=== PATIENT | male | born 1975 | race Caucasian/White ===

== ENCOUNTER 2016-05-24 07:14 | Inpatient (IN) | payer MEDICARE, MEDICAID ==
--- NOTE | 2016-05-24 07:21 | ER Document Report ---
ED General - General Stated Complaint: ALTERED MENTAL STATUS Mode of Arrival: Ambulatory Information source: Patient Notes: 41-year-old male presents with complaints of unresponsiveness. Pt found satting 73%, bp was low and this led friend to call ems. Pt immediately placed on oxygen and became more responsive. Pt denies any specific concerns but noted to have confusion TRAVEL OUTSIDE OF THE [place] IN LAST 30 DAYS: No - HPI Onset: Just prior to arrival Onset/Duration: Sudden Quality of pain: No pain Severity: Moderate Pain Level: Denies Associated symptoms: Weakness Exacerbated by: Denies Relieved by: Denies Similar symptoms previously: No Recently seen / treated by doctor: No - Related Data Allergies/Adverse Reactions: iodine [Iodine] Allergy (Unknown, Verified 06/06/14 22:20) Shellfish * [Shellfish] Allergy (Unknown, Verified 06/06/14 22:20) clonazepam [From Klonopin] Allergy (Verified 06/06/14 22:20) Past Medical History - Social History Smoking Status: Current Every Day Smoker Cigarette use (# per day): Yes Chew tobacco use (# tins/day): No Smoking Education Provided: No Family History: None, Hypertension - Past Medical History Cardiac Medical History: Reports: Hx Hypercholesterolemia, Hx Hypertension Pulmonary Medical History: Reports: Hx COPD Renal/ Medical History: Reports: Hx Renal Insufficiency GI Medical History: Reports: Hx Gastroesophageal Reflux Disease Musculoskeltal Medical History: Reports Hx Musculoskeletal Deformity, Reports Hx Musculoskeletal Trauma Skin Medical History: Reports Hx Cellulitis, Reports Hx MRSA Psychiatric Medical History: Reports: Hx Bipolar Disorder, Hx Depression, Hx Schizophrenia Infectious Medical History: Reports: Hx MRSA Past Surgical History: Reports: Hx Cholecystectomy, Hx Oral Surgery, Hx Orthopedic Surgery - 9 back surgeries, with lower abdominal midline incision. - Immunizations Hx Diphtheria, Pertussis, Tetanus Vaccination: Yes Hx Pneumococcal Vaccination: 02/06/00 Review of Systems - Review of Systems Notes: REVIEW OF SYSTEMS: CONSTITUTIONAL : Denies fever, chills, or sweats. Denies recent illness. Low blood pressure EENT: Denies eye, ear, throat, or mouth pain or symptoms. Denies nasal or sinus congestion or discharge. Denies throat, tongue, or mouth swelling or difficulty swallowing. CARDIOVASCULAR: Denies chest pain. Denies palpitations or racing or irregular heart beat. Denies ankle edema. RESPIRATORY: Denies cough, cold, or chest congestion. Denies shortness of breath, difficulty breathing, or wheezing. GASTROINTESTINAL: Denies abdominal pain or distention. Denies nausea, vomiting , or diarrhea. Denies blood in vomitus, stools, or per rectum. Denies black, tarry stools. Denies constipation. GENITOURINARY: Denies difficulty urinating, painful urination, burning, frequency, blood in urine, or discharge. MUSCULOSKELETAL: Denies back or neck pain or stiffness. Denies joint pain or swelling. SKIN: Denies rash, lesions or sores. HEMATOLOGIC : Denies easy bruising or bleeding. LYMPHATIC: Denies swollen, enlarged glands. NEUROLOGICAL: Denies confusion or altered mental status. Denies passing out or loss of consciousness. Denies dizziness or lightheadedness. Denies headache. Denies weakness or paralysis or loss of use of either side. Denies problems with gait or speech. Denies sensory loss, numbness, or tingling. Denies seizures. PSYCHIATRIC: Denies anxiety or stress. Denies depression, suicidal ideation, or homicidal ideation. ALL OTHER SYSTEMS REVIEWED AND NEGATIVE. Dictation was performed using [email or web address] voice recognition software PHYSICAL EXAMINATION: GENERAL: Drowsy appearing male opens eyes to voice stimuli HEAD: Atraumatic, normocephalic. EYES: Pupils equal round and reactive to light, extraocular movements intact, sclera anicteric, conjunctiva are normal. ENT: Nares patent, oropharynx clear without exudates. Moist mucous membranes. NECK: Normal range of motion, supple without lymphadenopathy LUNGS: Breath sounds clear to auscultation bilaterally and equal. No wheezes rales or rhonchi. HEART: Regular rate and rhythm without murmurs ABDOMEN: Soft, nontender, nondistended abdomen. No guarding, no rebound. No masses appreciated. Musculoskeletal: Normal range of motion, no pitting or edema. No cyanosis. NEUROLOGICAL: Cranial nerves grossly intact. TENS unit in place patient drowsy in appearance SKIN: Warm, Dry, normal turgor, no rashes or lesions noted. Physical Exam - Vital signs Vitals: Temp Pulse Resp BP Pulse Ox 97.4 F 100 25 H 137/68 H 96 05/24/16 07:20 05/24/16 07:20 05/24/16 07:20 05/24/16 07:20 05/24/16 07:20 Course - Re-evaluation Re-evalutation: 05/24/16 07:25 Patient is quite drowsy but protecting his airway O2 sats vitals appear stable workup pending 05/24/16 09:29 pt noted to have bilateral pneumonia, started on antibiotics, pt meets sepsis criteria dr malaika pearce for admission 05/24/16 09:34 pt no longer responding to voice stimuli and is now having decreased pain stimuli, i will intubate 05/24/16 11:23 pt intubated and admitted to icu - Vital Signs Vital signs: Temp Pulse Resp BP Pulse Ox 97.4 F 100 21 H 103/71 97 05/24/16 07:20 05/24/16 07:20 05/24/16 11:01 05/24/16 11:01 05/24/16 11:02 - Laboratory Result Diagrams: 05/24/16 08:00 05/24/16 08:00 Laboratory results interpreted by me: 05/24/16 05/24/16 05/24/16 07:19 08:00 08:00 WBC 14.3 H RDW 18.7 H Seg Neutrophils % 85.0 H Lymphocytes % 9.6 L Absolute Neutrophils 12.2 H POC Glucose 126 H Ammonia NT-Pro-B Natriuret Pep Salicylates < 1.0 L Acetaminophen < 10 L 05/24/16 05/24/16 08:00 08:00 WBC RDW Seg Neutrophils % Lymphocytes % Absolute Neutrophils POC Glucose Ammonia < 8.7 L NT-Pro-B Natriuret Pep 457 H Salicylates Acetaminophen - Diagnostic Test Radiology reviewed: Image reviewed, Reports reviewed - EKG Interpretation by Me EKG shows normal: Sinus rhythm, Means, Intervals, QRS Complexes Procedures - Intubation Orotracheal Time of Intubation: 09:45 Airway evaluation: Normal anatomy Mallampati Classification: Class 3 Medications: Etomidate, Succinylcholine Intubation method: Orotracheal Blade type: Ronaldo Blade size: 4 ETT size: 8.0 ETT secured at: Lips ETT secured at (cm): 21 Breath Sounds after Intubation: Equal End tidal CO2 confirmed: Yes Intubation Complications: No complications Critical Care Note - Critical Care Note Total time excluding time spent on procedures (mins): 37 Comments: 37 minutes of critical care time spent in direct contact evaluating and reevaluating the patient, treating symptoms, reviewing labs and studies and speaking with family and consultants excluding any procedures Discharge - Discharge Clinical Impression: COPD (chronic obstructive pulmonary disease) Qualifiers: COPD type: unspecified COPD Qualified Code(s): J44.9 - Chronic obstructive pulmonary disease, unspecified Sepsis Qualifiers: Sepsis type: sepsis due to unspecified organism Qualified Code(s): A41.9 - Sepsis, unspecified organism Pneumonia Qualifiers: Pneumonia type: due to unspecified organism Laterality: bilateral Lung location : lower lobe of lung Qualified Code(s): J18.9 - Pneumonia, unspecified organism Respiratory failure Qualifiers: Chronicity: acute Respiratory failure complication: unspecified whether with hypoxia or hypercapnia Qualified Code(s): J96.00 - Acute respiratory failure, unspecified whether with hypoxia or hypercapnia Condition: Critical Disposition: ADMITTED INPATIENT Admitting Provider: Malaika Unit Admitted: ICU Referrals: JESSIE ORTIZ MD [Primary Care Provider] - Follow up as needed
[2016-05-24 08:14] LABS: VENOUS BLOOD BASE EXCESS 2.1 mmol/L; VENOUS BLOOD PCO2 43.3 mmHg (35-63); VENOUS BLOOD PH 7.41 (7.30-7.42)
[2016-05-24 08:24] LABS: APPEARANCE,URINE CLEAR; BILIRUBIN,URINE NEGATIVE (NEGATIVE); GLUCOSE, URINE NEGATIVE (NEGATIVE); KETONES,URINE NEGATIVE (NEGATIVE); LEUKOCYTE ESTERASE,URINE NEGATIVE (NEGATIVE); NITRITE,URINE NEGATIVE (NEGATIVE); PROTEIN,URINE NEGATIVE (NEGATIVE); URINE SPECIFIC GRAVITY 1.004; UROBILINOGEN,URINE NEGATIVE mg/dL (<2.0)
[2016-05-24 08:25] LABS: ABSOLUTE BASOPHILS # (AUTO) 0.1 10^3/uL (0.0-0.2); ABSOLUTE LYMPHOCYTES (AUTO) 1.4 10^3/uL (0.5-4.7); ABSOLUTE MONOCYTES (AUTO) 0.7 10^3/uL (0.1-1.4); ABSOLUTE NEUT (AUTO) 12.2 10^3/uL (1.7-8.2); BASOPHILS % (AUTO) 0.4 % (0-2); EOSINOPHILS % (AUTO) 0.3 % (0-6); HEMATOCRIT 41.6 % (37.9-51.0); HGB HCT DIFFERENCE 0.4; LYMPHOCYTES % (AUTO) 9.6 % (13-45); MEAN CORPUSCULAR HGB CONC 33.7 g/dL (32.0-36.0); MEAN CORPUSCULAR VOLUME 80 fl (80-97); MONOCYTES % (AUTO) 4.7 % (3-13); RED BLOOD COUNT 5.19 10^6/uL (4.35-5.55); RED CELL DISTRIBUTION WIDTH 18.7 % (11.5-14.0); WHITE BLOOD COUNT 14.3 10^3/uL (4.0-10.5)
[2016-05-24 08:30] LABS: ALANINE AMINOTRANSFERASE 30 U/L (21-72); ALBUMIN 3.9 g/dL (3.5-5.0); ALKALINE PHOSPHATASE 71 U/L (38-126); ANION GAP 10 (5-19); ASPARTATE AMINO TRANSFERASE 33 U/L (17-59); BILIRUBIN,DIRECT 0.4 mg/dL (0.0-0.4); BILIRUBIN,TOTAL 0.8 mg/dL (0.2-1.3); BLOOD UREA NITROGEN 9 mg/dL (7-20); CALCIUM 9.6 mg/dL (8.4-10.2); CARBON DIOXIDE 28 mmol/L (22-30); CHLORIDE 107 mmol/L (98-107); CREATINE KINASE 152 U/L (55-170); CREATININE RESULT 0.74 mg/dL (0.52-1.25); GLUCOSE 92 mg/dL (75-110); POTASSIUM 4.5 mmol/L (3.6-5.0); SODIUM 144.5 mmol/L (137-145); TOTAL PROTEIN 6.7 g/dL (6.3-8.2)
--- NOTE | 2016-05-24 08:30 | EKG REPORT ---
SEVERITY:- ABNORMAL ECG - SINUS RHYTHM PROBABLE LEFT ATRIAL ABNORMALITY PROBABLE INFERIOR INFARCT, AGE INDETERMINATE : Confirmed by: Irene Lopez MD 24-May-2016 08:29:46
[2016-05-24 08:33] LABS: ALCOHOL < 10 mg/dL (NONE DETECTED)
[2016-05-24 08:39] LABS: URINE BARBITURATES SCREEN NEGATIVE; URINE METHADONE SCREEN NEGATIVE; URINE OPIATES LOW UNCONFIRMED POSITIVE; URINE PHENCYCLIDINE SCREEN NEGATIVE
[2016-05-24 08:41] LABS: CREATINE KINASE MB 2.34 ng/mL (<4.55)
[2016-05-24 08:42] LABS: TROPONIN I < 0.012 ng/mL
[2016-05-24] MEDS ORDERED: LEVOFLOXACIN 500 MG/D5W RTU 100 ML IV ONE (09:13)
[2016-05-24] MEDS ORDERED: ETOMIDATE INJ/PF 20 MG/10 ML SDV IV ONE ×2 (09:38→09:49)
[2016-05-24] MEDS ORDERED: PROPOFOL 100 ML IV ONE (09:38)
[2016-05-24] MEDS ORDERED: PROPOFOL 100 ML IV PRN (09:49)
[2016-05-24] MEDS ORDERED: SUCCINYLCHOLINE CHLORIDE INJ 200 MG/10 ML VIAL IV ONE (09:49)
[2016-05-24] MEDS ORDERED: FENTANYL CITRATE INJ/PF 100 MCG/2 ML AMPUL IV ONE (10:10)
[2016-05-24] MEDS ORDERED: MIDAZOLAM HCL 100 ML IV PRN (10:10)
[2016-05-24] MEDS ORDERED: NORMAL SALINE 1000 ML 1,000 ML IV PRN (12:44)
[2016-05-24] MEDS ORDERED: ACETAMINOPHEN 650 MG SUPP.RECT PR PRN (13:28)
[2016-05-24] MEDS ORDERED: ENOXAPARIN SODIUM INJ 40 MG/0.4 ML DISP.SYRIN SUBCUT ONE (14:30)
[2016-05-24] MEDS: PIPERACILLIN SODIUM/TAZOBACTAM 2.25 GM in NORMAL SALINE 50 ML IV SCH ×2 (15:18→20:09)
[2016-05-24] MEDS ORDERED: SUCCINYLCHOLINE CHLORIDE INJ 200 MG/10 ML VIAL ONE (15:20)
--- NOTE | 2016-05-24 16:58 | PDOC H&P ---
History of Present Illness Admission Date/PCP: 05/24/16 11:46 JESSIE ORTIZ Patient complains of: Hx of altered mental status; dyspnea and cough; his oxygen saturation was 70% on RA as per EMS. History of Present Illness: DONALD GARRIDO is a 41 year old male with hx of HTN/Hyperlipidemia/COPD/ Celiac disease/Back pain/GERD/Vitamin def./BPH/Schizophrenia/Depression/Anxiety disorder/Chronic smoker who was said to have altered mental status, cough, dyspnea and his oxygen saturation was 70% on room air. His WBC was 14.3. He could not maintain his airway and was intubated and put on mech. ventilation at ER. Past Medical History Cardiac Medical History: Reports: Hyperlipidema, Hypertension Pulmonary Medical History: Reports: Chronic Obstructive Pulmonary Disease (COPD) GI Medical History: Reports: Gastroesophageal Reflux Disease Psychiatric Medical History: Reports: Bipolar Disorder, Depression Infectious Medical History: Reports: Methicillin-Resistant Staph Aureus Past Surgical History Past Surgical History: Reports: Cholecystectomy, Orthopedic Surgery - 9 back surgeries, with lower abdominal midline incision. Social History Smoking Status: Current Every Day Smoker Frequency of Alcohol Use: None Hx Recreational Drug Use: No Drugs: None Hx Prescription Drug Abuse: No Family History Family History: None, Hypertension Parental Family History Reviewed: Yes Children Family History Reviewed: Yes Sibling(s) Family History Reviewed.: Yes Medication/Allergy Home Medications: Atorvastatin Calcium [Lipitor 20 mg Tablet] 20 mg PO DAILY 05/24/16 Baclofen [Baclofen 10 mg Tablet] 10 mg PO TID 05/24/16 Benztropine Mesylate [Benztropine Mesylate 2 mg Tablet] 2 mg PO BID 05/24/16 Enalapril Maleate [Vasotec 10 mg Tablet] 10 mg PO DAILY 05/24/16 Ergocalciferol (Vitamin D2) [Drisdol 50,000 Unit (1.25MG) Capsule] 50,000 unit PO MOFR@2200 05/24/16 Esomeprazole Magnesium [Nexium] 40 mg PO QAM 05/24/16 Fenofibrate Nanocrystallized [Fenofibrate] 145 mg PO DAILY 05/24/16 Fluoxetine HCl [Prozac] 80 mg PO DAILY 05/24/16 Gabapentin [Neurontin 100 mg Capsule] 200 mg PO Q12 05/24/16 Haloperidol 10 mg PO QPM 05/24/16 Lorazepam [Ativan 1 mg Tablet] 1 mg PO TIDP PRN 05/24/16 Metoprolol Succinate [Toprol Xl 50 mg Tab.sr] 50 mg PO DAILY 05/24/16 Midodrine HCl [Proamatine 5 Mg Tablet] 10 mg PO DAILY 05/24/16 Ondansetron HCl [Zofran 4 mg Tablet] 1 tab PO TIDP PRN 05/24/16 Oxycodone HCl 15 mg PO Q6HP PRN 05/24/16 Oxycodone HCl [Oxycontin] 60 mg PO Q8 05/24/16 Quetiapine Fumarate [Seroquel] 800 mg PO QHS 05/24/16 Ropinirole HCl [Requip 0.25 Mg Tablet] 0.25 mg PO HSP PRN 05/24/16 Tamsulosin HCl [Flomax 0.4 mg Cap.sr] 0.4 mg PO DAILY 05/24/16 Zolpidem Tartrate [Ambien] 5 mg PO HSP PRN 05/24/16 Allergies/Adverse Reactions: iodine [Iodine] Allergy (Unknown, Verified 06/06/14 22:20) Shellfish * [Shellfish] Allergy (Unknown, Verified 06/06/14 22:20) clonazepam [From Klonopin] Allergy (Verified 06/06/14 22:20) Review of Systems ROS unobtainable: Due to endotracheal tube Physical Exam Vital Signs: Temp Pulse Resp BP Pulse Ox 97.4 F 90 21 H 116/76 99 05/24/16 07:20 05/24/16 09:45 05/24/16 15:21 05/24/16 15:21 05/24/16 15:21 Intake & Output 05/23/16 05/24/16 05/25/16 06:59 06:59 06:59 Weight 92 kg General appearance: PRESENT: mild distress, well-developed, well-nourished Head exam: PRESENT: atraumatic, normocephalic Eye exam: PRESENT: EOMI, PERRLA Mouth exam: PRESENT: neck supple Respiratory exam: PRESENT: crackles, decreased breath sounds, wheezes Cardiovascular exam: PRESENT: +S1, +S2 GI/Abdominal exam: PRESENT: normal bowel sounds, soft Rectal exam: PRESENT: deferred Results Impressions: Head CT 05/24/16 07:18 IMPRESSION: Motion artifact. Limited negative study Chest X-Ray 05/24/16 10:11 IMPRESSION: Nasogastric tube tip above the eva. Continued bibasilar densities. Assessment & Plan - Diagnosis (1) Sepsis Qualifiers: Sepsis type: sepsis due to unspecified organism Qualified Code(s): A41.9 - Sepsis, unspecified organism Is this a current diagnosis for this admission?: YesPlan: Ct with IV fluids D5 in normal saline at 100 ml/hr; Zozyn 2.25 g q6gh iV; Levaquin 750 mg qd IV; Tylenol 650 mg q4h prn suppository. F/u blood cultures. (2) Acute hypoxemic respiratory failure Is this a current diagnosis for this admission?: YesPlan: Ct with Mechanical ventilation at Tidal volume of 500; PEEP of 5; FIO2 of 65% and Resp. rate of 12. F/u Automation And Control Engineer for Ventilatory mgt. (3) COPD (chronic obstructive pulmonary disease) Qualifiers: COPD type: unspecified COPD Qualified Code(s): J44.9 - Chronic obstructive pulmonary disease, unspecified Is this a current diagnosis for this admission?: YesPlan: Ct with Duonebs q4h prn. (4) Hypertension Is this a current diagnosis for this admission?: YesPlan: Hold MetorpololXR 50 mg qd for now. (5) Hyperlipidemia Is this a current diagnosis for this admission?: YesPlan: Hold Atorvastatin 20 mg qhs and Tricor 145 mg qd for now. (6) GERD (gastroesophageal reflux disease) Is this a current diagnosis for this admission?: YesPlan: Ct with Protonix 40 mg qd IV. (7) Chronic back pain Is this a current diagnosis for this admission?: YesPlan: Hold Percocet 10/325 1 q6h prn for now. (8) DVT prophylaxis Is this a current diagnosis for this admission?: YesPlan: Ct with Lovenox 40 mg qd subcut; SCD. - Time Time Spent: 30 to 50 Minutes Critical Time spent with patient: 35 or more minutes Smoking Cessation Education: 3 to 10 minutes Medications reviewed and adjusted accordingly: Yes Anticipated discharge: Home Within: within 72 hours - Inpatient Certification Medical Necessity: Failure to Improve With Outpatient Therapy, Significant Comorbidiites Make Outpatient Treatment Too Risky, Need Close Monitoring Due to Risk of Patient Decompensation, Need For IV Fluids, Need For Continuous Telemetry Monitoring, Need for Nebulizer Therapy and Monitoring of Response, Need for IV Antibiotics
[2016-05-24] MEDS ORDERED: MIDAZOLAM HCL 100 ML IV ONE (18:28)
[2016-05-24 18:52] LABS: ARTERIAL BLOOD BASE EXCESS 2.7 mmol/L; ARTERIAL BLOOD O2 SATURATION 96.9 % (94-98)
[2016-05-24] MEDS: DEXTROSE 5%-NORMAL SALINE 1,000 ML IV PRN (20:09)
[2016-05-24] MEDS: PROPOFOL 100 ML IV PRN ×3 (20:10→22:52)
[2016-05-24] MEDS: MIDAZOLAM HCL 100 ML IV PRN (22:52)
[2016-05-25] MEDS: PROPOFOL 100 ML IV PRN ×9 (01:59→23:41)
[2016-05-25] MEDS: PIPERACILLIN SODIUM/TAZOBACTAM 2.25 GM in NORMAL SALINE 50 ML IV SCH ×4 (02:00→20:04)
[2016-05-25] MEDS: MIDAZOLAM HCL 100 ML IV PRN ×5 (02:26→21:46)
[2016-05-25 04:08] LABS: ABSOLUTE BASOPHILS # (AUTO) 0.1 10^3/uL (0.0-0.2); ABSOLUTE EOSINOPHILS # (AUTO) 0.1 10^3/uL (0.0-0.6); ABSOLUTE LYMPHOCYTES (AUTO) 1.9 10^3/uL (0.5-4.7); ABSOLUTE MONOCYTES (AUTO) 0.4 10^3/uL (0.1-1.4); ABSOLUTE NEUT (AUTO) 2.4 10^3/uL (1.7-8.2); BASOPHILS % (AUTO) 1.3 % (0-2); EOSINOPHILS % (AUTO) 1.4 % (0-6); HEMATOCRIT 35.8 % (37.9-51.0); HGB HCT DIFFERENCE -0.1; LYMPHOCYTES % (AUTO) 39.5 % (13-45); MEAN CORPUSCULAR HEMOGLOBIN 26.8 pg (27.0-33.4); MEAN CORPUSCULAR HGB CONC 33.4 g/dL (32.0-36.0); MEAN CORPUSCULAR VOLUME 80 fl (80-97); MONOCYTES % (AUTO) 7.9 % (3-13); RED BLOOD COUNT 4.45 10^6/uL (4.35-5.55); RED CELL DISTRIBUTION WIDTH 18.5 % (11.5-14.0); SEGMENTED NEUTROPHILS % (AUTO) 49.9 % (42-78); WHITE BLOOD COUNT 4.8 10^3/uL (4.0-10.5)
[2016-05-25 04:11] LABS: HEMOGLOBIN 11.9 g/dL (13.5-17.0)
[2016-05-25 04:18] LABS: ALANINE AMINOTRANSFERASE 31 U/L (21-72); ALBUMIN 2.8 g/dL (3.5-5.0); ALKALINE PHOSPHATASE 62 U/L (38-126); ANION GAP 9 (5-19); ASPARTATE AMINO TRANSFERASE 22 U/L (17-59); BILIRUBIN,DIRECT 0.2 mg/dL (0.0-0.4); BILIRUBIN,TOTAL 0.4 mg/dL (0.2-1.3); BLOOD UREA NITROGEN 7 mg/dL (7-20); CALCIUM 8.5 mg/dL (8.4-10.2); CARBON DIOXIDE 26 mmol/L (22-30); CHLORIDE 112 mmol/L (98-107); CREATININE RESULT 0.65 mg/dL (0.52-1.25); Direct HDL 28 mg/dL (>40); GLUCOSE 96 mg/dL (75-110); PHOSPHORUS 5.1 mg/dL (2.5-4.5); POTASSIUM 3.6 mmol/L (3.6-5.0); SODIUM 146.9 mmol/L (137-145); TOTAL PROTEIN 5.3 g/dL (6.3-8.2); TRIGLYCERIDES 153 mg/dL (<150)
[2016-05-25 04:29] LABS: DIRECT LDL 56 mg/dL (<100)
[2016-05-25 04:30] LABS: VLDL CHOLESTEROL 30.6 mg/dL (10-31)
[2016-05-25 05:31] LABS: ARTERIAL BLOOD BASE EXCESS 1.3 mmol/L; ARTERIAL BLOOD O2 SATURATION 93.5 % (94-98)
[2016-05-25] MEDS: DEXTROSE 5%-NORMAL SALINE 1,000 ML IV PRN ×2 (05:48→21:45)
[2016-05-25] MEDS: ENOXAPARIN SODIUM INJ 40 MG/0.4 ML DISP.SYRIN SUBCUT SCH (07:50)
[2016-05-25] MEDS: LEVOFLOXACIN 750 MG/D5W RTU 750 MG/150 ML RTUPB IV SCH (10:20)
[2016-05-25] MEDS: PANTOPRAZOLE SODIUM 40 MG VIAL IV SCH (10:26)
--- NOTE | 2016-05-25 10:39 | PDOC PROGRESS REPORT ---
Subjective Progress Note for:: 05/25/16 Subjective:: He is still in ICU on mech. ventilation and FIO2 has been decreased to 40% and he seems to be stable on that.WE appreciate the input of customer sales consultant, Dr Lebron in the mgt of this pt.Anticipate early extubation. Meanwhile Ct to monitor him closely at ICU. Physical Exam Vital Signs: Temp Pulse Resp BP Pulse Ox 97.3 F 63 19 102/65 96 05/25/16 08:00 05/25/16 08:00 05/25/16 08:00 05/25/16 08:00 05/25/16 08:01 Intake & Output 05/24/16 05/25/16 05/26/16 06:59 06:59 06:59 Intake Total 1474 Output Total 1060 175 Balance 414 -175 Weight 90.9 kg General appearance: PRESENT: well-developed, well-nourished Eye exam: PRESENT: EOMI, PERRLA Ear exam: PRESENT: normal external ear exam Mouth exam: PRESENT: moist Respiratory exam: PRESENT: decreased breath sounds Cardiovascular exam: PRESENT: +S1, +S2 Pulses: PRESENT: +2 pedal pulses bilateral GI/Abdominal exam: PRESENT: normal bowel sounds, soft Rectal exam: PRESENT: deferred - Pt on [facility]. ventilator Results Laboratory Results: 05/25/16 03:49 05/25/16 03:49 05/24/16 05/25/16 05/25/16 18:35 03:49 03:49 WBC RBC Hgb Hct MCV MCH MCHC RDW Plt Count Seg Neutrophils % Lymphocytes % Monocytes % Eosinophils % Basophils % Absolute Neutrophils Absolute Lymphocytes Absolute Monocytes Absolute Eosinophils Absolute Basophils Carbonic Acid 1.33 HCO3/H2CO3 Ratio 20:1 ABG pH 7.42 ABG pCO2 44.1 ABG pO2 88.9 ABG HCO3 27.7 H ABG O2 Saturation 96.9 ABG Base Excess 2.7 FiO2 40% Sodium 146.9 H Potassium 3.6 Chloride 112 H Carbon Dioxide 26 Anion Gap 9 BUN 7 Creatinine 0.65 Est GFR ( Amer) > 60 Est GFR (Non-Af Amer) > 60 Glucose 96 Calcium 8.5 Phosphorus 5.1 H Magnesium 2.0 Total Bilirubin 0.4 AST 22 ALT 31 Alkaline Phosphatase 62 Total Protein 5.3 L Albumin 2.8 L Triglycerides 153 H Cholesterol 125.40 LDL Cholesterol Direct 56 VLDL Cholesterol 30.6 HDL Cholesterol 28 L TSH 0.38 L 05/25/16 05/25/16 03:49 05:20 WBC 4.8 RBC 4.45 Hgb 11.9 L D Hct 35.8 L MCV 80 MCH 26.8 L MCHC 33.4 RDW 18.5 H Plt Count 197 Seg Neutrophils % 49.9 Lymphocytes % 39.5 Monocytes % 7.9 Eosinophils % 1.4 Basophils % 1.3 Absolute Neutrophils 2.4 Absolute Lymphocytes 1.9 Absolute Monocytes 0.4 Absolute Eosinophils 0.1 Absolute Basophils 0.1 Carbonic Acid 1.29 HCO3/H2CO3 Ratio 20:1 ABG pH 7.40 ABG pCO2 42.9 ABG pO2 67.4 L ABG HCO3 26.2 H ABG O2 Saturation 93.5 L ABG Base Excess 1.3 FiO2 40% Sodium Potassium Chloride Carbon Dioxide Anion Gap BUN Creatinine Est GFR ( Amer) Est GFR (Non-Af Amer) Glucose Calcium Phosphorus Magnesium Total Bilirubin AST ALT Alkaline Phosphatase Total Protein Albumin Triglycerides Cholesterol LDL Cholesterol Direct VLDL Cholesterol HDL Cholesterol TSH Impressions: KUB X-Ray 05/24/16 00:00 IMPRESSION: Colonic distention. NG tube is in the stomach. Head CT 05/24/16 07:18 IMPRESSION: Motion artifact. Limited negative study Chest X-Ray 05/25/16 06:00 IMPRESSION: Stable. Left basilar effusion-opacity. Lines and tubes. Assessment & Plan - Diagnosis (1) Sepsis Qualifiers: Sepsis type: sepsis due to unspecified organism Qualified Code(s): A41.9 - Sepsis, unspecified organism Is this a current diagnosis for this admission?: YesPlan: Ct with IV fluids D5 in normal saline at 100 ml/hr; Zozyn 2.25 g q6gh iV; Levaquin 750 mg qd IV; Tylenol 650 mg q4h prn suppository. F/u blood and sputum cultures. (2) Acute hypoxemic respiratory failure Is this a current diagnosis for this admission?: YesPlan: Ct with Mechanical ventilation at Tidal volume of 500; PEEP of 5; FIO2 of 40% and Resp. rate of 12. Ct with Propofol and Vessed IV as per protocol. F/u Family Service Worker,Dr Lebron for Ventilatory mgt. (3) COPD (chronic obstructive pulmonary disease) Qualifiers: COPD type: unspecified COPD Qualified Code(s): J44.9 - Chronic obstructive pulmonary disease, unspecified Is this a current diagnosis for this admission?: YesPlan: Ct with Duonebs q4h prn. (4) Hypertension Is this a current diagnosis for this admission?: YesPlan: Hold MetorpololXR 50 mg qd for now. (5) Hyperlipidemia Is this a current diagnosis for this admission?: YesPlan: Hold Atorvastatin 20 mg qhs and Tricor 145 mg qd for now. (6) GERD (gastroesophageal reflux disease) Is this a current diagnosis for this admission?: YesPlan: Ct with Protonix 40 mg qd IV. (7) Chronic back pain Is this a current diagnosis for this admission?: YesPlan: Hold Percocet 10/325 1 q6h prn for now. (8) DVT prophylaxis Is this a current diagnosis for this admission?: YesPlan: Ct with SCD. - Inpatient Certification I certify that my determination is in accordance with my understanding of Medicare's requirements for reasonable and necessary INPATIENT services [42 CFR 412.3e].: Yes
[2016-05-25] MEDS: IPRATROPIUM/ALBUTEROL 0.5-2.5 MG/3 ML AMPUL NEB PRN (13:31)
[2016-05-25 14:22] LABS: ARTERIAL BLOOD BASE EXCESS -2.4 mmol/L; ARTERIAL BLOOD O2 SATURATION 92.7 % (94-98)
[2016-05-25] MEDS ORDERED: LORAZEPAM 1 MG TABLET PO PRN (16:33)
[2016-05-25] MEDS ORDERED: ROPINIROLE HCL 0.25 MG TABLET PO PRN (16:33)
[2016-05-25] MEDS ORDERED: (PENDING PHARMACY ID) (Zolpidem Tartrate [Ambien] 5 MG) PO PRN (16:33)
[2016-05-25] MEDS ORDERED: ZOLPIDEM TARTRATE 5 MG TABLET PO PRN (16:42)
[2016-05-25] MEDS ORDERED: OXYCODONE HCL IR 5 MG TABLET PO PRN (16:45)
[2016-05-25] MEDS ORDERED: ENALAPRIL MALEATE 10 MG TABLET PO ONE (17:00)
[2016-05-25] MEDS ORDERED: METOPROLOL SUCCINATE 50 MG TAB.SR.24H PO ONE (17:00)
[2016-05-25] MEDS ORDERED: MIDODRINE HCL 5 MG TABLET PO ONE (17:30)
[2016-05-25] MEDS ORDERED: HALOPERIDOL 5 MG TABLET PO SCH (18:00)
[2016-05-25] MEDS ORDERED: BENZTROPINE MESYLATE 1 MG TABLET PO SCH (18:00)
[2016-05-25] MEDS ORDERED: (PENDING PHARMACY ID) (Benztropine Mesylate [Benztropine Mesylate 2 Mg Tablet] 2 MG) PO SCH (18:00)
[2016-05-25] MEDS ORDERED: (PENDING PHARMACY ID) (Haloperidol [Haloperidol] 10 MG) PO SCH (18:00)
[2016-05-25] MEDS ORDERED: BACLOFEN 10 MG TABLET PO SCH (18:00)
[2016-05-25] MEDS ORDERED: LORAZEPAM 1 MG TABLET NG PRN (18:28)
[2016-05-25] MEDS ORDERED: ZOLPIDEM TARTRATE 5 MG TABLET NG PRN (18:32)
[2016-05-25] MEDS ORDERED: ROPINIROLE HCL 0.25 MG TABLET NG PRN (18:32)
[2016-05-25] MEDS: NORMAL SALINE 500 ML with ROCURONIUM BROMIDE 500 MG IV PRN ×2 (18:38)
[2016-05-25 20:37] LABS: ARTERIAL BLOOD BASE EXCESS -0.4 mmol/L; ARTERIAL BLOOD O2 SATURATION 93.2 % (94-98)
[2016-05-25] MEDS: OXYCODONE HCL SR 10 MG TABLET PO SCH (21:42)
[2016-05-25] MEDS: QUETIAPINE FUMARATE 100 MG TABLET NG SCH (21:45)
[2016-05-25] MEDS: GABAPENTIN 100 MG CAPSULE NG SCH (21:46)
[2016-05-25] MEDS ORDERED: GABAPENTIN 100 MG CAPSULE PO SCH (22:00)
[2016-05-25] MEDS ORDERED: OXYCODONE HCL 60 MG PO SCH (22:00)
[2016-05-25] MEDS ORDERED: QUETIAPINE FUMARATE 100 MG TABLET PO SCH (22:00)
[2016-05-25] MEDS ORDERED: (PENDING PHARMACY ID) (Quetiapine Fumarate [Seroquel] 800 MG) PO SCH (22:00)
[2016-05-26] MEDS: PIPERACILLIN SODIUM/TAZOBACTAM 2.25 GM in NORMAL SALINE 50 ML IV SCH ×4 (02:04→20:14)
[2016-05-26] MEDS: PROPOFOL 100 ML IV PRN ×7 (02:05→23:01)
[2016-05-26 04:04] LABS: ABSOLUTE LYMPHOCYTES (AUTO) 1.2 10^3/uL (0.5-4.7); ABSOLUTE MONOCYTES (AUTO) 0.6 10^3/uL (0.1-1.4); ABSOLUTE NEUT (AUTO) 6.3 10^3/uL (1.7-8.2); BASOPHILS % (AUTO) 0.4 % (0-2); EOSINOPHILS % (AUTO) 0.5 % (0-6); HEMOGLOBIN 12.2 g/dL (13.5-17.0); HGB HCT DIFFERENCE -0.4; MEAN CORPUSCULAR VOLUME 82 fl (80-97); MONOCYTES % (AUTO) 6.7 % (3-13); RED BLOOD COUNT 4.52 10^6/uL (4.35-5.55); RED CELL DISTRIBUTION WIDTH 19.5 % (11.5-14.0); SEGMENTED NEUTROPHILS % (AUTO) 77.4 % (42-78); WHITE BLOOD COUNT 8.2 10^3/uL (4.0-10.5)
[2016-05-26 04:11] LABS: ALANINE AMINOTRANSFERASE 27 U/L (21-72); ALKALINE PHOSPHATASE 60 U/L (38-126); ANION GAP 8 (5-19); ASPARTATE AMINO TRANSFERASE 26 U/L (17-59); BILIRUBIN,DIRECT 0.3 mg/dL (0.0-0.4); BILIRUBIN,TOTAL 0.5 mg/dL (0.2-1.3); BLOOD UREA NITROGEN 6 mg/dL (7-20); CALCIUM 8.7 mg/dL (8.4-10.2); CARBON DIOXIDE 28 mmol/L (22-30); CHLORIDE 115 mmol/L (98-107); CREATININE RESULT 0.63 mg/dL (0.52-1.25); GLUCOSE 97 mg/dL (75-110); PHOSPHORUS 5.4 mg/dL (2.5-4.5); POTASSIUM 3.7 mmol/L (3.6-5.0); SODIUM 150.7 mmol/L (137-145); TOTAL PROTEIN 5.8 g/dL (6.3-8.2)
[2016-05-26] MEDS: OXYCODONE HCL SR 10 MG TABLET PO SCH ×3 (05:09→21:05)
[2016-05-26 05:30] LABS: ARTERIAL BLOOD BASE EXCESS -2.5 mmol/L; ARTERIAL BLOOD O2 SATURATION 93.3 % (94-98)
[2016-05-26] MEDS: NORMAL SALINE 500 ML with ROCURONIUM BROMIDE 500 MG IV PRN ×4 (05:54→23:01)
[2016-05-26] MEDS: MIDAZOLAM HCL 100 ML IV PRN ×2 (05:54→16:08)
[2016-05-26] MEDS ORDERED: METOPROLOL SUCCINATE 50 MG TAB.SR.24H PO SCH (10:00)
[2016-05-26] MEDS ORDERED: ENALAPRIL MALEATE 10 MG TABLET PO SCH (10:00)
[2016-05-26] MEDS ORDERED: MIDODRINE HCL 5 MG TABLET PO SCH (10:00)
[2016-05-26] MEDS: ENOXAPARIN SODIUM INJ 40 MG/0.4 ML DISP.SYRIN SUBCUT SCH (10:54)
[2016-05-26] MEDS: MIDODRINE HCL 5 MG TABLET NG SCH (10:56)
[2016-05-26] MEDS: PANTOPRAZOLE SODIUM 40 MG VIAL IV SCH (10:56)
[2016-05-26] MEDS: LEVOFLOXACIN 750 MG/D5W RTU 750 MG/150 ML RTUPB IV SCH (10:56)
[2016-05-26] MEDS: BENZTROPINE MESYLATE 1 MG TABLET NG SCH ×2 (10:57→18:28)
[2016-05-26] MEDS: GABAPENTIN 100 MG CAPSULE NG SCH ×2 (10:57→21:06)
[2016-05-26] MEDS: ENALAPRIL MALEATE 10 MG TABLET NG SCH (10:58)
[2016-05-26] MEDS: BACLOFEN 10 MG TABLET NG SCH ×3 (10:58→18:30)
--- NOTE | 2016-05-26 11:43 | PDOC CONSULTATION ---
Consultation Consult Date: 05/25/16 Attending physician:: JESSIE ORTIZ Consult reason:: Respiratory arrest History of Present Illness Admission Date/PCP: 05/24/16 18:30 JESSIE ORTIZ History of Present Illness: All information from hospital records as patient is currently intubated and sedated no one at bedside DONALD GARRIDO is a 41 year old male with hx of HTN /Hyperlipidemia/COPD/Celiac disease/Back pain/GERD/Vitamin def./BPH/ Schizophrenia/Depression/Anxiety disorder/Chronic smoker who was said to have altered mental status, cough, dyspnea and his oxygen saturation was 70% on room air. His WBC was 14.3. He could not maintain his airway and was intubated and put on mech. ventilation at ER. Past Medical History Cardiac Medical History: Reports: Hyperlipidema, Hypertension Pulmonary Medical History: Reports: Chronic Obstructive Pulmonary Disease (COPD) GI Medical History: Reports: Gastroesophageal Reflux Disease Psychiatric Medical History: Reports: Bipolar Disorder, Depression Infectious Medical History: Reports: Methicillin-Resistant Staph Aureus Past Surgical History Past Surgical History: Reports: Cholecystectomy, Orthopedic Surgery - 9 back surgeries, with lower abdominal midline incision. Social History Smoking Status: Current Every Day Smoker Frequency of Alcohol Use: None Hx Recreational Drug Use: No Drugs: None Hx Prescription Drug Abuse: No - Advance Directive Resuscitation Status: Full Code Family History Family History: None, Hypertension Parental Family History Reviewed: No Children Family History Reviewed: No Sibling(s) Family History Reviewed.: No Medication/Allergy Home Medications: Atorvastatin Calcium [Lipitor 20 mg Tablet] 20 mg PO DAILY 05/24/16 Baclofen [Baclofen 10 mg Tablet] 10 mg PO TID 05/24/16 Benztropine Mesylate [Benztropine Mesylate 2 mg Tablet] 2 mg PO BID 05/24/16 Enalapril Maleate [Vasotec 10 mg Tablet] 10 mg PO DAILY 05/24/16 Ergocalciferol (Vitamin D2) [Drisdol 50,000 Unit (1.25MG) Capsule] 50,000 unit PO MOFR@2200 05/24/16 Esomeprazole Magnesium [Nexium] 40 mg PO QAM 05/24/16 Fenofibrate Nanocrystallized [Fenofibrate] 145 mg PO DAILY 05/24/16 Fluoxetine HCl [Prozac] 80 mg PO DAILY 05/24/16 Gabapentin [Neurontin 100 mg Capsule] 200 mg PO Q12 05/24/16 Haloperidol 10 mg PO QPM 05/24/16 Lorazepam [Ativan 1 mg Tablet] 1 mg PO TIDP PRN 05/24/16 Metoprolol Succinate [Toprol Xl 50 mg Tab.sr] 50 mg PO DAILY 05/24/16 Midodrine HCl [Proamatine 5 Mg Tablet] 10 mg PO DAILY 05/24/16 Ondansetron HCl [Zofran 4 mg Tablet] 1 tab PO TIDP PRN 05/24/16 Oxycodone HCl 15 mg PO Q6HP PRN 05/24/16 Oxycodone HCl [Oxycontin] 60 mg PO Q8 05/24/16 Quetiapine Fumarate [Seroquel] 800 mg PO QHS 05/24/16 Ropinirole HCl [Requip 0.25 Mg Tablet] 0.25 mg PO HSP PRN 05/24/16 Tamsulosin HCl [Flomax 0.4 mg Cap.sr] 0.4 mg PO DAILY 05/24/16 Zolpidem Tartrate [Ambien] 5 mg PO HSP PRN 05/24/16 Allergies/Adverse Reactions: iodine [Iodine] Allergy (Unknown, Verified 06/06/14 22:20) Shellfish * [Shellfish] Allergy (Unknown, Verified 06/06/14 22:20) clonazepam [From Klonopin] Allergy (Verified 06/06/14 22:20) Review of Systems ROS unobtainable: Due to endotracheal tube Physical Exam Vital Signs: Temp Pulse Resp BP Pulse Ox 97.0 F 63 20 108/77 96 05/25/16 06:00 05/25/16 04:00 05/25/16 06:00 05/25/16 05:31 05/25/16 08:01 Intake & Output 05/24/16 05/25/16 05/26/16 06:59 06:59 06:59 Intake Total 1474 Output Total 1060 Balance 414 Weight 90.9 kg General appearance: PRESENT: no acute distress, disheveled, well-developed, well -nourished Head exam: PRESENT: atraumatic, normocephalic Eye exam: PRESENT: conjunctiva pale Mouth exam: PRESENT: moist, neck supple, other - Endotracheal tube in place Neck exam: PRESENT: carotid bruit Respiratory exam: PRESENT: decreased breath sounds, prolonged expiratory phas, rales, symmetrical, unlabored Cardiovascular exam: PRESENT: RRR, +S1, +S2 Pulses: PRESENT: normal radial pulses GI/Abdominal exam: PRESENT: normal bowel sounds, soft. ABSENT: distended, guarding, mass, organolmegaly, rebound, tenderness Rectal exam: PRESENT: deferred Gentrourinary exam: PRESENT: indwelling catheter Musculoskeletal exam: PRESENT: normal inspection Skin exam: PRESENT: dry, warm Results Laboratory Results: 05/25/16 03:49 05/25/16 03:49 05/24/16 05/25/16 05/25/16 18:35 03:49 03:49 WBC RBC Hgb Hct MCV MCH MCHC RDW Plt Count Seg Neutrophils % Lymphocytes % Monocytes % Eosinophils % Basophils % Absolute Neutrophils Absolute Lymphocytes Absolute Monocytes Absolute Eosinophils Absolute Basophils Carbonic Acid 1.33 HCO3/H2CO3 Ratio 20:1 ABG pH 7.42 ABG pCO2 44.1 ABG pO2 88.9 ABG HCO3 27.7 H ABG O2 Saturation 96.9 ABG Base Excess 2.7 FiO2 40% Sodium 146.9 H Potassium 3.6 Chloride 112 H Carbon Dioxide 26 Anion Gap 9 BUN 7 Creatinine 0.65 Est GFR ( Amer) > 60 Est GFR (Non-Af Amer) > 60 Glucose 96 Calcium 8.5 Phosphorus 5.1 H Magnesium 2.0 Total Bilirubin 0.4 AST 22 ALT 31 Alkaline Phosphatase 62 Total Protein 5.3 L Albumin 2.8 L Triglycerides 153 H Cholesterol 125.40 LDL Cholesterol Direct 56 VLDL Cholesterol 30.6 HDL Cholesterol 28 L TSH 0.38 L 05/25/16 05/25/16 03:49 05:20 WBC 4.8 RBC 4.45 Hgb 11.9 L D Hct 35.8 L MCV 80 MCH 26.8 L MCHC 33.4 RDW 18.5 H Plt Count 197 Seg Neutrophils % 49.9 Lymphocytes % 39.5 Monocytes % 7.9 Eosinophils % 1.4 Basophils % 1.3 Absolute Neutrophils 2.4 Absolute Lymphocytes 1.9 Absolute Monocytes 0.4 Absolute Eosinophils 0.1 Absolute Basophils 0.1 Carbonic Acid 1.29 HCO3/H2CO3 Ratio 20:1 ABG pH 7.40 ABG pCO2 42.9 ABG pO2 67.4 L ABG HCO3 26.2 H ABG O2 Saturation 93.5 L ABG Base Excess 1.3 FiO2 40% Sodium Potassium Chloride Carbon Dioxide Anion Gap BUN Creatinine Est GFR ( Amer) Est GFR (Non-Af Amer) Glucose Calcium Phosphorus Magnesium Total Bilirubin AST ALT Alkaline Phosphatase Total Protein Albumin Triglycerides Cholesterol LDL Cholesterol Direct VLDL Cholesterol HDL Cholesterol TSH Impressions: KUB X-Ray 05/24/16 00:00 IMPRESSION: Colonic distention. NG tube is in the stomach. Head CT 05/24/16 07:18 IMPRESSION: Motion artifact. Limited negative study Chest X-Ray 05/25/16 06:00 IMPRESSION: Stable. Left basilar effusion-opacity. Lines and tubes. Assessment & Plan - Diagnosis (1) Acute hypoxemic respiratory failure Is this a current diagnosis for this admission?: YesPlan: Requiring high FiO2 consistent with radiographic evidence airway pressures do not delineate significant stiffness in the lungs at this time (2) Acute renal failure Is this a current diagnosis for this admission?: Yes (3) COPD (chronic obstructive pulmonary disease) Qualifiers: COPD type: unspecified COPD Qualified Code(s): J44.9 - Chronic obstructive pulmonary disease, unspecified Is this a current diagnosis for this admission?: YesPlan: Bronchodilator therapy as you have prescribed (4) Reflux esophagitis Is this a current diagnosis for this admission?: YesPlan: PPIs to be held IV H2 blockers - Time Critical Time spent with patient: 35 or more minutes
--- NOTE | 2016-05-26 11:49 | PDOC PROGRESS REPORT ---
Subjective Progress Note for:: 05/25/16 Subjective:: Intubated and sedated Physical Exam Vital Signs: Temp Pulse Resp BP Pulse Ox 97.0 F 63 20 108/77 96 05/25/16 06:00 05/25/16 04:00 05/25/16 06:00 05/25/16 05:31 05/25/16 08:01 Intake & Output 05/24/16 05/25/16 05/26/16 06:59 06:59 06:59 Intake Total 1474 Output Total 1060 Balance 414 Weight 90.9 kg General appearance: PRESENT: no acute distress, disheveled, well-developed, well -nourished Head exam: PRESENT: atraumatic, normocephalic Eye exam: PRESENT: conjunctiva pale Mouth exam: PRESENT: dry mucosa, neck supple, other - ET tube in place Neck exam: ABSENT: carotid bruit, JVD, lymphadenopathy, thyromegaly Respiratory exam: PRESENT: decreased breath sounds, prolonged expiratory phas, rales, rhonchi, symmetrical, tachypnea Cardiovascular exam: PRESENT: +S1, +S2 Pulses: PRESENT: normal radial pulses GI/Abdominal exam: PRESENT: normal bowel sounds, soft. ABSENT: distended, guarding, mass, organolmegaly, rebound, tenderness Rectal exam: PRESENT: deferred Gentrourinary exam: PRESENT: indwelling catheter Musculoskeletal exam: PRESENT: normal inspection Skin exam: PRESENT: dry, warm Results Laboratory Results: 05/25/16 03:49 05/25/16 03:49 05/24/16 05/25/16 05/25/16 18:35 03:49 03:49 WBC RBC Hgb Hct MCV MCH MCHC RDW Plt Count Seg Neutrophils % Lymphocytes % Monocytes % Eosinophils % Basophils % Absolute Neutrophils Absolute Lymphocytes Absolute Monocytes Absolute Eosinophils Absolute Basophils Carbonic Acid 1.33 HCO3/H2CO3 Ratio 20:1 ABG pH 7.42 ABG pCO2 44.1 ABG pO2 88.9 ABG HCO3 27.7 H ABG O2 Saturation 96.9 ABG Base Excess 2.7 FiO2 40% Sodium 146.9 H Potassium 3.6 Chloride 112 H Carbon Dioxide 26 Anion Gap 9 BUN 7 Creatinine 0.65 Est GFR ( Amer) > 60 Est GFR (Non-Af Amer) > 60 Glucose 96 Calcium 8.5 Phosphorus 5.1 H Magnesium 2.0 Total Bilirubin 0.4 AST 22 ALT 31 Alkaline Phosphatase 62 Total Protein 5.3 L Albumin 2.8 L Triglycerides 153 H Cholesterol 125.40 LDL Cholesterol Direct 56 VLDL Cholesterol 30.6 HDL Cholesterol 28 L TSH 0.38 L 05/25/16 05/25/16 03:49 05:20 WBC 4.8 RBC 4.45 Hgb 11.9 L D Hct 35.8 L MCV 80 MCH 26.8 L MCHC 33.4 RDW 18.5 H Plt Count 197 Seg Neutrophils % 49.9 Lymphocytes % 39.5 Monocytes % 7.9 Eosinophils % 1.4 Basophils % 1.3 Absolute Neutrophils 2.4 Absolute Lymphocytes 1.9 Absolute Monocytes 0.4 Absolute Eosinophils 0.1 Absolute Basophils 0.1 Carbonic Acid 1.29 HCO3/H2CO3 Ratio 20:1 ABG pH 7.40 ABG pCO2 42.9 ABG pO2 67.4 L ABG HCO3 26.2 H ABG O2 Saturation 93.5 L ABG Base Excess 1.3 FiO2 40% Sodium Potassium Chloride Carbon Dioxide Anion Gap BUN Creatinine Est GFR ( Amer) Est GFR (Non-Af Amer) Glucose Calcium Phosphorus Magnesium Total Bilirubin AST ALT Alkaline Phosphatase Total Protein Albumin Triglycerides Cholesterol LDL Cholesterol Direct VLDL Cholesterol HDL Cholesterol TSH Impressions: KUB X-Ray 05/24/16 00:00 IMPRESSION: Colonic distention. NG tube is in the stomach. Head CT 05/24/16 07:18 IMPRESSION: Motion artifact. Limited negative study Chest X-Ray 05/25/16 06:00 IMPRESSION: Stable. Left basilar effusion-opacity. Lines and tubes. Assessment & Plan - Diagnosis (1) Acute hypoxemic respiratory failure Is this a current diagnosis for this admission?: YesPlan: Increasing difficulty ventilating and oxygenating increasing FiO2 addendum return to patient later ABG showed deterioration in in oxygenation and ventilation patient was subsequently put on mode of ventilation called bi-vent this seems to have improved oxygenation and Ventilation stable so far (2) COPD (chronic obstructive pulmonary disease) Qualifiers: COPD type: unspecified COPD Qualified Code(s): J44.9 - Chronic obstructive pulmonary disease, unspecified Is this a current diagnosis for this admission?: YesPlan: Bronchodilator therapy as you have prescribed (3) Reflux esophagitis Is this a current diagnosis for this admission?: YesPlan: PPIs to be held IV H2 blockers (4) Pneumonia Qualifiers: Pneumonia type: due to unspecified organism Lung location: lower lobe of lung Qualified Code(s): J18.9 - Pneumonia, unspecified organism Is this a current diagnosis for this admission?: YesPlan: T-max 99 5, WBC 9000 no left shift no positive cultures thus far chest radiograph comparable to radiograph 6 weeks ago. As per this observer - Time Critical Time spent with patient: 35 or more minutes - 60 minutes
--- NOTE | 2016-05-26 11:52 | PDOC PROGRESS REPORT ---
Subjective Progress Note for:: 05/26/16 Subjective:: Intubated and sedated Physical Exam Vital Signs: Temp Pulse Resp BP Pulse Ox 98.4 F 77 12 103/70 100 05/26/16 06:20 05/26/16 03:55 05/26/16 06:20 05/26/16 06:20 05/26/16 06:20 Intake & Output 05/25/16 05/26/16 05/27/16 06:59 06:59 06:59 Intake Total 1474 7582 Output Total 1060 2390 Balance 414 5192 Weight 90.9 kg 95.7 kg General appearance: PRESENT: no acute distress, disheveled, well-developed, well -nourished Head exam: PRESENT: atraumatic, normocephalic Eye exam: PRESENT: conjunctiva pale Mouth exam: PRESENT: dry mucosa, neck supple, other - Endotracheal tube in place Neck exam: ABSENT: carotid bruit, JVD, lymphadenopathy, thyromegaly Respiratory exam: PRESENT: decreased breath sounds, prolonged expiratory phas, rales, rhonchi, unlabored Cardiovascular exam: PRESENT: RRR, +S1, +S2 Pulses: PRESENT: normal radial pulses GI/Abdominal exam: PRESENT: normal bowel sounds, soft. ABSENT: distended, guarding, mass, organolmegaly, rebound, tenderness Rectal exam: PRESENT: deferred Gentrourinary exam: PRESENT: indwelling catheter Musculoskeletal exam: PRESENT: normal inspection Skin exam: PRESENT: dry, warm Results Laboratory Results: 05/26/16 03:51 05/26/16 03:51 05/25/16 05/25/16 05/26/16 13:50 20:30 03:51 WBC 8.2 RBC 4.52 Hgb 12.2 L Hct 37.0 L MCV 82 MCH 27.0 MCHC 33.0 RDW 19.5 H Plt Count 187 Seg Neutrophils % 77.4 Lymphocytes % 15.0 Monocytes % 6.7 Eosinophils % 0.5 Basophils % 0.4 Absolute Neutrophils 6.3 Absolute Lymphocytes 1.2 Absolute Monocytes 0.6 Absolute Eosinophils 0.0 Absolute Basophils 0.0 Carbonic Acid 1.41 H 1.41 H HCO3/H2CO3 Ratio 16:1 18:1 ABG pH 7.33 L 7.35 ABG pCO2 46.8 H 47.0 H ABG pO2 69.8 L 69.7 L ABG HCO3 23.8 25.5 ABG O2 Saturation 92.7 L 93.2 L ABG Base Excess -2.4 -0.4 FiO2 60% 80% Sodium Potassium Chloride Carbon Dioxide Anion Gap BUN Creatinine Est GFR ( Amer) Est GFR (Non-Af Amer) Glucose Calcium Phosphorus Magnesium Total Bilirubin AST ALT Alkaline Phosphatase Total Protein Albumin 05/26/16 05/26/16 03:51 05:08 WBC RBC Hgb Hct MCV MCH MCHC RDW Plt Count Seg Neutrophils % Lymphocytes % Monocytes % Eosinophils % Basophils % Absolute Neutrophils Absolute Lymphocytes Absolute Monocytes Absolute Eosinophils Absolute Basophils Carbonic Acid 1.46 H HCO3/H2CO3 Ratio 16:1 ABG pH 7.31 L ABG pCO2 48.6 H ABG pO2 72.8 L ABG HCO3 24.1 ABG O2 Saturation 93.3 L ABG Base Excess -2.5 FiO2 60% Sodium 150.7 H Potassium 3.7 Chloride 115 H Carbon Dioxide 28 Anion Gap 8 BUN 6 L Creatinine 0.63 Est GFR ( Amer) > 60 Est GFR (Non-Af Amer) > 60 Glucose 97 Calcium 8.7 Phosphorus 5.4 H Magnesium 2.0 Total Bilirubin 0.5 AST 26 ALT 27 Alkaline Phosphatase 60 Total Protein 5.8 L Albumin 3.0 L Impressions: KUB X-Ray 05/24/16 00:00 IMPRESSION: Colonic distention. NG tube is in the stomach. Head CT 05/24/16 07:18 IMPRESSION: Motion artifact. Limited negative study Chest X-Ray 05/26/16 06:00 IMPRESSION: Slight increased left basilar airspace disease and small effusion. Assessment & Plan - Diagnosis (1) Acute hypoxemic respiratory failure Is this a current diagnosis for this admission?: YesPlan: Hypercapnia and hypoxemia improved continue current ventilatory mode (2) COPD (chronic obstructive pulmonary disease) Qualifiers: COPD type: unspecified COPD Qualified Code(s): J44.9 - Chronic obstructive pulmonary disease, unspecified Is this a current diagnosis for this admission?: YesPlan: Bronchodilator therapy as you have prescribed (3) Pneumonia Qualifiers: Pneumonia type: due to unspecified organism Lung location: lower lobe of lung Qualified Code(s): J18.9 - Pneumonia, unspecified organism Is this a current diagnosis for this admission?: YesPlan: T-max 99 5, WBC 9000 no left shift no positive cultures thus far chest radiograph comparable to radiograph 6 weeks ago. As per this observer - Time Critical Time spent with patient: 35 or more minutes
[2016-05-26 12:44] LABS: ARTERIAL BLOOD BASE EXCESS -0.6 mmol/L
--- NOTE | 2016-05-26 13:22 | PDOC PROGRESS REPORT ---
Subjective Progress Note for:: 05/26/16 Subjective:: He is still in ICU on mech. ventilation and FIO2 has been decreased to 40% and he seems to be stable on that.We appreciate the input of mergers and acquisitions associate, Dr Lebron in the mgt of this pt.He has developed low grade fever and no growth on blood culture so far . He has developed hypernatremia; we will switch IV fluids to D5 half saline at 100cc/hr.Meanwhile, Ct to monitor him closely at ICU. Physical Exam Vital Signs: Temp Pulse Resp BP Pulse Ox 100.6 F H 94 16 160/99 H 98 05/26/16 12:23 05/26/16 12:23 05/26/16 12:23 05/26/16 12:23 05/26/16 12:23 Intake & Output 05/25/16 05/26/16 05/27/16 06:59 06:59 06:59 Intake Total 1474 7582 0 Output Total 1060 2390 700 Balance 414 5192 -700 Weight 90.9 kg 95.7 kg General appearance: PRESENT: mild distress, well-developed, well-nourished Head exam: PRESENT: atraumatic, normocephalic Mouth exam: PRESENT: neck supple Respiratory exam: PRESENT: crackles, decreased breath sounds Cardiovascular exam: PRESENT: +S1, +S2 Pulses: PRESENT: +2 pedal pulses bilateral GI/Abdominal exam: PRESENT: normal bowel sounds, soft Rectal exam: PRESENT: deferred - He is intubated. Results Laboratory Results: 05/26/16 03:51 05/26/16 03:51 05/25/16 05/25/16 05/26/16 13:50 20:30 03:51 WBC 8.2 RBC 4.52 Hgb 12.2 L Hct 37.0 L MCV 82 MCH 27.0 MCHC 33.0 RDW 19.5 H Plt Count 187 Seg Neutrophils % 77.4 Lymphocytes % 15.0 Monocytes % 6.7 Eosinophils % 0.5 Basophils % 0.4 Absolute Neutrophils 6.3 Absolute Lymphocytes 1.2 Absolute Monocytes 0.6 Absolute Eosinophils 0.0 Absolute Basophils 0.0 Carbonic Acid 1.41 H 1.41 H HCO3/H2CO3 Ratio 16:1 18:1 ABG pH 7.33 L 7.35 ABG pCO2 46.8 H 47.0 H ABG pO2 69.8 L 69.7 L ABG HCO3 23.8 25.5 ABG O2 Saturation 92.7 L 93.2 L ABG Base Excess -2.4 -0.4 FiO2 60% 80% Sodium Potassium Chloride Carbon Dioxide Anion Gap BUN Creatinine Est GFR ( Amer) Est GFR (Non-Af Amer) Glucose Calcium Phosphorus Magnesium Total Bilirubin AST ALT Alkaline Phosphatase Total Protein Albumin 05/26/16 05/26/16 05/26/16 03:51 05:08 12:20 WBC RBC Hgb Hct MCV MCH MCHC RDW Plt Count Seg Neutrophils % Lymphocytes % Monocytes % Eosinophils % Basophils % Absolute Neutrophils Absolute Lymphocytes Absolute Monocytes Absolute Eosinophils Absolute Basophils Carbonic Acid 1.46 H 1.15 HCO3/H2CO3 Ratio 16:1 20:1 ABG pH 7.31 L 7.41 ABG pCO2 48.6 H 38.3 ABG pO2 72.8 L 68.6 L ABG HCO3 24.1 23.7 ABG O2 Saturation 93.3 L 94.0 ABG Base Excess -2.5 -0.6 FiO2 60% 35% Sodium 150.7 H Potassium 3.7 Chloride 115 H Carbon Dioxide 28 Anion Gap 8 BUN 6 L Creatinine 0.63 Est GFR ( Amer) > 60 Est GFR (Non-Af Amer) > 60 Glucose 97 Calcium 8.7 Phosphorus 5.4 H Magnesium 2.0 Total Bilirubin 0.5 AST 26 ALT 27 Alkaline Phosphatase 60 Total Protein 5.8 L Albumin 3.0 L Impressions: KUB X-Ray 05/24/16 00:00 IMPRESSION: Colonic distention. NG tube is in the stomach. Head CT 05/24/16 07:18 IMPRESSION: Motion artifact. Limited negative study Chest X-Ray 05/26/16 06:00 IMPRESSION: Slight increased left basilar airspace disease and small effusion. Assessment & Plan - Diagnosis (1) Sepsis Qualifiers: Sepsis type: sepsis due to unspecified organism Qualified Code(s): A41.9 - Sepsis, unspecified organism Is this a current diagnosis for this admission?: YesPlan: Switch IV fluids to D5 in half normal saline at 100 ml/hr due to hypernatremia ; Zozyn 2.25 g q6gh iV; Levaquin 750 mg qd IV; Tylenol 650 mg q4h prn suppository. F/u blood and sputum cultures. (2) Acute hypoxemic respiratory failure Is this a current diagnosis for this admission?: YesPlan: Ct with Mechanical ventilation at Tidal volume of 500; PEEP of 5; FIO2 of 35% and Resp. rate of 12. Ct with Propofol and Vessed IV as per protocol. F/u Cryptologic Technician Technical,Dr Lebron for Ventilatory mgt. (3) COPD (chronic obstructive pulmonary disease) Qualifiers: COPD type: unspecified COPD Qualified Code(s): J44.9 - Chronic obstructive pulmonary disease, unspecified Is this a current diagnosis for this admission?: YesPlan: Ct with Duonebs q4h prn. (4) Hypertension Is this a current diagnosis for this admission?: YesPlan: Ct with Toprol 50 mg qd Via NG tube; Enalapril 10 mg via NGT. Midodril 10 mg qd via NGT. (5) Hyperlipidemia Is this a current diagnosis for this admission?: YesPlan: Hold Atorvastatin 20 mg qhs and Tricor 145 mg qd for now. (6) GERD (gastroesophageal reflux disease) Is this a current diagnosis for this admission?: YesPlan: Ct with Protonix 40 mg qd IV. (7) Chronic back pain Is this a current diagnosis for this admission?: YesPlan: Ct with Oxycontin 60 mg Q*H via NGT; Oxycodone 15 mg q6h prn via NGT. Tylenol 650 mg q4h prn via NGT. Gabapentin 200 mg BID via NGT. Baclofen 10 mg TID via NGT. (8) DVT prophylaxis Is this a current diagnosis for this admission?: YesPlan: Ct with SCD. (9) Schizophrenia Is this a current diagnosis for this admission?: YesPlan: Ct with SHaloperidol 10 mg qpm via NGT; Seroquel 800 mg qhs via nGT; Benztropine 2mg BID via NGT. (10) Depression Is this a current diagnosis for this admission?: YesPlan: Ct with Seroquel 800 mg qhs via NGT. (11) Anxiety disorder Is this a current diagnosis for this admission?: YesPlan: Ct with Ativan 1mg TID prn via NGT.
[2016-05-26] MEDS: DEXTROSE 5%-1/2 NORMAL SALINE 1,000 ML IV PRN (13:38)
[2016-05-26] MEDS: HALOPERIDOL 5 MG TABLET NG SCH (18:28)
[2016-05-26] MEDS: QUETIAPINE FUMARATE 100 MG TABLET NG SCH (21:05)
[2016-05-27] MEDS: PIPERACILLIN SODIUM/TAZOBACTAM 2.25 GM in NORMAL SALINE 50 ML IV SCH ×4 (03:49→21:27)
[2016-05-27] MEDS: DEXTROSE 5%-1/2 NORMAL SALINE 1,000 ML IV PRN (03:49)
[2016-05-27] MEDS: PROPOFOL 100 ML IV PRN ×5 (03:50→23:14)
[2016-05-27 04:43] LABS: ABSOLUTE LYMPHOCYTES (AUTO) 1.7 10^3/uL (0.5-4.7); BASOPHILS % (AUTO) 0.4 % (0-2); EOSINOPHILS % (AUTO) 0.3 % (0-6); HEMATOCRIT 38.1 % (37.9-51.0); HEMOGLOBIN 12.7 g/dL (13.5-17.0); LYMPHOCYTES % (AUTO) 15.5 % (13-45); MEAN CORPUSCULAR HEMOGLOBIN 26.9 pg (27.0-33.4); MEAN CORPUSCULAR HGB CONC 33.3 g/dL (32.0-36.0); MEAN CORPUSCULAR VOLUME 81 fl (80-97); MONOCYTES % (AUTO) 9.5 % (3-13); RED BLOOD COUNT 4.71 10^6/uL (4.35-5.55); SEGMENTED NEUTROPHILS % (AUTO) 74.3 % (42-78); WHITE BLOOD COUNT 10.8 10^3/uL (4.0-10.5)
[2016-05-27 04:58] LABS: ALANINE AMINOTRANSFERASE 28 U/L (21-72); ALBUMIN 3.1 g/dL (3.5-5.0); ALKALINE PHOSPHATASE 66 U/L (38-126); ANION GAP 15 (5-19); ASPARTATE AMINO TRANSFERASE 10 U/L (17-59); BILIRUBIN,DIRECT 0.3 mg/dL (0.0-0.4); BILIRUBIN,TOTAL 0.7 mg/dL (0.2-1.3); BLOOD UREA NITROGEN 5 mg/dL (7-20); CARBON DIOXIDE 23 mmol/L (22-30); CHLORIDE 116 mmol/L (98-107); CREATININE RESULT 0.62 mg/dL (0.52-1.25); GLUCOSE 93 mg/dL (75-110); MAGNESIUM 1.8 mg/dL (1.6-2.3); POTASSIUM 3.5 mmol/L (3.6-5.0); SODIUM 153.5 mmol/L (137-145); TOTAL PROTEIN 5.5 g/dL (6.3-8.2); TRIGLYCERIDES 148 mg/dL (<150)
[2016-05-27 05:37] LABS: ARTERIAL BLOOD BASE EXCESS -0.4 mmol/L; ARTERIAL BLOOD O2 SATURATION 96.7 % (94-98)
[2016-05-27] MEDS: OXYCODONE HCL SR 10 MG TABLET PO SCH (05:38)
[2016-05-27] MEDS: ENOXAPARIN SODIUM INJ 40 MG/0.4 ML DISP.SYRIN SUBCUT SCH (08:07)
--- NOTE | 2016-05-27 09:01 | PDOC PROGRESS REPORT ---
Subjective Progress Note for:: 05/27/16 Subjective:: No reported bowel movement so far. Patient with elevated residual as reported. Sodium level was high. Potassium was low. Reported tachycardia a few days ago requiring Versed and Diprivan, eventual paralytic. Tachycardia has resolved. No reported temperature spikes. Has increase water flushes via NG. Physical Exam Vital Signs: Temp Pulse Resp BP Pulse Ox 98.6 F 84 15 94/69 L 100 05/27/16 08:20 05/27/16 07:19 05/27/16 08:20 05/27/16 08:20 05/27/16 08:20 Intake & Output 05/26/16 05/27/16 05/28/16 06:59 06:59 06:59 Intake Total 7582 3686 Output Total 2390 2745 300 Balance 5192 941 -300 Weight 95.7 kg General appearance: PRESENT: no acute distress, well-developed, other - Intubated and sedated Head exam: PRESENT: normocephalic Eye exam: PRESENT: conjunctiva pink Mouth exam: PRESENT: moist, neck supple Neck exam: ABSENT: JVD Respiratory exam: PRESENT: clear to auscultation wan. ABSENT: rhonchi, wheezes Cardiovascular exam: PRESENT: RRR. ABSENT: gallop GI/Abdominal exam: PRESENT: distended - Mildly, hypoactive bowel sounds, other - Tympany to percussion Extremities exam: ABSENT: pedal edema Neurological exam: PRESENT: other - Sedated, intubated, on paralytic Psychiatric exam: ABSENT: agitated Focused psych exam: ABSENT: restlessness Skin exam: PRESENT: dry, warm. ABSENT: cyanosis Results Laboratory Results: 05/27/16 04:30 05/27/16 04:30 05/26/16 05/27/16 05/27/16 12:20 04:30 04:30 WBC 10.8 H RBC 4.71 Hgb 12.7 L Hct 38.1 MCV 81 MCH 26.9 L MCHC 33.3 RDW 19.0 H Plt Count 173 Seg Neutrophils % 74.3 Lymphocytes % 15.5 Monocytes % 9.5 Eosinophils % 0.3 Basophils % 0.4 Absolute Neutrophils 8.0 Absolute Lymphocytes 1.7 Absolute Monocytes 1.0 Absolute Eosinophils 0.0 Absolute Basophils 0.0 Carbonic Acid 1.15 HCO3/H2CO3 Ratio 20:1 ABG pH 7.41 ABG pCO2 38.3 ABG pO2 68.6 L ABG HCO3 23.7 ABG O2 Saturation 94.0 ABG Base Excess -0.6 FiO2 35% Sodium 153.5 H Potassium 3.5 L Chloride 116 H Carbon Dioxide 23 Anion Gap 15 BUN 5 L Creatinine 0.62 Est GFR ( Amer) > 60 Est GFR (Non-Af Amer) > 60 Glucose 93 Calcium 9.0 Magnesium 1.8 Total Bilirubin 0.7 AST 10 L ALT 28 Alkaline Phosphatase 66 Total Protein 5.5 L Albumin 3.1 L Triglycerides 148 05/27/16 05:20 WBC RBC Hgb Hct MCV MCH MCHC RDW Plt Count Seg Neutrophils % Lymphocytes % Monocytes % Eosinophils % Basophils % Absolute Neutrophils Absolute Lymphocytes Absolute Monocytes Absolute Eosinophils Absolute Basophils Carbonic Acid 1.09 HCO3/H2CO3 Ratio 21:1 ABG pH 7.43 ABG pCO2 36.3 ABG pO2 84.8 ABG HCO3 23.6 ABG O2 Saturation 96.7 ABG Base Excess -0.4 FiO2 35% Sodium Potassium Chloride Carbon Dioxide Anion Gap BUN Creatinine Est GFR ( Amer) Est GFR (Non-Af Amer) Glucose Calcium Magnesium Total Bilirubin AST ALT Alkaline Phosphatase Total Protein Albumin Triglycerides Impressions: KUB X-Ray 05/24/16 00:00 IMPRESSION: Colonic distention. NG tube is in the stomach. Head CT 05/24/16 07:18 IMPRESSION: Motion artifact. Limited negative study Chest X-Ray 05/27/16 06:00 IMPRESSION: Mild improvement in left basilar airspace disease. No other interval change. Support lines and tubes remain in place. Assessment & Plan - Diagnosis (1) Acute hypoxemic respiratory failure Is this a current diagnosis for this admission?: Yes (2) Pneumonia Qualifiers: Pneumonia type: due to unspecified organism Lung location: lower lobe of lung Is this a current diagnosis for this admission?: Yes (3) COPD (chronic obstructive pulmonary disease) Qualifiers: COPD type: unspecified COPD Qualified Code(s): J44.9 - Chronic obstructive pulmonary disease, unspecified Is this a current diagnosis for this admission?: Yes (4) Sepsis Qualifiers: Sepsis type: sepsis due to unspecified organism Qualified Code(s): A41.9 - Sepsis, unspecified organism Is this a current diagnosis for this admission?: Yes (5) Adynamic ileus Is this a current diagnosis for this admission?: Yes (6) Hypernatremia Is this a current diagnosis for this admission?: Yes (7) Low TSH level Is this a current diagnosis for this admission?: Yes (8) Hyperlipidemia Qualifiers: Hyperlipidemia type: unspecified Qualified Code(s): E78.5 - Hyperlipidemia, unspecified Is this a current diagnosis for this admission?: Yes (9) Schizophrenia Qualifiers: Schizophrenia type: unspecified Qualified Code(s): F20.9 - Schizophrenia, unspecified Is this a current diagnosis for this admission?: Yes (10) Chronic back pain Qualifiers: Back pain location: back pain in unspecified location Back pain laterality: unspecified Qualified Code(s): M54.9 - Dorsalgia, unspecified ; G89.29 - Other chronic pain Is this a current diagnosis for this admission?: Yes (11) GERD (gastroesophageal reflux disease) Qualifiers: Esophagitis presence: without esophagitis Qualified Code(s): K21.9 - Gastro-esophageal reflux disease without esophagitis Is this a current diagnosis for this admission?: Yes (12) Hypertension Qualifiers: Hypertension type: essential hypertension Qualified Code(s): I10 - Essential (primary) hypertension Is this a current diagnosis for this admission?: Yes (13) Bipolar disorder Qualifiers: Active/Remission status: remission status unspecified Qualified Code (s): F31.9 - Bipolar disorder, unspecified Is this a current diagnosis for this admission?: Yes - Time Time Spent with patient: 25-34 minutes - Plan Summary Plan Summary: Continue antibiotics, follow cultures, repeat chest x-ray in the morning and check free t4. Replace electrolytes and monitor. We will change intravenous fluid to D5W. We will begin lactulose. I will change her metoprolol to regular instead of long-acting. We will DC OxyContin. Continue when necessary narcotics. Continue supportive care. Ventilatory weaning per pulmonary service.
[2016-05-27] MEDS: POTASSI CL 20 MEQ/50 ML RIDER 20 MEQ/50 ML RTUPB IV SCH ×2 (09:45→11:20)
[2016-05-27] MEDS: DEXTROSE 5%-WATER 1000 ML 1,000 ML IV PRN ×2 (09:45→21:28)
[2016-05-27] MEDS: LEVOFLOXACIN 750 MG/D5W RTU 750 MG/150 ML RTUPB IV SCH (09:45)
[2016-05-27] MEDS: PANTOPRAZOLE SODIUM 40 MG VIAL IV SCH (09:46)
[2016-05-27] MEDS: MIDODRINE HCL 5 MG TABLET NG SCH (09:46)
[2016-05-27] MEDS: LACTULOSE SYRUP 20 GM/30 ML UDCUP GT SCH ×7 (09:46→16:11)
[2016-05-27] MEDS: OXYCODONE HCL IR 5 MG TABLET NG PRN (09:47)
[2016-05-27] MEDS: ENALAPRIL MALEATE 10 MG TABLET NG SCH (09:48)
[2016-05-27] MEDS: BACLOFEN 10 MG TABLET NG SCH ×3 (09:48→17:23)
[2016-05-27] MEDS: BENZTROPINE MESYLATE 1 MG TABLET NG SCH ×2 (09:48→17:23)
[2016-05-27] MEDS: GABAPENTIN 100 MG CAPSULE NG SCH ×2 (09:49→21:29)
[2016-05-27] MEDS ORDERED: METOPROLOL TARTRATE 25 MG TABLET NG ONE (10:00)
[2016-05-27] MEDS: MIDAZOLAM HCL 100 ML IV PRN (14:09)
[2016-05-27] MEDS ORDERED: BISACODYL 10 MG SUPP.RECT PR ONE (17:00)
[2016-05-27] MEDS: METOPROLOL TARTRATE 25 MG TABLET NG SCH ×2 (17:23→23:15)
[2016-05-27] MEDS: HALOPERIDOL 5 MG TABLET NG SCH (17:23)
--- NOTE | 2016-05-27 17:28 | PDOC PROGRESS REPORT ---
Subjective Progress Note for:: 05/27/16 Subjective:: Intubated and sedated Physical Exam Vital Signs: Temp Pulse Resp BP Pulse Ox 98.8 F 100 15 100/77 96 05/27/16 06:36 05/26/16 20:00 05/27/16 06:36 05/27/16 06:36 05/27/16 06:36 Intake & Output 05/26/16 05/27/16 05/28/16 06:59 06:59 06:59 Intake Total 7521 3686 Output Total 1410 7095 Balance 5192 941 Weight 95.7 kg General appearance: PRESENT: no acute distress, well-developed, well-nourished Head exam: PRESENT: atraumatic, normocephalic Eye exam: PRESENT: conjunctiva pale, EOMI Mouth exam: PRESENT: dry mucosa, neck supple, other - ET tube Neck exam: ABSENT: carotid bruit, JVD, lymphadenopathy, thyromegaly Respiratory exam: PRESENT: decreased breath sounds, prolonged expiratory phas, rales, rhonchi, unlabored Cardiovascular exam: PRESENT: RRR, +S1, +S2 Pulses: PRESENT: normal radial pulses GI/Abdominal exam: PRESENT: normal bowel sounds, soft. ABSENT: distended, guarding, mass, organolmegaly, rebound, tenderness Rectal exam: PRESENT: deferred Gentrourinary exam: PRESENT: indwelling catheter Musculoskeletal exam: PRESENT: normal inspection Skin exam: PRESENT: dry, warm Results Laboratory Results: 05/27/16 04:30 05/27/16 04:30 05/26/16 05/27/16 05/27/16 12:20 04:30 04:30 WBC 10.8 H RBC 4.71 Hgb 12.7 L Hct 38.1 MCV 81 MCH 26.9 L MCHC 33.3 RDW 19.0 H Plt Count 173 Seg Neutrophils % 74.3 Lymphocytes % 15.5 Monocytes % 9.5 Eosinophils % 0.3 Basophils % 0.4 Absolute Neutrophils 8.0 Absolute Lymphocytes 1.7 Absolute Monocytes 1.0 Absolute Eosinophils 0.0 Absolute Basophils 0.0 Carbonic Acid 1.15 HCO3/H2CO3 Ratio 20:1 ABG pH 7.41 ABG pCO2 38.3 ABG pO2 68.6 L ABG HCO3 23.7 ABG O2 Saturation 94.0 ABG Base Excess -0.6 FiO2 35% Sodium 153.5 H Potassium 3.5 L Chloride 116 H Carbon Dioxide 23 Anion Gap 15 BUN 5 L Creatinine 0.62 Est GFR ( Amer) > 60 Est GFR (Non-Af Amer) > 60 Glucose 93 Calcium 9.0 Magnesium 1.8 Total Bilirubin 0.7 AST 10 L ALT 28 Alkaline Phosphatase 66 Total Protein 5.5 L Albumin 3.1 L Triglycerides 148 05/27/16 05:20 WBC RBC Hgb Hct MCV MCH MCHC RDW Plt Count Seg Neutrophils % Lymphocytes % Monocytes % Eosinophils % Basophils % Absolute Neutrophils Absolute Lymphocytes Absolute Monocytes Absolute Eosinophils Absolute Basophils Carbonic Acid 1.09 HCO3/H2CO3 Ratio 21:1 ABG pH 7.43 ABG pCO2 36.3 ABG pO2 84.8 ABG HCO3 23.6 ABG O2 Saturation 96.7 ABG Base Excess -0.4 FiO2 35% Sodium Potassium Chloride Carbon Dioxide Anion Gap BUN Creatinine Est GFR ( Amer) Est GFR (Non-Af Amer) Glucose Calcium Magnesium Total Bilirubin AST ALT Alkaline Phosphatase Total Protein Albumin Triglycerides Impressions: KUB X-Ray 05/24/16 00:00 IMPRESSION: Colonic distention. NG tube is in the stomach. Head CT 05/24/16 07:18 IMPRESSION: Motion artifact. Limited negative study Chest X-Ray 05/27/16 06:00 IMPRESSION: Mild improvement in left basilar airspace disease. No other interval change. Support lines and tubes remain in place. Assessment & Plan - Diagnosis (1) Acute hypoxemic respiratory failure Is this a current diagnosis for this admission?: YesPlan: improving (2) COPD (chronic obstructive pulmonary disease) Qualifiers: COPD type: unspecified COPD Qualified Code(s): J44.9 - Chronic obstructive pulmonary disease, unspecified Is this a current diagnosis for this admission?: YesPlan: Bronchodilator therapy as you have prescribed (3) Pneumonia Qualifiers: Pneumonia type: due to unspecified organism Lung location: lower lobe of lung Is this a current diagnosis for this admission?: YesPlan: T-max 99 5, WBC 9000 no left shift no positive cultures thus far chest radiograph comparable to radiograph 6 weeks ago. As per this observer - Time Critical Time spent with patient: 25-34 minutes
[2016-05-27] MEDS: QUETIAPINE FUMARATE 100 MG TABLET NG SCH (21:29)
[2016-05-28] MEDS: PROPOFOL 100 ML IV PRN ×6 (01:54→23:42)
[2016-05-28] MEDS: MIDAZOLAM HCL 100 ML IV PRN (01:54)
[2016-05-28 04:28] LABS: ABSOLUTE MONOCYTES (AUTO) 0.7 10^3/uL (0.1-1.4); ABSOLUTE NEUT (AUTO) 7.2 10^3/uL (1.7-8.2); BASOPHILS % (AUTO) 0.2 % (0-2); EOSINOPHILS % (AUTO) 0.4 % (0-6); HEMATOCRIT 37.6 % (37.9-51.0); HEMOGLOBIN 12.4 g/dL (13.5-17.0); HGB HCT DIFFERENCE -0.4; LYMPHOCYTES % (AUTO) 11.6 % (13-45); MEAN CORPUSCULAR HEMOGLOBIN 26.7 pg (27.0-33.4); MEAN CORPUSCULAR HGB CONC 33.1 g/dL (32.0-36.0); MEAN CORPUSCULAR VOLUME 81 fl (80-97); MONOCYTES % (AUTO) 8.2 % (3-13); RED BLOOD COUNT 4.66 10^6/uL (4.35-5.55); RED CELL DISTRIBUTION WIDTH 19.3 % (11.5-14.0); SEGMENTED NEUTROPHILS % (AUTO) 79.6 % (42-78); WHITE BLOOD COUNT 9.1 10^3/uL (4.0-10.5)
[2016-05-28] MEDS: PIPERACILLIN SODIUM/TAZOBACTAM 2.25 GM in NORMAL SALINE 50 ML IV SCH ×4 (04:32→20:06)
[2016-05-28 04:44] LABS: ANION GAP 13 (5-19); BLOOD UREA NITROGEN 4 mg/dL (7-20); CARBON DIOXIDE 22 mmol/L (22-30); CHLORIDE 117 mmol/L (98-107); CREATININE RESULT 0.53 mg/dL (0.52-1.25); GLUCOSE 117 mg/dL (75-110); MAGNESIUM 1.7 mg/dL (1.6-2.3); POTASSIUM 3.4 mmol/L (3.6-5.0)
[2016-05-28] MEDS: METOPROLOL TARTRATE 25 MG TABLET NG SCH (05:22)
[2016-05-28] MEDS: OXYCODONE HCL IR 5 MG TABLET NG PRN (05:25)
[2016-05-28 05:50] LABS: ARTERIAL BLOOD BASE EXCESS -0.5 mmol/L; ARTERIAL BLOOD O2 SATURATION 95.8 % (94-98)
[2016-05-28] MEDS ORDERED: POTASSIUM CHLORIDE 20 MEQ/15 ML UDCUP NG ONE (06:55)
[2016-05-28] MEDS ORDERED: BISACODYL 10 MG SUPP.RECT PR PRN (07:55)
--- NOTE | 2016-05-28 08:06 | PDOC PROGRESS REPORT ---
Subjective Progress Note for:: 05/28/16 Subjective:: Had good bowel movement last night as reported. Patient however still have abdominal distention. Intermittent suction applied to the nasogastric tube. Gastric contents about 100 mL noted in about 1 hour. No reported vomiting. No temperature spikes. No respiratory distress. Physical Exam Vital Signs: Temp Pulse Resp BP Pulse Ox 99.1 F 84 12 132/90 H 98 05/28/16 06:00 05/28/16 07:04 05/28/16 06:00 05/28/16 05:51 05/28/16 06:00 Intake & Output 05/27/16 05/28/16 05/29/16 06:59 06:59 06:59 Intake Total 3686 5082 Output Total 2745 0160 Balance 941 2572 Weight 98.4 kg General appearance: PRESENT: no acute distress, other - Sedated and intubated Head exam: PRESENT: normocephalic Eye exam: PRESENT: conjunctiva pink Mouth exam: PRESENT: moist, neck supple Neck exam: ABSENT: JVD Respiratory exam: PRESENT: clear to auscultation wan. ABSENT: rhonchi, wheezes Cardiovascular exam: PRESENT: RRR. ABSENT: gallop GI/Abdominal exam: PRESENT: distended, hypoactive bowel sounds, other - Tympanitic Extremities exam: ABSENT: pedal edema Psychiatric exam: ABSENT: agitated Focused psych exam: ABSENT: restlessness Skin exam: PRESENT: dry, warm. ABSENT: cyanosis Results Laboratory Results: 05/28/16 04:20 05/28/16 04:20 05/27/16 05/28/16 05/28/16 04:30 04:20 04:20 WBC 9.1 RBC 4.66 Hgb 12.4 L Hct 37.6 L MCV 81 MCH 26.7 L MCHC 33.1 RDW 19.3 H Plt Count 167 Seg Neutrophils % 79.6 H Lymphocytes % 11.6 L Monocytes % 8.2 Eosinophils % 0.4 Basophils % 0.2 Absolute Neutrophils 7.2 Absolute Lymphocytes 1.0 Absolute Monocytes 0.7 Absolute Eosinophils 0.0 Absolute Basophils 0.0 Carbonic Acid HCO3/H2CO3 Ratio ABG pH ABG pCO2 ABG pO2 ABG HCO3 ABG O2 Saturation ABG Base Excess FiO2 Sodium 152.0 H Potassium 3.4 L Chloride 117 H Carbon Dioxide 22 Anion Gap 13 BUN 4 L Creatinine 0.53 Est GFR ( Amer) > 60 Est GFR (Non-Af Amer) > 60 Glucose 117 H Calcium 9.0 Magnesium 1.7 Free T4 1.03 05/28/16 05:30 WBC RBC Hgb Hct MCV MCH MCHC RDW Plt Count Seg Neutrophils % Lymphocytes % Monocytes % Eosinophils % Basophils % Absolute Neutrophils Absolute Lymphocytes Absolute Monocytes Absolute Eosinophils Absolute Basophils Carbonic Acid 1.15 HCO3/H2CO3 Ratio 20:1 ABG pH 7.41 ABG pCO2 38.3 ABG pO2 78.8 L ABG HCO3 23.9 ABG O2 Saturation 95.8 ABG Base Excess -0.5 FiO2 25% Sodium Potassium Chloride Carbon Dioxide Anion Gap BUN Creatinine Est GFR ( Amer) Est GFR (Non-Af Amer) Glucose Calcium Magnesium Free T4 05/25/16 05:20 Tracheal Aspirate Gram Stain - Final 05/25/16 05:20 Tracheal Aspirate Sputum Culture - Final Yeast, Not Peace Albicans Normal Stephanie Impressions: Head CT 05/24/16 07:18 IMPRESSION: Motion artifact. Limited negative study Chest X-Ray 05/28/16 06:00 IMPRESSION: 1. Support tubes and lines as above. 2. The airspace opacities noted the left lung base have improved in comparison the prior study with minimal residual retrocardiac opacity could represent atelectasis or residual infiltrate. KUB X-Ray 05/28/16 06:00 IMPRESSION: There is significant gaseous distention of multiple loops of large and small bowel suggestive of ileus versus obstruction. Correlate clinically. Nasogastric tube is in place. Assessment & Plan - Diagnosis (1) Acute hypoxemic respiratory failure Is this a current diagnosis for this admission?: Yes (2) Pneumonia Qualifiers: Pneumonia type: due to unspecified organism Lung location: lower lobe of lung Is this a current diagnosis for this admission?: Yes (3) COPD (chronic obstructive pulmonary disease) Qualifiers: COPD type: unspecified COPD Qualified Code(s): J44.9 - Chronic obstructive pulmonary disease, unspecified Is this a current diagnosis for this admission?: Yes (4) Sepsis Qualifiers: Sepsis type: sepsis due to unspecified organism Qualified Code(s): A41.9 - Sepsis, unspecified organism Is this a current diagnosis for this admission?: Yes (5) Adynamic ileus Is this a current diagnosis for this admission?: Yes (6) Hypernatremia Is this a current diagnosis for this admission?: Yes (7) Low TSH level Is this a current diagnosis for this admission?: Yes (8) Hyperlipidemia Qualifiers: Hyperlipidemia type: unspecified Qualified Code(s): E78.5 - Hyperlipidemia, unspecified Is this a current diagnosis for this admission?: Yes (9) Schizophrenia Qualifiers: Schizophrenia type: unspecified Qualified Code(s): F20.9 - Schizophrenia, unspecified Is this a current diagnosis for this admission?: Yes (10) Chronic back pain Qualifiers: Back pain location: back pain in unspecified location Back pain laterality: unspecified Qualified Code(s): M54.9 - Dorsalgia, unspecified ; G89.29 - Other chronic pain Is this a current diagnosis for this admission?: Yes (11) GERD (gastroesophageal reflux disease) Qualifiers: Esophagitis presence: without esophagitis Qualified Code(s): K21.9 - Gastro-esophageal reflux disease without esophagitis Is this a current diagnosis for this admission?: Yes (12) Hypertension Qualifiers: Hypertension type: essential hypertension Qualified Code(s): I10 - Essential (primary) hypertension Is this a current diagnosis for this admission?: Yes (13) Bipolar disorder Qualifiers: Active/Remission status: remission status unspecified Qualified Code (s): F31.9 - Bipolar disorder, unspecified Is this a current diagnosis for this admission?: Yes - Time Time Spent with patient: 25-34 minutes - Plan Summary Plan Summary: I am going to hold the patient's sedatives and psychiatric meds for now. We will likewise hold muscle relaxants, oral narcotics. Change metoprolol to intravenous, give Dulcolax suppositories, replace electrolytes, increase D5W, monitor for reported withdrawal symptoms. Continue supportive care. Continue to hold tube feedings for now. Obtain labs, chest x-ray, KUB in the morning.
[2016-05-28] MEDS: POTASSI CL 20 MEQ/50 ML RIDER 50 ML IV SCH ×4 (08:24→14:55)
[2016-05-28] MEDS: ENOXAPARIN SODIUM INJ 40 MG/0.4 ML DISP.SYRIN SUBCUT SCH (08:24)
[2016-05-28] MEDS: DEXTROSE 5%-WATER 1000 ML 1,000 ML IV PRN ×2 (08:26→20:07)
[2016-05-28] MEDS: ENALAPRIL MALEATE 10 MG TABLET NG SCH (10:08)
[2016-05-28] MEDS: GABAPENTIN 100 MG CAPSULE NG SCH ×2 (10:08→22:37)
[2016-05-28] MEDS: PANTOPRAZOLE SODIUM 40 MG VIAL IV SCH (10:11)
[2016-05-28] MEDS: LEVOFLOXACIN 750 MG/D5W RTU 750 MG/150 ML RTUPB IV SCH (10:11)
[2016-05-28] MEDS: METOPROLOL TARTRATE PF/INJ 5 MG/5 ML SDV IV SCH ×3 (12:07→23:42)
[2016-05-28 15:07] LABS: ARTERIAL BLOOD BASE EXCESS -3.9 mmol/L; ARTERIAL BLOOD O2 SATURATION 98.3 % (94-98)
[2016-05-28 17:55] LABS: ARTERIAL BLOOD BASE EXCESS -1.5 mmol/L; ARTERIAL BLOOD O2 SATURATION 95.7 % (94-98)
[2016-05-29] MEDS: PIPERACILLIN SODIUM/TAZOBACTAM 2.25 GM in NORMAL SALINE 50 ML IV SCH ×4 (02:19→21:24)
[2016-05-29] MEDS: MORPHINE SULFATE 10 MG/ML INJ IV PRN ×2 (02:20→16:20)
[2016-05-29] MEDS: PROPOFOL 100 ML IV PRN ×8 (02:20→23:26)
[2016-05-29 04:23] LABS: HEMATOCRIT 33.6 % (37.9-51.0); HEMOGLOBIN 11.5 g/dL (13.5-17.0); HGB HCT DIFFERENCE 0.9; MEAN CORPUSCULAR HGB CONC 34.1 g/dL (32.0-36.0); MEAN CORPUSCULAR VOLUME 79 fl (80-97); RED BLOOD COUNT 4.25 10^6/uL (4.35-5.55); RED CELL DISTRIBUTION WIDTH 18.7 % (11.5-14.0); WHITE BLOOD COUNT 6.3 10^3/uL (4.0-10.5)
[2016-05-29 04:38] LABS: ANION GAP 12 (5-19); BLOOD UREA NITROGEN 4 mg/dL (7-20); CALCIUM 8.8 mg/dL (8.4-10.2); CARBON DIOXIDE 23 mmol/L (22-30); CHLORIDE 113 mmol/L (98-107); CREATININE RESULT 0.51 mg/dL (0.52-1.25); GLUCOSE 116 mg/dL (75-110); MAGNESIUM 1.7 mg/dL (1.6-2.3); PHOSPHORUS 4.7 mg/dL (2.5-4.5); POTASSIUM 3.3 mmol/L (3.6-5.0); SODIUM 148.2 mmol/L (137-145)
[2016-05-29] MEDS: DEXTROSE 5%-WATER 1000 ML 1,000 ML IV PRN ×2 (04:55→14:27)
[2016-05-29] MEDS: METOPROLOL TARTRATE PF/INJ 5 MG/5 ML SDV IV SCH ×3 (06:15→17:21)
[2016-05-29 06:39] LABS: ARTERIAL BLOOD BASE EXCESS 0.2 mmol/L; ARTERIAL BLOOD O2 SATURATION 96.9 % (94-98)
[2016-05-29] MEDS: ENOXAPARIN SODIUM INJ 40 MG/0.4 ML DISP.SYRIN SUBCUT SCH (07:54)
[2016-05-29] MEDS: PANTOPRAZOLE SODIUM 40 MG VIAL IV SCH (10:00)
[2016-05-29] MEDS: LEVOFLOXACIN 750 MG/D5W RTU 750 MG/150 ML RTUPB IV SCH (10:00)
[2016-05-29] MEDS: GABAPENTIN 100 MG CAPSULE NG SCH ×2 (10:00→21:25)
[2016-05-29] MEDS: ENALAPRIL MALEATE 10 MG TABLET NG SCH (10:00)
[2016-05-29] MEDS: POTASSIUM CHLORIDE 20 MEQ/50 ML RTU IV SCH ×3 (10:28→14:44)
--- NOTE | 2016-05-29 16:17 | PDOC PROGRESS REPORT ---
Subjective Progress Note for:: 05/29/16 Subjective:: He is still in ICU on mech. ventilation and FIO2 has been decreased to 40% and he is on on Propofol drip at 55mcg/kg/min.We appreciate the input of senior java web developer, Dr Lebron in the mgt of this pt. He has developed gaseous distension of colon due to ileus. His potasium is 3.3 and has received KCL 20 MEQ x3 doses.He had several bowel movement last night and only one small bowel movement today. Follow up surgical evaluation and for possible exturbation afterwards. Physical Exam Vital Signs: Temp Pulse Resp BP Pulse Ox 98.8 F 79 17 148/94 H 100 05/29/16 14:00 05/29/16 07:12 05/29/16 14:00 05/29/16 13:52 05/29/16 15:54 Intake & Output 05/28/16 05/29/16 05/30/16 06:59 06:59 06:59 Intake Total 5082 3589 Output Total 2510 2430 1335 Balance 2572 1159 -1335 Weight 98.4 kg 96.6 kg General appearance: PRESENT: well-developed, well-nourished Head exam: PRESENT: normocephalic Mouth exam: PRESENT: neck supple Respiratory exam: PRESENT: decreased breath sounds Cardiovascular exam: PRESENT: +S1, +S2 Pulses: PRESENT: +2 pedal pulses bilateral GI/Abdominal exam: PRESENT: diminished bowel sounds, distended, soft Rectal exam: PRESENT: deferred - On mech. ventilation Results Laboratory Results: 05/29/16 04:13 05/29/16 04:13 05/28/16 05/29/16 05/29/16 17:33 04:13 04:13 WBC 6.3 RBC 4.25 L Hgb 11.5 L Hct 33.6 L MCV 79 L MCH 27.0 MCHC 34.1 RDW 18.7 H Plt Count 168 Carbonic Acid 0.94 L HCO3/H2CO3 Ratio 23:1 ABG pH 7.46 H ABG pCO2 31.3 L ABG pO2 74.1 L ABG HCO3 21.7 ABG O2 Saturation 95.7 ABG Base Excess -1.5 FiO2 25% Sodium 148.2 H Potassium 3.3 L Chloride 113 H Carbon Dioxide 23 Anion Gap 12 BUN 4 L Creatinine 0.51 L Est GFR ( Amer) > 60 Est GFR (Non-Af Amer) > 60 Glucose 116 H Calcium 8.8 Phosphorus 4.7 H Magnesium 1.7 05/29/16 06:15 WBC RBC Hgb Hct MCV MCH MCHC RDW Plt Count Carbonic Acid 1.11 HCO3/H2CO3 Ratio 21:1 ABG pH 7.44 ABG pCO2 36.8 ABG pO2 86.3 ABG HCO3 24.2 ABG O2 Saturation 96.9 ABG Base Excess 0.2 FiO2 25% Sodium Potassium Chloride Carbon Dioxide Anion Gap BUN Creatinine Est GFR ( Amer) Est GFR (Non-Af Amer) Glucose Calcium Phosphorus Magnesium Impressions: Head CT 05/24/16 07:18 IMPRESSION: Motion artifact. 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 No high-grade obstruction. Chest X-Ray 05/29/16 06:00 IMPRESSION: Endotracheal and nasogastric tubes in good positioning. No focal infiltrates. KUB X-Ray 05/29/16 06:00 IMPRESSION: Gaseous distension of colon out of proportion to the remainder of the GI tract, question colonic ileus Assessment & Plan - Diagnosis (1) Acute hypoxemic respiratory failure Is this a current diagnosis for this admission?: YesPlan: Ct with Mechanical ventilation at Tidal volume of 500; PEEP of 0; FIO2 of 25% and Resp. rate of 12. Ct with Propofol as per protocol. F/u Flake Drier,Dr Lebron for Ventilatory mgt. (2) Sepsis Qualifiers: Sepsis type: sepsis due to unspecified organism Qualified Code(s): A41.9 - Sepsis, unspecified organism Is this a current diagnosis for this admission?: YesPlan: Switch IV fluids to D5 in water at 125 ml/hr due to hypernatremia; Zosyn 2.25 g q6gh IV; Levaquin 750 mg qd IV; Tylenol 650 mg q4h prn suppository. F/u blood and sputum cultures. (3) Adynamic ileus Is this a current diagnosis for this admission?: YesPlan: Ct with NPO and sunction prn; Hold Tube feeding and hod most of po meds for now. Replace potassium aggressively. F/u Gen. surgery consult. (4) COPD (chronic obstructive pulmonary disease) Qualifiers: COPD type: unspecified COPD Qualified Code(s): J44.9 - Chronic obstructive pulmonary disease, unspecified Is this a current diagnosis for this admission?: YesPlan: Ct with Duonebs q4h prn. (5) Hypertension Qualifiers: Hypertension type: essential hypertension Qualified Code(s): I10 - Essential (primary) hypertension Is this a current diagnosis for this admission?: YesPlan: Hold Toprol 50 mg qd Via NG tube; Hold Enalapril 10 mg via NGT. Hold Midodril 10 mg qd via NGT.Ct with Metoprolol 2.5 mg q6h IV. (6) Hyperlipidemia Qualifiers: Hyperlipidemia type: unspecified Qualified Code(s): E78.5 - Hyperlipidemia, unspecified Is this a current diagnosis for this admission?: YesPlan: Hold Atorvastatin 20 mg qhs and Tricor 145 mg qd for now. (7) GERD (gastroesophageal reflux disease) Qualifiers: Esophagitis presence: without esophagitis Qualified Code(s): K21.9 - Gastro-esophageal reflux disease without esophagitis Is this a current diagnosis for this admission?: YesPlan: Ct with Protonix 40 mg qd IV. (8) Chronic back pain Qualifiers: Back pain location: back pain in unspecified location Back pain laterality: unspecified Qualified Code(s): M54.9 - Dorsalgia, unspecified ; G89.29 - Other chronic pain Is this a current diagnosis for this admission?: YesPlan: Hold Oxycontin 60 mg Q6H via NGT;Hold Oxycodone 15 mg q6h prn via NGT. Tylenol 650 mg q4h prn via NGT. Gabapentin 200 mg BID via NGT. Hold Baclofen 10 mg TID via NGT. (9) DVT prophylaxis Is this a current diagnosis for this admission?: YesPlan: Ct with SCD. (10) Schizophrenia Qualifiers: Schizophrenia type: unspecified Qualified Code(s): F20.9 - Schizophrenia, unspecified Is this a current diagnosis for this admission?: YesPlan: Hold Haloperidol 10 mg qpm via NGT; Hold Seroquel 800 mg qhs via NGT; Hold Benztropine 2mg BID via NGT. (11) Depression Is this a current diagnosis for this admission?: YesPlan: Hold Seroquel 800 mg qhs via NGT. (12) Anxiety disorder Is this a current diagnosis for this admission?: YesPlan: Ct with Ativan 1mg TID prn via NGT.
[2016-05-29] MEDS ORDERED: NALOXONE HCL INJ/PF 0.4 MG/1 ML SDV ONE (18:59)
[2016-05-29] MEDS ORDERED: DIPHENHYDRAMINE HCL 50 MG/ML VIAL ONE (18:59)
[2016-05-29] MEDS ORDERED: ONDANSETRON HCL INJ/PF 4 MG/2 ML SDV ONE (18:59)
[2016-05-29] MEDS ORDERED: EPINEPHRINE INJ 1 MG/10 ML DISP.SYRIN ONE (19:01)
[2016-05-29 19:33] LABS: ANION GAP 8 (5-19); BLOOD UREA NITROGEN 6 mg/dL (7-20); CALCIUM 8.7 mg/dL (8.4-10.2); CARBON DIOXIDE 27 mmol/L (22-30); CHLORIDE 110 mmol/L (98-107); CREATININE RESULT 0.49 mg/dL (0.52-1.25); GLUCOSE 116 mg/dL (75-110); POTASSIUM 3.7 mmol/L (3.6-5.0); SODIUM 145.1 mmol/L (137-145)
--- NOTE | 2016-05-29 20:15 | Operative Report ---
Operative Report DATE OF SURGERY: 05/29/16 PREOPERATIVE DIAGNOSIS: 1. Colonic inertia. 2. Rule out mechanical colonic obstruction POSTOPERATIVE DIAGNOSIS: 1. Colonic inertia. 2. No evidence of mechanical obstruction up to the proximal descending colon OPERATION: Colonoscopy to proximal ascending colon with colonic washout SURGEON: OSVALDO THOMPSON ANESTHESIA: Moderate Sedation TISSUE REMOVED OR ALTERED: None COMPLICATIONS: None ESTIMATED BLOOD LOSS: none INTRAOPERATIVE FINDINGS: Colon full of stool; no obstruction PROCEDURE: Informed consent could not be obtained as the patient was sedated, and there was no durable healthcare power of supervisor warping department. Therefore this was deemed an appropriate intervention in the best interest of the patient as stated by Drs. Thompson and Fernandez. Patient was appropriately sedated, with propophal, left in the supine position in the intensive care while on the ventilator. Rectal exam revealed no anal rectal obstruction. The flexible adult colonoscope was advanced through to the anal rectal canal all the way to the proximal ascending colon. The colon was full of stool and gas. Copious amounts of irrigation were used to advance the scope all the way to the ascending colon. There was no evidence of mechanical obstruction or torsion. The cecum was not visualized. Scope was withdrawn decompressing his much of the colon as possible. Scope was withdrawn from the patient's anus. He tolerated the procedure well. Impression-colonic inertia; no evidence of mechanical obstruction to the proximal ascending colon Recommendations 1. Proceed with ventilator weaning and extubation as planned Correct electrolyte abnormalities 2. Call surgery if indicated in the future.
[2016-05-30] MEDS: METOPROLOL TARTRATE PF/INJ 5 MG/5 ML SDV IV SCH ×4 (00:32→17:21)
[2016-05-30] MEDS: DEXTROSE 5%-WATER 1000 ML 1,000 ML IV PRN ×3 (00:37→20:55)
[2016-05-30] MEDS: PROPOFOL 100 ML IV PRN ×3 (01:34→08:05)
[2016-05-30] MEDS: PIPERACILLIN SODIUM/TAZOBACTAM 2.25 GM in NORMAL SALINE 50 ML IV SCH ×4 (02:43→21:18)
[2016-05-30 03:52] LABS: ABSOLUTE EOSINOPHILS # (AUTO) 0.1 10^3/uL (0.0-0.6); ABSOLUTE LYMPHOCYTES (AUTO) 1.7 10^3/uL (0.5-4.7); ABSOLUTE MONOCYTES (AUTO) 0.6 10^3/uL (0.1-1.4); BASOPHILS % (AUTO) 0.9 % (0-2); EOSINOPHILS % (AUTO) 1.7 % (0-6); HEMATOCRIT 33.1 % (37.9-51.0); HEMOGLOBIN 11.1 g/dL (13.5-17.0); HGB HCT DIFFERENCE 0.2; LYMPHOCYTES % (AUTO) 39.1 % (13-45); MEAN CORPUSCULAR HEMOGLOBIN 26.9 pg (27.0-33.4); MEAN CORPUSCULAR HGB CONC 33.7 g/dL (32.0-36.0); MEAN CORPUSCULAR VOLUME 80 fl (80-97); MONOCYTES % (AUTO) 13.2 % (3-13); RED BLOOD COUNT 4.14 10^6/uL (4.35-5.55); SEGMENTED NEUTROPHILS % (AUTO) 45.1 % (42-78); WHITE BLOOD COUNT 4.4 10^3/uL (4.0-10.5)
[2016-05-30 04:07] LABS: ALANINE AMINOTRANSFERASE 28 U/L (21-72); ALKALINE PHOSPHATASE 53 U/L (38-126); ANION GAP 10 (5-19); ASPARTATE AMINO TRANSFERASE 18 U/L (17-59); BILIRUBIN,DIRECT 0.4 mg/dL (0.0-0.4); BILIRUBIN,TOTAL 0.6 mg/dL (0.2-1.3); BLOOD UREA NITROGEN 7 mg/dL (7-20); CALCIUM 8.8 mg/dL (8.4-10.2); CARBON DIOXIDE 27 mmol/L (22-30); CHLORIDE 110 mmol/L (98-107); CREATININE RESULT 0.51 mg/dL (0.52-1.25); GLUCOSE 107 mg/dL (75-110); MAGNESIUM 1.8 mg/dL (1.6-2.3); POTASSIUM 3.4 mmol/L (3.6-5.0); SODIUM 146.6 mmol/L (137-145); TOTAL PROTEIN 5.6 g/dL (6.3-8.2); TRIGLYCERIDES 157 mg/dL (<150)
[2016-05-30 05:37] LABS: ARTERIAL BLOOD BASE EXCESS 4.1 mmol/L; ARTERIAL BLOOD O2 SATURATION 98.9 % (94-98)
[2016-05-30] MEDS: ENOXAPARIN SODIUM INJ 40 MG/0.4 ML DISP.SYRIN SUBCUT SCH (08:05)
[2016-05-30] MEDS ORDERED: PHARMACY COMMUNICATION ORDER MC NR (08:45)
[2016-05-30] MEDS: ENALAPRIL MALEATE 10 MG TABLET NG SCH (09:08)
[2016-05-30] MEDS: GABAPENTIN 100 MG CAPSULE NG SCH ×2 (09:08→22:26)
[2016-05-30] MEDS: LEVOFLOXACIN 750 MG/D5W RTU 750 MG/150 ML RTUPB IV SCH (09:41)
[2016-05-30] MEDS: PANTOPRAZOLE SODIUM 40 MG VIAL IV SCH (09:41)
[2016-05-30] MEDS: IPRATROPIUM/ALBUTEROL 0.5-2.5 MG/3 ML AMPUL NEB PRN (09:51)
[2016-05-30] MEDS ORDERED: DEXAMETHASONE SOD PHOSPHATE INJ 4 MG/1 ML VIAL IV ONE (10:15)
[2016-05-30] MEDS: POTASSIUM CHLORIDE 20 MEQ/50 ML RTU IV SCH ×2 (14:02→16:16)
[2016-05-30] MEDS ORDERED: POLYETHYLENE GLYCOL 3350 POWDER 17 GM/1 PACKET PO PRN (14:39)
--- NOTE | 2016-05-30 14:39 | PDOC PROGRESS REPORT ---
Subjective Progress Note for:: 05/30/16 Subjective:: He had colonoscopy with colonic decompression by Dr Thompson yesterday and we appreciate his input in mgt of this pt. Pt was successfully extubated today.He is on oxygen by N/C .He is on soft restraint due to being a little bit aggressive. His potassium today is 3.4 and we willl give him KCL 20 MEQ IV x2 doses. We will get bedside swallowing evaluation and if he is fine, we will start his po meds. We will get dietitian consult for diet. He will still be monitored at ICU. Physical Exam Vital Signs: Temp Pulse Resp BP Pulse Ox 99.7 F 71 18 133/65 H 97 05/30/16 13:13 05/30/16 13:58 05/30/16 13:58 05/30/16 13:58 05/30/16 13:58 Intake & Output 05/29/16 05/30/16 05/31/16 06:59 06:59 06:59 Intake Total 3589 3515 Output Total 2430 5185 1635 Balance 1159 -1670 -1635 Weight 96.6 kg 96.6 kg General appearance: PRESENT: well-developed, well-nourished Head exam: PRESENT: atraumatic, normocephalic Eye exam: PRESENT: EOMI, PERRLA Mouth exam: PRESENT: moist, neck supple, tongue midline Neck exam: PRESENT: full ROM Respiratory exam: PRESENT: decreased breath sounds, symmetrical Cardiovascular exam: PRESENT: +S1, +S2 Pulses: PRESENT: +2 pedal pulses bilateral GI/Abdominal exam: PRESENT: normal bowel sounds, soft Rectal exam: PRESENT: deferred Neurological exam: PRESENT: alert, awake, oriented to person Psychiatric exam: PRESENT: anxious Results Laboratory Results: 05/30/16 03:45 05/30/16 03:45 05/29/16 05/30/16 05/30/16 19:09 03:45 03:45 WBC 4.4 RBC 4.14 L Hgb 11.1 L Hct 33.1 L MCV 80 MCH 26.9 L MCHC 33.7 RDW 18.0 H Plt Count 164 Seg Neutrophils % 45.1 Lymphocytes % 39.1 Monocytes % 13.2 H Eosinophils % 1.7 Basophils % 0.9 Absolute Neutrophils 2.0 Absolute Lymphocytes 1.7 Absolute Monocytes 0.6 Absolute Eosinophils 0.1 Absolute Basophils 0.0 Carbonic Acid HCO3/H2CO3 Ratio ABG pH ABG pCO2 ABG pO2 ABG HCO3 ABG O2 Saturation ABG Base Excess FiO2 Sodium 145.1 H 146.6 H Potassium 3.7 3.4 L Chloride 110 H 110 H Carbon Dioxide 27 27 Anion Gap 8 10 BUN 6 L 7 Creatinine 0.49 L 0.51 L Est GFR ( Amer) > 60 > 60 Est GFR (Non-Af Amer) > 60 > 60 Glucose 116 H 107 Calcium 8.7 8.8 Magnesium 1.8 Total Bilirubin 0.6 AST 18 ALT 28 Alkaline Phosphatase 53 Total Protein 5.6 L Albumin 3.0 L Triglycerides 157 H 05/30/16 05:10 WBC RBC Hgb Hct MCV MCH MCHC RDW Plt Count Seg Neutrophils % Lymphocytes % Monocytes % Eosinophils % Basophils % Absolute Neutrophils Absolute Lymphocytes Absolute Monocytes Absolute Eosinophils Absolute Basophils Carbonic Acid 1.04 L HCO3/H2CO3 Ratio 25:1 ABG pH 7.51 H ABG pCO2 34.4 L ABG pO2 134.9 H ABG HCO3 26.8 H ABG O2 Saturation 98.9 H ABG Base Excess 4.1 FiO2 30% Sodium Potassium Chloride Carbon Dioxide Anion Gap BUN Creatinine Est GFR ( Amer) Est GFR (Non-Af Amer) Glucose Calcium Magnesium Total Bilirubin AST ALT Alkaline Phosphatase Total Protein Albumin Triglycerides Impressions: Head CT 05/24/16 07:18 IMPRESSION: Motion artifact. 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 No high-grade obstruction. Chest X-Ray 05/30/16 06:00 IMPRESSION: Stable appearance. Endotracheal tube tip above the eva. KUB X-Ray 05/30/16 08:45 IMPRESSION: 2 tubes in the stomach, a nasogastric and orogastric tube. Decrease in gaseous distension of bowel loops compared to 05/29/2016 KUB Assessment & Plan - Diagnosis (1) Sepsis Qualifiers: Sepsis type: sepsis due to unspecified organism Qualified Code(s): A41.9 - Sepsis, unspecified organism Is this a current diagnosis for this admission?: YesPlan: Switch IV fluids to D5 in water at 125 ml/hr due to hypernatremia; Zosyn 2.25 g q6gh IV; Levaquin 750 mg qd IV; Tylenol 650 mg q4h prn suppository. F/u blood and sputum cultures. (2) Acute hypoxemic respiratory failure Is this a current diagnosis for this admission?: YesPlan: Ct with Oxygen by N/C at 2-3 L/min to keep saturation >92%. (3) Adynamic ileus Is this a current diagnosis for this admission?: YesPlan: Resolved; he is s.p colonoscopy with colonic decompression by Dr Thompson. We will correct hypokalemia with KCL IV replacement. We will get dietitian consult for dietary mgt. (4) COPD (chronic obstructive pulmonary disease) Qualifiers: COPD type: unspecified COPD Qualified Code(s): J44.9 - Chronic obstructive pulmonary disease, unspecified Is this a current diagnosis for this admission?: YesPlan: Ct with Duonebs q4h prn. (5) Hypertension Qualifiers: Hypertension type: essential hypertension Qualified Code(s): I10 - Essential (primary) hypertension Is this a current diagnosis for this admission?: YesPlan: Restart Toprol 50 mg qd po; Enalapril 10 mg qd po. Hold Midodril 10 mg qd for now..Ct with Metoprolol 2.5 mg q6h IV prn.2g sodium diet. (6) Hyperlipidemia Qualifiers: Hyperlipidemia type: unspecified Qualified Code(s): E78.5 - Hyperlipidemia, unspecified Is this a current diagnosis for this admission?: YesPlan: Restart Atorvastatin 20 mg qhs and Tricor 145 mg qd po. 200mg cholesterol diet. (7) GERD (gastroesophageal reflux disease) Qualifiers: Esophagitis presence: without esophagitis Qualified Code(s): K21.9 - Gastro-esophageal reflux disease without esophagitis Is this a current diagnosis for this admission?: YesPlan: Ct with Protonix 40 mg qd IV. (8) Chronic back pain Qualifiers: Back pain location: back pain in unspecified location Back pain laterality: unspecified Qualified Code(s): M54.9 - Dorsalgia, unspecified ; G89.29 - Other chronic pain Is this a current diagnosis for this admission?: YesPlan: Restart Oxycontin 60 mg Q6H po; Oxycodone 15 mg q6h prn po. Tylenol 650 mg q4h prn po. Gabapentin 200 mg BID po. Restart Baclofen 10 mg TID po. (9) DVT prophylaxis Is this a current diagnosis for this admission?: YesPlan: Ct with SCD. (10) Schizophrenia Qualifiers: Schizophrenia type: unspecified Qualified Code(s): F20.9 - Schizophrenia, unspecified Is this a current diagnosis for this admission?: YesPlan: Restart Haloperidol 10 mg qpm po; Seroquel 800 mg qhs po; Benztropine 2mg BID po. (11) Depression Is this a current diagnosis for this admission?: YesPlan: Restart Seroquel 800 mg qhs po. (12) Anxiety disorder Is this a current diagnosis for this admission?: YesPlan: Ct with Ativan 1mg TID prn po (13) Constipation Is this a current diagnosis for this admission?: YesPlan: Miralax 17 g BID prn po.
[2016-05-30] MEDS: NICOTINE 21 MG/24 HR PATCH.TD24 TD SCH (18:10)
[2016-05-30] MEDS: QUETIAPINE FUMARATE 100 MG TABLET NG SCH (22:26)
[2016-05-31] MEDS: METOPROLOL TARTRATE PF/INJ 5 MG/5 ML SDV IV SCH ×4 (02:18→18:03)
[2016-05-31] MEDS: PIPERACILLIN SODIUM/TAZOBACTAM 2.25 GM in NORMAL SALINE 50 ML IV SCH ×4 (02:18→21:00)
[2016-05-31 04:10] LABS: ABSOLUTE LYMPHOCYTES (AUTO) 1.5 10^3/uL (0.5-4.7); ABSOLUTE MONOCYTES (AUTO) 0.8 10^3/uL (0.1-1.4); ABSOLUTE NEUT (AUTO) 7.6 10^3/uL (1.7-8.2); BASOPHILS % (AUTO) 0.3 % (0-2); HEMATOCRIT 36.4 % (37.9-51.0); HGB HCT DIFFERENCE -0.4; LYMPHOCYTES % (AUTO) 14.8 % (13-45); MEAN CORPUSCULAR HEMOGLOBIN 26.5 pg (27.0-33.4); MEAN CORPUSCULAR HGB CONC 33.1 g/dL (32.0-36.0); MEAN CORPUSCULAR VOLUME 80 fl (80-97); MONOCYTES % (AUTO) 8.4 % (3-13); RED BLOOD COUNT 4.54 10^6/uL (4.35-5.55); RED CELL DISTRIBUTION WIDTH 18.1 % (11.5-14.0); SEGMENTED NEUTROPHILS % (AUTO) 76.5 % (42-78)
[2016-05-31 04:27] LABS: WHITE BLOOD COUNT 9.9 10^3/uL (4.0-10.5)
[2016-05-31 04:54] LABS: ANION GAP 12 (5-19); BLOOD UREA NITROGEN 7 mg/dL (7-20); CALCIUM 9.1 mg/dL (8.4-10.2); CARBON DIOXIDE 27 mmol/L (22-30); CHLORIDE 116 mmol/L (98-107); CREATININE RESULT 0.65 mg/dL (0.52-1.25); GLUCOSE 86 mg/dL (75-110); SODIUM 155.3 mmol/L (137-145)
[2016-05-31] MEDS: ENOXAPARIN SODIUM INJ 40 MG/0.4 ML DISP.SYRIN SUBCUT SCH (07:57)
[2016-05-31] MEDS: MIDODRINE HCL 5 MG TABLET NG SCH (09:48)
[2016-05-31] MEDS: ENALAPRIL MALEATE 10 MG TABLET NG SCH (09:52)
[2016-05-31] MEDS: LEVOFLOXACIN 750 MG/D5W RTU 750 MG/150 ML RTUPB IV SCH (09:52)
[2016-05-31] MEDS: BACLOFEN 10 MG TABLET NG SCH (09:53)
[2016-05-31] MEDS: GABAPENTIN 100 MG CAPSULE NG SCH (09:53)
[2016-05-31] MEDS: PANTOPRAZOLE SODIUM 40 MG VIAL IV SCH (09:53)
[2016-05-31] MEDS: BENZTROPINE MESYLATE 1 MG TABLET NG SCH (09:53)
[2016-05-31] MEDS: DEXTROSE 5%-WATER 1000 ML 1,000 ML IV PRN ×2 (09:54→20:59)
[2016-05-31] MEDS: POTASSIUM CHLORIDE 20 MEQ/15 ML UDCUP PO SCH ×2 (09:56→21:02)
[2016-05-31] MEDS: POTASSIUM CHLORIDE 20 MEQ/50 ML RTU IV SCH ×3 (10:30→14:55)
[2016-05-31] MEDS ORDERED: POTASSIUM CHLORIDE 20 MEQ/50 ML RTU IV ONE (10:45)
[2016-05-31] MEDS ORDERED: ZOLPIDEM TARTRATE 5 MG TABLET PO PRN (11:23)
[2016-05-31] MEDS ORDERED: LORAZEPAM 1 MG TABLET PO PRN (11:23)
--- NOTE | 2016-05-31 14:34 | PDOC PROGRESS REPORT ---
Subjective Progress Note for:: 05/31/16 Subjective:: 24 hours status post extubation doing well hypokalemic Physical Exam Vital Signs: Temp Pulse Resp BP Pulse Ox 100.4 F 72 29 H 129/80 H 94 05/31/16 06:00 05/30/16 19:00 05/31/16 06:00 05/31/16 05:52 05/31/16 06:00 Intake & Output 05/30/16 05/31/16 06/01/16 06:59 06:59 06:59 Intake Total 3512 2597 Output Total 5101 4550 Balance -0460 -098 Weight 96.6 kg 94 kg General appearance: PRESENT: no acute distress, disheveled, obese Head exam: PRESENT: atraumatic, normocephalic Eye exam: PRESENT: conjunctiva pale, EOMI Mouth exam: PRESENT: dry mucosa, neck supple Neck exam: ABSENT: carotid bruit, JVD, lymphadenopathy, thyromegaly Respiratory exam: PRESENT: decreased breath sounds, prolonged expiratory phas, rhonchi, symmetrical, unlabored Cardiovascular exam: PRESENT: RRR, +S1, +S2 Pulses: PRESENT: normal radial pulses GI/Abdominal exam: PRESENT: normal bowel sounds, soft. ABSENT: distended, guarding, mass, organolmegaly, rebound, tenderness Rectal exam: PRESENT: deferred Gentrourinary exam: PRESENT: indwelling catheter Musculoskeletal exam: PRESENT: normal inspection Neurological exam: PRESENT: awake Skin exam: PRESENT: dry, warm Results Laboratory Results: 05/31/16 04:00 05/31/16 04:00 05/31/16 05/31/16 04:00 04:00 WBC 9.9 D RBC 4.54 Hgb 12.0 L Hct 36.4 L MCV 80 MCH 26.5 L MCHC 33.1 RDW 18.1 H Plt Count 156 Seg Neutrophils % 76.5 Lymphocytes % 14.8 Monocytes % 8.4 Eosinophils % 0.0 Basophils % 0.3 Absolute Neutrophils 7.6 Absolute Lymphocytes 1.5 Absolute Monocytes 0.8 Absolute Eosinophils 0.0 Absolute Basophils 0.0 Sodium 155.3 H Potassium 3.0 L* Chloride 116 H Carbon Dioxide 27 Anion Gap 12 BUN 7 Creatinine 0.65 Est GFR ( Amer) > 60 Est GFR (Non-Af Amer) > 60 Glucose 86 Calcium 9.1 Impressions: Head CT 05/24/16 07:18 IMPRESSION: Motion artifact. 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 No high-grade obstruction. KUB X-Ray 05/30/16 08:45 IMPRESSION: 2 tubes in the stomach, a nasogastric and orogastric tube. Decrease in gaseous distension of bowel loops compared to 05/29/2016 KUB Chest X-Ray 05/31/16 06:00 IMPRESSION: 1. Interval removal of the endotracheal tube. Nasogastric tube remains in place. 2. Interval increase in airspace opacities comparison the prior study which could represent atelectasis, infiltrate, or edema. SUPPORT DEVICE(S) IN EXPECTED LOCATIONS. Assessment & Plan - Diagnosis (1) Acute hypoxemic respiratory failure Is this a current diagnosis for this admission?: YesPlan: 24 hours status post extubation stable (2) COPD (chronic obstructive pulmonary disease) Qualifiers: COPD type: unspecified COPD Qualified Code(s): J44.9 - Chronic obstructive pulmonary disease, unspecified Is this a current diagnosis for this admission?: Yes (3) Pneumonia Qualifiers: Pneumonia type: due to unspecified organism Lung location: lower lobe of lung Is this a current diagnosis for this admission?: Yes - Time Critical Time spent with patient: 35 or more minutes
[2016-05-31] MEDS: BACLOFEN 10 MG TABLET PO SCH ×2 (14:54→18:03)
--- NOTE | 2016-05-31 15:59 | PDOC PROGRESS REPORT ---
Subjective Progress Note for:: 05/31/16 Subjective:: He had colonoscopy with colonic decompression by Dr Thompson on 05/29/2016 and we appreciate his input in mgt of this pt. Pt was successfully extubated on .He is on oxygen by N/C .He is on soft restraint due to being a little bit aggressive. His potassium today is 3.0 and we willl give him KCL 20 MEQ IV x3 doses and put him on KCL 20 MEQ BID po(Liquid form). His bed side swallowing evaluation is fine and we will start all his po meds. We will get PT/OT consult. He will still be monitored at ICU. Physical Exam Vital Signs: Temp Pulse Resp BP Pulse Ox 100.4 F 82 19 134/74 H 96 05/31/16 14:19 05/31/16 09:44 05/31/16 14:19 05/31/16 13:52 05/31/16 14:19 Intake & Output 05/30/16 05/31/16 06/01/16 06:59 06:59 06:59 Intake Total 3515 2597 Output Total 5185 4550 325 Balance -1670 -1953 -325 Weight 96.6 kg 94 kg General appearance: PRESENT: well-developed, well-nourished Head exam: PRESENT: atraumatic, normocephalic Eye exam: PRESENT: EOMI, PERRLA Ear exam: PRESENT: TM's normal bilaterally Mouth exam: PRESENT: neck supple Respiratory exam: PRESENT: decreased breath sounds, symmetrical Cardiovascular exam: PRESENT: +S1, +S2 Pulses: PRESENT: +2 pedal pulses bilateral GI/Abdominal exam: PRESENT: normal bowel sounds, soft Rectal exam: PRESENT: deferred Neurological exam: PRESENT: alert, awake, oriented to person, oriented to place , oriented to time Psychiatric exam: PRESENT: normal mood Results Laboratory Results: 05/31/16 04:00 05/31/16 04:00 05/31/16 05/31/16 04:00 04:00 WBC 9.9 D RBC 4.54 Hgb 12.0 L Hct 36.4 L MCV 80 MCH 26.5 L MCHC 33.1 RDW 18.1 H Plt Count 156 Seg Neutrophils % 76.5 Lymphocytes % 14.8 Monocytes % 8.4 Eosinophils % 0.0 Basophils % 0.3 Absolute Neutrophils 7.6 Absolute Lymphocytes 1.5 Absolute Monocytes 0.8 Absolute Eosinophils 0.0 Absolute Basophils 0.0 Sodium 155.3 H Potassium 3.0 L* Chloride 116 H Carbon Dioxide 27 Anion Gap 12 BUN 7 Creatinine 0.65 Est GFR ( Amer) > 60 Est GFR (Non-Af Amer) > 60 Glucose 86 Calcium 9.1 Impressions: Head CT 05/24/16 07:18 IMPRESSION: Motion artifact. Limited negative study Abdomen/Pelvis CT 05/28/16 00:00 IMPRESSION: Partial colonic obstruction versus pseudo-obstruction [place]'s syndrome. No high-grade obstruction. KUB X-Ray 05/30/16 08:45 IMPRESSION: 2 tubes in the stomach, a nasogastric and orogastric tube. Decrease in gaseous distension of bowel loops compared to 05/29/2016 KUB Chest X-Ray 05/31/16 06:00 IMPRESSION: 1. Interval removal of the endotracheal tube. Nasogastric tube remains in place. 2. Interval increase in airspace opacities comparison the prior study which could represent atelectasis, infiltrate, or edema. SUPPORT DEVICE(S) IN EXPECTED LOCATIONS. Assessment & Plan - Diagnosis (1) Sepsis Qualifiers: Sepsis type: sepsis due to unspecified organism Qualified Code(s): A41.9 - Sepsis, unspecified organism Is this a current diagnosis for this admission?: YesPlan: Switch IV fluids to D5 in water at 125 ml/hr due to hypernatremia; Zosyn 2.25 g q6gh IV; Levaquin 750 mg qd IV; Tylenol 650 mg q4h prn po. F/u blood and sputum cultures. (2) Acute hypoxemic respiratory failure Is this a current diagnosis for this admission?: YesPlan: Ct with Oxygen by N/C at 2-3 L/min to keep saturation >92%. (3) Hypokalemia Is this a current diagnosis for this admission?: YesPlan: He was given KCL 20 MEQ IV x3 doses; we will put him on KCL 20 MEQ BID(Liquid form) po; monitor chemistry daily.His mg level is normal. (4) Adynamic ileus Is this a current diagnosis for this admission?: YesPlan: Resolved; he is s.p colonoscopy with colonic decompression by Dr Thompson. We will correct hypokalemia with KCL IV replacement. We will get dietitian consult for dietary mgt. (5) COPD (chronic obstructive pulmonary disease) Qualifiers: COPD type: unspecified COPD Qualified Code(s): J44.9 - Chronic obstructive pulmonary disease, unspecified Is this a current diagnosis for this admission?: YesPlan: Ct with Duonebs q4h prn. (6) Hypertension Qualifiers: Hypertension type: essential hypertension Qualified Code(s): I10 - Essential (primary) hypertension Is this a current diagnosis for this admission?: YesPlan: Restart Toprol 50 mg qd po; Enalapril 10 mg qd po. Hold Midodrine 10 mg qd for now..Ct with Metoprolol 2.5 mg q6h IV prn.2g sodium diet. (7) Hyperlipidemia Qualifiers: Hyperlipidemia type: unspecified Qualified Code(s): E78.5 - Hyperlipidemia, unspecified Is this a current diagnosis for this admission?: YesPlan: Restart Atorvastatin 20 mg qhs and Tricor 145 mg qd po. 200mg cholesterol diet. (8) GERD (gastroesophageal reflux disease) Qualifiers: Esophagitis presence: without esophagitis Qualified Code(s): K21.9 - Gastro-esophageal reflux disease without esophagitis Is this a current diagnosis for this admission?: YesPlan: Ct with Protonix 40 mg qd IV. (9) Chronic back pain Qualifiers: Back pain location: back pain in unspecified location Back pain laterality: unspecified Qualified Code(s): M54.9 - Dorsalgia, unspecified ; G89.29 - Other chronic pain Is this a current diagnosis for this admission?: YesPlan: Restart Oxycontin 60 mg Q6H po; Oxycodone 15 mg q6h prn po. Tylenol 650 mg q4h prn po. Gabapentin 200 mg BID po. Restart Baclofen 10 mg TID po. (10) DVT prophylaxis Is this a current diagnosis for this admission?: YesPlan: Ct with SCD. (11) Schizophrenia Qualifiers: Schizophrenia type: unspecified Qualified Code(s): F20.9 - Schizophrenia, unspecified Is this a current diagnosis for this admission?: YesPlan: Restart Haloperidol 10 mg qpm po; Seroquel 800 mg qhs po; Benztropine 2mg BID po. (12) Depression Is this a current diagnosis for this admission?: YesPlan: Restart Seroquel 800 mg qhs po. (13) Anxiety disorder Is this a current diagnosis for this admission?: YesPlan: Ct with Ativan 1mg TID prn po (14) Constipation Is this a current diagnosis for this admission?: YesPlan: Miralax 17 g BID prn po.
[2016-05-31] MEDS: HALOPERIDOL 5 MG TABLET PO SCH (18:02)
[2016-05-31] MEDS: BENZTROPINE MESYLATE 1 MG TABLET PO SCH (18:03)
[2016-05-31] MEDS: NICOTINE 21 MG/24 HR PATCH.TD24 TD SCH (18:03)
[2016-05-31] MEDS: QUETIAPINE FUMARATE 100 MG TABLET PO SCH (21:02)
[2016-05-31] MEDS: GABAPENTIN 100 MG CAPSULE PO SCH (21:02)
[2016-06-01] MEDS: METOPROLOL TARTRATE PF/INJ 5 MG/5 ML SDV IV SCH ×4 (00:51→17:54)
[2016-06-01] MEDS: PIPERACILLIN SODIUM/TAZOBACTAM 2.25 GM in NORMAL SALINE 50 ML IV SCH ×4 (02:34→20:03)
[2016-06-01] MEDS: DEXTROSE 5%-WATER 1000 ML 1,000 ML IV PRN ×2 (06:59→17:54)
[2016-06-01 09:16] LABS: ANION GAP 13 (5-19); BLOOD UREA NITROGEN 8 mg/dL (7-20); CARBON DIOXIDE 23 mmol/L (22-30); CHLORIDE 115 mmol/L (98-107); GLUCOSE 114 mg/dL (75-110); POTASSIUM 3.7 mmol/L (3.6-5.0); SODIUM 150.7 mmol/L (137-145)
[2016-06-01 09:30] LABS: ARTERIAL BLOOD BASE EXCESS -1.7 mmol/L; ARTERIAL BLOOD O2 SATURATION 86.8 % (94-98)
[2016-06-01] MEDS: BENZTROPINE MESYLATE 1 MG TABLET PO SCH ×2 (10:04→17:50)
[2016-06-01] MEDS: POTASSIUM CHLORIDE 20 MEQ/15 ML UDCUP PO SCH ×2 (10:05→22:59)
[2016-06-01] MEDS: MIDODRINE HCL 5 MG TABLET PO SCH (10:05)
[2016-06-01] MEDS: GABAPENTIN 100 MG CAPSULE PO SCH ×2 (10:05→23:00)
[2016-06-01] MEDS: LEVOFLOXACIN 750 MG/D5W RTU 750 MG/150 ML RTUPB IV SCH (10:07)
[2016-06-01] MEDS: PANTOPRAZOLE SODIUM 40 MG VIAL IV SCH (10:10)
[2016-06-01] MEDS: BACLOFEN 10 MG TABLET PO SCH ×3 (10:11→17:52)
[2016-06-01] MEDS: ENOXAPARIN SODIUM INJ 40 MG/0.4 ML DISP.SYRIN SUBCUT SCH (10:12)
[2016-06-01] MEDS: ENALAPRIL MALEATE 10 MG TABLET PO SCH (10:15)
[2016-06-01] MEDS: MORPHINE SULFATE 10 MG/ML INJ IV PRN (10:39)
--- NOTE | 2016-06-01 13:53 | PDOC PROGRESS REPORT ---
Subjective Progress Note for:: 06/01/16 Subjective:: He had colonoscopy with colonic decompression by Dr Thompson on 05/29/2016 and we appreciate his input in mgt of this pt. Pt was successfully extubated on .He is on oxygen by N/C .He is on soft restraint due to being a little bit aggressive. His potassium on 05/31/2016 was 3.0 and we will give him KCL 20 MEQ IV x3 doses and put him on KCL 20 MEQ BID po(Liquid form). His bed side swallowing evaluation is fine and we will start all his po meds. We will get PT /OT consult. He will step him down to [facility] level of care. Physical Exam Vital Signs: Temp Pulse Resp BP Pulse Ox 100.0 F 82 22 H 141/87 H 98 06/01/16 11:53 06/01/16 11:53 06/01/16 11:53 06/01/16 11:53 06/01/16 10:04 Intake & Output 05/31/16 06/01/16 06/02/16 06:59 06:59 06:59 Intake Total 2597 3381 Output Total 4550 2425 1050 Balance -1953 956 -1050 Weight 94 kg 97.3 kg General appearance: PRESENT: no acute distress, well-developed, well-nourished Head exam: PRESENT: atraumatic, normocephalic Eye exam: PRESENT: EOMI, PERRLA Mouth exam: PRESENT: moist, neck supple Respiratory exam: PRESENT: decreased breath sounds, symmetrical Cardiovascular exam: PRESENT: +S2 Pulses: PRESENT: +2 pedal pulses bilateral GI/Abdominal exam: PRESENT: normal bowel sounds, soft Rectal exam: PRESENT: deferred Neurological exam: PRESENT: alert, awake, oriented to person, oriented to place , oriented to time Psychiatric exam: PRESENT: anxious Focused psych exam: PRESENT: delusional Results Laboratory Results: 05/31/16 04:00 06/01/16 08:50 06/01/16 06/01/16 08:50 09:24 Carbonic Acid 0.77 L HCO3/H2CO3 Ratio 25:1 ABG pH 7.51 H ABG pCO2 25.6 L ABG pO2 45.7 L ABG HCO3 20.0 ABG O2 Saturation 86.8 L ABG Base Excess -1.7 FiO2 ROOM AIR Sodium 150.7 H Potassium 3.7 Chloride 115 H Carbon Dioxide 23 Anion Gap 13 BUN 8 Creatinine 0.60 Est GFR ( Amer) > 60 Est GFR (Non-Af Amer) > 60 Glucose 114 H Calcium 9.0 05/26/16 20:47 Blood Blood Culture - Final NO GROWTH IN 5 DAYS 05/26/16 19:55 Blood Blood Culture - Final NO GROWTH IN 5 DAYS Impressions: Head CT 05/24/16 07:18 IMPRESSION: Motion artifact. 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 No high-grade obstruction. KUB X-Ray 05/30/16 08:45 IMPRESSION: 2 tubes in the stomach, a nasogastric and orogastric tube. Decrease in gaseous distension of bowel loops compared to 05/29/2016 KUB Chest X-Ray 06/01/16 07:48 IMPRESSION: Airspace disease seen at both lung bases has cleared. Assessment & Plan - Diagnosis (1) Sepsis Qualifiers: Sepsis type: sepsis due to unspecified organism Qualified Code(s): A41.9 - Sepsis, unspecified organism Is this a current diagnosis for this admission?: YesPlan: Switch IV fluids to D5 in water at 125 ml/hr due to hypernatremia; Zosyn 2.25 g q6gh IV; Levaquin 750 mg qd IV; Tylenol 650 mg q4h prn po. F/u blood and sputum cultures. (2) Acute hypoxemic respiratory failure Is this a current diagnosis for this admission?: YesPlan: Ct with Oxygen by N/C at 2-3 L/min to keep saturation >92%. (3) Hypokalemia Is this a current diagnosis for this admission?: YesPlan: He was given KCL 20 MEQ IV x3 doses; we will put him on KCL 20 MEQ BID(Liquid form) po; monitor chemistry daily.His mg level is normal. (4) Adynamic ileus Is this a current diagnosis for this admission?: YesPlan: Resolved; he is s.p colonoscopy with colonic decompression by Dr Thompson. We will correct hypokalemia with KCL IV replacement. We will get dietitian consult for dietary mgt. (5) COPD (chronic obstructive pulmonary disease) Qualifiers: COPD type: unspecified COPD Qualified Code(s): J44.9 - Chronic obstructive pulmonary disease, unspecified Is this a current diagnosis for this admission?: YesPlan: Ct with Duonebs q4h prn. (6) Hypertension Qualifiers: Hypertension type: essential hypertension Qualified Code(s): I10 - Essential (primary) hypertension Is this a current diagnosis for this admission?: YesPlan: Restart Toprol 50 mg qd po; Enalapril 10 mg qd po. Hold Midodrine 10 mg qd for now..Ct with Metoprolol 2.5 mg q6h IV prn.2g sodium diet. (7) Hyperlipidemia Qualifiers: Hyperlipidemia type: unspecified Qualified Code(s): E78.5 - Hyperlipidemia, unspecified Is this a current diagnosis for this admission?: YesPlan: Restart Atorvastatin 20 mg qhs and Tricor 145 mg qd po. 200mg cholesterol diet. (8) GERD (gastroesophageal reflux disease) Qualifiers: Esophagitis presence: without esophagitis Qualified Code(s): K21.9 - Gastro-esophageal reflux disease without esophagitis Is this a current diagnosis for this admission?: YesPlan: Ct with Protonix 40 mg qd IV. (9) Chronic back pain Qualifiers: Back pain location: back pain in unspecified location Back pain laterality: unspecified Qualified Code(s): M54.9 - Dorsalgia, unspecified ; G89.29 - Other chronic pain Is this a current diagnosis for this admission?: YesPlan: Restart Oxycontin 60 mg Q6H po; Oxycodone 15 mg q6h prn po. Tylenol 650 mg q4h prn po. Gabapentin 200 mg BID po. Restart Baclofen 10 mg TID po. (10) DVT prophylaxis Is this a current diagnosis for this admission?: YesPlan: Ct with SCD. (11) Schizophrenia Qualifiers: Schizophrenia type: unspecified Qualified Code(s): F20.9 - Schizophrenia, unspecified Is this a current diagnosis for this admission?: YesPlan: Restart Haloperidol 10 mg qpm po; Seroquel 800 mg qhs po; Benztropine 2mg BID po. (12) Depression Is this a current diagnosis for this admission?: YesPlan: Restart Seroquel 800 mg qhs po. (13) Anxiety disorder Is this a current diagnosis for this admission?: YesPlan: Ct with Ativan 1mg TID prn po (14) Constipation Is this a current diagnosis for this admission?: YesPlan: Miralax 17 g BID prn po.
[2016-06-01 14:00] LABS: ABSOLUTE BASOPHILS # (AUTO) 0.1 10^3/uL (0.0-0.2); ABSOLUTE LYMPHOCYTES (AUTO) 1.6 10^3/uL (0.5-4.7); ABSOLUTE MONOCYTES (AUTO) 0.9 10^3/uL (0.1-1.4); ABSOLUTE NEUT (AUTO) 8.6 10^3/uL (1.7-8.2); BASOPHILS % (AUTO) 0.8 % (0-2); EOSINOPHILS % (AUTO) 0.3 % (0-6); HEMATOCRIT 35.6 % (37.9-51.0); HEMOGLOBIN 11.7 g/dL (13.5-17.0); HGB HCT DIFFERENCE -0.5; LYMPHOCYTES % (AUTO) 14.2 % (13-45); MEAN CORPUSCULAR HEMOGLOBIN 26.3 pg (27.0-33.4); MEAN CORPUSCULAR HGB CONC 32.9 g/dL (32.0-36.0); MEAN CORPUSCULAR VOLUME 80 fl (80-97); MONOCYTES % (AUTO) 7.9 % (3-13); RED BLOOD COUNT 4.45 10^6/uL (4.35-5.55); SEGMENTED NEUTROPHILS % (AUTO) 76.8 % (42-78); WHITE BLOOD COUNT 11.1 10^3/uL (4.0-10.5)
[2016-06-01] MEDS: NICOTINE 21 MG/24 HR PATCH.TD24 TD SCH (17:51)
[2016-06-01] MEDS: HALOPERIDOL 5 MG TABLET PO SCH (17:51)
[2016-06-01] MEDS: QUETIAPINE FUMARATE 100 MG TABLET PO SCH (22:59)
[2016-06-02] MEDS: PIPERACILLIN SODIUM/TAZOBACTAM 2.25 GM in NORMAL SALINE 50 ML IV SCH ×4 (02:39→20:22)
[2016-06-02 05:53] LABS: ANION GAP 12 (5-19); BLOOD UREA NITROGEN 7 mg/dL (7-20); CALCIUM 8.7 mg/dL (8.4-10.2); CARBON DIOXIDE 23 mmol/L (22-30); CHLORIDE 113 mmol/L (98-107); CREATININE RESULT 0.69 mg/dL (0.52-1.25); GLUCOSE 97 mg/dL (75-110); POTASSIUM 3.4 mmol/L (3.6-5.0); SODIUM 147.8 mmol/L (137-145)
[2016-06-02] MEDS: DEXTROSE 5%-WATER 1000 ML 1,000 ML IV PRN ×2 (06:36→17:05)
[2016-06-02] MEDS: ENOXAPARIN SODIUM INJ 40 MG/0.4 ML DISP.SYRIN SUBCUT SCH (08:05)
[2016-06-02] MEDS: PANTOPRAZOLE SODIUM 40 MG VIAL IV SCH (09:18)
[2016-06-02] MEDS: LEVOFLOXACIN 750 MG/D5W RTU 750 MG/150 ML RTUPB IV SCH (09:18)
[2016-06-02] MEDS: GABAPENTIN 100 MG CAPSULE PO SCH ×2 (09:19→21:24)
[2016-06-02] MEDS: POTASSIUM CHLORIDE 20 MEQ/15 ML UDCUP PO SCH ×2 (09:19→21:29)
[2016-06-02] MEDS: ENALAPRIL MALEATE 10 MG TABLET PO SCH (09:20)
[2016-06-02] MEDS: BENZTROPINE MESYLATE 1 MG TABLET PO SCH ×2 (09:20→17:03)
[2016-06-02] MEDS: BACLOFEN 10 MG TABLET PO SCH ×3 (09:20→17:03)
[2016-06-02] MEDS: MIDODRINE HCL 5 MG TABLET PO SCH (09:20)
[2016-06-02] MEDS: MORPHINE SULFATE 10 MG/ML INJ IV PRN (12:22)
[2016-06-02] MEDS ORDERED: POTASSI CL 20 MEQ/50 ML RIDER 50 ML IV ONE (12:48)
--- NOTE | 2016-06-02 12:56 | PDOC PROGRESS REPORT ---
Subjective Progress Note for:: 06/02/16 Subjective:: He had colonoscopy with colonic decompression by Dr Thompson on 05/29/2016 and we appreciate his input in mgt of this pt. Pt was successfully extubated on .He is on oxygen by N/C .He is on soft restraint due to being a little bit aggressive. His potassium on 05/31/2016 was 3.0 and we will give him KCL 20 MEQ IV x3 doses and put him on KCL 20 MEQ BID po(Liquid form). His bed side swallowing evaluation is fine and we will start all his po meds. We will get PT /OT consult. He will step him down to [facility] level of care. His potassium on 06/02 was 3.4; we will give KCL 20 MEQ IVx1.Ct with PT/OT since still has deconditioning after being on mech. ventilation. Physical Exam Vital Signs: Temp Pulse Resp BP Pulse Ox 98.1 F 71 16 132/59 H 93 06/02/16 11:11 06/02/16 11:11 06/02/16 11:11 06/02/16 11:11 06/02/16 11:11 Intake & Output 06/01/16 06/02/16 06/03/16 06:59 06:59 06:59 Intake Total 3381 2668 355 Output Total 1923 3660 1000 Balance 956 -622 -645 Weight 97.3 kg 96.4 kg General appearance: PRESENT: no acute distress, well-developed, well-nourished Head exam: PRESENT: atraumatic, normocephalic Eye exam: PRESENT: EOMI, PERRLA Ear exam: PRESENT: TM's normal bilaterally Mouth exam: PRESENT: moist, neck supple, tongue midline Respiratory exam: PRESENT: decreased breath sounds, symmetrical Cardiovascular exam: PRESENT: +S1, +S2 Pulses: PRESENT: +2 pedal pulses bilateral GI/Abdominal exam: PRESENT: normal bowel sounds, soft Rectal exam: PRESENT: deferred Neurological exam: PRESENT: alert, awake, oriented to person, oriented to place , oriented to time Psychiatric exam: PRESENT: anxious Results Laboratory Results: 06/01/16 13:39 06/02/16 05:04 06/01/16 06/02/16 13:39 05:04 WBC 11.1 H RBC 4.45 Hgb 11.7 L Hct 35.6 L MCV 80 MCH 26.3 L MCHC 32.9 RDW 18.0 H Plt Count 206 Seg Neutrophils % 76.8 Lymphocytes % 14.2 Monocytes % 7.9 Eosinophils % 0.3 Basophils % 0.8 Absolute Neutrophils 8.6 H Absolute Lymphocytes 1.6 Absolute Monocytes 0.9 Absolute Eosinophils 0.0 Absolute Basophils 0.1 Sodium 147.8 H Potassium 3.4 L Chloride 113 H Carbon Dioxide 23 Anion Gap 12 BUN 7 Creatinine 0.69 Est GFR ( Amer) > 60 Est GFR (Non-Af Amer) > 60 Glucose 97 Calcium 8.7 Impressions: Head CT 05/24/16 07:18 IMPRESSION: Motion artifact. 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 No high-grade obstruction. KUB X-Ray 05/30/16 08:45 IMPRESSION: 2 tubes in the stomach, a nasogastric and orogastric tube. Decrease in gaseous distension of bowel loops compared to 05/29/2016 KUB Chest X-Ray 06/01/16 07:48 IMPRESSION: Airspace disease seen at both lung bases has cleared. Assessment & Plan - Diagnosis (1) Sepsis Qualifiers: Sepsis type: sepsis due to unspecified organism Qualified Code(s): A41.9 - Sepsis, unspecified organism Is this a current diagnosis for this admission?: YesPlan: Switch IV fluids to D5 in water at 125 ml/hr due to hypernatremia; Zosyn 2.25 g q6gh IV; Levaquin 750 mg qd IV; Tylenol 650 mg q4h prn po. F/u blood and sputum cultures. (2) Pneumonia Qualifiers: Pneumonia type: due to unspecified organism Lung location: lower lobe of lung Is this a current diagnosis for this admission?: YesPlan: Ct with IV Zosyn 2.25 g Q6H IV and Rocephin 750 mg qd IV. (3) Acute hypoxemic respiratory failure Is this a current diagnosis for this admission?: YesPlan: Ct with Oxygen by N/C at 2-3 L/min to keep saturation >92%. (4) Hypokalemia Is this a current diagnosis for this admission?: YesPlan: He was given KCL 20 MEQ IV x3 doses; we will put him on KCL 20 MEQ BID(Liquid form) po; monitor chemistry daily.His mg level is normal. (5) Adynamic ileus Is this a current diagnosis for this admission?: Yes (6) COPD (chronic obstructive pulmonary disease) Qualifiers: COPD type: unspecified COPD Qualified Code(s): J44.9 - Chronic obstructive pulmonary disease, unspecified Is this a current diagnosis for this admission?: YesPlan: Ct with Duonebs q4h prn. (7) Hypertension Qualifiers: Hypertension type: essential hypertension Qualified Code(s): I10 - Essential (primary) hypertension Is this a current diagnosis for this admission?: YesPlan: Restart Toprol 50 mg qd po; Enalapril 10 mg qd po. Hold Midodrine 10 mg qd for now..Ct with Metoprolol 2.5 mg q6h IV prn.2g sodium diet. (8) Hyperlipidemia Qualifiers: Hyperlipidemia type: unspecified Qualified Code(s): E78.5 - Hyperlipidemia, unspecified Is this a current diagnosis for this admission?: YesPlan: Restart Atorvastatin 20 mg qhs and Tricor 145 mg qd po. 200mg cholesterol diet. (9) GERD (gastroesophageal reflux disease) Qualifiers: Esophagitis presence: without esophagitis Qualified Code(s): K21.9 - Gastro-esophageal reflux disease without esophagitis Is this a current diagnosis for this admission?: YesPlan: Ct with Protonix 40 mg qd IV. (10) Chronic back pain Qualifiers: Back pain location: back pain in unspecified location Back pain laterality: unspecified Qualified Code(s): M54.9 - Dorsalgia, unspecified ; G89.29 - Other chronic pain Is this a current diagnosis for this admission?: YesPlan: Restart Oxycontin 60 mg Q6H po; Oxycodone 15 mg q6h prn po. Tylenol 650 mg q4h prn po. Gabapentin 200 mg BID po. Restart Baclofen 10 mg TID po. (11) DVT prophylaxis Is this a current diagnosis for this admission?: YesPlan: Ct with SCD. (12) Schizophrenia Qualifiers: Schizophrenia type: unspecified Qualified Code(s): F20.9 - Schizophrenia, unspecified Is this a current diagnosis for this admission?: YesPlan: Restart Haloperidol 10 mg qpm po; Seroquel 800 mg qhs po; Benztropine 2mg BID po. (13) Depression Is this a current diagnosis for this admission?: YesPlan: Restart Seroquel 800 mg qhs po. (14) Anxiety disorder Is this a current diagnosis for this admission?: YesPlan: Ct with Ativan 1mg TID prn po (15) Constipation Is this a current diagnosis for this admission?: YesPlan: Miralax 17 g BID prn po.
[2016-06-02] MEDS: NICOTINE 21 MG/24 HR PATCH.TD24 TD SCH (17:03)
[2016-06-02] MEDS: HALOPERIDOL 5 MG TABLET PO SCH (17:03)
[2016-06-02] MEDS: OXYCODONE HCL IR 5 MG TABLET PO PRN (20:23)
[2016-06-02] MEDS: QUETIAPINE FUMARATE 100 MG TABLET PO SCH (21:25)
[2016-06-03] MEDS: PIPERACILLIN SODIUM/TAZOBACTAM 2.25 GM in NORMAL SALINE 50 ML IV SCH ×4 (02:08→21:53)
[2016-06-03] MEDS: DEXTROSE 5%-WATER 1000 ML 1,000 ML IV PRN ×2 (03:23→13:02)
[2016-06-03] MEDS: OXYCODONE HCL IR 5 MG TABLET PO PRN ×3 (04:21→22:23)
[2016-06-03] MEDS: ENOXAPARIN SODIUM INJ 40 MG/0.4 ML DISP.SYRIN SUBCUT SCH (07:39)
[2016-06-03] MEDS: LEVOFLOXACIN 750 MG/D5W RTU 750 MG/150 ML RTUPB IV SCH (09:07)
[2016-06-03] MEDS: PANTOPRAZOLE SODIUM 40 MG VIAL IV SCH (09:08)
[2016-06-03] MEDS: BACLOFEN 10 MG TABLET PO SCH ×3 (09:08→17:00)
[2016-06-03] MEDS: MIDODRINE HCL 5 MG TABLET PO SCH (09:08)
[2016-06-03] MEDS: POTASSIUM CHLORIDE 20 MEQ/15 ML UDCUP PO SCH ×2 (09:08→22:31)
[2016-06-03] MEDS: ENALAPRIL MALEATE 10 MG TABLET PO SCH (09:09)
[2016-06-03] MEDS: BENZTROPINE MESYLATE 1 MG TABLET PO SCH ×2 (09:09→17:00)
[2016-06-03] MEDS: GABAPENTIN 100 MG CAPSULE PO SCH ×2 (09:09→22:22)
--- NOTE | 2016-06-03 11:15 | PDOC PROGRESS REPORT ---
Subjective Progress Note for:: 06/03/16 Subjective:: Complaints of pain in his right hand. Reports he had a fall prior to hospitalization. Physical Exam Vital Signs: Temp Pulse Resp BP Pulse Ox 98.8 F 78 19 138/78 H 91 L 06/03/16 08:12 06/03/16 08:53 06/03/16 08:12 06/03/16 08:12 06/03/16 08:12 Intake & Output 06/02/16 06/03/16 06/04/16 06:59 06:59 06:59 Intake Total 2668 4194 Output Total 3290 3380 Balance -622 -256 Weight 96.4 kg 93.1 kg General appearance: PRESENT: no acute distress Eye exam: PRESENT: conjunctiva pink. ABSENT: scleral icterus Mouth exam: PRESENT: moist, tongue midline Neck exam: ABSENT: JVD Respiratory exam: PRESENT: clear to auscultation wan. ABSENT: rales, rhonchi, wheezes Cardiovascular exam: PRESENT: RRR. ABSENT: diastolic murmur, rubs, systolic murmur GI/Abdominal exam: PRESENT: normal bowel sounds, soft. ABSENT: distended, guarding, mass, organolmegaly, rebound, tenderness Extremities exam: PRESENT: other - Right hand is tender to palpate. Neurological exam: PRESENT: alert, awake, oriented to person, oriented to place , oriented to time, oriented to situation, CN II-XII grossly intact. ABSENT: motor sensory deficit Psychiatric exam: PRESENT: appropriate affect Skin exam: PRESENT: dry, intact, warm. ABSENT: cyanosis, rash Results Laboratory Results: 06/01/16 13:39 06/02/16 05:04 Impressions: Head CT 05/24/16 07:18 IMPRESSION: Motion artifact. 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 No high-grade obstruction. KUB X-Ray 05/30/16 08:45 IMPRESSION: 2 tubes in the stomach, a nasogastric and orogastric tube. Decrease in gaseous distension of bowel loops compared to 05/29/2016 KUB Chest X-Ray 06/01/16 07:48 IMPRESSION: Airspace disease seen at both lung bases has cleared. Assessment & Plan - Diagnosis (1) Sepsis Qualifiers: Sepsis type: sepsis due to unspecified organism Qualified Code(s): A41.9 - Sepsis, unspecified organism Is this a current diagnosis for this admission?: YesPlan: Patient has sepsis from pneumonia. He is getting Zosyn and Rocephin and is clinically improving. (2) Pneumonia Qualifiers: Pneumonia type: due to unspecified organism Lung location: lower lobe of lung Is this a current diagnosis for this admission?: YesPlan: Cultures have been negative for any bacteria. Continue Zosyn and Rocephin. (3) Hand pain, right Is this a current diagnosis for this admission?: YesPlan: We'll check a x-ray of the hand. (4) Acute hypoxemic respiratory failure Is this a current diagnosis for this admission?: YesPlan: Patient was intubated earlier during this hospitalization. He is improving. (5) Acute renal failure Is this a current diagnosis for this admission?: YesPlan: Resolved. (6) Anxiety disorder Is this a current diagnosis for this admission?: Yes (7) BPH (benign prostatic hypertrophy) Is this a current diagnosis for this admission?: Yes (8) Bipolar disorder Qualifiers: Active/Remission status: remission status unspecified Qualified Code (s): F31.9 - Bipolar disorder, unspecified Is this a current diagnosis for this admission?: YesPlan: Stable. (9) COPD (chronic obstructive pulmonary disease) Qualifiers: COPD type: unspecified COPD Qualified Code(s): J44.9 - Chronic obstructive pulmonary disease, unspecified Is this a current diagnosis for this admission?: Yes (10) Hyperlipidemia Qualifiers: Hyperlipidemia type: unspecified Qualified Code(s): E78.5 - Hyperlipidemia, unspecified Is this a current diagnosis for this admission?: Yes (11) Hypernatremia Is this a current diagnosis for this admission?: Yes (12) Hypertension Qualifiers: Hypertension type: essential hypertension Qualified Code(s): I10 - Essential (primary) hypertension Is this a current diagnosis for this admission?: Yes (13) Hypokalemia Is this a current diagnosis for this admission?: Yes (14) Schizophrenia Qualifiers: Schizophrenia type: unspecified Qualified Code(s): F20.9 - Schizophrenia, unspecified Is this a current diagnosis for this admission?: YesPlan: Stable. Patient is alert and oriented 3 today. - Time Time Spent with patient: 25-34 minutes - Inpatient Certification Medical Necessity: Need Close Monitoring Due to Risk of Patient Decompensation, Need for IV Antibiotics
[2016-06-03] MEDS: NICOTINE 21 MG/24 HR PATCH.TD24 TD SCH (17:00)
[2016-06-03] MEDS: HALOPERIDOL 5 MG TABLET PO SCH (17:01)
[2016-06-03] MEDS: QUETIAPINE FUMARATE 100 MG TABLET PO SCH (22:21)
[2016-06-04] MEDS: DEXTROSE 5%-WATER 1000 ML 1,000 ML IV PRN ×2 (00:20→14:39)
[2016-06-04] MEDS: ROPINIROLE HCL 0.25 MG TABLET PO PRN ×2 (01:27→23:08)
[2016-06-04] MEDS: PIPERACILLIN SODIUM/TAZOBACTAM 2.25 GM in NORMAL SALINE 50 ML IV SCH ×4 (03:51→21:50)
[2016-06-04 06:28] LABS: HEMATOCRIT 34.8 % (37.9-51.0); HEMOGLOBIN 11.7 g/dL (13.5-17.0); HGB HCT DIFFERENCE 0.3; MEAN CORPUSCULAR HEMOGLOBIN 26.8 pg (27.0-33.4); MEAN CORPUSCULAR HGB CONC 33.5 g/dL (32.0-36.0); MEAN CORPUSCULAR VOLUME 80 fl (80-97); RED BLOOD COUNT 4.35 10^6/uL (4.35-5.55); RED CELL DISTRIBUTION WIDTH 17.8 % (11.5-14.0)
[2016-06-04 06:54] LABS: ANION GAP 14 (5-19); BLOOD UREA NITROGEN 7 mg/dL (7-20); CALCIUM 9.1 mg/dL (8.4-10.2); CARBON DIOXIDE 20 mmol/L (22-30); CHLORIDE 112 mmol/L (98-107); CREATININE RESULT 0.68 mg/dL (0.52-1.25); GLUCOSE 115 mg/dL (75-110); POTASSIUM 4.1 mmol/L (3.6-5.0); SODIUM 146.2 mmol/L (137-145)
[2016-06-04 07:07] LABS: BASOPHILS % (MANUAL) 0 % (0-2); EOSINOPHILS % (MANUAL) 1 % (0-6); LYMPHOCYTES % (MANUAL) 25 % (13-45); TOTAL CELLS COUNTED 100
[2016-06-04 07:10] LABS: ANISOCYTOSIS 1+; POIKILOCYTOSIS SLIGHT; POLYCHROMASIA SLIGHT; TARGET CELLS SLIGHT
[2016-06-04] MEDS: ENOXAPARIN SODIUM INJ 40 MG/0.4 ML DISP.SYRIN SUBCUT SCH (08:05)
[2016-06-04] MEDS: POTASSIUM CHLORIDE 20 MEQ/15 ML UDCUP PO SCH ×2 (09:35→21:49)
[2016-06-04] MEDS: PANTOPRAZOLE SODIUM 40 MG VIAL IV SCH (09:37)
[2016-06-04] MEDS: LEVOFLOXACIN 750 MG/D5W RTU 750 MG/150 ML RTUPB IV SCH (09:37)
[2016-06-04] MEDS: MIDODRINE HCL 5 MG TABLET PO SCH (09:38)
[2016-06-04] MEDS: ENALAPRIL MALEATE 10 MG TABLET PO SCH (09:38)
[2016-06-04] MEDS: BACLOFEN 10 MG TABLET PO SCH ×3 (09:39→17:25)
[2016-06-04] MEDS: BENZTROPINE MESYLATE 1 MG TABLET PO SCH ×2 (09:39→17:25)
[2016-06-04] MEDS: GABAPENTIN 100 MG CAPSULE PO SCH ×2 (09:39→21:51)
--- NOTE | 2016-06-04 12:14 | PDOC PROGRESS REPORT ---
Subjective Progress Note for:: 06/04/16 Subjective:: At the time of my exam the patient was very drowsy as he just received some medications. He denied any complaints. Physical Exam Vital Signs: Temp Pulse Resp BP Pulse Ox 97.8 F 86 23 H 101/61 93 06/04/16 08:04 06/04/16 08:11 06/04/16 08:04 06/04/16 08:04 06/04/16 08:04 Intake & Output 06/03/16 06/04/16 06/05/16 06:59 06:59 06:59 Intake Total 4194 3970 Output Total 4450 6600 Balance -256 -2630 Weight 93.1 kg 91.9 kg General appearance: PRESENT: no acute distress Eye exam: PRESENT: conjunctiva pink. ABSENT: scleral icterus Mouth exam: PRESENT: moist, tongue midline Neck exam: ABSENT: JVD Respiratory exam: PRESENT: clear to auscultation wan. ABSENT: rales, rhonchi, wheezes Cardiovascular exam: PRESENT: RRR. ABSENT: diastolic murmur, rubs, systolic murmur GI/Abdominal exam: PRESENT: normal bowel sounds, soft. ABSENT: distended, guarding, mass, organolmegaly, rebound, tenderness Extremities exam: ABSENT: calf tenderness, clubbing, pedal edema Neurological exam: PRESENT: alert, awake, oriented to person, oriented to place , oriented to time, oriented to situation, CN II-XII grossly intact. ABSENT: motor sensory deficit Psychiatric exam: PRESENT: appropriate affect Skin exam: PRESENT: dry, intact, warm. ABSENT: cyanosis, rash Results Laboratory Results: 06/04/16 06:09 06/04/16 06:09 06/04/16 06/04/16 06:09 06:09 WBC 7.0 RBC 4.35 Hgb 11.7 L Hct 34.8 L MCV 80 MCH 26.8 L MCHC 33.5 RDW 17.8 H Plt Count 179 Seg Neutrophils % Not Reportable Lymphocytes % Not Reportable Monocytes % Not Reportable Eosinophils % Not Reportable Basophils % Not Reportable Absolute Neutrophils Not Reportable Absolute Lymphocytes Not Reportable Absolute Monocytes Not Reportable Absolute Eosinophils Not Reportable Absolute Basophils Not Reportable Sodium 146.2 H Potassium 4.1 Chloride 112 H Carbon Dioxide 20 L Anion Gap 14 BUN 7 Creatinine 0.68 Est GFR ( Amer) > 60 Est GFR (Non-Af Amer) > 60 Glucose 115 H Calcium 9.1 Impressions: Head CT 05/24/16 07:18 IMPRESSION: Motion artifact. Limited negative study Abdomen/Pelvis CT 05/28/16 00:00 IMPRESSION: Partial colonic obstruction versus pseudo-obstruction [place]'s syndrome. No high-grade obstruction. KUB X-Ray 05/30/16 08:45 IMPRESSION: 2 tubes in the stomach, a nasogastric and orogastric tube. Decrease in gaseous distension of bowel loops compared to 05/29/2016 KUB Chest X-Ray 06/01/16 07:48 IMPRESSION: Airspace disease seen at both lung bases has cleared. Hand X-Ray 06/03/16 00:00 IMPRESSION: No acute injury evident. Assessment & Plan - Diagnosis (1) Sepsis Qualifiers: Sepsis type: sepsis due to unspecified organism Qualified Code(s): A41.9 - Sepsis, unspecified organism Is this a current diagnosis for this admission?: YesPlan: Patient has sepsis from pneumonia. He is getting Zosyn and Rocephin and is clinically improving. (2) Pneumonia Qualifiers: Pneumonia type: due to unspecified organism Lung location: lower lobe of lung Is this a current diagnosis for this admission?: YesPlan: Cultures have been negative for any bacteria. Continue Zosyn and Rocephin. (3) Hand pain, right Is this a current diagnosis for this admission?: YesPlan: X-ray of the hand is negative for any pathology. (4) Acute hypoxemic respiratory failure Is this a current diagnosis for this admission?: YesPlan: Patient was intubated earlier during this hospitalization. He is improving. (5) Acute renal failure Is this a current diagnosis for this admission?: YesPlan: Resolved. (6) Anxiety disorder Is this a current diagnosis for this admission?: Yes (7) BPH (benign prostatic hypertrophy) Is this a current diagnosis for this admission?: Yes (8) Bipolar disorder Qualifiers: Active/Remission status: remission status unspecified Qualified Code (s): F31.9 - Bipolar disorder, unspecified Is this a current diagnosis for this admission?: YesPlan: Stable. (9) COPD (chronic obstructive pulmonary disease) Qualifiers: COPD type: unspecified COPD Qualified Code(s): J44.9 - Chronic obstructive pulmonary disease, unspecified Is this a current diagnosis for this admission?: YesPlan: No wheezing on exam. (10) Hyperlipidemia Qualifiers: Hyperlipidemia type: unspecified Qualified Code(s): E78.5 - Hyperlipidemia, unspecified Is this a current diagnosis for this admission?: Yes (11) Hypernatremia Is this a current diagnosis for this admission?: YesPlan: Improving. (12) Hypertension Qualifiers: Hypertension type: essential hypertension Qualified Code(s): I10 - Essential (primary) hypertension Is this a current diagnosis for this admission?: Yes (13) Hypokalemia Is this a current diagnosis for this admission?: YesPlan: Resolved. (14) Schizophrenia Qualifiers: Schizophrenia type: unspecified Qualified Code(s): F20.9 - Schizophrenia, unspecified Is this a current diagnosis for this admission?: YesPlan: Stable. Patient is alert and oriented 3 today. - Time Time Spent with patient: 25-34 minutes - Inpatient Certification Medical Necessity: Need Close Monitoring Due to Risk of Patient Decompensation, Need for IV Antibiotics
[2016-06-04] MEDS: NICOTINE 21 MG/24 HR PATCH.TD24 TD SCH (17:25)
[2016-06-04] MEDS: HALOPERIDOL 5 MG TABLET PO SCH (17:26)
[2016-06-04] MEDS: OXYCODONE HCL IR 5 MG TABLET PO PRN (20:08)
[2016-06-04] MEDS: QUETIAPINE FUMARATE 100 MG TABLET PO SCH (21:50)
[2016-06-05] MEDS: DEXTROSE 5%-WATER 1000 ML 1,000 ML IV PRN (00:37)
[2016-06-05] MEDS: OXYCODONE HCL IR 5 MG TABLET PO PRN ×2 (02:37→18:42)
[2016-06-05] MEDS: PIPERACILLIN SODIUM/TAZOBACTAM 2.25 GM in NORMAL SALINE 50 ML IV SCH ×4 (02:50→21:16)
[2016-06-05 06:14] LABS: ABSOLUTE BASOPHILS # (AUTO) 0.1 10^3/uL (0.0-0.2); ABSOLUTE EOSINOPHILS # (AUTO) 0.2 10^3/uL (0.0-0.6); ABSOLUTE LYMPHOCYTES (AUTO) 2.5 10^3/uL (0.5-4.7); ABSOLUTE MONOCYTES (AUTO) 0.9 10^3/uL (0.1-1.4); BASOPHILS % (AUTO) 0.9 % (0-2); EOSINOPHILS % (AUTO) 1.8 % (0-6); HEMATOCRIT 36.4 % (37.9-51.0); HEMOGLOBIN 11.9 g/dL (13.5-17.0); HGB HCT DIFFERENCE -0.7; LYMPHOCYTES % (AUTO) 28.5 % (13-45); MEAN CORPUSCULAR HEMOGLOBIN 26.5 pg (27.0-33.4); MEAN CORPUSCULAR HGB CONC 32.5 g/dL (32.0-36.0); MEAN CORPUSCULAR VOLUME 81 fl (80-97); MONOCYTES % (AUTO) 10.6 % (3-13); RED BLOOD COUNT 4.47 10^6/uL (4.35-5.55); RED CELL DISTRIBUTION WIDTH 17.5 % (11.5-14.0); SEGMENTED NEUTROPHILS % (AUTO) 58.2 % (42-78); WHITE BLOOD COUNT 8.7 10^3/uL (4.0-10.5)
[2016-06-05 06:39] LABS: ANION GAP 13 (5-19); BLOOD UREA NITROGEN 8 mg/dL (7-20); CALCIUM 9.5 mg/dL (8.4-10.2); CARBON DIOXIDE 24 mmol/L (22-30); CHLORIDE 109 mmol/L (98-107); CREATININE RESULT 0.78 mg/dL (0.52-1.25); GLUCOSE 110 mg/dL (75-110); POTASSIUM 4.4 mmol/L (3.6-5.0); SODIUM 146.2 mmol/L (137-145)
[2016-06-05] MEDS: LEVOFLOXACIN 750 MG/D5W RTU 750 MG/150 ML RTUPB IV SCH (09:28)
[2016-06-05] MEDS: ENOXAPARIN SODIUM INJ 40 MG/0.4 ML DISP.SYRIN SUBCUT SCH (09:31)
[2016-06-05] MEDS: POTASSIUM CHLORIDE 20 MEQ/15 ML UDCUP PO SCH ×2 (09:32→21:15)
[2016-06-05] MEDS: BACLOFEN 10 MG TABLET PO SCH ×3 (09:34→17:05)
[2016-06-05] MEDS: GABAPENTIN 100 MG CAPSULE PO SCH ×2 (09:34→21:17)
[2016-06-05] MEDS: BENZTROPINE MESYLATE 1 MG TABLET PO SCH ×2 (09:34→17:05)
[2016-06-05] MEDS: MIDODRINE HCL 5 MG TABLET PO SCH (09:34)
[2016-06-05] MEDS: PANTOPRAZOLE SODIUM 40 MG VIAL IV SCH (09:35)
[2016-06-05] MEDS: ENALAPRIL MALEATE 10 MG TABLET PO SCH (09:35)
--- NOTE | 2016-06-05 16:58 | PDOC PROGRESS REPORT ---
Subjective Progress Note for:: 06/05/16 Subjective:: He had colonoscopy with colonic decompression by Dr Thompson on 05/29/2016 and we appreciate his input in mgt of this pt. Pt was successfully extubated on .He is on oxygen by N/C .He is on soft restraint due to being a little bit aggressive. His potassium on 05/31/2016 was 3.0 and we will give him KCL 20 MEQ IV x3 doses and put him on KCL 20 MEQ BID po(Liquid form). His bed side swallowing evaluation is fine and we will start all his po meds. We will get PT /OT consult. He will step him down to [facility] level of care. His potassium on 06/02 was 3.4; we will give KCL 20 MEQ IVx1.Ct with PT/OT since still has deconditioning after being on mech. ventilation. He is still improving on PT/OT and is for possible discharge on 06/07/2016. Physical Exam Vital Signs: Temp Pulse Resp BP Pulse Ox 98.7 F 89 18 99/67 L 95 06/05/16 15:56 06/05/16 15:56 06/05/16 15:56 06/05/16 15:56 06/05/16 15:56 Intake & Output 06/04/16 06/05/16 06/06/16 06:59 06:59 06:59 Intake Total 3970 3897 474 Output Total 6600 5500 700 Balance -2630 -1603 -226 Weight 91.9 kg 93.2 kg General appearance: PRESENT: well-developed, well-nourished Head exam: PRESENT: atraumatic, normocephalic Eye exam: PRESENT: EOMI, PERRLA Mouth exam: PRESENT: moist, neck supple, tongue midline Respiratory exam: PRESENT: decreased breath sounds, symmetrical Cardiovascular exam: PRESENT: +S1, +S2 GI/Abdominal exam: PRESENT: normal bowel sounds, soft Rectal exam: PRESENT: deferred Neurological exam: PRESENT: alert, awake, oriented to person, oriented to place , oriented to time Psychiatric exam: PRESENT: normal mood Results Laboratory Results: 06/05/16 05:44 06/05/16 05:44 06/05/16 06/05/16 05:44 05:44 WBC 8.7 RBC 4.47 Hgb 11.9 L Hct 36.4 L MCV 81 MCH 26.5 L MCHC 32.5 RDW 17.5 H Plt Count 224 Seg Neutrophils % 58.2 Lymphocytes % 28.5 Monocytes % 10.6 Eosinophils % 1.8 Basophils % 0.9 Absolute Neutrophils 5.0 Absolute Lymphocytes 2.5 Absolute Monocytes 0.9 Absolute Eosinophils 0.2 Absolute Basophils 0.1 Sodium 146.2 H Potassium 4.4 Chloride 109 H Carbon Dioxide 24 Anion Gap 13 BUN 8 Creatinine 0.78 Est GFR ( Amer) > 60 Est GFR (Non-Af Amer) > 60 Glucose 110 Calcium 9.5 Impressions: Head CT 05/24/16 07:18 IMPRESSION: Motion artifact. Limited negative study Abdomen/Pelvis CT 05/28/16 00:00 IMPRESSION: Partial colonic obstruction versus pseudo-obstruction [place]'s syndrome. No high-grade obstruction. KUB X-Ray 05/30/16 08:45 IMPRESSION: 2 tubes in the stomach, a nasogastric and orogastric tube. Decrease in gaseous distension of bowel loops compared to 05/29/2016 KUB Chest X-Ray 06/01/16 07:48 IMPRESSION: Airspace disease seen at both lung bases has cleared. Hand X-Ray 06/03/16 00:00 IMPRESSION: No acute injury evident. Assessment & Plan - Diagnosis (1) Sepsis Qualifiers: Sepsis type: sepsis due to unspecified organism Qualified Code(s): A41.9 - Sepsis, unspecified organism Is this a current diagnosis for this admission?: YesPlan: Switch IV fluids to D5 in water at 125 ml/hr due to hypernatremia; Zosyn 2.25 g q6gh IV; Levaquin 750 mg qd IV; Tylenol 650 mg q4h prn po. F/u blood and sputum cultures. (2) Pneumonia Qualifiers: Pneumonia type: due to unspecified organism Lung location: lower lobe of lung Is this a current diagnosis for this admission?: YesPlan: Ct with IV Zosyn 2.25 g Q6H IV and Rocephin 750 mg qd IV. (3) Acute hypoxemic respiratory failure Is this a current diagnosis for this admission?: YesPlan: Ct with Oxygen by N/C at 2-3 L/min to keep saturation >92%. (4) Hypokalemia Is this a current diagnosis for this admission?: YesPlan: He was given KCL 20 MEQ IV x3 doses; we will put him on KCL 20 MEQ BID(Liquid form) po; monitor chemistry daily.His mg level is normal. (5) Adynamic ileus Is this a current diagnosis for this admission?: YesPlan: Resolved; he is s.p colonoscopy with colonic decompression by Dr Thompson. We will correct hypokalemia with KCL IV replacement. We will get dietitian consult for dietary mgt. (6) COPD (chronic obstructive pulmonary disease) Qualifiers: COPD type: unspecified COPD Qualified Code(s): J44.9 - Chronic obstructive pulmonary disease, unspecified Is this a current diagnosis for this admission?: YesPlan: Ct with Duonebs q4h prn. (7) Hypertension Qualifiers: Hypertension type: essential hypertension Qualified Code(s): I10 - Essential (primary) hypertension Is this a current diagnosis for this admission?: YesPlan: Restart Toprol 50 mg qd po; Enalapril 10 mg qd po. Hold Midodrine 10 mg qd for now..Ct with Metoprolol 2.5 mg q6h IV prn.2g sodium diet. (8) Hyperlipidemia Qualifiers: Hyperlipidemia type: unspecified Qualified Code(s): E78.5 - Hyperlipidemia, unspecified Is this a current diagnosis for this admission?: YesPlan: Restart Atorvastatin 20 mg qhs and Tricor 145 mg qd po. 200mg cholesterol diet. (9) GERD (gastroesophageal reflux disease) Qualifiers: Esophagitis presence: without esophagitis Qualified Code(s): K21.9 - Gastro-esophageal reflux disease without esophagitis Is this a current diagnosis for this admission?: YesPlan: Ct with Protonix 40 mg qd IV. (10) Chronic back pain Qualifiers: Back pain location: back pain in unspecified location Back pain laterality: unspecified Qualified Code(s): M54.9 - Dorsalgia, unspecified ; G89.29 - Other chronic pain Is this a current diagnosis for this admission?: YesPlan: Restart Oxycontin 60 mg Q6H po; Oxycodone 15 mg q6h prn po. Tylenol 650 mg q4h prn po. Gabapentin 200 mg BID po. Restart Baclofen 10 mg TID po. (11) DVT prophylaxis Is this a current diagnosis for this admission?: YesPlan: Ct with SCD. (12) Schizophrenia Qualifiers: Schizophrenia type: unspecified Qualified Code(s): F20.9 - Schizophrenia, unspecified Is this a current diagnosis for this admission?: YesPlan: Restart Haloperidol 10 mg qpm po; Seroquel 800 mg qhs po; Benztropine 2mg BID po. (13) Depression Is this a current diagnosis for this admission?: YesPlan: Restart Seroquel 800 mg qhs po. (14) Anxiety disorder Is this a current diagnosis for this admission?: YesPlan: Ct with Ativan 1mg TID prn po (15) Constipation Is this a current diagnosis for this admission?: YesPlan: Miralax 17 g BID prn po.
[2016-06-05] MEDS: HALOPERIDOL 5 MG TABLET PO SCH (17:05)
[2016-06-05] MEDS: NICOTINE 21 MG/24 HR PATCH.TD24 TD SCH (17:05)
[2016-06-05] MEDS: QUETIAPINE FUMARATE 100 MG TABLET PO SCH (21:17)
[2016-06-06] MEDS: PIPERACILLIN SODIUM/TAZOBACTAM 2.25 GM in NORMAL SALINE 50 ML IV SCH ×4 (03:48→21:22)
[2016-06-06] MEDS: ENOXAPARIN SODIUM INJ 40 MG/0.4 ML DISP.SYRIN SUBCUT SCH (10:27)
[2016-06-06] MEDS: POTASSIUM CHLORIDE 20 MEQ/15 ML UDCUP PO SCH ×2 (10:33→21:20)
[2016-06-06] MEDS: MIDODRINE HCL 5 MG TABLET PO SCH (10:33)
[2016-06-06] MEDS: PANTOPRAZOLE SODIUM 40 MG VIAL IV SCH (10:33)
[2016-06-06] MEDS: LEVOFLOXACIN 750 MG/D5W RTU 750 MG/150 ML RTUPB IV SCH (10:33)
[2016-06-06] MEDS: BACLOFEN 10 MG TABLET PO SCH ×3 (10:34→17:29)
[2016-06-06] MEDS: GABAPENTIN 100 MG CAPSULE PO SCH ×2 (10:34→21:20)
[2016-06-06] MEDS: BENZTROPINE MESYLATE 1 MG TABLET PO SCH ×2 (10:34→17:29)
[2016-06-06] MEDS: ENALAPRIL MALEATE 10 MG TABLET PO SCH (10:34)
[2016-06-06] MEDS: OXYCODONE HCL IR 5 MG TABLET PO PRN (13:47)
--- NOTE | 2016-06-06 16:40 | PDOC PROGRESS REPORT ---
Subjective Progress Note for:: 06/06/16 Subjective:: He had colonoscopy with colonic decompression by Dr Thompson on 05/29/2016 and we appreciate his input in mgt of this pt. Pt was successfully extubated on .He is on oxygen by N/C .He is on soft restraint due to being a little bit aggressive. His potassium on 05/31/2016 was 3.0 and we will give him KCL 20 MEQ IV x3 doses and put him on KCL 20 MEQ BID po(Liquid form). His bed side swallowing evaluation is fine and we will start all his po meds. We will get PT /OT consult. He will step him down to IMCU level of care. His potassium on 06/02 was 3.4; we will give KCL 20 ME[address].Ct with PT/OT since still has deconditioning after being on mech. ventilation. He is still improving on PT/OT and is for possible discharge on 06/07/2016. Physical Exam Vital Signs: Temp Pulse Resp BP Pulse Ox 97.4 F 94 18 113/71 95 06/06/16 11:50 06/06/16 14:00 06/06/16 11:50 06/06/16 11:50 06/06/16 11:50 Intake & Output 06/05/16 06/06/16 06/07/16 06:59 06:59 06:59 Intake Total 3897 1669 474 Output Total 5500 2200 Balance -1603 -531 474 Weight 93.2 kg 90.8 kg General appearance: PRESENT: no acute distress, well-developed, well-nourished Head exam: PRESENT: atraumatic, normocephalic Eye exam: PRESENT: EOMI, PERRLA Ear exam: PRESENT: TM's normal bilaterally Mouth exam: PRESENT: moist, neck supple, tongue midline Respiratory exam: PRESENT: decreased breath sounds, symmetrical Cardiovascular exam: PRESENT: +S1, +S2 GI/Abdominal exam: PRESENT: normal bowel sounds, soft Rectal exam: PRESENT: deferred Neurological exam: PRESENT: alert, awake, oriented to person, oriented to place , oriented to time Psychiatric exam: PRESENT: normal mood Results Laboratory Results: 06/05/16 05:44 06/05/16 05:44 Impressions: Head CT 05/24/16 07:18 IMPRESSION: Motion artifact. 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 No high-grade obstruction. KUB X-Ray 05/30/16 08:45 IMPRESSION: 2 tubes in the stomach, a nasogastric and orogastric tube. Decrease in gaseous distension of bowel loops compared to 05/29/2016 KUB Chest X-Ray 06/01/16 07:48 IMPRESSION: Airspace disease seen at both lung bases has cleared. Hand X-Ray 06/03/16 00:00 IMPRESSION: No acute injury evident. Assessment & Plan - Diagnosis (1) Sepsis Qualifiers: Sepsis type: sepsis due to unspecified organism Qualified Code(s): A41.9 - Sepsis, unspecified organism Is this a current diagnosis for this admission?: YesPlan: Switch IV fluids to D5 in water at 125 ml/hr due to hypernatremia; Zosyn 2.25 g q6gh IV; Levaquin 750 mg qd IV; Tylenol 650 mg q4h prn po. F/u blood and sputum cultures. (2) Pneumonia Qualifiers: Pneumonia type: due to unspecified organism Lung location: lower lobe of lung Is this a current diagnosis for this admission?: YesPlan: Ct with IV Zosyn 2.25 g Q6H IV and Rocephin 750 mg qd IV. (3) Acute hypoxemic respiratory failure Is this a current diagnosis for this admission?: YesPlan: Ct with Oxygen by N/C at 2-3 L/min to keep saturation >92%. (4) Hypokalemia Is this a current diagnosis for this admission?: YesPlan: He was given KCL 20 MEQ IV x3 doses; we will put him on KCL 20 MEQ BID(Liquid form) po; monitor chemistry daily.His mg level is normal. (5) Adynamic ileus Is this a current diagnosis for this admission?: YesPlan: Resolved; he is s.p colonoscopy with colonic decompression by Dr Thompson. We will correct hypokalemia with KCL IV replacement. We will get dietitian consult for dietary mgt. (6) COPD (chronic obstructive pulmonary disease) Qualifiers: COPD type: unspecified COPD Qualified Code(s): J44.9 - Chronic obstructive pulmonary disease, unspecified Is this a current diagnosis for this admission?: YesPlan: Ct with Duonebs q4h prn. (7) Hypertension Qualifiers: Hypertension type: essential hypertension Qualified Code(s): I10 - Essential (primary) hypertension Is this a current diagnosis for this admission?: YesPlan: Restart Toprol 50 mg qd po; Enalapril 10 mg qd po. Hold Midodrine 10 mg qd for now..Ct with Metoprolol 2.5 mg q6h IV prn.2g sodium diet. (8) Hyperlipidemia Qualifiers: Hyperlipidemia type: unspecified Qualified Code(s): E78.5 - Hyperlipidemia, unspecified Is this a current diagnosis for this admission?: YesPlan: Restart Atorvastatin 20 mg qhs and Tricor 145 mg qd po. 200mg cholesterol diet. (9) GERD (gastroesophageal reflux disease) Qualifiers: Esophagitis presence: without esophagitis Qualified Code(s): K21.9 - Gastro-esophageal reflux disease without esophagitis Is this a current diagnosis for this admission?: YesPlan: Ct with Protonix 40 mg qd IV. (10) Chronic back pain Qualifiers: Back pain location: back pain in unspecified location Back pain laterality: unspecified Qualified Code(s): M54.9 - Dorsalgia, unspecified ; G89.29 - Other chronic pain Is this a current diagnosis for this admission?: YesPlan: Restart Oxycontin 60 mg Q6H po; Oxycodone 15 mg q6h prn po. Tylenol 650 mg q4h prn po. Gabapentin 200 mg BID po. Restart Baclofen 10 mg TID po. (11) DVT prophylaxis Is this a current diagnosis for this admission?: YesPlan: Ct with SCD. (12) Schizophrenia Qualifiers: Schizophrenia type: unspecified Qualified Code(s): F20.9 - Schizophrenia, unspecified Is this a current diagnosis for this admission?: YesPlan: Restart Haloperidol 10 mg qpm po; Seroquel 800 mg qhs po; Benztropine 2mg BID po. (13) Depression Is this a current diagnosis for this admission?: YesPlan: Restart Seroquel 800 mg qhs po. (14) Anxiety disorder Is this a current diagnosis for this admission?: YesPlan: Ct with Ativan 1mg TID prn po (15) Constipation Is this a current diagnosis for this admission?: YesPlan: Miralax 17 g BID prn po. - Time Time Spent with patient: 35 or more minutes Smoking Cessation Education: 3 to 10 minutes Medications reviewed and adjusted accordingly: Yes Anticipated discharge: Home Within: within 24 hours
[2016-06-06] MEDS: HALOPERIDOL 5 MG TABLET PO SCH (17:29)
[2016-06-06] MEDS: NICOTINE 21 MG/24 HR PATCH.TD24 TD SCH (17:32)
[2016-06-06] MEDS: QUETIAPINE FUMARATE 100 MG TABLET PO SCH (21:21)
[2016-06-07] MEDS: PIPERACILLIN SODIUM/TAZOBACTAM 2.25 GM in NORMAL SALINE 50 ML IV SCH ×2 (03:51→09:00)
[2016-06-07] MEDS: POTASSIUM CHLORIDE 20 MEQ/15 ML UDCUP PO SCH (09:05)
[2016-06-07] MEDS: ENOXAPARIN SODIUM INJ 40 MG/0.4 ML DISP.SYRIN SUBCUT SCH (09:05)
[2016-06-07] MEDS: MIDODRINE HCL 5 MG TABLET PO SCH (09:06)
[2016-06-07] MEDS: ENALAPRIL MALEATE 10 MG TABLET PO SCH (09:07)
[2016-06-07] MEDS: GABAPENTIN 100 MG CAPSULE PO SCH (09:07)
[2016-06-07] MEDS: BACLOFEN 10 MG TABLET PO SCH (09:07)
[2016-06-07] MEDS: BENZTROPINE MESYLATE 1 MG TABLET PO SCH (09:07)
[2016-06-07] MEDS: LEVOFLOXACIN 750 MG/D5W RTU 750 MG/150 ML RTUPB IV SCH (09:08)
[2016-06-07] MEDS: PANTOPRAZOLE SODIUM 40 MG VIAL IV SCH (09:11)
--- NOTE | 2016-06-07 12:24 | PDOC DISCHARGE SUMMARY ---
General - Admit/Disc Date/PCP Admission Date/Primary Care Provider: 05/24/16 18:30 JESSIE ORTIZ Discharge Date: 06/07/16 - Discharge Diagnosis (1) Sepsis Is this a current diagnosis for this admission?: Yes (2) Pneumonia Is this a current diagnosis for this admission?: Yes (3) Acute hypoxemic respiratory failure Is this a current diagnosis for this admission?: Yes (4) Hypokalemia Is this a current diagnosis for this admission?: Yes (5) Adynamic ileus Is this a current diagnosis for this admission?: Yes (6) COPD (chronic obstructive pulmonary disease) Is this a current diagnosis for this admission?: Yes (7) Hypertension Is this a current diagnosis for this admission?: Yes (8) Hyperlipidemia Is this a current diagnosis for this admission?: Yes (9) GERD (gastroesophageal reflux disease) Is this a current diagnosis for this admission?: Yes (10) Chronic back pain Is this a current diagnosis for this admission?: Yes (11) DVT prophylaxis Is this a current diagnosis for this admission?: Yes (12) Schizophrenia Is this a current diagnosis for this admission?: Yes (13) Depression Is this a current diagnosis for this admission?: Yes (14) Anxiety disorder Is this a current diagnosis for this admission?: Yes (15) Constipation Is this a current diagnosis for this admission?: Yes - Additional Information Resuscitation Status: Full Code Discharge Activity: Activity As Tolerated Home Medications: Atorvastatin Calcium [Lipitor 20 mg Tablet] 20 mg PO DAILY 05/24/16 Baclofen [Baclofen 10 mg Tablet] 10 mg PO TID 05/24/16 Benztropine Mesylate [Benztropine Mesylate 2 mg Tablet] 2 mg PO BID 05/24/16 Enalapril Maleate [Vasotec 10 mg Tablet] 10 mg PO DAILY 05/24/16 Ergocalciferol (Vitamin D2) [Drisdol 50,000 unit (1.25MG) Capsule] 50,000 unit PO MOFR@2200 05/24/16 Esomeprazole Magnesium [Nexium] 40 mg PO QAM 05/24/16 Fenofibrate Nanocrystallized [Fenofibrate] 145 mg PO DAILY 05/24/16 Fluoxetine HCl [Prozac] 80 mg PO DAILY 05/24/16 Gabapentin [Neurontin 100 mg Capsule] 200 mg PO Q12 05/24/16 Haloperidol 10 mg PO QPM 05/24/16 Lorazepam [Ativan 1 mg Tablet] 1 mg PO TIDP PRN 05/24/16 Metoprolol Succinate [Toprol Xl 50 mg Tab.sr] 50 mg PO DAILY 05/24/16 Midodrine HCl [Proamatine 5 mg Tablet] 10 mg PO DAILY 05/24/16 Ondansetron HCl [Zofran 4 mg Tablet] 1 tab PO TIDP PRN 05/24/16 Oxycodone HCl 15 mg PO Q6HP PRN 05/24/16 Oxycodone HCl [Oxycontin] 60 mg PO Q8 05/24/16 Quetiapine Fumarate [Seroquel] 800 mg PO QHS 05/24/16 Ropinirole HCl [Requip 0.25 mg Tablet] 0.25 mg PO HSP PRN 05/24/16 Tamsulosin HCl [Flomax 0.4 mg Cap.sr] 0.4 mg PO DAILY 05/24/16 Zolpidem Tartrate [Ambien] 5 mg PO HSP PRN 05/24/16 History of Present Illness History of Present Illness: DONALD GARRIDO is a 41 year old male with hx of HTN/Hyperlipidemia/COPD/ Celiac disease/Back pain/GERD/Vitamin def./BPH/Schizophrenia/Depression/Anxiety disorder/Chronic smoker who was said to have altered mental status, cough, dyspnea and his oxygen saturation was 70% on room air. His WBC was 14.3. He could not maintain his airway and was intubated and put on mech. ventilation at ER. Hospital Course Hospital Course: 41 year old man who was put on mech. ventilation and admitted at ICU for acute hypoxemic respiratory failure and sepsis secondary to community acquired pneumonia.His hopsital course is complicate by fecal impaction due to excessive narcotics which he gets from pain clinic. He had CT abdomen/pelvis and eventually had colonoscopy by Dr Thompson for colonic mass that turned out to be fecal impaction which was decompressed during colonoscopy. He was successfully extubated on 05/30/2016 and stepped down to IMCU on 06/01/2016. He also developed deconditioning and we got PT/OT consult and he has improved remarkably, but physical therapy recommended PT/OT on outpatient basis on discharge.He ambulates sometimes with cane prior to this hospital admission. Patient will be followed by his PCP on 06/15/2016 for transition of care. Physical Exam Vital Signs: Temp Pulse Resp BP Pulse Ox 98.5 F 89 18 101/63 90 L 06/07/16 07:44 06/07/16 07:44 06/07/16 07:44 06/07/16 07:44 06/07/16 07:44 Intake & Output 06/06/16 06/07/16 06/08/16 06:59 06:59 06:59 Intake Total 1669 1358 Output Total 2200 Balance -531 1358 Weight 90.8 kg 91.4 kg General appearance: PRESENT: no acute distress, well-developed, well-nourished Head exam: PRESENT: atraumatic, normocephalic Eye exam: PRESENT: EOMI, PERRLA Ear exam: PRESENT: normal external ear exam, TM's normal bilaterally Mouth exam: PRESENT: neck supple Respiratory exam: PRESENT: clear to auscultation wan, symmetrical Cardiovascular exam: PRESENT: +S1, +S2 Pulses: PRESENT: +2 pedal pulses bilateral Vascular exam: PRESENT: normal capillary refill GI/Abdominal exam: PRESENT: normal bowel sounds, soft Rectal exam: PRESENT: deferred Musculoskeletal exam: PRESENT: ambulatory Neurological exam: PRESENT: alert, awake, oriented to person, oriented to place , oriented to time Psychiatric exam: PRESENT: normal mood Results Laboratory Results: 06/05/16 05:44 06/05/16 05:44 Impressions: Head CT 05/24/16 07:18 IMPRESSION: Motion artifact. Limited negative study Abdomen/Pelvis CT 05/28/16 00:00 IMPRESSION: Partial colonic obstruction versus pseudo-obstruction [employer]'s syndrome. No high-grade obstruction. KUB X-Ray 05/30/16 08:45 IMPRESSION: 2 tubes in the stomach, a nasogastric and orogastric tube. Decrease in gaseous distension of bowel loops compared to 05/29/2016 KUB Chest X-Ray 06/01/16 07:48 IMPRESSION: Airspace disease seen at both lung bases has cleared. Hand X-Ray 06/03/16 00:00 IMPRESSION: No acute injury evident.
[2016-06-07 12:43] VITALS: BP 123/73
== END 2016-06-07 13:20 | disposition home or self-care (01) | DRG 870 ==
LOC: ER 07:14 → EH 11:46 → UNDOADMIN 11:46 → EH 17:59 → ICU 17:59 → 3S 06-01 21:45
PROVIDERS: ADMIT Internal Medicine; ATTEND Internal Medicine
PROC: 5A1955Z Respiratory Ventilation, Greater than 96 Consecutive Hours (ICD-10-PCS; principal; 2016-05-24)
PROC: 0D9670Z Drainage of Stomach with Drainage Device, Via Natural or Artificial Opening (ICD-10-PCS; 2016-05-24)
PROC: 0BH17EZ Insertion of Endotracheal Airway into Trachea, Via Natural or Artificial Opening (ICD-10-PCS; 2016-05-24)
PROC: 0DJD8ZZ Inspection of Lower Intestinal Tract, Via Natural or Artificial Opening Endoscopic (ICD-10-PCS; 2016-05-29)
PROC: 3E0F73Z Introduction of Anti-inflammatory into Respiratory Tract, Via Natural or Artificial Opening (ICD-10-PCS; 2016-05-30)
DX: A41.9 Sepsis, unspecified organism (principal); J18.9 Pneumonia, unspecified organism; J96.01 Acute respiratory failure with hypoxia; K56.0 Paralytic ileus; F31.89 Other bipolar disorder; E87.0 Hyperosmolality and hypernatremia; E87.6 Hypokalemia; J44.9 Chronic obstructive pulmonary disease, unspecified; I10 Essential (primary) hypertension; E78.5 Hyperlipidemia, unspecified; K21.9 Gastro-esophageal reflux disease without esophagitis; G89.29 Other chronic pain; M54.9 Dorsalgia, unspecified; F20.9 Schizophrenia, unspecified; F41.9 Anxiety disorder, unspecified; K90.0 Celiac disease; E56.9 Vitamin deficiency, unspecified; N40.0 Benign prostatic hyperplasia without lower urinary tract symptoms; R65.20 Severe sepsis without septic shock; K56.41 Fecal impaction; T40.605A Adverse effect of unspecified narcotics, initial encounter; K21.0 Gastro-esophageal reflux disease with esophagitis; K31.89 Other diseases of stomach and duodenum; F17.210 Nicotine dependence, cigarettes, uncomplicated; E78.00 Pure hypercholesterolemia, unspecified; Z79.899 Other long term (current) drug therapy; Z86.14 Personal history of Methicillin resistant Staphylococcus aureus infection; Z90.49 Acquired absence of other specified parts of digestive tract; Z88.8 Allergy status to other drugs, medicaments and biological substances; Z91.013 Allergy to seafood; Z78.1 Physical restraint status; Z82.49 Family history of ischemic heart disease and other diseases of the circulatory system
CPT/HCPCS: 36415; 36600; 45378; 70450; 71010; 71020; 74000; 74176; 80048; 80053; 80061; 80307; 81001; 82140; 82550; 82553; 82803; 82962; 83605; 83735; 83880; 84100; 84439; 84443; 84478; 84484; 85025; 85027; 87040; 87070; 87205; 93005; 93010; 94002; 94003; 94640; 94799; 96365; 99291; G8978-GP; G8979-GP; G8987-GO; G8988-GO; J0171; J0330; J1100; J1200; J1650; J1956; J2250; J2270; J2310; J2405; J2543; J2704; J3010; J3480; J3490; J7030; J7040; J7060; J7620; S0164

== ENCOUNTER 2016-09-26 10:30 | Day surgery (SDC) | payer MEDICARE, MEDICAID ==
[2016-09-26] MEDS ORDERED: PROPOFOL INJ 200 MG/20 ML VIAL IV ONE (11:09)
[2016-09-26] MEDS ORDERED: FENTANYL CITRATE INJ/PF 100 MCG/2 ML AMPUL ONE (13:05)
[2016-09-26] MEDS ORDERED: MIDAZOLAM 2 MG/2 ML INJ ONE (13:06)
--- NOTE | 2016-09-26 13:48 | Operative Report ---
Operative Report DATE OF SURGERY: 09/26/16 Operative Report: The risks, benefits and alternatives of the procedure including risks of bleeding, perforation requiring surgery are explained to the patient detail and informed consent is obtained. Patient was taken to the operating room and placed in the left, lateral decubital position. A rectal examination was done which did not reveal any masses, tears or fissures. An Olympus videoscope was inserted into the patient's rectum. Timeout had been called. Propofol medication of been administered. The scope was then carefully guided all the way to the cecum. The prep was good. Photodocumentation is obtained. The cecum was identified by the usual anatomical landmarks of the ileocecal valve as well as the appendiceal office. The scope was then sequentially pulled back via the rest segments of the colon including the ascending colon, hepatic flexure, transverse colon, splenic flexure, descending colon and finding to the rectosigmoid portions of the colon. Retroflexion maneuver was performed. PREOPERATIVE DIAGNOSIS: Incomplete colonoscopy previously attempted POSTOPERATIVE DIAGNOSIS: Polyp in the cecum status post snare polypectomy. Internal hemorrhoids OPERATION: Colonoscopy with snare polypectomy SURGEON: VINOD HERRERA ANESTHESIA: LMAC TISSUE REMOVED OR ALTERED: Cecal polyp retrieved COMPLICATIONS: None. ESTIMATED BLOOD LOSS: None. INTRAOPERATIVE FINDINGS: As described above. No masses, AVMs, diverticulosis noted. Internal hemorrhoids PROCEDURE: Patient tolerated procedure well. No immediate postprocedure complications are noted. Patient is discharged in good condition. Discharge date 09/26/2016. Discharge diet: Regular. Discharge activity: Regular. 2-3 week follow-up to discuss findings. 3-5 year surveillance colonoscopy. We will wait on pathology. Patient is instructed to call the office or proceed to the emergency room should there be any further problems or questions.
[2016-09-26 15:22] VITALS: BP 122/75
== END 2016-09-26 15:20 | disposition home or self-care (01) ==
LOC: OROUT 10:30 → EEVIPCON 10:30 → OROUT 15:20
PROVIDERS: ATTEND Internal Medicine Gastroenterology
PROC: 0DBH8ZX Excision of Cecum, Via Natural or Artificial Opening Endoscopic, Diagnostic (ICD-10-PCS; principal; 2016-09-26 12:30)
DX: D12.0 Benign neoplasm of cecum (principal); K92.1 Melena; K64.8 Other hemorrhoids; F17.210 Nicotine dependence, cigarettes, uncomplicated; E78.5 Hyperlipidemia, unspecified; K21.9 Gastro-esophageal reflux disease without esophagitis; I12.9 Hypertensive chronic kidney disease with stage 1 through stage 4 chronic kidney disease, or unspecified chronic kidney disease; N18.9 Chronic kidney disease, unspecified; Z79.899 Other long term (current) drug therapy; Z87.892 Personal history of anaphylaxis
CPT/HCPCS: 45385; 88305 ×2; J2250; J3010; J2704; 810

== ENCOUNTER 2017-07-14 10:42 | Inpatient (IN) | payer MEDICARE, MEDICAID ==
--- NOTE | 2017-07-14 11:14 | RADIOLOGY REPORT (SQ) ---
EXAM DESCRIPTION: CT HEAD WITHOUT COMPLETED DATE/TIME: 07/14/2017 11:03 am REASON FOR STUDY: altered mental status COMPARISON: 2017. TECHNIQUE: Axial images acquired through the brain without intravenous contrast. Images reviewed wi th bone, brain and subdural windows. Additional sagittal and coronal reconstructions were generated. Images stored on PACS. All CT scanners at this facility use dose modulation, iterative reconstruction, and/or weight based d osing when appropriate to reduce radiation dose to as low as reasonably achievable (ALARA). [facility]: Dose Right [facility]: CareDose [facility]: Dose Right [facility]: Teradose 4D [facility]: Smart Digital [employer] RADIATION DOSE: CT Rad equipment meets quality standard of care and radiation dose reduction techniq ues were employed. CTDIvol: 55.2 mGy. DLP: 1112 mGy-cm. mGy. LIMITATIONS: None. FINDINGS: VENTRICLES: Normal size and contour. CEREBRUM: No masses. No hemorrhage. No midline shift. No evidence for acute infarction. Normal gra y/white matter differentiation. No areas of low density in the white matter. CEREBELLUM: No masses. No hemorrhage. No alteration of density. No evidence for acute infarction. EXTRAAXIAL SPACES: No fluid collections. No masses. ORBITS AND GLOBE: No intra- or extraconal masses. Normal contour of globe without masses. CALVARIUM: No fracture. PARANASAL SINUSES: No fluid or mucosal thickening. SOFT TISSUES: No mass or hematoma. OTHER: No other significant finding. IMPRESSION: NORMAL BRAIN CT WITHOUT CONTRAST. EVIDENCE OF ACUTE STROKE: NO. COMMENT: Quality ID # [id number]: Final reports with documentation of one or more dose reduction techniques (e.g., Automated exposure control, adjustment of the mA and/or kV according to patient size, use of iterative reconstruction technique) TECHNICAL DOCUMENTATION: JOB ID: [id number] [employer]- All Rights Reserved Reading location - IP/workstation name: [email or web address]
--- NOTE | 2017-07-14 11:16 | ER Document Report ---
ED General - General Stated Complaint: VOMITING Time Seen by Provider: 07/14/17 10:49 Mode of Arrival: Medic Information source: Patient, Emergency Med Personnel Cannot obtain history due to: Mentally challenged, Altered mental status Notes: 42-year-old male presents by EMS for altered mental status. Patient has a history of mental retardation, neighbor checks on him saw him this morning where he was acting appropriately, notes since then went to check on the patient again found him on the ground rolling around confused altered. Patient spells the at baseline is alert oriented 3 but has not been making any verbal comments here and is having left upper extremity and left lower extremity deficits TRAVEL OUTSIDE OF THE [place] IN LAST 30 DAYS: No - HPI Onset: Just prior to arrival Onset/Duration: Sudden Quality of pain: No pain Severity: Severe Pain Level: Denies Context: Friend is not here to give any further information Associated symptoms: Vomiting - Bright yellow, Weakness Exacerbated by: Denies Relieved by: Denies Similar symptoms previously: No Recently seen / treated by doctor: No - Related Data Allergies/Adverse Reactions: iodine [Iodine] Allergy (Intermediate, Verified 07/14/17 11:34) Blisters Shellfish * [Shellfish] Allergy (Intermediate, Verified 07/14/17 11:34) Blisters clonazepam [From Klonopin] Allergy (Verified 07/14/17 11:34) Blisters Past Medical History - Social History Smoking Status: Never Smoker Cigarette use (# per day): No Chew tobacco use (# tins/day): No Smoking Education Provided: No Family History: None, Hypertension - Past Medical History Cardiac Medical History: Reports: Hx Hypercholesterolemia, Hx Hypertension Denies: Hx Coronary Artery Disease, Hx Heart Attack Pulmonary Medical History: Reports: Hx COPD Denies: Hx Asthma, Hx Bronchitis, Hx Pneumonia Neurological Medical History: Denies: Hx Cerebrovascular Accident, Hx Seizures Renal/ Medical History: Reports: Hx Renal Insufficiency GI Medical History: Reports: Hx Gastroesophageal Reflux Disease Musculoskeltal Medical History: Denies Hx Arthritis, Reports Hx Musculoskeletal Deformity, Reports Hx Musculoskeletal Trauma Skin Medical History: Reports Hx Cellulitis, Reports Hx MRSA Psychiatric Medical History: Reports: Hx Bipolar Disorder, Hx Depression, Hx Schizophrenia Infectious Medical History: Reports: Hx MRSA Past Surgical History: Reports: Hx Cholecystectomy, Hx Oral Surgery, Hx Orthopedic Surgery - 9 back surgeries, with lower abdominal midline incision. - Immunizations Hx Diphtheria, Pertussis, Tetanus Vaccination: Yes Hx Pneumococcal Vaccination: 02/06/00 Review of Systems - Review of Systems Notes: REVIEW OF SYSTEMS: CONSTITUTIONAL : Denies fever, chills, or sweats. Denies recent illness. EENT: Denies eye, ear, throat, or mouth pain or symptoms. Denies nasal or sinus congestion or discharge. Denies throat, tongue, or mouth swelling or difficulty swallowing. CARDIOVASCULAR: Denies chest pain. Denies palpitations or racing or irregular heart beat. Denies ankle edema. RESPIRATORY: Denies cough, cold, or chest congestion. Denies shortness of breath, difficulty breathing, or wheezing. GASTROINTESTINAL: Noted to be vomiting bright yellow GENITOURINARY: Denies difficulty urinating, painful urination, burning, frequency, blood in urine, or discharge. MUSCULOSKELETAL: Denies back or neck pain or stiffness. Denies joint pain or swelling. SKIN: Denies rash, lesions or sores. HEMATOLOGIC : Denies easy bruising or bleeding. LYMPHATIC: Denies swollen, enlarged glands. NEUROLOGICAL: altered mental status and weakness per ems PSYCHIATRIC: Denies anxiety or stress. Denies depression, suicidal ideation, or homicidal ideation. ALL OTHER SYSTEMS REVIEWED AND NEGATIVE. Dictation was performed using [employer] voice recognition software PHYSICAL EXAMINATION: GENERAL: well nourished HEAD: Atraumatic, normocephalic. EYES: Pupils equal round and reactive to light, extraocular movements intact, sclera anicteric, conjunctiva are normal. ENT: Nares patent, oropharynx clear without exudates. Moist mucous membranes. NECK: Normal range of motion, supple without lymphadenopathy LUNGS: Breath sounds clear to auscultation bilaterally and equal. No wheezes rales or rhonchi. HEART: Regular rate and rhythm without murmurs ABDOMEN: Soft, nontender, nondistended abdomen. No guarding, no rebound. No masses appreciated. Musculoskeletal: left arm and left leg weakness NEUROLOGICAL: patient is not following any commands, is not speaking, has flacid upper and lower extremities, not grasping with the right side but is able to move it SKIN: Warm, Dry, normal turgor, no rashes or lesions noted. Physical Exam - Vital signs Vitals: Resp Pulse Ox 21 H 91 L 07/14/17 10:51 07/14/17 10:51 Course - Re-evaluation Re-evalutation: 07/14/17 11:15 I do not have a timeframe of when the symptoms occurred, there is no family or neighbor available for me to discuss his case with, I do not know the exact timeframe the patient was last known well, my concern is for stroke but given this limited information I do not believe the patient is appropriate for thrombolytics I am hoping we are able to reach someone, only number listed has been called Martin Parra 07/14/17 12:47 I went to recheck on patient, it is noted that he is not responding to pain stimuli I am unable to arouse the patient I will intubate for airway protection 07/14/17 13:09 Patient was intubated with no difficulty, I do not have a specific cause of his presentation 07/14/17 13:19 Patient will be admitted to the hospitalist service 07/14/17 13:36 07/14/17 13:37 Patient was started on antibiotics for probable aspiration from vomiting in the field, I believe the patient may have had vomiting and caused himself to become tired out and unresponsive - Vital Signs Vital signs: Temp Pulse Resp BP Pulse Ox 98 F 95 16 139/90 H 95 07/14/17 11:25 07/14/17 13:34 07/14/17 13:34 07/14/17 12:15 07/14/17 13:34 - Laboratory Result Diagrams: 07/14/17 10:15 07/14/17 10:15 Laboratory results interpreted by me: 07/14/17 07/14/17 07/14/17 10:15 10:15 10:15 RBC 5.65 H RDW 15.2 H Sodium 146.2 H Chloride 108 H Glucose 116 H Creatine Kinase 1407 H CK-MB (CK-2) 5.90 H - Diagnostic Test Radiology reviewed: Image reviewed - chest x ray no acute abnormality, Reports reviewed - EKG Interpretation by Me EKG shows normal: Sinus rhythm, [place], Intervals, QRS Complexes Critical Care Note - Critical Care Note Total time excluding time spent on procedures (mins): 80 Comments: 80 minutes of critical care time spent in direct contact evaluating and reevaluating the patient, treating symptoms, reviewing labs and studies and speaking with family and consultants excluding any procedures Discharge - Discharge Clinical Impression: Altered mental status Qualifiers: Altered mental status type: coma Coma depth: [place] coma 3-8 Coma timing: unspecified coma timing Qualified Code(s): R40.2430 - Mitchell coma scale score 3 -8, unspecified time Aspiration into airway Qualifiers: Encounter type: initial encounter Qualified Code(s): T17.908A - Unspecified foreign body in respiratory tract, part unspecified causing other injury, initial encounter Condition: Critical Disposition: ADMITTED INPATIENT Admitting Provider: Hospitalist Unit Admitted: ICU
[2017-07-14] MEDS ORDERED: METOCLOPRAMIDE HCL INJ/PF 10 MG/2 ML SDV ONE (11:18)
--- NOTE | 2017-07-14 11:18 | RADIOLOGY REPORT (SQ) ---
EXAM DESCRIPTION: CHEST 2 VIEWS COMPLETED DATE/TIME: 07/14/2017 11:07 am REASON FOR STUDY: ams COMPARISON: 2016. TECHNIQUE: Frontal and lateral radiographic views of the chest acquired. NUMBER OF VIEWS: Two view. LIMITATIONS: Lateral view largely nondiagnostic due to positioning difficulties. FINDINGS: LUNGS AND PLEURA: Low lung volumes with associated vascular crowding. No suspicion of sig nificant pneumonia or CHF. No pneumothorax. MEDIASTINUM AND HILAR STRUCTURES: No masses or contour abnormalities. HEART AND VASCULAR STRUCTURES: Heart normal size. No evidence for failure. BONES: No acute findings. HARDWARE: None in the chest. OTHER: No other significant finding. IMPRESSION: Low lung volumes. Limited study. Doubt pneumonia or CHF. TECHNICAL DOCUMENTATION: JOB ID: [id number] [employer]- All Rights Reserved Reading location - IP/workstation name: [email or web address]
[2017-07-14 11:20] LABS: ABSOLUTE LYMPHOCYTES (AUTO) 2.2 10^3/uL (0.5-4.7); ABSOLUTE MONOCYTES (AUTO) 0.9 10^3/uL (0.1-1.4); ABSOLUTE NEUT (AUTO) 7.2 10^3/uL (1.7-8.2); BASOPHILS % (AUTO) 0.2 % (0-2); EOSINOPHILS % (AUTO) 0.2 % (0-6); HEMATOCRIT 46.2 % (37.9-51.0); LYMPHOCYTES % (AUTO) 21.3 % (13-45); MEAN CORPUSCULAR HEMOGLOBIN 28.3 pg (27.0-33.4); MEAN CORPUSCULAR HGB CONC 34.6 g/dL (32.0-36.0); MEAN CORPUSCULAR VOLUME 82 fl (80-97); MONOCYTES % (AUTO) 8.7 % (3-13); PLATELET COUNT 238 10^3/uL (150-450); RED BLOOD COUNT 5.65 10^6/uL (4.35-5.55); RED CELL DISTRIBUTION WIDTH 15.2 % (11.5-14.0); SEGMENTED NEUTROPHILS % (AUTO) 69.6 % (42-78); TOTAL CELLS COUNTED % (AUTO) 100 %; WHITE BLOOD COUNT 10.3 10^3/uL (4.0-10.5)
[2017-07-14 11:22] LABS: INTERNATIONAL RATION (INR) 0.94; PROTHROMBIN TIME 13.1 SEC (11.4-15.4)
[2017-07-14 11:23] LABS: PARTIAL THROMBOPLASTIN TIME 34.6 SEC (23.5-35.8)
[2017-07-14] MEDS ORDERED: METOCLOPRAMIDE HCL INJ/PF 10 MG/2 ML SDV IV ONE (11:31)
[2017-07-14 11:50] LABS: ALANINE AMINOTRANSFERASE 25 U/L (21-72); ALBUMIN 4.4 g/dL (3.5-5.0); ALKALINE PHOSPHATASE 84 U/L (38-126); ANION GAP 16 (5-19); ASPARTATE AMINO TRANSFERASE 42 U/L (17-59); BILIRUBIN,DIRECT 0.4 mg/dL (0.0-0.4); BILIRUBIN,TOTAL 0.4 mg/dL (0.2-1.3); BLOOD UREA NITROGEN 16 mg/dL (7-20); CALCIUM 10.2 mg/dL (8.4-10.2); CARBON DIOXIDE 22 mmol/L (22-30); CHLORIDE 108 mmol/L (98-107); CREATINE KINASE 1407 U/L (55-170); GLUCOSE 116 mg/dL (75-110); POTASSIUM 4.1 mmol/L (3.6-5.0); SODIUM 146.2 mmol/L (137-145); TOTAL PROTEIN 7.6 g/dL (6.3-8.2)
[2017-07-14 12:03] LABS: APPEARANCE,URINE CLEAR; BILIRUBIN,URINE NEGATIVE (NEGATIVE); COLOR,URINE YELLOW; GLUCOSE, URINE NEGATIVE (NEGATIVE); KETONES,URINE NEGATIVE (NEGATIVE); LEUKOCYTE ESTERASE,URINE NEGATIVE (NEGATIVE); NITRITE,URINE NEGATIVE (NEGATIVE); PROTEIN,URINE NEGATIVE (NEGATIVE); URINE SPECIFIC GRAVITY 1.009; UROBILINOGEN,URINE NEGATIVE mg/dL (<2.0)
[2017-07-14 12:04] LABS: TROPONIN I < 0.012 ng/mL
[2017-07-14] MEDS ORDERED: ETOMIDATE INJ/PF 20 MG/10 ML SDV IV ONE (12:49)
[2017-07-14] MEDS ORDERED: PROPOFOL 1,000 MG/100 ML INFUS..BTL IV ONE ×2 (13:03→15:45)
[2017-07-14] MEDS ORDERED: FENTANYL CITRATE INJ/PF 100 MCG/2 ML AMPUL ONE (13:21)
[2017-07-14] MEDS ORDERED: IPRATROPIUM/ALBUTEROL 0.5-2.5 MG/3 ML AMPUL NEB ONE ×2 (13:21→13:22)
[2017-07-14] MEDS ORDERED: AMPICILLIN SOD/SULBACTAM 3 GM VIAL IV ONE (13:21)
[2017-07-14] MEDS: FENTANYL CITRATE INJ/PF 100 MCG/2 ML AMPUL IV ONE (13:23)
--- NOTE | 2017-07-14 14:04 | RADIOLOGY REPORT (SQ) ---
EXAM DESCRIPTION: KUB/ABDOMEN (SINGLE VIEW) COMPLETED DATE/TIME: 07/14/2017 1:34 pm REASON FOR STUDY: post intubation/ OG TUBE PLACEMENT COMPARISON: 05/30/2016. FINDINGS: Single view of the lower chest and upper abdomen. Mildly limited by extensive overlying monitor lead artifacts. Distal aspect of the nasogastric tube is present, tip appears to lie in the distal esophagus. This s hould be further advanced out into the stomach. IMPRESSION: Nasogastric tube with tip in the distal esophagus. This should be advanced further into the stomach. TECHNICAL DOCUMENTATION: JOB ID: [id number] Reading location - IP/workstation name: [email or web address]
--- NOTE | 2017-07-14 14:05 | RADIOLOGY REPORT (SQ) ---
EXAM DESCRIPTION: CHEST SINGLE VIEW COMPLETED DATE/TIME: 07/14/2017 1:34 pm REASON FOR STUDY: post intubation COMPARISON: 07/14/2017 earlier. FINDINGS: Single-view AP portable semi upright chest image. Timed approximately 1322 hours. Appropriate endotracheal tube in place. Nasogastric tube probably barely projects within the stomach . Side hole is likely in the distal esophagus. The should be further advanced. IMPRESSION: Appropriate endotracheal tube. Nasogastric tube should be advanced further. TECHNICAL DOCUMENTATION: JOB ID: [id number] Reading location - IP/workstation name: [email or web address]
[2017-07-14] MEDS ORDERED: ONDANSETRON HCL INJ/PF 4 MG/2 ML SDV IV PRN (14:30)
[2017-07-14] MEDS ORDERED: SUCCINYLCHOLINE CHLORIDE INJ 200 MG/10 ML VIAL ONE (14:47)
--- NOTE | 2017-07-14 15:31 | PDOC H&P ---
History of Present Illness Admission Date/PCP: 07/14/17 13:26 KAY BRUSH MD Patient complains of: AMS, nausea and vomiting History of Present Illness: DONALD GARRIDO is a 42 year old male history of Hypertension Hyperlipidemia COPD Celiac disease Chronic back pain GERD Vitamin def BPH Schizophrenia Depression Anxiety disorder Chronic smoker Patient apparently is functional and lives alone. He was brought to the ED with altered mental status after neighbors checked on him and found him confused and altered. Apparently at baseline patient is alert and oriented 3. In the ED patient was found to have altered mental status but he was conscious and asking "where am I ?" He was also noted to possibly have a deficit in the left upper and left lower extremities. Head CT revealed no acute process. He subsequently started to vomit --apparently he also vomited on his way to the ED. Thick material was suctioned from his lungs. He respiratory status worsened and he was intubated. Of note is that initial chest x-ray was negative for acute process. Patient referred to the hospitalist service for admission. When I saw him, he was sedated, intubated, unresponsive and I am unable to obtain further history at this time. Past Medical History Cardiac Medical History: Reports: Hyperlipidema, Hypertension Denies: Coronary Artery Disease, Myocardial Infarction Pulmonary Medical History: Reports: Chronic Obstructive Pulmonary Disease (COPD) Denies: Asthma, Bronchitis, Pneumonia Neurological Medical History: Denies: Seizures GI Medical History: Reports: Gastroesophageal Reflux Disease Musculoskeltal Medical History: Denies: Arthritis Psychiatric Medical History: Reports: Bipolar Disorder, Depression Hematology: Denies: Anemia Infectious Medical History: Reports: Methicillin-Resistant Staph Aureus Past Surgical History Past Surgical History: Reports: Cholecystectomy, Orthopedic Surgery - 9 back surgeries, with lower abdominal midline incision. Social History Smoking Status: Never Smoker Frequency of Alcohol Use: None Hx Recreational Drug Use: No Drugs: None Hx Prescription Drug Abuse: No Family History Family History: None, Hypertension Parental Family History Reviewed: No Children Family History Reviewed: No Sibling(s) Family History Reviewed.: No Medication/Allergy Home Medications: Baclofen [Baclofen 10 mg Tablet] 10 mg PO QID 05/24/16 Benztropine Mesylate [Benztropine Mesylate 2 mg Tablet] 2 mg PO BID 05/24/16 Enalapril Maleate [Vasotec 10 mg Tablet] 10 mg PO DAILY 05/24/16 Esomeprazole Magnesium [Nexium] 40 mg PO DAILY 05/24/16 Fenofibrate Nanocrystallized [Fenofibrate] 145 mg PO DAILY 05/24/16 Fluoxetine HCl [Prozac] 80 mg PO DAILY 05/24/16 Haloperidol 10 mg PO QPM 05/24/16 Oxycodone HCl 15 mg PO Q6HP PRN 05/24/16 Oxycodone HCl [Oxycontin] 60 mg PO Q8 05/24/16 Tamsulosin HCl [Flomax 0.4 mg Cap.sr] 0.4 mg PO DAILY 05/24/16 Atorvastatin Calcium [Lipitor 10 mg Tablet] 10 mg PO QHS 07/14/17 Buspirone HCl [Buspar 10 mg Tablet] 10 mg PO TID 07/14/17 Gabapentin [Neurontin 300 mg Capsule] 300 mg PO Q12 07/14/17 Metoprolol Succinate [Toprol Xl] 50 mg PO DAILY 07/14/17 Midodrine HCl 10 mg PO DAILY 07/14/17 Umeclidinium Brm/Vilanterol Tr [Anoro Ellipta 62.5-25 Mcg INH] 1 puff IH DAILY 07/14/17 Allergies/Adverse Reactions: iodine [Iodine] Allergy (Intermediate, Verified 07/14/17 11:34) Blisters Shellfish * [Shellfish] Allergy (Intermediate, Verified 07/14/17 11:34) Blisters clonazepam [From Klonopin] Allergy (Verified 07/14/17 11:34) Blisters Review of Systems ROS unobtainable: Due to endotracheal tube, Due to mental status Physical Exam Vital Signs: Temp Pulse Resp BP Pulse Ox 98 F 95 24 H 116/81 95 07/14/17 11:25 07/14/17 13:34 07/14/17 13:45 07/14/17 13:45 07/14/17 13:45 Intake & Output 07/13/17 07/14/17 07/15/17 06:59 06:59 06:59 Output Total 1600 Balance -1600 GENERAL: Well-developed, no acute distress, intubated HEENT: Normocephalic/atraumatic NECK supple, no JVD CARDIOVASCULAR: RRR, normal S1-S2, no appreciable murmur LUNGS: CTA bilaterally ABDOMEN: Soft, NT, NL bowel sounds EXTREMITIES: No edema, clubbing, cyanosis NEUROLOGICAL: Unresponsive, unable to assess otherwise at this time due to not able to follow commands Results Laboratory Results: White blood cell 10.3, globin 16, platelets 238. Sodium 146, potassium 4.1, chloride 108, CO2 22, BUN 16, creatinine 1.02, glucose 116. 07/14/17 07/14/17 07/14/17 10:15 10:15 10:15 RBC 5.65 H RDW 15.2 H Sodium 146.2 H Chloride 108 H Glucose 116 H Creatine Kinase 1407 H CK-MB (CK-2) 5.90 H Impressions: Head CT 07/14/17 10:50 IMPRESSION: NORMAL BRAIN CT WITHOUT CONTRAST. EVIDENCE OF ACUTE STROKE: NO. Chest X-Ray 07/14/17 13:16 IMPRESSION: Appropriate endotracheal tube. Nasogastric tube should be advanced further. KUB X-Ray 07/14/17 13:16 IMPRESSION: Nasogastric tube with tip in the distal esophagus. This should be advanced further into the stomach. Assessment & Plan - Diagnosis (1) Altered mental status Qualifiers: Altered mental status type: coma Coma depth: [place] coma 3-8 Coma timing : unspecified coma timing Qualified Code(s): R40.2430 - [place] coma scale score 3-8, unspecified time Plan: Unsure of etiology at this time. Will consider MRI to rule out CVA. Patient's preliminary urine drug screen is positive for opiates most of this is contributory to altered mental status. LFTs normal, but will recheck ammonia level. Will reevaluate patient after he is off sedation. We will monitor patient. (2) Aspiration into airway Qualifiers: Encounter type: initial encounter Qualified Code(s): T17.908A - Unspecified foreign body in respiratory tract, part unspecified causing other injury, initial encounter Plan: Patient have aspiration pneumonia. Will treat with antiemetics. Follow blood culture results. Patient received a dose of Unasyn in the ED. Will continue for now. Follow-up chest x-ray in a.m. Continue to monitor patient. (3) Acute respiratory failure Qualifiers: Respiratory failure complication: unspecified whether with hypoxia or hypercapnia Qualified Code(s): J96.00 - Acute respiratory failure, unspecified whether with hypoxia or hypercapnia Is this a current diagnosis for this admission?: Yes Plan: Likely secondary to aspiration into airway. Patient currently intubated. Dr. Lebron of pulmonology consult. (4) Hypertension Qualifiers: Hypertension type: essential hypertension Qualified Code(s): I10 - Essential (primary) hypertension Is this a current diagnosis for this admission?: Yes Plan: Will monitor and treat as needed. (5) Schizophrenia Qualifiers: Schizophrenia type: unspecified Qualified Code(s): F20.9 - Schizophrenia, unspecified Is this a current diagnosis for this admission?: Yes Plan: Patient apparently with history of schizophrenia. Will make every effort to quickly resume medications after they have been reconciled. - Time Time Spent: Greater than 70 Minutes - Inpatient Certification Based on my medical assessment, after consideration of the patient's comorbidities, presenting symptoms, or acuity I expect that the services needed warrant INPATIENT care.: Yes I certify that my determination is in accordance with my understanding of Medicare's requirements for reasonable and necessary INPATIENT services [42 CFR 412.3e].: Yes Medical Necessity: Significant Comorbidiites Make Outpatient Treatment Too Risky , Need Close Monitoring Due to Risk of Patient Decompensation, Need For IV Fluids, Need For Continuous Telemetry Monitoring, Need for Neurological Checks
--- NOTE | 2017-07-14 16:20 | EKG REPORT ---
SEVERITY:- ABNORMAL ECG - SINUS RHYTHM PROBABLE LEFT ATRIAL ABNORMALITY LAD, CONSIDER LAFB BORDERLINE PROLONGED QT INTERVAL : Confirmed by: Irene Lopez MD 14-Jul-2017 16:20:06
[2017-07-14] MEDS: DEXTROSE 5%-NORMAL SALINE 1,000 ML IV PRN (17:04)
[2017-07-14 17:19] LABS: ARTERIAL BLOOD BASE EXCESS 2.3 mmol/L; ARTERIAL BLOOD H2CO3 1.18 mmol/L (1.05-1.35); ARTERIAL BLOOD HCO3 26.4 mmol/L (20-26); ARTERIAL BLOOD O2 SATURATION 96.9 % (94-98); ARTERIAL BLOOD PCO2 39.2 mmHg (35-45); ARTERIAL BLOOD PH 7.45 (7.35-7.45); ARTERIAL BLOOD PO2 86.4 mmHg (80-100); ARTERIAL BLOOD TOTAL CO2 27.6 mmol/L (23-27)
[2017-07-14 17:20] LABS: ARTERIAL BLOOD FIO2 50%
[2017-07-14 17:27] LABS: APPEARANCE,URINE CLEAR; BILIRUBIN,URINE NEGATIVE (NEGATIVE); COLOR,URINE STRAW; GLUCOSE, URINE NEGATIVE (NEGATIVE); KETONES,URINE NEGATIVE (NEGATIVE); LEUKOCYTE ESTERASE,URINE NEGATIVE (NEGATIVE); NITRITE,URINE NEGATIVE (NEGATIVE); PROTEIN,URINE NEGATIVE (NEGATIVE); URINE SPECIFIC GRAVITY 1.004; UROBILINOGEN,URINE NEGATIVE mg/dL (<2.0)
[2017-07-14] MEDS ORDERED: AMPICILLIN SOD/SULBACTAM 3 GM VIAL ONE (17:36)
[2017-07-14] MEDS: AMPICILLIN SODIUM/SULBACTAM NA 3 GM in NORMAL SALINE 100 ML IV SCH ×2 (18:16→23:21)
[2017-07-14] MEDS: PROPOFOL 1,000 MG/100 ML INFUS..BTL IV PRN ×2 (18:17→22:33)
[2017-07-14 18:47] LABS: ARTERIAL BLOOD BASE EXCESS 1.5 mmol/L; ARTERIAL BLOOD H2CO3 1.11 mmol/L (1.05-1.35); ARTERIAL BLOOD HCO3 25.2 mmol/L (20-26); ARTERIAL BLOOD PCO2 36.8 mmHg (35-45); ARTERIAL BLOOD PH 7.45 (7.35-7.45); ARTERIAL BLOOD TOTAL CO2 26.3 mmol/L (23-27)
[2017-07-14 18:48] LABS: ARTERIAL BLOOD FIO2 50%
[2017-07-14 19:18] LABS: URINE AMPHETAMINES SCREEN NEGATIVE; URINE BARBITURATES SCREEN NEGATIVE; URINE COCAINE SCREEN NEGATIVE; URINE MARIJUANA (THC) SCREEN NEGATIVE; URINE METHADONE SCREEN NEGATIVE; URINE PHENCYCLIDINE SCREEN NEGATIVE
[2017-07-14 20:37] LABS: URINE BENZODIAZEPINES SCREEN UNCONFIRMED POSITIVE
[2017-07-14] MEDS: FAMOTIDINE INJ/PF 20 MG/2 ML SDV IV SCH (21:20)
[2017-07-14] MEDS ORDERED: ACETAMINOPHEN 650 MG SUPP.RECT PR ONE (23:56)
[2017-07-15] MEDS: DEXTROSE 5%-NORMAL SALINE 1,000 ML IV PRN (01:56)
[2017-07-15] MEDS: PROPOFOL 1,000 MG/100 ML INFUS..BTL IV PRN ×7 (01:57→21:43)
[2017-07-15] MEDS ORDERED: ACETAMINOPHEN 650 MG SUPP.RECT PR PRN (03:51)
[2017-07-15 04:13] LABS: ABSOLUTE LYMPHOCYTES (AUTO) 2.1 10^3/uL (0.5-4.7); ABSOLUTE MONOCYTES (AUTO) 0.8 10^3/uL (0.1-1.4); ABSOLUTE NEUT (AUTO) 6.2 10^3/uL (1.7-8.2); BASOPHILS % (AUTO) 0.4 % (0-2); EOSINOPHILS % (AUTO) 0.3 % (0-6); HEMATOCRIT 40.2 % (37.9-51.0); LYMPHOCYTES % (AUTO) 23.2 % (13-45); MEAN CORPUSCULAR HEMOGLOBIN 28.1 pg (27.0-33.4); MEAN CORPUSCULAR HGB CONC 34.1 g/dL (32.0-36.0); MEAN CORPUSCULAR VOLUME 83 fl (80-97); MONOCYTES % (AUTO) 8.9 % (3-13); PLATELET COUNT 224 10^3/uL (150-450); RED BLOOD COUNT 4.87 10^6/uL (4.35-5.55); RED CELL DISTRIBUTION WIDTH 15.1 % (11.5-14.0); SEGMENTED NEUTROPHILS % (AUTO) 67.2 % (42-78); TOTAL CELLS COUNTED % (AUTO) 100 %; WHITE BLOOD COUNT 9.2 10^3/uL (4.0-10.5)
[2017-07-15 04:41] LABS: ALANINE AMINOTRANSFERASE 28 U/L (21-72); ALBUMIN 3.5 g/dL (3.5-5.0); ALKALINE PHOSPHATASE 58 U/L (38-126); ANION GAP 14 (5-19); ASPARTATE AMINO TRANSFERASE 51 U/L (17-59); BILIRUBIN,DIRECT 0.2 mg/dL (0.0-0.4); BILIRUBIN,TOTAL 0.2 mg/dL (0.2-1.3); BLOOD UREA NITROGEN 13 mg/dL (7-20); CALCIUM 8.5 mg/dL (8.4-10.2); CARBON DIOXIDE 25 mmol/L (22-30); CHLORIDE 113 mmol/L (98-107); GLUCOSE 135 mg/dL (75-110); POTASSIUM 3.6 mmol/L (3.6-5.0); SODIUM 151.5 mmol/L (137-145); TOTAL PROTEIN 6.1 g/dL (6.3-8.2)
[2017-07-15 04:51] LABS: CREATINE KINASE 3071 U/L (55-170)
[2017-07-15 05:03] LABS: ARTERIAL BLOOD BASE EXCESS 6.6 mmol/L; ARTERIAL BLOOD HCO3 30.9 mmol/L (20-26); ARTERIAL BLOOD O2 SATURATION 96.5 % (94-98); ARTERIAL BLOOD PCO2 43.2 mmHg (35-45); ARTERIAL BLOOD PH 7.47 (7.35-7.45); ARTERIAL BLOOD PO2 81.1 mmHg (80-100); ARTERIAL BLOOD TOTAL CO2 32.3 mmol/L (23-27)
[2017-07-15 05:05] LABS: ARTERIAL BLOOD FIO2 40%
[2017-07-15 05:07] LABS: HEMOGLOBIN 13.7 g/dL (13.5-17.0)
[2017-07-15] MEDS: AMPICILLIN SODIUM/SULBACTAM NA 3 GM in NORMAL SALINE 100 ML IV SCH ×4 (05:23→23:56)
--- NOTE | 2017-07-15 06:22 | RADIOLOGY REPORT (SQ) ---
EXAM DESCRIPTION: XR CHEST 1 VIEW COMPLETED DATE/TME: 07/15/2017 06:00 CLINICAL HISTORY: 42 years Male, Acute respiratory failure COMPARISON: One day prior. NUMBER OF VIEWS/TECHNIQUE: 1/AP FINDINGS: Prominent interstitium, normal cardiac silhouette, endotracheal tube tip is 8.3 cm from the eva; consider advancing the endotracheal tube by 3 cm. Adequate appearing enteric tube obscured distally. No pneumothorax. No acute bone defect. IMPRESSION: Endotracheal tube tip is 8.3 cm from the eva; consider advancing the endotracheal tube by 3 cm.
[2017-07-15] MEDS: ENOXAPARIN SODIUM INJ 40 MG/0.4 ML DISP.SYRIN SUBCUT SCH (09:41)
[2017-07-15] MEDS: FAMOTIDINE INJ/PF 20 MG/2 ML SDV IV SCH ×2 (09:41→21:43)
[2017-07-15] MEDS: NYSTATIN TOPICAL POWDER 15 GM TP SCH ×2 (09:56→17:03)
--- NOTE | 2017-07-15 14:10 | PDOC PROGRESS REPORT ---
Subjective Progress Note for:: 07/15/17 Subjective:: Patient remains intubated in the ICU. Currently sedated and unresponsive. No acute events reported overnight. Reason For Visit: AMS,ACUTE RESP FAILURE,POSSIBLE ASPIRATION Physical Exam Vital Signs: Temp Pulse Resp BP Pulse Ox 99.3 F 84 23 H 107/74 97 07/15/17 10:03 07/15/17 10:00 07/15/17 10:03 07/15/17 10:03 07/15/17 12:00 Intake & Output 07/14/17 07/15/17 07/16/17 06:59 06:59 06:59 Intake Total 2137 Output Total 3405 185 Balance -1268 -185 Weight 97.2 kg GEN: NAD, intubated CV: RRR, NL S1S2 LUNGS: CTA bilaterally ABDOMEN Soft, NT, +BS EXTERMITIES: No e/c/c NEURO: sedated, unresponsive at this time Results Laboratory Results: 07/15/17 03:46 07/15/17 03:46 07/14/17 07/14/17 07/14/17 16:46 16:46 18:30 WBC RBC Hgb Hct MCV MCH MCHC RDW Plt Count Seg Neutrophils % Lymphocytes % Monocytes % Eosinophils % Basophils % Absolute Neutrophils Absolute Lymphocytes Absolute Monocytes Absolute Eosinophils Absolute Basophils Carbonic Acid 1.18 1.11 HCO3/H2CO3 Ratio 22:1 22:1 ABG pH 7.45 7.45 ABG pCO2 39.2 36.8 ABG pO2 86.4 87.0 ABG HCO3 26.4 H 25.2 ABG O2 Saturation 96.9 97.0 ABG Base Excess 2.3 1.5 FiO2 50% 50% Sodium Potassium Chloride Carbon Dioxide Anion Gap BUN Creatinine Est GFR ( Amer) Est GFR (Non-Af Amer) Glucose Lactic Acid Calcium Magnesium Total Bilirubin AST ALT Alkaline Phosphatase Total Protein Albumin Urine Color STRAW Urine Appearance CLEAR Urine pH 6.0 Ur Specific [place] 1.004 Urine Protein NEGATIVE Urine Glucose (UA) NEGATIVE Urine Ketones NEGATIVE Urine Blood NEGATIVE Urine Nitrite NEGATIVE Ur Leukocyte Esterase NEGATIVE Urine WBC (Auto) 0 07/15/17 07/15/17 07/15/17 03:46 03:46 03:46 WBC 9.2 RBC 4.87 Hgb 13.7 D Hct 40.2 MCV 83 MCH 28.1 MCHC 34.1 RDW 15.1 H Plt Count 224 Seg Neutrophils % 67.2 Lymphocytes % 23.2 Monocytes % 8.9 Eosinophils % 0.3 Basophils % 0.4 Absolute Neutrophils 6.2 Absolute Lymphocytes 2.1 Absolute Monocytes 0.8 Absolute Eosinophils 0.0 Absolute Basophils 0.0 Carbonic Acid HCO3/H2CO3 Ratio ABG pH ABG pCO2 ABG pO2 ABG HCO3 ABG O2 Saturation ABG Base Excess FiO2 Sodium 151.5 H Potassium 3.6 Chloride 113 H Carbon Dioxide 25 Anion Gap 14 BUN 13 Creatinine 0.87 Est GFR ( Amer) > 60 Est GFR (Non-Af Amer) > 60 Glucose 135 H Lactic Acid 1.4 Calcium 8.5 Magnesium 1.9 Total Bilirubin 0.2 AST 51 ALT 28 Alkaline Phosphatase 58 Total Protein 6.1 L Albumin 3.5 Urine Color Urine Appearance Urine pH Ur Specific [place] Urine Protein Urine Glucose (UA) Urine Ketones Urine Blood Urine Nitrite Ur Leukocyte Esterase Urine WBC (Auto) 07/15/17 04:50 WBC RBC Hgb Hct MCV MCH MCHC RDW Plt Count Seg Neutrophils % Lymphocytes % Monocytes % Eosinophils % Basophils % Absolute Neutrophils Absolute Lymphocytes Absolute Monocytes Absolute Eosinophils Absolute Basophils Carbonic Acid 1.30 HCO3/H2CO3 Ratio 23:1 ABG pH 7.47 H ABG pCO2 43.2 ABG pO2 81.1 ABG HCO3 30.9 H ABG O2 Saturation 96.5 ABG Base Excess 6.6 FiO2 40% Sodium Potassium Chloride Carbon Dioxide Anion Gap BUN Creatinine Est GFR ( Amer) Est GFR (Non-Af Amer) Glucose Lactic Acid Calcium Magnesium Total Bilirubin AST ALT Alkaline Phosphatase Total Protein Albumin Urine Color Urine Appearance Urine pH Ur Specific [place] Urine Protein Urine Glucose (UA) Urine Ketones Urine Blood Urine Nitrite Ur Leukocyte Esterase Urine WBC (Auto) 07/15/17 07/15/17 03:46 03:46 Creatine Kinase 3071 H NT-Pro-B Natriuret Pep 736 H Impressions: Head CT 07/14/17 10:50 IMPRESSION: NORMAL BRAIN CT WITHOUT CONTRAST. EVIDENCE OF ACUTE STROKE: NO. KUB X-Ray 07/14/17 13:16 IMPRESSION: Nasogastric tube with tip in the distal esophagus. This should be advanced further into the stomach. Chest X-Ray 07/15/17 06:00 IMPRESSION: Endotracheal tube tip is 8.3 cm from the eva; consider advancing the endotracheal tube by 3 cm. Assessment & Plan - Diagnosis (1) Altered mental status Qualifiers: Altered mental status type: coma Coma depth: [place] coma 3-8 Coma timing : unspecified coma timing Qualified Code(s): R40.2430 - [place] coma scale score 3-8, unspecified time Is this a current diagnosis for this admission?: Yes Plan: Unsure of etiology at this time. Consider MRI to rule out CVA if no apparent improvement or when patient is more stable. Patient's preliminary urine drug screen is positive for opiates which may have contributed to altered mental status. LFTs normal, as is his ammonia level. Will reevaluate patient after he is off sedation. We will continue to monitor patient. (2) Aspiration into airway Qualifiers: Encounter type: initial encounter Qualified Code(s): T17.908A - Unspecified foreign body in respiratory tract, part unspecified causing other injury, initial encounter Is this a current diagnosis for this admission?: Yes Plan: Patient likely aspirated into airways. Will treat nausea with antiemetics as needed. Follow blood culture results. Patient received a dose of Unasyn in the ED and this was continued. Continue to follow chest x-ray while intubated. Continue to monitor patient. (3) Acute respiratory failure Is this a current diagnosis for this admission?: Yes Plan: Likely secondary to aspiration into airway. Patient currently intubated. Dr. Lebron of pulmonology evaluation appreciated. Weaning off ventilation as soon as possible. (4) Hypertension Qualifiers: Hypertension type: essential hypertension Qualified Code(s): I10 - Essential (primary) hypertension Is this a current diagnosis for this admission?: Yes Plan: Will monitor and treat as needed. (5) Schizophrenia Qualifiers: Schizophrenia type: unspecified Qualified Code(s): F20.9 - Schizophrenia, unspecified Is this a current diagnosis for this admission?: Yes Plan: Patient apparently with history of schizophrenia. Will make every effort to quickly resume medications as soon as possible. (6) Hypernatremia Is this a current diagnosis for this admission?: Yes Plan: Sodium elevated at 151 today. Will change IV fluids to D5 1/2 NS and continue out 125 mg/h for now. (7) Rhabdomyolysis Is this a current diagnosis for this admission?: Yes Plan: Not sure how long patient was on the floor. He was found confused by neighbors. CPK was elevated, and still rising today. Will continue IV fluids. - Time Total Critical Time (Minutes): 40
[2017-07-15] MEDS: DEXTROSE 5%-1/2 NORMAL SALINE 1,000 ML IV PRN (18:05)
[2017-07-16] MEDS: PROPOFOL 1,000 MG/100 ML INFUS..BTL IV PRN ×5 (04:27→22:12)
[2017-07-16 04:52] LABS: ABSOLUTE EOSINOPHILS # (AUTO) 0.1 10^3/uL (0.0-0.6); ABSOLUTE LYMPHOCYTES (AUTO) 1.8 10^3/uL (0.5-4.7); ABSOLUTE MONOCYTES (AUTO) 0.6 10^3/uL (0.1-1.4); ABSOLUTE NEUT (AUTO) 1.9 10^3/uL (1.7-8.2); BASOPHILS % (AUTO) 0.6 % (0-2); EOSINOPHILS % (AUTO) 1.6 % (0-6); HEMATOCRIT 39.2 % (37.9-51.0); HEMOGLOBIN 13.2 g/dL (13.5-17.0); LYMPHOCYTES % (AUTO) 41.1 % (13-45); MEAN CORPUSCULAR HEMOGLOBIN 27.8 pg (27.0-33.4); MEAN CORPUSCULAR HGB CONC 33.7 g/dL (32.0-36.0); MEAN CORPUSCULAR VOLUME 82 fl (80-97); MONOCYTES % (AUTO) 13.2 % (3-13); PLATELET COUNT 206 10^3/uL (150-450); RED BLOOD COUNT 4.75 10^6/uL (4.35-5.55); RED CELL DISTRIBUTION WIDTH 15.6 % (11.5-14.0); SEGMENTED NEUTROPHILS % (AUTO) 43.5 % (42-78); TOTAL CELLS COUNTED % (AUTO) 100 %; WHITE BLOOD COUNT 4.4 10^3/uL (4.0-10.5)
[2017-07-16] MEDS: AMPICILLIN SODIUM/SULBACTAM NA 3 GM in NORMAL SALINE 100 ML IV SCH ×4 (05:01→23:53)
[2017-07-16 05:05] LABS: ARTERIAL BLOOD BASE EXCESS 3.7 mmol/L; ARTERIAL BLOOD FIO2 30%; ARTERIAL BLOOD H2CO3 1.18 mmol/L (1.05-1.35); ARTERIAL BLOOD HCO3 27.6 mmol/L (20-26); ARTERIAL BLOOD O2 SATURATION 94.5 % (94-98); ARTERIAL BLOOD PCO2 39.3 mmHg (35-45); ARTERIAL BLOOD PH 7.46 (7.35-7.45); ARTERIAL BLOOD PO2 67.7 mmHg (80-100); ARTERIAL BLOOD TOTAL CO2 28.8 mmol/L (23-27)
[2017-07-16 05:21] LABS: ALANINE AMINOTRANSFERASE 27 U/L (21-72); ALBUMIN 3.2 g/dL (3.5-5.0); ALKALINE PHOSPHATASE 54 U/L (38-126); ANION GAP 11 (5-19); ASPARTATE AMINO TRANSFERASE 37 U/L (17-59); BLOOD UREA NITROGEN 11 mg/dL (7-20); CALCIUM 8.8 mg/dL (8.4-10.2); CARBON DIOXIDE 27 mmol/L (22-30); CHLORIDE 112 mmol/L (98-107); GLUCOSE 116 mg/dL (75-110); POTASSIUM 3.1 mmol/L (3.6-5.0); SODIUM 150.3 mmol/L (137-145); TOTAL PROTEIN 5.9 g/dL (6.3-8.2)
[2017-07-16 05:22] LABS: BILIRUBIN,TOTAL < 0.1 mg/dL (0.2-1.3)
--- NOTE | 2017-07-16 06:18 | RADIOLOGY REPORT (SQ) ---
EXAM DESCRIPTION: XR CHEST 1 VIEW COMPLETED DATE/TME: 07/16/2017 06:00 CLINICAL HISTORY: 42 years Male, Acute respiratory failure COMPARISON: One day prior. NUMBER OF VIEWS/TECHNIQUE: 1/AP FINDINGS: Endotracheal tube tip is 7.3 cm from the eva, likely adequate enteric tube obscured distally, prominent interstitium, normal cardiac silhouette. No pneumothorax. No acute bone defect. IMPRESSION: No significant change.
[2017-07-16 10:16] LABS: PHOSPHORUS 4.1 mg/dL (2.5-4.5)
--- NOTE | 2017-07-16 10:27 | PDOC PROGRESS REPORT ---
Subjective Progress Note for:: 07/16/17 Subjective:: Intubated and sedated Reason For Visit: AMS,ACUTE RESP FAILURE,POSSIBLE ASPIRATION Physical Exam Vital Signs: Temp Pulse Resp BP Pulse Ox 97.3 F 70 19 108/73 96 07/16/17 08:00 07/16/17 08:00 07/16/17 08:00 07/16/17 08:00 07/16/17 08:00 Intake & Output 07/15/17 07/16/17 07/17/17 06:59 06:59 06:59 Intake Total 2137 4306 Output Total 3405 1005 Balance -1268 3301 Weight 97.2 kg 99.7 kg General appearance: PRESENT: no acute distress, disheveled, thin, well-developed , well-nourished. ABSENT: cooperative Head exam: PRESENT: atraumatic, normocephalic Eye exam: PRESENT: conjunctiva pale. ABSENT: EOMI, nystagmus, periorbital swelling, scleral icterus Mouth exam: PRESENT: dry mucosa, neck supple, tongue midline, other - ET tube in place Neck exam: ABSENT: carotid bruit, JVD, lymphadenopathy, thyromegaly, tracheal deviation, tracheostomy Respiratory exam: PRESENT: decreased breath sounds, prolonged expiratory phas, rales, rhonchi, unlabored. ABSENT: retraction, stridor Cardiovascular exam: PRESENT: RRR, +S1, +S2, tachycardia Pulses: PRESENT: normal radial pulses GI/Abdominal exam: PRESENT: diminished bowel sounds, soft Gentrourinary exam: PRESENT: indwelling catheter Extremities exam: ABSENT: calf tenderness, clubbing, joint swelling Musculoskeletal exam: ABSENT: deformity, dislocation Neurological exam: ABSENT: awake, oriented to person Skin exam: PRESENT: dry, warm Results Laboratory Results: 07/16/17 04:23 07/16/17 04:23 07/15/17 07/16/17 07/16/17 14:42 04:23 04:23 WBC 4.4 RBC 4.75 Hgb 13.2 L Hct 39.2 MCV 82 MCH 27.8 MCHC 33.7 RDW 15.6 H Plt Count 206 Seg Neutrophils % 43.5 Lymphocytes % 41.1 Monocytes % 13.2 H Eosinophils % 1.6 Basophils % 0.6 Absolute Neutrophils 1.9 Absolute Lymphocytes 1.8 Absolute Monocytes 0.6 Absolute Eosinophils 0.1 Absolute Basophils 0.0 Carbonic Acid HCO3/H2CO3 Ratio ABG pH ABG pCO2 ABG pO2 ABG HCO3 ABG O2 Saturation ABG Base Excess FiO2 Sodium Potassium Chloride Carbon Dioxide Anion Gap BUN Creatinine Est GFR ( Amer) Est GFR (Non-Af Amer) Glucose Calcium Magnesium 1.9 Total Bilirubin AST ALT Alkaline Phosphatase Ammonia 17.9 Total Protein Albumin 07/16/17 07/16/17 04:23 04:45 WBC RBC Hgb Hct MCV MCH MCHC RDW Plt Count Seg Neutrophils % Lymphocytes % Monocytes % Eosinophils % Basophils % Absolute Neutrophils Absolute Lymphocytes Absolute Monocytes Absolute Eosinophils Absolute Basophils Carbonic Acid 1.18 HCO3/H2CO3 Ratio 23:1 ABG pH 7.46 H ABG pCO2 39.3 ABG pO2 67.7 L ABG HCO3 27.6 H ABG O2 Saturation 94.5 ABG Base Excess 3.7 FiO2 30% Sodium 150.3 H Potassium 3.1 L Chloride 112 H Carbon Dioxide 27 Anion Gap 11 BUN 11 Creatinine 0.74 Est GFR ( Amer) > 60 Est GFR (Non-Af Amer) > 60 Glucose 116 H Calcium 8.8 Magnesium Total Bilirubin < 0.1 L AST 37 ALT 27 Alkaline Phosphatase 54 Ammonia Total Protein 5.9 L Albumin 3.2 L 07/15/17 07/15/17 03:46 03:46 Creatine Kinase 3071 H NT-Pro-B Natriuret Pep 736 H Impressions: Head CT 07/14/17 10:50 IMPRESSION: NORMAL BRAIN CT WITHOUT CONTRAST. EVIDENCE OF ACUTE STROKE: NO. KUB X-Ray 07/14/17 13:16 IMPRESSION: Nasogastric tube with tip in the distal esophagus. This should be advanced further into the stomach. Chest X-Ray 07/16/17 06:00 IMPRESSION: No significant change. Assessment & Plan - Diagnosis (1) Acute respiratory failure Is this a current diagnosis for this admission?: Yes Plan: Stable at this time (2) Altered mental status Qualifiers: Altered mental status type: coma Coma depth: [place] coma 3-8 Coma timing : unspecified coma timing Qualified Code(s): R40.2430 - [place] coma scale score 3-8, unspecified time Is this a current diagnosis for this admission?: Yes (3) Aspiration into airway Qualifiers: Encounter type: initial encounter Qualified Code(s): T17.908A - Unspecified foreign body in respiratory tract, part unspecified causing other injury, initial encounter Is this a current diagnosis for this admission?: Yes (4) Anxiety and depression Is this a current diagnosis for this admission?: Yes Plan: Resume home meds this time (5) Bipolar disorder Qualifiers: Active/Remission status: remission status unspecified Qualified Code(s): F31.9 - Bipolar disorder, unspecified Is this a current diagnosis for this admission?: Yes (6) GERD (gastroesophageal reflux disease) Qualifiers: Esophagitis presence: without esophagitis Qualified Code(s): K21.9 - Gastro -esophageal reflux disease without esophagitis Is this a current diagnosis for this admission?: Yes - Time Total Critical Time (Minutes): 40
--- NOTE | 2017-07-16 10:28 | PDOC CONSULTATION ---
Consultation Consult Date: 07/14/17 Attending physician:: HAJA SANCHEZ History of Present Illness Admission Date/PCP: 07/14/17 13:26 KAY BRUSH MD History of Present Illness: DONALD GARRIDO is a 42 year old male,multiple medical problembrought to ED altered mental status begain to vomit unable to protect airway now in ICU intubated and sedated Past Medical History Cardiac Medical History: Reports: Hyperlipidema, Hypertension Denies: Coronary Artery Disease, Myocardial Infarction Pulmonary Medical History: Reports: Chronic Obstructive Pulmonary Disease (COPD) Denies: Asthma, Bronchitis, Pneumonia Neurological Medical History: Denies: Seizures GI Medical History: Reports: Gastroesophageal Reflux Disease Musculoskeltal Medical History: Denies: Arthritis Psychiatric Medical History: Reports: Bipolar Disorder, Depression Hematology: Denies: Anemia Infectious Medical History: Reports: Methicillin-Resistant Staph Aureus Past Surgical History Past Surgical History: Reports: Cholecystectomy, Orthopedic Surgery - 9 back surgeries, with lower abdominal midline incision. Social History Information Source: [facility] Records Smoking Status: Unknown if Ever Smoked Frequency of Alcohol Use: None Hx Recreational Drug Use: No Drugs: None Hx Prescription Drug Abuse: No - Advance Directive Resuscitation Status: Full Code Family History Family History: Hypertension Parental Family History Reviewed: No Children Family History Reviewed: No Sibling(s) Family History Reviewed.: No Medication/Allergy Home Medications: Baclofen [Baclofen 10 mg Tablet] 10 mg PO QID 05/24/16 Benztropine Mesylate [Benztropine Mesylate 2 mg Tablet] 2 mg PO BID 05/24/16 Enalapril Maleate [Vasotec 10 mg Tablet] 10 mg PO DAILY 05/24/16 Esomeprazole Magnesium [Nexium] 40 mg PO DAILY 05/24/16 Fenofibrate Nanocrystallized [Fenofibrate] 145 mg PO DAILY 05/24/16 Fluoxetine HCl [Prozac] 80 mg PO DAILY 05/24/16 Haloperidol 10 mg PO QPM 05/24/16 Oxycodone HCl 15 mg PO Q6HP PRN 05/24/16 Oxycodone HCl [Oxycontin] 60 mg PO Q8 05/24/16 Tamsulosin HCl [Flomax 0.4 mg Cap.sr] 0.4 mg PO DAILY 05/24/16 Atorvastatin Calcium [Lipitor 10 mg Tablet] 10 mg PO QHS 07/14/17 Buspirone HCl [Buspar 10 mg Tablet] 10 mg PO TID 07/14/17 Gabapentin [Neurontin 300 mg Capsule] 300 mg PO Q12 07/14/17 Metoprolol Succinate [Toprol Xl] 50 mg PO DAILY 07/14/17 Midodrine HCl 10 mg PO DAILY 07/14/17 Umeclidinium Brm/Vilanterol Tr [Anoro Ellipta 62.5-25 Mcg INH] 1 puff IH DAILY 07/14/17 Allergies/Adverse Reactions: iodine [Iodine] Allergy (Intermediate, Verified 07/14/17 11:34) Blisters Shellfish * [Shellfish] Allergy (Intermediate, Verified 07/14/17 11:34) Blisters clonazepam [From Klonopin] Allergy (Verified 07/14/17 11:34) Blisters Review of Systems ROS unobtainable: Due to endotracheal tube, Due to mental status Physical Exam Vital Signs: Temp Pulse Resp BP Pulse Ox 99.3 F 98 24 H 110/79 98 07/14/17 19:39 07/14/17 19:46 07/14/17 18:03 07/14/17 18:03 07/14/17 20:10 Intake & Output 07/13/17 07/14/17 07/15/17 06:59 06:59 06:59 Output Total 2555 Balance -2555 Weight 97.6 kg General appearance: PRESENT: no acute distress, disheveled, obese. ABSENT: cooperative Head exam: PRESENT: atraumatic, normocephalic Eye exam: PRESENT: conjunctiva pale. ABSENT: EOMI, nystagmus, periorbital swelling, scleral icterus Mouth exam: PRESENT: dry mucosa, neck supple, tongue midline, other - ET tube in place Neck exam: ABSENT: carotid bruit, JVD, lymphadenopathy, thyromegaly, tracheal deviation, tracheostomy Respiratory exam: PRESENT: decreased breath sounds, prolonged expiratory phas, rales, rhonchi, tachypnea, unlabored, wheezes. ABSENT: retraction, stridor Cardiovascular exam: PRESENT: RRR, +S1, +S2, tachycardia Pulses: PRESENT: normal radial pulses GI/Abdominal exam: PRESENT: diminished bowel sounds, soft Gentrourinary exam: PRESENT: indwelling catheter Extremities exam: ABSENT: clubbing, full ROM, joint swelling Musculoskeletal exam: ABSENT: deformity, dislocation Neurological exam: ABSENT: awake, oriented to person Skin exam: PRESENT: dry, warm Results Laboratory Results: 07/14/17 07/14/17 07/14/17 16:46 16:46 18:30 Carbonic Acid 1.18 1.11 HCO3/H2CO3 Ratio 22:1 22:1 ABG pH 7.45 7.45 ABG pCO2 39.2 36.8 ABG pO2 86.4 87.0 ABG HCO3 26.4 H 25.2 ABG O2 Saturation 96.9 97.0 ABG Base Excess 2.3 1.5 FiO2 50% 50% Urine Color STRAW Urine Appearance CLEAR Urine pH 6.0 Ur Specific [place] 1.004 Urine Protein NEGATIVE Urine Glucose (UA) NEGATIVE Urine Ketones NEGATIVE Urine Blood NEGATIVE Urine Nitrite NEGATIVE Ur Leukocyte Esterase NEGATIVE Urine WBC (Auto) 0 Impressions: Head CT 07/14/17 10:50 IMPRESSION: NORMAL BRAIN CT WITHOUT CONTRAST. EVIDENCE OF ACUTE STROKE: NO. Chest X-Ray 07/14/17 13:16 IMPRESSION: Appropriate endotracheal tube. Nasogastric tube should be advanced further. KUB X-Ray 07/14/17 13:16 IMPRESSION: Nasogastric tube with tip in the distal esophagus. This should be advanced further into the stomach. Assessment & Plan - Diagnosis (1) Acute respiratory failure Is this a current diagnosis for this admission?: Yes Plan: 50% fio2 PAO2/FIO2 = 174 (2) Altered mental status Qualifiers: Altered mental status type: coma Coma depth: [place] coma 3-8 Coma timing : unspecified coma timing Qualified Code(s): R40.2430 - Mitchell coma scale score 3-8, unspecified time Is this a current diagnosis for this admission?: Yes (3) Aspiration into airway Qualifiers: Encounter type: initial encounter Qualified Code(s): T17.908A - Unspecified foreign body in respiratory tract, part unspecified causing other injury, initial encounter Is this a current diagnosis for this admission?: Yes Plan: R lower lobe per CXR (4) Anxiety and depression Is this a current diagnosis for this admission?: Yes (5) Bipolar disorder Qualifiers: Active/Remission status: remission status unspecified Qualified Code(s): F31.9 - Bipolar disorder, unspecified Is this a current diagnosis for this admission?: Yes (6) GERD (gastroesophageal reflux disease) Qualifiers: Esophagitis presence: without esophagitis Qualified Code(s): K21.9 - Gastro -esophageal reflux disease without esophagitis Is this a current diagnosis for this admission?: Yes - Time Total Critical Time (Minutes): 55
--- NOTE | 2017-07-16 10:31 | PDOC PROGRESS REPORT ---
Subjective Progress Note for:: 07/15/17 Subjective:: Intubated and sedated Reason For Visit: AMS,ACUTE RESP FAILURE,POSSIBLE ASPIRATION Physical Exam Vital Signs: Temp Pulse Resp BP Pulse Ox 98.1 F 118 H 17 94/70 L 98 07/15/17 06:00 07/15/17 00:00 07/15/17 06:00 07/15/17 05:03 07/15/17 06:00 Intake & Output 07/14/17 07/15/17 07/16/17 06:59 06:59 06:59 Intake Total 2137 Output Total 3405 Balance -1268 Weight 97.2 kg General appearance: PRESENT: no acute distress, disheveled. ABSENT: cooperative Head exam: PRESENT: atraumatic, normocephalic Eye exam: PRESENT: conjunctiva pale. ABSENT: EOMI, nystagmus, periorbital swelling, scleral icterus Mouth exam: PRESENT: dry mucosa, neck supple, tongue midline, other - ET tube in place Neck exam: ABSENT: carotid bruit, JVD, lymphadenopathy, thyromegaly, tracheal deviation, tracheostomy Respiratory exam: PRESENT: decreased breath sounds, prolonged expiratory phas, rales, rhonchi, unlabored. ABSENT: retraction, stridor Cardiovascular exam: PRESENT: RRR, +S1, +S2, tachycardia Pulses: PRESENT: normal radial pulses GI/Abdominal exam: PRESENT: diminished bowel sounds, soft Extremities exam: ABSENT: clubbing, joint swelling Musculoskeletal exam: ABSENT: ambulatory, deformity, dislocation Neurological exam: ABSENT: awake Skin exam: PRESENT: dry, warm Results Laboratory Results: 07/15/17 03:46 07/15/17 03:46 07/14/17 07/14/17 07/14/17 16:46 16:46 18:30 WBC RBC Hgb Hct MCV MCH MCHC RDW Plt Count Seg Neutrophils % Lymphocytes % Monocytes % Eosinophils % Basophils % Absolute Neutrophils Absolute Lymphocytes Absolute Monocytes Absolute Eosinophils Absolute Basophils Carbonic Acid 1.18 1.11 HCO3/H2CO3 Ratio 22:1 22:1 ABG pH 7.45 7.45 ABG pCO2 39.2 36.8 ABG pO2 86.4 87.0 ABG HCO3 26.4 H 25.2 ABG O2 Saturation 96.9 97.0 ABG Base Excess 2.3 1.5 FiO2 50% 50% Sodium Potassium Chloride Carbon Dioxide Anion Gap BUN Creatinine Est GFR ( Amer) Est GFR (Non-Af Amer) Glucose Lactic Acid Calcium Magnesium Total Bilirubin AST ALT Alkaline Phosphatase Total Protein Albumin Urine Color STRAW Urine Appearance CLEAR Urine pH 6.0 Ur Specific [place] 1.004 Urine Protein NEGATIVE Urine Glucose (UA) NEGATIVE Urine Ketones NEGATIVE Urine Blood NEGATIVE Urine Nitrite NEGATIVE Ur Leukocyte Esterase NEGATIVE Urine WBC (Auto) 0 07/15/17 07/15/17 07/15/17 03:46 03:46 03:46 WBC 9.2 RBC 4.87 Hgb 13.7 D Hct 40.2 MCV 83 MCH 28.1 MCHC 34.1 RDW 15.1 H Plt Count 224 Seg Neutrophils % 67.2 Lymphocytes % 23.2 Monocytes % 8.9 Eosinophils % 0.3 Basophils % 0.4 Absolute Neutrophils 6.2 Absolute Lymphocytes 2.1 Absolute Monocytes 0.8 Absolute Eosinophils 0.0 Absolute Basophils 0.0 Carbonic Acid HCO3/H2CO3 Ratio ABG pH ABG pCO2 ABG pO2 ABG HCO3 ABG O2 Saturation ABG Base Excess FiO2 Sodium 151.5 H Potassium 3.6 Chloride 113 H Carbon Dioxide 25 Anion Gap 14 BUN 13 Creatinine 0.87 Est GFR ( Amer) > 60 Est GFR (Non-Af Amer) > 60 Glucose 135 H Lactic Acid 1.4 Calcium 8.5 Magnesium 1.9 Total Bilirubin 0.2 AST 51 ALT 28 Alkaline Phosphatase 58 Total Protein 6.1 L Albumin 3.5 Urine Color Urine Appearance Urine pH Ur Specific [place] Urine Protein Urine Glucose (UA) Urine Ketones Urine Blood Urine Nitrite Ur Leukocyte Esterase Urine WBC (Auto) 07/15/17 04:50 WBC RBC Hgb Hct MCV MCH MCHC RDW Plt Count Seg Neutrophils % Lymphocytes % Monocytes % Eosinophils % Basophils % Absolute Neutrophils Absolute Lymphocytes Absolute Monocytes Absolute Eosinophils Absolute Basophils Carbonic Acid 1.30 HCO3/H2CO3 Ratio 23:1 ABG pH 7.47 H ABG pCO2 43.2 ABG pO2 81.1 ABG HCO3 30.9 H ABG O2 Saturation 96.5 ABG Base Excess 6.6 FiO2 40% Sodium Potassium Chloride Carbon Dioxide Anion Gap BUN Creatinine Est GFR ( Amer) Est GFR (Non-Af Amer) Glucose Lactic Acid Calcium Magnesium Total Bilirubin AST ALT Alkaline Phosphatase Total Protein Albumin Urine Color Urine Appearance Urine pH Ur Specific [place] Urine Protein Urine Glucose (UA) Urine Ketones Urine Blood Urine Nitrite Ur Leukocyte Esterase Urine WBC (Auto) 07/15/17 07/15/17 03:46 03:46 Creatine Kinase 3071 H NT-Pro-B Natriuret Pep 736 H Impressions: Head CT 07/14/17 10:50 IMPRESSION: NORMAL BRAIN CT WITHOUT CONTRAST. EVIDENCE OF ACUTE STROKE: NO. KUB X-Ray 07/14/17 13:16 IMPRESSION: Nasogastric tube with tip in the distal esophagus. This should be advanced further into the stomach. Chest X-Ray 07/15/17 06:00 IMPRESSION: Endotracheal tube tip is 8.3 cm from the eva; consider advancing the endotracheal tube by 3 cm. Assessment & Plan - Diagnosis (1) Acute respiratory failure Is this a current diagnosis for this admission?: Yes Plan: ImprovingPAO2/FIO2 = 227 (2) Altered mental status Qualifiers: Altered mental status type: coma Coma depth: [place] coma 3-8 Coma timing : unspecified coma timing Qualified Code(s): R40.2430 - Mitchell coma scale score 3-8, unspecified time Is this a current diagnosis for this admission?: Yes (3) Aspiration into airway Qualifiers: Encounter type: initial encounter Qualified Code(s): T17.908A - Unspecified foreign body in respiratory tract, part unspecified causing other injury, initial encounter Is this a current diagnosis for this admission?: Yes Plan: R lower lobe per CXR (4) Anxiety and depression Is this a current diagnosis for this admission?: Yes Plan: Resume home meds this time (5) Bipolar disorder Qualifiers: Active/Remission status: remission status unspecified Qualified Code(s): F31.9 - Bipolar disorder, unspecified Is this a current diagnosis for this admission?: Yes (6) GERD (gastroesophageal reflux disease) Qualifiers: Esophagitis presence: without esophagitis Qualified Code(s): K21.9 - Gastro -esophageal reflux disease without esophagitis Is this a current diagnosis for this admission?: Yes - Time Total Critical Time (Minutes): 45
[2017-07-16] MEDS: FAMOTIDINE INJ/PF 20 MG/2 ML SDV IV SCH ×2 (10:39→22:13)
[2017-07-16] MEDS: POTASSI CL 20 MEQ/50 ML RIDER 20 MEQ/50 ML RTUPB IV SCH ×3 (10:40→17:15)
[2017-07-16] MEDS: ENOXAPARIN SODIUM INJ 40 MG/0.4 ML DISP.SYRIN SUBCUT SCH (10:41)
[2017-07-16] MEDS: NYSTATIN TOPICAL POWDER 15 GM TP SCH ×2 (10:42→17:16)
[2017-07-16] MEDS: DEXTROSE 5%-1/2 NORMAL SALINE 1,000 ML IV PRN ×2 (14:52→23:55)
[2017-07-16] MEDS: BUSPIRONE HCL 10 MG TABLET NG SCH (19:27)
[2017-07-16] MEDS: HALOPERIDOL 5 MG TABLET NG SCH (19:27)
--- NOTE | 2017-07-16 21:50 | PDOC PROGRESS REPORT ---
Subjective Progress Note for:: 07/16/17 Subjective:: Patient was seen by the bedside, intubated on mechanical ventilation, was admitted initially on the hospitalist service, for aspiration pneumonia, required mechanical ventilation, presently on spontaneous breathing with pressure support and PEEP Reason For Visit: AMS,ACUTE RESP FAILURE,POSSIBLE ASPIRATION Physical Exam Vital Signs: Temp Pulse Resp BP Pulse Ox 99.1 F 73 14 116/77 97 07/16/17 20:00 07/16/17 10:00 07/16/17 19:15 07/16/17 19:05 07/16/17 19:15 Intake & Output 07/15/17 07/16/17 07/17/17 06:59 06:59 06:59 Intake Total 2137 4306 1597 Output Total 3405 1005 960 Balance -1268 3301 637 Weight 97.2 kg 99.7 kg General appearance: PRESENT: no acute distress Respiratory exam: PRESENT: clear to auscultation wan Cardiovascular exam: PRESENT: +S1, +S2 GI/Abdominal exam: PRESENT: soft Results Laboratory Results: 07/16/17 04:23 07/16/17 04:23 07/16/17 07/16/17 07/16/17 04:23 04:23 04:23 WBC 4.4 RBC 4.75 Hgb 13.2 L Hct 39.2 MCV 82 MCH 27.8 MCHC 33.7 RDW 15.6 H Plt Count 206 Seg Neutrophils % 43.5 Lymphocytes % 41.1 Monocytes % 13.2 H Eosinophils % 1.6 Basophils % 0.6 Absolute Neutrophils 1.9 Absolute Lymphocytes 1.8 Absolute Monocytes 0.6 Absolute Eosinophils 0.1 Absolute Basophils 0.0 Carbonic Acid HCO3/H2CO3 Ratio ABG pH ABG pCO2 ABG pO2 ABG HCO3 ABG O2 Saturation ABG Base Excess FiO2 Sodium 150.3 H Potassium 3.1 L Chloride 112 H Carbon Dioxide 27 Anion Gap 11 BUN 11 Creatinine 0.74 Est GFR ( Amer) > 60 Est GFR (Non-Af Amer) > 60 Glucose 116 H Calcium 8.8 Phosphorus Magnesium 1.9 Total Bilirubin < 0.1 L AST 37 ALT 27 Alkaline Phosphatase 54 Total Protein 5.9 L Albumin 3.2 L 07/16/17 07/16/17 04:23 04:45 WBC RBC Hgb Hct MCV MCH MCHC RDW Plt Count Seg Neutrophils % Lymphocytes % Monocytes % Eosinophils % Basophils % Absolute Neutrophils Absolute Lymphocytes Absolute Monocytes Absolute Eosinophils Absolute Basophils Carbonic Acid 1.18 HCO3/H2CO3 Ratio 23:1 ABG pH 7.46 H ABG pCO2 39.3 ABG pO2 67.7 L ABG HCO3 27.6 H ABG O2 Saturation 94.5 ABG Base Excess 3.7 FiO2 30% Sodium Potassium Chloride Carbon Dioxide Anion Gap BUN Creatinine Est GFR ( Amer) Est GFR (Non-Af Amer) Glucose Calcium Phosphorus 4.1 Magnesium Total Bilirubin AST ALT Alkaline Phosphatase Total Protein Albumin 07/15/17 07/15/17 07/16/17 03:46 03:46 04:23 Creatine Kinase 3071 H 1259 H NT-Pro-B Natriuret Pep 736 H Impressions: Head CT 07/14/17 10:50 IMPRESSION: NORMAL BRAIN CT WITHOUT CONTRAST. EVIDENCE OF ACUTE STROKE: NO. KUB X-Ray 07/14/17 13:16 IMPRESSION: Nasogastric tube with tip in the distal esophagus. This should be advanced further into the stomach. Chest X-Ray 07/16/17 06:00 IMPRESSION: No significant change. Assessment & Plan - Diagnosis (1) Acute respiratory failure Is this a current diagnosis for this admission?: Yes (2) Pneumonia Qualifiers: Pneumonia type: due to unspecified organism Lung location: lower lobe of lung Is this a current diagnosis for this admission?: Yes (3) Schizophrenia Qualifiers: Schizophrenia type: unspecified Qualified Code(s): F20.9 - Schizophrenia, unspecified Is this a current diagnosis for this admission?: Yes (4) Sepsis Qualifiers: Sepsis type: sepsis due to unspecified organism Qualified Code(s): A41.9 - Sepsis, unspecified organism Is this a current diagnosis for this admission?: Yes - Plan Summary Plan Summary: Continue present treatment
[2017-07-16] MEDS: GABAPENTIN 300 MG CAPSULE NG SCH (22:13)
[2017-07-16] MEDS: OXYCODONE HCL IR 5 MG TABLET NG PRN (23:53)
[2017-07-17] MEDS: PROPOFOL 1,000 MG/100 ML INFUS..BTL IV PRN ×6 (01:47→22:44)
[2017-07-17 04:28] LABS: ABSOLUTE EOSINOPHILS # (AUTO) 0.2 10^3/uL (0.0-0.6); ABSOLUTE LYMPHOCYTES (AUTO) 1.8 10^3/uL (0.5-4.7); ABSOLUTE MONOCYTES (AUTO) 0.5 10^3/uL (0.1-1.4); EOSINOPHILS % (AUTO) 4.1 % (0-6); HEMATOCRIT 37.2 % (37.9-51.0); HEMOGLOBIN 12.5 g/dL (13.5-17.0); LYMPHOCYTES % (AUTO) 39.3 % (13-45); MEAN CORPUSCULAR HEMOGLOBIN 27.8 pg (27.0-33.4); MEAN CORPUSCULAR HGB CONC 33.5 g/dL (32.0-36.0); MEAN CORPUSCULAR VOLUME 83 fl (80-97); MONOCYTES % (AUTO) 11.3 % (3-13); PLATELET COUNT 180 10^3/uL (150-450); RED BLOOD COUNT 4.48 10^6/uL (4.35-5.55); RED CELL DISTRIBUTION WIDTH 15.5 % (11.5-14.0); SEGMENTED NEUTROPHILS % (AUTO) 44.3 % (42-78); TOTAL CELLS COUNTED % (AUTO) 100 %; WHITE BLOOD COUNT 4.5 10^3/uL (4.0-10.5)
[2017-07-17 05:49] LABS: ARTERIAL BLOOD H2CO3 1.34 mmol/L (1.05-1.35); ARTERIAL BLOOD HCO3 27.1 mmol/L (20-26); ARTERIAL BLOOD O2 SATURATION 96.1 % (94-98); ARTERIAL BLOOD PCO2 44.4 mmHg (35-45); ARTERIAL BLOOD TOTAL CO2 28.5 mmol/L (23-27)
[2017-07-17] MEDS: AMPICILLIN SODIUM/SULBACTAM NA 3 GM in NORMAL SALINE 100 ML IV SCH ×4 (05:49→23:55)
[2017-07-17 05:50] LABS: ARTERIAL BLOOD FIO2 40%
[2017-07-17 06:14] LABS: ANION GAP 8 (5-19); BLOOD UREA NITROGEN 10 mg/dL (7-20); CALCIUM 8.5 mg/dL (8.4-10.2); CARBON DIOXIDE 26 mmol/L (22-30); CHLORIDE 116 mmol/L (98-107); GLUCOSE 109 mg/dL (75-110); POTASSIUM 3.4 mmol/L (3.6-5.0); SODIUM 149.7 mmol/L (137-145)
--- NOTE | 2017-07-17 07:08 | RADIOLOGY REPORT (SQ) ---
EXAM DESCRIPTION: XR CHEST 1 VIEW COMPLETED DATE/TME: 07/17/2017 06:00 CLINICAL HISTORY: 42 years, Male, Acute respiratory failure endotracheal tube. COMPARISON: 07/16/2017 FINDINGS: Single view of the chest. Endotracheal tube with tip at the level of clavicles. NG tube with tip below the diaphragm. Mediastinal silhouette is stable. No pneumothorax or large effusion. Slight interval increase in hazy left basilar opacity. Leads overlie the chest. Upper abdominal soft tissues unremarkable. Osseous structures are stable. IMPRESSION: 1. Interval increase in hazy left basilar opacities which may be related to atelectasis or pneumonia. 2011 [employer]- All Rights Reserved
--- NOTE | 2017-07-17 10:24 | PDOC PROGRESS REPORT ---
Subjective Progress Note for:: 07/17/17 Subjective:: Intubated and sedated Reason For Visit: AMS,ACUTE RESP FAILURE,POSSIBLE ASPIRATION Physical Exam Vital Signs: Temp Pulse Resp BP Pulse Ox 96.4 F L 73 0 L 121/85 99 07/17/17 06:15 07/16/17 20:00 07/17/17 06:15 07/17/17 05:44 07/17/17 06:15 Intake & Output 07/16/17 07/17/17 07/18/17 06:59 06:59 06:59 Intake Total 4306 3050 Output Total 1005 1200 150 Balance 3301 1850 -150 Weight 99.7 kg 103 kg General appearance: PRESENT: no acute distress, disheveled, obese. ABSENT: cooperative Head exam: PRESENT: atraumatic, normocephalic Eye exam: ABSENT: conjunctiva pale, EOMI, nystagmus, periorbital swelling, scleral icterus Mouth exam: PRESENT: dry mucosa, neck supple, tongue midline, other - ET tube Neck exam: ABSENT: carotid bruit, JVD, lymphadenopathy, thyromegaly, tracheal deviation, tracheostomy Respiratory exam: PRESENT: decreased breath sounds, prolonged expiratory phas, rales, rhonchi, unlabored. ABSENT: retraction, stridor, tachypnea Cardiovascular exam: PRESENT: RRR, +S1, +S2, tachycardia Pulses: PRESENT: normal radial pulses GI/Abdominal exam: PRESENT: hypoactive bowel sounds, soft Extremities exam: ABSENT: clubbing, pedal edema Musculoskeletal exam: ABSENT: deformity, dislocation Neurological exam: ABSENT: awake, oriented to person - [id number] Skin exam: PRESENT: dry, warm Results Laboratory Results: 07/17/17 03:46 07/17/17 03:46 07/16/17 07/17/17 07/17/17 04:23 03:46 03:46 WBC 4.5 RBC 4.48 Hgb 12.5 L Hct 37.2 L MCV 83 MCH 27.8 MCHC 33.5 RDW 15.5 H Plt Count 180 Seg Neutrophils % 44.3 Lymphocytes % 39.3 Monocytes % 11.3 Eosinophils % 4.1 Basophils % 1.0 Absolute Neutrophils 2.0 Absolute Lymphocytes 1.8 Absolute Monocytes 0.5 Absolute Eosinophils 0.2 Absolute Basophils 0.0 Carbonic Acid HCO3/H2CO3 Ratio ABG pH ABG pCO2 ABG pO2 ABG HCO3 ABG O2 Saturation ABG Base Excess FiO2 Sodium Potassium Chloride Carbon Dioxide Anion Gap BUN Creatinine Est GFR ( Amer) Est GFR (Non-Af Amer) Glucose Calcium Phosphorus 4.1 Magnesium 1.9 Triglycerides 201 H 07/17/17 07/17/17 03:46 05:30 WBC RBC Hgb Hct MCV MCH MCHC RDW Plt Count Seg Neutrophils % Lymphocytes % Monocytes % Eosinophils % Basophils % Absolute Neutrophils Absolute Lymphocytes Absolute Monocytes Absolute Eosinophils Absolute Basophils Carbonic Acid 1.34 HCO3/H2CO3 Ratio 20:1 ABG pH 7.40 ABG pCO2 44.4 ABG pO2 82.0 ABG HCO3 27.1 H ABG O2 Saturation 96.1 ABG Base Excess 2.0 FiO2 40% Sodium 149.7 H Potassium 3.4 L Chloride 116 H Carbon Dioxide 26 Anion Gap 8 BUN 10 Creatinine 0.66 Est GFR ( Amer) > 60 Est GFR (Non-Af Amer) > 60 Glucose 109 Calcium 8.5 Phosphorus Magnesium Triglycerides 07/15/17 07/15/17 07/16/17 03:46 03:46 04:23 Creatine Kinase 3071 H 1259 H NT-Pro-B Natriuret Pep 736 H Impressions: Head CT 07/14/17 10:50 IMPRESSION: NORMAL BRAIN CT WITHOUT CONTRAST. EVIDENCE OF ACUTE STROKE: NO. KUB X-Ray 07/14/17 13:16 IMPRESSION: Nasogastric tube with tip in the distal esophagus. This should be advanced further into the stomach. Chest X-Ray 07/17/17 06:00 IMPRESSION: 1. Interval increase in hazy left basilar opacities which may be related to atelectasis or pneumonia. 2010 [employer]- All Rights Reserved Assessment & Plan - Diagnosis (1) Acute respiratory failure Is this a current diagnosis for this admission?: Yes Plan: PAO2/FIO2 = 205 (2) Altered mental status Qualifiers: Altered mental status type: coma Coma depth: [place] coma 3-8 Coma timing : unspecified coma timing Qualified Code(s): R40.2430 - Mitchell coma scale score 3-8, unspecified time Is this a current diagnosis for this admission?: Yes (3) Aspiration into airway Qualifiers: Encounter type: initial encounter Qualified Code(s): T17.908A - Unspecified foreign body in respiratory tract, part unspecified causing other injury, initial encounter Is this a current diagnosis for this admission?: Yes Plan: R lower lobe per CXR (4) Anxiety and depression Is this a current diagnosis for this admission?: Yes Plan: Resume home meds this time (5) Bipolar disorder Qualifiers: Active/Remission status: remission status unspecified Qualified Code(s): F31.9 - Bipolar disorder, unspecified Is this a current diagnosis for this admission?: Yes (6) GERD (gastroesophageal reflux disease) Qualifiers: Esophagitis presence: without esophagitis Qualified Code(s): K21.9 - Gastro -esophageal reflux disease without esophagitis Is this a current diagnosis for this admission?: Yes - Time Total Critical Time (Minutes): 45
[2017-07-17] MEDS: FAMOTIDINE INJ/PF 20 MG/2 ML SDV IV SCH ×2 (10:46→22:45)
[2017-07-17] MEDS: FUROSEMIDE INJ/PF 20 MG/2 ML SDV IV SCH ×2 (10:47→22:44)
[2017-07-17] MEDS: GABAPENTIN 300 MG CAPSULE NG SCH ×2 (10:47→22:45)
[2017-07-17] MEDS: BUSPIRONE HCL 10 MG TABLET NG SCH ×3 (10:47→17:28)
[2017-07-17] MEDS: ENOXAPARIN SODIUM INJ 40 MG/0.4 ML DISP.SYRIN SUBCUT SCH (10:49)
[2017-07-17] MEDS: POTASSI CL 20 MEQ/50 ML RIDER 20 MEQ/50 ML RTUPB IV SCH ×2 (10:49→13:44)
[2017-07-17] MEDS: NYSTATIN TOPICAL POWDER 15 GM TP SCH ×2 (10:50→17:28)
[2017-07-17] MEDS ORDERED: NICOTINE 14 MG/24 HR PATCH.TD24 TD ONE (12:15)
[2017-07-17] MEDS: OXYCODONE HCL IR 5 MG TABLET NG PRN (13:43)
[2017-07-17] MEDS: DEXTROSE 5%-WATER 1000 ML 1,000 ML IV PRN ×3 (13:50→22:46)
--- NOTE | 2017-07-17 14:19 | RADIOLOGY REPORT (SQ) ---
EXAM DESCRIPTION: KUB/ABDOMEN (SINGLE VIEW) COMPLETED DATE/TIME: 07/17/2017 1:33 pm REASON FOR STUDY: verify OG prior to enteral feeding COMPARISON: None. TECHNIQUE: AP view of the lower thorax and upper abdomen. LIMITATIONS: None. FINDINGS: NG tube is identified coiled in the left upper quadrant presumably in the fundus of the st omach. There is a nonspecific intestinal bowel gas pattern. No free intraperitoneal air is identifi ed. Orthopedic hardware is identified at the lumbosacral junction. IMPRESSION: NG tube is identified coiled in the left upper quadrant presumably in the fundus of the stomach. Other findings as noted above TECHNICAL DOCUMENTATION: JOB ID: [id number] [employer]- All Rights Reserved Reading location - IP/workstation name: [email or web address]
[2017-07-17] MEDS: HALOPERIDOL 5 MG TABLET NG SCH (17:28)
--- NOTE | 2017-07-17 22:43 | PDOC PROGRESS REPORT ---
Subjective Progress Note for:: 07/24/17 Subjective:: Patient still on mechanical ventilation he has right upper extremity swelling Reason For Visit: AMS,ACUTE RESP FAILURE,POSSIBLE ASPIRATION Physical Exam Vital Signs: Temp Pulse Resp BP Pulse Ox 98.4 F 55 L 11 L 126/86 H 97 07/17/17 21:40 07/17/17 08:00 07/17/17 18:44 07/17/17 18:44 07/17/17 18:44 Intake & Output 07/16/17 07/17/17 07/18/17 06:59 06:59 06:59 Intake Total 4306 3050 1815 Output Total 1005 1200 3835 Balance 3301 185 -2019 Weight 99.7 kg 103 kg 103 kg Eye exam: PRESENT: PERRLA Respiratory exam: PRESENT: clear to auscultation wan Cardiovascular exam: PRESENT: +S1, +S2 GI/Abdominal exam: PRESENT: soft Results Laboratory Results: 07/17/17 03:46 07/17/17 03:46 07/17/17 07/17/17 07/17/17 03:46 03:46 03:46 WBC 4.5 RBC 4.48 Hgb 12.5 L Hct 37.2 L MCV 83 MCH 27.8 MCHC 33.5 RDW 15.5 H Plt Count 180 Seg Neutrophils % 44.3 Lymphocytes % 39.3 Monocytes % 11.3 Eosinophils % 4.1 Basophils % 1.0 Absolute Neutrophils 2.0 Absolute Lymphocytes 1.8 Absolute Monocytes 0.5 Absolute Eosinophils 0.2 Absolute Basophils 0.0 Carbonic Acid HCO3/H2CO3 Ratio ABG pH ABG pCO2 ABG pO2 ABG HCO3 ABG O2 Saturation ABG Base Excess FiO2 Sodium 149.7 H Potassium 3.4 L Chloride 116 H Carbon Dioxide 26 Anion Gap 8 BUN 10 Creatinine 0.66 Est GFR ( Amer) > 60 Est GFR (Non-Af Amer) > 60 Glucose 109 Calcium 8.5 Magnesium 1.9 Triglycerides 201 H 07/17/17 05:30 WBC RBC Hgb Hct MCV MCH MCHC RDW Plt Count Seg Neutrophils % Lymphocytes % Monocytes % Eosinophils % Basophils % Absolute Neutrophils Absolute Lymphocytes Absolute Monocytes Absolute Eosinophils Absolute Basophils Carbonic Acid 1.34 HCO3/H2CO3 Ratio 20:1 ABG pH 7.40 ABG pCO2 44.4 ABG pO2 82.0 ABG HCO3 27.1 H ABG O2 Saturation 96.1 ABG Base Excess 2.0 FiO2 40% Sodium Potassium Chloride Carbon Dioxide Anion Gap BUN Creatinine Est GFR ( Amer) Est GFR (Non-Af Amer) Glucose Calcium Magnesium Triglycerides 07/14/17 18:30 Tracheal Aspirate Gram Stain - Final 07/14/17 18:30 Tracheal Aspirate Sputum Culture - Final Staphylococcus Aureus Yeast, Not Peace Albicans Greatly Reduced Normal Stephanie 07/15/17 07/15/17 07/16/17 03:46 03:46 04:23 Creatine Kinase 3071 H 1259 H NT-Pro-B Natriuret Pep 736 H Impressions: Head CT 07/14/17 10:50 IMPRESSION: NORMAL BRAIN CT WITHOUT CONTRAST. EVIDENCE OF ACUTE STROKE: NO. Chest X-Ray 07/17/17 06:00 IMPRESSION: 1. Interval increase in hazy left basilar opacities which may be related to atelectasis or pneumonia. 2010 [employer]- All Rights Reserved KUB X-Ray 07/17/17 11:52 IMPRESSION: NG tube is identified coiled in the left upper quadrant presumably in the fundus of the stomach. Other findings as noted above Assessment & Plan - Diagnosis (1) Acute respiratory failure Is this a current diagnosis for this admission?: Yes (2) Pneumonia Qualifiers: Pneumonia type: due to unspecified organism Lung location: lower lobe of lung Is this a current diagnosis for this admission?: Yes (3) Schizophrenia Qualifiers: Schizophrenia type: unspecified Qualified Code(s): F20.9 - Schizophrenia, unspecified Is this a current diagnosis for this admission?: Yes (4) Sepsis Qualifiers: Sepsis type: sepsis due to unspecified organism Qualified Code(s): A41.9 - Sepsis, unspecified organism Is this a current diagnosis for this admission?: Yes
[2017-07-18] MEDS: PROPOFOL 1,000 MG/100 ML INFUS..BTL IV PRN ×6 (02:16→21:39)
[2017-07-18] MEDS: OXYCODONE HCL IR 5 MG TABLET NG PRN (02:16)
[2017-07-18] MEDS: AMPICILLIN SODIUM/SULBACTAM NA 3 GM in NORMAL SALINE 100 ML IV SCH ×3 (05:52→17:26)
[2017-07-18 06:39] LABS: ANION GAP 8 (5-19); BLOOD UREA NITROGEN 12 mg/dL (7-20); CALCIUM 8.9 mg/dL (8.4-10.2); CARBON DIOXIDE 28 mmol/L (22-30); CHLORIDE 112 mmol/L (98-107); GLUCOSE 97 mg/dL (75-110); POTASSIUM 3.4 mmol/L (3.6-5.0); SODIUM 147.8 mmol/L (137-145)
[2017-07-18 06:54] LABS: HEMATOCRIT 41.3 % (37.9-51.0); HEMOGLOBIN 13.8 g/dL (13.5-17.0); MEAN CORPUSCULAR HEMOGLOBIN 27.5 pg (27.0-33.4); MEAN CORPUSCULAR HGB CONC 33.4 g/dL (32.0-36.0); MEAN CORPUSCULAR VOLUME 82 fl (80-97); PLATELET COUNT 178 10^3/uL (150-450); RED BLOOD COUNT 5.02 10^6/uL (4.35-5.55); RED CELL DISTRIBUTION WIDTH 15.5 % (11.5-14.0); WHITE BLOOD COUNT 9.1 10^3/uL (4.0-10.5)
[2017-07-18 06:58] LABS: ARTERIAL BLOOD H2CO3 1.19 mmol/L (1.05-1.35); ARTERIAL BLOOD HCO3 27.1 mmol/L (20-26); ARTERIAL BLOOD O2 SATURATION 94.7 % (94-98); ARTERIAL BLOOD PCO2 39.6 mmHg (35-45); ARTERIAL BLOOD PH 7.45 (7.35-7.45); ARTERIAL BLOOD PO2 69.5 mmHg (80-100); ARTERIAL BLOOD TOTAL CO2 28.3 mmol/L (23-27)
[2017-07-18 06:59] LABS: ARTERIAL BLOOD FIO2 45%
[2017-07-18] MEDS: BUSPIRONE HCL 10 MG TABLET NG SCH ×3 (09:12→17:26)
[2017-07-18] MEDS: NICOTINE 14 MG/24 HR PATCH.TD24 TD SCH (09:12)
[2017-07-18] MEDS: FUROSEMIDE INJ/PF 20 MG/2 ML SDV IV SCH ×2 (09:12→21:29)
[2017-07-18] MEDS: GABAPENTIN 300 MG CAPSULE NG SCH ×2 (09:12→21:29)
[2017-07-18] MEDS: FAMOTIDINE INJ/PF 20 MG/2 ML SDV IV SCH ×2 (09:12→21:29)
[2017-07-18] MEDS: NYSTATIN TOPICAL POWDER 15 GM TP SCH ×2 (09:13→17:27)
[2017-07-18] MEDS: ENOXAPARIN SODIUM INJ 40 MG/0.4 ML DISP.SYRIN SUBCUT SCH (09:15)
[2017-07-18] MEDS ORDERED: ACETYLCYSTEINE 20% SOLN 800 MG/4 ML VIAL.NEB NEB ONE (11:00)
[2017-07-18] MEDS: IPRATROPIUM/ALBUTEROL 0.5-2.5 MG/3 ML AMPUL NEB PRN ×2 (11:16→20:03)
[2017-07-18] MEDS: LEVOFLOXACIN 750 MG/D5W RTU 750 MG/150 ML RTUPB IV SCH (11:30)
[2017-07-18] MEDS: POTASSI CL 20 MEQ/50 ML RIDER 20 MEQ/50 ML RTUPB IV SCH ×2 (11:31→15:58)
[2017-07-18] MEDS: DEXTROSE 5%-WATER 1000 ML 1,000 ML IV PRN ×3 (11:35→21:33)
--- NOTE | 2017-07-18 13:09 | XCELERA REPORT ---
[address] [address] Upper Extremity Venous Evaluation Name: DONALD GARRIDO Age: 42 yrs Gender: Male : 1975 Patient Status: Inpatient Patient Location: ICU^[id number] Study Date: 07/18/2017 10:18 AM Procedure: Unilateral duplex scan of the right upper extremity veins was performed, including responses to compression and other maneuvers. Reason For Study: R arm Swelling of unknown cause Ordering Physician: LYNNE MCCABE Performed By: Argelia Stewart Right Side Venous Evaluation Abnormal vessel filling , no compression or augmentation in one of two Brachial veins. Also in the Cephalic vein. Otherwise normal down to the forearm veins. Interpretation Summary Fresh looking Deep Venous Thrombosis in the right Brachial vein, also superficial phlebitis. : LYNNE MCCABE > Freddy Soriano
--- NOTE | 2017-07-18 13:49 | PDOC PROGRESS REPORT ---
Subjective Progress Note for:: 07/18/17 Subjective:: Intubated and sedated Reason For Visit: AMS,ACUTE RESP FAILURE,POSSIBLE ASPIRATION Physical Exam Vital Signs: Temp Pulse Resp BP Pulse Ox 97.9 F 57 L 18 121/81 97 07/18/17 08:00 07/18/17 08:00 07/18/17 08:00 07/18/17 08:00 07/18/17 08:00 Intake & Output 07/17/17 07/18/17 07/19/17 06:59 06:59 06:59 Intake Total 3050 3286 Output Total 1200 5335 355 Balance 1849 Weight 103 kg 102.2 kg General appearance: PRESENT: no acute distress, cooperative, disheveled Head exam: PRESENT: atraumatic, normocephalic Eye exam: PRESENT: conjunctiva pale, EOMI. ABSENT: nystagmus, periorbital swelling, scleral icterus Mouth exam: PRESENT: dry mucosa, neck supple, tongue midline, other - Et tube Neck exam: ABSENT: carotid bruit, JVD, lymphadenopathy, thyromegaly, tracheal deviation, tracheostomy Cardiovascular exam: PRESENT: RRR, +S1, +S2, tachycardia Pulses: PRESENT: normal radial pulses GI/Abdominal exam: PRESENT: diminished bowel sounds, distended Extremities exam: PRESENT: +2 edema. ABSENT: calf tenderness, clubbing Musculoskeletal exam: ABSENT: deformity, dislocation Neurological exam: ABSENT: awake, oriented to person Skin exam: PRESENT: dry, warm Results Laboratory Results: 07/18/17 06:10 07/18/17 06:10 07/18/17 07/18/17 07/18/17 06:10 06:10 06:40 WBC 9.1 D RBC 5.02 Hgb 13.8 Hct 41.3 MCV 82 MCH 27.5 MCHC 33.4 RDW 15.5 H Plt Count 178 Carbonic Acid 1.19 HCO3/H2CO3 Ratio 22:1 ABG pH 7.45 ABG pCO2 39.6 ABG pO2 69.5 L ABG HCO3 27.1 H ABG O2 Saturation 94.7 ABG Base Excess 3.0 FiO2 45% Sodium 147.8 H Potassium 3.4 L Chloride 112 H Carbon Dioxide 28 Anion Gap 8 BUN 12 Creatinine 0.73 Est GFR ( Amer) > 60 Est GFR (Non-Af Amer) > 60 Glucose 97 Calcium 8.9 07/14/17 18:30 Tracheal Aspirate Gram Stain - Final 07/14/17 18:30 Tracheal Aspirate Sputum Culture - Final Staphylococcus Aureus Yeast, Not Peace Albicans Greatly Reduced Normal Stephanie 07/15/17 07/15/17 07/16/17 03:46 03:46 04:23 Creatine Kinase 3071 H 1259 H NT-Pro-B Natriuret Pep 736 H Impressions: Head CT 07/14/17 10:50 IMPRESSION: NORMAL BRAIN CT WITHOUT CONTRAST. EVIDENCE OF ACUTE STROKE: NO. Chest X-Ray 07/17/17 06:00 IMPRESSION: 1. Interval increase in hazy left basilar opacities which may be related to atelectasis or pneumonia. 2010 [employer]- All Rights Reserved KUB X-Ray 07/17/17 11:52 IMPRESSION: NG tube is identified coiled in the left upper quadrant presumably in the fundus of the stomach. Other findings as noted above Assessment & Plan - Diagnosis (1) Acute respiratory failure Is this a current diagnosis for this admission?: Yes Plan: PAO2/FIO2 = 155 CT scan reveals right lower lobe pneumonia (2) Altered mental status Qualifiers: Altered mental status type: coma Coma depth: [place] coma 3-8 Coma timing : unspecified coma timing Qualified Code(s): R40.2430 - [place] coma scale score 3-8, unspecified time Is this a current diagnosis for this admission?: Yes (3) Aspiration into airway Qualifiers: Encounter type: initial encounter Qualified Code(s): T17.908A - Unspecified foreign body in respiratory tract, part unspecified causing other injury, initial encounter Is this a current diagnosis for this admission?: Yes Plan: R lower lobe per CXR (4) Anxiety and depression Is this a current diagnosis for this admission?: Yes Plan: Resume home meds this time (5) Bipolar disorder Qualifiers: Active/Remission status: remission status unspecified Qualified Code(s): F31.9 - Bipolar disorder, unspecified Is this a current diagnosis for this admission?: Yes (6) GERD (gastroesophageal reflux disease) Qualifiers: Esophagitis presence: without esophagitis Qualified Code(s): K21.9 - Gastro -esophageal reflux disease without esophagitis Is this a current diagnosis for this admission?: Yes - Time Total Critical Time (Minutes): 50
[2017-07-18] MEDS: HALOPERIDOL 5 MG TABLET NG SCH (17:26)
[2017-07-18] MEDS: ENOXAPARIN SODIUM INJ 100 MG/1 ML DISP.SYRIN SUBCUT SCH (17:26)
[2017-07-18] MEDS: ACETYLCYSTEINE 20% SOLN 800 MG/4 ML VIAL.NEB NEB SCH (20:03)
[2017-07-18 21:24] LABS: APPEARANCE,URINE CLEAR; BILIRUBIN,URINE NEGATIVE (NEGATIVE); COLOR,URINE YELLOW; GLUCOSE, URINE NEGATIVE (NEGATIVE); KETONES,URINE TRACE mg/dL (NEGATIVE); LEUKOCYTE ESTERASE,URINE NEGATIVE (NEGATIVE); NITRITE,URINE NEGATIVE (NEGATIVE); PROTEIN,URINE NEGATIVE (NEGATIVE); URINE SPECIFIC GRAVITY 1.031
--- NOTE | 2017-07-18 21:56 | PDOC PROGRESS REPORT ---
Subjective Progress Note for:: 07/18/17 Subjective:: venous Doppler was positive for DVT of the right upper extremity Reason For Visit: AMS,ACUTE RESP FAILURE,POSSIBLE ASPIRATION Physical Exam Vital Signs: Temp Pulse Resp BP Pulse Ox 98.8 F 71 18 107/72 96 07/18/17 19:43 07/18/17 18:00 07/18/17 18:00 07/18/17 18:00 07/18/17 20:00 Intake & Output 07/17/17 07/18/17 07/19/17 06:59 06:59 06:59 Intake Total 3050 3286 1992 Output Total 5568 5332 3760 Balance 2311 -0632 -5055 Weight 103 kg 102.2 kg 102.2 kg General appearance: PRESENT: no acute distress Eye exam: PRESENT: PERRLA Respiratory exam: PRESENT: clear to auscultation wan Cardiovascular exam: PRESENT: +S1, +S2 Results Laboratory Results: 07/18/17 06:10 07/18/17 06:10 07/18/17 07/18/17 07/18/17 06:10 06:10 06:10 WBC 9.1 D RBC 5.02 Hgb 13.8 Hct 41.3 MCV 82 MCH 27.5 MCHC 33.4 RDW 15.5 H Plt Count 178 Carbonic Acid HCO3/H2CO3 Ratio ABG pH ABG pCO2 ABG pO2 ABG HCO3 ABG O2 Saturation ABG Base Excess FiO2 Sodium 147.8 H Potassium 3.4 L Chloride 112 H Carbon Dioxide 28 Anion Gap 8 BUN 12 Creatinine 0.73 Est GFR ( Amer) > 60 Est GFR (Non-Af Amer) > 60 Glucose 97 Calcium 8.9 Magnesium 2.0 Urine Color Urine Appearance Urine pH Ur Specific [place] Urine Protein Urine Glucose (UA) Urine Ketones Urine Blood Urine Nitrite Ur Leukocyte Esterase Urine WBC (Auto) Urine RBC (Auto) 07/18/17 07/18/17 06:40 20:45 WBC RBC Hgb Hct MCV MCH MCHC RDW Plt Count Carbonic Acid 1.19 HCO3/H2CO3 Ratio 22:1 ABG pH 7.45 ABG pCO2 39.6 ABG pO2 69.5 L ABG HCO3 27.1 H ABG O2 Saturation 94.7 ABG Base Excess 3.0 FiO2 45% Sodium Potassium Chloride Carbon Dioxide Anion Gap BUN Creatinine Est GFR ( Amer) Est GFR (Non-Af Amer) Glucose Calcium Magnesium Urine Color YELLOW Urine Appearance CLEAR Urine pH 5.0 Ur Specific [place] 1.031 Urine Protein NEGATIVE Urine Glucose (UA) NEGATIVE Urine Ketones TRACE H Urine Blood NEGATIVE Urine Nitrite NEGATIVE Ur Leukocyte Esterase NEGATIVE Urine WBC (Auto) 2 Urine RBC (Auto) 1 07/14/17 17:44 Blood Blood Culture - Final Micrococcus Species 07/15/17 07/15/17 07/16/17 03:46 03:46 04:23 Creatine Kinase 3071 H 1259 H NT-Pro-B Natriuret Pep 736 H Impressions: Head CT 07/14/17 10:50 IMPRESSION: NORMAL BRAIN CT WITHOUT CONTRAST. EVIDENCE OF ACUTE STROKE: NO. Chest X-Ray 07/17/17 06:00 IMPRESSION: 1. Interval increase in hazy left basilar opacities which may be related to atelectasis or pneumonia. 2010 [employer]- All Rights Reserved KUB X-Ray 07/17/17 11:52 IMPRESSION: NG tube is identified coiled in the left upper quadrant presumably in the fundus of the stomach. Other findings as noted above Assessment & Plan - Diagnosis (1) Acute respiratory failure Is this a current diagnosis for this admission?: Yes (2) Pneumonia Qualifiers: Pneumonia type: due to unspecified organism Lung location: lower lobe of lung Is this a current diagnosis for this admission?: Yes (3) Schizophrenia Qualifiers: Schizophrenia type: unspecified Qualified Code(s): F20.9 - Schizophrenia, unspecified Is this a current diagnosis for this admission?: Yes (4) Sepsis Qualifiers: Sepsis type: sepsis due to unspecified organism Qualified Code(s): A41.9 - Sepsis, unspecified organism Is this a current diagnosis for this admission?: Yes (5) Deep vein thrombosis of right upper extremity Qualifiers: Affected thrombotic vein of extremity: brachial Chronicity: acute Qualified Code(s): I82.621 - Acute embolism and thrombosis of deep veins of right upper extremity Is this a current diagnosis for this admission?: Yes Plan: Start Lovenox 1 mg/kg body weight every 12
[2017-07-19] MEDS: AMPICILLIN SODIUM/SULBACTAM NA 3 GM in NORMAL SALINE 100 ML IV SCH ×4 (00:59→17:12)
[2017-07-19] MEDS: PROPOFOL 1,000 MG/100 ML INFUS..BTL IV PRN ×3 (01:01→07:05)
[2017-07-19] MEDS: OXYCODONE HCL IR 5 MG TABLET NG PRN ×3 (02:36→21:57)
[2017-07-19 04:10] LABS: ABSOLUTE EOSINOPHILS # (AUTO) 0.3 10^3/uL (0.0-0.6); ABSOLUTE LYMPHOCYTES (AUTO) 1.2 10^3/uL (0.5-4.7); ABSOLUTE MONOCYTES (AUTO) 0.4 10^3/uL (0.1-1.4); ABSOLUTE NEUT (AUTO) 2.4 10^3/uL (1.7-8.2); BASOPHILS % (AUTO) 0.6 % (0-2); EOSINOPHILS % (AUTO) 5.9 % (0-6); HEMATOCRIT 40.4 % (37.9-51.0); HEMOGLOBIN 13.7 g/dL (13.5-17.0); LYMPHOCYTES % (AUTO) 27.8 % (13-45); MEAN CORPUSCULAR HEMOGLOBIN 27.9 pg (27.0-33.4); MEAN CORPUSCULAR HGB CONC 33.9 g/dL (32.0-36.0); MEAN CORPUSCULAR VOLUME 83 fl (80-97); MONOCYTES % (AUTO) 10.1 % (3-13); PLATELET COUNT 176 10^3/uL (150-450); RED CELL DISTRIBUTION WIDTH 15.6 % (11.5-14.0); SEGMENTED NEUTROPHILS % (AUTO) 55.6 % (42-78); TOTAL CELLS COUNTED % (AUTO) 100 %; WHITE BLOOD COUNT 4.4 10^3/uL (4.0-10.5)
[2017-07-19 04:28] LABS: ALANINE AMINOTRANSFERASE 42 U/L (21-72); ALBUMIN 3.2 g/dL (3.5-5.0); ALKALINE PHOSPHATASE 53 U/L (38-126); ANION GAP 10 (5-19); ASPARTATE AMINO TRANSFERASE 38 U/L (17-59); BILIRUBIN,DIRECT 0.2 mg/dL (0.0-0.4); BILIRUBIN,TOTAL 0.2 mg/dL (0.2-1.3); BLOOD UREA NITROGEN 11 mg/dL (7-20); CARBON DIOXIDE 28 mmol/L (22-30); CHLORIDE 112 mmol/L (98-107); GLUCOSE 113 mg/dL (75-110); POTASSIUM 3.5 mmol/L (3.6-5.0); SODIUM 149.7 mmol/L (137-145); TOTAL PROTEIN 5.8 g/dL (6.3-8.2)
[2017-07-19] MEDS: ENOXAPARIN SODIUM INJ 100 MG/1 ML DISP.SYRIN SUBCUT SCH ×2 (05:08→17:13)
[2017-07-19 05:46] LABS: ARTERIAL BLOOD BASE EXCESS 3.2 mmol/L; ARTERIAL BLOOD FIO2 45%; ARTERIAL BLOOD H2CO3 1.33 mmol/L (1.05-1.35); ARTERIAL BLOOD HCO3 28.2 mmol/L (20-26); ARTERIAL BLOOD O2 SATURATION 96.5 % (94-98); ARTERIAL BLOOD PCO2 44.2 mmHg (35-45); ARTERIAL BLOOD PH 7.42 (7.35-7.45); ARTERIAL BLOOD PO2 84.6 mmHg (80-100); ARTERIAL BLOOD TOTAL CO2 29.5 mmol/L (23-27)
--- NOTE | 2017-07-19 06:35 | RADIOLOGY REPORT (SQ) ---
EXAM DESCRIPTION: XR CHEST 1 VIEW COMPLETED DATE/TME: 07/19/2017 06:00 CLINICAL HISTORY: 42 years, Male, resp failure endotracheal tube. COMPARISON: 07/16/2017 FINDINGS: Single view of the chest. Endotracheal tube with tip at the level of clavicles. NG tube with tip below the diaphragm. Mediastinal silhouette is stable. No pneumothorax or large effusion. Stable hazy left basilar opacity. Leads overlie the chest. Upper abdominal soft tissues unremarkable. Osseous structures are stable. IMPRESSION: 1. Stable appearance of the chest. 2011 [facility] [employer]- All Rights Reserved Electronically signed by: Zander Partida 07/19/2017 5:34 AM
[2017-07-19] MEDS: IPRATROPIUM/ALBUTEROL 0.5-2.5 MG/3 ML AMPUL NEB PRN ×2 (08:37→19:41)
[2017-07-19] MEDS: ACETYLCYSTEINE 20% SOLN 800 MG/4 ML VIAL.NEB NEB SCH ×2 (08:38→19:40)
[2017-07-19] MEDS ORDERED: DEXAMETHASONE SOD PHOSPHATE INJ 4 MG/1 ML VIAL IV ONE (08:46)
--- NOTE | 2017-07-19 08:56 | PDOC PROGRESS REPORT ---
Subjective Progress Note for:: 07/19/17 Subjective:: Intubated and sedated Reason For Visit: AMS,ACUTE RESP FAILURE,POSSIBLE ASPIRATION Physical Exam Vital Signs: Temp Pulse Resp BP Pulse Ox 97.7 F 73 18 102/72 98 07/19/17 06:00 07/18/17 20:00 07/19/17 06:00 07/19/17 05:35 07/19/17 06:00 Intake & Output 07/18/17 07/19/17 07/20/17 06:59 06:59 06:59 Intake Total 3286 3673 Output Total 5335 5435 Balance -2048 Weight 102.2 kg 100.5 kg General appearance: PRESENT: no acute distress, cooperative, disheveled Head exam: PRESENT: atraumatic, normocephalic Eye exam: PRESENT: conjunctiva pale, EOMI. ABSENT: nystagmus, periorbital swelling, scleral icterus Mouth exam: PRESENT: dry mucosa, neck supple, tongue midline, other - ET tube Neck exam: ABSENT: carotid bruit, JVD, lymphadenopathy, thyromegaly, tracheal deviation, tracheostomy Respiratory exam: PRESENT: prolonged expiratory phas, rhonchi, unlabored. ABSENT: retraction, stridor, tachypnea Cardiovascular exam: PRESENT: RRR, +S1, +S2. ABSENT: tachycardia Pulses: PRESENT: normal radial pulses GI/Abdominal exam: PRESENT: hypoactive bowel sounds, soft Gentrourinary exam: PRESENT: indwelling catheter Extremities exam: ABSENT: calf tenderness, clubbing, joint swelling Musculoskeletal exam: ABSENT: deformity, dislocation Neurological exam: PRESENT: awake, oriented to person Psychiatric exam: PRESENT: flat affect Skin exam: PRESENT: dry, warm Results Laboratory Results: 07/19/17 03:57 07/19/17 03:57 07/18/17 07/18/17 07/19/17 06:10 20:45 03:57 WBC 4.4 RBC 4.90 Hgb 13.7 Hct 40.4 MCV 83 MCH 27.9 MCHC 33.9 RDW 15.6 H Plt Count 176 Seg Neutrophils % 55.6 Lymphocytes % 27.8 Monocytes % 10.1 Eosinophils % 5.9 Basophils % 0.6 Absolute Neutrophils 2.4 Absolute Lymphocytes 1.2 Absolute Monocytes 0.4 Absolute Eosinophils 0.3 Absolute Basophils 0.0 Carbonic Acid HCO3/H2CO3 Ratio ABG pH ABG pCO2 ABG pO2 ABG HCO3 ABG O2 Saturation ABG Base Excess FiO2 Sodium Potassium Chloride Carbon Dioxide Anion Gap BUN Creatinine Est GFR ( Amer) Est GFR (Non-Af Amer) Glucose Calcium Magnesium 2.0 Total Bilirubin AST ALT Alkaline Phosphatase Total Protein Albumin Urine Color YELLOW Urine Appearance CLEAR Urine pH 5.0 Ur Specific [place] 1.031 Urine Protein NEGATIVE Urine Glucose (UA) NEGATIVE Urine Ketones TRACE H Urine Blood NEGATIVE Urine Nitrite NEGATIVE Ur Leukocyte Esterase NEGATIVE Urine WBC (Auto) 2 Urine RBC (Auto) 1 07/19/17 07/19/17 03:57 05:30 WBC RBC Hgb Hct MCV MCH MCHC RDW Plt Count Seg Neutrophils % Lymphocytes % Monocytes % Eosinophils % Basophils % Absolute Neutrophils Absolute Lymphocytes Absolute Monocytes Absolute Eosinophils Absolute Basophils Carbonic Acid 1.33 HCO3/H2CO3 Ratio 21:1 ABG pH 7.42 ABG pCO2 44.2 ABG pO2 84.6 ABG HCO3 28.2 H ABG O2 Saturation 96.5 ABG Base Excess 3.2 FiO2 45% Sodium 149.7 H Potassium 3.5 L Chloride 112 H Carbon Dioxide 28 Anion Gap 10 BUN 11 Creatinine 0.77 Est GFR ( Amer) > 60 Est GFR (Non-Af Amer) > 60 Glucose 113 H Calcium 9.0 Magnesium 1.9 Total Bilirubin 0.2 AST 38 ALT 42 Alkaline Phosphatase 53 Total Protein 5.8 L Albumin 3.2 L Urine Color Urine Appearance Urine pH Ur Specific [place] Urine Protein Urine Glucose (UA) Urine Ketones Urine Blood Urine Nitrite Ur Leukocyte Esterase Urine WBC (Auto) Urine RBC (Auto) 07/14/17 17:44 Blood Blood Culture - Final Micrococcus Species 07/15/17 07/15/17 07/16/17 03:46 03:46 04:23 Creatine Kinase 3071 H 1259 H NT-Pro-B Natriuret Pep 736 H Impressions: Head CT 07/14/17 10:50 IMPRESSION: NORMAL BRAIN CT WITHOUT CONTRAST. EVIDENCE OF ACUTE STROKE: NO. KUB X-Ray 07/17/17 11:52 IMPRESSION: NG tube is identified coiled in the left upper quadrant presumably in the fundus of the stomach. Other findings as noted above Chest X-Ray 07/19/17 06:00 IMPRESSION: 1. Stable appearance of the chest. 2010 [employer]- All Rights Reserved Assessment & Plan - Diagnosis (1) Acute respiratory failure Is this a current diagnosis for this admission?: Yes Plan: PAO2/FIO2 = 189 CT -pna-min vol;rr;FIO2,airway pressures suggest successful extubation (2) Altered mental status Qualifiers: Altered mental status type: coma Coma depth: [place] coma 3-8 Coma timing : unspecified coma timing Qualified Code(s): R40.2430 - [place] coma scale score 3-8, unspecified time Is this a current diagnosis for this admission?: Yes (3) Aspiration into airway Qualifiers: Encounter type: initial encounter Qualified Code(s): T17.908A - Unspecified foreign body in respiratory tract, part unspecified causing other injury, initial encounter Is this a current diagnosis for this admission?: Yes Plan: R lower lobe per CXR (4) Anxiety and depression Is this a current diagnosis for this admission?: Yes Plan: Resume home meds this time (5) Bipolar disorder Qualifiers: Active/Remission status: remission status unspecified Qualified Code(s): F31.9 - Bipolar disorder, unspecified Is this a current diagnosis for this admission?: Yes (6) GERD (gastroesophageal reflux disease) Qualifiers: Esophagitis presence: without esophagitis Qualified Code(s): K21.9 - Gastro -esophageal reflux disease without esophagitis Is this a current diagnosis for this admission?: Yes - Time Total Critical Time (Minutes): 55
[2017-07-19] MEDS: BUSPIRONE HCL 10 MG TABLET NG SCH ×3 (10:37→17:14)
[2017-07-19] MEDS: FAMOTIDINE INJ/PF 20 MG/2 ML SDV IV SCH ×2 (10:37→21:57)
[2017-07-19] MEDS: GABAPENTIN 300 MG CAPSULE NG SCH ×2 (10:37→21:57)
[2017-07-19] MEDS: NYSTATIN TOPICAL POWDER 15 GM TP SCH ×2 (10:37→17:12)
[2017-07-19] MEDS: NICOTINE 14 MG/24 HR PATCH.TD24 TD SCH (10:38)
[2017-07-19] MEDS: LEVOFLOXACIN 750 MG/D5W RTU 750 MG/150 ML RTUPB IV SCH (15:12)
[2017-07-19 15:43] LABS: ARTERIAL BLOOD BASE EXCESS 2.4 mmol/L; ARTERIAL BLOOD H2CO3 1.01 mmol/L (1.05-1.35); ARTERIAL BLOOD HCO3 25.2 mmol/L (20-26); ARTERIAL BLOOD O2 SATURATION 95.7 % (94-98); ARTERIAL BLOOD PCO2 33.7 mmHg (35-45); ARTERIAL BLOOD PH 7.49 (7.35-7.45); ARTERIAL BLOOD PO2 72.1 mmHg (80-100); ARTERIAL BLOOD TOTAL CO2 26.2 mmol/L (23-27)
[2017-07-19 15:44] LABS: ARTERIAL BLOOD FIO2 2L
[2017-07-19] MEDS: HALOPERIDOL 5 MG TABLET NG SCH (17:14)
--- NOTE | 2017-07-19 20:08 | PDOC PROGRESS REPORT ---
Subjective Progress Note for:: 07/19/17 Subjective:: Patient extubated, he wants to eat regular food Reason For Visit: AMS,ACUTE RESP FAILURE,POSSIBLE ASPIRATION Physical Exam Vital Signs: Temp Pulse Resp BP Pulse Ox 98.3 F 92 17 135/85 H 94 07/19/17 18:41 07/19/17 18:41 07/19/17 18:41 07/19/17 18:41 07/19/17 18:41 Intake & Output 07/18/17 07/19/17 07/20/17 06:59 06:59 06:59 Intake Total 3286 3673 837 Output Total 5335 5435 1900 Balance -2049 -1762 -1063 Weight 102.2 kg 100.5 kg General appearance: PRESENT: no acute distress, well-developed, well-nourished Head exam: PRESENT: atraumatic, normocephalic Eye exam: PRESENT: conjunctiva pink, EOMI, PERRLA Ear exam: PRESENT: normal external ear exam Mouth exam: PRESENT: moist, tongue midline Neck exam: PRESENT: full ROM Respiratory exam: PRESENT: clear to auscultation wan Cardiovascular exam: PRESENT: RRR, +S1, +S2 Pulses: PRESENT: normal dorsalis pedis pul, +2 pedal pulses bilateral Vascular exam: PRESENT: normal capillary refill GI/Abdominal exam: PRESENT: normal bowel sounds, soft Rectal exam: PRESENT: deferred Neurological exam: PRESENT: alert, awake, oriented to person, oriented to place , oriented to time, oriented to situation, CN II-XII grossly intact Psychiatric exam: PRESENT: appropriate affect, normal mood Skin exam: PRESENT: dry, intact, warm Results Laboratory Results: 07/19/17 03:57 07/19/17 03:57 07/18/17 07/19/17 07/19/17 20:45 03:57 03:57 WBC 4.4 RBC 4.90 Hgb 13.7 Hct 40.4 MCV 83 MCH 27.9 MCHC 33.9 RDW 15.6 H Plt Count 176 Seg Neutrophils % 55.6 Lymphocytes % 27.8 Monocytes % 10.1 Eosinophils % 5.9 Basophils % 0.6 Absolute Neutrophils 2.4 Absolute Lymphocytes 1.2 Absolute Monocytes 0.4 Absolute Eosinophils 0.3 Absolute Basophils 0.0 Carbonic Acid HCO3/H2CO3 Ratio ABG pH ABG pCO2 ABG pO2 ABG HCO3 ABG O2 Saturation ABG Base Excess FiO2 Sodium 149.7 H Potassium 3.5 L Chloride 112 H Carbon Dioxide 28 Anion Gap 10 BUN 11 Creatinine 0.77 Est GFR ( Amer) > 60 Est GFR (Non-Af Amer) > 60 Glucose 113 H Calcium 9.0 Magnesium 1.9 Total Bilirubin 0.2 AST 38 ALT 42 Alkaline Phosphatase 53 Total Protein 5.8 L Albumin 3.2 L Urine Color YELLOW Urine Appearance CLEAR Urine pH 5.0 Ur Specific [place] 1.031 Urine Protein NEGATIVE Urine Glucose (UA) NEGATIVE Urine Ketones TRACE H Urine Blood NEGATIVE Urine Nitrite NEGATIVE Ur Leukocyte Esterase NEGATIVE Urine WBC (Auto) 2 Urine RBC (Auto) 1 07/19/17 07/19/17 05:30 15:30 WBC RBC Hgb Hct MCV MCH MCHC RDW Plt Count Seg Neutrophils % Lymphocytes % Monocytes % Eosinophils % Basophils % Absolute Neutrophils Absolute Lymphocytes Absolute Monocytes Absolute Eosinophils Absolute Basophils Carbonic Acid 1.33 1.01 L HCO3/H2CO3 Ratio 21:1 24:1 ABG pH 7.42 7.49 H ABG pCO2 44.2 33.7 L ABG pO2 84.6 72.1 L ABG HCO3 28.2 H 25.2 ABG O2 Saturation 96.5 95.7 ABG Base Excess 3.2 2.4 FiO2 45% 2L Sodium Potassium Chloride Carbon Dioxide Anion Gap BUN Creatinine Est GFR ( Amer) Est GFR (Non-Af Amer) Glucose Calcium Magnesium Total Bilirubin AST ALT Alkaline Phosphatase Total Protein Albumin Urine Color Urine Appearance Urine pH Ur Specific [place] Urine Protein Urine Glucose (UA) Urine Ketones Urine Blood Urine Nitrite Ur Leukocyte Esterase Urine WBC (Auto) Urine RBC (Auto) 07/14/17 13:34 Blood Blood Culture - Final NO GROWTH IN 5 DAYS 07/15/17 07/15/17 07/16/17 03:46 03:46 04:23 Creatine Kinase 3071 H 1259 H NT-Pro-B Natriuret Pep 736 H Impressions: Head CT 07/14/17 10:50 IMPRESSION: NORMAL BRAIN CT WITHOUT CONTRAST. EVIDENCE OF ACUTE STROKE: NO. KUB X-Ray 07/17/17 11:52 IMPRESSION: NG tube is identified coiled in the left upper quadrant presumably in the fundus of the stomach. Other findings as noted above Chest X-Ray 07/19/17 06:00 IMPRESSION: 1. Stable appearance of the chest. 2010 [email or web address] [employer]- All Rights Reserved Assessment & Plan - Diagnosis (1) Acute respiratory failure Is this a current diagnosis for this admission?: Yes (2) Pneumonia Qualifiers: Pneumonia type: due to unspecified organism Lung location: lower lobe of lung Is this a current diagnosis for this admission?: Yes (3) Schizophrenia Qualifiers: Schizophrenia type: unspecified Qualified Code(s): F20.9 - Schizophrenia, unspecified Is this a current diagnosis for this admission?: Yes (4) Sepsis Qualifiers: Sepsis type: sepsis due to unspecified organism Qualified Code(s): A41.9 - Sepsis, unspecified organism Is this a current diagnosis for this admission?: Yes (5) Deep vein thrombosis of right upper extremity Qualifiers: Affected thrombotic vein of extremity: brachial Chronicity: acute Qualified Code(s): I82.621 - Acute embolism and thrombosis of deep veins of right upper extremity Is this a current diagnosis for this admission?: Yes
[2017-07-20] MEDS: AMPICILLIN SODIUM/SULBACTAM NA 3 GM in NORMAL SALINE 100 ML IV SCH ×2 (00:24→05:29)
[2017-07-20] MEDS: IPRATROPIUM/ALBUTEROL 0.5-2.5 MG/3 ML AMPUL NEB PRN ×3 (01:52→21:20)
[2017-07-20] MEDS: OXYCODONE HCL IR 5 MG TABLET NG PRN ×3 (04:19→15:15)
[2017-07-20 04:23] LABS: HEMATOCRIT 40.1 % (37.9-51.0); HEMOGLOBIN 13.2 g/dL (13.5-17.0); MEAN CORPUSCULAR HEMOGLOBIN 27.5 pg (27.0-33.4); MEAN CORPUSCULAR VOLUME 83 fl (80-97); PLATELET COUNT 183 10^3/uL (150-450); RED BLOOD COUNT 4.82 10^6/uL (4.35-5.55); RED CELL DISTRIBUTION WIDTH 15.4 % (11.5-14.0)
[2017-07-20 04:24] LABS: WHITE BLOOD COUNT 13.8 10^3/uL (4.0-10.5)
[2017-07-20 04:28] LABS: ANION GAP 12 (5-19); BLOOD UREA NITROGEN 16 mg/dL (7-20); CALCIUM 9.5 mg/dL (8.4-10.2); CARBON DIOXIDE 25 mmol/L (22-30); CHLORIDE 111 mmol/L (98-107); GLUCOSE 116 mg/dL (75-110); POTASSIUM 3.4 mmol/L (3.6-5.0); SODIUM 148.2 mmol/L (137-145)
[2017-07-20 04:45] LABS: ARTERIAL BLOOD BASE EXCESS 1.8 mmol/L; ARTERIAL BLOOD FIO2 3L; ARTERIAL BLOOD H2CO3 1.07 mmol/L (1.05-1.35); ARTERIAL BLOOD HCO3 25.2 mmol/L (20-26); ARTERIAL BLOOD O2 SATURATION 90.5 % (94-98); ARTERIAL BLOOD PCO2 35.5 mmHg (35-45); ARTERIAL BLOOD PH 7.47 (7.35-7.45); ARTERIAL BLOOD PO2 54.7 mmHg (80-100); ARTERIAL BLOOD TOTAL CO2 26.3 mmol/L (23-27)
[2017-07-20] MEDS: ENOXAPARIN SODIUM INJ 100 MG/1 ML DISP.SYRIN SUBCUT SCH ×2 (05:28→19:00)
[2017-07-20] MEDS: DEXTROSE 5%-WATER 1000 ML 1,000 ML IV PRN (05:30)
[2017-07-20] MEDS: ACETYLCYSTEINE 20% SOLN 800 MG/4 ML VIAL.NEB NEB SCH ×2 (08:41→21:20)
--- NOTE | 2017-07-20 09:09 | RADIOLOGY REPORT (SQ) ---
EXAM DESCRIPTION: CHEST SINGLE VIEW COMPLETED DATE/TIME: 07/20/2017 5:12 am REASON FOR STUDY: resp failure COMPARISON: 07/19/2017. EXAM PARAMETERS: NUMBER OF VIEWS: One view. TECHNIQUE: Single frontal radiographic view of the chest acquired. RADIATION DOSE: NA LIMITATIONS: None. FINDINGS: LUNGS AND PLEURA: Worsening airspace disease in the left lung. Probable faint developing airspace disease in the right mid lung. No large pleural effusion. MEDIASTINUM AND HILAR STRUCTURES: No masses. Contour normal. HEART AND VASCULAR STRUCTURES: Heart upper limits of normal in size. Normal vasculature. BONES: No acute findings. HARDWARE: Interval removal of the endotracheal tube and nasogastric tube. OTHER: No other significant finding. IMPRESSION: WORSENING AIRSPACE DISEASE IN THE LEFT LUNG AND POSSIBLE DEVELOPING AIRSPACE DISEASE IN THE RIGHT LUNG. TECHNICAL DOCUMENTATION: JOB ID: [id number] [employer]- All Rights Reserved Reading location - IP/workstation name: [email or web address]
[2017-07-20] MEDS: GABAPENTIN 300 MG CAPSULE NG SCH ×2 (10:49→21:44)
[2017-07-20] MEDS: NICOTINE 14 MG/24 HR PATCH.TD24 TD SCH (10:49)
[2017-07-20] MEDS: FAMOTIDINE INJ/PF 20 MG/2 ML SDV IV SCH ×2 (10:49→21:46)
[2017-07-20] MEDS: NYSTATIN TOPICAL POWDER 15 GM TP SCH ×2 (10:50→19:01)
[2017-07-20] MEDS: BUSPIRONE HCL 10 MG TABLET NG SCH ×3 (10:50→19:00)
[2017-07-20] MEDS ORDERED: NAFCILLIN SODIUM 1 GM in DEXTROSE 5%-WATER 50 ML IV ONE (11:00)
--- NOTE | 2017-07-20 11:15 | PDOC PROGRESS REPORT ---
Subjective Progress Note for:: 07/20/17 Subjective:: slightly confused Reason For Visit: AMS,ACUTE RESP FAILURE,POSSIBLE ASPIRATION Physical Exam Vital Signs: Temp Pulse Resp BP Pulse Ox 98.3 F 84 17 121/77 93 07/20/17 08:00 07/20/17 08:00 07/20/17 08:00 07/20/17 08:00 07/20/17 08:00 Intake & Output 07/19/17 07/20/17 07/21/17 06:59 06:59 06:59 Intake Total 3673 2067 Output Total 5435 9020 Balance -1762 -372 Weight 100.5 kg 100.2 kg General appearance: PRESENT: no acute distress, cooperative, disheveled, obese Head exam: PRESENT: atraumatic, normocephalic Eye exam: PRESENT: conjunctiva pale, EOMI. ABSENT: nystagmus, periorbital swelling, scleral icterus Mouth exam: PRESENT: moist, neck supple, tongue midline Neck exam: ABSENT: carotid bruit, JVD, lymphadenopathy, thyromegaly, tracheal deviation, tracheostomy Respiratory exam: PRESENT: decreased breath sounds, prolonged expiratory phas, rhonchi, unlabored. ABSENT: rales, retraction, stridor Cardiovascular exam: PRESENT: RRR, +S1, +S2 Pulses: PRESENT: normal radial pulses GI/Abdominal exam: PRESENT: normal bowel sounds Gentrourinary exam: PRESENT: indwelling catheter Extremities exam: ABSENT: calf tenderness, clubbing, joint swelling Musculoskeletal exam: ABSENT: ambulatory, deformity, dislocation Neurological exam: PRESENT: awake, oriented to person, oriented to place Psychiatric exam: PRESENT: flat affect Skin exam: PRESENT: dry, warm Results Laboratory Results: 07/20/17 03:52 07/20/17 03:52 07/19/17 07/20/17 07/20/17 15:30 03:52 03:52 WBC 13.8 H D RBC 4.82 Hgb 13.2 L Hct 40.1 MCV 83 MCH 27.5 MCHC 33.0 RDW 15.4 H Plt Count 183 Carbonic Acid 1.01 L HCO3/H2CO3 Ratio 24:1 ABG pH 7.49 H ABG pCO2 33.7 L ABG pO2 72.1 L ABG HCO3 25.2 ABG O2 Saturation 95.7 ABG Base Excess 2.4 FiO2 2L Sodium 148.2 H Potassium 3.4 L Chloride 111 H Carbon Dioxide 25 Anion Gap 12 BUN 16 Creatinine 0.72 Est GFR ( Amer) > 60 Est GFR (Non-Af Amer) > 60 Glucose 116 H Calcium 9.5 Magnesium 2.0 07/20/17 04:30 WBC RBC Hgb Hct MCV MCH MCHC RDW Plt Count Carbonic Acid 1.07 HCO3/H2CO3 Ratio 23:1 ABG pH 7.47 H ABG pCO2 35.5 ABG pO2 54.7 L ABG HCO3 25.2 ABG O2 Saturation 90.5 L ABG Base Excess 1.8 FiO2 3L Sodium Potassium Chloride Carbon Dioxide Anion Gap BUN Creatinine Est GFR ( Amer) Est GFR (Non-Af Amer) Glucose Calcium Magnesium 07/14/17 13:34 Blood Blood Culture - Final NO GROWTH IN 5 DAYS 07/15/17 07/15/17 07/16/17 03:46 03:46 04:23 Creatine Kinase 3071 H 1259 H NT-Pro-B Natriuret Pep 736 H Impressions: Head CT 07/14/17 10:50 IMPRESSION: NORMAL BRAIN CT WITHOUT CONTRAST. EVIDENCE OF ACUTE STROKE: NO. KUB X-Ray 07/17/17 11:52 IMPRESSION: NG tube is identified coiled in the left upper quadrant presumably in the fundus of the stomach. Other findings as noted above Assessment & Plan - Diagnosis (1) Acute respiratory failure Is this a current diagnosis for this admission?: Yes Plan: 24 hours status post extubation stable at this time (2) Altered mental status Qualifiers: Altered mental status type: coma Coma depth: [place] coma 3-8 Coma timing : unspecified coma timing Qualified Code(s): R40.2430 - [place] coma scale score 3-8, unspecified time Is this a current diagnosis for this admission?: Yes Plan: Unchanged (3) Aspiration into airway Qualifiers: Encounter type: initial encounter Qualified Code(s): T17.908A - Unspecified foreign body in respiratory tract, part unspecified causing other injury, initial encounter Is this a current diagnosis for this admission?: Yes Plan: R lower lobe per CXR (4) Anxiety and depression Is this a current diagnosis for this admission?: Yes Plan: Resume home meds this time (5) Bipolar disorder Qualifiers: Active/Remission status: remission status unspecified Qualified Code(s): F31.9 - Bipolar disorder, unspecified Is this a current diagnosis for this admission?: Yes (6) GERD (gastroesophageal reflux disease) Qualifiers: Esophagitis presence: without esophagitis Qualified Code(s): K21.9 - Gastro -esophageal reflux disease without esophagitis Is this a current diagnosis for this admission?: Yes - Time Total Critical Time (Minutes): 40
[2017-07-20] MEDS: LEVOFLOXACIN 750 MG/D5W RTU 750 MG/150 ML RTUPB IV SCH (11:32)
[2017-07-20] MEDS: NAFCILLIN SODIUM 1 GM in DEXTROSE 5%-WATER 50 ML IV SCH ×3 (15:09→23:18)
[2017-07-20] MEDS: HALOPERIDOL 5 MG TABLET NG SCH (18:58)
[2017-07-20] MEDS ORDERED: (PENDING PHARMACY ID) (Umeclidinium Brm/Vilanterol Tr [Anoro Ellipta 62.5-25 Mcg Inh] 1 PU IH SCH (19:00)
[2017-07-20] MEDS ORDERED: (PENDING PHARMACY ID) (Midodrine Hcl [Midodrine Hcl] 10 MG) PO SCH (19:00)
[2017-07-20] MEDS ORDERED: OXYCODONE HCL 60 MG PO SCH (19:00)
[2017-07-20] MEDS ORDERED: (PENDING PHARMACY ID) (Haloperidol [Haloperidol] 10 MG) PO SCH (19:00)
[2017-07-20] MEDS ORDERED: (PENDING PHARMACY ID) (Benztropine Mesylate [Benztropine Mesylate 2 Mg Tablet] 2 MG) PO SCH (19:00)
--- NOTE | 2017-07-20 20:56 | PDOC PROGRESS REPORT ---
Subjective Progress Note for:: 07/20/17 Subjective:: Patient was seen in ICU is somewhat confused, will be downgraded to medical floor Reason For Visit: AMS,ACUTE RESP FAILURE,POSSIBLE ASPIRATION Physical Exam Vital Signs: Temp Pulse Resp BP Pulse Ox 98.2 F 91 20 126/88 H 90 L 07/20/17 19:56 07/20/17 18:00 07/20/17 19:00 07/20/17 18:55 07/20/17 19:00 Intake & Output 07/19/17 07/20/17 07/21/17 06:59 06:59 06:59 Intake Total 3673 2067 750 Output Total 5430 2400 1300 Balance -5298 -333 -543 Weight 100.5 kg 100.2 kg General appearance: PRESENT: no acute distress Eye exam: PRESENT: PERRLA Respiratory exam: PRESENT: clear to auscultation wan Cardiovascular exam: PRESENT: +S1, +S2 GI/Abdominal exam: PRESENT: soft Results Laboratory Results: 07/20/17 03:52 07/20/17 03:52 07/20/17 07/20/17 07/20/17 03:52 03:52 04:30 WBC 13.8 H D RBC 4.82 Hgb 13.2 L Hct 40.1 MCV 83 MCH 27.5 MCHC 33.0 RDW 15.4 H Plt Count 183 Carbonic Acid 1.07 HCO3/H2CO3 Ratio 23:1 ABG pH 7.47 H ABG pCO2 35.5 ABG pO2 54.7 L ABG HCO3 25.2 ABG O2 Saturation 90.5 L ABG Base Excess 1.8 FiO2 3L Sodium 148.2 H Potassium 3.4 L Chloride 111 H Carbon Dioxide 25 Anion Gap 12 BUN 16 Creatinine 0.72 Est GFR ( Amer) > 60 Est GFR (Non-Af Amer) > 60 Glucose 116 H Calcium 9.5 Magnesium 2.0 07/14/17 13:34 Blood Blood Culture - Final NO GROWTH IN 5 DAYS 07/15/17 07/15/17 07/16/17 03:46 03:46 04:23 Creatine Kinase 3071 H 1259 H NT-Pro-B Natriuret Pep 736 H Impressions: Head CT 07/14/17 10:50 IMPRESSION: NORMAL BRAIN CT WITHOUT CONTRAST. EVIDENCE OF ACUTE STROKE: NO. KUB X-Ray 07/17/17 11:52 IMPRESSION: NG tube is identified coiled in the left upper quadrant presumably in the fundus of the stomach. Other findings as noted above Chest X-Ray 07/20/17 06:00 IMPRESSION: WORSENING AIRSPACE DISEASE IN THE LEFT LUNG AND POSSIBLE DEVELOPING AIRSPACE DISEASE IN THE RIGHT LUNG. Assessment & Plan - Diagnosis (1) Acute respiratory failure Is this a current diagnosis for this admission?: Yes (2) Pneumonia Qualifiers: Pneumonia type: due to unspecified organism Lung location: lower lobe of lung Is this a current diagnosis for this admission?: Yes (3) Schizophrenia Qualifiers: Schizophrenia type: unspecified Qualified Code(s): F20.9 - Schizophrenia, unspecified Is this a current diagnosis for this admission?: Yes (4) Sepsis Qualifiers: Sepsis type: sepsis due to unspecified organism Qualified Code(s): A41.9 - Sepsis, unspecified organism Is this a current diagnosis for this admission?: Yes (5) Deep vein thrombosis of right upper extremity Qualifiers: Affected thrombotic vein of extremity: brachial Chronicity: acute Qualified Code(s): I82.621 - Acute embolism and thrombosis of deep veins of right upper extremity Is this a current diagnosis for this admission?: Yes - Plan Summary Plan Summary: Patient to be transferred to medical floor, transfer order in the chart
[2017-07-20] MEDS: ATORVASTATIN CALCIUM 10 MG TABLET PO SCH (21:43)
[2017-07-20] MEDS: BENZTROPINE MESYLATE 1 MG TABLET PO SCH (21:43)
[2017-07-20] MEDS: METOPROLOL SUCCINATE 50 MG TAB.SR.24H PO SCH (21:44)
[2017-07-20] MEDS: TAMSULOSIN HCL 0.4 MG CAP.SR.24H PO SCH (21:44)
[2017-07-20] MEDS: OXYCODONE HCL SR 40 MG TABLET PO SCH (21:46)
[2017-07-20] MEDS ORDERED: GABAPENTIN 300 MG CAPSULE PO SCH (22:00)
[2017-07-20] MEDS ORDERED: BUSPIRONE HCL 10 MG TABLET PO SCH (22:00)
[2017-07-20] MEDS: BACLOFEN 10 MG TABLET PO SCH (23:18)
[2017-07-20] MEDS: ENALAPRIL MALEATE 10 MG TABLET PO SCH (23:18)
[2017-07-21] MEDS: OXYCODONE HCL IR 5 MG TABLET NG PRN (02:09)
[2017-07-21] MEDS: NAFCILLIN SODIUM 1 GM in DEXTROSE 5%-WATER 50 ML IV SCH ×5 (03:27→23:41)
[2017-07-21] MEDS ORDERED: OXYCODONE HCL IR 5 MG TABLET PO PRN (04:00)
[2017-07-21] MEDS ORDERED: ACETAMINOPHEN 325 MG TABLET PO PRN (04:06)
[2017-07-21] MEDS: ENOXAPARIN SODIUM INJ 100 MG/1 ML DISP.SYRIN SUBCUT SCH ×2 (05:32→17:44)
[2017-07-21] MEDS: OXYCODONE HCL SR 40 MG TABLET PO SCH ×3 (05:32→21:48)
[2017-07-21] MEDS: DEXTROSE 5%-WATER 1000 ML 1,000 ML IV PRN ×2 (05:32→17:39)
[2017-07-21] MEDS: ACETYLCYSTEINE 20% SOLN 800 MG/4 ML VIAL.NEB NEB SCH ×2 (08:02→19:48)
[2017-07-21] MEDS: IPRATROPIUM/ALBUTEROL 0.5-2.5 MG/3 ML AMPUL NEB PRN ×2 (08:02→19:48)
[2017-07-21] MEDS: LANSOPRAZOLE 30 MG TAB.RAP.DR PO SCH (08:37)
[2017-07-21] MEDS: FENOFIBRATE NANOCRYSTALLIZED 145 MG TABLET PO SCH (10:53)
[2017-07-21] MEDS: BENZTROPINE MESYLATE 1 MG TABLET PO SCH ×2 (10:53→21:48)
[2017-07-21] MEDS: NICOTINE 14 MG/24 HR PATCH.TD24 TD SCH (10:53)
[2017-07-21] MEDS: GABAPENTIN 300 MG CAPSULE PO SCH ×2 (10:53→21:48)
[2017-07-21] MEDS: FAMOTIDINE INJ/PF 20 MG/2 ML SDV IV SCH ×2 (10:53→21:48)
[2017-07-21] MEDS: BUSPIRONE HCL 10 MG TABLET PO SCH ×3 (10:54→17:40)
[2017-07-21] MEDS: BACLOFEN 10 MG TABLET PO SCH ×4 (10:54→21:48)
[2017-07-21] MEDS: FLUOXETINE HCL 20 MG CAPSULE PO SCH (10:54)
[2017-07-21] MEDS: NYSTATIN TOPICAL POWDER 15 GM TP SCH ×2 (10:56→17:49)
--- NOTE | 2017-07-21 12:33 | PDOC PROGRESS REPORT ---
Subjective Progress Note for:: 07/21/17 Subjective:: Patient developed acute urinary retention requiring Grant catheterization Reason For Visit: AMS,ACUTE RESP FAILURE,POSSIBLE ASPIRATION Physical Exam Vital Signs: Temp Pulse Resp BP Pulse Ox 98.6 F 82 18 115/71 98 07/21/17 08:12 07/21/17 08:12 07/21/17 08:12 07/21/17 08:12 07/21/17 08:12 Intake & Output 07/20/17 07/21/17 07/22/17 06:59 06:59 06:59 Intake Total 2067 1677 Output Total 2400 1974 Balance -333 -298 Weight 100.2 kg 100.9 kg General appearance: PRESENT: no acute distress Eye exam: PRESENT: PERRLA Respiratory exam: PRESENT: clear to auscultation wan Cardiovascular exam: PRESENT: +S1, +S2 GI/Abdominal exam: PRESENT: soft Neurological exam: PRESENT: alert Results Laboratory Results: 07/20/17 03:52 07/20/17 03:52 07/15/17 07/15/17 07/16/17 03:46 03:46 04:23 Creatine Kinase 3071 H 1259 H NT-Pro-B Natriuret Pep 736 H Impressions: Head CT 07/14/17 10:50 IMPRESSION: NORMAL BRAIN CT WITHOUT CONTRAST. EVIDENCE OF ACUTE STROKE: NO. KUB X-Ray 07/17/17 11:52 IMPRESSION: NG tube is identified coiled in the left upper quadrant presumably in the fundus of the stomach. Other findings as noted above Chest X-Ray 07/20/17 06:00 IMPRESSION: WORSENING AIRSPACE DISEASE IN THE LEFT LUNG AND POSSIBLE DEVELOPING AIRSPACE DISEASE IN THE RIGHT LUNG. Assessment & Plan - Diagnosis (1) Acute respiratory failure Is this a current diagnosis for this admission?: Yes (2) Pneumonia Qualifiers: Pneumonia type: due to unspecified organism Lung location: lower lobe of lung Is this a current diagnosis for this admission?: Yes (3) Schizophrenia Qualifiers: Schizophrenia type: unspecified Qualified Code(s): F20.9 - Schizophrenia, unspecified Is this a current diagnosis for this admission?: Yes (4) Sepsis Qualifiers: Sepsis type: sepsis due to unspecified organism Qualified Code(s): A41.9 - Sepsis, unspecified organism Is this a current diagnosis for this admission?: Yes (5) Deep vein thrombosis of right upper extremity Qualifiers: Affected thrombotic vein of extremity: brachial Chronicity: acute Qualified Code(s): I82.621 - Acute embolism and thrombosis of deep veins of right upper extremity Is this a current diagnosis for this admission?: Yes (6) Acute urinary retention Is this a current diagnosis for this admission?: Yes
[2017-07-21] MEDS: LEVOFLOXACIN 750 MG/D5W RTU 750 MG/150 ML RTUPB IV SCH (15:55)
[2017-07-21] MEDS: MIDODRINE HCL 5 MG TABLET PO SCH (15:58)
[2017-07-21] MEDS: HALOPERIDOL 5 MG TABLET PO SCH (17:42)
[2017-07-21] MEDS ORDERED: HALOPERIDOL 5 MG TABLET PO SCH (18:00)
[2017-07-21] MEDS: TAMSULOSIN HCL 0.4 MG CAP.SR.24H PO SCH (21:48)
[2017-07-21] MEDS: ATORVASTATIN CALCIUM 10 MG TABLET PO SCH (21:48)
[2017-07-21] MEDS: METOPROLOL SUCCINATE 50 MG TAB.SR.24H PO SCH (21:48)
[2017-07-21] MEDS: ENALAPRIL MALEATE 10 MG TABLET PO SCH (21:48)
[2017-07-22] MEDS: NAFCILLIN SODIUM 1 GM in DEXTROSE 5%-WATER 50 ML IV SCH ×5 (05:58→20:35)
[2017-07-22] MEDS: OXYCODONE HCL SR 40 MG TABLET PO SCH ×3 (05:59→21:44)
[2017-07-22] MEDS: ENOXAPARIN SODIUM INJ 100 MG/1 ML DISP.SYRIN SUBCUT SCH ×2 (06:00→18:00)
[2017-07-22] MEDS: DEXTROSE 5%-WATER 1000 ML 1,000 ML IV PRN ×2 (06:01→20:35)
[2017-07-22] MEDS: IPRATROPIUM/ALBUTEROL 0.5-2.5 MG/3 ML AMPUL NEB PRN ×2 (08:17→20:02)
[2017-07-22] MEDS: ACETYLCYSTEINE 20% SOLN 800 MG/4 ML VIAL.NEB NEB SCH ×2 (08:17→20:04)
[2017-07-22] MEDS: LANSOPRAZOLE 30 MG TAB.RAP.DR PO SCH (08:37)
[2017-07-22] MEDS: NICOTINE 14 MG/24 HR PATCH.TD24 TD SCH (11:10)
[2017-07-22] MEDS: FAMOTIDINE INJ/PF 20 MG/2 ML SDV IV SCH ×2 (11:10→21:43)
[2017-07-22] MEDS: GABAPENTIN 300 MG CAPSULE PO SCH ×2 (11:11→21:43)
[2017-07-22] MEDS: BUSPIRONE HCL 10 MG TABLET PO SCH ×3 (11:11→17:59)
[2017-07-22] MEDS: BACLOFEN 10 MG TABLET PO SCH ×4 (11:11→21:43)
[2017-07-22] MEDS: BENZTROPINE MESYLATE 1 MG TABLET PO SCH ×2 (11:11→21:42)
[2017-07-22] MEDS: FLUOXETINE HCL 20 MG CAPSULE PO SCH (11:12)
[2017-07-22] MEDS: FENOFIBRATE NANOCRYSTALLIZED 145 MG TABLET PO SCH (11:12)
--- NOTE | 2017-07-22 12:39 | PDOC PROGRESS REPORT ---
Subjective Progress Note for:: 07/22/17 Subjective:: He has bilateral, palmar erythema ,the right palmar erythema is painful Reason For Visit: AMS,ACUTE RESP FAILURE,POSSIBLE ASPIRATION Physical Exam Vital Signs: Temp Pulse Resp BP Pulse Ox 98.4 F 85 19 102/55 L 94 07/22/17 11:22 07/22/17 11:22 07/22/17 11:22 07/22/17 11:22 07/22/17 11:22 Intake & Output 07/21/17 07/22/17 07/23/17 06:59 06:59 06:59 Intake Total 1677 3653 Output Total 1974 4125 Balance -298 -472 Weight 100.9 kg 100.9 kg General appearance: PRESENT: no acute distress Eye exam: PRESENT: PERRLA Respiratory exam: PRESENT: clear to auscultation wan Cardiovascular exam: PRESENT: +S1, +S2 GI/Abdominal exam: PRESENT: soft Neurological exam: PRESENT: alert, CN II-XII grossly intact Results Laboratory Results: 07/20/17 03:52 07/20/17 03:52 07/15/17 07/15/17 07/16/17 03:46 03:46 04:23 Creatine Kinase 3071 H 1259 H NT-Pro-B Natriuret Pep 736 H Impressions: Head CT 07/14/17 10:50 IMPRESSION: NORMAL BRAIN CT WITHOUT CONTRAST. EVIDENCE OF ACUTE STROKE: NO. KUB X-Ray 07/17/17 11:52 IMPRESSION: NG tube is identified coiled in the left upper quadrant presumably in the fundus of the stomach. Other findings as noted above Chest X-Ray 07/20/17 06:00 IMPRESSION: WORSENING AIRSPACE DISEASE IN THE LEFT LUNG AND POSSIBLE DEVELOPING AIRSPACE DISEASE IN THE RIGHT LUNG. Assessment & Plan - Diagnosis (1) Acute respiratory failure Is this a current diagnosis for this admission?: Yes (2) Pneumonia Qualifiers: Pneumonia type: due to unspecified organism Lung location: lower lobe of lung Is this a current diagnosis for this admission?: Yes (3) Schizophrenia Qualifiers: Schizophrenia type: unspecified Qualified Code(s): F20.9 - Schizophrenia, unspecified Is this a current diagnosis for this admission?: Yes (4) Sepsis Qualifiers: Sepsis type: sepsis due to unspecified organism Qualified Code(s): A41.9 - Sepsis, unspecified organism Is this a current diagnosis for this admission?: Yes (5) Deep vein thrombosis of right upper extremity Qualifiers: Affected thrombotic vein of extremity: brachial Chronicity: acute Qualified Code(s): I82.621 - Acute embolism and thrombosis of deep veins of right upper extremity Is this a current diagnosis for this admission?: Yes (6) Acute urinary retention Is this a current diagnosis for this admission?: Yes (7) Palmar erythema Is this a current diagnosis for this admission?: Yes Plan: No history of liver disease, the etiology is not clear, the right palmar erythema is painful, applied topical clobetasol cream
[2017-07-22 13:19] LABS: ABSOLUTE BASOPHILS # (AUTO) 0.1 10^3/uL (0.0-0.2); ABSOLUTE EOSINOPHILS # (AUTO) 0.2 10^3/uL (0.0-0.6); ABSOLUTE LYMPHOCYTES (AUTO) 1.9 10^3/uL (0.5-4.7); ABSOLUTE MONOCYTES (AUTO) 0.8 10^3/uL (0.1-1.4); ABSOLUTE NEUT (AUTO) 4.1 10^3/uL (1.7-8.2); BASOPHILS % (AUTO) 0.8 % (0-2); HEMATOCRIT 39.3 % (37.9-51.0); HEMOGLOBIN 13.3 g/dL (13.5-17.0); LYMPHOCYTES % (AUTO) 26.7 % (13-45); MEAN CORPUSCULAR HEMOGLOBIN 27.6 pg (27.0-33.4); MEAN CORPUSCULAR HGB CONC 33.7 g/dL (32.0-36.0); MEAN CORPUSCULAR VOLUME 82 fl (80-97); MONOCYTES % (AUTO) 11.5 % (3-13); PLATELET COUNT 177 10^3/uL (150-450); RED CELL DISTRIBUTION WIDTH 15.2 % (11.5-14.0); TOTAL CELLS COUNTED % (AUTO) 100 %
[2017-07-22 13:36] LABS: ALANINE AMINOTRANSFERASE 30 U/L (21-72); ALBUMIN 3.4 g/dL (3.5-5.0); ALKALINE PHOSPHATASE 58 U/L (38-126); ANION GAP 12 (5-19); ASPARTATE AMINO TRANSFERASE 26 U/L (17-59); BILIRUBIN,DIRECT 0.5 mg/dL (0.0-0.4); BILIRUBIN,TOTAL 0.6 mg/dL (0.2-1.3); BLOOD UREA NITROGEN 11 mg/dL (7-20); CALCIUM 8.8 mg/dL (8.4-10.2); CARBON DIOXIDE 23 mmol/L (22-30); CHLORIDE 109 mmol/L (98-107); GLUCOSE 111 mg/dL (75-110); POTASSIUM 3.7 mmol/L (3.6-5.0); SODIUM 143.9 mmol/L (137-145); TOTAL PROTEIN 6.2 g/dL (6.3-8.2)
[2017-07-22] MEDS: MIDODRINE HCL 5 MG TABLET PO SCH (14:28)
[2017-07-22] MEDS: LEVOFLOXACIN 750 MG/D5W RTU 750 MG/150 ML RTUPB IV SCH (14:29)
[2017-07-22] MEDS: HALOPERIDOL 5 MG TABLET PO SCH (17:59)
[2017-07-22] MEDS: CLOBETASOL PROPIONATE 0.05% CREAM 15 GM TP SCH (18:08)
[2017-07-22] MEDS: TAMSULOSIN HCL 0.4 MG CAP.SR.24H PO SCH (21:42)
[2017-07-22] MEDS: METOPROLOL SUCCINATE 50 MG TAB.SR.24H PO SCH (21:43)
[2017-07-22] MEDS: ENALAPRIL MALEATE 10 MG TABLET PO SCH (21:43)
[2017-07-22] MEDS: ATORVASTATIN CALCIUM 10 MG TABLET PO SCH (21:44)
[2017-07-23] MEDS: NAFCILLIN SODIUM 1 GM in DEXTROSE 5%-WATER 50 ML IV SCH ×7 (00:01→23:49)
[2017-07-23 04:43] LABS: HEMATOCRIT 37.4 % (37.9-51.0); HEMOGLOBIN 12.6 g/dL (13.5-17.0); MEAN CORPUSCULAR HGB CONC 33.8 g/dL (32.0-36.0); MEAN CORPUSCULAR VOLUME 83 fl (80-97); PLATELET COUNT 181 10^3/uL (150-450); RED BLOOD COUNT 4.52 10^6/uL (4.35-5.55); WHITE BLOOD COUNT 7.4 10^3/uL (4.0-10.5)
[2017-07-23 05:34] LABS: ALANINE AMINOTRANSFERASE 24 U/L (21-72); ALBUMIN 3.4 g/dL (3.5-5.0); ALKALINE PHOSPHATASE 57 U/L (38-126); ANION GAP 14 (5-19); ASPARTATE AMINO TRANSFERASE 21 U/L (17-59); BILIRUBIN,DIRECT 0.5 mg/dL (0.0-0.4); BILIRUBIN,TOTAL 0.5 mg/dL (0.2-1.3); BLOOD UREA NITROGEN 12 mg/dL (7-20); CARBON DIOXIDE 21 mmol/L (22-30); CHLORIDE 111 mmol/L (98-107); GLUCOSE 112 mg/dL (75-110); POTASSIUM 3.8 mmol/L (3.6-5.0); SODIUM 145.5 mmol/L (137-145); TOTAL PROTEIN 6.1 g/dL (6.3-8.2)
[2017-07-23] MEDS: ENOXAPARIN SODIUM INJ 100 MG/1 ML DISP.SYRIN SUBCUT SCH (07:02)
[2017-07-23] MEDS: OXYCODONE HCL SR 40 MG TABLET PO SCH ×3 (07:02→21:58)
[2017-07-23] MEDS: IPRATROPIUM/ALBUTEROL 0.5-2.5 MG/3 ML AMPUL NEB PRN ×2 (07:38→20:17)
[2017-07-23] MEDS: ACETYLCYSTEINE 20% SOLN 800 MG/4 ML VIAL.NEB NEB SCH ×2 (07:38→20:17)
[2017-07-23] MEDS: LANSOPRAZOLE 30 MG TAB.RAP.DR PO SCH (08:23)
[2017-07-23] MEDS: DEXTROSE 5%-WATER 1000 ML 1,000 ML IV PRN ×2 (08:57→22:56)
--- NOTE | 2017-07-23 09:32 | PDOC PROGRESS REPORT ---
Subjective Progress Note for:: 07/23/17 Subjective:: Patient was admitted for the respiratory failure intubations pneumonia currently doing much better Since back to the baseline expressed to go home Still weak but patients do not want to go to the rehab Reason For Visit: AMS,ACUTE RESP FAILURE,POSSIBLE ASPIRATION Physical Exam Vital Signs: Temp Pulse Resp BP Pulse Ox 98.8 F 80 18 106/65 96 07/23/17 07:43 07/23/17 07:43 07/23/17 07:43 07/23/17 07:43 07/23/17 07:43 Intake & Output 07/22/17 07/23/17 07/24/17 06:59 06:59 06:59 Intake Total 3653 3195 Output Total 4125 1925 Balance -472 1270 Weight 100.9 kg 103.5 kg General appearance: PRESENT: no acute distress, well-developed, well-nourished Head exam: PRESENT: atraumatic, normocephalic Eye exam: PRESENT: conjunctiva pink, EOMI, PERRLA. ABSENT: scleral icterus Ear exam: PRESENT: normal external ear exam Mouth exam: PRESENT: moist, tongue midline Neck exam: PRESENT: full ROM. ABSENT: carotid bruit, JVD, lymphadenopathy, thyromegaly Respiratory exam: PRESENT: clear to auscultation wan Cardiovascular exam: PRESENT: RRR. ABSENT: diastolic murmur, rubs, systolic murmur Pulses: PRESENT: normal dorsalis pedis pul, +2 pedal pulses bilateral Vascular exam: PRESENT: normal capillary refill GI/Abdominal exam: PRESENT: normal bowel sounds, soft. ABSENT: distended, guarding, mass, organolmegaly, rebound, tenderness Rectal exam: PRESENT: deferred Neurological exam: PRESENT: alert, awake, oriented to person, oriented to place , oriented to time, oriented to situation, CN II-XII grossly intact. ABSENT: motor sensory deficit Psychiatric exam: PRESENT: appropriate affect, normal mood. ABSENT: homicidal ideation, suicidal ideation Skin exam: PRESENT: dry, intact, warm. ABSENT: cyanosis, rash Additional comments: Primary erythremia is all improving Results Laboratory Results: 07/23/17 04:28 07/23/17 04:28 07/22/17 07/22/17 07/23/17 13:05 13:05 04:28 WBC 7.0 7.4 RBC 4.80 4.52 Hgb 13.3 L 12.6 L Hct 39.3 37.4 L MCV 82 83 MCH 27.6 28.0 MCHC 33.7 33.8 RDW 15.2 H 15.0 H Plt Count 177 181 Seg Neutrophils % 58.0 Lymphocytes % 26.7 Monocytes % 11.5 Eosinophils % 3.0 Basophils % 0.8 Absolute Neutrophils 4.1 Absolute Lymphocytes 1.9 Absolute Monocytes 0.8 Absolute Eosinophils 0.2 Absolute Basophils 0.1 Sodium 143.9 Potassium 3.7 Chloride 109 H Carbon Dioxide 23 Anion Gap 12 BUN 11 Creatinine 0.74 Est GFR ( Amer) > 60 Est GFR (Non-Af Amer) > 60 Glucose 111 H Calcium 8.8 Total Bilirubin 0.6 AST 26 ALT 30 Alkaline Phosphatase 58 Total Protein 6.2 L Albumin 3.4 L 07/23/17 04:28 WBC RBC Hgb Hct MCV MCH MCHC RDW Plt Count Seg Neutrophils % Lymphocytes % Monocytes % Eosinophils % Basophils % Absolute Neutrophils Absolute Lymphocytes Absolute Monocytes Absolute Eosinophils Absolute Basophils Sodium 145.5 H Potassium 3.8 Chloride 111 H Carbon Dioxide 21 L Anion Gap 14 BUN 12 Creatinine 0.73 Est GFR ( Amer) > 60 Est GFR (Non-Af Amer) > 60 Glucose 112 H Calcium 9.0 Total Bilirubin 0.5 AST 21 ALT 24 Alkaline Phosphatase 57 Total Protein 6.1 L Albumin 3.4 L 07/15/17 07/15/17 07/16/17 03:46 03:46 04:23 Creatine Kinase 3071 H 1259 H NT-Pro-B Natriuret Pep 736 H Impressions: Head CT 07/14/17 10:50 IMPRESSION: NORMAL BRAIN CT WITHOUT CONTRAST. EVIDENCE OF ACUTE STROKE: NO. KUB X-Ray 07/17/17 11:52 IMPRESSION: NG tube is identified coiled in the left upper quadrant presumably in the fundus of the stomach. Other findings as noted above Chest X-Ray 07/20/17 06:00 IMPRESSION: WORSENING AIRSPACE DISEASE IN THE LEFT LUNG AND POSSIBLE DEVELOPING AIRSPACE DISEASE IN THE RIGHT LUNG. Assessment & Plan - Diagnosis (1) Deep vein thrombosis of right upper extremity Qualifiers: Affected thrombotic vein of extremity: brachial Chronicity: acute Qualified Code(s): I82.621 - Acute embolism and thrombosis of deep veins of right upper extremity Is this a current diagnosis for this admission?: Yes (2) Palmar erythema Is this a current diagnosis for this admission?: Yes (3) RGACE (acute kidney injury) Is this a current diagnosis for this admission?: Yes (4) Acute hypoxemic respiratory failure Is this a current diagnosis for this admission?: Yes (5) BPH (benign prostatic hypertrophy) Is this a current diagnosis for this admission?: Yes (6) Bipolar disorder Qualifiers: Active/Remission status: remission status unspecified Qualified Code(s): F31.9 - Bipolar disorder, unspecified Is this a current diagnosis for this admission?: Yes (7) COPD (chronic obstructive pulmonary disease) Qualifiers: COPD type: unspecified COPD Qualified Code(s): J44.9 - Chronic obstructive pulmonary disease, unspecified Is this a current diagnosis for this admission?: Yes (8) Hypertension Qualifiers: Hypertension type: essential hypertension Qualified Code(s): I10 - Essential (primary) hypertension Is this a current diagnosis for this admission?: Yes (9) Schizophrenia Qualifiers: Schizophrenia type: unspecified Qualified Code(s): F20.9 - Schizophrenia, unspecified Is this a current diagnosis for this admission?: Yes - Time Time Spent with patient: 15-24 minutes Medications reviewed and adjusted accordingly: Yes Anticipated discharge: Home with Homehealth, Other - Inpatient Certification Medical Necessity: Need Close Monitoring Due to Risk of Patient Decompensation 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 antibiotic Continues to physical therapy
[2017-07-23] MEDS: FAMOTIDINE INJ/PF 20 MG/2 ML SDV IV SCH ×2 (11:07→21:58)
[2017-07-23] MEDS: FENOFIBRATE NANOCRYSTALLIZED 145 MG TABLET PO SCH (11:07)
[2017-07-23] MEDS: BENZTROPINE MESYLATE 1 MG TABLET PO SCH ×2 (11:08→21:57)
[2017-07-23] MEDS: BACLOFEN 10 MG TABLET PO SCH ×4 (11:08→21:57)
[2017-07-23] MEDS: FLUOXETINE HCL 20 MG CAPSULE PO SCH (11:09)
[2017-07-23] MEDS: GABAPENTIN 300 MG CAPSULE PO SCH ×2 (11:09→21:58)
[2017-07-23] MEDS: NICOTINE 14 MG/24 HR PATCH.TD24 TD SCH (11:18)
[2017-07-23] MEDS: BUSPIRONE HCL 10 MG TABLET PO SCH ×3 (11:18→17:21)
[2017-07-23] MEDS: LEVOFLOXACIN 500 MG TABLET PO SCH (11:19)
[2017-07-23] MEDS: MIDODRINE HCL 5 MG TABLET PO SCH (11:19)
--- NOTE | 2017-07-23 11:38 | PDOC PROGRESS REPORT ---
Subjective Progress Note for:: 07/23/17 Subjective:: Remains confused Reason For Visit: AMS,ACUTE RESP FAILURE,POSSIBLE ASPIRATION Physical Exam Vital Signs: Temp Pulse Resp BP Pulse Ox 98.8 F 80 18 106/65 96 07/23/17 07:43 07/23/17 07:43 07/23/17 07:43 07/23/17 07:43 07/23/17 07:43 Intake & Output 07/22/17 07/23/17 07/24/17 06:59 06:59 06:59 Intake Total 3653 3195 Output Total 4125 1925 Balance -472 1270 Weight 100.9 kg 103.5 kg General appearance: PRESENT: no acute distress, cooperative, disheveled, obese Head exam: PRESENT: atraumatic, normocephalic Eye exam: PRESENT: conjunctiva pale, EOMI. ABSENT: nystagmus, periorbital swelling, scleral icterus Mouth exam: PRESENT: moist, neck supple, tongue midline Neck exam: ABSENT: carotid bruit, JVD, lymphadenopathy, thyromegaly, tracheal deviation Respiratory exam: PRESENT: decreased breath sounds, prolonged expiratory phas, rhonchi, unlabored. ABSENT: retraction, stridor Cardiovascular exam: PRESENT: RRR, +S1, +S2. ABSENT: tachycardia Pulses: PRESENT: normal radial pulses GI/Abdominal exam: PRESENT: normal bowel sounds, soft Extremities exam: ABSENT: calf tenderness, clubbing, joint swelling Musculoskeletal exam: ABSENT: deformity, dislocation Neurological exam: PRESENT: awake, oriented to person, oriented to place. ABSENT: oriented to time, oriented to situation Psychiatric exam: PRESENT: flat affect Skin exam: PRESENT: dry, warm Results Laboratory Results: 07/23/17 04:28 07/23/17 04:28 07/22/17 07/22/17 07/23/17 13:05 13:05 04:28 WBC 7.0 7.4 RBC 4.80 4.52 Hgb 13.3 L 12.6 L Hct 39.3 37.4 L MCV 82 83 MCH 27.6 28.0 MCHC 33.7 33.8 RDW 15.2 H 15.0 H Plt Count 177 181 Seg Neutrophils % 58.0 Lymphocytes % 26.7 Monocytes % 11.5 Eosinophils % 3.0 Basophils % 0.8 Absolute Neutrophils 4.1 Absolute Lymphocytes 1.9 Absolute Monocytes 0.8 Absolute Eosinophils 0.2 Absolute Basophils 0.1 Sodium 143.9 Potassium 3.7 Chloride 109 H Carbon Dioxide 23 Anion Gap 12 BUN 11 Creatinine 0.74 Est GFR ( Amer) > 60 Est GFR (Non-Af Amer) > 60 Glucose 111 H Calcium 8.8 Total Bilirubin 0.6 AST 26 ALT 30 Alkaline Phosphatase 58 Total Protein 6.2 L Albumin 3.4 L 07/23/17 04:28 WBC RBC Hgb Hct MCV MCH MCHC RDW Plt Count Seg Neutrophils % Lymphocytes % Monocytes % Eosinophils % Basophils % Absolute Neutrophils Absolute Lymphocytes Absolute Monocytes Absolute Eosinophils Absolute Basophils Sodium 145.5 H Potassium 3.8 Chloride 111 H Carbon Dioxide 21 L Anion Gap 14 BUN 12 Creatinine 0.73 Est GFR ( Amer) > 60 Est GFR (Non-Af Amer) > 60 Glucose 112 H Calcium 9.0 Total Bilirubin 0.5 AST 21 ALT 24 Alkaline Phosphatase 57 Total Protein 6.1 L Albumin 3.4 L 07/15/17 07/15/17 07/16/17 03:46 03:46 04:23 Creatine Kinase 3071 H 1259 H NT-Pro-B Natriuret Pep 736 H Impressions: Head CT 07/14/17 10:50 IMPRESSION: NORMAL BRAIN CT WITHOUT CONTRAST. EVIDENCE OF ACUTE STROKE: NO. KUB X-Ray 07/17/17 11:52 IMPRESSION: NG tube is identified coiled in the left upper quadrant presumably in the fundus of the stomach. Other findings as noted above Assessment & Plan - Diagnosis (1) Acute respiratory failure Is this a current diagnosis for this admission?: Yes Plan: stable at this time (2) Altered mental status Qualifiers: Altered mental status type: coma Coma depth: [place] coma 3-8 Coma timing : unspecified coma timing Qualified Code(s): R40.2430 - [place] coma scale score 3-8, unspecified time Is this a current diagnosis for this admission?: Yes Plan: Unchanged (3) Aspiration into airway Qualifiers: Encounter type: initial encounter Qualified Code(s): T17.908A - Unspecified foreign body in respiratory tract, part unspecified causing other injury, initial encounter Is this a current diagnosis for this admission?: Yes Plan: R lower lobe per CXR (4) Anxiety and depression Is this a current diagnosis for this admission?: Yes Plan: Resume home meds this time (5) Bipolar disorder Qualifiers: Active/Remission status: remission status unspecified Qualified Code(s): F31.9 - Bipolar disorder, unspecified Is this a current diagnosis for this admission?: Yes (6) GERD (gastroesophageal reflux disease) Qualifiers: Esophagitis presence: without esophagitis Qualified Code(s): K21.9 - Gastro -esophageal reflux disease without esophagitis Is this a current diagnosis for this admission?: Yes
--- NOTE | 2017-07-23 11:57 | RADIOLOGY REPORT (SQ) ---
EXAM DESCRIPTION: CHEST 2 VIEWS COMPLETED DATE/TIME: 07/23/2017 10:29 am REASON FOR STUDY: pnemonia COMPARISON: 07/14/2017 EXAM PARAMETERS: NUMBER OF VIEWS: two views TECHNIQUE: Digital Frontal and Lateral radiographic views of the chest acquired. RADIATION DOSE: NA LIMITATIONS: none FINDINGS: LUNGS AND PLEURA: No opacities, masses or pneumothorax. No pleural effusion. MEDIASTINUM AND HILAR STRUCTURES: No masses or contour abnormalities. HEART AND VASCULAR STRUCTURES: Stable heart size. No evidence for failure. BONES: No acute findings. HARDWARE: None in the chest. OTHER: No other significant finding. IMPRESSION: NO ACUTE RADIOGRAPHIC FINDING IN THE CHEST. TECHNICAL DOCUMENTATION: JOB ID: [id number] [employer]- All Rights Reserved Reading location - IP/workstation name: [email or web address]
[2017-07-23] MEDS: HALOPERIDOL 5 MG TABLET PO SCH (17:20)
[2017-07-23] MEDS: CLOBETASOL PROPIONATE 0.05% CREAM 15 GM TP SCH (17:20)
[2017-07-23] MEDS: RIVAROXABAN 15 MG TABLET PO SCH (17:21)
[2017-07-23] MEDS: METOPROLOL SUCCINATE 50 MG TAB.SR.24H PO SCH (21:57)
[2017-07-23] MEDS: ENALAPRIL MALEATE 10 MG TABLET PO SCH (21:57)
[2017-07-23] MEDS: ATORVASTATIN CALCIUM 10 MG TABLET PO SCH (21:58)
[2017-07-23] MEDS: TAMSULOSIN HCL 0.4 MG CAP.SR.24H PO SCH (22:03)
[2017-07-23 22:20] LABS: APPEARANCE,URINE CLEAR; BILIRUBIN,URINE NEGATIVE (NEGATIVE); COLOR,URINE YELLOW; GLUCOSE, URINE NEGATIVE (NEGATIVE); KETONES,URINE NEGATIVE (NEGATIVE); LEUKOCYTE ESTERASE,URINE NEGATIVE (NEGATIVE); NITRITE,URINE NEGATIVE (NEGATIVE); PROTEIN,URINE NEGATIVE (NEGATIVE)
[2017-07-24] MEDS: NAFCILLIN SODIUM 1 GM in DEXTROSE 5%-WATER 50 ML IV SCH ×2 (04:03→08:23)
[2017-07-24 05:00] LABS: ABSOLUTE BASOPHILS # (AUTO) 0.1 10^3/uL (0.0-0.2); ABSOLUTE EOSINOPHILS # (AUTO) 0.3 10^3/uL (0.0-0.6); ABSOLUTE LYMPHOCYTES (AUTO) 1.8 10^3/uL (0.5-4.7); ABSOLUTE MONOCYTES (AUTO) 0.8 10^3/uL (0.1-1.4); BASOPHILS % (AUTO) 0.9 % (0-2); EOSINOPHILS % (AUTO) 5.4 % (0-6); HEMATOCRIT 38.7 % (37.9-51.0); LYMPHOCYTES % (AUTO) 30.3 % (13-45); MEAN CORPUSCULAR HEMOGLOBIN 27.5 pg (27.0-33.4); MEAN CORPUSCULAR HGB CONC 33.4 g/dL (32.0-36.0); MEAN CORPUSCULAR VOLUME 82 fl (80-97); PLATELET COUNT 183 10^3/uL (150-450); RED BLOOD COUNT 4.71 10^6/uL (4.35-5.55); RED CELL DISTRIBUTION WIDTH 15.5 % (11.5-14.0); SEGMENTED NEUTROPHILS % (AUTO) 50.4 % (42-78); TOTAL CELLS COUNTED % (AUTO) 100 %; WHITE BLOOD COUNT 6.1 10^3/uL (4.0-10.5)
[2017-07-24] MEDS: OXYCODONE HCL SR 40 MG TABLET PO SCH ×2 (05:26→14:37)
[2017-07-24 05:43] LABS: ANION GAP 13 (5-19); BLOOD UREA NITROGEN 11 mg/dL (7-20); CALCIUM 9.4 mg/dL (8.4-10.2); CARBON DIOXIDE 22 mmol/L (22-30); CHLORIDE 113 mmol/L (98-107); GLUCOSE 117 mg/dL (75-110); POTASSIUM 4.1 mmol/L (3.6-5.0); SODIUM 148.3 mmol/L (137-145)
[2017-07-24 07:20] LABS: ARTERIAL BLOOD BASE EXCESS -2.2 mmol/L; ARTERIAL BLOOD H2CO3 0.98 mmol/L (1.05-1.35); ARTERIAL BLOOD HCO3 21.3 mmol/L (20-26); ARTERIAL BLOOD O2 SATURATION 93.9 % (94-98); ARTERIAL BLOOD PCO2 32.7 mmHg (35-45); ARTERIAL BLOOD PH 7.43 (7.35-7.45); ARTERIAL BLOOD PO2 66.4 mmHg (80-100); ARTERIAL BLOOD TOTAL CO2 22.3 mmol/L (23-27)
[2017-07-24 07:21] LABS: ARTERIAL BLOOD FIO2 ROOM AIR
[2017-07-24] MEDS: RIVAROXABAN 15 MG TABLET PO SCH (08:23)
[2017-07-24] MEDS: LANSOPRAZOLE 30 MG TAB.RAP.DR PO SCH (08:23)
[2017-07-24] MEDS: ACETYLCYSTEINE 20% SOLN 800 MG/4 ML VIAL.NEB NEB SCH (08:25)
[2017-07-24] MEDS: IPRATROPIUM/ALBUTEROL 0.5-2.5 MG/3 ML AMPUL NEB PRN (08:27)
--- NOTE | 2017-07-24 08:40 | RADIOLOGY REPORT (SQ) ---
EXAM DESCRIPTION: CHEST 2 VIEWS COMPLETED DATE/TIME: 07/24/2017 8:18 am REASON FOR STUDY: RLL pna COMPARISON: Two-view chest 07/23/2017, 07/20/2017, 07/19/2017 EXAM PARAMETERS: NUMBER OF VIEWS: two views TECHNIQUE: Digital Frontal and Lateral radiographic views of the chest acquired. RADIATION DOSE: NA LIMITATIONS: none FINDINGS: LUNGS AND PLEURA: No opacities, masses or pneumothorax. No pleural effusion. MEDIASTINUM AND HILAR STRUCTURES: No masses or contour abnormalities. HEART AND VASCULAR STRUCTURES: Heart normal size. No evidence for failure. BONES: No acute findings. HARDWARE: Clips right upper quadrant post cholecystectomy OTHER: No other significant finding. IMPRESSION: NO ACUTE RADIOGRAPHIC FINDING IN THE CHEST. TECHNICAL DOCUMENTATION: JOB ID: [id number] [employer]- All Rights Reserved Reading location - IP/workstation name: [email or web address]
[2017-07-24] MEDS ORDERED: CLOBETASOL PROPIONATE 0.05% CREAM 15 GM TP SCH (10:00)
--- NOTE | 2017-07-24 10:21 | PDOC PROGRESS REPORT ---
Subjective Progress Note for:: 07/24/17 Subjective:: Patient is currently doing well Patient's denied any chest pain denied any shortness of the breath Patient's white count is all normal Patient still have a indwelling catheter Patient's otherwise discussed with the Dr. Lebron stable to discharge home from the respiratory standpoint As per discussed with the patient and the patient's caregiver today while the patient is currently taking the Xarelto and patients needs to be a fall precautions Patients refused to go to the penitentiary facility Patient's also has several psych medication and the pain medications which currently see the psychiatrist and the pain management and discussed with the patient and the caregiver to follow up in the readjust the medication and try to avoid too much medications to help to reduce the side effct in the fall precautions Reason For Visit: AMS,ACUTE RESP FAILURE,POSSIBLE ASPIRATION Physical Exam Vital Signs: Temp Pulse Resp BP Pulse Ox 98.7 F 71 16 104/65 94 07/24/17 07:36 07/24/17 08:20 07/24/17 08:20 07/24/17 07:36 07/24/17 08:20 Intake & Output 07/23/17 07/24/17 07/25/17 06:59 06:59 06:59 Intake Total 3195 4555 Output Total 1925 4375 Balance 1270 180 Weight 103.5 kg 103.1 kg General appearance: PRESENT: no acute distress, well-developed, well-nourished Head exam: PRESENT: atraumatic, normocephalic Eye exam: PRESENT: conjunctiva pink, EOMI, PERRLA. ABSENT: scleral icterus Ear exam: PRESENT: normal external ear exam Mouth exam: PRESENT: moist, tongue midline Neck exam: PRESENT: full ROM. ABSENT: carotid bruit, JVD, lymphadenopathy, thyromegaly Respiratory exam: PRESENT: clear to auscultation wan Cardiovascular exam: PRESENT: RRR. ABSENT: diastolic murmur, rubs, systolic murmur Pulses: PRESENT: normal dorsalis pedis pul, +2 pedal pulses bilateral Vascular exam: PRESENT: normal capillary refill GI/Abdominal exam: PRESENT: normal bowel sounds, soft. ABSENT: distended, guarding, mass, organolmegaly, rebound, tenderness Rectal exam: PRESENT: deferred Extremities exam: ABSENT: pedal edema Musculoskeletal exam: PRESENT: ambulatory Neurological exam: PRESENT: alert, awake, oriented to person, oriented to place , oriented to time, oriented to situation, CN II-XII grossly intact. ABSENT: motor sensory deficit Psychiatric exam: PRESENT: appropriate affect, normal mood. ABSENT: homicidal ideation, suicidal ideation Skin exam: PRESENT: dry, intact, warm. ABSENT: cyanosis, rash Results Laboratory Results: 07/24/17 04:17 07/24/17 04:17 07/23/17 07/24/17 07/24/17 21:46 04:17 04:17 WBC 6.1 RBC 4.71 Hgb 13.0 L Hct 38.7 MCV 82 MCH 27.5 MCHC 33.4 RDW 15.5 H Plt Count 183 Seg Neutrophils % 50.4 Lymphocytes % 30.3 Monocytes % 13.0 Eosinophils % 5.4 Basophils % 0.9 Absolute Neutrophils 3.0 Absolute Lymphocytes 1.8 Absolute Monocytes 0.8 Absolute Eosinophils 0.3 Absolute Basophils 0.1 Carbonic Acid HCO3/H2CO3 Ratio ABG pH ABG pCO2 ABG pO2 ABG HCO3 ABG O2 Saturation ABG Base Excess FiO2 Sodium 148.3 H Potassium 4.1 Chloride 113 H Carbon Dioxide 22 Anion Gap 13 BUN 11 Creatinine 0.68 Est GFR ( Amer) > 60 Est GFR (Non-Af Amer) > 60 Glucose 117 H Calcium 9.4 Magnesium 2.1 Urine Color YELLOW Urine Appearance CLEAR Urine pH 6.0 Ur Specific [place] 1.010 Urine Protein NEGATIVE Urine Glucose (UA) NEGATIVE Urine Ketones NEGATIVE Urine Blood NEGATIVE Urine Nitrite NEGATIVE Ur Leukocyte Esterase NEGATIVE Urine WBC (Auto) 0 Urine RBC (Auto) 2 07/24/17 07:01 WBC RBC Hgb Hct MCV MCH MCHC RDW Plt Count Seg Neutrophils % Lymphocytes % Monocytes % Eosinophils % Basophils % Absolute Neutrophils Absolute Lymphocytes Absolute Monocytes Absolute Eosinophils Absolute Basophils Carbonic Acid 0.98 L HCO3/H2CO3 Ratio 21:1 ABG pH 7.43 ABG pCO2 32.7 L ABG pO2 66.4 L ABG HCO3 21.3 ABG O2 Saturation 93.9 L ABG Base Excess -2.2 FiO2 ROOM AIR Sodium Potassium Chloride Carbon Dioxide Anion Gap BUN Creatinine Est GFR ( Amer) Est GFR (Non-Af Amer) Glucose Calcium Magnesium Urine Color Urine Appearance Urine pH Ur Specific [place] Urine Protein Urine Glucose (UA) Urine Ketones Urine Blood Urine Nitrite Ur Leukocyte Esterase Urine WBC (Auto) Urine RBC (Auto) 07/15/17 07/15/17 07/16/17 03:46 03:46 04:23 Creatine Kinase 3071 H 1259 H NT-Pro-B Natriuret Pep 736 H Impressions: Head CT 07/14/17 10:50 IMPRESSION: NORMAL BRAIN CT WITHOUT CONTRAST. EVIDENCE OF ACUTE STROKE: NO. KUB X-Ray 07/17/17 11:52 IMPRESSION: NG tube is identified coiled in the left upper quadrant presumably in the fundus of the stomach. Other findings as noted above Chest X-Ray 07/24/17 06:00 IMPRESSION: NO ACUTE RADIOGRAPHIC FINDING IN THE CHEST. Assessment & Plan - Diagnosis (1) Deep vein thrombosis of right upper extremity Qualifiers: Affected thrombotic vein of extremity: brachial Chronicity: acute Qualified Code(s): I82.621 - Acute embolism and thrombosis of deep veins of right upper extremity Is this a current diagnosis for this admission?: Yes Plan: Currently taking the Xarelto (2) Palmar erythema Is this a current diagnosis for this admission?: Yes Plan: Continues to clobetasol (3) GRACE (acute kidney injury) Is this a current diagnosis for this admission?: Yes Plan: Currently all resolved (4) Acute hypoxemic respiratory failure Is this a current diagnosis for this admission?: Yes Plan: Currently all resolved (5) BPH (benign prostatic hypertrophy) Is this a current diagnosis for this admission?: Yes Plan: Continues to Flomax (6) Bipolar disorder Qualifiers: Active/Remission status: remission status unspecified Qualified Code(s): F31.9 - Bipolar disorder, unspecified Is this a current diagnosis for this admission?: Yes Plan: Patient is to follow with the outpatient psych to readjust the medications (7) COPD (chronic obstructive pulmonary disease) Qualifiers: COPD type: unspecified COPD Qualified Code(s): J44.9 - Chronic obstructive pulmonary disease, unspecified Is this a current diagnosis for this admission?: Yes Plan: Continues to nebulizer treatments and will start the patient on inhaler discharge (8) Hypertension Qualifiers: Hypertension type: essential hypertension Qualified Code(s): I10 - Essential (primary) hypertension Is this a current diagnosis for this admission?: Yes Plan: Currently all stable (9) Schizophrenia Qualifiers: Schizophrenia type: unspecified Qualified Code(s): F20.9 - Schizophrenia, unspecified Is this a current diagnosis for this admission?: Yes Plan: Follow with the psych (10) Chronic pain syndrome Is this a current diagnosis for this admission?: Yes Plan: Discussed with the patient's to try to cut down the all the pain medications and patient have already appointment to see this pain management and currently follow with the pain clinic for the medications - Time Time Spent with patient: 25-34 minutes Medications reviewed and adjusted accordingly: Yes Anticipated discharge: Home, Home with Homehealth Within: within 24 hours - Inpatient Certification Medical Necessity: Need Close Monitoring Due to Risk of Patient Decompensation Post Hospital Care: D/C Line Mechanic Documentation - Plan Summary Plan Summary: Continues to p.o. antibiotic as per discussed with the Dr. Lebron stable enough to discharge home discussed with the caregiver about the patient's conditions discuss about the Xarelto and a fall precautions
[2017-07-24] MEDS: LEVOFLOXACIN 500 MG TABLET PO SCH (11:22)
[2017-07-24] MEDS: BACLOFEN 10 MG TABLET PO SCH ×2 (11:22→14:38)
[2017-07-24] MEDS: FENOFIBRATE NANOCRYSTALLIZED 145 MG TABLET PO SCH (11:22)
[2017-07-24] MEDS: MIDODRINE HCL 5 MG TABLET PO SCH (11:23)
[2017-07-24] MEDS: FLUOXETINE HCL 20 MG CAPSULE PO SCH (11:23)
[2017-07-24] MEDS: GABAPENTIN 300 MG CAPSULE PO SCH (11:24)
[2017-07-24] MEDS: BENZTROPINE MESYLATE 1 MG TABLET PO SCH (11:25)
[2017-07-24] MEDS: FAMOTIDINE INJ/PF 20 MG/2 ML SDV IV SCH (11:25)
[2017-07-24] MEDS: BUSPIRONE HCL 10 MG TABLET PO SCH ×2 (11:25→14:38)
[2017-07-24] MEDS: NICOTINE 14 MG/24 HR PATCH.TD24 TD SCH (11:26)
[2017-07-24 15:31] VITALS: BP 116/71
--- NOTE | 2017-07-24 17:29 | PDOC DISCHARGE SUMMARY ---
General - Admit/Disc Date/PCP Admission Date/Primary Care Provider: 07/14/17 13:26 KAY BRUSH MD Discharge Date: 07/24/17 - Discharge Diagnosis (1) Deep vein thrombosis of right upper extremity Is this a current diagnosis for this admission?: Yes Summary: Continues the patient on the Xarelto 15 mg p.o. twice a day for 21 days and was switched to 20 mg p.o. daily Discussed with the patient and the caregiver about the precaution about the Xarelto in the fall precautions also discussed about the side effect of the Xarelto and patient understand verbally (2) Palmar erythema Is this a current diagnosis for this admission?: Yes Summary: on. clobetasol (3) GRACE (acute kidney injury) Is this a current diagnosis for this admission?: Yes Summary: all resolved (4) Acute hypoxemic respiratory failure Is this a current diagnosis for this admission?: Yes Summary: Most likely due to the aspiration pneumonia currently all resolved (5) BPH (benign prostatic hypertrophy) Is this a current diagnosis for this admission?: Yes Summary: Currently on a Flomax (6) Bipolar disorder Is this a current diagnosis for this admission?: Yes Summary: pt need follow with the psych (7) COPD (chronic obstructive pulmonary disease) Is this a current diagnosis for this admission?: Yes Summary: Currently all stable we will get the pulmonary function tests as an outpatient (8) Hypertension Is this a current diagnosis for this admission?: Yes Summary: All stable (9) Schizophrenia Is this a current diagnosis for this admission?: Yes Summary: With the psych (10) Chronic pain syndrome Is this a current diagnosis for this admission?: Yes Summary: Is currently see a pain management (11) Aspiration into airway Is this a current diagnosis for this admission?: Yes Summary: Currently all resolved - Additional Information Resuscitation Status: Full Code Discharge Diet: Regular Discharge Activity: Activity As Tolerated Prescriptions: Clobetasol Propionate [Temovate 0.05% Cream 15 gm] 1 applic TP QPM #30 tube Nicotine [Nicoderm 14 mg/24 Hr Transdermal Patch] 1 each TD DAILY #14 patch.td24 Rivaroxaban [Xarelto 15 mg Tablet] 15 mg PO BIDBS #42 tablet Sulfamethoxazole/Trimethoprim [Bactrim Ds Tablet] 1 each PO BID #14 tablet Home Medications: Baclofen [Baclofen 10 mg Tablet] 10 mg PO QID 05/24/16 Benztropine Mesylate [Benztropine Mesylate 2 mg Tablet] 2 mg PO BID 05/24/16 Enalapril Maleate [Vasotec 10 mg Tablet] 10 mg PO DAILY 05/24/16 Esomeprazole Magnesium [Nexium] 40 mg PO DAILY 05/24/16 Fenofibrate Nanocrystallized [Fenofibrate] 145 mg PO DAILY 05/24/16 Fluoxetine HCl [Prozac] 80 mg PO DAILY 05/24/16 Haloperidol 10 mg PO QPM 05/24/16 Oxycodone HCl 15 mg PO Q6HP PRN 05/24/16 Oxycodone HCl [Oxycontin] 60 mg PO Q8 05/24/16 Tamsulosin HCl [Flomax 0.4 mg Cap.sr] 0.4 mg PO DAILY 05/24/16 Atorvastatin Calcium [Lipitor 10 mg Tablet] 10 mg PO QHS 07/14/17 Buspirone HCl [Buspar 10 mg Tablet] 10 mg PO TID 07/14/17 Gabapentin [Neurontin 300 mg Capsule] 300 mg PO Q12 07/14/17 Metoprolol Succinate [Toprol Xl] 50 mg PO DAILY 07/14/17 Midodrine HCl 10 mg PO DAILY 07/14/17 Umeclidinium Brm/Vilanterol Tr [Anoro Ellipta 62.5-25 Mcg INH] 1 puff IH DAILY 07/14/17 Clobetasol Propionate [Temovate 0.05% Cream 15 gm] 1 applic TP QPM #30 tube Nicotine [Nicoderm 14 mg/24 Hr Transdermal Patch] 1 each TD DAILY #14 patch.td24 07/24/17 Rivaroxaban [Xarelto 15 mg Tablet] 15 mg PO BIDBS #42 tablet 07/24/17 Sulfamethoxazole/Trimethoprim [Bactrim Ds Tablet] 1 each PO BID #14 tablet 07/24 History of Present Illness History of Present Illness: DONALD GARRIDO is a 42 year old male This is a 42-year-old male with a significant history of the bipolar disorder and a chronic pain syndromes and the multiple medications sticking through the pain management and a psych came to the department because of the altered mental status and the patient initial CT of the head was negative and patient's vital going for CT patient started vomiting and patient's aspirated and respiratory distress and intubated and put in the ICU and Dr. Lebron was consulted Hospital Course Hospital Course: This is a 42-year-old male as medical problem about came to the emergency departments and underwent for the aspirations to the airways and intubated and put in the ICU and was started on IV antibiotic and that Dr. Lebron was consulted Patient's was successfully extubated and put in the floor bed patient is persistently doing well His chest x-ray is all clear Back to the baseline Still require home health and physical therapy pt refused to go to the rehab Also developed a DVT and started on the Lovenox therapy and switched to the Xarelto discharge The patient and the caregiver who claimed the patient about the patient' s current conditions discussed about the Xarelto and possible side effect and fall precautions Continues to follow with the psych and pain management for further evaluation of the medications and try to reduce the medication and the dose Discussed with Dr. Lebron and suggest the patient's can be discharged His Grant catheter was removed and patient urinated without any problems Physical Exam Vital Signs: Temp Pulse Resp BP Pulse Ox 98.4 F 79 18 116/71 97 07/24/17 15:22 07/24/17 15:22 07/24/17 15:22 07/24/17 15:22 07/24/17 15:22 Intake & Output 07/23/17 07/24/17 07/25/17 06:59 06:59 06:59 Intake Total 3195 4555 Output Total 1925 4375 Balance 1270 180 Weight 103.5 kg 103.1 kg General appearance: PRESENT: no acute distress, well-developed, well-nourished Head exam: PRESENT: atraumatic, normocephalic Eye exam: PRESENT: conjunctiva pink, EOMI, PERRLA. ABSENT: scleral icterus Ear exam: PRESENT: normal external ear exam Mouth exam: PRESENT: moist, tongue midline Neck exam: PRESENT: full ROM. ABSENT: carotid bruit, JVD, lymphadenopathy, thyromegaly Respiratory exam: PRESENT: clear to auscultation wan Cardiovascular exam: PRESENT: RRR. ABSENT: diastolic murmur, rubs, systolic murmur Pulses: PRESENT: normal dorsalis pedis pul, +2 pedal pulses bilateral Vascular exam: PRESENT: normal capillary refill GI/Abdominal exam: PRESENT: normal bowel sounds, soft. ABSENT: distended, guarding, mass, organolmegaly, rebound, tenderness Rectal exam: PRESENT: deferred Extremities exam: ABSENT: pedal edema Musculoskeletal exam: PRESENT: ambulatory Neurological exam: PRESENT: alert, awake, oriented to person, oriented to place , oriented to time, oriented to situation, CN II-XII grossly intact. ABSENT: motor sensory deficit Psychiatric exam: PRESENT: appropriate affect, normal mood. ABSENT: homicidal ideation, suicidal ideation Skin exam: PRESENT: dry, intact, warm. ABSENT: cyanosis, rash Results Laboratory Results: 07/24/17 04:17 07/24/17 04:17 07/23/17 07/24/17 07/24/17 21:46 04:17 04:17 WBC 6.1 RBC 4.71 Hgb 13.0 L Hct 38.7 MCV 82 MCH 27.5 MCHC 33.4 RDW 15.5 H Plt Count 183 Seg Neutrophils % 50.4 Lymphocytes % 30.3 Monocytes % 13.0 Eosinophils % 5.4 Basophils % 0.9 Absolute Neutrophils 3.0 Absolute Lymphocytes 1.8 Absolute Monocytes 0.8 Absolute Eosinophils 0.3 Absolute Basophils 0.1 Carbonic Acid HCO3/H2CO3 Ratio ABG pH ABG pCO2 ABG pO2 ABG HCO3 ABG O2 Saturation ABG Base Excess FiO2 Sodium 148.3 H Potassium 4.1 Chloride 113 H Carbon Dioxide 22 Anion Gap 13 BUN 11 Creatinine 0.68 Est GFR ( Amer) > 60 Est GFR (Non-Af Amer) > 60 Glucose 117 H Calcium 9.4 Magnesium 2.1 Urine Color YELLOW Urine Appearance CLEAR Urine pH 6.0 Ur Specific [place] 1.010 Urine Protein NEGATIVE Urine Glucose (UA) NEGATIVE Urine Ketones NEGATIVE Urine Blood NEGATIVE Urine Nitrite NEGATIVE Ur Leukocyte Esterase NEGATIVE Urine WBC (Auto) 0 Urine RBC (Auto) 2 07/24/17 07:01 WBC RBC Hgb Hct MCV MCH MCHC RDW Plt Count Seg Neutrophils % Lymphocytes % Monocytes % Eosinophils % Basophils % Absolute Neutrophils Absolute Lymphocytes Absolute Monocytes Absolute Eosinophils Absolute Basophils Carbonic Acid 0.98 L HCO3/H2CO3 Ratio 21:1 ABG pH 7.43 ABG pCO2 32.7 L ABG pO2 66.4 L ABG HCO3 21.3 ABG O2 Saturation 93.9 L ABG Base Excess -2.2 FiO2 ROOM AIR Sodium Potassium Chloride Carbon Dioxide Anion Gap BUN Creatinine Est GFR ( Amer) Est GFR (Non-Af Amer) Glucose Calcium Magnesium Urine Color Urine Appearance Urine pH Ur Specific [place] Urine Protein Urine Glucose (UA) Urine Ketones Urine Blood Urine Nitrite Ur Leukocyte Esterase Urine WBC (Auto) Urine RBC (Auto) 07/15/17 07/15/17 07/16/17 03:46 03:46 04:23 Creatine Kinase 3071 H 1259 H NT-Pro-B Natriuret Pep 736 H Impressions: Head CT 07/14/17 10:50 IMPRESSION: NORMAL BRAIN CT WITHOUT CONTRAST. EVIDENCE OF ACUTE STROKE: NO. KUB X-Ray 07/17/17 11:52 IMPRESSION: NG tube is identified coiled in the left upper quadrant presumably in the fundus of the stomach. Other findings as noted above Chest X-Ray 07/24/17 06:00 IMPRESSION: NO ACUTE RADIOGRAPHIC FINDING IN THE CHEST. Qualifiers - * PATIENT BEING DISCHARGED WITH ANY OF THE FOLLOWING DIAGNOSIS: No VTE patient discharged on overlapping Therapy?: Yes Plan Time Spent: Greater than 30 Minutes - Patient's discharge home with the stable condition with a home health and physical therapy Follow with the psych and the pain management Following office in 1 week will get the pulmonary function test and also check a CBC and Chem-7
[2017-07-24] MEDS ORDERED: SULFAMETHOXAZOLE/TRIMETHOPRIM 800-160 MG TABLET PO SCH (18:00)
--- NOTE | 2017-08-05 19:16 | PDOC PROGRESS REPORT ---
Subjective Progress Note for:: 07/24/17 Subjective:: Remains confused Reason For Visit: AMS,ACUTE RESP FAILURE,POSSIBLE ASPIRATION Physical Exam Vital Signs: Temp Pulse Resp BP Pulse Ox 98.4 F 79 18 116/71 97 07/24/17 15:22 07/24/17 15:22 07/24/17 15:22 07/24/17 15:22 07/24/17 15:22 General appearance: PRESENT: no acute distress, disheveled, obese Head exam: PRESENT: atraumatic, normocephalic Eye exam: PRESENT: conjunctiva pale, EOMI. ABSENT: nystagmus Mouth exam: PRESENT: moist, neck supple, tongue midline Neck exam: ABSENT: carotid bruit, JVD, lymphadenopathy, thyromegaly, tracheal deviation, tracheostomy Respiratory exam: PRESENT: decreased breath sounds, prolonged expiratory phas, rhonchi, unlabored. ABSENT: rales, retraction, stridor Cardiovascular exam: PRESENT: RRR, +S1, +S2 Pulses: PRESENT: normal radial pulses GI/Abdominal exam: PRESENT: normal bowel sounds, soft Extremities exam: ABSENT: calf tenderness, clubbing, joint swelling Musculoskeletal exam: ABSENT: deformity, dislocation Neurological exam: PRESENT: awake Skin exam: PRESENT: dry, warm Results Laboratory Results: 07/24/17 04:17 07/24/17 04:17 07/15/17 07/15/17 07/16/17 03:46 03:46 04:23 Creatine Kinase 3071 H 1259 H NT-Pro-B Natriuret Pep 736 H Impressions: Head CT 07/14/17 10:50 IMPRESSION: NORMAL BRAIN CT WITHOUT CONTRAST. EVIDENCE OF ACUTE STROKE: NO. KUB X-Ray 07/17/17 11:52 IMPRESSION: NG tube is identified coiled in the left upper quadrant presumably in the fundus of the stomach. Other findings as noted above Chest X-Ray 07/24/17 06:00 IMPRESSION: NO ACUTE RADIOGRAPHIC FINDING IN THE CHEST. Assessment & Plan - Diagnosis (1) Acute respiratory failure Is this a current diagnosis for this admission?: Yes Plan: stable at this time (2) Altered mental status Qualifiers: Altered mental status type: coma Coma depth: Aristes coma 3-8 Coma timing : unspecified coma timing Qualified Code(s): R40.2430 - Mitchell coma scale score 3-8, unspecified time Is this a current diagnosis for this admission?: Yes Plan: Unchanged (3) Aspiration into airway Qualifiers: Encounter type: initial encounter Qualified Code(s): T17.908A - Unspecified foreign body in respiratory tract, part unspecified causing other injury, initial encounter Is this a current diagnosis for this admission?: Yes Plan: R lower lobe per CXR (4) Anxiety and depression Is this a current diagnosis for this admission?: Yes Plan: Resume home meds this time (5) Bipolar disorder Qualifiers: Active/Remission status: remission status unspecified Qualified Code(s): F31.9 - Bipolar disorder, unspecified Is this a current diagnosis for this admission?: Yes (6) GERD (gastroesophageal reflux disease) Qualifiers: Esophagitis presence: without esophagitis Qualified Code(s): K21.9 - Gastro -esophageal reflux disease without esophagitis Is this a current diagnosis for this admission?: Yes
--- NOTE | 2017-09-13 13:26 | Progress Note ---
Provider Note Provider Note: Patients have aspirations pneumonia so most likely are related to the sepsis through this presence pneumonia
== END 2017-07-24 16:20 | disposition home health service (06) | DRG 870 ==
LOC: ER 10:42 → EEVIPCON 10:42 → EH 13:26 → ICU 16:51 → 4N 07-20 22:23
PROVIDERS: ADMIT Family Medicine; ATTEND Family Medicine
PROC: 5A1955Z Respiratory Ventilation, Greater than 96 Consecutive Hours (ICD-10-PCS; principal; 2017-07-14)
PROC: 0BH17EZ Insertion of Endotracheal Airway into Trachea, Via Natural or Artificial Opening (ICD-10-PCS; 2017-07-14)
PROC: 3E0F73Z Introduction of Anti-inflammatory into Respiratory Tract, Via Natural or Artificial Opening (ICD-10-PCS; 2017-07-14)
DX: A41.9 Sepsis, unspecified organism (principal); J96.01 Acute respiratory failure with hypoxia; J69.0 Pneumonitis due to inhalation of food and vomit; I82.621 Acute embolism and thrombosis of deep veins of right upper extremity; N17.9 Acute kidney failure, unspecified; M62.82 Rhabdomyolysis; Z78.1 Physical restraint status; L53.8 Other specified erythematous conditions; F31.9 Bipolar disorder, unspecified; J44.9 Chronic obstructive pulmonary disease, unspecified; I10 Essential (primary) hypertension; F20.9 Schizophrenia, unspecified; G89.4 Chronic pain syndrome; E78.00 Pure hypercholesterolemia, unspecified; R40.2430 Glasgow coma scale score 3-8, unspecified time; T17.908A Unspecified foreign body in respiratory tract, part unspecified causing other injury, initial encounter; K21.9 Gastro-esophageal reflux disease without esophagitis; F41.9 Anxiety disorder, unspecified; F17.210 Nicotine dependence, cigarettes, uncomplicated; N40.1 Benign prostatic hyperplasia with lower urinary tract symptoms; R33.8 Other retention of urine; Z79.899 Other long term (current) drug therapy; Z86.14 Personal history of Methicillin resistant Staphylococcus aureus infection; Z90.49 Acquired absence of other specified parts of digestive tract; Z88.8 Allergy status to other drugs, medicaments and biological substances; Z91.013 Allergy to seafood; Z82.49 Family history of ischemic heart disease and other diseases of the circulatory system
CPT/HCPCS: 36415; 51702; 70450; 71045; 71046; 74018; 80048; 80053; 80307; 81001; 82140; 82550; 82553; 82803; 83605; 83735; 83880; 84100; 84478; 84484; 85025; 85027; 85610; 85730; 87040; 87070; 87077; 87186; 87205; 93005; 93010; 93971; 94002; 94003; 94640; 94799; 96374; 99291; 99292; J0295; J0330; J1100; J1650; J1940; J1956; J2704; J2765; J3010; J3480; J3490; J7060; J7620; S0028

== ENCOUNTER → 2017-09-17 | Outpatient (CLI) | payer MEDICARE, MEDICAID ==
--- NOTE | 2017-09-17 21:21 | RADIOLOGY REPORT (SQ) ---
EXAM DESCRIPTION: MRI HEAD WITHOUT COMPLETED DATE/TIME: 09/17/2017 8:54 pm REASON FOR STUDY: R29.6 REPEATED FALLS R29.6 REPEATED FALLS COMPARISON: CT 07/14/2017 TECHNIQUE: Multiplanar imaging includes non-contrasted T1, T2, FLAIR, and diffusion with ADC map seq uences. Images stored on PACS. LIMITATIONS: None. FINDINGS: ANATOMY: No anomalies. Normal vascular flow voids. Pituitary fossa normal. CSF SPACES: Normal in size and contour. No hemorrhage. CEREBRUM: Sulci and gyri normal in size and contour. Normal white matter signal on FLAIR imaging. No evidence of hemorrhage, mass, or extraaxial fluid collection. POSTERIOR FOSSA: No signal alteration. No hemorrhage. No edema, masses or mass effect. Internal ardián tory canals, cerebello-pontine angles, mastoids normal. DIFFUSION IMAGING: Negative for acute or sub-acute infarction. ORBITS: No masses. Globes normal. PARANASAL SINUSES: No fluid levels. Mucosa normal. OTHER: No other significant finding. IMPRESSION: NORMAL MRI OF THE BRAIN WITHOUT INTRAVENOUS GADOLINIUM CONTRAST. EVIDENCE OF ACUTE STROKE: NO. TECHNICAL DOCUMENTATION: JOB ID: [id number] [employer]- All Rights Reserved Reading location - IP/workstation name: [email or web address]
== END ==
LOC: RAD 18:34
PROVIDERS: ATTEND Family Medicine
DX: R29.6 Repeated falls (principal)
CPT/HCPCS: 70551

== ENCOUNTER → 2017-11-13 | Outpatient (CLI) | payer MEDICARE, MEDICAID ==
--- NOTE | 2017-11-14 08:25 | XCELERA REPORT ---
[address] [address] Upper Extremity Venous Evaluation Name: DONALD GARRIDO Age: 42 yrs Gender: Male : 1975 Patient Status: Outpatient Patient Location: Study Date: 11/13/2017 09:50 AM Procedure: Unilateral duplex scan of the right upper extremity veins was performed, including responses to compression and other maneuvers. Reason For Study: HAI DVT Ordering Physician: KAY BRUSH Performed By: Daksha Wyman Right Side Venous Evaluation Color flow duplex imaging shows all veins to be compressible with [id number] color filling. Pulsatile and phasic flow is present within all right upper extremity deep and superficial veins examined. Interpretation Summary Normal compression, patency, spontaneous and phasic flow of the right upper extremity veins. : KAY BRUSH > Freddy Soriano
== END ==
LOC: SP 09:45
PROVIDERS: ATTEND Family Medicine
DX: I82.621 Acute embolism and thrombosis of deep veins of right upper extremity (principal)
CPT/HCPCS: 93971

== ENCOUNTER 2018-03-21 22:48 | Inpatient (IN) | payer MEDICARE, MEDICAID ==
[2018-03-21] MEDS ORDERED: METHYLPREDNISOLONE INJ 125 MG/2 ML SDV IV ONE (23:11)
[2018-03-21] MEDS ORDERED: IPRATROPIUM/ALBUTEROL 0.5-2.5 MG/3 ML AMPUL NEB ONE (23:11)
--- NOTE | 2018-03-21 23:20 | ER Document Report ---
ED General - General Stated Complaint: SHORTNESS OF BREATH Time Seen by Provider: 03/21/18 22:59 Primary Care Provider: KAY BRUSH MD [Primary Care Provider] - Follow up as needed Notes: Patient is a 43-year-old male who presents with complaint of difficulty breathing. He says started around 9 AM this morning. Patient is difficult to g et a full history from. Sometimes he will answer questions and other times he will just her off into space and will not comment on anything. Paramedics thought maybe there is some alcohol involved however there is no report of actually seeing alcohol at the home. Patient is a smoker. He does have previous history of COPD. Patient is on psychiatric medications. He did bring his medications with him. He looks like he does not take his medications on a regular basis. He did take them on Sunday in the morning and afternoon. Did not take any evening. He has not taken any today according to his medication layout they brought with him. He does admit to taking his oxycodone today. Paramedics gave patient 1 DuoNeb treatment. TRAVEL OUTSIDE OF THE [place] IN LAST 30 DAYS: No - Related Data Allergies/Adverse Reactions: iodine [Iodine] Allergy (Intermediate, Verified 07/14/17 11:34) Blisters Shellfish * [Shellfish] Allergy (Intermediate, Verified 07/14/17 11:34) Blisters clonazepam [From Klonopin] Allergy (Verified 07/14/17 11:34) Blisters Past Medical History - Social History Smoking Status: Current Every Day Smoker Frequency of alcohol use: None Drug Abuse: None Family History: Hypertension - Past Medical History Cardiac Medical History: Reports: Hx Hypercholesterolemia, Hx Hypertension Denies: Hx Coronary Artery Disease, Hx Heart Attack Pulmonary Medical History: Reports: Hx COPD Denies: Hx Asthma, Hx Bronchitis, Hx Pneumonia Neurological Medical History: Denies: Hx Cerebrovascular Accident, Hx Seizures Renal/ Medical History: Reports: Hx Renal Insufficiency. Denies: Hx Peritoneal Dialysis GI Medical History: Reports: Hx Gastroesophageal Reflux Disease Musculoskeletal Medical History: Denies Hx Arthritis, Reports Hx Musculoskeletal Deformity, Reports Hx Musculoskeletal Trauma Skin Medical History: Reports Hx Cellulitis, Reports Hx MRSA Psychiatric Medical History: Reports: Hx Bipolar Disorder, Hx Depression, Hx Schizophrenia Infectious Medical History: Reports: Hx MRSA Past Surgical History: Reports: Hx Cholecystectomy, Hx Oral Surgery, Hx Orthopedic Surgery - 9 back surgeries, with lower abdominal midline incision. - Immunizations Hx Diphtheria, Pertussis, Tetanus Vaccination: Yes Hx Pneumococcal Vaccination: 02/06/00 Review of Systems - Review of Systems Notes: My Normal Review Basic REVIEW OF SYSTEMS: CONSTITUTIONAL : Denies fever, chills, or sweats. Denies recent illness. EENT: Denies eye, ear, throat, or mouth pain or symptoms. Denies nasal or sinus congestion. CARDIOVASCULAR: Denies chest pain. RESPIRATORY: Difficulty breathing GASTROINTESTINAL: Denies abdominal pain. Denies nausea, vomiting, or diarrhea. GENITOURINARY: Denies difficulty urinating, painful urination, burning, frequency, or blood in urine. MUSCULOSKELETAL: Denies neck or back pain or joint pain or swelling. SKIN: Denies rash or skin lesions. NEUROLOGICAL: Denies altered mental status or loss of consciousness. Denies headache. Denies weakness or paralysis or loss of use of either side. Denies problems with gait or speech. Denies sensory or motor loss. ALL OTHER SYSTEMS REVIEWED AND NEGATIVE. Physical Exam - Vital signs Vitals: Temp Resp Pulse Ox 98.2 F 21 H 83 L 03/21/18 23:29 03/21/18 23:29 03/21/18 23:29 - Notes Notes: General Appearance: Well nourished, alert, cooperative, no acute distress, no obvious discomfort. Vitals: reviewed, See vital signs table. Head: no swelling or tenderness to the head Eyes: PERRL, EOMI, Conjuctiva clear Mouth: No decreasd moisture Lungs: Diffuse wheezing, No rales, No rhonci, No accessory muscle use, good air exchange bilaterally. Heart: Normal rate, Regular rythm, No murmur, no rub Abdomen: Normal BS, soft, No rigidity, No abdominal tenderness, No guarding, no rebound, no abdominal masses, no organomegaly Extremities: strength 5/5 in all extremities, good pulses in all extremities, no swelling or tenderness in the extremities, no edema. Skin: warm, dry, appropriate color, no rash Neuro: speech clear, oriented x 2, answers some questions appropriately. Sometimes I have asked the patient twice before he will answer the question. He does move all extremities without any difficulty. Cranial nerves II through XII are intact. Course - Re-evaluation Re-evalutation: 03/22/18 02:45 Patient continues to have some hypoxemia. On nasal cannula his oxygen saturation continue to run in the 80s and therefore I switched him of the BiPAP which is doing well for him. He still has some tightness in his lungs. He has had several breathing treatments. Has had Solu-Medrol. He does have some altered mental status where he is able to answer questions but at times you have asking to 3 times before answering. This could be related to his opiate medications however his pupils are not really pinpoint. Looking through his records this has happened in the past. Looking through his medications he obviously is not compliant with a lot of his medications including his psychiatric medications that this could possibly playing a role in his altered mental status as well. I did scan his head and it is negative. I do not suspect meningitis and that the patient does not have back pain headache neck pain or neck stiffness and he does not have a fever. I did speak with Dr. Brush, patient's primary care physician, who agrees to meet the patient. - Vital Signs Vital signs: Temp Pulse Resp BP Pulse Ox 98.2 F 20 135/94 H 92 03/21/18 23:29 03/22/18 02:08 03/22/18 00:00 03/22/18 02:08 - Laboratory Result Diagrams: 03/21/18 23:30 03/21/18 23:30 Laboratory results interpreted by me: 03/21/18 03/21/18 23:30 23:30 WBC 11.0 H RDW 14.9 H Absolute Neutrophils 8.5 H Glucose 115 H - EKG Interpretation by Me Additional EKG results interpreted by me: 03/21/18 23:43 EKG is reviewed and interpreted by me. EKG shows sinus rhythm with a rate of [address] segment elevation or depression. No ischemic T wave inversions. WV interval, QRS duration, QT intervals are within normal range. No old EKG available for comparison. Discharge - Discharge Clinical Impression: COPD exacerbation Altered mental status Qualifiers: Altered mental status type: unspecified Qualified Code(s): R41.82 - Altered mental status, unspecified Condition: Stable Disposition: ADMITTED INPATIENT Admitting Provider: [facility] Admitted: IMCU Referrals: KAY BRUSH MD [Primary Care Provider] - Follow up as needed
--- NOTE | 2018-03-21 23:38 | RADIOLOGY REPORT (SQ) ---
EXAM DESCRIPTION: XR CHEST 1 VIEW COMPLETED DATE/TME: 03/21/2018 23:10 CLINICAL HISTORY: 43 years Male, dyspnea COMPARISON:07/24/2017 NUMBER OF VIEWS/TECHNIQUE: 1/AP FINDINGS: Adequate lung volume, prominent interstitium, normal cardiac silhouette, and intact bony thorax. IMPRESSION: No acute cardiopulmonary findings.
[2018-03-21 23:48] LABS: ABSOLUTE BASOPHILS # (AUTO) 0.1 10^3/uL (0.0-0.2); ABSOLUTE EOSINOPHILS # (AUTO) 0.1 10^3/uL (0.0-0.6); ABSOLUTE LYMPHOCYTES (AUTO) 1.6 10^3/uL (0.5-4.7); ABSOLUTE MONOCYTES (AUTO) 0.8 10^3/uL (0.1-1.4); ABSOLUTE NEUT (AUTO) 8.5 10^3/uL (1.7-8.2); BASOPHILS % (AUTO) 0.7 % (0-2); EOSINOPHILS % (AUTO) 0.8 % (0-6); HEMATOCRIT 41.8 % (37.9-51.0); HEMOGLOBIN 14.3 g/dL (13.5-17.0); LYMPHOCYTES % (AUTO) 14.4 % (13-45); MEAN CORPUSCULAR HEMOGLOBIN 28.3 pg (27.0-33.4); MEAN CORPUSCULAR HGB CONC 34.3 g/dL (32.0-36.0); MEAN CORPUSCULAR VOLUME 83 fl (80-97); MONOCYTES % (AUTO) 7.1 % (3-13); PLATELET COUNT 267 10^3/uL (150-450); RED BLOOD COUNT 5.06 10^6/uL (4.35-5.55); RED CELL DISTRIBUTION WIDTH 14.9 % (11.5-14.0); TOTAL CELLS COUNTED % (AUTO) 100 %
[2018-03-22] LABS: ALANINE AMINOTRANSFERASE 54 U/L (21-72); ALBUMIN 4.5 g/dL (3.5-5.0); ALKALINE PHOSPHATASE 65 U/L (38-126); ANION GAP 9 (5-19); ASPARTATE AMINO TRANSFERASE 42 U/L (17-59); BILIRUBIN,DIRECT 0.2 mg/dL (0.0-0.4); BILIRUBIN,TOTAL 0.4 mg/dL (0.2-1.3); BLOOD UREA NITROGEN 13 mg/dL (7-20); CALCIUM 9.4 mg/dL (8.4-10.2); CARBON DIOXIDE 26 mmol/L (22-30); CHLORIDE 107 mmol/L (98-107); GLUCOSE 115 mg/dL (75-110); SODIUM 142.4 mmol/L (137-145); TOTAL PROTEIN 7.5 g/dL (6.3-8.2)
[2018-03-22 00:01] LABS: ALCOHOL < 10 mg/dL (NONE DETECTED)
[2018-03-22 00:24] LABS: VENOUS BLOOD BASE EXCESS -1.5 mmol/L; VENOUS BLOOD HCO3 23.5 mmol/L (20-32); VENOUS BLOOD PCO2 40.6 mmHg (35-63); VENOUS BLOOD PH 7.38 (7.30-7.42)
[2018-03-22] MEDS ORDERED: ALBUTEROL SULFATE 0.083% NEB 2.5 MG/3 ML AMPUL NEB ONE (01:11)
--- NOTE | 2018-03-22 01:26 | RADIOLOGY REPORT (SQ) ---
EXAM DESCRIPTION: CT HEAD WITHOUT IV CONTRAST COMPLETED DATE/TME: 03/21/2018 23:13 CLINICAL HISTORY: 43 years, Male, altered mental status COMPARISON: None. TECHNIQUE: Axial images of the head were performed without the use of intravenous contrast, with sagittal and coronal reformatted images. Images stored on PACS. All CT scanners at this facility use dose modulation, iterative reconstruction, and/or weight based dosing when appropriate to reduce radiation dose to as low as reasonably achievable (ALARA). [facility]: Dose Right [facility]: CareDose [facility]: Dose Right [facility]: Teradose 4D [facility]: [employer] LIMITATIONS: None. FINDINGS: No evidence of acute hemorrhage or infarct. No evidence of mass or hydrocephalus. The visualized paranasal sinuses are clear. IMPRESSION: No acute finding. TECHNICAL DOCUMENTATION: Quality ID # [id number]: Final reports with documentation of one or more dose reduction techniques (e.g., Automated exposure control, adjustment of the mA and/or kV according to patient size, use of iterative reconstruction technique) copyright 2011 [employer]- All Rights Reserved
[2018-03-22] MEDS ORDERED: LIDOCAINE 1%/EPINEPHRINE INJ 20 ML VIAL INJ ONE (01:30)
[2018-03-22] MEDS: HEPARIN SOD (PORCINE) 5,000 UNIT/ML 1 ML SYRINGE SUBCUT SCH ×3 (05:44→21:34)
[2018-03-22] MEDS ORDERED: METHYLPREDNISOLONE INJ 125 MG/2 ML SDV IV SCH ×2 (06:00→14:00)
[2018-03-22] MEDS: LANSOPRAZOLE 30 MG TAB.RAP.DR PO SCH (07:57)
[2018-03-22] MEDS: GABAPENTIN 300 MG CAPSULE PO SCH ×3 (07:57→21:33)
--- NOTE | 2018-03-22 08:27 | PDOC H&P ---
History of Present Illness Admission Date/PCP: 03/22/18 02:54 KAY BRUSH MD Patient complains of: Shortness of the breath History of Present Illness: DONALD GARRIDO is a 43 year old male This is a 43-year-old male with a significant history of the COPD chronic smoker chronic pain syndrome currently see a pain management bipolar disorder currently see a psychiatrist and a top of that is a very noncompliance came to the emergency department with the complaint of shortness of the breath and altered mental status Emergency department initial workup was all negative including the CT of the head was negative except patients have a COPD with acute exacerbations When I saw the patient's in the floor patient is doing better patients have ongoing pain issue Patient is pretty much alert awake oriented answering all questions very appropriately Patient's denied any chest pain to than any shortness of the breath Patient have a history of the DVT in upper extremity was finished Xarelto currently no sign of any DVT or PE Initially patient was put on the BiPAP currently on a nasal cannula Past Medical History Cardiac Medical History: Reports: Hyperlipidema, Hypertension Denies: Coronary Artery Disease, Myocardial Infarction Pulmonary Medical History: Reports: Chronic Obstructive Pulmonary Disease (COPD) Denies: Asthma, Bronchitis, Pneumonia Neurological Medical History: Denies: Seizures GI Medical History: Reports: Gastroesophageal Reflux Disease Musculoskeltal Medical History: Denies: Arthritis Psychiatric Medical History: Reports: Bipolar Disorder, Depression Hematology: Denies: Anemia Infectious Medical History: Reports: Methicillin-Resistant Staph Aureus Past Surgical History Past Surgical History: Reports: Cholecystectomy, Orthopedic Surgery - 9 back surgeries, with lower abdominal midline incision. Social History Smoking Status: Current Every Day Smoker Cigarettes Packs Per Day: 1 Frequency of Alcohol Use: Social Hx Recreational Drug Use: No Drugs: None Hx Prescription Drug Abuse: Yes Family History Family History: Hypertension Parental Family History Reviewed: Yes Children Family History Reviewed: Yes Sibling(s) Family History Reviewed.: Yes Medication/Allergy Home Medications: Atorvastatin Calcium [Lipitor 10 mg Tablet] 10 mg PO QHS 03/22/18 Baclofen [Baclofen 10 mg Tablet] 1 tab PO QID 03/22/18 Benztropine Mesylate [Benztropine Mesylate 2 mg Tablet] 2 mg PO DAILY 03/22/18 Esomeprazole Magnesium 40 mg PO DAILY 03/22/18 Fluoxetine HCl 80 mg PO DAILY 03/22/18 Gabapentin [Neurontin 300 mg Capsule] 300 mg PO Q8 03/22/18 Haloperidol 10 mg PO QHS 03/22/18 Metoprolol Succinate [Toprol Xl] 50 mg PO DAILY 03/22/18 Oxycodone HCl [Oxycodone HCl ER] 15 mg PO QID 03/22/18 Allergies/Adverse Reactions: iodine [Iodine] Allergy (Intermediate, Verified 07/14/17 11:34) Blisters Shellfish * [Shellfish] Allergy (Intermediate, Verified 07/14/17 11:34) Blisters clonazepam [From Klonopin] Allergy (Verified 07/14/17 11:34) Blisters Review of Systems Constitutional: ABSENT: chills, fever(s), headache(s), weight gain, weight loss Eyes: ABSENT: visual disturbances Ears: ABSENT: hearing changes Cardiovascular: ABSENT: chest pain, dyspnea on exertion, edema, orthropnea, palpitations Respiratory: ABSENT: cough, hemoptysis Gastrointestinal: ABSENT: abdominal pain, constipation, diarrhea, hematemesis, hematochezia, nausea, vomiting Genitourinary: ABSENT: dysuria, hematuria Musculoskeletal: ABSENT: joint swelling Integumentary: ABSENT: rash, wounds Neurological: ABSENT: abnormal gait, abnormal speech, confusion, dizziness, focal weakness, syncope Psychiatric: ABSENT: anxiety, depression, homidical ideation, suicidal ideation Endocrine: ABSENT: cold intolerance, heat intolerance, menstrual abnormalities, polydipsia, polyuria Hematologic/Lymphatic: ABSENT: easy bleeding, easy bruising, lymphadenopathy Physical Exam Vital Signs: Temp Pulse Resp BP Pulse Ox 98 F 87 22 H 129/85 H 96 03/22/18 05:00 03/22/18 05:00 03/22/18 05:00 03/22/18 05:00 03/22/18 05:00 Intake & Output 03/21/18 03/22/18 03/23/18 06:59 06:59 06:59 Intake Total 0 Output Total 0 Balance 0 Weight 114 kg General appearance: PRESENT: no acute distress, well-developed, well-nourished Head exam: PRESENT: atraumatic, normocephalic Eye exam: PRESENT: conjunctiva pink, EOMI, PERRLA. ABSENT: scleral icterus Ear exam: PRESENT: normal external ear exam Mouth exam: PRESENT: moist, tongue midline Neck exam: PRESENT: full ROM. ABSENT: carotid bruit, JVD, lymphadenopathy, thyromegaly Respiratory exam: PRESENT: wheezes Cardiovascular exam: PRESENT: RRR. ABSENT: diastolic murmur, rubs, systolic murmur Pulses: PRESENT: normal dorsalis pedis pul, +2 pedal pulses bilateral Vascular exam: PRESENT: normal capillary refill GI/Abdominal exam: PRESENT: normal bowel sounds, soft. ABSENT: distended, guarding, mass, organolmegaly, rebound, tenderness Rectal exam: PRESENT: deferred Extremities exam: ABSENT: pedal edema Neurological exam: PRESENT: alert, awake, oriented to person, oriented to place, oriented to time, oriented to situation, CN II-XII grossly intact. ABSENT: motor sensory deficit Psychiatric exam: PRESENT: appropriate affect, normal mood. ABSENT: homicidal ideation, suicidal ideation Skin exam: PRESENT: dry, intact, rash, warm. ABSENT: cyanosis Results Laboratory Results: 03/21/18 23:30 03/21/18 23:30 03/21/18 03/21/18 03/21/18 23:30 23:30 23:30 WBC 11.0 H RBC 5.06 Hgb 14.3 Hct 41.8 MCV 83 MCH 28.3 MCHC 34.3 RDW 14.9 H Plt Count 267 Seg Neutrophils % 77.0 Lymphocytes % 14.4 Monocytes % 7.1 Eosinophils % 0.8 Basophils % 0.7 Absolute Neutrophils 8.5 H Absolute Lymphocytes 1.6 Absolute Monocytes 0.8 Absolute Eosinophils 0.1 Absolute Basophils 0.1 VBG pH Cancelled VBG pCO2 Cancelled VBG HCO3 Cancelled VBG Base Excess Cancelled Sodium 142.4 Potassium 4.0 Chloride 107 Carbon Dioxide 26 Anion Gap 9 BUN 13 Creatinine 1.06 Est GFR ( Amer) > 60 Est GFR (Non-Af Amer) > 60 Glucose 115 H Calcium 9.4 Total Bilirubin 0.4 AST 42 ALT 54 Alkaline Phosphatase 65 Total Protein 7.5 Albumin 4.5 03/22/18 00:15 WBC RBC Hgb Hct MCV MCH MCHC RDW Plt Count Seg Neutrophils % Lymphocytes % Monocytes % Eosinophils % Basophils % Absolute Neutrophils Absolute Lymphocytes Absolute Monocytes Absolute Eosinophils Absolute Basophils VBG pH 7.38 VBG pCO2 40.6 VBG HCO3 23.5 VBG Base Excess -1.5 Sodium Potassium Chloride Carbon Dioxide Anion Gap BUN Creatinine Est GFR ( Amer) Est GFR (Non-Af Amer) Glucose Calcium Total Bilirubin AST ALT Alkaline Phosphatase Total Protein Albumin Impressions: Chest X-Ray 03/21/18 23:10 IMPRESSION: No acute cardiopulmonary findings. Head CT 03/21/18 23:13 IMPRESSION: No acute finding. TECHNICAL DOCUMENTATION: Quality ID # 436: Final reports with documentation of one or more dose reduction techniques (e.g., Automated exposure control, adjustment of the mA and/or kV according to patient size, use of iterative reconstruction technique) copyright 2011 [employer]- All Rights Reserved Assessment & Plan - Diagnosis (1) Altered mental status Qualifiers: Altered mental status type: unspecified Qualified Code(s): R41.82 - Altered mental status, unspecified Is this a current diagnosis for this admission?: Yes Plan: Patient is currently on a back to the baseline patient CT head was negative (2) COPD exacerbation Is this a current diagnosis for this admission?: Yes Plan: Continues on respiratory treatments and Solu-Medrol (3) Anxiety and depression Is this a current diagnosis for this admission?: Yes (4) BPH (benign prostatic hypertrophy) Qualifiers: Lower urinary tract symptom presence: symptoms present Is this a current diagnosis for this admission?: Yes Plan: on the Flomax (5) Bipolar disorder Qualifiers: Active/Remission status: currently active Is this a current diagnosis for this admission?: Yes Plan: Is a very noncompliance with the medications We will consult the psych (6) Chronic back pain Qualifiers: Back pain location: low back pain Is this a current diagnosis for this admission?: Yes Plan: Is currently getting the pain medications per the pain management (7) Chronic pain syndrome Is this a current diagnosis for this admission?: Yes (8) Deep vein thrombosis of right upper extremity Qualifiers: Chronicity: unspecified Is this a current diagnosis for this admission?: No Plan: Currently all resolved (9) Hypertension Qualifiers: Hypertension type: essential hypertension Is this a current diagnosis for this admission?: Yes (10) Smoker Is this a current diagnosis for this admission?: Yes (11) Noncompliance Is this a current diagnosis for this admission?: Yes - Time Time Spent: 30 to 50 Minutes Medications reviewed and adjusted accordingly: Yes Anticipated discharge: Home Within: Other - Inpatient Certification Based on my medical assessment, after consideration of the patient's comorb idities, presenting symptoms, or acuity I expect that the services needed warrant INPATIENT care.: Yes I certify that my determination is in accordance with my understanding of Medicare's requirements for reasonable and necessary INPATIENT services [42 CFR 412.3e].: Yes Medical Necessity: Need Close Monitoring Due to Risk of Patient Decompensation, Need for IV Antibiotics Post Hospital Care: D/C [employer] Supervisor Documentation - Plan Summary Plan Summary: Admit the patient in IMCU See other MD orders
[2018-03-22] MEDS: IPRATROPIUM/ALBUTEROL 0.5-2.5 MG/3 ML AMPUL NEB SCH ×4 (08:37→20:54)
--- NOTE | 2018-03-22 08:57 | EKG REPORT ---
SEVERITY:- BORDERLINE ECG - SINUS RHYTHM PROBABLE LEFT ATRIAL ABNORMALITY LEFT AXIS DEVIATION : Confirmed by: Irene Loepz MD 22-Mar-2018 08:57:01
[2018-03-22] MEDS: BENZTROPINE MESYLATE 1 MG TABLET PO SCH (09:18)
[2018-03-22] MEDS: OXYCODONE HCL IR 5 MG TABLET PO PRN ×3 (09:19→21:44)
[2018-03-22] MEDS: FLUOXETINE HCL 20 MG CAPSULE PO SCH (09:23)
[2018-03-22] MEDS: METOPROLOL SUCCINATE 50 MG TAB.SR.24H PO SCH (09:23)
[2018-03-22] MEDS: CEFEPIME 1 GM/D5W RTU 1 GM/50 ML RTUPB IV SCH ×2 (09:24→21:33)
[2018-03-22] MEDS ORDERED: (PENDING PHARMACY ID) (Esomeprazole Magnesium [Esomeprazole Magnesium] 40 MG) PO SCH (10:00)
[2018-03-22] MEDS ORDERED: (PENDING PHARMACY ID) (Fluoxetine Hcl [Fluoxetine Hcl] 80 MG) PO SCH (10:00)
[2018-03-22] MEDS ORDERED: (PENDING PHARMACY ID) (Benztropine Mesylate [Benztropine Mesylate 2 Mg Tablet] 2 MG) PO SCH (10:00)
--- NOTE | 2018-03-22 10:42 | RADIOLOGY REPORT (SQ) ---
EXAM DESCRIPTION: CT CHEST WITHOUT COMPLETED DATE/TIME: 03/22/2018 10:24 am REASON FOR STUDY: sob COMPARISON: Chest x-ray dated 03/21/2018, prior CT chest dated 05/26/2015 TECHNIQUE: CT scan performed of the chest without intravenous contrast. Images reviewed with lung, soft tissue and bone windows. Reconstructed coronal and sagittal MPR images reviewed. All images st ored on PACS. All CT scanners at this facility use dose modulation, iterative reconstruction, and/or weight based d osing when appropriate to reduce radiation dose to as low as reasonably achievable (ALARA). [facility]: Dose Right [facility]: CareDose [facility]: Dose Right [facility]: Teradose 4D [facility]: [employer] RADIATION DOSE: CT Rad equipment meets quality standard of care and radiation dose reduction techniq ues were employed. CTDIvol: 17.0 mGy. DLP: 685 mGy-cm. mGy. LIMITATIONS: No technical limitations. FINDINGS: LUNGS AND PLEURA: No masses, infiltrates, or pneumothorax. No pleural effusions or pleura l calcifications. HILAR AND MEDIASTINAL STRUCTURES: There are small mediastinal nodes present these are unchanged from 2016. HEART AND VASCULAR STRUCTURES: No aneurysm. No pericardial effusion. UPPER ABDOMEN: No significant findings. Limited exam. THYROID AND OTHER SOFT TISSUES: No masses. No adenopathy. BONES: No significant finding. HARDWARE: None in the chest. OTHER: No other significant findings. IMPRESSION: NO SIGNIFICANT FINDING ON NON-CONTRASTED CHEST CT. TECHNICAL DOCUMENTATION: JOB ID: [id number] Quality ID # [id number]: Final reports with documentation of one or more dose reduction techniques (e.g., Au tomated exposure control, adjustment of the mA and/or kV according to patient size, use of iterative reconstruction technique) 2010 [employer]- All Rights Reserved Reading location - IP/workstation name: [email or web address]
[2018-03-22 13:26] LABS: APPEARANCE,URINE CLEAR; BILIRUBIN,URINE NEGATIVE (NEGATIVE); COLOR,URINE YELLOW; GLUCOSE, URINE NEGATIVE (NEGATIVE); KETONES,URINE NEGATIVE (NEGATIVE); LEUKOCYTE ESTERASE,URINE NEGATIVE (NEGATIVE); NITRITE,URINE NEGATIVE (NEGATIVE); PROTEIN,URINE NEGATIVE (NEGATIVE); URINE SPECIFIC GRAVITY 1.023; UROBILINOGEN,URINE NEGATIVE mg/dL (<2.0)
[2018-03-22 13:41] LABS: URINE AMPHETAMINES SCREEN NEGATIVE; URINE BARBITURATES SCREEN NEGATIVE; URINE COCAINE SCREEN NEGATIVE; URINE MARIJUANA (THC) SCREEN NEGATIVE; URINE METHADONE SCREEN NEGATIVE; URINE PHENCYCLIDINE SCREEN NEGATIVE
[2018-03-22] MEDS ORDERED: (PENDING PHARMACY ID) (Oxycodone Hcl [Oxycodone Hcl Er] 15 MG) PO SCH (14:00)
[2018-03-22 14:04] LABS: URINE BENZODIAZEPINES SCREEN UNCONFIRMED POSITIVE
[2018-03-22] MEDS: METHYLPREDNISOLONE INJ 125 MG/2 ML SDV IV SCH ×2 (14:36→21:34)
[2018-03-22] MEDS: ACETAMINOPHEN 325 MG TABLET PO PRN (14:36)
[2018-03-22] MEDS: ATORVASTATIN CALCIUM 10 MG TABLET PO SCH (21:45)
[2018-03-23] MEDS: METHYLPREDNISOLONE INJ 125 MG/2 ML SDV IV SCH ×3 (05:23→21:58)
[2018-03-23] MEDS: OXYCODONE HCL IR 5 MG TABLET PO PRN ×2 (05:23→11:46)
[2018-03-23] MEDS: GABAPENTIN 300 MG CAPSULE PO SCH ×3 (05:23→21:57)
[2018-03-23] MEDS: HEPARIN SOD (PORCINE) 5,000 UNIT/ML 1 ML SYRINGE SUBCUT SCH ×3 (05:23→21:59)
[2018-03-23] MEDS: LANSOPRAZOLE 30 MG TAB.RAP.DR PO SCH (05:23)
[2018-03-23 05:42] LABS: ABSOLUTE BASOPHILS # (AUTO) 0.1 10^3/uL (0.0-0.2); ABSOLUTE MONOCYTES (AUTO) 0.5 10^3/uL (0.1-1.4); ABSOLUTE NEUT (AUTO) 12.1 10^3/uL (1.7-8.2); BASOPHILS % (AUTO) 0.6 % (0-2); HEMATOCRIT 40.7 % (37.9-51.0); HEMOGLOBIN 13.5 g/dL (13.5-17.0); LYMPHOCYTES % (AUTO) 7.2 % (13-45); MEAN CORPUSCULAR HEMOGLOBIN 27.4 pg (27.0-33.4); MEAN CORPUSCULAR HGB CONC 33.3 g/dL (32.0-36.0); MEAN CORPUSCULAR VOLUME 82 fl (80-97); MONOCYTES % (AUTO) 3.8 % (3-13); PLATELET COUNT 265 10^3/uL (150-450); RED BLOOD COUNT 4.94 10^6/uL (4.35-5.55); RED CELL DISTRIBUTION WIDTH 14.8 % (11.5-14.0); SEGMENTED NEUTROPHILS % (AUTO) 88.4 % (42-78); TOTAL CELLS COUNTED % (AUTO) 100 %; WHITE BLOOD COUNT 13.7 10^3/uL (4.0-10.5)
[2018-03-23 06:05] LABS: ALANINE AMINOTRANSFERASE 41 U/L (21-72); ALBUMIN 4.2 g/dL (3.5-5.0); ALKALINE PHOSPHATASE 62 U/L (38-126); ANION GAP 11 (5-19); ASPARTATE AMINO TRANSFERASE 29 U/L (17-59); BILIRUBIN,DIRECT 0.2 mg/dL (0.0-0.4); BILIRUBIN,TOTAL 0.3 mg/dL (0.2-1.3); BLOOD UREA NITROGEN 19 mg/dL (7-20); CALCIUM 9.7 mg/dL (8.4-10.2); CARBON DIOXIDE 24 mmol/L (22-30); CHLORIDE 106 mmol/L (98-107); GLUCOSE 168 mg/dL (75-110); POTASSIUM 4.8 mmol/L (3.6-5.0); SODIUM 140.5 mmol/L (137-145); TOTAL PROTEIN 6.8 g/dL (6.3-8.2)
[2018-03-23] MEDS: IPRATROPIUM/ALBUTEROL 0.5-2.5 MG/3 ML AMPUL NEB SCH ×4 (08:36→20:59)
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
[2018-03-23] MEDS: CEFEPIME 1 GM/D5W RTU 1 GM/50 ML RTUPB IV SCH ×2 (11:45→21:58)
[2018-03-23] MEDS: FLUOXETINE HCL 20 MG CAPSULE PO SCH (11:45)
[2018-03-23] MEDS: METOPROLOL SUCCINATE 50 MG TAB.SR.24H PO SCH (11:45)
[2018-03-23] MEDS: BENZTROPINE MESYLATE 1 MG TABLET PO SCH (11:46)
--- NOTE | 2018-03-23 15:09 | PSYCHOLOGICAL NOTE ---
Psych Note - Psych Note Date seen by psych provider: 03/23/18 Time seen by psych provider: 15:00 Psych Note: Reason for Consult: AMS/ bipolar noncompliant This is a 43-year-old male with a significant history of the COPD chronic smoker chronic pain syndrome currently see a pain management bipolar disorder currently see a psychiatrist and a top of that is a very noncompliance came to the emergency department with the complaint of shortness of the breath and altered mental status. Check-in conducted with patient Patient reports that he is still unsure of the date however thinks he remembers he was told by clinician yesterday it was a '17. Clinician reminded the patient that is currently 2019. When asked if you remember who the current president is he reports that he is President Brayn. He reports he remembers this from being asked yesterday also. He discloses that he is starting to do better and was able to walk some. He asks if he needs to use the walker all the time. Clinician stated that the nurse would be asked and they can come in and answer since the clinician does not known the answer. Patient reports that is fine. Patient is asked if he is had a history of difficulty with his memory. Patient states "not to his knowledge." Continue home psychiatric medications; clinician notes there is concern the patient has been noncompliant on his home psychiatric medications. At this time would be more beneficial to continue those medications as directed to be able to determine actual efficacy. Unspecified bipolar related disorder per history provided by patient Impression\\plan: Patient is cleared from acute psychiatric services. patient is presenting with some confusion to time however clearly can remember the conversation with clinician yesterday. If concerns continue, patient is recommended to follow-up with neurology. At this time the patient is denying taking medications inappropriately or missing doses other than at times his evening dose because he falls asleep early. There is reported concern the patient is noncompliant on his medications. Patient does not meet IVC criteria per [place] GS 122C. Dr. Figueroa was consulted and the care management of this patient; attending physician is agreement with recommendations and disposition.
[2018-03-23] MEDS: NICOTINE 21 MG/24 HR PATCH.TD24 TD SCH (16:01)
--- NOTE | 2018-03-23 17:49 | PDOC PROGRESS REPORT ---
Subjective Progress Note for:: 03/23/18 Subjective:: Patient reported some degree of tightness in his chest but denied any significant difficulty with breathing. No chest pain. No fever or chills but reported breathing out in sweats occasionally. No nausea, vomiting, or abdominal pain. Tolerating oral feeding. Concern about redness to thenar region of his palm. Reason For Visit: COPD ACUTE Physical Exam Vital Signs: Temp Pulse Resp BP Pulse Ox 98.3 F 88 20 130/70 H 96 03/23/18 16:20 03/23/18 16:20 03/23/18 16:20 03/23/18 16:20 03/23/18 16:20 Intake & Output 03/22/18 03/23/18 03/24/18 06:59 06:59 06:59 Intake Total 0 961 450 Output Total 0 450 Balance 0 511 450 Weight 114 kg 117.2 kg General appearance: PRESENT: no acute distress, obese, well-developed, well- nourished Head exam: PRESENT: atraumatic, normocephalic Mouth exam: PRESENT: moist Respiratory exam: PRESENT: clear to auscultation wan Cardiovascular exam: PRESENT: RRR. ABSENT: diastolic murmur, rubs, systolic murmur Vascular exam: PRESENT: normal capillary refill. ABSENT: pallor GI/Abdominal exam: PRESENT: normal bowel sounds, soft. ABSENT: distended, guarding, mass, organolmegaly, rebound, tenderness Extremities exam: ABSENT: pedal edema Neurological exam: PRESENT: alert, awake, oriented to person, oriented to place, oriented to time, oriented to situation, CN II-XII grossly intact. ABSENT: motor sensory deficit Psychiatric exam: PRESENT: appropriate affect, normal mood. ABSENT: homicidal ideation, suicidal ideation Skin exam: PRESENT: dry, warm Results Laboratory Results: 03/23/18 05:08 03/23/18 05:08 03/23/18 03/23/18 05:08 05:08 WBC 13.7 H RBC 4.94 Hgb 13.5 Hct 40.7 MCV 82 MCH 27.4 MCHC 33.3 RDW 14.8 H Plt Count 265 Seg Neutrophils % 88.4 H Lymphocytes % 7.2 L Monocytes % 3.8 Eosinophils % 0.0 Basophils % 0.6 Absolute Neutrophils 12.1 H Absolute Lymphocytes 1.0 Absolute Monocytes 0.5 Absolute Eosinophils 0.0 Absolute Basophils 0.1 Sodium 140.5 Potassium 4.8 Chloride 106 Carbon Dioxide 24 Anion Gap 11 BUN 19 Creatinine 0.83 Est GFR ( Amer) > 60 Est GFR (Non-Af Amer) > 60 Glucose 168 H Calcium 9.7 Magnesium 2.0 Total Bilirubin 0.3 AST 29 ALT 41 Alkaline Phosphatase 62 Total Protein 6.8 Albumin 4.2 Impressions: Chest X-Ray 03/21/18 23:10 IMPRESSION: No acute cardiopulmonary findings. Head CT 03/21/18 23:13 IMPRESSION: No acute finding. TECHNICAL DOCUMENTATION: Quality ID # 436: Final reports with documentation of one or more dose reduction techniques (e.g., Automated exposure control, adjustment of the mA and/or kV according to patient size, use of iterative reconstruction technique) copyright 2011 [employer]- All Rights Reserved Chest CT 03/22/18 00:00 IMPRESSION: NO SIGNIFICANT FINDING ON NON-CONTRASTED CHEST CT. Assessment & Plan - Diagnosis (1) COPD exacerbation Is this a current diagnosis for this admission?: Yes Plan: Continue current medication management. (2) Continuous tobacco abuse Is this a current diagnosis for this admission?: Yes Plan: Maintain on Nicotine patch therapy while on admission. Bedside counseling was done o smoking cessation. (3) Hypertension Qualifiers: Hypertension type: essential hypertension Is this a current diagnosis for this admission?: Yes Plan: Maintain on current medication management. (4) GERD (gastroesophageal reflux disease) Qualifiers: Esophagitis presence: without esophagitis Qualified Code(s): K21.9 - Gastro-esophageal reflux disease without esophagitis Is this a current diagnosis for this admission?: Yes Plan: Continue PPI prophylactic therapy while on admission. (5) Persistent insomnia Is this a current diagnosis for this admission?: Yes Plan: Start on Temazepam 15 mg po qhs. - Time Time Spent with patient: 25-34 minutes Medications reviewed and adjusted accordingly: Yes Anticipated discharge: Home with Homehealth Within: Other - Inpatient Certification Based on my medical assessment, after consideration of the patient's comorbidities, presenting symptoms, or acuity I expect that the services needed warrant INPATIENT care.: Yes I certify that my determination is in accordance with my understanding of Medicare's requirements for reasonable and necessary INPATIENT services [42 CFR 412.3e].: Yes Medical Necessity: Need Close Monitoring Due to Risk of Patient Decompensation, Need For IV Fluids, Need For Continuous Telemetry Monitoring, Need for Nebulizer Therapy and Monitoring of Response, Need for IV Antibiotics, Risk of Complication if Not Cared For in Hospital, Risk of Diagnosis Which Will Require Inpatient Eval/Care/Monitoring Post Hospital Care: D/C Electric[employer] Documentation - Plan Summary Plan Summary: Continue current medication management. Start on Temazepam 15 mg po qhs for reported persistent insomnia prior to admission.
[2018-03-23] MEDS: ATORVASTATIN CALCIUM 10 MG TABLET PO SCH (21:57)
[2018-03-24] MEDS: OXYCODONE HCL IR 5 MG TABLET PO PRN ×3 (02:09→15:07)
[2018-03-24] MEDS: TEMAZEPAM 15 MG CAPSULE PO PRN ×2 (02:14→21:10)
[2018-03-24 05:06] LABS: ABSOLUTE LYMPHOCYTES (AUTO) 0.7 10^3/uL (0.5-4.7); ABSOLUTE MONOCYTES (AUTO) 0.4 10^3/uL (0.1-1.4); ABSOLUTE NEUT (AUTO) 11.6 10^3/uL (1.7-8.2); BASOPHILS % (AUTO) 0.2 % (0-2); HEMATOCRIT 42.8 % (37.9-51.0); HEMOGLOBIN 14.4 g/dL (13.5-17.0); LYMPHOCYTES % (AUTO) 5.6 % (13-45); MEAN CORPUSCULAR HEMOGLOBIN 27.8 pg (27.0-33.4); MEAN CORPUSCULAR HGB CONC 33.7 g/dL (32.0-36.0); MEAN CORPUSCULAR VOLUME 83 fl (80-97); MONOCYTES % (AUTO) 3.1 % (3-13); PLATELET COUNT 274 10^3/uL (150-450); RED BLOOD COUNT 5.18 10^6/uL (4.35-5.55); SEGMENTED NEUTROPHILS % (AUTO) 91.1 % (42-78); TOTAL CELLS COUNTED % (AUTO) 100 %; WHITE BLOOD COUNT 12.8 10^3/uL (4.0-10.5)
[2018-03-24] MEDS: METHYLPREDNISOLONE INJ 125 MG/2 ML SDV IV SCH (06:23)
[2018-03-24] MEDS: GABAPENTIN 300 MG CAPSULE PO SCH ×3 (06:23→21:10)
[2018-03-24] MEDS: HEPARIN SOD (PORCINE) 5,000 UNIT/ML 1 ML SYRINGE SUBCUT SCH ×3 (06:23→21:10)
[2018-03-24] MEDS: LANSOPRAZOLE 30 MG TAB.RAP.DR PO SCH (06:23)
[2018-03-24] MEDS: NICOTINE 21 MG/24 HR PATCH.TD24 TD SCH (09:18)
[2018-03-24] MEDS: BENZTROPINE MESYLATE 1 MG TABLET PO SCH (09:18)
[2018-03-24] MEDS: METOPROLOL SUCCINATE 50 MG TAB.SR.24H PO SCH (09:18)
[2018-03-24] MEDS: FLUOXETINE HCL 20 MG CAPSULE PO SCH (09:19)
[2018-03-24] MEDS: IPRATROPIUM/ALBUTEROL 0.5-2.5 MG/3 ML AMPUL NEB SCH ×4 (09:31→20:08)
--- NOTE | 2018-03-24 10:21 | PDOC PROGRESS REPORT ---
Subjective Progress Note for:: 03/24/18 Subjective:: Patient reported lower back pain in area of his prior lumbar spine surgery. No chest pain or difficulty with breathing. No nausea, vomiting, or abdominal pain. Tolerating oral feeding. Reason For Visit: COPD ACUTE Physical Exam Vital Signs: Temp Pulse Resp BP Pulse Ox 97.2 F 81 18 140/78 H 94 03/24/18 07:20 03/24/18 09:47 03/24/18 09:47 03/24/18 07:20 03/24/18 09:47 Intake & Output 03/23/18 03/24/18 03/25/18 06:59 06:59 06:59 Intake Total 961 1700 Output Total 450 Balance 511 1700 Weight 117.2 kg 117.5 kg Physical Exam: General appearance: PRESENT: no acute distress, obese, well-developed, well- nourished Head exam: PRESENT: atraumatic, normocephalic Mouth exam: PRESENT: moist Respiratory exam: PRESENT: clear to auscultation wan Cardiovascular exam: PRESENT: RRR. ABSENT: diastolic murmur, rubs, systolic murmur Vascular exam: PRESENT: normal capillary refill. ABSENT: pallor GI/Abdominal exam: PRESENT: normal bowel sounds, soft. ABSENT: distended, guarding, mass, organomegaly, rebound, tenderness Extremities exam: ABSENT: pedal edema Neurological exam: PRESENT: alert, awake, oriented to person, oriented to place, oriented to time, oriented to situation, CN II-XII grossly intact. ABSENT: motor sensory deficit Psychiatric exam: PRESENT: appropriate affect, normal mood. ABSENT: homicidal ideation, suicidal ideation Skin exam: PRESENT: dry, warm Results Laboratory Results: 03/24/18 04:38 03/23/18 05:08 03/24/18 03/24/18 04:38 04:38 WBC 12.8 H RBC 5.18 Hgb 14.4 Hct 42.8 MCV 83 MCH 27.8 MCHC 33.7 RDW 15.0 H Plt Count 274 Seg Neutrophils % 91.1 H Lymphocytes % 5.6 L Monocytes % 3.1 Eosinophils % 0.0 Basophils % 0.2 Absolute Neutrophils 11.6 H Absolute Lymphocytes 0.7 Absolute Monocytes 0.4 Absolute Eosinophils 0.0 Absolute Basophils 0.0 Magnesium 2.2 Impressions: Chest X-Ray 03/21/18 23:10 IMPRESSION: No acute cardiopulmonary findings. Head CT 03/21/18 23:13 IMPRESSION: No acute finding. TECHNICAL DOCUMENTATION: Quality ID # 436: Final reports with documentation of one or more dose reduction techniques (e.g., Automated exposure control, adjustment of the mA and/or kV according to patient size, use of iterative reconstruction technique) copyright 2011 [employer]- All Rights Reserved Chest CT 03/22/18 00:00 IMPRESSION: NO SIGNIFICANT FINDING ON NON-CONTRASTED CHEST CT. Assessment & Plan - Diagnosis (1) COPD exacerbation Is this a current diagnosis for this admission?: Yes (2) Continuous tobacco abuse Is this a current diagnosis for this admission?: Yes (3) Hypertension Qualifiers: Hypertension type: essential hypertension Is this a current diagnosis for this admission?: Yes (4) GERD (gastroesophageal reflux disease) Qualifiers: Esophagitis presence: without esophagitis Qualified Code(s): K21.9 - Gastro-esophageal reflux disease without esophagitis Is this a current diagnosis for this admission?: Yes (5) Persistent insomnia Is this a current diagnosis for this admission?: Yes - Time Time Spent with patient: 25-34 minutes Medications reviewed and adjusted accordingly: Yes Anticipated discharge: Home with Homehealth Within: Other - Inpatient Certification Based on my medical assessment, after consideration of the patient's comorbidities, presenting symptoms, or acuity I expect that the services needed warrant INPATIENT care.: Yes I certify that my determination is in accordance with my understanding of Medicare's requirements for reasonable and necessary INPATIENT services [42 CFR 412.3e].: Yes Medical Necessity: Significant Comorbidiites Make Outpatient Treatment Too Risky, Need Close Monitoring Due to Risk of Patient Decompensation, Need For IV Fluids, Need For Continuous Telemetry Monitoring, Need for IV Antibiotics, Risk of Complication if Not Cared For in Hospital, Risk of Diagnosis Which Will Require Inpatient Eval/Care/Monitoring Post Hospital Care: D/C Direct Support Worker Documentation - Plan Summary Plan Summary: Decrease IV Solu Medrol to 40 mg [id number]. Maintain on current pain management medication. Continue on all other current medication management.
[2018-03-24] MEDS: CEFEPIME 1 GM/D5W RTU 1 GM/50 ML RTUPB IV SCH ×2 (10:45→21:10)
[2018-03-24] MEDS: METHYLPREDNISOLONE INJ 40 MG/1 ML SDV IV SCH ×2 (13:50→21:10)
[2018-03-24] MEDS: ATORVASTATIN CALCIUM 10 MG TABLET PO SCH (21:10)
[2018-03-25] MEDS: OXYCODONE HCL IR 5 MG TABLET PO PRN ×3 (00:09→21:44)
[2018-03-25 05:01] LABS: ABSOLUTE MONOCYTES (AUTO) 0.8 10^3/uL (0.1-1.4); ABSOLUTE NEUT (AUTO) 9.2 10^3/uL (1.7-8.2); BASOPHILS % (AUTO) 0.2 % (0-2); HEMATOCRIT 42.6 % (37.9-51.0); HEMOGLOBIN 14.5 g/dL (13.5-17.0); LYMPHOCYTES % (AUTO) 9.1 % (13-45); MEAN CORPUSCULAR HEMOGLOBIN 27.8 pg (27.0-33.4); MEAN CORPUSCULAR VOLUME 82 fl (80-97); MONOCYTES % (AUTO) 7.4 % (3-13); PLATELET COUNT 235 10^3/uL (150-450); RED CELL DISTRIBUTION WIDTH 14.9 % (11.5-14.0); SEGMENTED NEUTROPHILS % (AUTO) 83.3 % (42-78); TOTAL CELLS COUNTED % (AUTO) 100 %; WHITE BLOOD COUNT 11.1 10^3/uL (4.0-10.5)
[2018-03-25] MEDS: METHYLPREDNISOLONE INJ 40 MG/1 ML SDV IV SCH (05:17)
[2018-03-25] MEDS: LANSOPRAZOLE 30 MG TAB.RAP.DR PO SCH (05:17)
[2018-03-25] MEDS: HEPARIN SOD (PORCINE) 5,000 UNIT/ML 1 ML SYRINGE SUBCUT SCH ×3 (05:17→21:45)
[2018-03-25] MEDS: GABAPENTIN 300 MG CAPSULE PO SCH ×3 (05:17→21:45)
[2018-03-25] MEDS: IPRATROPIUM/ALBUTEROL 0.5-2.5 MG/3 ML AMPUL NEB SCH ×4 (08:29→19:38)
[2018-03-25] MEDS: FLUOXETINE HCL 20 MG CAPSULE PO SCH (09:12)
[2018-03-25] MEDS: BENZTROPINE MESYLATE 1 MG TABLET PO SCH (09:12)
[2018-03-25] MEDS: NICOTINE 21 MG/24 HR PATCH.TD24 TD SCH (09:13)
[2018-03-25] MEDS: METOPROLOL SUCCINATE 50 MG TAB.SR.24H PO SCH (09:13)
[2018-03-25] MEDS: CEFEPIME 1 GM/D5W RTU 1 GM/50 ML RTUPB IV SCH ×2 (09:14→21:44)
--- NOTE | 2018-03-25 13:22 | PDOC PROGRESS REPORT ---
Subjective Progress Note for:: 03/25/18 Subjective:: Patient is feeling much better Patient's denied any chest pain to than any shortness of the breath Patient's does not require any oxygen's Reason For Visit: COPD ACUTE Physical Exam Vital Signs: Temp Pulse Resp BP Pulse Ox 98.4 F 74 16 104/68 92 03/25/18 11:23 03/25/18 12:04 03/25/18 12:04 03/25/18 11:23 03/25/18 12:04 Intake & Output 03/24/18 03/25/18 03/26/18 06:59 06:59 06:59 Intake Total 1700 1992 50 Output Total 0 Balance 1700 1992 50 Weight 117.5 kg 117.8 kg General appearance: PRESENT: no acute distress, well-developed, well-nourished Head exam: PRESENT: atraumatic, normocephalic Eye exam: PRESENT: conjunctiva pink, EOMI, PERRLA. ABSENT: scleral icterus Ear exam: PRESENT: normal external ear exam Mouth exam: PRESENT: moist, tongue midline Neck exam: PRESENT: full ROM. ABSENT: carotid bruit, JVD, lymphadenopathy, thyromegaly Respiratory exam: PRESENT: clear to auscultation wan Cardiovascular exam: PRESENT: RRR. ABSENT: diastolic murmur, rubs, systolic murmur Vascular exam: PRESENT: normal capillary refill GI/Abdominal exam: PRESENT: normal bowel sounds, soft. ABSENT: distended, guarding, mass, organolmegaly, rebound, tenderness Rectal exam: PRESENT: deferred Neurological exam: PRESENT: alert, awake, oriented to person, oriented to place, oriented to time, oriented to situation, CN II-XII grossly intact. ABSENT: motor sensory deficit Psychiatric exam: PRESENT: appropriate affect, normal mood. ABSENT: homicidal ideation, suicidal ideation Skin exam: PRESENT: dry, intact, warm. ABSENT: cyanosis, rash Results Laboratory Results: 03/25/18 04:41 03/23/18 05:08 03/25/18 03/25/18 04:41 04:41 WBC 11.1 H RBC 5.20 Hgb 14.5 Hct 42.6 MCV 82 MCH 27.8 MCHC 34.0 RDW 14.9 H Plt Count 235 Seg Neutrophils % 83.3 H Lymphocytes % 9.1 L Monocytes % 7.4 Eosinophils % 0.0 Basophils % 0.2 Absolute Neutrophils 9.2 H Absolute Lymphocytes 1.0 Absolute Monocytes 0.8 Absolute Eosinophils 0.0 Absolute Basophils 0.0 Magnesium 2.3 03/22/18 12:51 Clean Catch Midstream Urine Culture - Final NO GROWTH 2 DAYS Impressions: Chest X-Ray 03/21/18 23:10 IMPRESSION: No acute cardiopulmonary findings. Head CT 03/21/18 23:13 IMPRESSION: No acute finding. TECHNICAL DOCUMENTATION: Quality ID # 436: Final reports with documentation of one or more dose reduction techniques (e.g., Automated exposure control, adjustment of the mA and/or kV according to patient size, use of iterative reconstruction technique) copyright 2011 [employer]- All Rights Reserved Chest CT 03/22/18 00:00 IMPRESSION: NO SIGNIFICANT FINDING ON NON-CONTRASTED CHEST CT. Assessment & Plan - Diagnosis (1) Altered mental status Qualifiers: Altered mental status type: unspecified Qualified Code(s): R41.82 - Altered mental status, unspecified Is this a current diagnosis for this admission?: Yes Plan: Patient is currently on a back to the baseline patient CT head was negative (2) COPD exacerbation Is this a current diagnosis for this admission?: Yes Plan: Will DC the IV Solu-Medrol (3) Anxiety and depression Is this a current diagnosis for this admission?: Yes Plan: Clear all stable (4) BPH (benign prostatic hypertrophy) Qualifiers: Lower urinary tract symptom presence: symptoms present Is this a current diagnosis for this admission?: Yes Plan: on the Flomax (5) Bipolar disorder Qualifiers: Active/Remission status: currently active Is this a current diagnosis for this admission?: Yes Plan: Continues to current medication (6) Chronic back pain Qualifiers: Back pain location: low back pain Is this a current diagnosis for this admission?: Yes Plan: Is currently getting the pain medications per the pain management (7) Chronic pain syndrome Is this a current diagnosis for this admission?: Yes (8) Deep vein thrombosis of right upper extremity Qualifiers: Chronicity: unspecified Is this a current diagnosis for this admission?: No (9) Hypertension Qualifiers: Hypertension type: essential hypertension Is this a current diagnosis for this admission?: Yes (10) Smoker Is this a current diagnosis for this admission?: Yes (11) Noncompliance Is this a current diagnosis for this admission?: Yes - Time Time Spent with patient: 15-24 minutes Medications reviewed and adjusted accordingly: Yes Anticipated discharge: Home with Homehealth Within: within 24 hours - Plan Summary Plan Summary: We will start the patient on a p.o. steroid get the physical therapy evaluations
[2018-03-25] MEDS: PREDNISONE 10 MG TABLET PO SCH (17:32)
[2018-03-25] MEDS: ATORVASTATIN CALCIUM 10 MG TABLET PO SCH (21:44)
[2018-03-25] MEDS: BACLOFEN 10 MG TABLET PO SCH (21:45)
[2018-03-26] MEDS: LANSOPRAZOLE 30 MG TAB.RAP.DR PO SCH (05:11)
[2018-03-26] MEDS: HEPARIN SOD (PORCINE) 5,000 UNIT/ML 1 ML SYRINGE SUBCUT SCH (05:11)
[2018-03-26] MEDS: GABAPENTIN 300 MG CAPSULE PO SCH (05:11)
[2018-03-26] MEDS: OXYCODONE HCL IR 5 MG TABLET PO PRN (05:11)
[2018-03-26] MEDS: ACETAMINOPHEN 325 MG TABLET PO PRN (08:01)
[2018-03-26] MEDS: IPRATROPIUM/ALBUTEROL 0.5-2.5 MG/3 ML AMPUL NEB SCH (08:09)
[2018-03-26] MEDS: FLUOXETINE HCL 20 MG CAPSULE PO SCH (09:40)
[2018-03-26] MEDS: NICOTINE 21 MG/24 HR PATCH.TD24 TD SCH (09:41)
[2018-03-26] MEDS: BACLOFEN 10 MG TABLET PO SCH (09:41)
[2018-03-26] MEDS: BENZTROPINE MESYLATE 1 MG TABLET PO SCH (09:41)
[2018-03-26] MEDS: PREDNISONE 10 MG TABLET PO SCH (09:41)
[2018-03-26] MEDS: METOPROLOL SUCCINATE 50 MG TAB.SR.24H PO SCH (09:41)
[2018-03-26] MEDS: CEFEPIME 1 GM/D5W RTU 1 GM/50 ML RTUPB IV SCH (09:43)
[2018-03-26 09:50] VITALS: BP 129/85
--- NOTE | 2018-03-26 13:20 | PDOC DISCHARGE SUMMARY ---
General - Admit/Disc Date/PCP Admission Date/Primary Care Provider: 03/22/18 02:54 KAY BRUSH MD Discharge Date: 03/26/18 - Discharge Diagnosis (1) Altered mental status Is this a current diagnosis for this admission?: Yes Summary: Currently all resolved (2) COPD exacerbation Is this a current diagnosis for this admission?: Yes Summary: Currently all resolved (3) Anxiety and depression Is this a current diagnosis for this admission?: Yes Summary: Currently stable patient also see a psych (4) BPH (benign prostatic hypertrophy) Is this a current diagnosis for this admission?: Yes Summary: Continues the Flomax (5) Bipolar disorder Is this a current diagnosis for this admission?: Yes Summary: Currently all stable or may be a full (6) Chronic back pain Is this a current diagnosis for this admission?: Yes Summary: pain mx a current medications (7) Chronic pain syndrome Is this a current diagnosis for this admission?: Yes (8) Deep vein thrombosis of right upper extremity Is this a current diagnosis for this admission?: No (9) Hypertension Is this a current diagnosis for this admission?: Yes Summary: All stable (10) Smoker Is this a current diagnosis for this admission?: Yes Summary: This with the patient about smoking counseling (11) Noncompliance Is this a current diagnosis for this admission?: Yes - Additional Information Discharge Diet: Regular Discharge Activity: Activity As Tolerated Prescriptions: Cefdinir [Omnicef 300 mg Capsule] 1 cap PO BID #10 capsule Fluticasone/Salmeterol [Advair 250-50 Diskus 14 Dose/Diskus] 1 inh IH Q12H #1 inhaler Prednisone [Deltasone 10 mg Tablet] 10 mg PO DAILY #5 tablet Home Medications: Atorvastatin Calcium [Lipitor 10 mg Tablet] 10 mg PO QHS 03/22/18 Baclofen [Baclofen 10 mg Tablet] 1 tab PO QID 03/22/18 Benztropine Mesylate [Benztropine Mesylate 2 mg Tablet] 2 mg PO BID 03/22/18 Buspirone HCl [Buspar 15 mg Tablet] 1 tab PO TID 03/22/18 Esomeprazole Magnesium 40 mg PO DAILY 03/22/18 Fenofibrate Nanocrystallized [Tricor 145 mg Tablet] 145 mg PO QHS 03/22/18 Fluoxetine HCl 80 mg PO DAILY 03/22/18 Gabapentin [Neurontin 300 mg Capsule] 300 mg PO Q8 03/22/18 Haloperidol 10 mg PO QHS 03/22/18 Hydroxyzine HCl [Atarax 25 mg Tablet] 1 tab PO Q8HP PRN 03/22/18 Metoprolol Succinate [Toprol Xl] 50 mg PO DAILY 03/22/18 Oxycodone HCl 15 mg PO QID 03/22/18 Ropinirole HCl [Requip] 1 mg PO QHS 03/22/18 Tamsulosin HCl [Flomax 0.4 mg Cap.sr] 0.4 mg PO DAILY 03/22/18 Tizanidine HCl [Zanaflex 4 mg Tablet] 4 mg PO TIDP PRN 03/22/18 Trazodone HCl [Desyrel 50 mg Tablet] 50 mg PO QHS 03/22/18 Triamcinolone Acetonide [Aristocort 0.1% Ointment] 1 applic TP BID 03/22/18 Cefdinir [Omnicef 300 mg Capsule] 1 cap PO BID #10 capsule 03/26/18 Fluticasone/Salmeterol [Advair 250-50 Diskus 14 Dose/Diskus] 1 inh IH Q12H #1 inhaler 03/26/18 Prednisone [Deltasone 10 mg Tablet] 10 mg PO DAILY #5 tablet 03/26/18 History of Present Illness History of Present Illness: DONALD GARRIDO is a 43 year old male This is a 43-year-old male with a significant history of the COPD chronic smoker chronic pain syndrome currently see a pain management bipolar disorder currently see a psychiatrist and a top of that is a very [facility] the [facility] of shortness of the breath and altered mental status Emergency department initial workup was all negative including the CT of the head was negative except patients have a COPD with acute exacerbations When I saw the patient's in the floor patient is doing better patients have ongoing pain issue Patient is pretty much alert awake oriented answering all questions very appropriately Patient's denied any chest pain to than any shortness of the breath Patient have a history of the DVT in upper extremity was finished Xarelto currently no sign of any DVT or PE Initially patient was put on the BiPAP currently on a nasal cannula Hospital Course Hospital Course: This is a 43-year-old male with a noncompliance chronic smoker multiple psych issue with the chronic pain syndrome COPD came with the shortness of the breath and altered mental status Patient admitting in the hospital with IV Solu-Medrol IV antibiotic Patient's response very well with the medications Patient off the oxygen's Patient is walking the hallway without any problems Patient's discharge with the p.o. antibiotic and p.o. steroids Also given nicotine patch Patient was psych consult was done and suggest follow with the psych Patient also see a pain management Physical Exam Vital Signs: Temp Pulse Resp BP Pulse Ox 98.3 F 64 16 129/85 H 93 03/26/18 09:01 03/26/18 09:01 03/26/18 09:01 03/26/18 09:01 03/26/18 09:01 Intake & Output 03/25/18 03/26/18 03/27/18 06:59 06:59 06:59 Intake Total 1992 2544 Output Total 0 Balance 1992 2544 Weight 117.8 kg 114.6 kg General appearance: PRESENT: no acute distress, well-developed, well-nourished Head exam: PRESENT: atraumatic, normocephalic Eye exam: PRESENT: conjunctiva pink, EOMI, PERRLA. ABSENT: scleral icterus Ear exam: PRESENT: normal external ear exam Mouth exam: PRESENT: moist, tongue midline Neck exam: PRESENT: full ROM. ABSENT: carotid bruit, JVD, lymphadenopathy, thyromegaly Respiratory exam: PRESENT: clear to auscultation wan Cardiovascular exam: PRESENT: RRR. ABSENT: diastolic murmur, rubs, systolic murmur Vascular exam: PRESENT: normal capillary refill GI/Abdominal exam: PRESENT: normal bowel sounds, soft. ABSENT: distended, guarding, mass, organolmegaly, rebound, tenderness Rectal exam: PRESENT: deferred Musculoskeletal exam: PRESENT: ambulatory Neurological exam: PRESENT: alert, awake, oriented to person, oriented to place, oriented to time, oriented to situation, CN II-XII grossly intact. ABSENT: motor sensory deficit Psychiatric exam: PRESENT: appropriate affect, normal mood. ABSENT: homicidal ideation, suicidal ideation Skin exam: PRESENT: dry, intact, warm. ABSENT: cyanosis, rash Results Laboratory Results: 03/25/18 04:41 03/23/18 05:08 Impressions: Chest X-Ray 03/21/18 23:10 IMPRESSION: No acute cardiopulmonary findings. Head CT 03/21/18 23:13 IMPRESSION: No acute finding. TECHNICAL DOCUMENTATION: Quality ID # 436: Final reports with documentation of one or more dose reduction techniques (e.g., Automated exposure control, adjustment of the mA and/or kV according to patient size, use of iterative reconstruction technique) copyright 2011 [employer]- All Rights Reserved Chest CT 03/22/18 00:00 IMPRESSION: NO SIGNIFICANT FINDING ON NON-CONTRASTED CHEST CT. Qualifiers - * PATIENT BEING DISCHARGED WITH ANY OF THE FOLLOWING DIAGNOSIS: No VTE patient discharged on overlapping Therapy?: Yes Plan Time Spent: Greater than 30 Minutes - Follow in office in 1 week Smoking counseling Follow with the psych and the pain management
--- NOTE | 2018-03-28 16:54 | PDOC CONSULTATION ---
Consultation Consult Date: 03/23/18 Attending physician:: KAY BRUSH Consult reason:: Dyspnea History of Present Illness Admission Date/PCP: 03/22/18 02:54 KAY BRUSH MD History of Present Illness: DONALD GARRIDO is a 43 year old male; well known to [facility] for end-stage COPD patient apparently smokes right up until the time of admission he presented with increasing shortness of breath over the last 2 days as well as all mental status and he was subsequently admitted on BiPAP with intense nebulizer therapy at this time his mental status has improved he complains of cough of clear phlegm no fevers or chills he denies hemoptysis his PPD status was negative the dates unknown he has no history of chronic lung or adolescent he has a approximately a [id number] history of smoking and apparently smoked as recently as the day of admission Past Medical History Cardiac Medical History: Reports: Hyperlipidema, Hypertension Denies: Coronary Artery Disease, Myocardial Infarction Pulmonary Medical History: Reports: Chronic Obstructive Pulmonary Disease (COPD) Denies: Asthma, Bronchitis, Pneumonia Neurological Medical History: Denies: Seizures GI Medical History: Reports: Gastroesophageal Reflux Disease Musculoskeltal Medical History: Denies: Arthritis Psychiatric Medical History: Reports: Bipolar Disorder, Depression Hematology: Denies: Anemia Infectious Medical History: Reports: Methicillin-Resistant Staph Aureus Past Surgical History Past Surgical History: Reports: Cholecystectomy, Orthopedic Surgery - 9 back surgeries, with lower abdominal midline incision. Social History Information Source: Patient, [facility] Records Smoking Status: Current Every Day Smoker Cigarettes Packs Per Day: 1 Frequency of Alcohol Use: Social Hx Recreational Drug Use: No Drugs: None Hx Prescription Drug Abuse: Yes Do you have pets?: No Have you had any respiratory illnesses as a child?: No Have you been exposed to any sick contacts recently?: No Have you had any recent respiratory illnesses?: Yes Have you travelled outside of [place] in the past 12 months?: No Family History Family History: Hypertension Parental Family History Reviewed: Yes Children Family History Reviewed: Yes Sibling(s) Family History Reviewed.: Yes Medication/Allergy Home Medications: Atorvastatin Calcium [Lipitor 10 mg Tablet] 10 mg PO QHS 03/22/18 Baclofen [Baclofen 10 mg Tablet] 1 tab PO QID 03/22/18 Benztropine Mesylate [Benztropine Mesylate 2 mg Tablet] 2 mg PO BID 03/22/18 Buspirone HCl [Buspar 15 mg Tablet] 1 tab PO TID 03/22/18 Esomeprazole Magnesium 40 mg PO DAILY 03/22/18 Fenofibrate Nanocrystallized [Tricor 145 mg Tablet] 145 mg PO QHS 03/22/18 Fluoxetine HCl 80 mg PO DAILY 03/22/18 Gabapentin [Neurontin 300 mg Capsule] 300 mg PO Q8 03/22/18 Haloperidol 10 mg PO QHS 03/22/18 Hydroxyzine HCl [Atarax 25 mg Tablet] 1 tab PO Q8HP PRN 03/22/18 Metoprolol Succinate [Toprol Xl] 50 mg PO DAILY 03/22/18 Oxycodone HCl 15 mg PO QID 03/22/18 Ropinirole HCl [Requip] 1 mg PO QHS 03/22/18 Tamsulosin HCl [Flomax 0.4 mg Cap.sr] 0.4 mg PO DAILY 03/22/18 Tizanidine HCl [Zanaflex 4 mg Tablet] 4 mg PO TIDP PRN 03/22/18 Trazodone HCl [Desyrel 50 mg Tablet] 50 mg PO QHS 03/22/18 Triamcinolone Acetonide [Aristocort 0.1% Ointment] 1 applic TP BID 03/22/18 Cefdinir [Omnicef 300 mg Capsule] 1 cap PO BID #10 capsule 03/26/18 Fluticasone/Salmeterol [Advair 250-50 Diskus 14 Dose/Diskus] 1 inh IH Q12H #1 inhaler 03/26/18 Prednisone [Deltasone 10 mg Tablet] 10 mg PO DAILY #5 tablet 03/26/18 Allergies/Adverse Reactions: iodine [Iodine] Allergy (Intermediate, Verified 07/14/17 11:34) Blisters Shellfish * [Shellfish] Allergy (Intermediate, Verified 07/14/17 11:34) Blisters clonazepam [From Klonopin] Allergy (Verified 07/14/17 11:34) Blisters Review of Systems Constitutional: PRESENT: fatigue. ABSENT: headache(s), night sweats Eyes: ABSENT: visual disturbances Ears: ABSENT: hearing changes Nose, Mouth, and Throat: ABSENT: sore throat Cardiovascular: PRESENT: dyspnea on exertion, edema. ABSENT: palpitations Respiratory: PRESENT: cough, dyspnea. ABSENT: hemoptysis Gastrointestinal: ABSENT: abdominal pain, bloating, coffee ground emesis, dysphagia, hematemesis, hematochezia, melena, nausea Genitourinary: ABSENT: dysuria, hematuria Musculoskeletal: ABSENT: deformity Integumentary: ABSENT: pruritus, rash Neurological: ABSENT: abnormal gait, abnormal movements, abnormal speech, confusion, focal weakness, frequent falls, lack of coordination, memory loss, syncope, vertigo Psychiatric: ABSENT: hallucinations, homidical ideation, suicidal ideation Endocrine: ABSENT: cold intolerance, heat intolerance, polydipsia, polyuria Hematologic/Lymphatic: PRESENT: easy bruising Allergic/Immunologic: PRESENT: seasonal rhinorrhea Physical Exam Vital Signs: Temp Pulse Resp BP Pulse Ox 98.1 F 88 14 132/77 H 91 L 03/23/18 07:45 03/23/18 12:11 03/23/18 12:11 03/23/18 07:45 03/23/18 12:11 Intake & Output 03/22/18 03/23/18 03/24/18 06:59 06:59 06:59 Intake Total 0 961 Output Total 0 450 Balance 0 511 Weight 114 kg 117.2 kg General appearance: PRESENT: cooperative, disheveled, morbidly obese Head exam: PRESENT: atraumatic, normocephalic Eye exam: PRESENT: conjunctiva pale, EOMI. ABSENT: nystagmus Mouth exam: PRESENT: dry mucosa, neck supple, tongue midline Neck exam: ABSENT: carotid bruit, JVD, lymphadenopathy, thyromegaly, tracheal deviation, tracheostomy Respiratory exam: PRESENT: decreased breath sounds, prolonged expiratory phas, rhonchi, symmetrical, unlabored, wheezes. ABSENT: rales, retraction, stridor Cardiovascular exam: PRESENT: RRR, +S1, +S2 Pulses: PRESENT: normal radial pulses GI/Abdominal exam: PRESENT: soft. ABSENT: tenderness Gentrourinary exam: PRESENT: indwelling catheter Extremities exam: ABSENT: calf tenderness, clubbing, joint swelling Musculoskeletal exam: ABSENT: deformity, dislocation Neurological exam: PRESENT: awake Psychiatric exam: PRESENT: flat affect Skin exam: PRESENT: dry, warm Results Laboratory Results: 03/23/18 05:08 03/23/18 05:08 03/23/18 03/23/18 05:08 05:08 WBC 13.7 H RBC 4.94 Hgb 13.5 Hct 40.7 MCV 82 MCH 27.4 MCHC 33.3 RDW 14.8 H Plt Count 265 Seg Neutrophils % 88.4 H Lymphocytes % 7.2 L Monocytes % 3.8 Eosinophils % 0.0 Basophils % 0.6 Absolute Neutrophils 12.1 H Absolute Lymphocytes 1.0 Absolute Monocytes 0.5 Absolute Eosinophils 0.0 Absolute Basophils 0.1 Sodium 140.5 Potassium 4.8 Chloride 106 Carbon Dioxide 24 Anion Gap 11 BUN 19 Creatinine 0.83 Est GFR ( Amer) > 60 Est GFR (Non-Af Amer) > 60 Glucose 168 H Calcium 9.7 Magnesium 2.0 Total Bilirubin 0.3 AST 29 ALT 41 Alkaline Phosphatase 62 Total Protein 6.8 Albumin 4.2 Impressions: Chest X-Ray 03/21/18 23:10 IMPRESSION: No acute cardiopulmonary findings. Head CT 03/21/18 23:13 IMPRESSION: No acute finding. TECHNICAL DOCUMENTATION: Quality ID # [id number]: Final reports with documentation of one or more dose reduction techniques (e.g., Automated exposure control, adjustment of the mA and/or kV according to patient size, use of iterative reconstruction technique) copyright 2011 [employer]- All Rights Reserved Chest CT 03/22/18 00:00 IMPRESSION: NO SIGNIFICANT FINDING ON NON-CONTRASTED CHEST CT. Assessment & Plan - Diagnosis (1) GRACE (acute kidney injury) Is this a current diagnosis for this admission?: Yes Plan: ATN presumably had hypotensive. At the time of admission with altered mental status (2) Acute hypoxemic respiratory failure Is this a current diagnosis for this admission?: Yes Plan: Improving with oxygen and noninvasive positive pressure (3) Altered mental status Qualifiers: Altered mental status type: unspecified Qualified Code(s): R41.82 - Altered mental status, unspecified Is this a current diagnosis for this admission?: Yes Plan: Difficulty improved since the time of (4) COPD (chronic obstructive pulmonary disease) Qualifiers: COPD type: unspecified COPD Qualified Code(s): J44.9 - Chronic obstructive pulmonary disease, unspecified Is this a current diagnosis for this admission?: Yes Plan: Continue current bronchodilator therapy
== END 2018-03-26 10:20 | disposition home or self-care (01) | DRG 191 ==
LOC: ER 22:48 → EH 03-22 02:54 → 3S 03-22 04:32
PROVIDERS: ADMIT Family Medicine; ATTEND Family Medicine
DX: J44.1 Chronic obstructive pulmonary disease with (acute) exacerbation (principal); I82.621 Acute embolism and thrombosis of deep veins of right upper extremity; M54.9 Dorsalgia, unspecified; I10 Essential (primary) hypertension; G89.4 Chronic pain syndrome; Z91.19 Patient's noncompliance with other medical treatment and regimen; E78.5 Hyperlipidemia, unspecified; N40.1 Benign prostatic hyperplasia with lower urinary tract symptoms; K21.9 Gastro-esophageal reflux disease without esophagitis; G47.00 Insomnia, unspecified; F41.9 Anxiety disorder, unspecified; F32.9 Major depressive disorder, single episode, unspecified; F31.9 Bipolar disorder, unspecified; Z79.899 Other long term (current) drug therapy; Z90.49 Acquired absence of other specified parts of digestive tract; F17.210 Nicotine dependence, cigarettes, uncomplicated; Z91.013 Allergy to seafood; Z88.8 Allergy status to other drugs, medicaments and biological substances; Z86.14 Personal history of Methicillin resistant Staphylococcus aureus infection
CPT/HCPCS: 36415; 70450; 71045; 71250; 80053; 80307; 81001; 82803; 83735; 85025; 87040; 87086; 93005; 93010; 94640; 94660; 96374; 99285; J0692; J1644; J2920; J2930; J3490; J7512; J7620

== ENCOUNTER 2018-07-26 16:05 | Emergency (ER) | payer MEDICARE, MEDICAID ==
--- NOTE | 2018-07-26 16:42 | ER Document Report ---
ED Medical Screen (RME) - General Chief Complaint: Fall Stated Complaint: HEAD INJURY Time Seen by Provider: 07/26/18 16:34 Primary Care Provider: KAY BRUSH MD [Primary Care Provider] - Follow up as needed Mode of Arrival: Wheelchair Information source: Patient Notes: Patient presents complaining of dizziness that occurred at 930 this morning causing him to fall landing on his buttocks. Patient states he had a similar episode last week. Patient presents because he has thoracic and lumbar back pain after the fall. Patient does have a history of chronic back pain and multiple back surgeries. Patient denies any loss of consciousness nausea vomiting, chest pain or shortness of breath. I have greeted and performed a rapid initial assessment of this patient. A comprehensive ED assessment and evaluation of the patient, analysis of test results and completion of the medical decision making process will be conducted by additional ED providers. TRAVEL OUTSIDE OF THE [place] IN LAST 30 DAYS: No - Related Data Allergies/Adverse Reactions: iodine [Iodine] Allergy (Intermediate, Verified 07/14/17 11:34) Blisters Shellfish * [Shellfish] Allergy (Intermediate, Verified 07/14/17 11:34) Blisters clonazepam [From Klonopin] Allergy (Verified 07/14/17 11:34) Blisters Past Medical History - Social History Chew tobacco use (# tins/day): No Frequency of alcohol use: None Drug Abuse: None - Past Medical History Cardiac Medical History: Reports: Hx Hypercholesterolemia, Hx Hypertension Denies: Hx Coronary Artery Disease, Hx Heart Attack Pulmonary Medical History: Reports: Hx COPD Denies: Hx Asthma, Hx Bronchitis, Hx Pneumonia Neurological Medical History: Denies: Hx Cerebrovascular Accident, Hx Seizures Renal/ Medical History: Reports: Hx Renal Insufficiency. Denies: Hx Peritoneal Dialysis GI Medical History: Reports: Hx Gastroesophageal Reflux Disease Musculoskeltal Medical History: Denies Hx Arthritis, Reports Hx Musculoskeletal Deformity, Reports Hx Musculoskeletal Trauma Skin Medical History: Reports Hx Cellulitis, Reports Hx MRSA Psychiatric Medical History: Reports: Hx Bipolar Disorder, Hx Depression, Hx Schizophrenia Infectious Medical History: Reports: Hx MRSA Past Surgical History: Reports: Hx Cholecystectomy, Hx Oral Surgery, Hx Orthopedic Surgery - 9 back surgeries, with lower abdominal midline incision. - Immunizations Hx Diphtheria, Pertussis, Tetanus Vaccination: Yes Physical Exam - Vital signs Vitals: Temp Pulse Resp BP Pulse Ox 98.7 F 74 16 167/92 H 93 07/26/18 16:27 07/26/18 16:27 07/26/18 16:27 07/26/18 16:27 07/26/18 16:27 - Back Back: Vertebra tenderness - Midline thoracic and lumbar tenderness, scars from previous surgery to the lumbar spine Course - Vital Signs Vital signs: Temp Pulse Resp BP Pulse Ox 98.7 F 74 16 167/92 H 93 07/26/18 16:27 07/26/18 16:27 07/26/18 16:27 07/26/18 16:27 07/26/18 16:27 Doctor's Discharge - Discharge Referrals: KAY BRUSH MD [Primary Care Provider] - Follow up as needed
[2018-07-26 17:34] LABS: ABSOLUTE BASOPHILS # (AUTO) 0.1 10^3/uL (0.0-0.2); ABSOLUTE MONOCYTES (AUTO) 0.5 10^3/uL (0.1-1.4); ABSOLUTE NEUT (AUTO) 11.7 10^3/uL (1.7-8.2); BASOPHILS % (AUTO) 0.6 % (0-2); EOSINOPHILS % (AUTO) 0.1 % (0-6); HEMATOCRIT 46.8 % (37.9-51.0); HEMOGLOBIN 16.1 g/dL (13.5-17.0); LYMPHOCYTES % (AUTO) 7.6 % (13-45); MEAN CORPUSCULAR HEMOGLOBIN 28.1 pg (27.0-33.4); MEAN CORPUSCULAR HGB CONC 34.4 g/dL (32.0-36.0); MEAN CORPUSCULAR VOLUME 82 fl (80-97); MONOCYTES % (AUTO) 3.6 % (3-13); PLATELET COUNT 251 10^3/uL (150-450); RED BLOOD COUNT 5.72 10^6/uL (4.35-5.55); RED CELL DISTRIBUTION WIDTH 14.7 % (11.5-14.0); SEGMENTED NEUTROPHILS % (AUTO) 88.1 % (42-78); TOTAL CELLS COUNTED % (AUTO) 100 %; WHITE BLOOD COUNT 13.3 10^3/uL (4.0-10.5)
[2018-07-26 18:06] LABS: ALANINE AMINOTRANSFERASE 43 U/L (21-72); ALBUMIN 4.7 g/dL (3.5-5.0); ALKALINE PHOSPHATASE 78 U/L (38-126); ANION GAP 9 (5-19); ASPARTATE AMINO TRANSFERASE 42 U/L (17-59); BILIRUBIN,DIRECT 0.3 mg/dL (0.0-0.4); BILIRUBIN,TOTAL 0.5 mg/dL (0.2-1.3); BLOOD UREA NITROGEN 11 mg/dL (7-20); CALCIUM 9.5 mg/dL (8.4-10.2); CARBON DIOXIDE 24 mmol/L (22-30); CHLORIDE 108 mmol/L (98-107); GLUCOSE 135 mg/dL (75-110); POTASSIUM 4.2 mmol/L (3.6-5.0); SODIUM 141.4 mmol/L (137-145); TOTAL PROTEIN 8.1 g/dL (6.3-8.2)
--- NOTE | 2018-07-26 18:15 | RADIOLOGY REPORT (SQ) ---
EXAM DESCRIPTION: CHEST 2 VIEWS COMPLETED DATE/TIME: 07/26/2018 6:03 pm REASON FOR STUDY: dizziness COMPARISON: 03/21/2018 TECHNIQUE: Single frontal radiographic view of the chest acquired. NUMBER OF VIEWS: One view. LIMITATIONS: None. FINDINGS: LUNGS AND PLEURA: No pneumothorax. No consolidation or pleural effusion. MEDIASTINUM AND HILAR STRUCTURES: Stable. HEART AND VASCULAR STRUCTURES: Stable. BONES: No acute findings. HARDWARE: None in the chest. OTHER: No other significant finding. IMPRESSION: NO ACUTE FINDINGS. TECHNICAL DOCUMENTATION: JOB ID: [id number] [place]-72 2010 [employer]- All Rights Reserved Reading location - IP/workstation name: [email or web address]
--- NOTE | 2018-07-26 18:23 | RADIOLOGY REPORT (SQ) ---
EXAM DESCRIPTION: T SPINE AP/LAT COMPLETED DATE/TIME: 07/26/2018 6:03 pm REASON FOR STUDY: fall, back pain COMPARISON: 07/24/2017 NUMBER OF VIEWS: Two views. TECHNIQUE: AP and lateral radiographic images acquired of the thoracic spine. LIMITATIONS: None. FINDINGS: MINERALIZATION: Normal. ALIGNMENT: Normal. No scoliosis. VERTEBRAE: Mild compression of the L1 vertebral body which appears new compared with the 07/24/2017 ch est radiograph. Likely slightly increased T12 compression. DISCS: Multilevel disc space narrowing with osteophytes. HARDWARE: None in the spine. MEDIASTINUM AND SOFT TISSUES: Normal heart size and aortic contour. No soft tissue abnormality. VISUALIZED LUNG HAWKINS: Clear. OTHER: No other significant finding. IMPRESSION: Mild compression of the L1 vertebral body which appears new compared with the 07/24/2017 chest radiograph. Likely slightly increased T12 compression. TECHNICAL DOCUMENTATION: JOB ID: [id number] [place]-72 2010 [employer]- All Rights Reserved Reading location - IP/workstation name: [email or web address]
--- NOTE | 2018-07-26 18:25 | RADIOLOGY REPORT (SQ) ---
EXAM DESCRIPTION: L SPINE WHOLE COMPLETED DATE/TIME: 07/26/2018 6:03 pm REASON FOR STUDY: fall, back pain COMPARISON: 03/19/2014 NUMBER OF VIEWS: Five views including obliques. TECHNIQUE: AP, lateral, oblique, and sacral radiographic images acquired of the lumbar spine. LIMITATIONS: None. FINDINGS: MINERALIZATION: Normal. SEGMENTATION: Normal. No transitional anatomy. ALIGNMENT: Normal. VERTEBRAE: Mild compression of the T12 and L1 vertebral bodies. DISCS: Multilevel disc space narrowing with osteophytes. POSTERIOR ELEMENTS: Pedicles and facets are intact. No pars defect or posterior arch defects. Facet arthropathy is present. HARDWARE: Similar hardware at the L4 through S1 levels, stable appearing with a fractured upper anter ior sacral screw similar to the 2015 exam. PARASPINAL SOFT TISSUES: Normal. PELVIS: Intact as visualized. No fractures or worrisome bone lesions. SI joints intact. OTHER: No other significant finding. IMPRESSION: Mild compression of the T12 and L1 vertebral bodies. COMMENT: Consider CT to further assess for acute fracture. TECHNICAL DOCUMENTATION: JOB ID: [id number] [place]-72 2010 [employer]- All Rights Reserved Reading location - IP/workstation name: [email or web address]
--- NOTE | 2018-07-26 19:15 | EKG REPORT ---
SEVERITY:- OTHERWISE NORMAL ECG - SINUS RHYTHM LEFT AXIS DEVIATION : Confirmed by: Irene Lopez MD 26-Jul-2018 19:14:08
[2018-07-26] MEDS ORDERED: DEXAMETHASONE SOD PHOS INJ 10 MG/1 ML VIAL IM ONE (21:02)
[2018-07-26] MEDS ORDERED: KETOROLAC TROMETHAMINE 60 MG/2 ML SDV IM ONE (21:02)
--- NOTE | 2018-07-26 21:07 | ER Document Report ---
ED Fall - General Chief Complaint: Fall Stated Complaint: HEAD INJURY Time Seen by Provider: 07/26/18 16:34 Primary Care Provider: KAY BRUSH MD [Primary Care Provider] - Follow up in 3-5 days Mode of Arrival: Wheelchair Information source: Patient Notes: Patient is a 43-year-old male who presents the emergency department with a chief complaint of back pain. He states he got dizzy and fell. He did not lose consciousness. He has chronic back pain and he fell at 930 this morning. He describes the pain is an aching pain. He is able to walk, but continues to have pain. His pain is in his mid to lower back. He is currently on oxycodone for pain and he took his pain medication. He does not take any NSAIDs to help with his pain. He has a past medical history of GERD, hypertension, upper lipidemia, anxiety, and chronic pain. He states he took some ibuprofen last week and had some relief of his chronic pain. TRAVEL OUTSIDE OF THE [place] IN LAST 30 DAYS: No - Related data Allergies/Adverse Reactions: iodine [Iodine] Allergy (Intermediate, Verified 07/14/17 11:34) Blisters Shellfish * [Shellfish] Allergy (Intermediate, Verified 07/14/17 11:34) Blisters clonazepam [From Klonopin] Allergy (Verified 07/14/17 11:34) Blisters Past Medical History - General Information source: Patient - Social History Smoking Status: Current Every Day Smoker Chew tobacco use (# tins/day): No Frequency of alcohol use: None Drug Abuse: None Family History: Hypertension Patient has suicidal ideation: No Patient has homicidal ideation: No - Past Medical History Cardiac Medical History: Reports: Hx Hypercholesterolemia, Hx Hypertension Denies: Hx Coronary Artery Disease, Hx Heart Attack Pulmonary Medical History: Reports: Hx COPD Denies: Hx Asthma, Hx Bronchitis, Hx Pneumonia Neurological Medical History: Denies: Hx Cerebrovascular Accident, Hx Seizures Renal/ Medical History: Reports: Hx Renal Insufficiency. Denies: Hx Peritoneal Dialysis GI Medical History: Reports: Hx Gastroesophageal Reflux Disease Musculoskeletal Medical History: Denies Hx Arthritis, Reports Hx Musculoskeletal Deformity, Reports Hx Musculoskeletal Trauma Skin Medical History: Reports Hx Cellulitis, Reports Hx MRSA Psychiatric Medical History: Reports: Hx Bipolar Disorder, Hx Depression, Hx Schizophrenia Infectious Medical History: Reports: Hx MRSA Past Surgical History: Reports: Hx Cholecystectomy, Hx Oral Surgery, Hx Orthopedic Surgery - 9 back surgeries, with lower abdominal midline incision. - Immunizations Hx Diphtheria, Pertussis, Tetanus Vaccination: Yes Hx Pneumococcal Vaccination: 02/06/00 Review of Systems - Review of Systems Notes: REVIEW OF SYSTEMS: CONSTITUTIONAL : Denies recent illness. Denies recent unintentional weight loss. Denies fever, chills, or sweats. EENT: Denies eye, ear, throat, or mouth pain, discharge, or symptoms. Denies nasal or sinus congestion. CARDIOVASCULAR: Denies chest pain. RESPIRATORY: Denies shortness of breath, cough, congestion, difficulty breathing, or wheezing. GASTROINTESTINAL: Denies nausea, vomiting, and diarrhea. Denies abdominal pain. Denies constipation. GENITOURINARY: Denies difficulty urinating, burning, blood in urine, urgency or frequency. MUSCULOSKELETAL: See HPI. SKIN: Denies rash, itchiness, or lesions HEMATOLOGIC : Denies easy bruising or bleeding. LYMPHATIC: Denies swollen, painful, enlarged glands. NEUROLOGICAL: Denies no numbness or tingling denies weakness. Denies headache. Denies altered mental status. Denies alteration in speech. PSYCHIATRIC: Denies stress, anxiety, alteration in sleep patterns, or depression. All other systems reviewed and negative. Physical Exam - Vital signs Vitals: Temp Pulse Resp BP Pulse Ox 98.7 F 74 16 167/92 H 93 07/26/18 16:27 07/26/18 16:27 07/26/18 16:27 07/26/18 16:27 07/26/18 16:27 - Notes Notes: PHYSICAL EXAMINATION: GENERAL: Appears well, healthy, well-nourished, no acute distress. HEAD: Normocephalic, atraumatic. EYES: PERRL, conjunctiva normal, all extraocular movements intact, sclera nonicteric ENT: Moist mucous membranes. NECK: Supple, no noticeable swelling, redness, rash. Normal range of motion. LUNGS: Equal breath sounds bilaterally and clear to auscultation. No wheezes rales or rhonchi. CARDIOVASCULAR: S1-S2, regular rate, regular rhythm. Radial pulses 2+, normal. ABDOMEN: Normoactive bowel sounds. Soft, nontender, no guarding, no rebound tenderness, and no masses palpated. EXTREMITIES: Normal strength and range of motion, no pitting or edema. No cyanosis. NEUROLOGICAL: Moves all extremities upon command. Strength 5/5 in all ext remities. PSYCH: Normal mood, normal affect. SKIN: Warm, dry. No rash, lesions, ulcerations noted. Normal skin turgor. Course - Re-evaluation Re-evalutation: 07/26/18 22:00 Patient does have a mild leukocytosis, will order a urinalysis to rule out a urinary tract infection. His chemistries are unremarkable. His first troponin is negative. 07/27/18 00:00 Patient's orthostatic vital signs show a drop. His oxygen saturation is what dropped significantly, but the patient has COPD. I have advised him to get up slowly and do not get up too quickly. I will also have marked the unit to see if his oxygen saturation stays low. If not, he will be discharged home. 07/27/18 01:00 Patient was walked around the unit and his oxygen saturation dropped to 87, but sustained. He is a COPD patient and he still continues to smoke. I have advised him that smoking does not help with his oxygen duration, and could be contributing to his dizziness. Patient's urinalysis, is normal. Second troponin is negative. He states he feels better after receiving morphine. At this time, he is stable for discharge. Follow-up precautions were given. Verbal discharge instructions were given to the patient. They verbalized understanding. They are stable for discharge. - Vital Signs Vital signs: Temp Pulse Resp BP Pulse Ox 98.7 F 78 17 117/76 90 L 07/26/18 16:27 07/26/18 21:55 07/27/18 01:36 07/27/18 01:36 07/27/18 01:36 - Laboratory Result Diagrams: 07/26/18 17:10 07/26/18 17:10 Laboratory results interpreted by me: 07/26/18 07/26/18 17:10 17:10 WBC 13.3 H RBC 5.72 H RDW 14.7 H Seg Neutrophils % 88.1 H Lymphocytes % 7.6 L Absolute Neutrophils 11.7 H Chloride 108 H Glucose 135 H Discharge - Discharge Clinical Impression: Fall Qualifiers: Encounter type: initial encounter Qualified Code(s): W19.XXXA - Unspecified fall, initial encounter Back pain Qualifiers: Back pain location: low back pain Chronicity: acute Back pain laterality: bilateral Sciatica presence: without sciatica Qualified Code(s): M54.5 - Low back pain Condition: Stable Disposition: HOME, SELF-CARE Additional Instructions: You were seen today in the emergency department after a fall. You have back pain from the fall. Please continue to take your already prescribed pain medication for your back pain. Please follow-up with your primary care provider in regards to this visit. You can add ibuprofen 600 mg every 6 hours as needed for your pain. You can also add Tylenol 1000 mill grams every 6 hours for your pain. You may need physical therapy to help strengthen your back muscles. If you lose bladder or bowel function, are unable to move, or have any symptoms that are worrisome to you, please return to the emergency department. Referrals: KAY BRUSH MD [Primary Care Provider] - Follow up in 3-5 days
[2018-07-26] MEDS ORDERED: MORPHINE SULFATE 10 MG/ML INJ IM ONE (23:02)
[2018-07-26 23:29] LABS: APPEARANCE,URINE CLEAR; BILIRUBIN,URINE NEGATIVE (NEGATIVE); COLOR,URINE YELLOW; GLUCOSE, URINE NEGATIVE (NEGATIVE); KETONES,URINE NEGATIVE (NEGATIVE); LEUKOCYTE ESTERASE,URINE NEGATIVE (NEGATIVE); NITRITE,URINE NEGATIVE (NEGATIVE); PROTEIN,URINE NEGATIVE (NEGATIVE); URINE SPECIFIC GRAVITY 1.024; UROBILINOGEN,URINE NEGATIVE mg/dL (<2.0)
[2018-07-27 01:38] VITALS: BP 117/76
== END 2018-07-27 01:43 | disposition home or self-care (01) ==
LOC: ER 16:05
DX: M54.5 Low back pain (principal); W19.XXXA Unspecified fall, initial encounter; Y93.89 Activity, other specified; G89.29 Other chronic pain; Z79.891 Long term (current) use of opiate analgesic; J44.9 Chronic obstructive pulmonary disease, unspecified; R42 Dizziness and giddiness; D72.829 Elevated white blood cell count, unspecified; I10 Essential (primary) hypertension; F17.200 Nicotine dependence, unspecified, uncomplicated; Z98.890 Other specified postprocedural states; Z91.013 Allergy to seafood; Z88.8 Allergy status to other drugs, medicaments and biological substances
CPT/HCPCS: 93005; 99284; 96372; 36415; 80053; 81001; 84484; 71046; 72110; 72070; 93010; 85025; J1885; J2270; J1100

== ENCOUNTER → 2018-09-10 | Outpatient (CLI) | payer MEDICARE, MEDICAID ==
--- NOTE | 2018-09-10 12:07 | RADIOLOGY REPORT (SQ) ---
EXAM DESCRIPTION: MRI LUMBAR SPINE COMBO COMPLETED DATE/TIME: 09/10/2018 10:19 am REASON FOR STUDY: M54.16 RADICULOPATHY, LUMBAR REGION M54.16 RADICULOPATHY, LUMBAR REGION COMPARISON: CT abdomen pelvis 05/28/2016 Lumbar spine plain films 07/26/2018 TECHNIQUE: Sagittal and Axial imaging includes T1, T1 post gadolinium, T2, STIR and gradient echo se quences. Coronal T2/HASTE imaging. CONTRAST TYPE AND DOSE: 20 mL Dotarem. RENAL FUNCTION: Not indicated. ACR Type II contrast agent associated with few, if any, unconfounded cases of NSF LIMITATIONS: None. FINDINGS: VISUALIZED UPPER ABDOMEN: Limited evaluation. No acute or suspicious findings suggested. SEGMENTATION: No transitional anatomy. The lowest well-developed disc space is labeled L5-S1. ALIGNMENT: Anatomic. VERTEBRAE and BONE MARROW: Subacute 25% upper endplate compression deformity at L1, with marrow edema paralleling the upper endplate. No significant retropulsion of bony fragments into the spinal canal . Mild contrast enhancement post gadolinium. This is likely a subacute osteoporotic compression def ormity which could be amenable to kyphoplasty for pain management. There is a chronic appearing 25% upper endplate compression at T12, without marrow edema. This was p resent on prior CT exam 05/28/2016. DISC SIGNAL: Fusion at L4-5 and L5-S1. Disc spaces are otherwise unremarkable POSTERIOR ELEMENTS: Old bilateral laminectomy at L4, old left laminectomy at L5 HARDWARE: None in the spine. CORD AND CONUS: Normal in size and signal intensity. Conus at the T12-L1 level. SOFT TISSUES: No aortic aneurysm seen. No bulky retroperitoneal adenopathy or mass. No paraspinal mas s or fluid. T11-12: At the upper edge of the field of view. There is mild bilateral facet arthropathy causing m ild bilateral foraminal narrowing. Borderline central canal narrowing. T12-L1: Mild posterior disc bulging and mild bilateral facet and ligament hypertrophy are present wi th mild bilateral foraminal narrowing. No central stenosis. L1-L2: Mild bilateral facet arthropathy. No central or foraminal stenosis L2-L3: Mild bilateral facet arthropathy. No central or foraminal stenosis L3-L4: Broad diffuse posterior disc bulging and bulky bilateral facet and ligament hypertrophy is pre sent. Small central annular tear. Mild central canal stenosis is present with partial effacement of the CSF around the lumbar nerve roots best shown on axial T2 image 20. Elsewhere at L3-4 there is mild bilateral inferior foraminal narrowing without exiting L3 nerve root impingement. L4-L5: Prior bilateral laminectomy and fusion. Bilateral transpedicular screws are present with inco rporated disc spacer. No central canal stenosis. No significant right foraminal narrowing. Mild le ft foraminal narrowing without evidence of exit nerve root impingement. L5-S1: Old left laminectomy. Bilateral transpedicular screws. Anterior fixation hardware with disc spacer. No central or right foraminal narrowing. Mild left foraminal narrowing without exiting left L5 nerve root impingement. SACRUM: Visualized upper sacrum intact. ENHANCEMENT: No abnormal conus or nerve root enhancement. There is enhancement along a subacute uppe r endplate compression at L1 vertebral body OTHER: No other significant findings. IMPRESSION: Subacute upper endplate compression at the L1 level Durable lower lumbar fusion without significant stenosis of the fusion level. Mild central canal stenosis and mild bilateral foraminal narrowing at L3-4, above the level of fusion TECHNICAL DOCUMENTATION: JOB ID: [id number] [employer]- All Rights Reserved Reading location - IP/workstation name: [email or web address]
== END ==
LOC: RAD 09:00
PROVIDERS: ATTEND Anesthesiology Pain Medicine
DX: M54.16 Radiculopathy, lumbar region (principal); M48.061 Spinal stenosis, lumbar region without neurogenic claudication
CPT/HCPCS: 82565; 72158; A9576

== ENCOUNTER → 2018-09-23 | Outpatient (CLI) | payer MEDICARE, MEDICAID ==
--- NOTE | 2018-09-23 14:51 | WOMENS IMAGING REPORT ---
EXAM DESCRIPTION: BONE DENSITY HIP/SPINE COMPLETED DATE/TIME: 09/23/2018 2:40 pm REASON FOR STUDY: S32.010A WEDGE COMPRESSION FRACTURE OF 1ST LUMBAR VERT S32.010A WEDGE COMPRESSION FRACTURE OF FIRST LUMBAR VERTEBRA COMPARISON: None. TECHNIQUE: Dual-Energy X-ray Absorptiometry (DEXA) of the AP Spine and Hip. LIMITATIONS: None. FINDINGS: LUMBAR SPINE: The bone mineral density (BMD) measured from L1-L4 in the AP projection correlates with a T-score of -0.1, which is normal as defined by the World Health Organization. BMD Change vs Baseline: N/A HIP: The bone mineral density (BMD) measured in the left hip correlates with a T-score of -0.8 in the femo ral neck, which is normal as defined by the World Health Organization. BMD Change vs Baseline: N/A 10 year Fracture Risk Assessment: Major Osteoporotic Fracture: Not available. Hip Fracture: Not available. IMPRESSION: 1. LUMBAR SPINE WHO CLASSIFICATION: Normal 2. HIP WHO CLASSIFICATION: Normal OVERALL ASSESSMENT: WHO CLASSIFICATION: Normal COMMENT: The World Health Organization defines low BMD as follows: T-score: Normal: Greater than -1.0 Osteopenia: Between -1.0 and -2.5 Osteoporosis: Less than -2.5 without fractures Established osteoporosis: Less than -2.5 with fractures In general, you may wish to consider: Diagnosis Treatment Follow-up DEXA Normal BMD Prevention 2-3 years Osteopenia Prevention/Therapy 1-2 years Osteoporosis Therapy Yearly TECHNICAL DOCUMENTATION: JOB ID: [id number] [employer]- All Rights Reserved Reading location - IP/workstation name: [email or web address]
== END ==
LOC: WI 13:40
PROVIDERS: ATTEND Family Medicine
DX: S32.010A Wedge compression fracture of first lumbar vertebra, initial encounter for closed fracture (principal); X58.XXXA Exposure to other specified factors, initial encounter
CPT/HCPCS: 77080

== ENCOUNTER 2018-10-24 18:12 | Observation (INO) | payer MEDICARE, MEDICAID ==
[2018-10-24 18:36] LABS: ABSOLUTE EOSINOPHILS # (AUTO) 0.1 10^3/uL (0.0-0.6); ABSOLUTE LYMPHOCYTES (AUTO) 2.2 10^3/uL (0.5-4.7); ABSOLUTE MONOCYTES (AUTO) 0.6 10^3/uL (0.1-1.4); ABSOLUTE NEUT (AUTO) 4.4 10^3/uL (1.7-8.2); BASOPHILS % (AUTO) 0.4 % (0-2); EOSINOPHILS % (AUTO) 1.8 % (0-6); HEMATOCRIT 45.8 % (37.9-51.0); HEMOGLOBIN 15.4 g/dL (13.5-17.0); LYMPHOCYTES % (AUTO) 30.1 % (13-45); MEAN CORPUSCULAR HEMOGLOBIN 27.7 pg (27.0-33.4); MEAN CORPUSCULAR HGB CONC 33.5 g/dL (32.0-36.0); MEAN CORPUSCULAR VOLUME 83 fl (80-97); PLATELET COUNT 220 10^3/uL (150-450); RED BLOOD COUNT 5.55 10^6/uL (4.35-5.55); RED CELL DISTRIBUTION WIDTH 15.1 % (11.5-14.0); SEGMENTED NEUTROPHILS % (AUTO) 59.7 % (42-78); TOTAL CELLS COUNTED % (AUTO) 100 %; WHITE BLOOD COUNT 7.4 10^3/uL (4.0-10.5)
[2018-10-24 19:04] LABS: ALBUMIN 4.3 g/dL (3.5-5.0); ALKALINE PHOSPHATASE 82 U/L (38-126); ANION GAP 8 (5-19); ASPARTATE AMINO TRANSFERASE 35 U/L (17-59); BILIRUBIN,DIRECT 0.1 mg/dL (0.0-0.4); BILIRUBIN,TOTAL 0.5 mg/dL (0.2-1.3); BLOOD UREA NITROGEN 14 mg/dL (7-20); CALCIUM 9.6 mg/dL (8.4-10.2); CARBON DIOXIDE 26 mmol/L (22-30); CHLORIDE 107 mmol/L (98-107); GLUCOSE 102 mg/dL (75-110); POTASSIUM 4.2 mmol/L (3.6-5.0)
[2018-10-24 19:05] LABS: ALCOHOL < 10 mg/dL (NONE DETECTED)
--- NOTE | 2018-10-24 19:59 | RADIOLOGY REPORT (SQ) ---
EXAM DESCRIPTION: CHEST SINGLE VIEW COMPLETED DATE/TIME: 10/24/2018 7:50 pm REASON FOR STUDY: altered mental status COMPARISON: 07/26/2018 TECHNIQUE: Single frontal radiographic view of the chest acquired. NUMBER OF VIEWS: One view. LIMITATIONS: None. FINDINGS: LUNGS AND PLEURA: No pneumothorax. No consolidation or pleural effusion. MEDIASTINUM AND HILAR STRUCTURES: Stable. HEART AND VASCULAR STRUCTURES: Stable. BONES: No acute findings. HARDWARE: None in the chest. OTHER: No other significant finding. IMPRESSION: NO ACUTE FINDINGS. TECHNICAL DOCUMENTATION: JOB ID: [id number] [place]-72 2010 [employer]- All Rights Reserved Reading location - IP/workstation name: [email or web address]
--- NOTE | 2018-10-24 20:03 | RADIOLOGY REPORT (SQ) ---
EXAM DESCRIPTION: CT HEAD WITHOUT COMPLETED DATE/TIME: 10/24/2018 7:55 pm REASON FOR STUDY: altered mental status COMPARISON: 03/22/2018 TECHNIQUE: Axial images acquired through the brain without intravenous contrast. Images reviewed wit h bone, brain and subdural windows. Images stored on PACS. All CT scanners at this facility use dose modulation, iterative reconstruction, and/or weight based d osing when appropriate to reduce radiation dose to as low as reasonably achievable (ALARA). [facility]: Dose Right [facility]: CareDose [facility]: Dose Right [facility]: Teradose 4D [facility]: [employer] RADIATION DOSE: CT Rad equipment meets quality standard of care and radiation dose reduction techniq ues were employed. CTDIvol: 53.2 mGy. DLP: 1124 mGy-cm.. LIMITATIONS: None. FINDINGS: VENTRICLES: Normal size and contour. CEREBRUM: No masses. No hemorrhage. No midline shift. Age appropriate white matter. No evidence for a cute infarction. CEREBELLUM: No masses. No hemorrhage. No alteration of density. No evidence for acute infarction. EXTRA-AXIAL SPACES: No fluid collections. ORBITS AND GLOBE: No intra- or extraconal masses. Normal contour of globe without masses. CALVARIUM: No fracture. PARANASAL SINUSES: No fluid or mucosal thickening. SOFT TISSUES: No mass or hematoma. OTHER: No other significant finding. IMPRESSION: NO ACUTE INTRACRANIAL FINDINGS. EVIDENCE OF ACUTE STROKE: NO. TECHNICAL DOCUMENTATION: JOB ID: [id number] [place]-72 Quality ID # [id number]: Final reports with documentation of one or more dose reduction techniques (e.g., Au tomated exposure control, adjustment of the mA and/or kV according to patient size, use of iterative reconstruction technique) 2010 [employer]- All Rights Reserved Reading location - IP/workstation name: [email or web address]
--- NOTE | 2018-10-24 20:04 | ER Document Report ---
ED Medical Screen (RME) - General Chief Complaint: Altered Mental Status Stated Complaint: ALTERED MENTAL STATUS Time Seen by Provider: 10/24/18 19:29 Primary Care Provider: KAY BRUSH MD [Primary Care Provider] - Follow up as needed Mode of Arrival: Medic Information source: Patient Notes: Patient is a 43-year-old male here with significant comorbidities resenting for altered mental status per his . Patient's called EMS stating that patient was talking out of his head. EMS reports that patient has not recently been ill. At the time of my evaluation patient is alert and oriented to self. He is able to follow some commands but has a hard time staying focused. PHYSICAL EXAMINATION: GENERAL: Well-appearing, well-nourished and in no acute distress. Alert, oriented to self. Musculoskeletal: Normal range of motion, equal hosiery pairer strengths bilaterally, strong upper and lower extremity strength. I have greeted and performed a rapid initial assessment of this patient. A comprehensive ED assessment and evaluation of the patient, analysis of test results and completion of the medical decision making process will be conducted by additional ED providers. I have specifically instructed the patient or family members with the patient to immediately return to any nursing staff should anything change in the patient's condition or with their chief complaint. This medical record was dictated with voice recognizing software. There may be grammatical, syntax errors that are unintended. TRAVEL OUTSIDE OF THE [place] IN LAST 30 DAYS: No - Related Data Allergies/Adverse Reactions: iodine [Iodine] Allergy (Intermediate, Verified 07/14/17 11:34) Blisters Shellfish * [Shellfish] Allergy (Intermediate, Verified 07/14/17 11:34) Blisters clonazepam [From Klonopin] Allergy (Verified 07/14/17 11:34) Blisters Past Medical History - Past Medical History Cardiac Medical History: Reports: Hx Hypercholesterolemia, Hx Hypertension Denies: Hx Coronary Artery Disease, Hx Heart Attack Pulmonary Medical History: Reports: Hx COPD Denies: Hx Asthma, Hx Bronchitis, Hx Pneumonia Neurological Medical History: Denies: Hx Cerebrovascular Accident, Hx Seizures Renal/ Medical History: Reports: Hx Renal Insufficiency. Denies: Hx Peritoneal Dialysis GI Medical History: Reports: Hx Gastroesophageal Reflux Disease Musculoskeltal Medical History: Denies Hx Arthritis, Reports Hx Musculoskeletal Deformity, Reports Hx Musculoskeletal Trauma Skin Medical History: Reports Hx Cellulitis, Reports Hx MRSA Psychiatric Medical History: Reports: Hx Bipolar Disorder, Hx Depression, Hx Schizophrenia Infectious Medical History: Reports: Hx MRSA Past Surgical History: Reports: Hx Cholecystectomy, Hx Oral Surgery, Hx Orthopedic Surgery - 9 back surgeries, with lower abdominal midline incision. - Immunizations Hx Diphtheria, Pertussis, Tetanus Vaccination: Yes Physical Exam - Vital signs Vitals: Temp Pulse Resp BP Pulse Ox 97.9 F 72 18 121/86 H 95 10/24/18 18:29 10/24/18 18:29 10/24/18 18:29 10/24/18 18:29 10/24/18 18:29 Course - Vital Signs Vital signs: Temp Pulse Resp BP Pulse Ox 97.9 F 72 18 117/87 H 96 10/24/18 18:29 10/24/18 18:29 10/24/18 19:01 10/24/18 19:01 10/24/18 19:01 - Laboratory Result Diagrams: 10/24/18 18:20 10/24/18 18:20 Laboratory results interpreted by me: 10/24/18 18:20 RDW 15.1 H Doctor's Discharge - Discharge Referrals: KAY BRUSH MD [Primary Care Provider] - Follow up as needed
[2018-10-24 21:19] LABS: APPEARANCE,URINE CLEAR; BILIRUBIN,URINE NEGATIVE (NEGATIVE); COLOR,URINE YELLOW; GLUCOSE, URINE NEGATIVE (NEGATIVE); KETONES,URINE NEGATIVE (NEGATIVE); LEUKOCYTE ESTERASE,URINE NEGATIVE (NEGATIVE); NITRITE,URINE NEGATIVE (NEGATIVE); PROTEIN,URINE NEGATIVE (NEGATIVE); URINE SPECIFIC GRAVITY 1.005; UROBILINOGEN,URINE NEGATIVE mg/dL (<2.0)
[2018-10-24 21:35] LABS: URINE AMPHETAMINES SCREEN NEGATIVE; URINE BARBITURATES SCREEN NEGATIVE; URINE BENZODIAZEPINES SCREEN NEGATIVE; URINE COCAINE SCREEN NEGATIVE; URINE MARIJUANA (THC) SCREEN NEGATIVE; URINE METHADONE SCREEN NEGATIVE; URINE PHENCYCLIDINE SCREEN NEGATIVE
[2018-10-24] MEDS ORDERED: NORMAL SALINE 1000 ML 1,000 ML IV ONE (23:15)
[2018-10-24] MEDS ORDERED: NORMAL SALINE 1000 ML 1,000 ML IV PRN (23:24)
[2018-10-24] MEDS ORDERED: IPRATROPIUM/ALBUTEROL 0.5-2.5 MG/3 ML AMPUL NEB PRN (23:24)
--- NOTE | 2018-10-24 23:28 | ER Document Report ---
HPI - HPI Patient complains to provider of: altered mental status Time Seen by Provider: 10/24/18 19:29 Pain Level: Denies Context: pt is a 43 yr old male pt with the listed pmh, brought in by ems, by concern of a family member for ams for the last day or more; however, duration of sx is uncertain as no one is here with pt and pt isn't able to give me much hx. hx is extremely limited to pts current mental status. he has a hx of schizo and polypharmacy to include narcotics and noncompliance with meds. he denies any sx to me. he isn't able to tell me why he is here. he is able to tell me what street he lives on. he isn't able to tell me his pcp, what year it is, who the president is, what his last name is. he does know his bday however. he doesn't know what town he is in. he doesn't know his age but again knows his bday. he states he does have a named norma he lives with and gives me his street name that is in his file. he can't tell me that he takes any medications. he denies hurting anywhere or any complaints. hx is again limited to these means. pt denies any complaints currently and would just like his pulse ox off his finger. per records pcp is landy. Similar symptoms previously: Yes Recently seen / treated by doctor: No - ROS ROS Unobtainable: Yes ROS unobtainable due to patient's medical condition - pt is altered and hx not reliable secondary to this Past Medical History - General Information source: Patient - Social History Smoking Status: Unknown if Ever Smoked Frequency of alcohol use: unknown Drug Abuse: Other - unknown Lives with: Spouse/Significant other - possibly per pt report Family History: Hypertension Patient has suicidal ideation: No Patient has homicidal ideation: No - Past Medical History Cardiac Medical History: Reports: Hx Hypercholesterolemia, Hx Hypertension Denies: Hx Coronary Artery Disease, Hx Heart Attack Pulmonary Medical History: Reports: Hx COPD - not on home o2 Denies: Hx Asthma, Hx Bronchitis, Hx Pneumonia Neurological Medical History: Denies: Hx Cerebrovascular Accident, Hx Seizures Renal/ Medical History: Reports: Hx Renal Insufficiency. Denies: Hx Peritoneal Dialysis GI Medical History: Reports: Hx Gastroesophageal Reflux Disease Skin Medical History: Reports Hx Cellulitis, Reports Hx MRSA Psychiatric Medical History: Reports: Hx Bipolar Disorder, Hx Depression, Hx Schizophrenia Infectious Medical History: Reports: Hx MRSA Past Surgical History: Reports: Hx Cholecystectomy, Hx Oral Surgery, Hx Orthopedic Surgery - 9 back surgeries, with lower abdominal midline incision. - Immunizations Immunizations up to date: Yes Hx Diphtheria, Pertussis, Tetanus Vaccination: Yes Hx Pneumococcal Vaccination: 02/06/00 Vertical Provider Document - CONSTITUTIONAL Agree With Documented VS: Yes Exam Limitations: Clinical Condition General Appearance: WD/WN Notes: GENERAL_APPEARANCE: well_nourished, alert, mostly cooperative, no obvious discomfort. Pleasant, obese middle aged male, smiling, speaking in full sentences, in no sign of pain or resp distress, easily sitting up. no one is with him. some what bizarre affect. appears to have TD with mostly constant lip smacking VITALS: reviewed, see vital signs table. HEAD: normocephalic and atraumatic, no raccoon eyes, no bhagat signs. no swelling or ttp. EARS: canals_clear_bilat, TMs_clear, no_discharge_from_ears. no hemotympanum EYES: EOMI without pain, conjunctiva_clear. PERRL, eyelids wnl. no drainage. no ttp or crepitation of the orbits. no sign of orbital/periorbital cellulitis. no hyphema. no subconjunctival hemorrhage. no nystagmus. no photophobia. MOUTH: no_lacerations inside_mouth. no broken teeth. no tmj clicking or ttp. pharynx wnl. tongue protrudes midline. no drooling, tripoding, voice change, or stridor, no thrush or oral lesions. no tongue or lip swelling. NOSE: no drainage or epistaxis NECK: no_swelling\tenderness on the neck. no midline bony tenderness. no step offs or deformities. full rom. full strength. no meningeal signs. no sign of central cord syndrome. HEART: normal_rate, normal_rhythm, LUNGS: ctab. no chest wall ttp. no overlying skin changes. no flail chest or crepitation. ABDOMEN: normal_BS, soft, no_abd_tenderness, no rebound, guarding, distension, or peritoneal signs. no cva ttp. no overlying skin changes. BACK: no midline bony tenderness. no step offs or deformities RECTAL: deferred, however, no sign of loss of bowel or bladder or soiling of clothing. EXTREMITIES: strength 5/5 in all_extremities, good pulses all_extremities, no_abrasions\lacerations in the extremities, no_swelling\tenderness in the extremities. full rom. normal gait. good hand gallery intern. brisk cap refill. no shortening or rotation of the limbs or other signs of deformities unless otherwise noted. SKIN: warm, dry, good_color. no other grossly visible overlying skin changes or signs of trauma unless otherwise noted. NEURO: cranial nerves 2-12 intact, motor_intact, sensory_intact. not able to complete neuro exam further due to noncompliance and agitation. GLASCOW_COMA_SCORE: (adult) - eyes_open_spontaneously_4, verbal_converses_and_oriented_5, motor_obeys_commands_6, gl[place]_coma_total_15, MENTAL_STATUS: speech_clear, alert and oriented as stated in hpi, responds_appropriately to some-most questions. - INFECTION CONTROL TRAVEL OUTSIDE OF THE [place] IN LAST 30 DAYS: No Course - Re-evaluation Re-evalutation: 10/24/18 23:31 pt here for ams of unknown duration. etiology unknown. could be polypharmacy vs adverse medication reaction vs medication noncompliance vs etc. labs unremarkable other than as noted. ekg unremarkable per ed attending. cxr and ct brain neg per rad and reviewed by myself. case discussed with ed attending, dr wells, who advised to call pts pcp, dr bill, to admit the pt for further workup of his acute encephalopathy/ams, i did speak with dr bill, who also admits his own pts as a hospitalist here at this facility, and agreed to accept the pt to his service for further workup and tx. care transferred to dr bill in stable condition. he requested i order an abg which i did and results are pending per interpretation of dr bill at time of dictation, and he then requested no further workup emergently through the er and he would put the the rest of the further tx and orders for the pt in. please refer to dr crowell note for further details of the pt. On reexam, pt remained stable. nontoxic. well appearing. case discussed with ER Attending, Dr. wells, who directed and agrees with plan of care and advised to admit the pt for further work up and tx Documentation achieved through voice recording which may lead to some occasional accidental typographical errors. Extensive efforts have been made to proof read documentation to make sure these are the least as possible. Category Date Time Status Accucheck (ED) STAT Care 10/24/18 18:18 Active Adult Intake and Output [RC] Q6 Care 10/24/18 23:25 Active Continuous Cardiac Monitoring (ED) CONTINUOUS Care 10/24/18 18:18 Completed Continuous Cardiac Monitoring (ED) CONTINUOUS Care 10/24/18 19:36 Active EKG Documentation STAT Care 10/24/18 18:18 Completed EKG Documentation STAT Care 10/24/18 19:36 Active PCT AccuChek Documentation NOW Care 10/24/18 18:18 Active PSYCH [Consult Mobile Crisis] STAT Care 10/24/18 23:25 Ordered Patient Education-Lovenox [RC] DAILY Care 10/24/18 23:29 Active Patient Education-VTE [RC] QSHIFT Care 10/24/18 23:29 Active Patient Education-VTE [RC] QSHIFT Care 10/24/18 23:29 Active Patient Status-Admission .Routine Care 10/24/18 23:25 Active Pulse Oximeter Continuous (ED) CONTINUOUS Care 10/24/18 18:18 Active Pulse Oximeter Continuous (ED) CONTINUOUS Care 10/24/18 19:36 Active Saline Lock (ED) NOW Care 10/24/18 18:18 Active Saline Lock (ED) NOW Care 10/24/18 19:36 Active Riaz Hose [RC] QSHIFT Care 10/24/18 23:29 Active Social Service/Discharge Plan Consult [CONS] Routine Cons 10/24/18 23:26 Active Adult Diet [DIET] Diet 10/24/18 Breakfast Active CHEST SINGLE VIEW [RAD] Stat Exams 10/24/18 19:[address] HEAD WITHOUT [CT] Stat Exams 10/24/18 19:37 Completed ACETAMINOPHEN [CHEM] Stat Lab 10/24/18 23:24 Ordered ALCOHOL [CHEM] Stat Lab 10/24/18 18:20 Completed AMMONIA [CHEM] Stat Lab 10/24/18 20:38 Completed ARTERIAL BLOOD GAS [CHEM] IN AM Lab 10/25/18 06:00 Uncollected BASIC METABOLIC PANEL [CHEM] DAILY Lab 10/25/18 06:00 Ordered BASIC METABOLIC PANEL [CHEM] DAILY Lab 10/26/18 06:00 Ordered BASIC METABOLIC PANEL [CHEM] DAILY Lab 10/27/18 06:00 Ordered BLOOD CULTURE [MC] IN AM Lab 10/25/18 06:00 Ordered CBC WITH DIFF [HEME] DAILY Lab 10/25/18 06:00 Ordered CBC WITH DIFF [HEME] DAILY Lab 10/26/18 06:00 Ordered CBC WITH DIFF [HEME] DAILY Lab 10/27/18 06:00 Ordered CBC WITH DIFF [HEME] Stat Lab 10/24/18 18:20 Completed COMPREHENSIVE METABOLIC PANEL [CHEM] Stat Lab 10/24/18 18:20 Completed CREATINE KINASE [CHEM] Stat Lab 10/24/18 18:20 Completed LACTIC ACID SEPSIS [CHEM] Stat Lab 10/24/18 18:20 Completed LIPASE [CHEM] Stat Lab 10/24/18 18:20 Completed MAGNESIUM [CHEM] Stat Lab 10/24/18 18:20 Completed SALICYLATE [CHEM] Stat Lab 10/24/18 23:25 Ordered TROPONIN I [CHEM] Stat Lab 10/24/18 18:20 Completed URINALYSIS [URIN] Stat Lab 10/24/18 20:20 Completed URINE CULTURE [MC] Routine Lab 10/24/18 23:27 Uncollected URINE DRUG SCREEN [CHEM] Stat Lab 10/24/18 20:20 Completed Acetaminophen [Tylenol 325 mg Tablet] Med 10/24/18 23:24 Ordered 650 mg PO Q4HP PRN Enoxaparin Sodium [Lovenox Inj 40 mg/0.4 ml Disp.syrin] Med 10/25/18 10:00 Ordered 40 mg SUBCUT DAILY Ipratropium/Albuterol Sulfate [Duoneb 3 ml Ampul] Med 10/24/18 23:24 Ordered 3 ml NEB RTQ6HP PRN Normal Saline 1000 ml [NaCl 0.9% 1000 ml IV Soln] 1,000 Med 10/24/18 23:15 Discontinued ml IV BOLUS Normal Saline 1000 ml [NaCl 0.9% 1000 ml IV Soln] 1,000 Med 10/24/18 23:24 Ordered ml IV CONTINUOUS Pantoprazole Sodium [Protonix [address] Tablet] Med 10/25/18 06:00 Ordered 40 mg PO Q6AM EKG ER ONLY [ER] Stat Oth 10/24/18 18:18 Active Mechanical Prophylaxis .ROUTINE Ot 10/24/18 23:30 Ordered Pharmacological Prophylaxis .ROUTINE Ot 10/24/18 23:30 Ordered Resuscitation Status Routine Ot 10/24/18 23:24 Ordered Vital Signs [RC] Q4H Oth 10/24/18 23:25 Active Weight [RC] Q6AM Ot 10/24/18 23:25 Active Nebulizer Therapy Routine [RESPCARE] RTQ6HP Ther 10/24/18 23:28 Active - Vital Signs Vital signs: Temp Pulse Resp BP Pulse Ox 97.9 F 72 30 H 115/81 95 10/24/18 18:29 10/24/18 18:29 10/24/18 21:37 10/24/18 21:37 10/24/18 21:37 10/24/18 23:30 Temp Pulse Resp BP BP Pulse Ox 10/24/18 21:37 30 H 115/81 95 10/24/18 21:36 17 98/71 L 97 10/24/18 21:35 23 H 10/24/18 21:00 25 H 10/24/18 20:00 20 10/24/18 19:01 18 117/87 H 96 10/24/18 19:00 20 95 10/24/18 18:30 95 10/24/18 18:29 97.9 F 72 18 121/86 H 95 Temp Pulse Resp BP BP Pulse Ox 10/24/18 23:02 16 114/79 96 10/24/18 22:02 21 H 112/78 95 10/24/18 21:37 30 H 115/81 95 10/24/18 21:36 17 98/71 L 97 10/24/18 21:35 23 H 10/24/18 21:00 25 H 10/24/18 20:00 20 10/24/18 19:01 18 117/87 H 96 10/24/18 19:00 20 95 10/24/18 18:30 95 10/24/18 18:29 97.9 F 72 18 121/86 H 95 - Laboratory Result Diagrams: 10/25/18 07:23 10/26/18 07:15 Laboratory results interpreted by me: 10/24/18 18:20 RDW 15.1 H 10/24/18 23:30 Labs- Entire Visit 10/24/18 10/24/18 10/24/18 18:20 18:20 18:20 WBC 7.4 RBC 5.55 Hgb 15.4 Hct 45.8 MCV 83 MCH 27.7 MCHC 33.5 RDW 15.1 H Plt Count 220 Lymph % (Auto) 30.1 [place] % (Auto) 8.0 Eos % (Auto) 1.8 Baso % (Auto) 0.4 Absolute Neuts (auto) 4.4 Absolute Lymphs (auto) 2.2 Absolute Monos (auto) 0.6 Absolute Eos (auto) 0.1 Absolute Basos (auto) 0.0 Seg Neutrophils % 59.7 Sodium 141.4 Cancelled Potassium 4.2 Cancelled Chloride 107 Cancelled Carbon Dioxide 26 Cancelled Anion Gap 8 Cancelled BUN 14 Cancelled Creatinine 1.13 Cancelled Est GFR ( Amer) > 60 Cancelled Est GFR (Non-Af Amer) Cancelled Est GFR (MDRD) Non-Af > 60 Cancelled Glucose 102 Cancelled Lactic Acid Calcium 9.6 Cancelled Magnesium 2.0 Total Bilirubin 0.5 Cancelled Direct Bilirubin 0.1 Cancelled Neonat Total Bilirubin Not Reportable Cancelled Neonat Direct Bilirubin Not Reportable Cancelled Neonat Indirect Bili Not Reportable Cancelled AST 35 Cancelled ALT 29 Cancelled Alkaline Phosphatase 82 Cancelled Ammonia Creatine Kinase 122 Troponin I Total Protein 7.0 Cancelled Albumin 4.3 Cancelled Lipase EGFR Cancelled Urine Color Urine Appearance Urine pH Ur Specific [place] Urine Protein Urine Glucose (UA) Urine Ketones Urine Blood Urine Nitrite Urine Bilirubin Urine Urobilinogen Ur Leukocyte Esterase Urine WBC (Auto) Urine RBC (Auto) Squamous Epi Cells Auto Urine Mucus (Auto) Urine Ascorbic Acid Urine Opiates Screen Urine Methadone Screen Ur Barbiturates Screen Ur Phencyclidine Scrn Ur Amphetamines Screen U Benzodiazepines Scrn Urine Cocaine Screen U Marijuana (THC) Screen Serum Alcohol < 10 10/24/18 10/24/18 10/24/18 18:20 18:20 18:20 WBC RBC Hgb Hct MCV MCH MCHC RDW Plt Count Lymph % (Auto) [place] % (Auto) Eos % (Auto) Baso % (Auto) Absolute Neuts (auto) Absolute Lymphs (auto) Absolute Monos (auto) Absolute Eos (auto) Absolute Basos (auto) Seg Neutrophils % Sodium Potassium Chloride Carbon Dioxide Anion Gap BUN Creatinine Est GFR ( Amer) Est GFR (Non-Af Amer) Est GFR (MDRD) Non-Af Glucose Lactic Acid 1.3 Calcium Magnesium Cancelled Total Bilirubin Direct Bilirubin Neonat Total Bilirubin Neonat Direct Bilirubin Neonat Indirect Bili AST ALT Alkaline Phosphatase Ammonia Creatine Kinase Troponin I < 0.012 Total Protein Albumin Lipase 105.7 EGFR Urine Color Urine Appearance Urine pH Ur Specific [place] Urine Protein Urine Glucose (UA) Urine Ketones Urine Blood Urine Nitrite Urine Bilirubin Urine Urobilinogen Ur Leukocyte Esterase Urine WBC (Auto) Urine RBC (Auto) Squamous Epi Cells Auto Urine Mucus (Auto) Urine Ascorbic Acid Urine Opiates Screen Urine Methadone Screen Ur Barbiturates Screen Ur Phencyclidine Scrn Ur Amphetamines Screen U Benzodiazepines Scrn Urine Cocaine Screen U Marijuana (THC) Screen Serum Alcohol 10/24/18 10/24/18 10/24/18 20:20 20:20 20:38 WBC RBC Hgb Hct MCV MCH MCHC RDW Plt Count Lymph % (Auto) [place] % (Auto) Eos % (Auto) Baso % (Auto) Absolute Neuts (auto) Absolute Lymphs (auto) Absolute Monos (auto) Absolute Eos (auto) Absolute Basos (auto) Seg Neutrophils % Sodium Potassium Chloride Carbon Dioxide Anion Gap BUN Creatinine Est GFR ( Amer) Est GFR (Non-Af Amer) Est GFR (MDRD) Non-Af Glucose Lactic Acid Calcium Magnesium Total Bilirubin Direct Bilirubin Neonat Total Bilirubin Neonat Direct Bilirubin Neonat Indirect Bili AST ALT Alkaline Phosphatase Ammonia 10.4 Creatine Kinase Troponin I Total Protein Albumin Lipase EGFR Urine Color YELLOW Urine Appearance CLEAR Urine pH 7.0 Ur Specific [place] 1.005 Urine Protein NEGATIVE Urine Glucose (UA) NEGATIVE Urine Ketones NEGATIVE Urine Blood NEGATIVE Urine Nitrite NEGATIVE Urine Bilirubin NEGATIVE Urine Urobilinogen NEGATIVE Ur Leukocyte Esterase NEGATIVE Urine WBC (Auto) 1 Urine RBC (Auto) 0 Squamous Epi Cells Auto <1 Urine Mucus (Auto) RARE Urine Ascorbic Acid NEGATIVE Urine Opiates Screen NEGATIVE Urine Methadone Screen NEGATIVE Ur Barbiturates Screen NEGATIVE Ur Phencyclidine Scrn NEGATIVE Ur Amphetamines Screen NEGATIVE U Benzodiazepines Scrn NEGATIVE Urine Cocaine Screen NEGATIVE U Marijuana (THC) Screen NEGATIVE Serum Alcohol - Diagnostic Test Radiology reviewed: Image reviewed, Reports reviewed Radiology results interpreted by me: 10/24/18 23:30 Chest X-Ray 10/24/18 19:36 IMPRESSION: NO ACUTE FINDINGS. Head CT 10/24/18 19:37 IMPRESSION: NO ACUTE INTRACRANIAL FINDINGS. EVIDENCE OF ACUTE STROKE: NO. - EKG Interpretation by Fl EKG shows normal: Sinus rhythm Rate: Normal - 63 bpm, no stemi, reviewed by dr wells Rhythm: PVC's When compared to previous EKG there are: No significant change Discharge - Discharge Clinical Impression: Acute encephalopathy, Polypharmacy Altered mental status Qualifiers: Altered mental status type: unspecified Qualified Code(s): R41.82 - Altered mental status, unspecified Condition: Stable Disposition: ADMITTED OBSERVATION Admitting Provider: Landy - agreed to accept the pt at 11:20p Unit Admitted: Telemetry
[2018-10-24 23:39] LABS: ACETAMINOPHEN < 10 ug/mL (10-30); SALICYLATE < 1.0 mg/dL (2.0-20.0)
--- NOTE | 2018-10-24 23:56 | EKG REPORT ---
SEVERITY:- OTHERWISE NORMAL ECG - SINUS RHYTHM VENTRICULAR PREMATURE COMPLEX LEFT AXIS DEVIATION : Confirmed by: Fernando Biggs MD 24-Oct-2018 23:56:01
[2018-10-25] MEDS: PANTOPRAZOLE SODIUM 40 MG TABLET.DR PO SCH (05:01)
[2018-10-25 08:02] LABS: ABSOLUTE EOSINOPHILS # (AUTO) 0.1 10^3/uL (0.0-0.6); ABSOLUTE MONOCYTES (AUTO) 0.5 10^3/uL (0.1-1.4); ABSOLUTE NEUT (AUTO) 3.7 10^3/uL (1.7-8.2); BASOPHILS % (AUTO) 0.2 % (0-2); EOSINOPHILS % (AUTO) 1.6 % (0-6); HEMATOCRIT 44.7 % (37.9-51.0); HEMOGLOBIN 15.1 g/dL (13.5-17.0); LYMPHOCYTES % (AUTO) 31.9 % (13-45); MEAN CORPUSCULAR HEMOGLOBIN 28.1 pg (27.0-33.4); MEAN CORPUSCULAR HGB CONC 33.7 g/dL (32.0-36.0); MEAN CORPUSCULAR VOLUME 83 fl (80-97); PLATELET COUNT 204 10^3/uL (150-450); RED BLOOD COUNT 5.36 10^6/uL (4.35-5.55); RED CELL DISTRIBUTION WIDTH 15.2 % (11.5-14.0); SEGMENTED NEUTROPHILS % (AUTO) 58.3 % (42-78); TOTAL CELLS COUNTED % (AUTO) 100 %; WHITE BLOOD COUNT 6.3 10^3/uL (4.0-10.5)
[2018-10-25 08:33] LABS: ANION GAP 7 (5-19); BLOOD UREA NITROGEN 15 mg/dL (7-20); CALCIUM 9.6 mg/dL (8.4-10.2); CARBON DIOXIDE 28 mmol/L (22-30); CHLORIDE 108 mmol/L (98-107); GLUCOSE 91 mg/dL (75-110); POTASSIUM 4.8 mmol/L (3.6-5.0)
[2018-10-25] MEDS: ENOXAPARIN SODIUM INJ 40 MG/0.4 ML DISP.SYRIN SUBCUT SCH (09:27)
--- NOTE | 2018-10-25 12:16 | RADIOLOGY REPORT (SQ) ---
EXAM DESCRIPTION: MRI HEAD WITHOUT COMPLETED DATE/TIME: 10/25/2018 12:04 pm REASON FOR STUDY: ams COMPARISON: CT brain dated 10/23/2018, MRI brain dated 09/17/2017 TECHNIQUE: Multiplanar imaging includes non-contrasted T1, T2, FLAIR, and diffusion with ADC map seq uences. Images stored on PACS. LIMITATIONS: None. FINDINGS: ANATOMY: No anomalies. Normal vascular flow voids. Pituitary fossa normal. CSF SPACES: Normal in size and contour. No hemorrhage. CEREBRUM: Sulci and gyri normal in size and contour. Infrequent periventricular and subcortical whit e matter lesions are noted on STIR sequences. . No evidence of hemorrhage, mass, or extraaxial flui d collection. POSTERIOR FOSSA: No signal alteration. No hemorrhage. No edema, masses or mass effect. Internal adrián tory canals, cerebello-pontine angles, mastoids normal. DIFFUSION IMAGING: Negative for acute or sub-acute infarction. ORBITS: No masses. Globes normal. PARANASAL SINUSES: No fluid levels. Mucosa normal. OTHER: No other significant finding. IMPRESSION: No acute findings. Infrequent periventricular and subcortical white matter lesions most likely related to small vessel disease. EVIDENCE OF ACUTE STROKE: NO. TECHNICAL DOCUMENTATION: JOB ID: [id number] [employer]- All Rights Reserved Reading location - IP/workstation name: [email or web address]
--- NOTE | 2018-10-25 13:28 | PDOC H&P ---
History of Present Illness Admission Date/PCP: 10/24/18 23:40 KAY BRUSH MD Patient complains of: Altered mental status History of Present Illness: DONALD GARRIDO is a 43 year oldThis is a 43-year-old male with a significant history of the COPD hypertension hyperlipidemia history of bipolar disorder and history of the chronic back pain and chronic pain syndrome currently see pain management and a psychiatrist with the multiple medications for that chronic smoker came to the emergency department because of the patient Martin call the EMS because of the altered mental status and patient is talking to his head EMS noticed dyskinesia And given Benadryl And ER provider not in HPI I do not see any kind of but that but in the ER patient had a CT of the head was done was negative all blood work was negative's urine drug screen was negative's and patients pretty much with what he is in the baseline but ER provider was concerned about altered mental status wants to me admit When I saw the patient is fully alert awake oriented x4 patient does not have a no confusions patient does not aware About any kind of a confusion but he was talking to his ahead probably underlying bipolar disorders Patient at this point MRI of the head was done to rule out other neurological symptoms which is negative's because patient was complaining some dizziness Patient's blood pressure medicines was currently readjusted giving IV fluid and will wait for the psych consult before the discharge the patient's Is medically currently stable is no any sign of infections There is no sign of any overdose There is no sign of any neurological symptoms production bow maker is all stable Past Medical History Cardiac Medical History: Reports: Hyperlipidema, Hypertension Denies: Coronary Artery Disease, Myocardial Infarction Pulmonary Medical History: Reports: Chronic Obstructive Pulmonary Disease (COPD) Denies: Asthma, Bronchitis, Pneumonia Neurological Medical History: Denies: Seizures GI Medical History: Reports: Gastroesophageal Reflux Disease Musculoskeltal Medical History: Denies: Arthritis Psychiatric Medical History: Reports: Bipolar Disorder, Depression, General Anxiety Disorder Hematology: Denies: Anemia Infectious Medical History: Reports: Methicillin-Resistant Staph Aureus Past Surgical History Past Surgical History: Reports: Cholecystectomy, Orthopedic Surgery - 9 back surgeries, with lower abdominal midline incision. Social History Smoking Status: Current Every Day Smoker Cigarettes Packs Per Day: 2 Number of Years Smokin Frequency of Alcohol Use: Heavy Hx Recreational Drug Use: Yes Drugs: Marijuana Hx Prescription Drug Abuse: Yes Family History Family History: Reviewed & Not Pertinent, Hypertension Parental Family History Reviewed: Yes Children Family History Reviewed: Yes Sibling(s) Family History Reviewed.: Yes Medication/Allergy Home Medications: Atorvastatin Calcium [Lipitor 10 mg Tablet] 10 mg PO QHS 03/22/18 Baclofen [Baclofen 10 mg Tablet] 10 mg PO Q6HP PRN 03/22/18 Benztropine Mesylate [Benztropine Mesylate 2 mg Tablet] 2 mg PO Q12 03/22/18 Buspirone HCl [Buspar 15 mg Tablet] 15 mg PO Q8 03/22/18 Esomeprazole Magnesium 40 mg PO DAILY 03/22/18 Fenofibrate Nanocrystallized [Tricor 145 mg Tablet] 145 mg PO QHS 03/22/18 Fluoxetine HCl 80 mg PO DAILY 03/22/18 Gabapentin [Neurontin 300 mg Capsule] 300 mg PO Q8 03/22/18 Haloperidol 10 mg PO QHS 03/22/18 Metoprolol Succinate [Toprol Xl] 50 mg PO DAILY 03/22/18 Tamsulosin HCl [Flomax 0.4 mg Cap.sr] 0.4 mg PO DAILY 03/22/18 Trazodone HCl [Desyrel 50 mg Tablet] 100 mg PO QHS 03/22/18 Albuterol Sulfate [Albuterol Sulfate Hfa] 2 puff IH Q6HP PRN 07/26/18 Amlodipine Besylate [Norvasc 2.5 mg Tablet] 2.5 mg PO Q12 07/26/18 Enalapril Maleate [Vasotec 10 mg Tablet] 10 mg PO DAILY 07/26/18 Hydroxyzine Pamoate [Vistaril 25 mg Capsule] 25 mg PO Q8HP PRN 07/26/18 Oxycodone HCl 20 mg PO QIDP PRN 10/25/18 Allergies/Adverse Reactions: iodine [Iodine] Allergy (Intermediate, Verified 07/14/17 11:34) Blisters Shellfish * [Shellfish] Allergy (Intermediate, Verified 07/14/17 11:34) Blisters clonazepam [From Klonopin] Allergy (Verified 07/14/17 11:34) Blisters Review of Systems Constitutional: ABSENT: chills, fever(s), headache(s), weight gain, weight loss Eyes: ABSENT: visual disturbances Ears: ABSENT: hearing changes Cardiovascular: ABSENT: chest pain, dyspnea on exertion, edema, orthropnea, palpitations Respiratory: ABSENT: cough, hemoptysis Gastrointestinal: ABSENT: abdominal pain, constipation, diarrhea, hematemesis, hematochezia, nausea, vomiting Genitourinary: ABSENT: dysuria, hematuria Musculoskeletal: ABSENT: joint swelling Integumentary: ABSENT: rash, wounds Neurological: ABSENT: abnormal gait, abnormal speech, confusion, dizziness, focal weakness, syncope Psychiatric: ABSENT: anxiety, depression, homidical ideation, suicidal ideation Endocrine: ABSENT: cold intolerance, heat intolerance, menstrual abnormalities, polydipsia, polyuria Hematologic/Lymphatic: ABSENT: easy bleeding, easy bruising, lymphadenopathy Physical Exam Vital Signs: Temp Pulse Resp BP Pulse Ox 98.4 F 66 16 133/70 H 96 10/25/18 08:30 10/25/18 08:30 10/25/18 08:30 10/25/18 08:30 10/25/18 08:30 Intake & Output 10/24/18 10/25/18 10/26/18 06:59 06:59 06:59 Intake Total 1000 Balance 1000 Weight 108.4 kg General appearance: PRESENT: no acute distress, well-developed, well-nourished Head exam: PRESENT: atraumatic, normocephalic Eye exam: PRESENT: conjunctiva pink, EOMI, PERRLA. ABSENT: scleral icterus Ear exam: PRESENT: normal external ear exam Mouth exam: PRESENT: moist, tongue midline Neck exam: PRESENT: full ROM. ABSENT: carotid bruit, JVD, lymphadenopathy, thyromegaly Respiratory exam: PRESENT: clear to auscultation wan Cardiovascular exam: PRESENT: RRR. ABSENT: diastolic murmur, rubs, systolic murmur Pulses: PRESENT: normal dorsalis pedis pul, +2 pedal pulses bilateral Vascular exam: PRESENT: normal capillary refill GI/Abdominal exam: PRESENT: normal bowel sounds, soft. ABSENT: distended, guarding, mass, organolmegaly, rebound, tenderness Rectal exam: PRESENT: deferred Musculoskeletal exam: PRESENT: ambulatory Neurological exam: PRESENT: alert, awake, oriented to person, oriented to place, oriented to time, oriented to situation, CN II-XII grossly intact. ABSENT: motor sensory deficit Psychiatric exam: PRESENT: appropriate affect, normal mood. ABSENT: homicidal ideation, suicidal ideation Skin exam: PRESENT: dry, intact, warm. ABSENT: cyanosis, rash Results Laboratory Results: 10/25/18 07:23 10/25/18 07:23 10/24/18 10/24/18 10/24/18 18:20 18:20 18:20 WBC 7.4 RBC 5.55 Hgb 15.4 Hct 45.8 MCV 83 MCH 27.7 MCHC 33.5 RDW 15.1 H Plt Count 220 Seg Neutrophils % 59.7 Sodium 141.4 Cancelled Potassium 4.2 Cancelled Chloride 107 Cancelled Carbon Dioxide 26 Cancelled Anion Gap 8 Cancelled BUN 14 Cancelled Creatinine 1.13 Cancelled Est GFR ( Amer) > 60 Cancelled Est GFR (Non-Af Amer) Cancelled Glucose 102 Cancelled Lactic Acid Calcium 9.6 Cancelled Magnesium 2.0 Total Bilirubin 0.5 Cancelled AST 35 Cancelled Alkaline Phosphatase 82 Cancelled Ammonia Total Protein 7.0 Cancelled Albumin 4.3 Cancelled Lipase Urine Color Urine Appearance Urine pH Ur Specific [place] Urine Protein Urine Glucose (UA) Urine Ketones Urine Blood Urine Nitrite Ur Leukocyte Esterase Urine WBC (Auto) Urine RBC (Auto) 10/24/18 10/24/18 10/24/18 18:20 18:20 20:20 WBC RBC Hgb Hct MCV MCH MCHC RDW Plt Count Seg Neutrophils % Sodium Potassium Chloride Carbon Dioxide Anion Gap BUN Creatinine Est GFR ( Amer) Est GFR (Non-Af Amer) Glucose Lactic Acid 1.3 Calcium Magnesium Cancelled Total Bilirubin AST Alkaline Phosphatase Ammonia Total Protein Albumin Lipase 105.7 Urine Color YELLOW Urine Appearance CLEAR Urine pH 7.0 Ur Specific [place] 1.005 Urine Protein NEGATIVE Urine Glucose (UA) NEGATIVE Urine Ketones NEGATIVE Urine Blood NEGATIVE Urine Nitrite NEGATIVE Ur Leukocyte Esterase NEGATIVE Urine WBC (Auto) 1 Urine RBC (Auto) 0 10/24/18 10/25/18 10/25/18 20:38 07:23 07:23 WBC 6.3 RBC 5.36 Hgb 15.1 Hct 44.7 MCV 83 MCH 28.1 MCHC 33.7 RDW 15.2 H Plt Count 204 Seg Neutrophils % 58.3 Sodium 143.4 Potassium 4.8 Chloride 108 H Carbon Dioxide 28 Anion Gap 7 BUN 15 Creatinine 1.02 Est GFR ( Amer) > 60 Est GFR (Non-Af Amer) Glucose 91 Lactic Acid Calcium 9.6 Magnesium Total Bilirubin AST Alkaline Phosphatase Ammonia 10.4 Total Protein Albumin Lipase Urine Color Urine Appearance Urine pH Ur Specific [place] Urine Protein Urine Glucose (UA) Urine Ketones Urine Blood Urine Nitrite Ur Leukocyte Esterase Urine WBC (Auto) Urine RBC (Auto) 10/24/18 10/24/18 18:20 18:20 Creatine Kinase 122 Troponin I < 0.012 Impressions: Chest X-Ray 10/24/18 19:36 IMPRESSION: NO ACUTE FINDINGS. Head CT 10/24/18 19:37 IMPRESSION: NO ACUTE INTRACRANIAL FINDINGS. EVIDENCE OF ACUTE STROKE: NO. Head MRI 10/25/18 00:00 IMPRESSION: No acute findings. Infrequent periventricular and subcortical white matter lesions most likely related to small vessel disease. EVIDENCE OF ACUTE STROKE: NO. Assessment & Plan - Diagnosis (1) Acute encephalopathy Is this a current diagnosis for this admission?: Yes Plan: Patient's initial all metabolic work-up is negative's no sign of any overdose Most likely related to the medications with the multiple psych medications we will discontinues the trazodone and Cogentin Will get the physical therapy and psych evaluations (2) Altered mental status Qualifiers: Altered mental status type: unspecified Qualified Code(s): R41.82 - Altered mental status, unspecified Is this a current diagnosis for this admission?: Yes Plan: Patient's initial neurological work-up is all negative's most likely multiple psych medications with some pain medications (3) Polypharmacy Is this a current diagnosis for this admission?: Yes Plan: Discontinues Cogentin and the trazodone continues the BuSpar and Prozac will refer to the psych for further readjust the medications (4) BPH (benign prostatic hypertrophy) Qualifiers: Lower urinary tract symptom detail: unspecified Is this a current diagnosis for this admission?: Yes Plan: Continues to Flomax (5) Bipolar disorder Qualifiers: Active/Remission status: currently active Is this a current diagnosis for this admission?: Yes Plan: I think patients definitely need a psych evaluations and readjust some of the medications (6) COPD (chronic obstructive pulmonary disease) Qualifiers: COPD type: chronic bronchitis Is this a current diagnosis for this admission?: Yes Plan: Continues to nebulizer (7) Chronic back pain Qualifiers: Back pain location: low back pain Is this a current diagnosis for this admission?: Yes Plan: Is currently see a pain management (8) Chronic pain syndrome Is this a current diagnosis for this admission?: Yes (9) Continuous tobacco abuse Is this a current diagnosis for this admission?: Yes Plan: Discussed with the patient about the smoking counseling (10) Hyperlipidemia Qualifiers: Hyperlipidemia type: unspecified Is this a current diagnosis for this admission?: Yes (11) Hypertension Qualifiers: Hypertension type: essential hypertension Is this a current diagnosis for this admission?: Yes Plan: We will hold the beta-brandon continues the amlodipine (12) Dizziness Is this a current diagnosis for this admission?: Yes Plan: We will check the orthostatic blood pressures Patients get a benefit from the Holter monitor as outpatient Discontinues the metoprolol - Time Time Spent: 50 to 70 Minutes Medications reviewed and adjusted accordingly: Yes Anticipated discharge: Home Within: Other - Inpatient Certification Based on my medical assessment, after consideration of the patient's comorbidities, presenting symptoms, or acuity I expect that the services needed warrant INPATIENT care.: Yes I certify that my determination is in accordance with my understanding of Medicare's requirements for reasonable and necessary INPATIENT services [42 CFR 412.3e].: Yes Medical Necessity: Significant Comorbidiites Make Outpatient Treatment Too Risky, Need Close Monitoring Due to Risk of Patient Decompensation, Need For IV Fluids Post Hospital Care: D/C Bookkeeping Assistant Documentation - Plan Summary Plan Summary: See MD orders
[2018-10-25] MEDS: GABAPENTIN 300 MG CAPSULE PO SCH ×2 (14:21→21:49)
[2018-10-25] MEDS: BUSPIRONE HCL 10 MG TABLET PO SCH ×2 (14:22→21:47)
[2018-10-25] MEDS ORDERED: OXYCODONE HCL IR 5 MG TABLET PO ONE (21:00)
[2018-10-25] MEDS ORDERED: ATORVASTATIN CALCIUM 10 MG TABLET PO SCH (22:00)
[2018-10-25] MEDS: AMLODIPINE BESYLATE 2.5 MG TABLET PO SCH (22:00)
[2018-10-26] MEDS: ACETAMINOPHEN 325 MG TABLET PO PRN ×2 (02:40→10:21)
[2018-10-26] MEDS: GABAPENTIN 300 MG CAPSULE PO SCH (06:05)
[2018-10-26] MEDS: BUSPIRONE HCL 10 MG TABLET PO SCH (06:05)
[2018-10-26] MEDS: PANTOPRAZOLE SODIUM 40 MG TABLET.DR PO SCH (06:06)
[2018-10-26 07:44] LABS: ANION GAP 8 (5-19); BLOOD UREA NITROGEN 14 mg/dL (7-20); CALCIUM 9.1 mg/dL (8.4-10.2); CARBON DIOXIDE 23 mmol/L (22-30); CHLORIDE 109 mmol/L (98-107); GLUCOSE 112 mg/dL (75-110); POTASSIUM 3.9 mmol/L (3.6-5.0)
[2018-10-26 08:21] VITALS: BP 108/73
[2018-10-26] MEDS ORDERED: (PENDING PHARMACY ID) (Fluoxetine Hcl [Fluoxetine Hcl] 80 MG) PO SCH (10:00)
[2018-10-26] MEDS ORDERED: (PENDING PHARMACY ID) (Esomeprazole Magnesium [Esomeprazole Magnesium] 40 MG) PO SCH (10:00)
[2018-10-26] MEDS ORDERED: FLUOXETINE HCL 20 MG CAPSULE PO SCH (10:00)
[2018-10-26] MEDS ORDERED: TAMSULOSIN HCL 0.4 MG CAP.SR.24H PO SCH (10:00)
[2018-10-26] MEDS ORDERED: PANTOPRAZOLE SODIUM 40 MG TABLET.DR PO SCH (10:00)
[2018-10-26] MEDS: AMLODIPINE BESYLATE 2.5 MG TABLET PO SCH (10:19)
[2018-10-26] MEDS: ENOXAPARIN SODIUM INJ 40 MG/0.4 ML DISP.SYRIN SUBCUT SCH (10:20)
--- NOTE | 2018-10-26 11:05 | PDOC DISCHARGE SUMMARY ---
General - Admit/Disc Date/PCP Admission Date/Primary Care Provider: 10/24/18 23:40 KAY BRUSH MD Discharge Date: 10/26/18 - Discharge Diagnosis (1) Acute encephalopathy Is this a current diagnosis for this admission?: Yes Summary: Most likely due to the multiple drugs we will discontinues to all the pain medications right now discontinued several psych medications Follow with the psych and the pain management next week for further adjustment of the medications (2) Altered mental status Is this a current diagnosis for this admission?: Yes Summary: Due to the multiple medications with the psych and the pain management Patient is completely on a baseline's Patient MRI of the head on all metabolic blood work is negative's (3) Polypharmacy Is this a current diagnosis for this admission?: Yes (4) BPH (benign prostatic hypertrophy) Is this a current diagnosis for this admission?: Yes Summary: Continues to Flomax (5) Bipolar disorder Is this a current diagnosis for this admission?: Yes Summary: Continues to BuSpar and continues the Prozac other medicines currently hold follow psych next week (6) COPD (chronic obstructive pulmonary disease) Is this a current diagnosis for this admission?: Yes (7) Chronic back pain Is this a current diagnosis for this admission?: Yes Summary: Cussed with the patient is to use only PRN pain medication and follow with the pain management (8) Chronic pain syndrome Is this a current diagnosis for this admission?: Yes (9) Continuous tobacco abuse Is this a current diagnosis for this admission?: Yes (10) Hyperlipidemia Is this a current diagnosis for this admission?: Yes Summary: Currently all stable (11) Hypertension Is this a current diagnosis for this admission?: Yes Summary: Patient's blood pressures under control running lower side currently di scontinues the beta-brandon continues the lisinopril which probably patients make a dizzy sometimes continues to a norvasc as needed (12) Dizziness Is this a current diagnosis for this admission?: Yes Summary: Due to the medications currently all resolved - Additional Information Discharge Diet: Regular Discharge Activity: Activity As Tolerated Home Medications: Atorvastatin Calcium [Lipitor 10 mg Tablet] 10 mg PO QHS 03/22/18 Baclofen [Baclofen 10 mg Tablet] 10 mg PO Q6HP PRN 03/22/18 Buspirone HCl [Buspar 15 mg Tablet] 15 mg PO Q8 03/22/18 Esomeprazole Magnesium 40 mg PO DAILY 03/22/18 Fenofibrate Nanocrystallized [Tricor 145 mg Tablet] 145 mg PO QHS 03/22/18 Fluoxetine HCl 80 mg PO DAILY 03/22/18 Gabapentin [Neurontin 300 mg Capsule] 300 mg PO Q8 03/22/18 Tamsulosin HCl [Flomax 0.4 mg Cap.sr] 0.4 mg PO DAILY 03/22/18 Albuterol Sulfate [Albuterol Sulfate Hfa] 2 puff IH Q6HP PRN 07/26/18 Amlodipine Besylate [Norvasc 2.5 mg Tablet] 2.5 mg PO Q12 07/26/18 History of Present Illness History of Present Illness: DONALD GARRIDO is a 43 year oldThieladio is a 43-year-old male with a significant history of the COPD hypertension hyperlipidemia history of bipolar disorder and history of the chronic back pain and chronic pain syndrome currently see pain management and a psychiatrist with the multiple medications for that chronic smoker came to the emergency department because of the patient Martin call the EMS because of the altered mental status and patient is talking to his head EMS noticed dyskinesia And given Benadryl And ER provider not in HPI I do not see any kind of but that but in the ER patient had a CT of the head was done was negative all blood work was negative's urine drug screen was negative's and patients pretty much with what he is in the baseline but ER provider was concerned about altered mental status wants to me admit When I saw the patient is fully alert awake oriented x4 patient does not have a no confusions patient does not aware About any kind of a confusion but he was talking to his ahead probably underlying bipolar disorders Patient at this point MRI of the head was done to rule out other neurological symptoms which is negative's because patient was complaining some dizziness Patient's blood pressure medicines was currently readjusted giving IV fluid and will wait for the psych consult before the discharge the patient's Is medically currently stable is no any sign of infections There is no sign of any overdose There is no sign of any neurological symptoms corporate learning consultant is all stable Hospital Course Hospital Course: This is a 43-year-old male's with the multiple medical problem as above presented the emergency department with the altered mental status patient have a dyskinesia I believe patient is taking multiple psych drugs patients at this point initial work-up is all negative's patient received a benadryl When I saw the patient's pretty much patients back to the baseline's Patient's MRI of the head is negative's Patient's all blood work is negative's Also noticed the patient's blood pressure in the lower end discontinues a couple of blood pressure medications patients feel better and patient's dizziness is all improved I think patients taking the multiple psych and pain medications which makes the patient's more confused suggest at this point to hold the medications follow the psych Discussed with the patient Martin regarding the patient's current conditions Patient is walking the hallway without any problems Patient's p.o. intake is good Physical Exam Vital Signs: Temp Pulse Resp BP Pulse Ox 98.4 F 74 16 108/73 94 10/26/18 07:34 10/26/18 07:34 10/26/18 07:34 10/26/18 07:34 10/26/18 07:34 Intake & Output 10/25/18 10/26/18 10/27/18 06:59 06:59 06:59 Intake Total 1000 1521 Output Total 350 Balance 1000 1171 Weight 108.4 kg 109.8 kg General appearance: PRESENT: no acute distress, well-developed, well-nourished Head exam: PRESENT: atraumatic, normocephalic Eye exam: PRESENT: conjunctiva pink, EOMI, PERRLA. ABSENT: scleral icterus Ear exam: PRESENT: normal external ear exam Mouth exam: PRESENT: moist, tongue midline Neck exam: PRESENT: full ROM. ABSENT: carotid bruit, JVD, lymphadenopathy, thyromegaly Respiratory exam: PRESENT: clear to auscultation wan Cardiovascular exam: PRESENT: RRR. ABSENT: diastolic murmur, rubs, systolic murmur Pulses: PRESENT: normal dorsalis pedis pul, +2 pedal pulses bilateral Vascular exam: PRESENT: normal capillary refill GI/Abdominal exam: PRESENT: normal bowel sounds, soft. ABSENT: distended, guarding, mass, organolmegaly, rebound, tenderness Rectal exam: PRESENT: deferred Musculoskeletal exam: PRESENT: ambulatory Neurological exam: PRESENT: alert, awake, oriented to person, oriented to place, oriented to time, oriented to situation, CN II-XII grossly intact. ABSENT: motor sensory deficit Psychiatric exam: PRESENT: appropriate affect, normal mood. ABSENT: homicidal ideation, suicidal ideation Skin exam: PRESENT: dry, intact, warm. ABSENT: cyanosis, rash Results Laboratory Results: 10/25/18 07:23 10/26/18 07:15 10/26/18 07:15 Sodium 139.9 Potassium 3.9 Chloride 109 H Carbon Dioxide 23 Anion Gap 8 BUN 14 Creatinine 0.84 Est GFR ( Amer) > 60 Glucose 112 H Calcium 9.1 10/24/18 10/24/18 18:20 18:20 Creatine Kinase 122 Troponin I < 0.012 Impressions: Chest X-Ray 10/24/18 19:36 IMPRESSION: NO ACUTE FINDINGS. Head CT 10/24/18 19:37 IMPRESSION: NO ACUTE INTRACRANIAL FINDINGS. EVIDENCE OF ACUTE STROKE: NO. Head MRI 10/25/18 00:00 IMPRESSION: No acute findings. Infrequent periventricular and subcortical white matter lesions most likely related to small vessel disease. EVIDENCE OF ACUTE STROKE: NO. Qualifiers - * PATIENT BEING DISCHARGED WITH ANY OF THE FOLLOWING DIAGNOSIS: No Acute Heart Failure - Is this a Heart Failure Patient?: No Plan Time Spent: Greater than 30 Minutes - Follow in office in 1 week Follow-up with the psych and the pain management
== END 2018-10-26 12:15 | disposition home or self-care (01) ==
LOC: ER 18:12 → OBSVTOIN 23:40 → INTOOBSV 23:40 → EH 23:40 → 4N 10-25 01:25
PROVIDERS: ADMIT Family Medicine; ATTEND Family Medicine
DX: G93.40 Encephalopathy, unspecified (principal); R41.82 Altered mental status, unspecified; N40.0 Benign prostatic hyperplasia without lower urinary tract symptoms; F31.9 Bipolar disorder, unspecified; J42 Unspecified chronic bronchitis; M54.5 Low back pain; G89.4 Chronic pain syndrome; E78.5 Hyperlipidemia, unspecified; I10 Essential (primary) hypertension; R42 Dizziness and giddiness; G24.9 Dystonia, unspecified; F41.1 Generalized anxiety disorder; F17.210 Nicotine dependence, cigarettes, uncomplicated; F20.9 Schizophrenia, unspecified; Z82.49 Family history of ischemic heart disease and other diseases of the circulatory system; Z79.899 Other long term (current) drug therapy
CPT/HCPCS: 93005; 99285; 36415 ×3; 87040; 82962; 80307 ×4; 82140; 82550; 83690; 83735; 85025 ×2; 80048 ×2; 80053; 81001; 84484; 83605; 70551; 71045; 70450; 93010; 97116; 97161; G0378 ×2; A9270 ×11; J1650; J7030; J3490

== ENCOUNTER 2018-11-24 13:23 | Inpatient (IN) | payer MEDICARE, MEDICAID ==
[~2018-11-24 13:23] MED LIST: ROCURONIUM BROMIDE INJ 50 MG/5 ML VIAL IV ONE; SUCCINYLCHOLINE CHLORIDE INJ 200 MG/10 ML VIAL ONE
--- NOTE | 2018-11-24 13:53 | ER Document Report ---
ED General - General Stated Complaint: ALTERED MENTAL STATUS Time Seen by Provider: 11/24/18 13:42 Primary Care Provider: KAY BRUSH MD [Primary Care Provider] - Follow up as needed TRAVEL OUTSIDE OF THE [place] IN LAST 30 DAYS: No - HPI Notes: This is a 43-year-old male that presents via rescue for evaluation of altered mental status and tachypnea. Patient has a history of chronic opioid use for which she is on a pain contract for. According to EMS report given to the nurses in the ED, patient was found by his significant other nonverbal and unresponsive to verbal stimuli. However EMS reported that the patient is responsive to painful stimuli. Pt was seen here a month ago for similar altered mental status. pt has a psych hx and h/o sepsis per ems and nursing report. Patient has a medical history significant for DVT prophylaxis, acute cholecystitis, tobacco abuse, full CODE STATUS, chronic back pain, reflux, anxiety and depression, acute cholecystitis with chronic cholecystitis, fluid overload, sepsis, pneumonia, respiratory failure, acute hypoxemic respiratory failure, hyponatremia, bipolar disorder, hypokalemia, altered mental status, airway aspiration, rhabdomyolysis, DVT of right upper extremity, COPD exacerbation. Patient also has a history of acute encephalopathy, polypharmacy, schizophrenia, hypertension acute renal injury, acute renal failure and dehydration as well as elevated lipase. Patient is known to be allergic to iodine, shellfish, and clonazepam. Differential diagnosis: Aspiration pneumonia, traumatic fall, nasal fracture, alcohol abuse, opioid abuse, electrolyte abnormality, occult head trauma. Plan: Given patient's recent history of sepsis and concern for aspiration pneumonia, will start sepsis work-up. Will keep patient on monitor watch for decline or sudden changes in mental status and intervene appropriately. - Related Data Allergies/Adverse Reactions: iodine [Iodine] Allergy (Intermediate, Verified 11/24/18 14:10) Blisters Shellfish * [Shellfish] Allergy (Intermediate, Verified 11/24/18 14:10) Blisters clonazepam [From Klonopin] Allergy (Verified 11/24/18 14:10) Blisters Past Medical History - Social History Smoking Status: Smoker,Current Status Unk Family History: Hypertension - Past Medical History Cardiac Medical History: Reports: Hx Hypercholesterolemia, Hx Hypertension Denies: Hx Coronary Artery Disease, Hx Heart Attack Pulmonary Medical History: Reports: Hx COPD - not on home o2 Denies: Hx Asthma, Hx Bronchitis, Hx Pneumonia Neurological Medical History: Denies: Hx Cerebrovascular Accident, Hx Seizures Renal/ Medical History: Reports: Hx Renal Insufficiency. Denies: Hx Peritoneal Dialysis GI Medical History: Reports: Hx Gastroesophageal Reflux Disease Musculoskeletal Medical History: Denies Hx Arthritis, Reports Hx Musculoskeletal Deformity, Reports Hx Musculoskeletal Trauma Skin Medical History: Reports Hx Cellulitis, Reports Hx MRSA Psychiatric Medical History: Reports: Hx Bipolar Disorder, Hx Depression, Hx Schizophrenia Infectious Medical History: Reports: Hx MRSA Past Surgical History: Reports: Hx Cholecystectomy, Hx Oral Surgery, Hx Orthopedic Surgery - 9 back surgeries, with lower abdominal midline incision. - Immunizations Immunizations up to date: Yes Hx Diphtheria, Pertussis, Tetanus Vaccination: Yes Hx Pneumococcal Vaccination: 02/06/00 Review of Systems - Review of Systems -: Yes ROS unobtainable due to patient's medical condition Physical Exam - Vital signs Vitals: Temp Pulse Ox 97.5 F 85 L 11/24/18 13:23 11/24/18 13:23 - Notes Notes: PHYSICAL EXAMINATION: GENERAL: Mental status is altered, patient is responsive to painful stimuli only. Patient is currently protecting his airway without intervention upon arrival. Patient appears disheveled and global mental status seems depressed there are no focal neurologic findings at time of presentation. HEAD: Atraumatic, normocephalic. EYES: Eyelids are closed. When eyelids are raised mainly by this MD, pupils are found to be equally dilated and are sluggishly responsive to light, sclera anicteric, conjunctiva are normal. ENT: nares patent, a small amount of dried blood is noted in the left nare. No gross facial deformity is appreciated, oropharynx is edentulous and no signs of intraoral trauma, vomitus or blood are noted. Moist mucous membranes. NECK: No crepitus or step-off, supple without lymphadenopathy, trachea is midline LUNGS: Lung field is significant for diffuse rhonchi in the upper field. Right lung field sounds grossly clear on auscultation. There is no crepitus or subcu emphysema noted HEART: Tachycardic, no rubs, gallops, murmurs ABDOMEN: Soft, nontender, hypoactive bowel sounds. No guarding, no rebound. No masses appreciated. EXTREMITIES: No deformities noted, no pitting or edema. No cyanosis. NEUROLOGICAL: GCS 7 upon arrival, pt protecting airway upon arrival. PSYCH:unable to assess mood or affect. SKIN: Warm, Dry, normal turgor, no rashes or lesions noted. Course - Re-evaluation Re-evalutation: 11/24/18 16:48 This MD was called to the bedside of the patient's room at 1450 hrs. because he had begun to vomit repeatedly. Patient's mental status remained depressed. This MD made the decision to move the patient into a trauma room and perform rapid sequence intubation. See procedure section for details on intubation. Intubation was performed successfully with post ET tube placement chest x-ray being found to be adequate. Patient was put on PRVC with 100% O2, 14 of PEEP, 10 of pressure support, respiratory rate of 12, and a tidal volume 600. Head CT was ordered that showed no evidence of acute intracranial injury. Patient was given fentanyl and vecuronium to keep him comfortable and sedated after intu bation. Post intubation vital signs found to be reassuring in this MD's opinion. This MD consulted Dr. Beckett, in house network systems analyst. He agreed to come see the patient in the ED and admit him. - Vital Signs Vital signs: Temp Pulse Resp BP Pulse Ox 97.5 F 126 H 12 142/90 H 92 11/24/18 13:23 11/24/18 13:32 11/24/18 16:46 11/24/18 16:46 11/24/18 16:46 Vital signs reviewed by this MD. - Laboratory Result Diagrams: 11/24/18 13:00 11/24/18 13:00 Laboratory results interpreted by me: 11/24/18 11/24/18 11/24/18 13:00 13:00 13:00 WBC 13.3 H RBC 5.65 H RDW 15.9 H VBG pH Glucose 120 H Urine Urobilinogen Salicylates < 1.0 L 11/24/18 11/24/18 14:10 15:26 WBC RBC RDW VBG pH 7.21 L Glucose Urine Urobilinogen 2.0 H Salicylates Lab results reviewed by this MD. - Diagnostic Test Radiology reviewed: Reports reviewed - EKG Interpretation by Me Additional EKG results interpreted by me: 11/24/18 16:54 EKG performed at 1329 hrs. on 11/24/2018 was reviewed by this MD. EKG shows sinus tachycardia with a rate of 113, left axis deviation is present P waves appear to proceed QRS complexes, QRS complexes appear narrow, ST segments appear nonspecific. Impression sinus tachycardia with nonspecific ST segments. - Consults dr. beckett, network systems analyst Time consulted: 16:17 Reason for consultation: 11/24/18 16:57 Patient intubated with episodes of hypoxemia, vomiting, inability to protect airway Consulted provider: will come to ER Procedures - Intubation Orotracheal Time of Intubation: 15:16 Airway evaluation: Obese, Other - Patient is completely edentulous, has a large tongue and a thick neck Mallampati Classification: Class 4 Medications: Etomidate, Succinylcholine Intubation method: Orotracheal Blade type: Ronaldo Blade size: 4 Equipment used: Glidescope ETT size: 8.0 ETT secured at: Lips ETT secured at (cm): 23 Breath Sounds after Intubation: Equal End tidal CO2 confirmed: Yes Tidal volume: 600 FiO2: 100 Respirations: 12 Pressure support: 10 PEEP: 14 Post Intubation Xray: Yes - ADEQUATE ETT PLACEMENT PER RADIOLOGIST READ. (Zain CHINCHILLA). Intubation Complications: Oral-unsuccessful attempt - FIRST ATTEMPT WITH 4 MAC UNSUCCESSFUL; NO COLOR CHANGE ON END TIDAL CO2. SECOND ATTEMPT WITH GLIDOSCOPE SUCCESSFUL. Critical Care Note - Critical Care Note Total time excluding time spent on procedures (mins): 60 Comments: 17 MINUTES SPENT ON PREPARATION AND PERFORMANCE OF INTUBATION Discharge - Discharge Clinical Impression: Hypoxia, Altered mental status, unspecified, Aspiration into airway Condition: Critical Disposition: ADMITTED INPATIENT Admitting Provider: DR BECKETT, [facility] - ACCEPTED PT AT 1617 Unit Admitted: ICU Referrals: KAY BRUSH MD [Primary Care Provider] - Follow up as needed
[2018-11-24] MEDS ORDERED: NORMAL SALINE IV ONE (14:26)
[2018-11-24 14:41] LABS: CREATINE KINASE MB 2.45 ng/mL (<4.55)
[2018-11-24 14:44] LABS: INTERNATIONAL RATION (INR) 0.99; PROTHROMBIN TIME 13.1 SEC (11.4-15.4); TROPONIN I < 0.012 ng/mL
[2018-11-24 14:45] LABS: ABSOLUTE BASOPHILS # (AUTO) 0.1 10^3/uL (0.0-0.2); ABSOLUTE EOSINOPHILS # (AUTO) 0.1 10^3/uL (0.0-0.6); ABSOLUTE LYMPHOCYTES (AUTO) 4.1 10^3/uL (0.5-4.7); BASOPHILS % (AUTO) 0.6 % (0-2); EOSINOPHILS % (AUTO) 0.9 % (0-6); HEMATOCRIT 47.7 % (37.9-51.0); HEMOGLOBIN 15.7 g/dL (13.5-17.0); LYMPHOCYTES % (AUTO) 30.9 % (13-45); MEAN CORPUSCULAR HEMOGLOBIN 27.8 pg (27.0-33.4); MEAN CORPUSCULAR VOLUME 84 fl (80-97); MONOCYTES % (AUTO) 7.8 % (3-13); RED BLOOD COUNT 5.65 10^6/uL (4.35-5.55); RED CELL DISTRIBUTION WIDTH 15.9 % (11.5-14.0); SEGMENTED NEUTROPHILS % (AUTO) 59.8 % (42-78); TOTAL CELLS COUNTED % (AUTO) 100 %; WHITE BLOOD COUNT 13.3 10^3/uL (4.0-10.5)
[2018-11-24 14:46] LABS: APPEARANCE,URINE CLEAR; BILIRUBIN,URINE NEGATIVE (NEGATIVE); COLOR,URINE YELLOW; GLUCOSE, URINE NEGATIVE (NEGATIVE); KETONES,URINE NEGATIVE (NEGATIVE); PROTEIN,URINE NEGATIVE (NEGATIVE); URINE SPECIFIC GRAVITY 1.013
[2018-11-24] MEDS ORDERED: ONDANSETRON HCL INJ/PF 4 MG/2 ML SDV ONE (15:01)
[2018-11-24 15:04] LABS: PLATELET COUNT 231 10^3/uL (150-450)
[2018-11-24] MEDS ORDERED: NALOXONE HCL INJ/PF 0.4 MG/1 ML SDV ONE (15:04)
[2018-11-24] MEDS ORDERED: ETOMIDATE INJ/PF 20 MG/10 ML SDV IV ONE ×2 (15:06→16:01)
--- NOTE | 2018-11-24 15:22 | RADIOLOGY REPORT (SQ) ---
EXAM DESCRIPTION: CHEST SINGLE VIEW COMPLETED DATE/TIME: 11/24/2018 3:07 pm REASON FOR STUDY: SOB, wheezing lung sounds, unresponsiveness COMPARISON: 10/24/2018. NUMBER OF VIEWS: One view. TECHNIQUE: Single frontal radiographic view of the chest acquired. LIMITATIONS: None. FINDINGS: LUNGS AND PLEURA: No opacities, masses or pneumothorax. No pleural effusion. MEDIASTINUM AND HILAR STRUCTURES: No masses. Contour normal. HEART AND VASCULAR STRUCTURES: Heart enlarged without failure. Normal vasculature. BONES: No acute findings. HARDWARE: None in the chest. OTHER: No other significant finding. IMPRESSION: HEART ENLARGED WITHOUT FAILURE. NO OTHER SIGNIFICANT RADIOGRAPHIC FINDING IN THE CHEST. TECHNICAL DOCUMENTATION: JOB ID: [id number] [employer]- All Rights Reserved Reading location - IP/workstation name: [email or web address]
[2018-11-24 15:27] LABS: ALBUMIN 4.5 g/dL (3.5-5.0); ALKALINE PHOSPHATASE 82 U/L (38-126); ANION GAP 12 (5-19); ASPARTATE AMINO TRANSFERASE 23 U/L (17-59); BILIRUBIN,DIRECT 0.1 mg/dL (0.0-0.4); BILIRUBIN,TOTAL 0.5 mg/dL (0.2-1.3); BLOOD UREA NITROGEN 15 mg/dL (7-20); CALCIUM 9.6 mg/dL (8.4-10.2); CARBON DIOXIDE 23 mmol/L (22-30); CHLORIDE 106 mmol/L (98-107); GLUCOSE 120 mg/dL (75-110); POTASSIUM 4.4 mmol/L (3.6-5.0); TOTAL PROTEIN 7.4 g/dL (6.3-8.2)
[2018-11-24 15:43] LABS: VENOUS BLOOD BASE EXCESS -5.8 mmol/L; VENOUS BLOOD HCO3 23.1 mmol/L (20-32); VENOUS BLOOD PCO2 58.5 mmHg (35-63); VENOUS BLOOD PH 7.21 (7.30-7.42)
--- NOTE | 2018-11-24 15:55 | RADIOLOGY REPORT (SQ) ---
EXAM DESCRIPTION: CT HEAD WITHOUT COMPLETED DATE/TIME: 11/24/2018 3:47 pm REASON FOR STUDY: ams COMPARISON: 10/24/2018. TECHNIQUE: Axial images acquired through the brain without intravenous contrast. Images reviewed wi th bone, brain and subdural windows. Additional sagittal and coronal reconstructions were generated. Images stored on PACS. All CT scanners at this facility use dose modulation, iterative reconstruction, and/or weight based d osing when appropriate to reduce radiation dose to as low as reasonably achievable (ALARA). [facility]: Dose Right [facility]: CareDose [facility]: Dose Right [facility]: Teradose 4D [facility]: Smart Technologies RADIATION DOSE: CT Rad equipment meets quality standard of care and radiation dose reduction techniq ues were employed. CTDIvol: 53.2 mGy. DLP: 1097 mGy-cm. mGy. LIMITATIONS: None. FINDINGS: VENTRICLES: Normal size and contour. CEREBRUM: No masses. No hemorrhage. No midline shift. No evidence for acute infarction. Normal gra y/white matter differentiation. No areas of low density in the white matter. CEREBELLUM: No masses. No hemorrhage. No alteration of density. No evidence for acute infarction. EXTRAAXIAL SPACES: No fluid collections. No masses. ORBITS AND GLOBE: No intra- or extraconal masses. Normal contour of globe without masses. CALVARIUM: No fracture. PARANASAL SINUSES: No fluid or mucosal thickening. SOFT TISSUES: No mass or hematoma. OTHER: No other significant finding. IMPRESSION: NORMAL BRAIN CT WITHOUT CONTRAST. EVIDENCE OF ACUTE STROKE: NO. COMMENT: Quality ID # [id number]: Final reports with documentation of one or more dose reduction techniques (e.g., Automated exposure control, adjustment of the mA and/or kV according to patient size, use of iterative reconstruction technique) TECHNICAL DOCUMENTATION: JOB ID: [id number] [employer]- All Rights Reserved Reading location - IP/workstation name: [email or web address]
--- NOTE | 2018-11-24 15:57 | RADIOLOGY REPORT (SQ) ---
EXAM DESCRIPTION: CHEST SINGLE VIEW COMPLETED DATE/TIME: 11/24/2018 3:48 pm REASON FOR STUDY: ett placement COMPARISON: 11/24/2018 at 1456 hours. NUMBER OF VIEWS: One view. TECHNIQUE: Single frontal radiographic view of the chest acquired. LIMITATIONS: None. FINDINGS: LUNGS AND PLEURA: No opacities, masses or pneumothorax. No pleural effusion. MEDIASTINUM AND HILAR STRUCTURES: No masses. Contour normal. HEART AND VASCULAR STRUCTURES: Heart enlarged without failure. Normal vasculature. BONES: No acute findings. HARDWARE: Endotracheal tube, tip located 4 cm proximal to the eva. Nasogastric tube, tip in the m idesophagus. OTHER: No other significant finding. IMPRESSION: TIP OF THE NASOGASTRIC TUBE IS IN THE MID ESOPHAGUS AND NEEDS TO BE ADVANCED. ENDOTRACH EAL TUBE APPEARS TO BE IN SATISFACTORY POSITION. TECHNICAL DOCUMENTATION: JOB ID: [id number] [employer]- All Rights Reserved Reading location - IP/workstation name: [email or web address]
[2018-11-24] MEDS ORDERED: VECURONIUM BROMIDE INJ 10 MG VIAL IV ONE (16:01)
[2018-11-24] MEDS ORDERED: SUCCINYLCHOLINE CHLORIDE INJ 200 MG/10 ML VIAL IV ONE (16:01)
[2018-11-24] MEDS ORDERED: ONDANSETRON HCL INJ/PF 4 MG/2 ML SDV IV ONE (16:01)
[2018-11-24] MEDS ORDERED: FENTANYL CITRATE INJ/PF 100 MCG/2 ML AMPUL IV PRN (16:04)
[2018-11-24] MEDS ORDERED: IPRATROPIUM/ALBUTEROL 0.5-2.5 MG/3 ML AMPUL NEB PRN (16:32)
[2018-11-24] MEDS ORDERED: ACETAMINOPHEN 325 MG TABLET PO PRN (16:32)
[2018-11-24] MEDS ORDERED: ONDANSETRON HCL INJ/PF 4 MG/2 ML SDV IV PRN (16:32)
[2018-11-24 16:39] LABS: ALCOHOL < 10 mg/dL (NONE DETECTED); SALICYLATE < 1.0 mg/dL (2.0-20.0)
[2018-11-24] MEDS ORDERED: PROPOFOL 1,000 MG/100 ML INFUS..BTL IV PRN (16:43)
[2018-11-24] MEDS ORDERED: HYDROMORPHONE HCL INJ/PF 2 MG/ML AMPULE IV PRN (16:44)
[2018-11-24 16:45] LABS: URINE AMPHETAMINES SCREEN NEGATIVE; URINE BARBITURATES SCREEN NEGATIVE; URINE BENZODIAZEPINES SCREEN NEGATIVE; URINE COCAINE SCREEN NEGATIVE; URINE MARIJUANA (THC) SCREEN NEGATIVE; URINE METHADONE SCREEN NEGATIVE; URINE PHENCYCLIDINE SCREEN NEGATIVE
[2018-11-24] MEDS ORDERED: PHARMACY COMMUNICATION ORDER MC NR (16:45)
[2018-11-24] MEDS ORDERED: ENOXAPARIN SODIUM INJ 40 MG/0.4 ML DISP.SYRIN SUBCUT ONE (17:00)
[2018-11-24] MEDS ORDERED: FAMOTIDINE 20 MG TABLET PO ONE (17:00)
--- NOTE | 2018-11-24 17:12 | CRITICAL CARE ADMISSION REPORT ---
HPI Date:: 11/24/18 Time:: 16:30 Reason for ICU Reason:: Intubated unintentional OD. HPI: This patient is a 43 yo man found by girlfriend unresponsive to all but pain. He was brought to the ED in same condition and vomited with presumed aspiration. He had similar but not as dramatic a presentation lest month with a similar tox screen that is essentially negative. He is currently on 80% FIO2, PEEP 10, with O2 saturations of 92-92%. Allow him to wake up and extubate when stable. His medication list does not include narcotics so this is not complete. He has had no documented hypoxia. Even after aspiration his O2 saturation was said to be in the mid 80s at the lowest. With a screen negative for testable narcotics, narcan is not indicated. History obtained from:: Old records and ED doctor - Diagnosis/Plan (1) Overdose Qualifiers: Encounter type: initial encounter Injury intent: accidental or unintentional Qualified Code(s): T50.901A - Poisoning by unspecified drugs, medicaments and biological substances, accidental (unintentional), initial encounter Is this a current diagnosis for this admission?: Yes Plan: This is the working diagnosis given his history. However given his negative toxicology screen, untestble narcotics or substances that are not screened are possibility. Plan to let him recover on his own. Head CT negative for trauma, bleed, stroke. (2) Aspiration into airway Qualifiers: Encounter type: initial encounter Qualified Code(s): T17.908A - Unspecified foreign body in respiratory tract, part unspecified causing other injury, initial encounter Is this a current diagnosis for this admission?: Yes Plan: He vomited in a condition to not protect his airway. His mild desaturation occured right after this. He may have done this before arrival as well. His ventilator settings supprot this. Supportive care and no need for antibiotics. (3) Hypoxia Is this a current diagnosis for this admission?: Yes Plan: Never any documented hypoxia down below mid 80s. (4) Acute encephalopathy Is this a current diagnosis for this admission?: Yes Plan: Allow to wake up naturally. (5) BPH (benign prostatic hypertrophy) Qualifiers: Lower urinary tract symptom detail: unspecified Is this a current diagnosis for this admission?: Yes Plan: He has a schwarz. Continue flomax (6) COPD (chronic obstructive pulmonary disease) Qualifiers: COPD type: chronic bronchitis Chronic bronchitis type: unspecified Qualified Code(s): J42 - Unspecified chronic bronchitis Is this a current diagnosis for this admission?: Yes Plan: This may be contributing to his need for 80% FIO2. Past Medical History Cardiac Medical History: Reports: Hyperlipidema, Hypertension Denies: Coronary Artery Disease, Myocardial Infarction Pulmonary Medical History: Reports: Chronic Obstructive Pulmonary Disease (COPD) - not on home o2 Denies: Asthma, Bronchitis, Pneumonia Neurological Medical History: Denies: Seizures GI Medical History: Reports: Gastroesophageal Reflux Disease Musculoskeltal Medical History: Denies: Arthritis Psychiatric Medical History: Reports: Bipolar Disorder, Depression Hematology: Denies: Anemia Infectious Medical History: Reports: Methicillin-Resistant Staph Aureus Past Surgical History Past Surgical History: Reports: Cholecystectomy, Orthopedic Surgery - 9 back surgeries, with lower abdominal midline incision. Social/Family History - Social History Smoking Status: Unknown if Ever Smoked Frequency of Alcohol Use: Heavy Hx Recreational Drug Use: Yes Drugs: Marijuana Hx Prescription Drug Abuse: Yes - Medication/Allergies Home Medications: Atorvastatin Calcium [Lipitor 10 mg Tablet] 10 mg PO QHS 03/22/18 Baclofen [Baclofen 10 mg Tablet] 10 mg PO Q6HP PRN 03/22/18 Buspirone HCl [Buspar 15 mg Tablet] 15 mg PO Q8 03/22/18 Esomeprazole Magnesium 40 mg PO DAILY 03/22/18 Fenofibrate Nanocrystallized [Tricor 145 mg Tablet] 145 mg PO QHS 03/22/18 Fluoxetine HCl 80 mg PO DAILY 03/22/18 Gabapentin [Neurontin 300 mg Capsule] 300 mg PO Q8 03/22/18 Tamsulosin HCl [Flomax 0.4 mg Cap.sr] 0.4 mg PO DAILY 03/22/18 Albuterol Sulfate [Albuterol Sulfate Hfa] 2 puff IH Q6HP PRN 07/26/18 Amlodipine Besylate [Norvasc 2.5 mg Tablet] 2.5 mg PO Q12 07/26/18 Allergies/Adverse Reactions: iodine [Iodine] Allergy (Intermediate, Verified 11/24/18 14:10) Blisters Shellfish * [Shellfish] Allergy (Intermediate, Verified 11/24/18 14:10) Blisters clonazepam [From Klonopin] Allergy (Verified 11/24/18 14:10) Blisters Review of Systems ROS unobtainable: Due to endotracheal tube Physical Exam Vital Signs: Temp Pulse Resp BP Pulse Ox 97.5 F 126 H 12 142/90 H 92 11/24/18 13:23 11/24/18 13:32 11/24/18 16:46 11/24/18 16:46 11/24/18 16:46 Intake & Output 11/23/18 11/24/18 11/25/18 06:59 06:59 06:59 Output Total 30 Balance -30 Weight 108.9 kg Weight/Height Weight 108.9 kg General appearance: PRESENT: no acute distress, disheveled Head exam: PRESENT: atraumatic Eye exam: PRESENT: conjunctiva pink, EOMI, PERRLA. ABSENT: scleral icterus Ear exam: PRESENT: normal external ear exam Mouth exam: PRESENT: moist, tongue midline Respiratory exam: PRESENT: rhonchi - Both bases. Cardiovascular exam: PRESENT: RRR Vascular exam: PRESENT: normal capillary refill GI/Abdominal exam: PRESENT: normal bowel sounds, soft, other - NG in place. ABSENT: distended, guarding, mass, organolmegaly, rebound, tenderness Rectal exam: PRESENT: deferred Gentrourinary exam: PRESENT: indwelling catheter Extremities exam: PRESENT: full ROM. ABSENT: calf tenderness, clubbing, pedal edema Neurological exam: PRESENT: altered Skin exam: PRESENT: dry, normal color Tubes/Lines: PRESENT: Endotracheal Tube Laboratory/Radiographs Laboratory Results: 11/24/18 13:00 11/24/18 13:00 11/24/18 11/24/18 11/24/18 13:00 13:00 13:47 WBC 13.3 H RBC 5.65 H Hgb 15.7 Hct 47.7 MCV 84 MCH 27.8 MCHC 33.0 RDW 15.9 H Plt Count 231 Seg Neutrophils % 59.8 VBG pH VBG pCO2 VBG HCO3 VBG Base Excess Sodium 140.7 Potassium 4.4 Chloride 106 Carbon Dioxide 23 Anion Gap 12 BUN 15 Creatinine 1.06 Est GFR ( Amer) > 60 Glucose 120 H Lactic Acid 1.5 Calcium 9.6 Total Bilirubin 0.5 AST 23 Alkaline Phosphatase 82 Total Protein 7.4 Albumin 4.5 Urine Color Urine Appearance Urine pH Ur Specific [place] Urine Protein Urine Glucose (UA) Urine Ketones Urine Blood 11/24/18 11/24/18 11/24/18 13:47 14:10 15:26 WBC RBC Hgb Hct MCV MCH MCHC RDW Plt Count Seg Neutrophils % VBG pH Cancelled 7.21 L VBG pCO2 Cancelled 58.5 VBG HCO3 Cancelled 23.1 VBG Base Excess Cancelled -5.8 Sodium Potassium Chloride Carbon Dioxide Anion Gap BUN Creatinine Est GFR ( Amer) Glucose Lactic Acid Calcium Total Bilirubin AST Alkaline Phosphatase Total Protein Albumin Urine Color YELLOW Urine Appearance CLEAR Urine pH 8.0 Ur Specific [place] 1.013 Urine Protein NEGATIVE Urine Glucose (UA) NEGATIVE Urine Ketones NEGATIVE Urine Blood NEGATIVE 11/24/18 11/24/18 13:00 13:00 Creatine Kinase 102 CK-MB (CK-2) 2.45 Troponin I < 0.012 Impressions: Head CT 11/24/18 15:38 IMPRESSION: NORMAL BRAIN CT WITHOUT CONTRAST. EVIDENCE OF ACUTE STROKE: NO. Chest X-Ray 11/24/18 15:39 IMPRESSION: TIP OF THE NASOGASTRIC TUBE IS IN THE MID ESOPHAGUS AND NEEDS TO BE ADVANCED. ENDOTRACHEAL TUBE APPEARS TO BE IN SATISFACTORY POSITION. Critical Time Critical Time (minutes): 40 -: The care of a critically ill patient is dynamic. This note represents a static moment in the admission process. orders and treatments may be given simulataneously and urgentl, and time is not food service sales representatives of the treatment process. This patient requires Critical Care secondary to life threating organ or limb dysfunction. Without the need for Critical Care services, the patient is at risk for increasid mortality and morbidity.
[2018-11-24] MEDS: NORMAL SALINE 1000 ML 1,000 ML IV PRN (18:21)
[2018-11-24 18:22] LABS: ARTERIAL BLOOD BASE EXCESS -6.3 mmol/L; ARTERIAL BLOOD FIO2 80%; ARTERIAL BLOOD H2CO3 1.57 mmol/L (1.05-1.35); ARTERIAL BLOOD HCO3 21.7 mmol/L (20-24); ARTERIAL BLOOD O2 SATURATION 81.9 % (94-98); ARTERIAL BLOOD PCO2 52.3 mmHg (35-45); ARTERIAL BLOOD PH 7.24 (7.35-7.45); ARTERIAL BLOOD TOTAL CO2 23.3 mmol/L (23-27)
[2018-11-24] MEDS ORDERED: NORMAL SALINE 1000 ML 1,000 ML IV ONE (19:00)
[2018-11-24 19:02] LABS: ARTERIAL BLOOD BASE EXCESS -5.9 mmol/L; ARTERIAL BLOOD H2CO3 1.44 mmol/L (1.05-1.35); ARTERIAL BLOOD HCO3 21.2 mmol/L (20-24); ARTERIAL BLOOD O2 SATURATION 85.7 % (94-98); ARTERIAL BLOOD PCO2 47.7 mmHg (35-45); ARTERIAL BLOOD PH 7.27 (7.35-7.45); ARTERIAL BLOOD PO2 57.3 mmHg (80-100); ARTERIAL BLOOD TOTAL CO2 22.7 mmol/L (23-27)
[2018-11-24 19:05] LABS: ARTERIAL BLOOD FIO2 100%
--- NOTE | 2018-11-24 19:19 | Progress Note ---
Provider Note Provider Note: Patient now in ICU. Lack of positive results on tox screen troubling as he is still not responding, pupils 4mm and not reactive and now showing episodes of myoclonus. Acidotic on ABG. Increse RR on vent. Check TSH, but also ethylene glycol and heavy metals. Working diagnosis is still OD, but myuclonus, pupils are indicative of anoxic damage or some other cause.
[2018-11-24] MEDS: HYDROMORPHONE HCL INJ/PF 2 MG/ML AMPULE IV PRN (20:34)
[2018-11-25] MEDS: NORMAL SALINE 1000 ML 1,000 ML IV PRN ×4 (01:56→23:05)
--- NOTE | 2018-11-25 02:15 | EKG REPORT ---
SEVERITY:- ABNORMAL ECG - SINUS TACHYCARDIA PROBABLE LEFT ATRIAL ABNORMALITY LAD, CONSIDER LAFB OR INFERIOR INFARCT BORDERLINE PROLONGED QT INTERVAL : Confirmed by: Margarita Kramer 25-Nov-2018 02:14:54
[2018-11-25 05:14] LABS: ABSOLUTE MONOCYTES (AUTO) 0.5 10^3/uL (0.1-1.4); ABSOLUTE NEUT (AUTO) 4.3 10^3/uL (1.7-8.2); BASOPHILS % (AUTO) 0.2 % (0-2); EOSINOPHILS % (AUTO) 0.8 % (0-6); LYMPHOCYTES % (AUTO) 17.7 % (13-45); MEAN CORPUSCULAR HEMOGLOBIN 28.1 pg (27.0-33.4); MEAN CORPUSCULAR HGB CONC 32.9 g/dL (32.0-36.0); MEAN CORPUSCULAR VOLUME 85 fl (80-97); MONOCYTES % (AUTO) 7.9 % (3-13); PLATELET COUNT 171 10^3/uL (150-450); RED CELL DISTRIBUTION WIDTH 16.3 % (11.5-14.0); SEGMENTED NEUTROPHILS % (AUTO) 73.4 % (42-78); TOTAL CELLS COUNTED % (AUTO) 100 %; WHITE BLOOD COUNT 5.9 10^3/uL (4.0-10.5)
[2018-11-25 05:21] LABS: HEMOGLOBIN 13.5 g/dL (13.5-17.0)
[2018-11-25 05:28] LABS: ANION GAP 9 (5-19); BLOOD UREA NITROGEN 17 mg/dL (7-20); CALCIUM 7.2 mg/dL (8.4-10.2); CARBON DIOXIDE 17 mmol/L (22-30); CHLORIDE 119 mmol/L (98-107); GLUCOSE 78 mg/dL (75-110); POTASSIUM 4.4 mmol/L (3.6-5.0)
[2018-11-25] MEDS: HYDROMORPHONE HCL INJ/PF 2 MG/ML AMPULE IV PRN (05:56)
[2018-11-25] MEDS ORDERED: INFLUENZA QUAD (6MOS+) 2019-20 VAC 0.5 ML SYR IM ONE (08:00)
[2018-11-25] MEDS ORDERED: THIAMINE HCL 100 MG, FOLIC ACID 1 MG in NORMAL SALINE 250 ML IV SCH (10:00)
[2018-11-25] MEDS: ENOXAPARIN SODIUM INJ 40 MG/0.4 ML DISP.SYRIN SUBCUT SCH (10:18)
[2018-11-25] MEDS: FAMOTIDINE 20 MG TABLET PO SCH ×2 (10:18→23:05)
[2018-11-25] MEDS: THIAMINE HCL 500 MG, FOLIC ACID 1 MG in NORMAL SALINE 250 ML IV SCH ×2 (10:19→23:05)
--- NOTE | 2018-11-25 10:37 | RADIOLOGY REPORT (SQ) ---
EXAM DESCRIPTION: CHEST SINGLE VIEW COMPLETED DATE/TIME: 11/25/2018 8:00 am REASON FOR STUDY: Follow up for 2 episodes of witnessed aspiration COMPARISON: 11/24/2018. EXAM PARAMETERS: NUMBER OF VIEWS: One view. TECHNIQUE: Single frontal radiographic view of the chest acquired. RADIATION DOSE: NA LIMITATIONS: None. FINDINGS: LUNGS AND PLEURA: Patchy airspace disease in the left lung base. Right lung clear. MEDIASTINUM AND HILAR STRUCTURES: No masses. Contour normal. HEART AND VASCULAR STRUCTURES: Heart normal in size. Normal vasculature. BONES: No acute findings. HARDWARE: Stable endotracheal tube. The distal end of the nasogastric tube is difficult to visualize . OTHER: No other significant finding. IMPRESSION: DEVELOPING AIRSPACE DISEASE IN THE LEFT LUNG BASE CONCERNING FOR PNEUMONIA, POSSIBLY REL ATED TO ASPIRATION. LIFE LINES DESCRIBED. TECHNICAL DOCUMENTATION: JOB ID: [id number] [employer]- All Rights Reserved Reading location - IP/workstation name: [email or web address]
[2018-11-25] MEDS ORDERED: LORAZEPAM INJ 2 MG/1 ML VIAL ONE (11:12)
[2018-11-25] MEDS: DEXMEDETOMIDINE IN 0.9 % NACL 400 MCG/100 ML RTUPB IV PRN ×2 (12:36→18:44)
[2018-11-25] MEDS ORDERED: ALBUMIN HUMAN 5% INJ 25 GM/500 ML BOTTLE IV ONE ×2 (13:00→16:15)
[2018-11-25 13:22] LABS: ARTERIAL BLOOD BASE EXCESS -6.5 mmol/L; ARTERIAL BLOOD FIO2 50%; ARTERIAL BLOOD H2CO3 0.98 mmol/L (1.05-1.35); ARTERIAL BLOOD HCO3 18.1 mmol/L (20-24); ARTERIAL BLOOD O2 SATURATION 98.2 % (94-98); ARTERIAL BLOOD PCO2 32.7 mmHg (35-45); ARTERIAL BLOOD PH 7.36 (7.35-7.45); ARTERIAL BLOOD PO2 117.8 mmHg (80-100); ARTERIAL BLOOD TOTAL CO2 19.1 mmol/L (23-27)
--- NOTE | 2018-11-25 16:51 | EKG REPORT ---
SEVERITY:- ABNORMAL ECG - SINUS RHYTHM LEFT ANTERIOR FASCICULAR BLOCK BORDERLINE T WAVE ABNORMALITIES : Confirmed by: Irene Lopez MD 25-Nov-2018 16:50:52
--- NOTE | 2018-11-25 21:22 | PDOC PROGRESS REPORT ---
Subjective Progress Note for:: 11/25/18 Subjective:: Patient was transitioned to pressure support ventilation placed on Precedex. He has had some improvement in his responses but not significant enough to allow for liberation from mechanical ventilation. Family available for further discussions. Review of his medications that could potentially have caused his situation was done. Multiple mood altering drugs were noted to be part of his armamentarium. He shows no evidence of hyperthermia or myoclonus. 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 This was on propofol at this is been discontinued. General appearance: PRESENT: no acute distress, obese Head exam: PRESENT: atraumatic, normocephalic Eye exam: PRESENT: conjunctival injection, PERRLA. ABSENT: EOMI, nystagmus, scleral icterus Mouth exam: PRESENT: dry mucosa, neck supple Teeth exam: PRESENT: poor dentation Neck exam: ABSENT: carotid bruit, JVD, lymphadenopathy, meningismus, tenderness, thyromegaly, tracheal deviation Respiratory exam: PRESENT: clear to auscultation wan, symmetrical, unlabored. ABSENT: accessory muscle use, prolonged expiratory phas, tachypnea Cardiovascular exam: PRESENT: RRR, +S1, +S2. ABSENT: clicks, diastolic murmur, gallop, irregular rhythm, systolic murmur Pulses: PRESENT: normal carotid pulses, +2 pedal pulses bilateral Vascular exam: PRESENT: normal capillary refill GI/Abdominal exam: PRESENT: normal bowel sounds, soft. ABSENT: ascites, diminis hed bowel sounds, distended, firm, guarding, hernia, mass, Collado's sign, organolmegaly, rebound, rigid, tenderness Rectal exam: PRESENT: deferred Gentrourinary exam: PRESENT: indwelling catheter Extremities exam: ABSENT: joint swelling, pedal edema Musculoskeletal exam: PRESENT: normal inspection. ABSENT: deformity, dislocation Neurological exam: PRESENT: altered Additional comments: Glascom coma scale is: E:2-V:1t-M:4 Positive gag. Babinski downgoing bilaterally No clonus or tremor Psychiatric exam: ABSENT: agitated Focused psych exam: ABSENT: psychomotor agitation, restlessness Skin exam: PRESENT: intact, normal color, warm. ABSENT: abrasion, cyanosis, erythema, jaundice, mottled, pallor, petechiae, rash, urticaria, vesicles Results Laboratory Results: 11/25/18 04:17 11/25/18 04:17 11/24/18 11/24/18 11/24/18 13:00 13:00 13:47 WBC 13.3 H RBC 5.65 H Hgb 15.7 Hct 47.7 MCV 84 MCH 27.8 MCHC 33.0 RDW 15.9 H Plt Count 231 Seg Neutrophils % 59.8 Carbonic Acid HCO3/H2CO3 Ratio ABG pH ABG pCO2 ABG pO2 ABG HCO3 ABG O2 Saturation ABG Base Excess VBG pH VBG pCO2 VBG HCO3 VBG Base Excess FiO2 Sodium 140.7 Potassium 4.4 Chloride 106 Carbon Dioxide 23 Anion Gap 12 BUN 15 Creatinine 1.06 Est GFR ( Amer) > 60 Glucose 120 H Lactic Acid 1.5 Calcium 9.6 Total Bilirubin 0.5 AST 23 Alkaline Phosphatase 82 Total Protein 7.4 Albumin 4.5 TSH Urine Color Urine Appearance Urine pH Ur Specific [place] Urine Protein Urine Glucose (UA) Urine Ketones Urine Blood 11/24/18 11/24/18 11/24/18 13:47 14:10 15:26 WBC RBC Hgb Hct MCV MCH MCHC RDW Plt Count Seg Neutrophils % Carbonic Acid HCO3/H2CO3 Ratio ABG pH ABG pCO2 ABG pO2 ABG HCO3 ABG O2 Saturation ABG Base Excess VBG pH Cancelled 7.21 L VBG pCO2 Cancelled 58.5 VBG HCO3 Cancelled 23.1 VBG Base Excess Cancelled -5.8 FiO2 Sodium Potassium Chloride Carbon Dioxide Anion Gap BUN Creatinine Est GFR ( Amer) Glucose Lactic Acid Calcium Total Bilirubin AST Alkaline Phosphatase Total Protein Albumin TSH Urine Color YELLOW Urine Appearance CLEAR Urine pH 8.0 Ur Specific [place] 1.013 Urine Protein NEGATIVE Urine Glucose (UA) NEGATIVE Urine Ketones NEGATIVE Urine Blood NEGATIVE 11/24/18 11/24/18 11/24/18 18:10 18:15 20:30 WBC RBC Hgb Hct MCV MCH MCHC RDW Plt Count Seg Neutrophils % Carbonic Acid 1.57 H 1.44 H HCO3/H2CO3 Ratio 13:1 14:1 ABG pH 7.24 L 7.27 L ABG pCO2 52.3 H 47.7 H ABG pO2 54.0 L 57.3 L ABG HCO3 21.7 21.2 ABG O2 Saturation 81.9 L 85.7 L ABG Base Excess -6.3 -5.9 VBG pH VBG pCO2 VBG HCO3 VBG Base Excess FiO2 80% 100% Sodium Potassium Chloride Carbon Dioxide Anion Gap BUN Creatinine Est GFR ( Amer) Glucose Lactic Acid 1.4 Calcium Total Bilirubin AST Alkaline Phosphatase Total Protein Albumin TSH Urine Color Urine Appearance Urine pH Ur Specific [place] Urine Protein Urine Glucose (UA) Urine Ketones Urine Blood 11/24/18 11/25/18 11/25/18 20:30 04:17 04:17 WBC 5.9 RBC 4.80 Hgb 13.5 D Hct 41.0 MCV 85 MCH 28.1 MCHC 32.9 RDW 16.3 H Plt Count 171 Seg Neutrophils % 73.4 Carbonic Acid HCO3/H2CO3 Ratio ABG pH ABG pCO2 ABG pO2 ABG HCO3 ABG O2 Saturation ABG Base Excess VBG pH VBG pCO2 VBG HCO3 VBG Base Excess FiO2 Sodium 145.1 H Potassium 4.4 Chloride 119 H Carbon Dioxide 17 L Anion Gap 9 BUN 17 Creatinine 1.29 H Est GFR ( Amer) > 60 Glucose 78 Lactic Acid Calcium 7.2 L Total Bilirubin AST Alkaline Phosphatase Total Protein Albumin TSH 0.90 Urine Color Urine Appearance Urine pH Ur Specific [place] Urine Protein Urine Glucose (UA) Urine Ketones Urine Blood 11/24/18 11/24/18 13:00 13:00 Creatine Kinase 102 CK-MB (CK-2) 2.45 Troponin I < 0.012 EKG Comments: QTc 453, no acute changes Impressions: Head CT 11/24/18 15:38 IMPRESSION: NORMAL BRAIN CT WITHOUT CONTRAST. EVIDENCE OF ACUTE STROKE: NO. Chest X-Ray 11/25/18 08:00 IMPRESSION: DEVELOPING AIRSPACE DISEASE IN THE LEFT LUNG BASE CONCERNING FOR P NEUMONIA, POSSIBLY RELATED TO ASPIRATION. LIFE LINES DESCRIBED. Assessment & Plan - Diagnosis (1) Encephalopathy due to metabolic factor or toxin Is this a current diagnosis for this admission?: Yes Plan: See below (2) Acute respiratory failure with hypoxia Is this a current diagnosis for this admission?: Yes Plan: See below (3) Drug overdose, multiple drugs Qualifiers: Encounter type: initial encounter Injury intent: undetermined intent Qualified Code(s): T50.914A - Poisoning by multiple unspecified drugs, med icaments and biological substances, undetermined, initial encounter Is this a current diagnosis for this admission?: Yes Plan: See below (4) Obesity (BMI 30.0-34.9) Is this a current diagnosis for this admission?: Yes - Time Time Spent with patient: 35 or more minutes Total Critical Time (Minutes): 50 Medications reviewed and adjusted accordingly: Yes Within: within 48 hours - Inpatient Certification Medical Necessity: Significant Comorbidiites Make Outpatient Treatment Too Risky, Need For IV Fluids, Need For Continuous Telemetry Monitoring, Need for Neurological Checks, Risk of Complication if Not Cared For in Hospital 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 Looking his medications this could possibly be the combined effect of Haldol, fluoxetine, Atarax, and gabapentin. Does take buspirone and benztropine. We will start nutritional support. Start Precedex to allow for neurological examination Begin vent wean with proposed liberation when neurological status improves Patient seen in multidisciplinary rounds. Care of in ICU patient is ongoing and dynamic. This note represents a static representation of ongoing care in the last 24 hours. Orders given, completed and entered via computer are not always reflective of actual time done. Medical power of consumer attorney is: Patient requires ICU care secondary to acute respiratory distress with hypoxia maintained on mechanical ventilation, coma
[2018-11-26] MEDS: DEXMEDETOMIDINE IN 0.9 % NACL 400 MCG/100 ML RTUPB IV PRN ×8 (02:12→22:50)
[2018-11-26] MEDS: HYDROMORPHONE HCL INJ/PF 2 MG/ML AMPULE IV PRN (02:41)
[2018-11-26] MEDS: NORMAL SALINE 1000 ML 1,000 ML IV PRN (06:37)
[2018-11-26 07:16] LABS: ARTERIAL BLOOD BASE EXCESS -8.7 mmol/L; ARTERIAL BLOOD H2CO3 0.76 mmol/L (1.05-1.35); ARTERIAL BLOOD HCO3 14.7 mmol/L (20-24); ARTERIAL BLOOD O2 SATURATION 98.4 % (94-98); ARTERIAL BLOOD PCO2 25.2 mmHg (35-45); ARTERIAL BLOOD PH 7.38 (7.35-7.45); ARTERIAL BLOOD PO2 122.4 mmHg (80-100); ARTERIAL BLOOD TOTAL CO2 15.4 mmol/L (23-27)
[2018-11-26 07:20] LABS: ARTERIAL BLOOD FIO2 50%
[2018-11-26 07:30] LABS: ABSOLUTE MONOCYTES (AUTO) 0.5 10^3/uL (0.1-1.4); ABSOLUTE NEUT (AUTO) 6.8 10^3/uL (1.7-8.2); BASOPHILS % (AUTO) 0.2 % (0-2); EOSINOPHILS % (AUTO) 0.2 % (0-6); HEMATOCRIT 36.3 % (37.9-51.0); LYMPHOCYTES % (AUTO) 11.7 % (13-45); MEAN CORPUSCULAR HEMOGLOBIN 27.9 pg (27.0-33.4); MEAN CORPUSCULAR HGB CONC 33.1 g/dL (32.0-36.0); MEAN CORPUSCULAR VOLUME 84 fl (80-97); MONOCYTES % (AUTO) 5.7 % (3-13); PLATELET COUNT 155 10^3/uL (150-450); RED CELL DISTRIBUTION WIDTH 15.8 % (11.5-14.0); SEGMENTED NEUTROPHILS % (AUTO) 82.2 % (42-78); TOTAL CELLS COUNTED % (AUTO) 100 %; WHITE BLOOD COUNT 8.3 10^3/uL (4.0-10.5)
[2018-11-26 07:35] LABS: ALBUMIN 2.9 g/dL (3.5-5.0); ALKALINE PHOSPHATASE 52 U/L (38-126); ANION GAP 10 (5-19); ASPARTATE AMINO TRANSFERASE 18 U/L (17-59); BILIRUBIN,DIRECT 0.3 mg/dL (0.0-0.4); BILIRUBIN,TOTAL 0.6 mg/dL (0.2-1.3); BLOOD UREA NITROGEN 19 mg/dL (7-20); CALCIUM 8.4 mg/dL (8.4-10.2); CARBON DIOXIDE 16 mmol/L (22-30); CHLORIDE 117 mmol/L (98-107); GLUCOSE 123 mg/dL (75-110); PHOSPHORUS 3.3 mg/dL (2.5-4.5); POTASSIUM 3.9 mmol/L (3.6-5.0); TOTAL PROTEIN 5.2 g/dL (6.3-8.2)
[2018-11-26 08:12] LABS: INTERNATIONAL RATION (INR) 1.28
[2018-11-26 08:13] LABS: PARTIAL THROMBOPLASTIN TIME 42.7 SEC (23.5-35.8)
--- NOTE | 2018-11-26 08:50 | RADIOLOGY REPORT (SQ) ---
EXAM DESCRIPTION: CHEST SINGLE VIEW COMPLETED DATE/TIME: 11/26/2018 6:08 am REASON FOR STUDY: Aspiration COMPARISON: AP view of the chest from 11/25/2018. EXAM PARAMETERS: NUMBER OF VIEWS: One view. TECHNIQUE: Single frontal radiographic view of the chest acquired. RADIATION DOSE: NA LIMITATIONS: None. FINDINGS: LUNGS AND PLEURA: The pleural and parenchymal opacities in the left base that obscures the contour of the left hemidiaphragm and blunts the left costophrenic sulcus are unchanged. There is n o consolidation, pleural effusion or pneumothorax on the contralateral side. MEDIASTINUM AND HILAR STRUCTURES: Stable mediastinal and hilar contours. HEART AND VASCULAR STRUCTURES: Stable cardiac silhouette. The pulmonary vasculature is within normal limits given the low inspiratory lung volumes. BONES: No acute findings. HARDWARE: The tip of the enteric tube projects past the gastroesophageal junction and within the carmelita vance lumen. The tip of the endotracheal tube projects at the level of the thoracic inlet. OTHER: No other finding. IMPRESSION: Pleural and parenchymal opacities in the left base that could represent a combination of pleural fluid, consolidation and or atelectasis. Clinical correlation to exclude an infectious etio logy is recommended. TECHNICAL DOCUMENTATION: JOB ID: [id number] [employer]- All Rights Reserved Reading location - IP/workstation name: [email or web address]
[2018-11-26] MEDS ORDERED: MINERAL OIL/PETROLATUM,WHITE OPH OINT 3.5 GM OU PRN (09:09)
[2018-11-26] MEDS: FAMOTIDINE 20 MG TABLET PO SCH ×2 (09:22→21:27)
[2018-11-26] MEDS: FUROSEMIDE INJ/PF 20 MG/2 ML SDV IV SCH ×2 (09:22→17:48)
[2018-11-26] MEDS: ENOXAPARIN SODIUM INJ 40 MG/0.4 ML DISP.SYRIN SUBCUT SCH (09:22)
[2018-11-26] MEDS: MAGNESIUM SULFATE/D5W 1 GM/100 ML RTUPB IV SCH ×3 (09:23→11:58)
[2018-11-26 09:24] LABS: URINE CREATININE 244.2 mg/dL (22-328)
[2018-11-26] MEDS: THIAMINE HCL 500 MG, FOLIC ACID 1 MG in NORMAL SALINE 250 ML IV SCH ×2 (10:11→21:26)
[2018-11-26] MEDS ORDERED: HYDRALAZINE HCL INJ/PF 20 MG/1 ML SDV ONE (10:36)
[2018-11-26] MEDS ORDERED: HYDRALAZINE HCL INJ/PF 20 MG/1 ML SDV IV ONE (10:45)
--- NOTE | 2018-11-26 11:07 | PDOC PROGRESS REPORT ---
Subjective Progress Note for:: 11/26/18 Subjective:: 11.26.18: Patient's neurological status appears slightly improved. Maintained on Dexmedetomidine. His blood pressures have been elevated with discontinuation of propofol. He is also been off all his home psychotropic medications. No hyperthermia or seizures have been noted. 11.25.18:Patient was transitioned to pressure support ventilation placed on Precedex. He has had some improvement in his responses but not significant enough to allow for liberation from mechanical ventilation. Family available for further discussions. Review of his medications that could potentially have caused his situation was done. Multiple mood altering drugs were noted to be part of his armamentarium. He shows no evidence of hyperthermia or myoclonus. 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 ABSENT: conjunctival injection, nystagmus, scleral icterus Mouth exam: PRESENT: moist, neck supple Neck exam: ABSENT: JVD, lymphadenopathy, meningismus, thyromegaly, tracheal deviation Respiratory exam: PRESENT: clear to auscultation wan, unlabored. ABSENT: accessory muscle use, tachypnea Cardiovascular exam: PRESENT: RRR, +S1, +S2. ABSENT: clicks, gallop, rubs, systolic murmur Pulses: PRESENT: +2 pedal pulses bilateral Vascular exam: PRESENT: normal capillary refill GI/Abdominal exam: PRESENT: normal bowel sounds, soft. ABSENT: ascites, distended, firm, guarding, mass, Collado's sign, organolmegaly, rebound, rigid, tenderness Rectal exam: PRESENT: deferred Gentrourinary exam: PRESENT: indwelling catheter Extremities exam: PRESENT: pedal edema. ABSENT: joint swelling Musculoskeletal exam: PRESENT: normal inspection. ABSENT: deformity, dislocation Neurological exam: PRESENT: altered Additional comments: Glascow coma scale: E: 2-V:1i-M:5 Moves both arms and legs no focal deficits. Focused psych exam: ABSENT: psychomotor agitation, restlessness Skin exam: PRESENT: normal color. ABSENT: cyanosis, erythema, jaundice, mottled, pallor, petechiae, rash, urticaria, vesicles Results Laboratory Results: 11/26/18 06:50 11/26/18 06:50 11/25/18 11/25/18 11/26/18 12:35 12:51 06:50 WBC 8.3 RBC 4.30 L Hgb 12.0 L Hct 36.3 L MCV 84 MCH 27.9 MCHC 33.1 RDW 15.8 H Plt Count 155 Seg Neutrophils % 82.2 H Carbonic Acid 0.98 L HCO3/H2CO3 Ratio 18:1 ABG pH 7.36 ABG pCO2 32.7 L ABG pO2 117.8 H ABG HCO3 18.1 L ABG O2 Saturation 98.2 H ABG Base Excess -6.5 FiO2 50% Sodium Potassium Chloride Carbon Dioxide Anion Gap BUN Creatinine Est GFR ( Amer) Glucose Calcium Phosphorus Magnesium Total Bilirubin AST Alkaline Phosphatase Ammonia < 8.7 L Total Protein Albumin 11/26/18 11/26/18 06:50 06:50 WBC RBC Hgb Hct MCV MCH MCHC RDW Plt Count Seg Neutrophils % Carbonic Acid 0.76 L HCO3/H2CO3 Ratio 19:1 ABG pH 7.38 ABG pCO2 25.2 L ABG pO2 122.4 H ABG HCO3 14.7 L ABG O2 Saturation 98.4 H ABG Base Excess -8.7 FiO2 50% Sodium 142.6 Potassium 3.9 Chloride 117 H Carbon Dioxide 16 L Anion Gap 10 BUN 19 Creatinine 0.88 Est GFR ( Amer) > 60 Glucose 123 H Calcium 8.4 Phosphorus 3.3 Magnesium 1.6 Total Bilirubin 0.6 AST 18 Alkaline Phosphatase 52 Ammonia Total Protein 5.2 L Albumin 2.9 L 11/24/18 11/24/18 11/25/18 13:00 13:00 12:51 Creatine Kinase 102 88 CK-MB (CK-2) 2.45 Troponin I < 0.012 Impressions: Head CT 11/24/18 15:38 IMPRESSION: NORMAL BRAIN CT WITHOUT CONTRAST. EVIDENCE OF ACUTE STROKE: NO. Assessment & Plan - Diagnosis (1) Encephalopathy due to metabolic factor or toxin Is this a current diagnosis for this admission?: Yes (2) Acute respiratory failure with hypoxia Is this a current diagnosis for this admission?: Yes (3) Drug overdose, multiple drugs Qualifiers: Encounter type: initial encounter Injury intent: undetermined intent Qualified Code(s): T50.914A - Poisoning by multiple unspecified drugs, medicaments and biological substances, undetermined, initial encounter Is this a current diagnosis for this admission?: Yes (4) Obesity (BMI 30.0-34.9) Is this a current diagnosis for this admission?: Yes (5) Hypertension Qualifiers: Hypertension type: unspecified secondary hypertension Qualified Code(s): I15.9 - Secondary hypertension, unspecified; I15 - Secondary hypertension Is this a current diagnosis for this admission?: Yes Plan: Suspect related to withdrawl of psychotropic medications - Time Time Spent with patient: 35 or more minutes Total Critical Time (Minutes): 68 Medications reviewed and adjusted accordingly: Yes Disposition: To remain in ICU - Inpatient Certification Based on my medical assessment, after consideration of the patient's comorbidities, presenting symptoms, or acuity I expect that the services needed warrant INPATIENT care.: Yes I certify that my determination is in accordance with my understanding of Medicare's requirements for reasonable and necessary INPATIENT services [42 CFR 412.3e].: Yes Medical Necessity: Significant Comorbidiites Make Outpatient Treatment Too Risky, Need For IV Fluids, Need For Continuous Telemetry Monitoring, Need for Neurological Checks, Risk of Complication if Not Cared For in Hospital 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 No nystagmus or evidence to support nonconvulsive status epilepticus. He does have increase in blood pressure which may be secondary to withdrawal of psychotropic medications. Continue to monitor for serotonin withdrawal symptoms as well as recovery from mood altering medications. Will start antihypertensives if blood pressure continues to be elevated. Will attempt to speak to his family and/or significant other to evaluate for other etiologic possibilities for his condition. Critical care ultrasound was done to evaluate fluid status. Able to clearly distinguish IVC. Chest x-ray shows slight increase in interstitial pattern and he is positive from a fluid balance standpoint. We will begin diuresis. Patient has a non-anion gap metabolic acidosis that may be related to sodium chloride. I have asked for urine electrolytes including urine chloride to determine whether this is an RTA from the medications that he took. Have started vent weaning and spontaneous breathing trials. We will need to start his Neurontin at low-dose to prevent withdrawal related seizures The patient has also been on baclofen and will try to gently reintroduce this as well. Extensive review of his home medications and found that the patient is also on an DARIN inhibitor (enalapril 10 mg daily). Patient has been taking ibuprofen as well as hemp (CBD) oil. With the above it appears that the patient has a chronic pain syndrome and will need to address this. No doubt this may be leading to depression and the tendency for drug overdose whether intentional or accidental. Continue with Precedex to control symptoms. 19: Patient continues to show neurological improvement with multiple examinations over time. Looking his medications this could possibly be the combined effect of Haldol, fluoxetine, Atarax, and gabapentin. Does take buspirone and benztropine. We will start nutritional support. Start Precedex to allow for neurological examination Begin vent wean with proposed liberation when neurological status improves Patient seen in multidisciplinary rounds. Care of in ICU patient is ongoing and dynamic. This note represents a static representation of ongoing care in the last 24 hours. Orders given, completed and entered via computer are not always reflective of actual time done. Medical power of personal injury attorney is: Patient requires ICU care secondary to acute respiratory distress with hypoxia maintained on mechanical ventilation, coma
[2018-11-26] MEDS ORDERED: LORAZEPAM INJ 2 MG/1 ML VIAL IV ONE (11:09)
[2018-11-26] MEDS: ENALAPRIL MALEATE 10 MG TABLET PO SCH (12:08)
[2018-11-26] MEDS: PAROXETINE HCL 20 MG TABLET PO SCH (12:08)
[2018-11-26] MEDS: GABAPENTIN 100 MG CAPSULE PO SCH ×2 (12:09→21:27)
[2018-11-26] MEDS ORDERED: FENTANYL CITRATE INJ/PF 100 MCG/2 ML AMPUL IV ONE ×2 (12:41→22:00)
[2018-11-26] MEDS: BACLOFEN 20 MG TABLET PO SCH ×3 (13:01→21:27)
[2018-11-26] MEDS ORDERED: HYDRALAZINE HCL INJ/PF 20 MG/1 ML SDV IV PRN (14:45)
[2018-11-26] MEDS ORDERED: AMLODIPINE BESYLATE 5 MG TABLET PO SCH (15:00)
[2018-11-26] MEDS: AMLODIPINE BESYLATE 10 MG TABLET PO SCH (15:24)
[2018-11-26 16:15] LABS: ANION GAP 9 (5-19); BLOOD UREA NITROGEN 18 mg/dL (7-20); CALCIUM 8.4 mg/dL (8.4-10.2); CARBON DIOXIDE 18 mmol/L (22-30); CHLORIDE 117 mmol/L (98-107); GLUCOSE 142 mg/dL (75-110); PHOSPHORUS 2.5 mg/dL (2.5-4.5); POTASSIUM 3.3 mmol/L (3.6-5.0)
[2018-11-26 17:48] LABS: ARTERIAL BLOOD BASE EXCESS -4.5 mmol/L; ARTERIAL BLOOD H2CO3 0.74 mmol/L (1.05-1.35); ARTERIAL BLOOD HCO3 17.6 mmol/L (20-24); ARTERIAL BLOOD O2 SATURATION 88.1 % (94-98); ARTERIAL BLOOD PCO2 24.6 mmHg (35-45); ARTERIAL BLOOD PH 7.47 (7.35-7.45); ARTERIAL BLOOD PO2 49.2 mmHg (80-100); ARTERIAL BLOOD TOTAL CO2 18.3 mmol/L (23-27)
[2018-11-26 17:49] LABS: ARTERIAL BLOOD FIO2 40%
[2018-11-26] MEDS: POTASSI CL 20 MEQ/50 ML RIDER 20 MEQ/50 ML RTUPB IV SCH ×3 (19:05→23:46)
[2018-11-26 20:10] LABS: ARTERIAL BLOOD H2CO3 0.76 mmol/L (1.05-1.35); ARTERIAL BLOOD HCO3 18.7 mmol/L (20-24); ARTERIAL BLOOD O2 SATURATION 96.8 % (94-98); ARTERIAL BLOOD PCO2 25.2 mmHg (35-45); ARTERIAL BLOOD PH 7.49 (7.35-7.45); ARTERIAL BLOOD PO2 79.6 mmHg (80-100); ARTERIAL BLOOD TOTAL CO2 19.5 mmol/L (23-27)
[2018-11-26 20:13] LABS: ARTERIAL BLOOD FIO2 40%
[2018-11-26] MEDS ORDERED: FENTANYL CITRATE INJ/PF 100 MCG/2 ML AMPUL ONE (21:11)
[2018-11-26] MEDS: MEROPENEM 1 GM in NORMAL SALINE 50 ML IV SCH (22:08)
[2018-11-27] MEDS: FENTANYL CITRATE INJ/PF 100 MCG/2 ML AMPUL IV PRN ×4 (01:06→16:39)
[2018-11-27] MEDS: FUROSEMIDE INJ/PF 20 MG/2 ML SDV IV SCH ×4 (01:07→19:21)
[2018-11-27] MEDS: DEXMEDETOMIDINE IN 0.9 % NACL 400 MCG/100 ML RTUPB IV PRN ×9 (01:07→20:35)
[2018-11-27 04:43] LABS: ARTERIAL BLOOD H2CO3 0.76 mmol/L (1.05-1.35); ARTERIAL BLOOD HCO3 18.8 mmol/L (20-24); ARTERIAL BLOOD O2 SATURATION 96.5 % (94-98); ARTERIAL BLOOD PCO2 25.2 mmHg (35-45); ARTERIAL BLOOD PH 7.49 (7.35-7.45); ARTERIAL BLOOD PO2 76.9 mmHg (80-100); ARTERIAL BLOOD TOTAL CO2 19.5 mmol/L (23-27)
[2018-11-27 04:45] LABS: ARTERIAL BLOOD FIO2 40%
[2018-11-27 04:46] LABS: ABSOLUTE LYMPHOCYTES (AUTO) 0.9 10^3/uL (0.5-4.7); ABSOLUTE MONOCYTES (AUTO) 0.6 10^3/uL (0.1-1.4); ABSOLUTE NEUT (AUTO) 8.2 10^3/uL (1.7-8.2); BASOPHILS % (AUTO) 0.2 % (0-2); EOSINOPHILS % (AUTO) 0.3 % (0-6); HEMATOCRIT 35.7 % (37.9-51.0); HEMOGLOBIN 12.1 g/dL (13.5-17.0); LYMPHOCYTES % (AUTO) 9.4 % (13-45); MEAN CORPUSCULAR HGB CONC 33.9 g/dL (32.0-36.0); MEAN CORPUSCULAR VOLUME 83 fl (80-97); MONOCYTES % (AUTO) 5.8 % (3-13); PLATELET COUNT 159 10^3/uL (150-450); RED BLOOD COUNT 4.31 10^6/uL (4.35-5.55); RED CELL DISTRIBUTION WIDTH 15.5 % (11.5-14.0); SEGMENTED NEUTROPHILS % (AUTO) 84.3 % (42-78); TOTAL CELLS COUNTED % (AUTO) 100 %; WHITE BLOOD COUNT 9.7 10^3/uL (4.0-10.5)
[2018-11-27 05:05] LABS: ANION GAP 10 (5-19); BLOOD UREA NITROGEN 17 mg/dL (7-20); CALCIUM 8.3 mg/dL (8.4-10.2); CARBON DIOXIDE 19 mmol/L (22-30); CHLORIDE 113 mmol/L (98-107); GLUCOSE 165 mg/dL (75-110); PHOSPHORUS 2.3 mg/dL (2.5-4.5); POTASSIUM 3.1 mmol/L (3.6-5.0)
[2018-11-27] MEDS: GABAPENTIN 100 MG CAPSULE PO SCH ×2 (05:20→13:39)
[2018-11-27] MEDS: MEROPENEM 1 GM in NORMAL SALINE 50 ML IV SCH ×3 (05:20→22:54)
[2018-11-27] MEDS: POTASSIUM CHLORIDE 20 MEQ/50 ML RTU IV SCH ×4 (07:30→22:53)
[2018-11-27 07:37] LABS: LEAD None Detected ug/dL (0-4); MERCURY WHOLE BLD None Detected ug/L (0.0-14.9)
--- NOTE | 2018-11-27 08:01 | RADIOLOGY REPORT (SQ) ---
EXAM DESCRIPTION: CHEST SINGLE VIEW COMPLETED DATE/TIME: 11/27/2018 6:32 am REASON FOR STUDY: aspiration COMPARISON: 11/26/2018 NUMBER OF VIEWS: One view. TECHNIQUE: Single frontal radiographic image of the chest acquired. LIMITATIONS: None. FINDINGS: LUNGS AND PLEURA: Stable appearance. MEDIASTINUM AND HILAR STRUCTURES: Stable heart size and mediastinal structures. HEART AND VASCULAR STRUCTURES: Stable appearance. SUPPORT DEVICES: Appropriate location without change. BONES: No acute findings. OTHER: No other significant finding. IMPRESSION: STABLE APPEARANCE OF THE CHEST. SUPPORT DEVICES UNCHANGED. TECHNICAL DOCUMENTATION: JOB ID: [id number] [employer]- All Rights Reserved Reading location - IP/workstation name: [email or web address] [email or web address]
[2018-11-27] MEDS ORDERED: VANCOMYCIN HCL 0 MG in DEXTROSE 5%-WATER 250 ML IV NR (09:45)
[2018-11-27] MEDS: FAMOTIDINE 20 MG TABLET PO SCH ×2 (10:08→22:53)
[2018-11-27] MEDS: ENOXAPARIN SODIUM INJ 40 MG/0.4 ML DISP.SYRIN SUBCUT SCH (10:09)
[2018-11-27] MEDS: PAROXETINE HCL 20 MG TABLET PO SCH (10:10)
[2018-11-27] MEDS: BACLOFEN 20 MG TABLET PO SCH ×4 (10:12→22:54)
[2018-11-27] MEDS: AMLODIPINE BESYLATE 10 MG TABLET PO SCH (10:17)
[2018-11-27] MEDS: ENALAPRIL MALEATE 10 MG TABLET PO SCH (10:24)
[2018-11-27] MEDS: THIAMINE HCL 500 MG, FOLIC ACID 1 MG in NORMAL SALINE 250 ML IV SCH (10:27)
[2018-11-27] MEDS: VANCOMYCIN HCL 1,500 MG in DEXTROSE 5%-WATER 250 ML IV SCH ×2 (10:33→18:18)
--- NOTE | 2018-11-27 13:39 | PDOC PROGRESS REPORT ---
Subjective Progress Note for:: 11/27/18 Subjective:: 11.27.18: Patient's Bp has improved. He developed increase in secretions on pressure support wean. He developed some hypoxia last evening during suctioning requiring transition to conventional ventilation. We also started antibiotics because of the secretions. His chest x-ray shows a minimal mixed interstitial alveolar pattern in the left lung. He has had a low-grade chair for the last 3 or 4 days without any increase. He is more responsive and starting to follow commands. He does become agitated. We did start him on some of his home antispasmodic and pain medications as well as his antidepressants and psychotropic drugs in concern for withdrawal pattern. Is also had a good response to diuretic. 11.26.18: Patient's neurological status appears slightly improved. Maintained on Dexmedetomidine. His blood pressures have been elevated with discontinuation of propofol. He is also been off all his home psychotropic medications. No hyperthermia or seizures have been noted. 11.25.18:Patient was transitioned to pressure support ventilation placed on Precedex. He has had some improvement in his responses but not significant enough to allow for liberation from mechanical ventilation. Family available for further discussions. Review of his medications that could potentially have caused his situation was done. Multiple mood altering drugs were noted to be part of his armamentarium. He shows no evidence of hyperthermia or myoclonus. 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 ABSENT: conjunctival injection, nystagmus, scleral icterus Mouth exam: PRESENT: moist, neck supple Neck exam: ABSENT: carotid bruit, JVD, lymphadenopathy, meningismus, tenderness, thyromegaly, tracheal deviation Respiratory exam: PRESENT: clear to auscultation wan, unlabored. ABSENT: accessory muscle use, rhonchi, wheezes Cardiovascular exam: PRESENT: RRR, +S1, +S2. ABSENT: rubs, systolic murmur Pulses: PRESENT: +1 pedal pulses bilateral GI/Abdominal exam: PRESENT: soft, tenderness. ABSENT: ascites, diminished bowel sounds, distended, firm, mass, Collado's sign, normal bowel sounds, rebound, rigid Rectal exam: PRESENT: deferred Gentrourinary exam: PRESENT: indwelling catheter Extremities exam: ABSENT: joint swelling Musculoskeletal exam: PRESENT: normal inspection. ABSENT: deformity, dislocation Neurological exam: PRESENT: altered. ABSENT: motor sensory deficit Additional comments: GCS is 2-1T-6. No focal motor deficits exist Minsky is downgoing no hyperreflexia no hypertonus or clonus. Psychiatric exam: ABSENT: agitated, anxious Focused psych exam: PRESENT: restlessness - Restless at times during examination.. ABSENT: psychomotor agitation Skin exam: PRESENT: normal color, petechiae. ABSENT: cyanosis, erythema, mottled Results Laboratory Results: 11/27/18 04:20 11/27/18 04:20 11/26/18 11/26/18 11/26/18 15:40 17:20 20:00 WBC RBC Hgb Hct MCV MCH MCHC RDW Plt Count Seg Neutrophils % Carbonic Acid 0.74 L 0.76 L HCO3/H2CO3 Ratio 23:1 24:1 ABG pH 7.47 H 7.49 H ABG pCO2 24.6 L 25.2 L ABG pO2 49.2 L 79.6 L ABG HCO3 17.6 L 18.7 L ABG O2 Saturation 88.1 L 96.8 ABG Base Excess -4.5 -3.0 FiO2 40% 40% Sodium 143.5 Potassium 3.3 L Chloride 117 H Carbon Dioxide 18 L Anion Gap 9 BUN 18 Creatinine 0.76 Est GFR ( Amer) > 60 Glucose 142 H Calcium 8.4 Phosphorus 2.5 Magnesium 2.1 11/27/18 11/27/18 11/27/18 04:20 04:20 04:20 WBC 9.7 RBC 4.31 L Hgb 12.1 L Hct 35.7 L MCV 83 MCH 28.0 MCHC 33.9 RDW 15.5 H Plt Count 159 Seg Neutrophils % 84.3 H Carbonic Acid 0.76 L HCO3/H2CO3 Ratio 24:1 ABG pH 7.49 H ABG pCO2 25.2 L ABG pO2 76.9 L ABG HCO3 18.8 L ABG O2 Saturation 96.5 ABG Base Excess -3.0 FiO2 40% Sodium 142.1 Potassium 3.1 L Chloride 113 H Carbon Dioxide 19 L Anion Gap 10 BUN 17 Creatinine 0.64 Est GFR ( Amer) > 60 Glucose 165 H Calcium 8.3 L Phosphorus 2.3 L Magnesium 1.7 11/24/18 11/24/18 11/25/18 13:00 13:00 12:51 Creatine Kinase 102 88 CK-MB (CK-2) 2.45 Troponin I < 0.012 Impressions: Head CT 11/24/18 15:38 IMPRESSION: NORMAL BRAIN CT WITHOUT CONTRAST. EVIDENCE OF ACUTE STROKE: NO. Chest X-Ray 11/27/18 06:00 IMPRESSION: STABLE APPEARANCE OF THE CHEST. SUPPORT DEVICES UNCHANGED. Assessment & Plan - Diagnosis (1) Encephalopathy due to metabolic factor or toxin Is this a current diagnosis for this admission?: Yes (2) Acute respiratory failure with hypoxia Is this a current diagnosis for this admission?: Yes (3) Drug overdose, multiple drugs Qualifiers: Encounter type: initial encounter Injury intent: undetermined intent Qualified Code(s): T50.914A - Poisoning by multiple unspecified drugs, medicaments and biological substances, undetermined, initial encounter Is this a current diagnosis for this admission?: Yes (4) Obesity (BMI 30.0-34.9) Is this a current diagnosis for this admission?: Yes (5) Hypertension Qualifiers: Hypertension type: unspecified secondary hypertension Qualified Code(s): I15.9 - Secondary hypertension, unspecified; I15 - Secondary hypertension Is this a current diagnosis for this admission?: Yes (6) Chronic pain disorder Is this a current diagnosis for this admission?: Yes - Time Time Spent with patient: 35 or more minutes Total Critical Time (Minutes): 60 Medications reviewed and adjusted accordingly: Yes - Inpatient Certification Based on my medical assessment, after consideration of the patient's comor bidities, presenting symptoms, or acuity I expect that the services needed warrant INPATIENT care.: Yes I certify that my determination is in accordance with my understanding of Medicare's requirements for reasonable and necessary INPATIENT services [42 CFR 412.3e].: Yes Medical Necessity: Significant Comorbidiites Make Outpatient Treatment Too Risky, Need For Continuous Telemetry Monitoring, Need for Neurological Checks, Need for Pain Control, Need for IV Antibiotics, Risk of Complication if Not Cared For in Hospital Post Hospital Care: D/C 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 He does have significant chronic pain syndrome but is not on opioids and his urine was negative for opioids. Does take various muscle relaxants and is on Neurontin for pain control. He does have significant depression and takes a number of medications to control pain and anxiety. Again not taking any narcotics. Today we will continue the weaning process as well as diuresing continuously. Do not feel that this is a ventilator acquired pneumonia however the patient did have an aspiration event on admission it is conceivable that he could develop an aspiration pneumonitis. That being said given the amount of secretions and the possible tracheitis I have not added antibiotics until cultures can be obtained. We do not have the capability for procalcitonin which would also be helpful. We will increase Neurontin start weaning Precedex and continue vent weaning. Anticipate ability to liberate from the ventilator in the next 24 hours. 11.26.18: Patient continues to improve but slow neurologic recovery. No nystagmus or evidence to support nonconvulsive status epilepticus. He does have increase in blood pressure which may be secondary to withdrawal of psychotropic medications. Continue to monitor for serotonin withdrawal symptoms as well as recovery from mood altering medications. Will start antihypertensives if blood pressure continues to be elevated. Will attempt to speak to his family and/or significant other to evaluate for other etiologic possibilities for his condition. Critical care ultrasound was done to evaluate fluid status. Able to clearly distinguish IVC. Chest x-ray shows slight increase in interstitial pattern and he is positive from a fluid balance standpoint. We will begin diuresis. Patient has a non-anion gap metabolic acidosis that may be related to sodium chloride. I have asked for urine electrolytes including urine chloride to determine whether this is an RTA from the medications that he took. Have started vent weaning and spontaneous breathing trials. We will need to start his Neurontin at low-dose to prevent withdrawal related seizures The patient has also been on baclofen and will try to gently reintroduce this as well. Extensive review of his home medications and found that the patient is also on an DARIN inhibitor (enalapril 10 mg daily). Patient has been taking ibuprofen as well as hemp (CBD) oil. With the above it appears that the patient has a chronic pain syndrome and will need to address this. No doubt this may be leading to depression and the tendency for drug overdose whether intentional or accidental. Continue with Precedex to control symptoms. 19: Patient continues to show neurological improvement with multiple examinations over time. Looking his medications this could possibly be the combined effect of Haldol, fluoxetine, Atarax, and gabapentin. Does take buspirone and benztropine. We will start nutritional support. Start Precedex to allow for neurological examination Begin vent wean with proposed liberation when neurological status improves Patient seen in multidisciplinary rounds. Care of in ICU patient is ongoing and dynamic. This note represents a static representation of ongoing care in the last 24 hours. Orders given, completed and entered via computer are not always reflective of actual time done. 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
--- NOTE | 2018-11-27 13:47 | RADIOLOGY REPORT (SQ) ---
EXAM DESCRIPTION: KUB/ABDOMEN (SINGLE VIEW) COMPLETED DATE/TIME: 11/27/2018 1:35 pm REASON FOR STUDY: colonic distension COMPARISON: 12/11/2015 NUMBER OF VIEWS: One view. TECHNIQUE: Supine radiographic image of the abdomen acquired. LIMITATIONS: None. FINDINGS: BOWEL GAS PATTERN: There is colonic distention. No conventional radiographic evidence of obstruction. Images are limited due to respiratory motion. CALCIFICATIONS: No suspicious calcifications. SOFT TISSUES: No gross mass or suggestion of organomegaly. HARDWARE: None in the abdomen. BONES: No acute fracture. No worrisome bone lesions. OTHER: No other significant finding. IMPRESSION: Colonic distention. Most likely nonobstructive. TECHNICAL DOCUMENTATION: JOB ID: [id number] [employer]- All Rights Reserved Reading location - IP/workstation name: [email or web address]
[2018-11-27 15:49] LABS: ARTERIAL BLOOD FIO2 40; ARTERIAL BLOOD HCO3 19.4 mmol/L (20-24); ARTERIAL BLOOD PCO2 26.5 mmHg (35-45); ARTERIAL BLOOD PH 7.48 (7.35-7.45); ARTERIAL BLOOD PO2 69.5 mmHg (80-100); ARTERIAL BLOOD TOTAL CO2 20.2 mmol/L (23-27)
[2018-11-27 15:50] LABS: ARTERIAL BLOOD BASE EXCESS -2.7 mmol/L; ARTERIAL BLOOD O2 SATURATION 95.4 % (94-98)
[2018-11-27 19:03] LABS: ANION GAP 9 (5-19); BLOOD UREA NITROGEN 18 mg/dL (7-20); CALCIUM 8.1 mg/dL (8.4-10.2); CARBON DIOXIDE 21 mmol/L (22-30); CHLORIDE 114 mmol/L (98-107); GLUCOSE 115 mg/dL (75-110); POTASSIUM 3.4 mmol/L (3.6-5.0)
[2018-11-27] MEDS ORDERED: GABAPENTIN 100 MG CAPSULE PO SCH (22:00)
[2018-11-27] MEDS ORDERED: THIAMINE HCL 250 MG in NORMAL SALINE 100 ML IV SCH (22:00)
[2018-11-27] MEDS: GABAPENTIN 300 MG CAPSULE PO SCH (22:54)
[2018-11-28] MEDS: FENTANYL CITRATE INJ/PF 100 MCG/2 ML AMPUL IV PRN (01:16)
[2018-11-28] MEDS: DEXMEDETOMIDINE IN 0.9 % NACL 400 MCG/100 ML RTUPB IV PRN (01:17)
[2018-11-28] MEDS: FUROSEMIDE INJ/PF 20 MG/2 ML SDV IV SCH (03:06)
[2018-11-28] MEDS: VANCOMYCIN HCL 1,500 MG in DEXTROSE 5%-WATER 250 ML IV SCH ×3 (03:06→17:36)
[2018-11-28] MEDS: GABAPENTIN 300 MG CAPSULE PO SCH ×3 (06:27→21:43)
[2018-11-28] MEDS: MEROPENEM 1 GM in NORMAL SALINE 50 ML IV SCH ×3 (06:27→21:44)
[2018-11-28 06:58] LABS: ABSOLUTE EOSINOPHILS # (AUTO) 0.1 10^3/uL (0.0-0.6); ABSOLUTE LYMPHOCYTES (AUTO) 1.2 10^3/uL (0.5-4.7); ABSOLUTE MONOCYTES (AUTO) 0.7 10^3/uL (0.1-1.4); ABSOLUTE NEUT (AUTO) 5.1 10^3/uL (1.7-8.2); BASOPHILS % (AUTO) 0.7 % (0-2); EOSINOPHILS % (AUTO) 0.7 % (0-6); HEMATOCRIT 32.8 % (37.9-51.0); HEMOGLOBIN 11.3 g/dL (13.5-17.0); LYMPHOCYTES % (AUTO) 16.6 % (13-45); MEAN CORPUSCULAR HEMOGLOBIN 28.2 pg (27.0-33.4); MEAN CORPUSCULAR HGB CONC 34.6 g/dL (32.0-36.0); MEAN CORPUSCULAR VOLUME 81 fl (80-97); MONOCYTES % (AUTO) 10.3 % (3-13); PLATELET COUNT 140 10^3/uL (150-450); RED BLOOD COUNT 4.03 10^6/uL (4.35-5.55); RED CELL DISTRIBUTION WIDTH 15.4 % (11.5-14.0); SEGMENTED NEUTROPHILS % (AUTO) 71.7 % (42-78); TOTAL CELLS COUNTED % (AUTO) 100 %; WHITE BLOOD COUNT 7.1 10^3/uL (4.0-10.5)
[2018-11-28 07:08] LABS: ARTERIAL BLOOD BASE EXCESS -2.5 mmol/L; ARTERIAL BLOOD FIO2 35%; ARTERIAL BLOOD H2CO3 0.66 mmol/L (1.05-1.35); ARTERIAL BLOOD HCO3 18.4 mmol/L (20-24); ARTERIAL BLOOD O2 SATURATION 96.8 % (94-98); ARTERIAL BLOOD PCO2 21.8 mmHg (35-45); ARTERIAL BLOOD PH 7.54 (7.35-7.45); ARTERIAL BLOOD PO2 74.9 mmHg (80-100); ARTERIAL BLOOD TOTAL CO2 19.1 mmol/L (23-27)
[2018-11-28 07:15] LABS: PHOSPHORUS 3.3 mg/dL (2.5-4.5)
--- NOTE | 2018-11-28 09:02 | RADIOLOGY REPORT (SQ) ---
EXAM DESCRIPTION: CHEST SINGLE VIEW COMPLETED DATE/TIME: 11/28/2018 6:15 am REASON FOR STUDY: pneumonia COMPARISON: 11/27/2018 NUMBER OF VIEWS: One view. TECHNIQUE: Single frontal radiographic image of the chest acquired. LIMITATIONS: None. FINDINGS: LUNGS AND PLEURA: Improved aeration with residual airspace disease in the lower lobes. No pneumothorax. MEDIASTINUM AND HEART: Stable heart size and mediastinal structures. SUPPORT DEVICES: Appropriate location without change. BONY STRUCTURES: No acute findings. HARDWARE: None. OTHER: No other significant finding. IMPRESSION: Interval improvement. No pneumothorax. Reading location - IP/workstation name: [email or web address]
[2018-11-28] MEDS: MAGNESIUM SULFATE/D5W 1 GM/100 ML RTUPB IV SCH ×3 (09:54→13:03)
[2018-11-28] MEDS: AMLODIPINE BESYLATE 10 MG TABLET PO SCH (11:01)
[2018-11-28] MEDS: BACLOFEN 20 MG TABLET PO SCH ×4 (11:02→21:43)
[2018-11-28] MEDS: ENOXAPARIN SODIUM INJ 40 MG/0.4 ML DISP.SYRIN SUBCUT SCH (11:02)
[2018-11-28] MEDS: ENALAPRIL MALEATE 10 MG TABLET PO SCH (11:02)
[2018-11-28] MEDS: PAROXETINE HCL 20 MG TABLET PO SCH (11:03)
[2018-11-28 11:22] LABS: VANCOMYCIN,TROUGH 11.6 ug/mL (5.0-20.0)
--- NOTE | 2018-11-28 11:56 | PDOC PROGRESS REPORT ---
Subjective Progress Note for:: 11/28/18 Subjective:: 11.28.18: Patient has been on PSV wean and tolerating for past 18 hours. Met suitability criteria for liberation from ventilator and was successfully weaned off during rounds. Able to phonate after extubation. No active complaints. Hemodynamics have improved as far as elevation in Bp. No fever. Secretions have improved. Discussion regarding his situation and reason for admission occurred. Did mention Percocet but his spouse says that the Percocet is locked up. Patient does not endorse that he overdosed on any medications and does not know why this keeps happening. When asked about possible sleep apnea is spouse says that he does snore but does not recall whether he stops breathing or not. Patient was told that he required a sleep study at some point. Noted MRSA on respiratory culture as well as Klebsiella 11.27.18: Patient's Bp has improved. He developed increase in secretions on pressure support wean. He developed some hypoxia last evening during suctioning requiring transition to conventional ventilation. We also started antibiotics because of the secretions. His chest x-ray shows a minimal mixed interstitial alveolar pattern in the left lung. He has had a low-grade chair for the last 3 or 4 days without any increase. He is more responsive and starting to follow commands. He does become agitated. We did start him on some of his home antispasmodic and pain medications as well as his antidepressants and psyc hotropic drugs in concern for withdrawal pattern. Is also had a good response to diuretic. 11.26.18: Patient's neurological status appears slightly improved. Maintained on Dexmedetomidine. His blood pressures have been elevated with discontinuation of propofol. He is also been off all his home psychotropic medications. No hyperthermia or seizures have been noted. 11.25.18:Patient was transitioned to pressure support ventilation placed on Precedex. He has had some improvement in his responses but not significant enough to allow for liberation from mechanical ventilation. Family available for further discussions. Review of his medications that could potentially have caused his situation was done. Multiple mood altering drugs were noted to be part of his armamentarium. He shows no evidence of hyperthermia or myoclonus. Reason For Visit: INADVERTANT OD,ASPIRATION,VENTILATOR Physical Exam Vital Signs: Temp Pulse Resp BP Pulse Ox 99.9 F 67 21 H 156/77 H 97 11/28/18 06:00 11/27/18 20:00 11/28/18 06:00 11/27/18 16:00 11/28/18 06:00 Intake & Output 11/27/18 11/28/18 11/29/18 06:59 06:59 06:59 Intake Total 2639.4 1695.2 Output Total 4640 2330 Balance -2000.6 -634.8 Weight 118.8 kg 115.1 kg Physical Exam: Nontoxic, ill, obese, NAD. Seen prior to and after extubation. General appearance: PRESENT: no acute distress, cooperative, disheveled, morbidly obese Head exam: PRESENT: atraumatic, normocephalic Eye exam: PRESENT: conjunctiva pink, EOMI, PERRLA. ABSENT: conjunctival injection, nystagmus, scleral icterus Mouth exam: PRESENT: moist, neck supple Teeth exam: PRESENT: edentulous Neck exam: PRESENT: full ROM. ABSENT: carotid bruit, JVD, tenderness, thyromegaly Respiratory exam: PRESENT: clear to auscultation wan, unlabored. ABSENT: accessory muscle use, stridor - post extubation, wheezes Cardiovascular exam: PRESENT: RRR, +S1, +S2. ABSENT: systolic murmur Pulses: PRESENT: normal carotid pulses, +1 pedal pulses bilateral Vascular exam: PRESENT: normal capillary refill. ABSENT: pallor GI/Abdominal exam: PRESENT: normal bowel sounds, soft. ABSENT: distended, firm, guarding, hernia, mass, Collado's sign, organolmegaly, rebound, rigid, tenderness Rectal exam: PRESENT: deferred Gentrourinary exam: PRESENT: indwelling catheter Extremities exam: PRESENT: pedal edema. ABSENT: joint swelling Additional comments: Mild anasarca Musculoskeletal exam: PRESENT: normal inspection. ABSENT: tenderness Neurological exam: PRESENT: alert, awake, oriented to person, oriented to place, CN II-XII grossly intact. ABSENT: oriented to time, oriented to situation, motor sensory deficit, aphasic Psychiatric exam: PRESENT: appropriate affect Focused psych exam: ABSENT: delusional, paranoid, pressured speech, psychomotor agitation, restlessness Skin exam: PRESENT: intact. ABSENT: abrasion, cyanosis, erythema, jaundice, mottled, pallor, petechiae, rash, urticaria, vesicles Results Laboratory Results: 11/28/18 06:40 11/27/18 18:28 11/27/18 11/27/18 11/28/18 14:37 18:28 06:40 WBC RBC Hgb Hct MCV MCH MCHC RDW Plt Count Seg Neutrophils % Carbonic Acid 0.80 L 0.66 L HCO3/H2CO3 Ratio 24:1 27:1 ABG pH 7.48 H 7.54 H ABG pCO2 26.5 L 21.8 L ABG pO2 69.5 L 74.9 L ABG HCO3 19.4 L 18.4 L ABG O2 Saturation 95.4 96.8 ABG Base Excess -2.7 -2.5 FiO2 40 35% Sodium 143.9 Potassium 3.4 L Chloride 114 H Carbon Dioxide 21 L Anion Gap 9 BUN 18 Creatinine 0.62 Est GFR ( Amer) > 60 Glucose 115 H Calcium 8.1 L 11/28/18 06:40 WBC 7.1 RBC 4.03 L Hgb 11.3 L Hct 32.8 L MCV 81 MCH 28.2 MCHC 34.6 RDW 15.4 H Plt Count 140 L Seg Neutrophils % 71.7 Carbonic Acid HCO3/H2CO3 Ratio ABG pH ABG pCO2 ABG pO2 ABG HCO3 ABG O2 Saturation ABG Base Excess FiO2 Sodium Potassium Chloride Carbon Dioxide Anion Gap BUN Creatinine Est GFR ( Amer) Glucose Calcium 11/26/18 10:00 Tracheal Aspirate Gram Stain - Final 11/24/18 11/24/18 11/25/18 13:00 13:00 12:51 Creatine Kinase 102 88 CK-MB (CK-2) 2.45 Troponin I < 0.012 Impressions: Head CT 11/24/18 15:38 IMPRESSION: NORMAL BRAIN CT WITHOUT CONTRAST. EVIDENCE OF ACUTE STROKE: NO. KUB X-Ray 11/27/18 00:00 IMPRESSION: Colonic distention. Most likely nonobstructive. Assessment & Plan - Diagnosis (1) Encephalopathy due to metabolic factor or toxin Is this a current diagnosis for this admission?: Yes (2) Acute respiratory failure with hypoxia Is this a current diagnosis for this admission?: Yes (3) Drug overdose, multiple drugs Qualifiers: Encounter type: initial encounter Injury intent: undetermined intent Qualified Code(s): T50.914A - Poisoning by multiple unspecified drugs, medic aments and biological substances, undetermined, initial encounter Is this a current diagnosis for this admission?: Yes (4) Obesity (BMI 30.0-34.9) Is this a current diagnosis for this admission?: Yes (5) Hypertension Qualifiers: Hypertension type: unspecified secondary hypertension Qualified Code(s): I15.9 - Secondary hypertension, unspecified; I15 - Secondary hypertension Is this a current diagnosis for this admission?: Yes (6) Chronic pain disorder Is this a current diagnosis for this admission?: Yes (7) Schizo affective schizophrenia Is this a current diagnosis for this admission?: Yes (8) Dyskinesia, tardive Is this a current diagnosis for this admission?: Yes (9) Tracheitis due to Staphylococcus infection Is this a current diagnosis for this admission?: Yes (10) Aspiration into respiratory tract Qualifiers: Encounter type: initial encounter Qualified Code(s): T17.908A - Unspecified foreign body in respiratory tract, part unspecified causing other injury, initial encounter Is this a current diagnosis for this admission?: Yes (11) Klebsiella infect Is this a current diagnosis for this admission?: Yes (12) Opioid dependence in controlled environment Is this a current diagnosis for this admission?: Yes Plan: Patient's spouse controls in safe, locked box - Time Time Spent with patient: 35 or more minutes Total Critical Time (Minutes): 60 - multiple exam for extubation suitability, airway protection Medications reviewed and adjusted accordingly: Yes Anticipated discharge: Home with Homehealth Within: within 36 hours - Inpatient Certification Medical Necessity: Significant Comorbidiites Make Outpatient Treatment Too Risky, Need for Neurological Checks, Need for Pain Control, Need for IV Antibiotics Post Hospital Care: D/C Insurance Law Specialist Documentation - Plan Summary Plan Summary: 11.28.18: The patient has successfully weaned off sedation and mechanical ventilation. He does not have any evidence of stridor or post extubation failure. As far as his situation it appears that he may be accidentally overdosing however it is difficult to know given his schizoaffective background. Had a discussion with his spouse Martin Partida, who states that he is not aware that he overdosed or is purposely taking extra medications. They did find empty pill bottles at the scene (Paxil?). His prior and current presentation would point to medication mishap. Whether this is accidental or purposeful is yet to be determined. We will ask psychiatry to help us in assistance with this. He does have tardive dyskinesia and has been on Cogentin confirming his psychiatric diagnosis. Far as the MRSA and Klebsiella found on Gram stain his chest x-ray showed minimal changes and he was successfully weaned from the ventilator. This may have represented a tracheitis or colonization. We do know that patients who are found in this type of situation often aspirate and the organisms commonly are staph and Klebsiella type organisms. Continue treatment for a total of 5 to 7 days. This point we will decannulate (remove arterial catheter) as well as remove schwarz. [place] on what his says and with the patient has endorsed he does take narcotics. The assures us that it is maintained in a safe box under lock and myers. This would change his diagnosis to chronic opioid dependence in a safe setting. This will need to be factored into his medications. I have started him back on his Neurontin and his baclofen and concern for withdrawal. Is to be tolerating this well. Will be prudent to watch for sleep apnea while in the ICU. 19: At this point patient is improving and have started ventilator weaning process. He does have significant chronic pain syndrome but is not on opioids and his urine was negative for opioids. Does take various muscle relaxants and is on Neurontin for pain control. He does have significant depression and takes a number of medications to control pain and anxiety. Again not taking any narcotics. Today we will continue the weaning process as well as diuresing continuously. Do not feel that this is a ventilator acquired pneumonia however the patient did have an aspiration event on admission it is conceivable that he could develop an aspiration pneumonitis. That being said given the amount of secretions and the possible tracheitis I have not added antibiotics until cultures can be obtained. We do not have the capability for procalcitonin which would also be helpful. We will increase Neurontin start weaning Precedex and continue vent weaning. Anticipate ability to liberate from the ventilator in the next 24 hours. 19: Patient continues to improve but slow neurologic recovery. No nystagmus or evidence to support nonconvulsive status epilepticus. He does have increase in blood pressure which may be secondary to withdrawal of psychotropic medications. Continue to monitor for serotonin withdrawal symptoms as well as recovery from mood altering medications. Will start antihypertensives if blood pressure continues to be elevated. Will attempt to speak to his family and/or significant other to evaluate for other etiologic possibilities for his condition. Critical care ultrasound was done to evaluate fluid status. Able to clearly distinguish IVC. Chest x-ray shows slight increase in interstitial pattern and he is positive from a fluid balance standpoint. We will begin diuresis. Patient has a non-anion gap metabolic acidosis that may be related to sodium chloride. I have asked for urine electrolytes including urine chloride to determine whether this is an RTA from the medications that he took. Have started vent weaning and spontaneous breathing trials. We will need to start his Neurontin at low-dose to prevent withdrawal related seizures The patient has also been on baclofen and will try to gently reintroduce this as well. Extensive review of his home medications and found that the patient is also on an DARIN inhibitor (enalapril 10 mg daily). Patient has been taking ibuprofen as well as hemp (CBD) oil. With the above it appears that the patient has a chronic pain syndrome and will need to address this. No doubt this may be leading to depression and the tendency for drug overdose whether intentional or accidental. Continue with Precedex to control symptoms. 19: Patient continues to show neurological improvement with multiple examinations over time. Looking his medications this could possibly be the combined effect of Haldol, fluoxetine, Atarax, and gabapentin. Does take buspirone and benzt ropine. We will start nutritional support. Start Precedex to allow for neurological examination Begin vent wean with proposed liberation when neurological status improves 11.28.18 Patient seen in multidisciplinary rounds. Care of in ICU patient is ongoing and dynamic. This note represents a static representation of ongoing care in the last 24 hours. Orders given, completed and entered via computer are not always reflective of actual time done. Medical power of performance improvement specialist is: Patient requires ICU care secondary to recent liberation from ventilator and removal of psychoactive medications
[2018-11-28] MEDS: METHOCARBAMOL 750 MG TABLET PO SCH ×3 (15:23→21:44)
[2018-11-28] MEDS: THIAMINE HCL 100 MG TABLET PO SCH (21:42)
[2018-11-28] MEDS ORDERED: ONDANSETRON HCL INJ/PF 4 MG/2 ML SDV IV ONE (22:00)
[2018-11-29] MEDS: VANCOMYCIN HCL 1,500 MG in DEXTROSE 5%-WATER 250 ML IV SCH ×2 (02:36→12:36)
[2018-11-29 04:51] LABS: ANION GAP 9 (5-19); BLOOD UREA NITROGEN 14 mg/dL (7-20); CALCIUM 8.1 mg/dL (8.4-10.2); CARBON DIOXIDE 24 mmol/L (22-30); CHLORIDE 109 mmol/L (98-107); GLUCOSE 114 mg/dL (75-110)
[2018-11-29 04:56] LABS: POTASSIUM 2.8 mmol/L (3.6-5.0)
[2018-11-29] MEDS: MEROPENEM 1 GM in NORMAL SALINE 50 ML IV SCH ×3 (07:05→22:55)
[2018-11-29] MEDS: GABAPENTIN 300 MG CAPSULE PO SCH ×3 (07:06→22:55)
[2018-11-29] MEDS: POTASSIUM CHLORIDE 20 MEQ/50 ML RTU IV SCH ×5 (07:54→22:54)
[2018-11-29 08:09] LABS: VENOUS BLOOD BASE EXCESS 0.6 mmol/L; VENOUS BLOOD HCO3 23.2 mmol/L (20-32); VENOUS BLOOD PCO2 31.5 mmHg (35-63); VENOUS BLOOD PH 7.49 (7.30-7.42)
[2018-11-29] MEDS ORDERED: POLYETHYLENE GLYCOL 3350 POWDER 17 GM/1 PACKET PO PRN (09:45)
[2018-11-29] MEDS ORDERED: SENNOSIDES/DOCUSATE 8.6-50 MG 1 EACH TABLET PO PRN (09:45)
[2018-11-29 10:38] LABS: VANCOMYCIN,TROUGH 13.4 ug/mL (5.0-20.0)
[2018-11-29] MEDS: AMLODIPINE BESYLATE 10 MG TABLET PO SCH (10:44)
[2018-11-29] MEDS: THIAMINE HCL 100 MG TABLET PO SCH ×2 (10:44→22:55)
[2018-11-29] MEDS: LACTULOSE SYRUP 20 GM/30 ML UDCUP PO SCH ×2 (10:44→18:08)
[2018-11-29] MEDS: ENOXAPARIN SODIUM INJ 40 MG/0.4 ML DISP.SYRIN SUBCUT SCH (10:45)
[2018-11-29] MEDS: PAROXETINE HCL 20 MG TABLET PO SCH (10:46)
[2018-11-29] MEDS: METHOCARBAMOL 750 MG TABLET PO SCH ×4 (10:46→22:56)
[2018-11-29] MEDS: BACLOFEN 20 MG TABLET PO SCH ×4 (10:47→22:56)
[2018-11-29] MEDS: ENALAPRIL MALEATE 10 MG TABLET PO SCH (10:47)
--- NOTE | 2018-11-29 10:56 | PSYCHOLOGICAL NOTE ---
Psych Note - Psych Note Date seen by psych provider: 11/28/18 Time seen by psych provider: 16:00 Psych Note: Reason for consult: Depression Behavioral health was contacted to check in on patient with a history of depression. Patient denied suicidal and homicidal ideations. Patient denies the desire to . Patient reports I took two Prozac by mistake. Patient stated he typically does well on his medications, he just forgot he had already taken his daily dose of Prozac. Patient denied any further concerns. Patient is alert and oriented to person, place, time and circumstance. Mood is euthymic with congruent affect as evidenced by smiling, laughing and engaging with clinician. Patient denies suicidal and homicidal ideation. Delusions are absent and behavior is congruent with an intact- reality based presentation (i.e. organized and linear thought processes). Patient denies auditory and visual hallucinations. There is no observed behavior that suggests patient is responding to internal stimuli. Eye contact is good. Conversational speech is within normal rate, tone, and prosody. Intellectual ability appears to be within average range. Attention and concentration are good. Insight, judgment, and impulse control are good. DSM Diagnosis: Per reported history, depression Medication recommendations per [facility] contracted psychiatrist Dr. Robyn DORAN is as follows: NONE Impression/Plan: Patient is cleared from acute psychiatric services. Patient does not meet IVC criteria per [place] GS 122C. At this time, patient is demonstrating insight and judgment into current situation and is able to thoughtfully and purposefully participate in plan of care development. Patient denies suicidal and homicidal ideation. Patient denies auditory and visual hallucinations. Patient identified a support system. Dr. Figueroa was consulted on the care and management of this patient; hospitalist made aware. Please re- consult if needed.
[2018-11-29 15:19] LABS: ANION GAP 8 (5-19); BLOOD UREA NITROGEN 12 mg/dL (7-20); CALCIUM 8.1 mg/dL (8.4-10.2); CARBON DIOXIDE 23 mmol/L (22-30); CHLORIDE 110 mmol/L (98-107); GLUCOSE 106 mg/dL (75-110); POTASSIUM 3.3 mmol/L (3.6-5.0)
--- NOTE | 2018-11-29 20:25 | PDOC PROGRESS REPORT ---
Subjective Progress Note for:: 11/29/18 Subjective:: 11.29.18: Patient was successfully extubated yesterday without any respiratory compromise or sequelae. Of note he had some stomach discomfort in the form of nausea last evening and had one episode of emesis. He is without stomach pain. He has had urinary retention and has had 2 straight catheterization to relieve bladder pressure. 11.28.18: Patient has been on PSV wean and tolerating for past 18 hours. Met suitability criteria for liberation from ventilator and was successfully weaned off during rounds. Able to phonate after extubation. No active complaints. Hemodynamics have improved as far as elevation in Bp. No fever. Secretions have improved. Discussion regarding his situation and reason for admission occurred. Did mention Percocet but his spouse says that the Percocet is locked up. Patient does not endorse that he overdosed on any medications and does not know why this keeps happening. When asked about possible sleep apnea is spouse says that he does snore but does not recall whether he stops breathing or not. Iwona ent was told that he required a sleep study at some point. Noted MRSA on respiratory culture as well as Klebsiella 11.27.18: Patient's Bp has improved. He developed increase in secretions on pressure support wean. He developed some hypoxia last evening during suctioning requiring transition to conventional ventilation. We also started antibiotics because of the secretions. His chest x-ray shows a minimal mixed interstitial alveolar pattern in the left lung. He has had a low-grade chair for the last 3 or 4 days without any increase. He is more responsive and starting to follow commands. He does become agitated. We did start him on some of his home antispasmodic and pain medications as well as his antidepressants and psychotropic drugs in concern for withdrawal pattern. Is also had a good response to diuretic. 11.26.18: Patient's neurological status appears slightly improved. Maintained on Dexmedetomidine. His blood pressures have been elevated with discontinuation of propofol. He is also been off all his home psychotropic medications. No hyperthermia or seizures have been noted. 11.25.18:Patient was transitioned to pressure support ventilation placed on Precedex. He has had some improvement in his responses but not significant enough to allow for liberation from mechanical ventilation. Family available for further discussions. Review of his medications that could potentially have caused his situation was done. Multiple mood altering drugs were noted to be part of his armamentarium. He shows no evidence of hyperthermia or myoclonus. Reason For Visit: INADVERTANT OD,ASPIRATION,VENTILATOR Physical Exam Vital Signs: Temp Pulse Resp BP Pulse Ox 98.7 F 109 H 22 H 148/86 H 94 11/28/18 16:00 11/28/18 22:00 11/29/18 06:00 11/29/18 05:33 11/29/18 06:00 Intake & Output 11/27/18 11/28/18 11/29/18 06:59 06:59 06:59 Intake Total 2639.4 1995.2 780 Output Total 4640 2330 1400 Balance -2000.6 -334.8 -620 Weight 118.8 kg 115.1 kg Physical Exam: Present nontoxic edentulous nonintubated 43-year-old male no acute distress awake alert oriented x3 General appearance: PRESENT: no acute distress, cooperative, disheveled, morbidly obese Head exam: PRESENT: atraumatic, normocephalic Eye exam: PRESENT: conjunctiva pink, EOMI, PERRLA. ABSENT: conjunctival injection, nystagmus, scleral icterus Mouth exam: PRESENT: moist, neck supple Teeth exam: PRESENT: edentulous Neck exam: PRESENT: full ROM. ABSENT: carotid bruit, JVD, lymphadenopathy, tenderness, thyromegaly, tracheal deviation Respiratory exam: PRESENT: clear to auscultation wan, unlabored. ABSENT: accessory muscle use, tachypnea Cardiovascular exam: PRESENT: RRR, +S1, +S2 Pulses: PRESENT: normal carotid pulses, +2 pedal pulses bilateral Vascular exam: PRESENT: normal capillary refill GI/Abdominal exam: PRESENT: firm, Collado's sign, soft. ABSENT: ascites, diminished bowel sounds, distended, hypoactive bowel sounds, mass, rebound, rigid, tenderness Gentrourinary exam: PRESENT: indwelling catheter Extremities exam: PRESENT: pedal edema. ABSENT: joint swelling Musculoskeletal exam: PRESENT: normal inspection. ABSENT: deformity, dislocation Neurological exam: PRESENT: alert, awake, oriented to person, oriented to place, oriented to time, oriented to situation, CN II-XII grossly intact. ABSENT: motor sensory deficit Psychiatric exam: PRESENT: appropriate affect Focused psych exam: ABSENT: psychomotor agitation, restlessness Skin exam: PRESENT: intact, normal color, urticaria, vesicles. ABSENT: cyanosis , erythema, jaundice, mottled, petechiae Results Laboratory Results: 11/28/18 06:40 11/29/18 04:17 11/28/18 11/28/18 11/28/18 06:40 06:40 06:40 WBC 7.1 RBC 4.03 L Hgb 11.3 L Hct 32.8 L MCV 81 MCH 28.2 MCHC 34.6 RDW 15.4 H Plt Count 140 L Seg Neutrophils % 71.7 Carbonic Acid 0.66 L HCO3/H2CO3 Ratio 27:1 ABG pH 7.54 H ABG pCO2 21.8 L ABG pO2 74.9 L ABG HCO3 18.4 L ABG O2 Saturation 96.8 ABG Base Excess -2.5 FiO2 35% Sodium Potassium Chloride Carbon Dioxide Anion Gap BUN Creatinine Est GFR ( Amer) Glucose Calcium Phosphorus 3.3 Magnesium 1.6 11/29/18 04:17 WBC RBC Hgb Hct MCV MCH MCHC RDW Plt Count Seg Neutrophils % Carbonic Acid HCO3/H2CO3 Ratio ABG pH ABG pCO2 ABG pO2 ABG HCO3 ABG O2 Saturation ABG Base Excess FiO2 Sodium 142.0 Potassium 2.8 L* Chloride 109 H Carbon Dioxide 24 Anion Gap 9 BUN 14 Creatinine 0.54 Est GFR ( Amer) > 60 Glucose 114 H Calcium 8.1 L Phosphorus Magnesium 2.0 11/26/18 10:00 Tracheal Aspirate Gram Stain - Final 11/26/18 10:00 Tracheal Aspirate Sputum Culture - Final Mrsa (Meth Resis Staph Aureus) Klebsiella Pneumoniae Normal Stephanie Absent 11/24/18 11/24/18 11/25/18 13:00 13:00 12:51 Creatine Kinase 102 88 CK-MB (CK-2) 2.45 Troponin I < 0.012 Impressions: Head CT 11/24/18 15:38 IMPRESSION: NORMAL BRAIN CT WITHOUT CONTRAST. EVIDENCE OF ACUTE STROKE: NO. KUB X-Ray 11/27/18 00:00 IMPRESSION: Colonic distention. Most likely nonobstructive. Chest X-Ray 11/28/18 06:00 IMPRESSION: Interval improvement. No pneumothorax. Assessment & Plan - Diagnosis (1) Encephalopathy due to metabolic factor or toxin Is this a current diagnosis for this admission?: Yes (2) Acute respiratory failure with hypoxia Is this a current diagnosis for this admission?: Yes (3) Drug overdose, multiple drugs Qualifiers: Encounter type: initial encounter Injury intent: undetermined intent Qualified Code(s): T50.914A - Poisoning by multiple unspecified drugs, medicaments and biological substances, undetermined, initial encounter Is this a current diagnosis for this admission?: Yes (4) Obesity (BMI 30.0-34.9) Is this a current diagnosis for this admission?: Yes (5) Hypertension Qualifiers: Hypertension type: unspecified secondary hypertension Qualified Code(s): I15.9 - Secondary hypertension, unspecified; I15 - Secondary hypertension Is this a current diagnosis for this admission?: Yes (6) Chronic pain disorder Is this a current diagnosis for this admission?: Yes (7) Schizo affective schizophrenia Is this a current diagnosis for this admission?: Yes (8) Dyskinesia, tardive Is this a current diagnosis for this admission?: Yes (9) Tracheitis due to Staphylococcus infection Is this a current diagnosis for this admission?: Yes (10) Aspiration into respiratory tract Qualifiers: Encounter type: initial encounter Qualified Code(s): T17.908A - Unspecified foreign body in respiratory tract, part unspecified causing other injury, initial encounter Is this a current diagnosis for this admission?: Yes (11) Klebsiella infect Is this a current diagnosis for this admission?: Yes (12) Opioid dependence in controlled environment Is this a current diagnosis for this admission?: Yes - Time Time Spent with patient: 35 or more minutes Total Critical Time (Minutes): 35 - [id number] Level of Care: ICU Medications reviewed and adjusted accordingly: Yes Within: within 36 hours - Inpatient Certification Based on my medical assessment, after consideration of the patient's comorbidities, presenting symptoms, or acuity I expect that the services needed warrant INPATIENT care.: Yes I certify that my determination is in accordance with my understanding of Medicare's requirements for reasonable and necessary INPATIENT services [42 CFR 412.3e].: Yes Medical Necessity: Need Close Monitoring Due to Risk of Patient Decompensation, Need for Neurological Checks, Need for Pain Control, Risk of Complication if Not Cared For in Hospital - Plan Summary Plan Summary: 11.29.18: Patient continues to improve and we will transition to supportive post-illness care. Guarded a carbohydrate restricted diet. Physical therapy has been ordered. Appreciate psychiatry evaluating the patient. Not appear to be an intentional overdose however this is a second time in a short period of time. His urinary retention and will need to retain the Schwarz until he is fully ambulating. If this does not help the situation he will need urology follow-up. Patient's blood pressure is better controlled. New antibiotics for 5 to 7 days for aspiration and tracheitis. Adjustments of his medications will need to be done by psychiatry Patient can be downgraded and have contacted Dr. Steward and Neeta who is covering He is at high risk for recurrence. Patient seen in multidisciplinary rounds. Care of in ICU patient is ongoing and dynamic. This note represents a static representation of care in the last 12-24 hours. Orders given, completed and entered via computer are not always reflective of actual time done. Medical power of baker test is: Patient requires ICU care secondary to 11.28.18: The patient has successfully weaned off sedation and mechanical ventilation. He does not have any evidence of stridor or post extubation failure. As far as his situation it appears that he may be accidentally overdosing however it is difficult to know given his schizoaffective background. Had a discussion with his spouse Martin Partida, who states that he is not aware that he overdosed or is purposely taking extra medications. They did find empty pill bottles at the scene (Paxil?). His prior and current presentation would point to medication mishap. Whether this is accidental or purposeful is yet to be determined. We will ask psychiatry to help us in assistance with this. He does have tardive dyskinesia and has been on Cogentin confirming his psychiatric diagnosis. Far as the MRSA and Klebsiella found on Gram stain his chest x-ray showed minimal changes and he was successfully weaned from the ventilator. This may have represented a tracheitis or colonization. We do know that patients who are found in this type of situation often aspirate and the organisms commonly are staph and Klebsiella type organisms. Continue treatment for a total of 5 to 7 days. This point we will decannulate (remove arterial catheter) as well as remove schwarz. [place] on what his says and with the patient has endorsed he does take narcotics. The assures us that it is maintained in a safe box under lock and myers. This would change his diagnosis to chronic opioid dependence in a safe setting. This will need to be factored into his medications. I have started him back on his Neurontin and his baclofen and concern for withdrawal. Is to be tolerating this well. Will be prudent to watch for sleep apnea while in the ICU. 11.27.18: At this point patient is improving and have started ventilator weaning process. He does have significant chronic pain syndrome but is not on opioids and his urine was negative for opioids. Does take various muscle relaxants and is on Neurontin for pain control. He does have significant depression and takes a number of medications to control pain and anxiety. Again not taking any narcotics. Today we will continue the weaning process as well as diuresing continuously. Do not feel that this is a ventilator acquired pneumonia however the patient did have an aspiration event on admission it is conceivable that he could develop an aspiration pneumonitis. That being said given the amount of secretions and the possible tracheitis I have not added antibiotics until cultures can be obtained. We do not have the capability for procalcitonin which would also be helpful. We will increase Neurontin start weaning Precedex and continue vent weaning. Anticipate ability to liberate from the ventilator in the next 24 hours. 11.26.18: Patient continues to improve but slow neurologic recovery. No nystagmus or evidence to support nonconvulsive status epilepticus. He does have increase in blood pressure which may be secondary to withdrawal of psychotropic medications. Continue to monitor for serotonin withdrawal symptoms as well as recovery from mood altering medications. Will start antihype rtensives if blood pressure continues to be elevated. Will attempt to speak to his family and/or significant other to evaluate for other etiologic possibilities for his condition. Critical care ultrasound was done to evaluate fluid status. Able to clearly distinguish IVC. Chest x-ray shows slight increase in interstitial pattern and he is positive from a fluid balance standpoint. We will begin diuresis. Patient has a non-anion gap metabolic acidosis that may be related to sodium chloride. I have asked for urine electrolytes including urine chloride to determine whether this is an RTA from the medications that he took. Have started vent weaning and spontaneous breathing trials. We will need to start his Neurontin at low-dose to prevent withdrawal related seizures The patient has also been on baclofen and will try to gently reintroduce this as well. Extensive review of his home medications and found that the patient is also on an DARIN inhibitor (enalapril 10 mg daily). Patient has been taking ibuprofen as well as hemp (CBD) oil. With the above it appears that the patient has a chronic pain syndrome and will need to address this. No doubt this may be leading to depression and the tendency for drug overdose whether intentional or accidental. Continue with Precedex to control symptoms. 11.25.18: Patient continues to show neurological improvement with multiple examinations over time. Looking his medications this could possibly be the combined effect of Haldol, fluoxetine, Atarax, and gabapentin. Does take buspirone and benztropine. We will start nutritional support. Start Precedex to allow for neurological examination Begin vent wean with proposed liberation when neurological status improves 11.28.18 Patient seen in multidisciplinary rounds. Care of in ICU patient is ongoing and dynamic. This note represents a static representation of ongoing care in the last 24 hours. Orders given, completed and entered via computer are not always reflective of actual time done. Medical power of baker test is: Patient requires ICU care secondary to recent liberation from ventilator and removal of psychoactive medications
[2018-11-30] MEDS: VANCOMYCIN HCL 1,000 MG in DEXTROSE 5%-WATER 250 ML IV SCH ×6 (01:46→23:07)
[2018-11-30] MEDS: MEROPENEM 1 GM in NORMAL SALINE 50 ML IV SCH ×3 (05:01→22:41)
[2018-11-30] MEDS: GABAPENTIN 300 MG CAPSULE PO SCH ×4 (05:44→22:39)
[2018-11-30 06:50] LABS: ABSOLUTE EOSINOPHILS # (AUTO) 0.1 10^3/uL (0.0-0.6); ABSOLUTE LYMPHOCYTES (AUTO) 1.3 10^3/uL (0.5-4.7); ABSOLUTE MONOCYTES (AUTO) 0.9 10^3/uL (0.1-1.4); ABSOLUTE NEUT (AUTO) 3.8 10^3/uL (1.7-8.2); BASOPHILS % (AUTO) 0.5 % (0-2); EOSINOPHILS % (AUTO) 1.8 % (0-6); HEMATOCRIT 35.5 % (37.9-51.0); HEMOGLOBIN 12.1 g/dL (13.5-17.0); LYMPHOCYTES % (AUTO) 20.9 % (13-45); MEAN CORPUSCULAR HEMOGLOBIN 27.7 pg (27.0-33.4); MEAN CORPUSCULAR HGB CONC 33.9 g/dL (32.0-36.0); MEAN CORPUSCULAR VOLUME 82 fl (80-97); MONOCYTES % (AUTO) 14.4 % (3-13); PLATELET COUNT 194 10^3/uL (150-450); RED BLOOD COUNT 4.35 10^6/uL (4.35-5.55); RED CELL DISTRIBUTION WIDTH 15.1 % (11.5-14.0); SEGMENTED NEUTROPHILS % (AUTO) 62.4 % (42-78); TOTAL CELLS COUNTED % (AUTO) 100 %
[2018-11-30 06:55] LABS: ANION GAP 8 (5-19); BLOOD UREA NITROGEN 12 mg/dL (7-20); CALCIUM 8.3 mg/dL (8.4-10.2); CARBON DIOXIDE 24 mmol/L (22-30); CHLORIDE 112 mmol/L (98-107); GLUCOSE 117 mg/dL (75-110); PHOSPHORUS 3.3 mg/dL (2.5-4.5); POTASSIUM 3.4 mmol/L (3.6-5.0)
[2018-11-30] MEDS: THIAMINE HCL 100 MG TABLET PO SCH ×2 (09:40→22:40)
[2018-11-30] MEDS: BACLOFEN 20 MG TABLET PO SCH ×4 (09:40→22:38)
[2018-11-30] MEDS: ENALAPRIL MALEATE 10 MG TABLET PO SCH ×2 (09:40→16:25)
[2018-11-30] MEDS: METHOCARBAMOL 750 MG TABLET PO SCH ×2 (09:40→14:05)
[2018-11-30] MEDS: PAROXETINE HCL 20 MG TABLET PO SCH (09:40)
[2018-11-30] MEDS: AMLODIPINE BESYLATE 10 MG TABLET PO SCH (09:40)
[2018-11-30] MEDS: ENOXAPARIN SODIUM INJ 40 MG/0.4 ML DISP.SYRIN SUBCUT SCH (09:41)
[2018-11-30] MEDS: LACTULOSE SYRUP 20 GM/30 ML UDCUP PO SCH ×3 (09:41→18:16)
--- NOTE | 2018-11-30 15:16 | PDOC PROGRESS REPORT ---
Subjective Progress Note for:: 11/30/18 Subjective:: Patient was transferred from ICU to the medical floor last night, he presented with drug overdose, he required mechanical ventilation, he has aspiration pneumonia, sputum culture grew MRSA and Klebsiella especially, presently on vancomycin and meropenem. I saw him today by the bedside, he has a history of schizophrenia, on chronic opioid therapy, he smokes very heavily 2 packs a day of cigarettes. On auscultation of his chest he has diffuse wheeze in both lung field, he complain of gas, abdomen is distended. Reason For Visit: INADVERTANT OD,ASPIRATION,VENTILATOR Physical Exam Vital Signs: Temp Pulse Resp BP Pulse Ox 98.5 F 108 H 18 124/88 H 90 L 11/30/18 10:53 11/30/18 14:00 11/30/18 10:53 11/30/18 10:53 11/30/18 10:53 Intake & Output 11/29/18 11/30/18 12/01/18 06:59 06:59 06:59 Intake Total 1160 1731 650 Output Total 2250 1800 Balance -1090 -69 650 Weight 116.8 kg 119 kg General appearance: PRESENT: no acute distress Eye exam: PRESENT: PERRLA Respiratory exam: PRESENT: wheezes Cardiovascular exam: PRESENT: +S1, +S2 GI/Abdominal exam: PRESENT: distended Neurological exam: PRESENT: alert Results Laboratory Results: 11/30/18 06:16 11/30/18 06:16 11/29/18 11/30/18 11/30/18 14:31 06:16 06:16 WBC 6.0 RBC 4.35 Hgb 12.1 L Hct 35.5 L MCV 82 MCH 27.7 MCHC 33.9 RDW 15.1 H Plt Count 194 Seg Neutrophils % 62.4 Sodium 141.2 143.8 Potassium 3.3 L 3.4 L Chloride 110 H 112 H Carbon Dioxide 23 24 Anion Gap 8 8 BUN 12 12 Creatinine 0.47 L 0.47 L Est GFR ( Amer) > 60 > 60 Glucose 106 117 H Calcium 8.1 L 8.3 L Phosphorus 3.3 Magnesium 2.1 2.0 11/24/18 13:47 Blood Blood Culture - Final NO GROWTH IN 5 DAYS 11/24/18 13:47 Blood Blood Culture - Final NO GROWTH IN 5 DAYS 10/11/24/18 11/25/18 13:00 13:00 12:51 Creatine Kinase 102 88 CK-MB (CK-2) 2.45 Troponin I < 0.012 Impressions: Head CT 11/24/18 15:38 IMPRESSION: NORMAL BRAIN CT WITHOUT CONTRAST. EVIDENCE OF ACUTE STROKE: NO. KUB X-Ray 11/27/18 00:00 IMPRESSION: Colonic distention. Most likely nonobstructive. Chest X-Ray 11/28/18 06:00 IMPRESSION: Interval improvement. No pneumothorax. Assessment & Plan - Diagnosis (1) Acute respiratory failure with hypoxia Is this a current diagnosis for this admission?: Yes Plan: Patient presently not requiring noninvasive positive pressure ventilation, on oxygen via nasal cannula, continue same (2) Aspiration into respiratory tract Qualifiers: Encounter type: subsequent encounter Qualified Code(s): T17.908D - Unspecified foreign body in respiratory tract, part unspecified causing other injury, subsequent encounter Is this a current diagnosis for this admission?: Yes Plan: Continue present IV antibiotic coverage including meropenem, vancomycin (3) Poisoning by multiple unspecified drugs, medicaments and biological substances, accidental (unintentional), initial encounter Is this a current diagnosis for this admission?: Yes (4) COPD with acute exacerbation Is this a current diagnosis for this admission?: Yes Plan: Patient is wheezing, is a heavy smoker, we will start IV Solu-Medrol - Time Time Spent with patient: 35 or more minutes Level of Care: IMCU Medications reviewed and adjusted accordingly: Yes
[2018-11-30] MEDS ORDERED: (PENDING PHARMACY ID) (Ondansetron Hcl [Zofran 4 Mg Tablet] 4 MG) PO PRN (15:17)
[2018-11-30] MEDS ORDERED: ONDANSETRON 4 MG TAB.RAPDIS PO PRN (15:22)
[2018-11-30] MEDS ORDERED: (PENDING PHARMACY ID) (Esomeprazole Magnesium [Esomeprazole Magnesium] 40 MG) PO SCH (15:30)
[2018-11-30] MEDS ORDERED: (PENDING PHARMACY ID) (Fluoxetine Hcl [Fluoxetine Hcl] 80 MG) PO SCH (15:30)
[2018-11-30] MEDS ORDERED: (PENDING PHARMACY ID) (Buspirone Hcl [Buspirone Hcl] 15 MG) PO SCH (15:30)
[2018-11-30] MEDS ORDERED: (PENDING PHARMACY ID) (Benztropine Mesylate [Benztropine Mesylate 2 Mg Tablet] 2 MG) PO SCH (15:30)
[2018-11-30] MEDS: AMLODIPINE BESYLATE 2.5 MG TABLET PO SCH ×2 (16:26→22:40)
[2018-11-30] MEDS: FLUOXETINE HCL 20 MG CAPSULE PO SCH (16:28)
[2018-11-30] MEDS: SIMETHICONE 80 MG TAB.CHEW PO PRN (16:28)
[2018-11-30] MEDS: FENOFIBRATE NANOCRYSTALLIZED 145 MG TABLET PO SCH (16:29)
[2018-11-30] MEDS: OXYCODONE HCL IR 5 MG TABLET PO PRN ×2 (16:29→22:40)
[2018-11-30] MEDS: METHYLPREDNISOLONE INJ 125 MG/2 ML SDV IV SCH ×2 (16:29→22:42)
[2018-11-30] MEDS: PANTOPRAZOLE SODIUM 40 MG TABLET.DR PO SCH (16:29)
[2018-11-30] MEDS ORDERED: HALOPERIDOL 5 MG TABLET PO SCH (18:00)
[2018-11-30] MEDS ORDERED: (PENDING PHARMACY ID) (Haloperidol [Haloperidol] 10 MG) PO SCH (18:00)
[2018-11-30] MEDS: TAMSULOSIN HCL 0.4 MG CAP.SR.24H PO SCH (18:17)
[2018-11-30] MEDS ORDERED: NICOTINE 21 MG/24 HR PATCH.TD24 TD ONE (20:00)
[2018-11-30] MEDS ORDERED: (PENDING PHARMACY ID) (Trazodone Hcl [Desyrel] 100 MG) PO SCH (22:00)
[2018-11-30] MEDS: ATORVASTATIN CALCIUM 20 MG TABLET PO SCH (22:38)
[2018-11-30] MEDS: BENZTROPINE MESYLATE 1 MG TABLET PO SCH (22:39)
[2018-11-30] MEDS: BUSPIRONE HCL 10 MG TABLET PO SCH (22:39)
[2018-11-30] MEDS: HALOPERIDOL 5 MG TABLET PO SCH (22:39)
[2018-11-30] MEDS: TRAZODONE HCL 50 MG TABLET PO SCH (22:40)
[2018-11-30] MEDS ORDERED: NICOTINE 21 MG/24 HR PATCH.TD24 ONE (23:04)
[2018-12-01] MEDS: SIMETHICONE 80 MG TAB.CHEW PO PRN ×2 (00:26→09:32)
[2018-12-01] MEDS: OXYCODONE HCL IR 5 MG TABLET PO PRN ×3 (04:40→18:14)
[2018-12-01] MEDS: VANCOMYCIN HCL 1,000 MG in DEXTROSE 5%-WATER 250 ML IV SCH (05:25)
[2018-12-01] MEDS: BUSPIRONE HCL 10 MG TABLET PO SCH ×3 (05:26→22:01)
[2018-12-01] MEDS: GABAPENTIN 300 MG CAPSULE PO SCH ×3 (05:26→22:01)
[2018-12-01] MEDS: METHYLPREDNISOLONE INJ 125 MG/2 ML SDV IV SCH ×3 (05:26→22:03)
[2018-12-01] MEDS: MEROPENEM 1 GM in NORMAL SALINE 50 ML IV SCH ×3 (05:27→22:02)
[2018-12-01 06:25] LABS: ANION GAP 9 (5-19); BLOOD UREA NITROGEN 13 mg/dL (7-20); CALCIUM 8.6 mg/dL (8.4-10.2); CARBON DIOXIDE 25 mmol/L (22-30); CHLORIDE 110 mmol/L (98-107); GLUCOSE 181 mg/dL (75-110); POTASSIUM 3.9 mmol/L (3.6-5.0)
[2018-12-01] MEDS: PANTOPRAZOLE SODIUM 40 MG TABLET.DR PO SCH (09:32)
[2018-12-01] MEDS: THIAMINE HCL 100 MG TABLET PO SCH ×2 (09:32→22:01)
[2018-12-01] MEDS: ENALAPRIL MALEATE 10 MG TABLET PO SCH (09:32)
[2018-12-01] MEDS: FLUOXETINE HCL 20 MG CAPSULE PO SCH (09:33)
[2018-12-01] MEDS: BACLOFEN 20 MG TABLET PO SCH ×3 (09:33→17:06)
[2018-12-01] MEDS: BENZTROPINE MESYLATE 1 MG TABLET PO SCH ×2 (09:33→22:01)
[2018-12-01] MEDS: PAROXETINE HCL 20 MG TABLET PO SCH (09:33)
[2018-12-01] MEDS: LACTULOSE SYRUP 20 GM/30 ML UDCUP PO SCH ×2 (09:34→17:06)
[2018-12-01] MEDS: ENOXAPARIN SODIUM INJ 40 MG/0.4 ML DISP.SYRIN SUBCUT SCH (09:34)
[2018-12-01] MEDS: NICOTINE 21 MG/24 HR PATCH.TD24 TD SCH (09:34)
[2018-12-01] MEDS: FENOFIBRATE NANOCRYSTALLIZED 145 MG TABLET PO SCH (09:34)
[2018-12-01] MEDS: AMLODIPINE BESYLATE 2.5 MG TABLET PO SCH ×2 (09:34→22:02)
--- NOTE | 2018-12-01 12:26 | PDOC PROGRESS REPORT ---
Subjective Progress Note for:: 12/01/18 Subjective:: Patient seen by the bedside, he complain of constipation otherwise is feeling better, yesterday he was transferred out from ICU to [facility] bed. He was started on intravenous Solu-Medrol for COPD exacerbation, he smokes 2 pack a day of cigarette, was audibly wheezing on auscultation of his chest. Reason For Visit: INADVERTANT OD,ASPIRATION,VENTILATOR Physical Exam Vital Signs: Temp Pulse Resp BP Pulse Ox 98.7 F 82 24 H 138/74 H 91 L 12/01/18 08:32 12/01/18 08:32 12/01/18 08:32 12/01/18 08:32 12/01/18 08:32 Intake & Output 11/30/18 12/01/18 12/02/18 06:59 06:59 06:59 Intake Total 1731 2286 250 Output Total 1800 2075 Balance -69 211 250 Weight 119 kg 105.5 kg General appearance: PRESENT: no acute distress Eye exam: PRESENT: PERRLA Respiratory exam: PRESENT: wheezes Cardiovascular exam: PRESENT: +S1, +S2 GI/Abdominal exam: PRESENT: distended Neurological exam: PRESENT: alert Results Laboratory Results: 11/30/18 06:16 12/01/18 05:14 12/01/18 05:14 Sodium 143.6 Potassium 3.9 Chloride 110 H Carbon Dioxide 25 Anion Gap 9 BUN 13 Creatinine 0.49 L Est GFR ( Amer) > 60 Glucose 181 H Calcium 8.6 Magnesium 2.1 11/24/18 11/24/18 11/25/18 13:00 13:00 12:51 Creatine Kinase 102 88 CK-MB (CK-2) 2.45 Troponin I < 0.012 Impressions: Head CT 11/24/18 15:38 IMPRESSION: NORMAL BRAIN CT WITHOUT CONTRAST. EVIDENCE OF ACUTE STROKE: NO. KUB X-Ray 11/27/18 00:00 IMPRESSION: Colonic distention. Most likely nonobstructive. Chest X-Ray 11/28/18 06:00 IMPRESSION: Interval improvement. No pneumothorax. Assessment & Plan - Diagnosis (1) Acute respiratory failure with hypoxia Is this a current diagnosis for this admission?: Yes Plan: Continue oxygen therapy via nasal cannula (2) Aspiration into respiratory tract Qualifiers: Encounter type: subsequent encounter Qualified Code(s): T17.908D - Unspecified foreign body in respiratory tract, part unspecified causing other injury, subsequent encounter Is this a current diagnosis for this admission?: Yes (3) Poisoning by multiple unspecified drugs, medicaments and biological subst ances, accidental (unintentional), initial encounter Is this a current diagnosis for this admission?: Yes (4) COPD with acute exacerbation Is this a current diagnosis for this admission?: Yes Plan: Continue IV Solu-Medrol, bronchodilators (5) Constipation Qualifiers: Constipation type: unspecified constipation type Qualified Code(s): K59.00 - Constipation, unspecified Is this a current diagnosis for this admission?: Yes Plan: Give molasses enema, obtain KUB - Time Time Spent with patient: 35 or more minutes Level of Care: IMCU Smoking Cessation Education: over 10 minutes Medications reviewed and adjusted accordingly: Yes
[2018-12-01] MEDS: VANCOMYCIN HCL 1,250 MG in DEXTROSE 5%-WATER 250 ML IV SCH ×2 (12:56→17:06)
--- NOTE | 2018-12-01 15:54 | RADIOLOGY REPORT (SQ) ---
EXAM DESCRIPTION: KUB/ABDOMEN (SINGLE VIEW) COMPLETED DATE/TIME: 12/01/2018 2:20 pm REASON FOR STUDY: abdomen extension COMPARISON: None. NUMBER OF VIEWS: One view. TECHNIQUE: Supine radiographic image of the abdomen acquired. LIMITATIONS: None. FINDINGS: BOWEL GAS PATTERN: Gaseous prominence of the colon again noted with gas noted to the rectu m. Scattered small bowel gas. CALCIFICATIONS: No suspicious calcifications. SOFT TISSUES: No gross mass or suggestion of organomegaly. HARDWARE: Previous lumbar fusion L4-S1. Surgical clips right upper quadrant. BONES: No acute fracture. No worrisome bone lesions. OTHER: Radiopaque catheter overlying the bladder. IMPRESSION: Persistent gaseous distention of colon consistent with colon ileus. TECHNICAL DOCUMENTATION: JOB ID: [id number] [employer]- All Rights Reserved Reading location - IP/workstation name: [email or web address]
[2018-12-01] MEDS: TAMSULOSIN HCL 0.4 MG CAP.SR.24H PO SCH (17:06)
[2018-12-01] MEDS: TRAZODONE HCL 50 MG TABLET PO SCH (22:01)
[2018-12-01] MEDS: HALOPERIDOL 5 MG TABLET PO SCH (22:02)
[2018-12-01] MEDS: ATORVASTATIN CALCIUM 20 MG TABLET PO SCH (22:02)
[2018-12-02] MEDS: VANCOMYCIN HCL 1,250 MG in DEXTROSE 5%-WATER 250 ML IV SCH ×4 (00:46→17:19)
[2018-12-02] MEDS: BACLOFEN 20 MG TABLET PO SCH ×5 (00:47→21:38)
[2018-12-02] MEDS: OXYCODONE HCL IR 5 MG TABLET PO PRN ×3 (05:33→19:02)
[2018-12-02] MEDS: BUSPIRONE HCL 10 MG TABLET PO SCH ×3 (05:34→21:37)
[2018-12-02] MEDS: METHYLPREDNISOLONE INJ 125 MG/2 ML SDV IV SCH ×3 (05:34→21:35)
[2018-12-02] MEDS: GABAPENTIN 300 MG CAPSULE PO SCH ×3 (05:34→21:38)
[2018-12-02] MEDS: MEROPENEM 1 GM in NORMAL SALINE 50 ML IV SCH ×3 (05:35→21:35)
[2018-12-02 06:17] LABS: ANION GAP 8 (5-19); BLOOD UREA NITROGEN 15 mg/dL (7-20); CALCIUM 8.9 mg/dL (8.4-10.2); CARBON DIOXIDE 28 mmol/L (22-30); CHLORIDE 106 mmol/L (98-107); GLUCOSE 165 mg/dL (75-110)
[2018-12-02 06:18] LABS: VANCOMYCIN,TROUGH 17.8 ug/mL (5.0-20.0)
[2018-12-02] MEDS: LACTULOSE SYRUP 20 GM/30 ML UDCUP PO SCH ×2 (10:02→17:19)
[2018-12-02] MEDS: THIAMINE HCL 100 MG TABLET PO SCH ×2 (10:02→21:35)
[2018-12-02] MEDS: FLUOXETINE HCL 20 MG CAPSULE PO SCH (10:03)
[2018-12-02] MEDS: ENALAPRIL MALEATE 10 MG TABLET PO SCH (10:03)
[2018-12-02] MEDS: PANTOPRAZOLE SODIUM 40 MG TABLET.DR PO SCH (10:03)
[2018-12-02] MEDS: BENZTROPINE MESYLATE 1 MG TABLET PO SCH ×2 (10:03→21:38)
[2018-12-02] MEDS: NICOTINE 21 MG/24 HR PATCH.TD24 TD SCH (10:04)
[2018-12-02] MEDS: FENOFIBRATE NANOCRYSTALLIZED 145 MG TABLET PO SCH (10:04)
[2018-12-02] MEDS: ENOXAPARIN SODIUM INJ 40 MG/0.4 ML DISP.SYRIN SUBCUT SCH (10:04)
[2018-12-02] MEDS: AMLODIPINE BESYLATE 2.5 MG TABLET PO SCH ×2 (10:04→21:38)
[2018-12-02] MEDS: PAROXETINE HCL 20 MG TABLET PO SCH (10:05)
--- NOTE | 2018-12-02 10:05 | PDOC PROGRESS REPORT ---
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 ABSENT: scleral icterus Ear exam: PRESENT: normal external ear exam Mouth exam: PRESENT: moist, tongue midline Neck exam: PRESENT: full ROM. ABSENT: carotid bruit, JVD, lymphadenopathy, thyromegaly Respiratory exam: PRESENT: clear to auscultation wan Cardiovascular exam: PRESENT: RRR. ABSENT: diastolic murmur, rubs, systolic murmur Pulses: PRESENT: normal dorsalis pedis pul, +2 pedal pulses bilateral Vascular exam: PRESENT: normal capillary refill GI/Abdominal exam: PRESENT: normal bowel sounds, soft. ABSENT: distended, guarding, mass, organolmegaly, rebound, tenderness Rectal exam: PRESENT: deferred Neurological exam: PRESENT: alert, awake, oriented to person, oriented to place, oriented to time, oriented to situation, CN II-XII grossly intact. ABSENT: motor sensory deficit Psychiatric exam: PRESENT: appropriate affect, normal mood. ABSENT: homicidal ideation, suicidal ideation Skin exam: PRESENT: dry, intact, warm. ABSENT: cyanosis, rash Results Laboratory Results: 11/30/18 06:16 12/02/18 05:32 12/02/18 05:32 Sodium 141.8 Potassium 4.0 Chloride 106 Carbon Dioxide 28 Anion Gap 8 BUN 15 Creatinine 0.53 Est GFR ( Amer) > 60 Glucose 165 H Calcium 8.9 Magnesium 2.2 11/24/18 11/24/18 11/25/18 13:00 13:00 12:51 Creatine Kinase 102 88 CK-MB (CK-2) 2.45 Troponin I < 0.012 Impressions: Head CT 11/24/18 15:38 IMPRESSION: NORMAL BRAIN CT WITHOUT CONTRAST. EVIDENCE OF ACUTE STROKE: NO. Chest X-Ray 11/28/18 06:00 IMPRESSION: Interval improvement. No pneumothorax. KUB X-Ray 12/01/18 00:00 IMPRESSION: Persistent gaseous distention of colon consistent with colon ileus. Assessment & Plan - Diagnosis (1) MRSA pneumonia Qualifiers: Lung location: unspecified part of lung Is this a current diagnosis for this admission?: Yes Plan: Continues to IV vancomycin's may be consider switch to the p.o. antibiotic tomorrow we will repeat the chest x-ray (2) Acute respiratory failure with hypoxia Is this a current diagnosis for this admission?: Yes Plan: Currently all resolved status post extubation's (3) COPD with acute exacerbation Is this a current diagnosis for this admission?: Yes Plan: Intensive nebulizer treatments reduce the IV steroids (4) Chronic pain disorder Is this a current diagnosis for this admission?: Yes Plan: Follow with the pain management (5) Hypertension Qualifiers: Hypertension type: unspecified secondary hypertension Qualified Code(s): I15.9 - Secondary hypertension, unspecified; I15 - Secondary hypertension Is this a current diagnosis for this admission?: Yes (6) Anxiety and depression Is this a current diagnosis for this admission?: Yes (7) BPH (benign prostatic hypertrophy) Qualifiers: Lower urinary tract symptom detail: unspecified Is this a current diagnosis for this admission?: Yes Plan: We increased the Flomax twice a day (8) Bipolar disorder Qualifiers: Active/Remission status: currently active Is this a current diagnosis for this admission?: Yes Plan: Will wait for the psych evaluations - Time Time Spent with patient: 25-34 minutes Level of Care: IMCU Smoking Cessation Education: over 10 minutes Medications reviewed and adjusted accordingly: Yes Anticipated discharge: Home with Homehealth Within: Other - Inpatient Certification Based on my medical assessment, after consideration of the patient's comorbidities, presenting symptoms, or acuity I expect that the services needed warrant INPATIENT care.: Yes I certify that my determination is in accordance with my understanding of Medicare's requirements for reasonable and necessary INPATIENT services [42 CFR 412.3e].: Yes - Plan Summary Plan Summary: Reduce the IV steroids Physicall therapy evaluations
--- NOTE | 2018-12-02 16:44 | RADIOLOGY REPORT (SQ) ---
EXAM DESCRIPTION: CHEST 2 VIEWS COMPLETED DATE/TIME: 12/02/2018 4:11 pm REASON FOR STUDY: Pneumonia COMPARISON: AP view of the chest from 11/28/2018 EXAM PARAMETERS: NUMBER OF VIEWS: two views TECHNIQUE: Digital Frontal and Lateral radiographic views of the chest acquired. RADIATION DOSE: NA LIMITATIONS: none FINDINGS: LUNGS AND PLEURA: Improved patchy opacities in the lower lobes. The left lateral costophr enic sulcus is blunted. There is no pneumothorax. MEDIASTINUM AND HILAR STRUCTURES: Stable mediastinal and hilar contours. HEART AND VASCULAR STRUCTURES: The cardiac silhouette is enlarged. The pulmonary vasculature is with in normal limits. BONES: No acute findings. HARDWARE: The endotracheal and enteric tubes are no longer in place. OTHER: No other finding. IMPRESSION: 1. Improved patchy opacities in the lower lobes. 2. Trace left pleural effusion. TECHNICAL DOCUMENTATION: JOB ID: [id number] [employer]- All Rights Reserved Reading location - IP/workstation name: [email or web address]
[2018-12-02] MEDS: TAMSULOSIN HCL 0.4 MG CAP.SR.24H PO SCH ×2 (17:19→21:37)
[2018-12-02] MEDS: TRAZODONE HCL 50 MG TABLET PO SCH (21:36)
[2018-12-02] MEDS: ATORVASTATIN CALCIUM 20 MG TABLET PO SCH (21:37)
[2018-12-02] MEDS: HALOPERIDOL 5 MG TABLET PO SCH (21:37)
[2018-12-03] MEDS: VANCOMYCIN HCL 1,250 MG in DEXTROSE 5%-WATER 250 ML IV SCH ×2 (00:25→06:24)
[2018-12-03] MEDS: MEROPENEM 1 GM in NORMAL SALINE 50 ML IV SCH (05:35)
[2018-12-03] MEDS: METHYLPREDNISOLONE INJ 125 MG/2 ML SDV IV SCH (05:35)
[2018-12-03] MEDS: GABAPENTIN 300 MG CAPSULE PO SCH ×3 (05:36→21:42)
[2018-12-03] MEDS: BUSPIRONE HCL 10 MG TABLET PO SCH ×3 (05:36→21:47)
[2018-12-03] MEDS: OXYCODONE HCL IR 5 MG TABLET PO PRN ×3 (05:45→18:12)
[2018-12-03 06:13] LABS: ABSOLUTE LYMPHOCYTES (AUTO) 0.9 10^3/uL (0.5-4.7); ABSOLUTE MONOCYTES (AUTO) 0.7 10^3/uL (0.1-1.4); ABSOLUTE NEUT (AUTO) 10.4 10^3/uL (1.7-8.2); BASOPHILS % (AUTO) 0.1 % (0-2); HEMATOCRIT 33.7 % (37.9-51.0); HEMOGLOBIN 11.3 g/dL (13.5-17.0); LYMPHOCYTES % (AUTO) 7.4 % (13-45); MEAN CORPUSCULAR HEMOGLOBIN 27.7 pg (27.0-33.4); MEAN CORPUSCULAR HGB CONC 33.4 g/dL (32.0-36.0); MEAN CORPUSCULAR VOLUME 83 fl (80-97); MONOCYTES % (AUTO) 5.9 % (3-13); PLATELET COUNT 290 10^3/uL (150-450); RED BLOOD COUNT 4.07 10^6/uL (4.35-5.55); RED CELL DISTRIBUTION WIDTH 15.7 % (11.5-14.0); SEGMENTED NEUTROPHILS % (AUTO) 86.6 % (42-78); TOTAL CELLS COUNTED % (AUTO) 100 %
[2018-12-03 06:39] LABS: ANION GAP 9 (5-19); BLOOD UREA NITROGEN 15 mg/dL (7-20); CALCIUM 8.6 mg/dL (8.4-10.2); CARBON DIOXIDE 28 mmol/L (22-30); CHLORIDE 107 mmol/L (98-107); GLUCOSE 156 mg/dL (75-110); POTASSIUM 4.1 mmol/L (3.6-5.0)
--- NOTE | 2018-12-03 08:54 | PDOC PROGRESS REPORT ---
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 ABSENT: scleral icterus Ear exam: PRESENT: normal external ear exam Mouth exam: PRESENT: moist, tongue midline Neck exam: PRESENT: full ROM. ABSENT: carotid bruit, JVD, lymphadenopathy, thyromegaly Respiratory exam: PRESENT: clear to auscultation wan Cardiovascular exam: PRESENT: RRR. ABSENT: diastolic murmur, rubs, systolic murmur Pulses: PRESENT: normal dorsalis pedis pul, +2 pedal pulses bilateral Vascular exam: PRESENT: normal capillary refill GI/Abdominal exam: PRESENT: normal bowel sounds, soft. ABSENT: distended, guarding, mass, organolmegaly, rebound, tenderness Rectal exam: PRESENT: deferred Musculoskeletal exam: PRESENT: ambulatory Neurological exam: PRESENT: alert, awake, oriented to person, oriented to place, oriented to time, oriented to situation, CN II-XII grossly intact. ABSENT: motor sensory deficit Psychiatric exam: PRESENT: appropriate affect, normal mood. ABSENT: homicidal ideation, suicidal ideation Skin exam: PRESENT: dry, intact, warm. ABSENT: cyanosis, rash Results Laboratory Results: 12/03/18 05:32 12/03/18 05:32 12/03/18 12/03/18 05:32 05:32 WBC 12.0 H RBC 4.07 L Hgb 11.3 L Hct 33.7 L MCV 83 MCH 27.7 MCHC 33.4 RDW 15.7 H Plt Count 290 Seg Neutrophils % 86.6 H Sodium 143.6 Potassium 4.1 Chloride 107 Carbon Dioxide 28 Anion Gap 9 BUN 15 Creatinine 0.57 Est GFR ( Amer) > 60 Glucose 156 H Calcium 8.6 Magnesium 2.4 H 11/24/18 11/24/18 11/25/18 13:00 13:00 12:51 Creatine Kinase 102 88 CK-MB (CK-2) 2.45 Troponin I < 0.012 Impressions: Head CT 11/24/18 15:38 IMPRESSION: NORMAL BRAIN CT WITHOUT CONTRAST. EVIDENCE OF ACUTE STROKE: NO. KUB X-Ray 12/01/18 00:00 IMPRESSION: Persistent gaseous distention of colon consistent with colon ileus. Chest X-Ray 12/02/18 00:00 IMPRESSION: 1. Improved patchy opacities in the lower lobes. 2. Trace left pleural effusion. Assessment & Plan - Diagnosis (1) MRSA pneumonia Qualifiers: Lung location: unspecified part of lung Is this a current diagnosis for this admission?: Yes Plan: We will discontinues to IV antibiotics switch to the p.o. Bactrim was sensitive to the organisms (2) Acute respiratory failure with hypoxia Is this a current diagnosis for this admission?: Yes Plan: Try to wean off from the oxygen's (3) COPD with acute exacerbation Is this a current diagnosis for this admission?: Yes Plan: dis continues IV Solu-Medrol was put on a p.o. steroids (4) Chronic pain disorder Is this a current diagnosis for this admission?: Yes Plan: Follow with the pain management (5) Hypertension Qualifiers: Hypertension type: unspecified secondary hypertension Qualified Code(s): I15.9 - Secondary hypertension, unspecified; I15 - Secondary hypertension Is this a current diagnosis for this admission?: Yes Plan: Currently stable (6) Anxiety and depression Is this a current diagnosis for this admission?: Yes (7) BPH (benign prostatic hypertrophy) Qualifiers: Lower urinary tract symptom detail: unspecified Is this a current diagnosis for this admission?: Yes Plan: We increased the Flomax twice a day (8) Bipolar disorder Qualifiers: Active/Remission status: currently active Is this a current diagnosis for this admission?: Yes Plan: Follow-up with the psychiatrist - Time Time Spent with patient: 15-24 minutes Level of Care: IMCU Medications reviewed and adjusted accordingly: Yes Anticipated discharge: Home with Homehealth Within: within 24 hours - Plan Summary Plan Summary: Continues to current medications With IV antibiotic DC the IV steroids DC the Grant catheter Is to physical therapy
[2018-12-03] MEDS: BACLOFEN 20 MG TABLET PO SCH ×4 (09:34→21:43)
[2018-12-03] MEDS: BENZTROPINE MESYLATE 1 MG TABLET PO SCH ×2 (09:35→21:46)
[2018-12-03] MEDS: LACTULOSE SYRUP 20 GM/30 ML UDCUP PO SCH ×2 (09:35→17:56)
[2018-12-03] MEDS: PREDNISONE 20 MG TABLET PO SCH ×2 (09:37→17:54)
[2018-12-03] MEDS: ENOXAPARIN SODIUM INJ 40 MG/0.4 ML DISP.SYRIN SUBCUT SCH (09:38)
[2018-12-03] MEDS: NICOTINE 21 MG/24 HR PATCH.TD24 TD SCH (09:39)
[2018-12-03] MEDS: AMLODIPINE BESYLATE 2.5 MG TABLET PO SCH ×2 (09:39→21:48)
[2018-12-03] MEDS: PANTOPRAZOLE SODIUM 40 MG TABLET.DR PO SCH (09:40)
[2018-12-03] MEDS: PAROXETINE HCL 20 MG TABLET PO SCH (09:40)
[2018-12-03] MEDS: SULFAMETHOXAZOLE/TRIMETHOPRIM 800-160 MG TABLET PO SCH ×2 (09:41→21:45)
[2018-12-03] MEDS: THIAMINE HCL 100 MG TABLET PO SCH ×2 (09:41→21:43)
[2018-12-03] MEDS: ENALAPRIL MALEATE 10 MG TABLET PO SCH (09:42)
[2018-12-03] MEDS: TAMSULOSIN HCL 0.4 MG CAP.SR.24H PO SCH ×2 (09:43→21:48)
[2018-12-03] MEDS: FLUOXETINE HCL 20 MG CAPSULE PO SCH (09:54)
[2018-12-03] MEDS: HALOPERIDOL 5 MG TABLET PO SCH (21:42)
[2018-12-03] MEDS: ATORVASTATIN CALCIUM 20 MG TABLET PO SCH (21:45)
[2018-12-03] MEDS: TRAZODONE HCL 50 MG TABLET PO SCH (21:48)
[2018-12-04] MEDS: OXYCODONE HCL IR 5 MG TABLET PO PRN ×3 (04:47→20:15)
[2018-12-04 05:29] LABS: ABSOLUTE LYMPHOCYTES (AUTO) 1.4 10^3/uL (0.5-4.7); ABSOLUTE MONOCYTES (AUTO) 0.8 10^3/uL (0.1-1.4); ABSOLUTE NEUT (AUTO) 11.5 10^3/uL (1.7-8.2); BASOPHILS % (AUTO) 0.3 % (0-2); EOSINOPHILS % (AUTO) 0.1 % (0-6); HEMATOCRIT 35.6 % (37.9-51.0); HEMOGLOBIN 11.9 g/dL (13.5-17.0); LYMPHOCYTES % (AUTO) 10.5 % (13-45); MEAN CORPUSCULAR HEMOGLOBIN 27.8 pg (27.0-33.4); MEAN CORPUSCULAR HGB CONC 33.4 g/dL (32.0-36.0); MEAN CORPUSCULAR VOLUME 83 fl (80-97); MONOCYTES % (AUTO) 5.6 % (3-13); PLATELET COUNT 317 10^3/uL (150-450); RED BLOOD COUNT 4.27 10^6/uL (4.35-5.55); RED CELL DISTRIBUTION WIDTH 15.5 % (11.5-14.0); SEGMENTED NEUTROPHILS % (AUTO) 83.5 % (42-78); TOTAL CELLS COUNTED % (AUTO) 100 %; WHITE BLOOD COUNT 13.8 10^3/uL (4.0-10.5)
[2018-12-04 05:47] LABS: ANION GAP 7 (5-19); BLOOD UREA NITROGEN 15 mg/dL (7-20); CALCIUM 8.6 mg/dL (8.4-10.2); CARBON DIOXIDE 28 mmol/L (22-30); CHLORIDE 109 mmol/L (98-107); GLUCOSE 152 mg/dL (75-110); POTASSIUM 4.1 mmol/L (3.6-5.0)
[2018-12-04] MEDS: GABAPENTIN 300 MG CAPSULE PO SCH ×3 (06:44→21:43)
[2018-12-04] MEDS: BUSPIRONE HCL 10 MG TABLET PO SCH ×3 (06:45→21:38)
[2018-12-04] MEDS: LACTULOSE SYRUP 20 GM/30 ML UDCUP PO SCH ×2 (09:28→17:24)
[2018-12-04] MEDS: BACLOFEN 20 MG TABLET PO SCH ×4 (09:37→21:51)
[2018-12-04] MEDS: BENZTROPINE MESYLATE 1 MG TABLET PO SCH ×2 (09:38→21:39)
[2018-12-04] MEDS: TAMSULOSIN HCL 0.4 MG CAP.SR.24H PO SCH ×2 (09:39→21:44)
[2018-12-04] MEDS: ENOXAPARIN SODIUM INJ 40 MG/0.4 ML DISP.SYRIN SUBCUT SCH (09:39)
[2018-12-04] MEDS: PREDNISONE 20 MG TABLET PO SCH ×2 (09:39→18:07)
[2018-12-04] MEDS: NICOTINE 21 MG/24 HR PATCH.TD24 TD SCH (09:40)
[2018-12-04] MEDS: AMLODIPINE BESYLATE 2.5 MG TABLET PO SCH ×2 (09:41→21:44)
[2018-12-04] MEDS: PAROXETINE HCL 20 MG TABLET PO SCH (09:42)
[2018-12-04] MEDS: PANTOPRAZOLE SODIUM 40 MG TABLET.DR PO SCH (09:43)
[2018-12-04] MEDS: FLUOXETINE HCL 20 MG CAPSULE PO SCH (09:44)
[2018-12-04] MEDS: SULFAMETHOXAZOLE/TRIMETHOPRIM 800-160 MG TABLET PO SCH ×2 (09:45→21:43)
[2018-12-04] MEDS: THIAMINE HCL 100 MG TABLET PO SCH ×2 (09:45→21:40)
[2018-12-04] MEDS: ENALAPRIL MALEATE 10 MG TABLET PO SCH (09:47)
--- NOTE | 2018-12-04 10:12 | PDOC PROGRESS REPORT ---
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 ABSENT: scleral icterus Ear exam: PRESENT: normal external ear exam Mouth exam: PRESENT: moist, tongue midline Neck exam: PRESENT: full ROM. ABSENT: carotid bruit, JVD, lymphadenopathy, thyromegaly Respiratory exam: PRESENT: clear to auscultation wan Cardiovascular exam: PRESENT: RRR. ABSENT: diastolic murmur, rubs, systolic murmur Pulses: PRESENT: normal dorsalis pedis pul, +2 pedal pulses bilateral Vascular exam: PRESENT: normal capillary refill GI/Abdominal exam: PRESENT: normal bowel sounds, soft. ABSENT: distended, guarding, mass, organolmegaly, rebound, tenderness Rectal exam: PRESENT: deferred Neurological exam: PRESENT: alert, awake, oriented to person, oriented to place, oriented to time, oriented to situation, CN II-XII grossly intact. ABSENT: motor sensory deficit Psychiatric exam: PRESENT: appropriate affect, normal mood. ABSENT: homicidal ideation, suicidal ideation Skin exam: PRESENT: dry, intact, warm. ABSENT: cyanosis, rash Results Laboratory Results: 12/04/18 05:05 12/04/18 05:05 12/04/18 12/04/18 05:05 05:05 WBC 13.8 H RBC 4.27 L Hgb 11.9 L Hct 35.6 L MCV 83 MCH 27.8 MCHC 33.4 RDW 15.5 H Plt Count 317 Seg Neutrophils % 83.5 H Sodium 143.8 Potassium 4.1 Chloride 109 H Carbon Dioxide 28 Anion Gap 7 BUN 15 Creatinine 0.59 Est GFR ( Amer) > 60 Glucose 152 H Calcium 8.6 Magnesium 2.3 11/24/18 11/24/18 11/25/18 13:00 13:00 12:51 Creatine Kinase 102 88 CK-MB (CK-2) 2.45 Troponin I < 0.012 Impressions: Head CT 11/24/18 15:38 IMPRESSION: NORMAL BRAIN CT WITHOUT CONTRAST. EVIDENCE OF ACUTE STROKE: NO. KUB X-Ray 12/01/18 00:00 IMPRESSION: Persistent gaseous distention of colon consistent with colon ileus. Chest X-Ray 12/02/18 00:00 IMPRESSION: 1. Improved patchy opacities in the lower lobes. 2. Trace left pleural effusion. Assessment & Plan - Diagnosis (1) MRSA pneumonia Qualifiers: Lung location: unspecified part of lung Is this a current diagnosis for this admission?: Yes Plan: Continues to p.o. Bactrim (2) Acute respiratory failure with hypoxia Is this a current diagnosis for this admission?: Yes Plan: Currently all stable still requiring oxygen's we will get the ABG and consult the Dr. Lebron's for further evaluations (3) COPD with acute exacerbation Is this a current diagnosis for this admission?: Yes Plan: Continues to p.o. steroid (4) Chronic pain disorder Is this a current diagnosis for this admission?: Yes Plan: Follow with the pain management (5) Hypertension Qualifiers: Hypertension type: unspecified secondary hypertension Qualified Code(s): I15.9 - Secondary hypertension, unspecified; I15 - Secondary hypertension Is this a current diagnosis for this admission?: Yes Plan: Currently stable (6) Anxiety and depression Is this a current diagnosis for this admission?: Yes (7) BPH (benign prostatic hypertrophy) Qualifiers: Lower urinary tract symptom detail: unspecified Is this a current diagnosis for this admission?: Yes Plan: We increased the Flomax twice a day (8) Bipolar disorder Qualifiers: Active/Remission status: currently active Is this a current diagnosis for this admission?: Yes Plan: Follow-up with the psychiatrist - Time Time Spent with patient: 15-24 minutes Level of Care: IMCU Smoking Cessation Education: over 10 minutes Medications reviewed and adjusted accordingly: Yes Anticipated discharge: Home with Homehealth Within: Other - Plan Summary Plan Summary: Continues to try to wean off from the oxygen's
--- NOTE | 2018-12-04 11:05 | PDOC CONSULTATION ---
Consultation Consult Date: 12/04/18 Attending physician:: KAY BRUSH Provider Consulted: MADDIE WALTON Consult reason:: COPD/aspiration History of Present Illness Admission Date/PCP: 11/24/18 16:24 KAY BRUSH MD History of Present Illness: DONALD GARRIDO is a 43 year old male, status post intubation in the ICU after aspirating an alleged overdose of his medicines he denies shortness of breath at rest but admits to some dyspnea on exertion he has a cough that is occasionally productive of green phlegm he denies hemoptysis his PPD was negative dates unknown he has no history of chronic lung disease as a child or adolescent. He admits to exposure large amounts of passive smoke as a child as well as an adult. He himself smoked 2 packs a day for 30 years and to be and denies any occupational exposure to potential respiratory toxins no pets no recent travel he denies angina-like chest pain sleeps on for 5 pillows no nocturnal cough or PND he denies edema he admits to snoring, restless sleep, unrestful sleep, and excessive daytime somnolence. Past Medical History Cardiac Medical History: Reports: Hyperlipidema, Hypertension Denies: Coronary Artery Disease, Myocardial Infarction Pulmonary Medical History: Reports: Chronic Obstructive Pulmonary Disease (COPD) - not on home o2 Denies: Asthma, Bronchitis, Pneumonia Neurological Medical History: Denies: Seizures GI Medical History: Reports: Gastroesophageal Reflux Disease Musculoskeltal Medical History: Denies: Arthritis Psychiatric Medical History: Reports: Bipolar Disorder, Depression Hematology: Denies: Anemia Infectious Medical History: Reports: Methicillin-Resistant Staph Aureus Past Surgical History Past Surgical History: Reports: Cholecystectomy, Orthopedic Surgery - 9 back surgeries, with lower abdominal midline incision. Social History Information Source: Patient, [facility] Records Smoking Status: Current Every Day Smoker Cigarettes Packs Per Day: 2 Number of Years Smokin Passive smoke exposure as: Both Frequency of Alcohol Use: Heavy Hx Recreational Drug Use: Yes Drugs: Marijuana Hx Prescription Drug Abuse: Yes Do you have pets?: No Have you had any respiratory illnesses as a child?: No Have you been exposed to any sick contacts recently?: No Have you had any recent respiratory illnesses?: No Have you travelled outside of [place] in the past 12 months?: No - Advance Directive Resuscitation Status: Full Code Family History Family History: CAD, COPD, Hypertension Parental Family History Reviewed: Yes Children Family History Reviewed: Yes Sibling(s) Family History Reviewed.: Yes Medication/Allergy Home Medications: Baclofen [Baclofen 20 Mg Tablet] 20 mg PO QIDP PRN 11/25/18 Enalapril Maleate [Vasotec 10 mg Tablet] 10 mg PO DAILY 11/25/18 Hydroxyzine Pamoate [Vistaril 25 mg Capsule] 25 mg PO Q8HP PRN 11/25/18 Ondansetron HCl [Zofran 4 mg Tablet] 4 mg PO Q8HP PRN 11/25/18 Trazodone HCl [Desyrel] 100 mg PO QHS 11/25/18 Amlodipine Besylate [Norvasc 2.5 mg Tablet] 2.5 mg PO Q12 11/30/18 Atorvastatin Calcium [Lipitor 20 mg Tablet] 20 mg PO QHS 11/30/18 Benztropine Mesylate [Benztropine Mesylate 2 mg Tablet] 2 mg PO Q12 11/30/18 Buspirone HCl 15 mg PO Q8 11/30/18 Esomeprazole Magnesium 40 mg PO Q6AM 11/30/18 Fenofibrate Nanocrystallized [Tricor 145 mg Tablet] 145 mg PO DAILY 11/30/18 Fluoxetine HCl 80 mg PO DAILY 11/30/18 Gabapentin [Neurontin 300 mg Capsule] 300 mg PO Q8 11/30/18 Haloperidol 10 mg PO QPM 11/30/18 Oxycodone HCl 15 mg PO Q6HP PRN 11/30/18 Tamsulosin HCl [Flomax 0.4 mg Cap.sr] 0.4 mg PO QPM 11/30/18 Allergies/Adverse Reactions: iodine [Iodine] Allergy (Intermediate, Verified 11/24/18 14:10) Blisters Shellfish * [Shellfish] Allergy (Intermediate, Verified 11/24/18 14:10) Blisters clonazepam [From Klonopin] Allergy (Verified 11/24/18 14:10) Blisters Review of Systems All systems: reviewed and no additional remarkable complaints except as stated Physical Exam Vital Signs: Temp Pulse Resp BP Pulse Ox 97.4 F 62 18 134/77 H 91 L 12/04/18 08:26 12/04/18 09:47 12/04/18 08:26 12/04/18 09:47 12/04/18 08:26 Intake & Output 12/03/18 12/04/18 12/05/18 06:59 06:59 06:59 Intake Total 1748 1570 Output Total 3418 2148 Balance -945 -2951 Weight 117.7 kg 117.3 kg General appearance: PRESENT: no acute distress, cooperative, disheveled, morbidly obese Head exam: PRESENT: atraumatic, normocephalic Eye exam: PRESENT: conjunctiva pale, EOMI. ABSENT: nystagmus, periorbital swelling Mouth exam: PRESENT: dry mucosa, neck supple, tongue midline Neck exam: ABSENT: carotid bruit, JVD, lymphadenopathy, thyromegaly, tracheal deviation, tracheostomy Respiratory exam: PRESENT: decreased breath sounds, prolonged expiratory phas, rales, rhonchi, symmetrical, unlabored, wheezes. ABSENT: retraction, stridor, tachypnea Cardiovascular exam: PRESENT: RRR, +S1, +S2. ABSENT: tachycardia Pulses: PRESENT: normal radial pulses GI/Abdominal exam: PRESENT: soft. ABSENT: distended, guarding, mass, rebound, tenderness Extremities exam: ABSENT: calf tenderness, clubbing, joint swelling Musculoskeletal exam: ABSENT: deformity, dislocation Neurological exam: PRESENT: alert, awake Psychiatric exam: PRESENT: appropriate affect Skin exam: PRESENT: dry, warm Results Laboratory Results: 12/04/18 05:05 12/04/18 05:05 12/04/18 12/04/18 05:05 05:05 WBC 13.8 H RBC 4.27 L Hgb 11.9 L Hct 35.6 L MCV 83 MCH 27.8 MCHC 33.4 RDW 15.5 H Plt Count 317 Seg Neutrophils % 83.5 H Sodium 143.8 Potassium 4.1 Chloride 109 H Carbon Dioxide 28 Anion Gap 7 BUN 15 Creatinine 0.59 Est GFR ( Amer) > 60 Glucose 152 H Calcium 8.6 Magnesium 2.3 11/24/18 11/24/18 11/25/18 13:00 13:00 12:51 Creatine Kinase 102 88 CK-MB (CK-2) 2.45 Troponin I < 0.012 Impressions: Head CT 11/24/18 15:38 IMPRESSION: NORMAL BRAIN CT WITHOUT CONTRAST. EVIDENCE OF ACUTE STROKE: NO. KUB X-Ray 12/01/18 00:00 IMPRESSION: Persistent gaseous distention of colon consistent with colon ileus. Chest X-Ray 12/02/18 00:00 IMPRESSION: 1. Improved patchy opacities in the lower lobes. 2. Trace left pleural effusion. Assessment & Plan - Diagnosis (1) Acute respiratory failure with hypoxia Is this a current diagnosis for this admission?: Yes Plan: Status post extubation returned from the ICU requiring high FiO2 with suggest Xopenex [id number] and as well as some Spiriva bedside spirometry (2) Aspiration into respiratory tract Qualifiers: Encounter type: initial encounter Qualified Code(s): T17.908A - Unspecified foreign body in respiratory tract, part unspecified causing other injury, initial encounter Is this a current diagnosis for this admission?: Yes Plan: Modified barium swallow and esophagram (3) Obesity (BMI 30.0-34.9) Is this a current diagnosis for this admission?: Yes Plan: Consider nutritional consult - Time Time Spent: 50 to 70 Minutes
[2018-12-04] MEDS ORDERED: LEVALBUTEROL HCL NEB 1.25 MG/3 ML AMPUL NEB ONE (12:00)
[2018-12-04] MEDS: LEVALBUTEROL HCL NEB 1.25 MG/3 ML AMPUL NEB SCH ×3 (12:02→20:47)
[2018-12-04 14:01] LABS: ARTERIAL BLOOD BASE EXCESS 2.2 mmol/L; ARTERIAL BLOOD H2CO3 0.91 mmol/L (1.05-1.35); ARTERIAL BLOOD HCO3 24.2 mmol/L (20-24); ARTERIAL BLOOD O2 SATURATION 88.9 % (94-98); ARTERIAL BLOOD PCO2 30.3 mmHg (35-45); ARTERIAL BLOOD PH 7.52 (7.35-7.45); ARTERIAL BLOOD PO2 48.8 mmHg (80-100); ARTERIAL BLOOD TOTAL CO2 25.2 mmol/L (23-27)
[2018-12-04 14:02] LABS: ARTERIAL BLOOD FIO2 3L
--- NOTE | 2018-12-04 15:19 | ST Inp Modified Barium Swallow ---
Medical Diagnosis - Medical Diagnoses Medical Diagnosis Description & ICD-10 Code(s): MRSA pneumonia, acute respiratory failure with hypoxia - ICD-10 Tx Diagnosis Coding (1) Aspiration into airway ICD-10 Code(s): T17.908A - UNSP FB IN RESP TRACT, PART UNSP CAUSING OTH INJURY, INIT ST Inpatient MBS - General Date: 12/04/18 Date of Onset: 11/24/18 - date of aspiration - History -: Medical - per EMR :patient admitted 11/24 due to unintentional OD, aspiration on vomit. Patient subsequently intubated, and extubated on 11/28. Chart reflects that he is on a regular diet, however, the patient states that he needs soft foods due to dentition. Medications: Medications Reviewed Allergies: Refer to medical record - Subjective Current Nutritional Means: PO Current PO Diet: Regular Current Symptoms: Pneumonia Pain: Patient reports, 0/5 - Objective Assessment: Upright, Left Lateral - Food Trials Food Trials Used: Thin liquids, Pureed, Regular The Patient: Was Able to Self Feed - Assessment Labial Function: Within Normal Limits Lingual Function: Within Normal Limits Mandibular Function: Within Normal Limits Velo-Pharyngeal Function: Unremarkable Laryngeal Function: clear voicing - Pharyngeal Stage Initiation of Pharyngeal Stage: Normal Decreased Laryngeal Elevation: No Reduced Velo-Pharyngeal Closure: no Reduced Pressure Generation: No Reduced Tongue Base Retraction: No Pre-Swallowing Pooling in Valleculae: Mild Pre-Swallowing Pooling in Pyriforms: None Reduced Thyro-Hyiod Approximation: No Reduced Epiglottic Excursion: No Reduced Pharyngeal Peristalsis: No Post Swallow Residuals in Valleculae: Mild Post Swallow Residuals in Pyriforms: None Pahryngeal Stage Comments: No overt deficits in pharyngeal phase of swallow. - Impression/Summary Laryngeal Penetration: Yes, Flash - with large cup sip of water x1 Tracheal Aspiration: no Patient Presents With: Normal swallow at eval Risk of Aspiration: Minimal - Recommendations Solid Diet Recommendations: Mechanical Soft - due to dentition Liquid Diet Recommendations: Thin Dysphagia Therapy with [employer] OPERATOR: No Recommended Techniques: Fully Upright During Meal, Small Bites and Sips - Time Total Time: 20 Total Timed Minutes: 20
[2018-12-04] MEDS: UMECLIDINIUM BROMIDE 62.5 MCG/DOSE IH SCH (15:46)
--- NOTE | 2018-12-04 15:48 | RADIOLOGY REPORT (SQ) ---
EXAM DESCRIPTION: ZOILA SWALLOW COMPLETED DATE/TIME: 12/04/2018 3:21 pm REASON FOR STUDY: aspiration pneumonia dysphagia and chest pain COMPARISON: None. TECHNIQUE: Videofluoroscopic swallowing examination was performed in conjunction with speech patholo gy. Videofluoroscopic imaging was obtained and reviewed and these are the findings: RADIATION DOSE: 2 minutes 45 seconds of fluoroscopy was used. 1 images saved to PACS. LIMITATIONS: None FINDINGS: The patient was brought into the fluoro room and placed upright on a modified barium swall ow chair. The patient was then given multiple consistencies mixed with barium to swallow under live fluoroscopic video guidance. According to the Speech Pathologist there was trace laryngeal penetrati on with thin liquids. No aspiration. IMPRESSION: TRACE LARYNGEAL PENETRATION WITH THIN LIQUIDS. NO ASPIRATION. PLEASE SEE SPEECH PATHOLO GIST REPORT FOR OTHER FINDINGS AND RECOMMENDATIONS. COMMENT: Quality ID [id number]: Final reports for procedures using fluoroscopy that document radiation exp osure indices, or exposure time and number of fluorographic images (if radiation exposure indices are not available) TECHNICAL DOCUMENTATION: JOB ID: [id number] [employer]- All Rights Reserved Reading location - IP/workstation name: [email or web address]
--- NOTE | 2018-12-04 15:53 | RADIOLOGY REPORT (SQ) ---
EXAM DESCRIPTION: BARIUM SWALLOW ESOPHAGUS COMPLETED DATE/TIME: 12/04/2018 3:22 pm REASON FOR STUDY: swallow discomfort/ HIATAL HERNIA COMPARISON: None. TECHNIQUE: Under fluoroscopic guidance, patient ingested effervescent granules followed by thick and thin barium. Fluoroscopic spot images and routine radiographic images acquired and stored on PACS. 12 MM BARIUM TABLET GIVEN: Yes. No significant delay in passage. LIMITATIONS: None. FLUOROSCOPY TIME: FLUORO TIME: 2.2 MINUTES OF FLUOROSCOPY WAS USED. 8 images saved to PACS. FINDINGS: NEUROMUSCULAR COORDINATION OF SWALLOW: Normal. No aspiration. ESOPHAGEAL MOTILITY: Slow primary peristalsis with tertiary contractions in the distal esophagus. ESOPHAGEAL MUCOSA: No masses or ulcerations are seen. Slight narrowing of the mid esophagus that anderson s not cause delay in passage of the tablet. Delayed opening of the lower esophageal sphincter causin g air-fluid level within the esophagus. GASTRO-ESOPHAGEAL JUNCTION: Small sliding hiatal hernia with mild gastroesophageal reflux. 12 mm bar ium tablet passed through the GE junction without delay. NON-GI TRACT STRUCTURES: No significant finding. OTHER: No other significant finding. IMPRESSION: 1. SMALL SLIDING HIATAL HERNIA WITH MILD GASTROESOPHAGEAL REFLUX. 2. ESOPHAGEAL DYSMOTILITY WITH SLOW OPENING OF THE LOWER ESOPHAGEAL SPHINCTER CAUSING AIR-FLUID LEVE L WITHIN THE ESOPHAGUS. ESOPHAGEAL ACHALASIA SHOULD BE CONSIDERED. RECOMMENDATION: Upper endoscopy. COMMENT: Quality ID [id number]: Final reports for procedures using fluoroscopy that document radiation exp osure indices, or exposure time and number of fluorographic images (if radiation exposure indices are not available) TECHNICAL DOCUMENTATION: JOB ID: [id number] [employer]- All Rights Reserved Reading location - IP/workstation name: [email or web address] [id number]
--- NOTE | 2018-12-04 16:33 | Progress Note ---
Provider Note Provider Note: called by Dr Steward will schedule EGD for patient on 12/05 full note to be dictated
[2018-12-04] MEDS: HALOPERIDOL 5 MG TABLET PO SCH (21:39)
[2018-12-04] MEDS: TRAZODONE HCL 50 MG TABLET PO SCH (21:40)
[2018-12-04] MEDS: ATORVASTATIN CALCIUM 20 MG TABLET PO SCH (21:43)
[2018-12-05] MEDS: LEVALBUTEROL HCL NEB 1.25 MG/3 ML AMPUL NEB SCH ×4 (02:34→20:39)
[2018-12-05 06:08] LABS: ABSOLUTE LYMPHOCYTES (AUTO) 1.3 10^3/uL (0.5-4.7); ABSOLUTE MONOCYTES (AUTO) 0.7 10^3/uL (0.1-1.4); ABSOLUTE NEUT (AUTO) 11.7 10^3/uL (1.7-8.2); BASOPHILS % (AUTO) 0.3 % (0-2); HEMATOCRIT 34.5 % (37.9-51.0); HEMOGLOBIN 11.8 g/dL (13.5-17.0); LYMPHOCYTES % (AUTO) 9.7 % (13-45); MEAN CORPUSCULAR HGB CONC 34.1 g/dL (32.0-36.0); MEAN CORPUSCULAR VOLUME 82 fl (80-97); MONOCYTES % (AUTO) 5.3 % (3-13); PLATELET COUNT 336 10^3/uL (150-450); RED CELL DISTRIBUTION WIDTH 15.4 % (11.5-14.0); SEGMENTED NEUTROPHILS % (AUTO) 84.7 % (42-78); TOTAL CELLS COUNTED % (AUTO) 100 %; WHITE BLOOD COUNT 13.8 10^3/uL (4.0-10.5)
[2018-12-05 06:36] LABS: ANION GAP 8 (5-19); BLOOD UREA NITROGEN 10 mg/dL (7-20); CALCIUM 8.8 mg/dL (8.4-10.2); CARBON DIOXIDE 28 mmol/L (22-30); CHLORIDE 108 mmol/L (98-107); GLUCOSE 129 mg/dL (75-110)
[2018-12-05] MEDS: GABAPENTIN 300 MG CAPSULE PO SCH ×3 (06:53→22:57)
[2018-12-05] MEDS: BUSPIRONE HCL 10 MG TABLET PO SCH ×3 (06:53→23:00)
[2018-12-05] MEDS: OXYCODONE HCL IR 5 MG TABLET PO PRN ×3 (06:54→23:03)
--- NOTE | 2018-12-05 08:55 | PDOC PROGRESS REPORT ---
Subjective Progress Note for:: 12/05/18 Subjective:: Patient is currently doing well he is scheduled for the endoscopy today due to the questionable achalasia Patient was seen by Dr. 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 ABSENT: scleral icterus Ear exam: PRESENT: normal external ear exam Mouth exam: PRESENT: moist, tongue midline Neck exam: PRESENT: full ROM. ABSENT: carotid bruit, JVD, lymphadenopathy, thyromegaly Respiratory exam: PRESENT: clear to auscultation wan Cardiovascular exam: PRESENT: RRR. ABSENT: diastolic murmur, rubs, systolic murmur Pulses: PRESENT: normal dorsalis pedis pul, +2 pedal pulses bilateral Vascular exam: PRESENT: normal capillary refill GI/Abdominal exam: PRESENT: normal bowel sounds, soft. ABSENT: distended, guarding, mass, organolmegaly, rebound, tenderness Rectal exam: PRESENT: deferred Musculoskeletal exam: PRESENT: ambulatory Neurological exam: PRESENT: alert, awake, oriented to person, oriented to place, oriented to time, oriented to situation, CN II-XII grossly intact. ABSENT: mot or sensory deficit Psychiatric exam: PRESENT: appropriate affect, normal mood. ABSENT: homicidal ideation, suicidal ideation Skin exam: PRESENT: dry, intact, warm. ABSENT: cyanosis, rash Results Laboratory Results: 12/05/18 05:47 12/05/18 05:47 12/04/18 12/05/18 12/05/18 13:35 05:47 05:47 WBC 13.8 H RBC 4.20 L Hgb 11.8 L Hct 34.5 L MCV 82 MCH 28.0 MCHC 34.1 RDW 15.4 H Plt Count 336 Seg Neutrophils % 84.7 H Carbonic Acid 0.91 L HCO3/H2CO3 Ratio 26:1 ABG pH 7.52 H ABG pCO2 30.3 L ABG pO2 48.8 L ABG HCO3 24.2 H ABG O2 Saturation 88.9 L ABG Base Excess 2.2 FiO2 3L Sodium 143.8 Potassium 4.0 Chloride 108 H Carbon Dioxide 28 Anion Gap 8 BUN 10 Creatinine 0.57 Est GFR ( Amer) > 60 Glucose 129 H Calcium 8.8 Magnesium 2.3 11/24/18 11/24/18 11/25/18 13:00 13:00 12:51 Creatine Kinase 102 88 CK-MB (CK-2) 2.45 Troponin I < 0.012 Impressions: Head CT 11/24/18 15:38 IMPRESSION: NORMAL BRAIN CT WITHOUT CONTRAST. EVIDENCE OF ACUTE STROKE: NO. KUB X-Ray 12/01/18 00:00 IMPRESSION: Persistent gaseous distention of colon consistent with colon ileus. Chest X-Ray 12/02/18 00:00 IMPRESSION: 1. Improved patchy opacities in the lower lobes. 2. Trace left pleural effusion. Modified Barium Swallow 12/04/18 11:02 IMPRESSION: TRACE LARYNGEAL PENETRATION WITH THIN LIQUIDS. NO ASPIRATION. PLEASE SEE SPEECH PATHOLOGIST REPORT FOR OTHER FINDINGS AND RECOMMENDATIONS. Esophagus X-Ray 12/04/18 11:16 IMPRESSION: 1. SMALL SLIDING HIATAL HERNIA WITH MILD GASTROESOPHAGEAL REFLUX. 2. ESOPHAGEAL DYSMOTILITY WITH SLOW OPENING OF THE LOWER ESOPHAGEAL SPHINCTER CAUSING AIR-FLUID LEVEL WITHIN THE ESOPHAGUS. ESOPHAGEAL ACHALASIA SHOULD BE CONSIDERED. Assessment & Plan - Diagnosis (1) MRSA pneumonia Qualifiers: Lung location: unspecified part of lung Is this a current diagnosis for this admission?: Yes Plan: Continues to p.o. Bactrim (2) Acute respiratory failure with hypoxia Is this a current diagnosis for this admission?: Yes Plan: Currently all stable follow with the Dr. Lebron (3) COPD with acute exacerbation Is this a current diagnosis for this admission?: Yes Plan: Reduce the prednisone 20 mg p.o. daily (4) Chronic pain disorder Is this a current diagnosis for this admission?: Yes Plan: Follow with the pain management (5) Hypertension Qualifiers: Hypertension type: unspecified secondary hypertension Qualified Code(s): I15.9 - Secondary hypertension, unspecified; I15 - Secondary hypertension Is this a current diagnosis for this admission?: Yes Plan: Currently stable (6) Anxiety and depression Is this a current diagnosis for this admission?: Yes (7) BPH (benign prostatic hypertrophy) Qualifiers: Lower urinary tract symptom detail: unspecified Is this a current diagnosis for this admission?: Yes Plan: We increased the Flomax twice a day (8) Bipolar disorder Qualifiers: Active/Remission status: currently active Is this a current diagnosis for this admission?: Yes Plan: Follow-up with the psychiatrist - Time Time Spent with patient: 25-34 minutes Level of Care: IMCU Medications reviewed and adjusted accordingly: Yes Anticipated discharge: Home with Homehealth Within: Other - Plan Summary Plan Summary: Continues to current medications Scheduled for endoscopy
[2018-12-05] MEDS: PREDNISONE 20 MG TABLET PO SCH ×2 (09:47→17:20)
[2018-12-05] MEDS: ENOXAPARIN SODIUM INJ 40 MG/0.4 ML DISP.SYRIN SUBCUT SCH (09:47)
[2018-12-05] MEDS: TAMSULOSIN HCL 0.4 MG CAP.SR.24H PO SCH ×2 (09:47→22:57)
[2018-12-05] MEDS: BENZTROPINE MESYLATE 1 MG TABLET PO SCH ×2 (09:47→23:00)
[2018-12-05] MEDS: BACLOFEN 20 MG TABLET PO SCH ×4 (09:47→22:58)
[2018-12-05] MEDS: LACTULOSE SYRUP 20 GM/30 ML UDCUP PO SCH ×2 (09:47→17:21)
[2018-12-05] MEDS: PANTOPRAZOLE SODIUM 40 MG TABLET.DR PO SCH (09:48)
[2018-12-05] MEDS: ENALAPRIL MALEATE 10 MG TABLET PO SCH (09:48)
[2018-12-05] MEDS: THIAMINE HCL 100 MG TABLET PO SCH ×2 (09:48→22:56)
[2018-12-05] MEDS: PAROXETINE HCL 20 MG TABLET PO SCH (09:48)
[2018-12-05] MEDS: SULFAMETHOXAZOLE/TRIMETHOPRIM 800-160 MG TABLET PO SCH ×2 (09:48→22:57)
[2018-12-05] MEDS: AMLODIPINE BESYLATE 2.5 MG TABLET PO SCH ×2 (09:48→22:58)
[2018-12-05] MEDS: FLUOXETINE HCL 20 MG CAPSULE PO SCH (09:48)
[2018-12-05] MEDS: NICOTINE 21 MG/24 HR PATCH.TD24 TD SCH (09:53)
[2018-12-05] MEDS: UMECLIDINIUM BROMIDE 62.5 MCG/DOSE IH SCH (09:54)
--- NOTE | 2018-12-05 11:11 | Pulmonary Function Test ---
Pulmonary Function Test Date of Procedure:: 12/05/18 INDICATION:: Dyspnea Referring Provider: Dr. 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 Restrictive defect is strongly implied but cannot be diagnosed on the basis of spirometry alone. If clinically indicated complete pulmonary function test would be warranted
[2018-12-05] MEDS ORDERED: MIDAZOLAM 2 MG/2 ML INJ ONE (12:49)
[2018-12-05] MEDS ORDERED: PROPOFOL INJ 200 MG/20 ML VIAL IV ONE (12:49)
--- NOTE | 2018-12-05 13:37 | PDOC CONSULTATION ---
Consultation Consult Date: 12/04/18 Provider Consulted: VINOD HERRERA Consult reason:: abnormal x ray , ? possible air fluid level. possible Achalasia History of Present Illness Admission Date/PCP: 11/24/18 16:24 KAY BRUSH MD History of Present Illness: DONALD GARRIDO is a 43 year old male patient admitted under Dr Brush's service had been in the ICU and intubated due to aspiration pneumonia now out of ICU and had abnormal x ray patient says has GERD has a tob history as well Dr Brush requesting an EGD ? possible air fluid level ? possible achalasia Past Medical History Cardiac Medical History: Reports: Hyperlipidema, Hypertension Denies: Coronary Artery Disease, Myocardial Infarction Pulmonary Medical History: Reports: Chronic Obstructive Pulmonary Disease (COPD) - not on home o2 Denies: Asthma, Bronchitis, Pneumonia Neurological Medical History: Denies: Seizures GI Medical History: Reports: Gastroesophageal Reflux Disease Musculoskeltal Medical History: Denies: Arthritis Psychiatric Medical History: Reports: Bipolar Disorder, Depression Hematology: Denies: Anemia Infectious Medical History: Reports: Methicillin-Resistant Staph Aureus Past Surgical History Past Surgical History: Reports: Cholecystectomy, Orthopedic Surgery - 9 back surgeries, with lower abdominal midline incision. Social History Smoking Status: Current Every Day Smoker Cigarettes Packs Per Day: 2 Number of Years Smokin Frequency of Alcohol Use: Heavy Hx Recreational Drug Use: Yes Drugs: Marijuana Hx Prescription Drug Abuse: Yes - Advance Directive Resuscitation Status: Full Code Family History Family History: CAD, COPD, Hypertension Parental Family History Reviewed: Yes Children Family History Reviewed: Unknown Sibling(s) Family History Reviewed.: Unknown Medication/Allergy Home Medications: Baclofen [Baclofen 20 Mg Tablet] 20 mg PO QIDP PRN 11/25/18 Enalapril Maleate [Vasotec 10 mg Tablet] 10 mg PO DAILY 11/25/18 Hydroxyzine Pamoate [Vistaril 25 mg Capsule] 25 mg PO Q8HP PRN 11/25/18 Ondansetron HCl [Zofran 4 mg Tablet] 4 mg PO Q8HP PRN 11/25/18 Trazodone HCl [Desyrel] 100 mg PO QHS 11/25/18 Amlodipine Besylate [Norvasc 2.5 mg Tablet] 2.5 mg PO Q12 11/30/18 Atorvastatin Calcium [Lipitor 20 mg Tablet] 20 mg PO QHS 11/30/18 Benztropine Mesylate [Benztropine Mesylate 2 mg Tablet] 2 mg PO Q12 11/30/18 Buspirone HCl 15 mg PO Q8 11/30/18 Esomeprazole Magnesium 40 mg PO Q6AM 11/30/18 Fenofibrate Nanocrystallized [Tricor 145 mg Tablet] 145 mg PO DAILY 11/30/18 Fluoxetine HCl 80 mg PO DAILY 11/30/18 Gabapentin [Neurontin 300 mg Capsule] 300 mg PO Q8 11/30/18 Haloperidol 10 mg PO QPM 11/30/18 Oxycodone HCl 15 mg PO Q6HP PRN 11/30/18 Tamsulosin HCl [Flomax 0.4 mg Cap.sr] 0.4 mg PO QPM 11/30/18 Allergies/Adverse Reactions: iodine [Iodine] Allergy (Intermediate, Verified 11/24/18 14:10) Blisters Shellfish * [Shellfish] Allergy (Intermediate, Verified 11/24/18 14:10) Blisters clonazepam [From Klonopin] Allergy (Verified 11/24/18 14:10) Blisters Review of Systems Constitutional: ABSENT: fever(s), headache(s), night sweats, weakness Eyes: ABSENT: visual disturbances Ears: ABSENT: hearing changes Nose, Mouth, and Throat: ABSENT: mouth pain, sore throat Cardiovascular: PRESENT: orthropnea. ABSENT: palpitations Respiratory: ABSENT: dyspnea, hemoptysis Gastrointestinal: PRESENT: heartburn. ABSENT: dysphagia, melena, nausea, vomiting Genitourinary: ABSENT: dysuria, hematuria Musculoskeletal: ABSENT: deformity, joint swelling Integumentary: ABSENT: lesions, pruritus Neurological: ABSENT: syncope, tingling, tremor(s), vertigo Endocrine: ABSENT: polydipsia, polyphagia, polyuria Hematologic/Lymphatic: ABSENT: easy bruising Physical Exam Vital Signs: Temp Pulse Resp BP Pulse Ox 97.9 F 68 16 127/83 H 90 L 12/05/18 08:52 12/05/18 08:52 12/05/18 08:52 12/05/18 08:52 12/05/18 08:52 Intake & Output 12/04/18 12/05/18 12/06/18 06:59 06:59 06:59 Intake Total 1570 3145 Output Total 4525 1100 Balance -2955 2045 Weight 117.3 kg 117.5 kg General appearance: PRESENT: mild distress, well-developed, well-nourished Head exam: PRESENT: atraumatic, normocephalic Eye exam: PRESENT: EOMI, PERRLA. ABSENT: nystagmus, periorbital swelling, scleral icterus Mouth exam: PRESENT: moist, neck supple Throat exam: ABSENT: tonsillar exudate, tonsillogmegaly Neck exam: ABSENT: meningismus, tenderness, thyromegaly Respiratory exam: PRESENT: symmetrical. ABSENT: wheezes Cardiovascular exam: PRESENT: RRR, +S1, +S2 GI/Abdominal exam: PRESENT: soft. ABSENT: rebound, rigid, tenderness Extremities exam: ABSENT: joint swelling Musculoskeletal exam: PRESENT: full ROM Neurological exam: PRESENT: oriented to time, oriented to situation, CN II-XII grossly intact Focused psych exam: ABSENT: restlessness Skin exam: PRESENT: normal color. ABSENT: mottled, pallor, urticaria, vesicles Results Laboratory Results: 12/05/18 05:47 12/05/18 05:47 12/04/18 12/05/18 12/05/18 13:35 05:47 05:47 WBC 13.8 H RBC 4.20 L Hgb 11.8 L Hct 34.5 L MCV 82 MCH 28.0 MCHC 34.1 RDW 15.4 H Plt Count 336 Seg Neutrophils % 84.7 H Carbonic Acid 0.91 L HCO3/H2CO3 Ratio 26:1 ABG pH 7.52 H ABG pCO2 30.3 L ABG pO2 48.8 L ABG HCO3 24.2 H ABG O2 Saturation 88.9 L ABG Base Excess 2.2 FiO2 3L Sodium 143.8 Potassium 4.0 Chloride 108 H Carbon Dioxide 28 Anion Gap 8 BUN 10 Creatinine 0.57 Est GFR ( Amer) > 60 Glucose 129 H Calcium 8.8 Magnesium 2.3 11/24/18 11/24/18 11/25/18 13:00 13:00 12:51 Creatine Kinase 102 88 CK-MB (CK-2) 2.45 Troponin I < 0.012 Impressions: Head CT 11/24/18 15:38 IMPRESSION: NORMAL BRAIN CT WITHOUT CONTRAST. EVIDENCE OF ACUTE STROKE: NO. KUB X-Ray 12/01/18 00:00 IMPRESSION: Persistent gaseous distention of colon consistent with colon ileus. Chest X-Ray 12/02/18 00:00 IMPRESSION: 1. Improved patchy opacities in the lower lobes. 2. Trace left pleural effusion. Modified Barium Swallow 12/04/18 11:02 IMPRESSION: TRACE LARYNGEAL PENETRATION WITH THIN LIQUIDS. NO ASPIRATION. PLEASE SEE SPEECH PATHOLOGIST REPORT FOR OTHER FINDINGS AND RECOMMENDATIONS. Esophagus X-Ray 12/04/18 11:16 IMPRESSION: 1. SMALL SLIDING HIATAL HERNIA WITH MILD GASTROESOPHAGEAL REFLUX. 2. ESOPHAGEAL DYSMOTILITY WITH SLOW OPENING OF THE LOWER ESOPHAGEAL SPHINCTER CAUSING AIR-FLUID LEVEL WITHIN THE ESOPHAGUS. ESOPHAGEAL ACHALASIA SHOULD BE CONSIDERED. Assessment & Plan - Diagnosis (1) Abnormal esophagram Plan: will need to schedule EGD sedation will be tricky however will do in OR with close anesthesia follow up Risks, benefits and alternatives are discussed with the patient in detial further recommendations to follow - Time Time Spent: 50 to 70 Minutes
--- NOTE | 2018-12-05 13:40 | Operative Report ---
Operative Report DATE OF SURGERY: 12/05/18 Operative Report: The risks benefits and alternatives of the procedure explained to the patient in detail and informed consent is obtained.A GIF Olympus video scope was inserted into the patient's mouth and hypopharynx, the esophagus is identified intubated and insufflated, the scope was then advanced through the esophagus stomach and duodenum, retroflexion maneuver is done, the esophagus stomach and first and second portions of the duodenum examined. PREOPERATIVE DIAGNOSIS: Abnormal esophagram POSTOPERATIVE DIAGNOSIS: Hiatal hernia. No erosive esophagitis. Esophagus does not appear to be predilated. No residual food noted in the esophagus. Relaxation of the LES is noted. Gastritis biopsies obtained OPERATION: EGD with biopsy SURGEON: VINOD HERRERA ANESTHESIA: LMAC TISSUE REMOVED OR ALTERED: As noted above. COMPLICATIONS: None. ESTIMATED BLOOD LOSS: None. INTRAOPERATIVE FINDINGS: As noted above. PROCEDURE: Patient tolerated the procedure well. No immediate postprocedure complications are noted. Patient is discharged back to his room in good condition. Resume regular diet. Resume previous activity level. Needs PPI therapy. Spoke with Dr. Steward.
--- NOTE | 2018-12-05 17:26 | RADIOLOGY REPORT (SQ) ---
EXAM DESCRIPTION: CHEST 2 VIEWS COMPLETED DATE/TIME: 12/05/2018 5:15 pm REASON FOR STUDY: pnemonia/mrsa COMPARISON: 12/02/2018 EXAM PARAMETERS: NUMBER OF VIEWS: two views TECHNIQUE: Digital Frontal and Lateral radiographic views of the chest acquired. RADIATION DOSE: NA LIMITATIONS: none FINDINGS: LUNGS AND PLEURA: Interstitial markings are prominent. No focal consolidation. No effusi ons. MEDIASTINUM AND HILAR STRUCTURES: No masses or contour abnormalities. HEART AND VASCULAR STRUCTURES: Heart is slightly enlarged. There is central vascular prominence. BONES: No acute findings. HARDWARE: None in the chest. OTHER: No other significant finding. IMPRESSION: Suspect mild interstitial edema. This is increased since prior study. TECHNICAL DOCUMENTATION: JOB ID: [id number] [employer]- All Rights Reserved Reading location - IP/workstation name: [email or web address]
[2018-12-05] MEDS: HALOPERIDOL 5 MG TABLET PO SCH (22:57)
[2018-12-05] MEDS: TRAZODONE HCL 50 MG TABLET PO SCH (22:58)
[2018-12-05] MEDS: ATORVASTATIN CALCIUM 20 MG TABLET PO SCH (23:00)
[2018-12-06] MEDS: LEVALBUTEROL HCL NEB 1.25 MG/3 ML AMPUL NEB SCH ×4 (02:19→19:51)
[2018-12-06 05:54] LABS: ABSOLUTE MONOCYTES (AUTO) 0.8 10^3/uL (0.1-1.4); ABSOLUTE NEUT (AUTO) 7.9 10^3/uL (1.7-8.2); BASOPHILS % (AUTO) 0.1 % (0-2); EOSINOPHILS % (AUTO) 0.1 % (0-6); HEMATOCRIT 35.4 % (37.9-51.0); HEMOGLOBIN 11.9 g/dL (13.5-17.0); LYMPHOCYTES % (AUTO) 10.7 % (13-45); MEAN CORPUSCULAR HEMOGLOBIN 27.8 pg (27.0-33.4); MEAN CORPUSCULAR HGB CONC 33.6 g/dL (32.0-36.0); MEAN CORPUSCULAR VOLUME 83 fl (80-97); MONOCYTES % (AUTO) 7.9 % (3-13); PLATELET COUNT 329 10^3/uL (150-450); RED BLOOD COUNT 4.27 10^6/uL (4.35-5.55); RED CELL DISTRIBUTION WIDTH 15.4 % (11.5-14.0); SEGMENTED NEUTROPHILS % (AUTO) 81.2 % (42-78); TOTAL CELLS COUNTED % (AUTO) 100 %; WHITE BLOOD COUNT 9.7 10^3/uL (4.0-10.5)
[2018-12-06] MEDS: BUSPIRONE HCL 10 MG TABLET PO SCH ×3 (05:55→22:52)
[2018-12-06] MEDS: GABAPENTIN 300 MG CAPSULE PO SCH ×3 (05:57→22:52)
[2018-12-06 06:44] LABS: ANION GAP 6 (5-19); BLOOD UREA NITROGEN 10 mg/dL (7-20); CALCIUM 8.8 mg/dL (8.4-10.2); CARBON DIOXIDE 30 mmol/L (22-30); CHLORIDE 105 mmol/L (98-107); GLUCOSE 158 mg/dL (75-110); POTASSIUM 4.3 mmol/L (3.6-5.0)
[2018-12-06] MEDS ORDERED: FUROSEMIDE INJ/PF 20 MG/2 ML SDV IV ONE (07:45)
--- NOTE | 2018-12-06 08:20 | PDOC PROGRESS REPORT ---
Subjective Progress Note for:: 12/06/18 Subjective:: Patient is currently doing well except the patient's O2 sat is dropped to up to 80%'s when he walks still requiring 4-5 neutral nasal cannula does not seems to be any distress but still too much oxygen needed Never had any oxygen as before at home's probably Patients might temporarily need oxygen's at home's Since chest x-ray shows some mild interstitial edema but otherwise no other gross abnormalities Since white count is also normal Is currently on a p.o. 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 ABSENT: scleral icterus Ear exam: PRESENT: normal external ear exam Mouth exam: PRESENT: moist, tongue midline Neck exam: PRESENT: full ROM. ABSENT: carotid bruit, JVD, lymphadenopathy, thyromegaly Respiratory exam: PRESENT: clear to auscultation wan Cardiovascular exam: PRESENT: RRR. ABSENT: diastolic murmur, rubs, systolic murmur Pulses: PRESENT: normal dorsalis pedis pul, +2 pedal pulses bilateral Vascular exam: PRESENT: normal capillary refill GI/Abdominal exam: PRESENT: normal bowel sounds, soft. ABSENT: distended, guarding, mass, organolmegaly, rebound, tenderness Rectal exam: PRESENT: deferred Musculoskeletal exam: PRESENT: ambulatory Neurological exam: PRESENT: alert, awake, oriented to person, oriented to place, oriented to time, oriented to situation, CN II-XII grossly intact. ABSENT: motor sensory deficit Psychiatric exam: PRESENT: appropriate affect, normal mood. ABSENT: homicidal ideation, suicidal ideation Skin exam: PRESENT: dry, intact, warm. ABSENT: cyanosis, rash Results Laboratory Results: 12/06/18 05:28 12/06/18 05:28 12/06/18 12/06/18 05:28 05:28 WBC 9.7 RBC 4.27 L Hgb 11.9 L Hct 35.4 L MCV 83 MCH 27.8 MCHC 33.6 RDW 15.4 H Plt Count 329 Seg Neutrophils % 81.2 H Sodium 140.6 Potassium 4.3 Chloride 105 Carbon Dioxide 30 Anion Gap 6 BUN 10 Creatinine 0.68 Est GFR ( Amer) > 60 Glucose 158 H Calcium 8.8 Magnesium 2.3 11/24/18 11/24/18 11/25/18 13:00 13:00 12:51 Creatine Kinase 102 88 CK-MB (CK-2) 2.45 Troponin I < 0.012 Impressions: Head CT 11/24/18 15:38 IMPRESSION: NORMAL BRAIN CT WITHOUT CONTRAST. EVIDENCE OF ACUTE STROKE: NO. KUB X-Ray 12/01/18 00:00 IMPRESSION: Persistent gaseous distention of colon consistent with colon ileus. Modified Barium Swallow 12/04/18 11:02 IMPRESSION: TRACE LARYNGEAL PENETRATION WITH THIN LIQUIDS. NO ASPIRATION. PLEASE SEE SPEECH PATHOLOGIST REPORT FOR OTHER FINDINGS AND RECOMMENDATIONS. Esophagus X-Ray 12/04/18 11:16 IMPRESSION: 1. SMALL SLIDING HIATAL HERNIA WITH MILD GASTROESOPHAGEAL REFLUX. 2. ESOPHAGEAL DYSMOTILITY WITH SLOW OPENING OF THE LOWER ESOPHAGEAL SPHINCTER CAUSING AIR-FLUID LEVEL WITHIN THE ESOPHAGUS. ESOPHAGEAL ACHALASIA SHOULD BE CONSIDERED. Chest X-Ray 12/05/18 16:24 IMPRESSION: Suspect mild interstitial edema. This is increased since prior study. Assessment & Plan - Diagnosis (1) MRSA pneumonia Qualifiers: Lung location: unspecified part of lung Is this a current diagnosis for this admission?: Yes Plan: Continues to p.o. Bactrim (2) Acute respiratory failure with hypoxia Is this a current diagnosis for this admission?: Yes Plan: Continues to oxygen's Try to wean off from the oxygen's before go home at least 2 to 3 L We will get the VQ scan to rule out any embolism (3) COPD with acute exacerbation Is this a current diagnosis for this admission?: Yes Plan: Reduce the prednisone 20 mg p.o. daily (4) Chronic pain disorder Is this a current diagnosis for this admission?: Yes Plan: Follow with the pain management (5) Hypertension Qualifiers: Hypertension type: unspecified secondary hypertension Qualified Code(s): I15.9 - Secondary hypertension, unspecified; I15 - Secondary hypertension Is this a current diagnosis for this admission?: Yes Plan: Currently stable (6) Anxiety and depression Is this a current diagnosis for this admission?: Yes (7) BPH (benign prostatic hypertrophy) Qualifiers: Lower urinary tract symptom detail: unspecified Is this a current diagnosis for this admission?: Yes Plan: We increased the Flomax twice a day (8) Bipolar disorder Qualifiers: Active/Remission status: currently active Is this a current diagnosis for this admission?: Yes Plan: Follow-up with the psychiatrist - Time Time Spent with patient: 25-34 minutes Level of Care: IMCU Anticipated discharge: Home with Homehealth Within: Other - Plan Summary Plan Summary: Start the patient on the Lasix for the next couple of days she they can help reduce the interstitial edema and helps to reduce the oxygen requirement continues to nebulizer treatments with the patient's oxygen requirement going down remains stable hopefully discharge on a Sunday patient is going to stay on the s in the hospital
[2018-12-06] MEDS: LACTULOSE SYRUP 20 GM/30 ML UDCUP PO SCH ×2 (10:00→17:18)
[2018-12-06] MEDS ORDERED: PREDNISONE 20 MG TABLET PO SCH (10:00)
[2018-12-06] MEDS: THIAMINE HCL 100 MG TABLET PO SCH ×2 (10:02→22:50)
[2018-12-06] MEDS: BENZTROPINE MESYLATE 1 MG TABLET PO SCH ×2 (10:04→22:51)
[2018-12-06] MEDS: FUROSEMIDE 20 MG TABLET PO SCH (10:11)
[2018-12-06] MEDS: TAMSULOSIN HCL 0.4 MG CAP.SR.24H PO SCH ×2 (10:12→22:52)
[2018-12-06] MEDS: FLUOXETINE HCL 20 MG CAPSULE PO SCH (10:13)
[2018-12-06] MEDS: ENALAPRIL MALEATE 10 MG TABLET PO SCH (10:14)
[2018-12-06] MEDS: PANTOPRAZOLE SODIUM 40 MG TABLET.DR PO SCH (10:14)
[2018-12-06] MEDS: SULFAMETHOXAZOLE/TRIMETHOPRIM 800-160 MG TABLET PO SCH ×2 (10:15→22:50)
[2018-12-06] MEDS: PAROXETINE HCL 20 MG TABLET PO SCH (10:15)
[2018-12-06] MEDS: BACLOFEN 20 MG TABLET PO SCH ×4 (10:15→22:50)
[2018-12-06] MEDS: NICOTINE 21 MG/24 HR PATCH.TD24 TD SCH (10:16)
[2018-12-06] MEDS: AMLODIPINE BESYLATE 2.5 MG TABLET PO SCH ×2 (10:16→22:52)
[2018-12-06] MEDS: ENOXAPARIN SODIUM INJ 40 MG/0.4 ML DISP.SYRIN SUBCUT SCH (10:17)
[2018-12-06] MEDS: OXYCODONE HCL IR 5 MG TABLET PO PRN ×2 (10:38→18:13)
[2018-12-06] MEDS: UMECLIDINIUM BROMIDE 62.5 MCG/DOSE IH SCH (10:43)
--- NOTE | 2018-12-06 15:48 | RADIOLOGY REPORT (SQ) ---
EXAM DESCRIPTION: NM LUNG VENT/PERF SCAN COMPLETED DATE/TIME: 12/06/2018 3:37 pm REASON FOR STUDY: continuous low O2 sat COMPARISON: None. RADIONUCLIDE AND DOSE: 5.45 millicuries TC-99m MAA Intravenous 31.91 millicuries TC-99m DTPA Inhaled aerosol TECHNIQUE: Eight views of the lungs acquired post ventilation of DTPA aerosol. Eight matching views of the lungs acquired following injection of MAA. LIMITATIONS: None. FINDINGS: VENTILATION: Symmetric and homogeneous distribution of DTPA aerosol during ventilatory pha se. No significant areas of photopenia. PERFUSION: Large segmental defect in mid left lung, best seen on the posterior images. OTHER: No other significant finding. IMPRESSION: High probability pulmonary embolus left lung. TECHNICAL DOCUMENTATION: JOB ID: [id number] [employer]- All Rights Reserved Reading location - IP/workstation name: [email or web address]
[2018-12-06] MEDS: ENOXAPARIN SODIUM INJ 120 MG/0.8 ML DISP.SYRIN SUBCUT SCH (17:17)
--- NOTE | 2018-12-06 17:21 | RADIOLOGY REPORT (SQ) ---
EXAM DESCRIPTION: VENOUS BILATERAL LOWER COMPLETED DATE/TIME: 12/06/2018 5:11 pm REASON FOR STUDY: pe/leg edema COMPARISON: None. TECHNIQUE: Dynamic and static beckford scale and color images acquired of both lower extremity venous sy stems. Selected spectral images acquired with additional compression and augmentation maneuvers. Imag es stored on PACS. LIMITATIONS: None. FINDINGS: RIGHT LEG COMMON FEMORAL AND FEMORAL: Normal phasicity, compression and augmentation. No visualized echogenic m aterial on beckford scale. No defects on color images. POPLITEAL: Normal compression and augmentation. No visualized echogenic material on beckford scale. No de fects on color images. CALF VESSELS: Normal compression and augmentation. No visualized echogenic material on beckford scale. No defects on color image. GSV AND SSV: Normal compression. No visualized echogenic material on beckford scale. No defects on color images. ANY DEEP VENOUS INSUFFICIENCY: Not evaluated. ANY EVIDENCE OF POPLITEAL CYST: No. OTHER: No other significant finding. LEFT LEG COMMON FEMORAL AND FEMORAL: Normal phasicity, compression and augmentation. No visualized echogenic m aterial on beckford scale. No defects on color images. POPLITEAL: Normal compression and augmentation. No visualized echogenic material on beckford scale. No de fects on color images. CALF VESSELS: Noncompressible left posterior tibial vein. GSV AND SSV: Normal compression. No visualized echogenic material on beckford scale. No defects on color images. ANY DEEP VENOUS INSUFFICIENCY: Not evaluated. ANY EVIDENCE POPLITEAL CYST: No. OTHER: No other significant finding. IMPRESSION: Noncompressible left posterior tibial vein.NO EVIDENCE DVT IN EITHER LEG femoral or popl iteal veins. TECHNICAL DOCUMENTATION: JOB ID: [id number] [id number] 2010 [employer]- All Rights Reserved Reading location - IP/workstation name: [email or web address]
[2018-12-06 19:19] LABS: APPEARANCE,URINE CLEAR; BILIRUBIN,URINE NEGATIVE (NEGATIVE); COLOR,URINE STRAW; GLUCOSE, URINE 50 mg/dL (NEGATIVE); KETONES,URINE NEGATIVE (NEGATIVE); LEUKOCYTE ESTERASE,URINE NEGATIVE (NEGATIVE); NITRITE,URINE NEGATIVE (NEGATIVE); PROTEIN,URINE NEGATIVE (NEGATIVE); URINE SPECIFIC GRAVITY 1.002; UROBILINOGEN,URINE NEGATIVE mg/dL (<2.0)
[2018-12-06] MEDS: HALOPERIDOL 5 MG TABLET PO SCH (22:51)
[2018-12-06] MEDS: TRAZODONE HCL 50 MG TABLET PO SCH (22:51)
[2018-12-06] MEDS: ATORVASTATIN CALCIUM 20 MG TABLET PO SCH (22:52)
[2018-12-07] MEDS: LEVALBUTEROL HCL NEB 1.25 MG/3 ML AMPUL NEB SCH ×4 (02:09→20:21)
[2018-12-07 05:32] LABS: ANION GAP 7 (5-19); BLOOD UREA NITROGEN 11 mg/dL (7-20); CALCIUM 8.7 mg/dL (8.4-10.2); CARBON DIOXIDE 29 mmol/L (22-30); CHLORIDE 104 mmol/L (98-107); GLUCOSE 145 mg/dL (75-110); POTASSIUM 4.1 mmol/L (3.6-5.0)
[2018-12-07] MEDS: ENOXAPARIN SODIUM INJ 120 MG/0.8 ML DISP.SYRIN SUBCUT SCH ×2 (06:01→17:19)
[2018-12-07] MEDS: BUSPIRONE HCL 10 MG TABLET PO SCH ×3 (06:02→21:20)
[2018-12-07] MEDS: GABAPENTIN 300 MG CAPSULE PO SCH ×3 (06:02→21:22)
[2018-12-07] MEDS: SULFAMETHOXAZOLE/TRIMETHOPRIM 800-160 MG TABLET PO SCH ×2 (09:42→21:19)
[2018-12-07] MEDS: FUROSEMIDE 20 MG TABLET PO SCH (09:42)
[2018-12-07] MEDS: THIAMINE HCL 100 MG TABLET PO SCH ×2 (09:43→21:19)
[2018-12-07] MEDS: BENZTROPINE MESYLATE 1 MG TABLET PO SCH ×2 (09:43→21:23)
[2018-12-07] MEDS: PAROXETINE HCL 20 MG TABLET PO SCH (09:43)
[2018-12-07] MEDS: PREDNISONE 10 MG TABLET PO SCH (09:43)
[2018-12-07] MEDS: AMLODIPINE BESYLATE 2.5 MG TABLET PO SCH ×2 (09:44→21:23)
[2018-12-07] MEDS: PANTOPRAZOLE SODIUM 40 MG TABLET.DR PO SCH (09:44)
[2018-12-07] MEDS: FLUOXETINE HCL 20 MG CAPSULE PO SCH (09:44)
[2018-12-07] MEDS: TAMSULOSIN HCL 0.4 MG CAP.SR.24H PO SCH ×2 (09:44→21:22)
[2018-12-07] MEDS: NICOTINE 21 MG/24 HR PATCH.TD24 TD SCH (09:45)
[2018-12-07] MEDS: UMECLIDINIUM BROMIDE 62.5 MCG/DOSE IH SCH (09:45)
[2018-12-07] MEDS: BACLOFEN 20 MG TABLET PO SCH ×4 (09:45→21:22)
[2018-12-07] MEDS: ENALAPRIL MALEATE 10 MG TABLET PO SCH (09:45)
[2018-12-07] MEDS: LACTULOSE SYRUP 20 GM/30 ML UDCUP PO SCH ×2 (09:47→17:19)
[2018-12-07] MEDS ORDERED: PREDNISONE 20 MG TABLET PO SCH (10:00)
[2018-12-07] MEDS: OXYCODONE HCL IR 5 MG TABLET PO PRN (12:06)
--- NOTE | 2018-12-07 14:19 | PDOC CONSULTATION ---
Consultation Consult Date: 12/07/18 Attending physician:: KAY BRUSH Provider Consulted: WARNER VICTOR Consult reason:: Newly noted PE History of Present Illness Admission Date/PCP: 11/24/18 16:24 KAY BRUSH MD Patient complains of: Shortness of breath, dyspnea on exertion History of Present Illness: DONALD GARRIDO is a 43 year old male who presented with unresponsive and in severe respiratory distress, had an ICU stay with intubation was ultimately extubated. But his oxygen needs still remained high, he is on 6 L and he still had desaturations into the 80s. Therefore his PCP Dr. Brush ordered a VQ scan as well as lower extremity Dopplers. Lower extremity Dopplers were negative but the VQ scan showed a high probability for PE. Unfortunately he has a severe iodine allergy so cannot get IV contrast. He was placed on Lovenox. We were consulted to decide on long-term anticoagulation. Past Medical History Cardiac Medical History: Reports: Hyperlipidema, Hypertension Denies: Coronary Artery Disease, Myocardial Infarction Pulmonary Medical History: Reports: Chronic Obstructive Pulmonary Disease (COPD) - not on home o2 Denies: Asthma, Bronchitis, Pneumonia Neurological Medical History: Denies: Seizures GI Medical History: Reports: Gastroesophageal Reflux Disease Musculoskeltal Medical History: Denies: Arthritis Psychiatric Medical History: Reports: Bipolar Disorder, Depression Hematology: Denies: Anemia Infectious Medical History: Reports: Methicillin-Resistant Staph Aureus Past Surgical History Past Surgical History: Reports: Cholecystectomy, Orthopedic Surgery - 9 back surgeries, with lower abdominal midline incision. Social History Information Source: Patient Smoking Status: Current Every Day Smoker Cigarettes Packs Per Day: 2 Number of Years Smokin Frequency of Alcohol Use: Heavy Hx Recreational Drug Use: Yes Drugs: Marijuana Hx Prescription Drug Abuse: Yes - Advance Directive Resuscitation Status: Full Code Family History Family History: CAD, COPD, Hypertension Parental Family History Reviewed: Yes Children Family History Reviewed: Yes Sibling(s) Family History Reviewed.: Yes Medication/Allergy Home Medications: Baclofen [Baclofen 20 Mg Tablet] 20 mg PO QIDP PRN 11/25/18 Enalapril Maleate [Vasotec 10 mg Tablet] 10 mg PO DAILY 11/25/18 Hydroxyzine Pamoate [Vistaril 25 mg Capsule] 25 mg PO Q8HP PRN 11/25/18 Ondansetron HCl [Zofran 4 mg Tablet] 4 mg PO Q8HP PRN 11/25/18 Trazodone HCl [Desyrel] 100 mg PO QHS 11/25/18 Amlodipine Besylate [Norvasc 2.5 mg Tablet] 2.5 mg PO Q12 11/30/18 Atorvastatin Calcium [Lipitor 20 mg Tablet] 20 mg PO QHS 11/30/18 Benztropine Mesylate [Benztropine Mesylate 2 mg Tablet] 2 mg PO Q12 11/30/18 Buspirone HCl 15 mg PO Q8 11/30/18 Esomeprazole Magnesium 40 mg PO Q6AM 11/30/18 Fenofibrate Nanocrystallized [Tricor 145 mg Tablet] 145 mg PO DAILY 11/30/18 Fluoxetine HCl 80 mg PO DAILY 11/30/18 Gabapentin [Neurontin 300 mg Capsule] 300 mg PO Q8 11/30/18 Haloperidol 10 mg PO QPM 11/30/18 Oxycodone HCl 15 mg PO Q6HP PRN 11/30/18 Tamsulosin HCl [Flomax 0.4 mg Cap.sr] 0.4 mg PO QPM 11/30/18 Allergies/Adverse Reactions: iodine [Iodine] Allergy (Intermediate, Verified 11/24/18 14:10) Blisters Shellfish * [Shellfish] Allergy (Intermediate, Verified 11/24/18 14:10) Blisters clonazepam [From Klonopin] Allergy (Verified 11/24/18 14:10) Blisters Review of Systems Constitutional: ABSENT: chills, fever(s), headache(s), weight gain, weight loss Eyes: ABSENT: visual disturbances Ears: ABSENT: hearing changes Cardiovascular: ABSENT: chest pain, dyspnea on exertion, edema, orthropnea, palpitations Respiratory: ABSENT: cough, hemoptysis Gastrointestinal: ABSENT: abdominal pain, constipation, diarrhea, hematemesis, hematochezia, nausea, vomiting Genitourinary: ABSENT: dysuria, hematuria Musculoskeletal: ABSENT: joint swelling Integumentary: ABSENT: rash, wounds Neurological: ABSENT: abnormal gait, abnormal speech, confusion, dizziness, focal weakness, syncope Psychiatric: ABSENT: anxiety, depression, homidical ideation, suicidal ideation Endocrine: ABSENT: cold intolerance, heat intolerance, polydipsia, polyuria Hematologic/Lymphatic: ABSENT: easy bleeding, easy bruising Physical Exam Vital Signs: Temp Pulse Resp BP Pulse Ox 98.4 F 90 20 99/65 L 94 12/07/18 12:00 12/07/18 13:42 12/07/18 12:00 12/07/18 07:54 12/07/18 12:00 Intake & Output 12/06/18 12/07/18 12/08/18 06:59 06:59 05:59 Intake Total 2725 3275 Output Total 1725 425 620 Balance 1000 2850 -620 Weight 115.3 kg 113.9 kg General appearance: PRESENT: no acute distress, well-developed, well-nourished Head exam: PRESENT: atraumatic, normocephalic Eye exam: PRESENT: conjunctiva pink, EOMI, PERRLA. ABSENT: scleral icterus Ear exam: PRESENT: normal external ear exam Mouth exam: PRESENT: moist, tongue midline Neck exam: ABSENT: carotid bruit, JVD, lymphadenopathy, thyromegaly Respiratory exam: PRESENT: clear to auscultation wan. ABSENT: rales, rhonchi, wheezes Cardiovascular exam: PRESENT: RRR. ABSENT: diastolic murmur, rubs, systolic murmur Pulses: PRESENT: normal dorsalis pedis pul Vascular exam: PRESENT: normal capillary refill GI/Abdominal exam: PRESENT: normal bowel sounds, soft. ABSENT: distended, guarding, mass, organolmegaly, rebound, tenderness Rectal exam: PRESENT: deferred Extremities exam: PRESENT: full ROM. ABSENT: calf tenderness, clubbing, pedal edema Neurological exam: PRESENT: alert, awake, oriented to person, oriented to place, oriented to time, oriented to situation, CN II-XII grossly intact. ABSENT: motor sensory deficit Psychiatric exam: PRESENT: appropriate affect, normal mood. ABSENT: homicidal ideation, suicidal ideation Skin exam: PRESENT: dry, intact, warm. ABSENT: cyanosis, rash Results Laboratory Results: 12/06/18 05:28 12/07/18 04:21 12/06/18 12/07/18 18:35 04:21 Sodium 139.8 Potassium 4.1 Chloride 104 Carbon Dioxide 29 Anion Gap 7 BUN 11 Creatinine 0.67 Est GFR ( Amer) > 60 Glucose 145 H Calcium 8.7 Magnesium 2.2 Urine Color STRAW Urine Appearance CLEAR Urine pH 7.0 Ur Specific [place] 1.002 Urine Protein NEGATIVE Urine Glucose (UA) 50 H Urine Ketones NEGATIVE Urine Blood NEGATIVE Urine Nitrite NEGATIVE Ur Leukocyte Esterase NEGATIVE Urine WBC (Auto) 0 11/24/18 11/24/18 11/25/18 13:00 13:00 12:51 Creatine Kinase 102 88 CK-MB (CK-2) 2.45 Troponin I < 0.012 Impressions: Head CT 11/24/18 15:38 IMPRESSION: NORMAL BRAIN CT WITHOUT CONTRAST. EVIDENCE OF ACUTE STROKE: NO. KUB X-Ray 12/01/18 00:00 IMPRESSION: Persistent gaseous distention of colon consistent with colon ileus. Modified Barium Swallow 12/04/18 11:02 IMPRESSION: TRACE LARYNGEAL PENETRATION WITH THIN LIQUIDS. NO ASPIRATION. PLEASE SEE SPEECH PATHOLOGIST REPORT FOR OTHER FINDINGS AND RECOMMENDATIONS. Esophagus X-Ray 12/04/18 11:16 IMPRESSION: 1. SMALL SLIDING HIATAL HERNIA WITH MILD GASTROESOPHAGEAL REFLUX. 2. ESOPHAGEAL DYSMOTILITY WITH SLOW OPENING OF THE LOWER ESOPHAGEAL SPHINCTER CAUSING AIR-FLUID LEVEL WITHIN THE ESOPHAGUS. ESOPHAGEAL ACHALASIA SHOULD BE CONSIDERED. Chest X-Ray 12/05/18 16:24 IMPRESSION: Suspect mild interstitial edema. This is increased since prior study. Lung Scan-VQ NM 12/06/18 00:00 IMPRESSION: High probability pulmonary embolus left lung. Venous Doppler Study 12/06/18 00:00 IMPRESSION: Noncompressible left posterior tibial vein.NO EVIDENCE DVT IN EITHER LEG femoral or popliteal veins. Assessment & Plan - Diagnosis (1) Other pulmonary embolism without acute cor pulmonale Qualifiers: Chronicity: acute Qualified Code(s): I26.99 - Other pulmonary embolism without acute cor pulmonale Is this a current diagnosis for this admission?: Yes Plan: Acute PE, may have been there from the beginning or may have been provoked from the situation. Regardless 6 months of anticoagulation is indicated. Since his oxygen status is still tenuous I would recommend continuing with Lovenox. However his kidney function is normal so ultimately when his oxygen levels are stable on a lower level of continuous flow oxygen, we can switch to Xarelto 15 mg twice daily for 21 days then 20 mg daily for at least 6 months. - Time Time Spent: Greater than 70 Minutes - Inpatient Certification Based on my medical assessment, after consideration of the patient's comorbidities, presenting symptoms, or acuity I expect that the services needed warrant INPATIENT care.: Yes I certify that my determination is in accordance with my understanding of Medicare's requirements for reasonable and necessary INPATIENT services [42 CFR 412.3e].: Yes Medical Necessity: Need For Continuous Telemetry Monitoring, Need for Nebulizer Therapy and Monitoring of Response
--- NOTE | 2018-12-07 15:36 | PDOC PROGRESS REPORT ---
Subjective Progress Note for:: 12/07/18 Subjective:: Patient reported issue with maintain adequate oxygen saturation. He remain on supplemental oxygen via nasal cannula. No chest pain or palpitation. No nausea, vomiting or abdominal pain. No fever or chills. 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 ABSENT: scleral icterus Ear exam: PRESENT: normal external ear exam Mouth exam: PRESENT: moist Respiratory exam: PRESENT: clear to auscultation wan, decreased breath sounds - at lung bases Cardiovascular exam: PRESENT: RRR. ABSENT: diastolic murmur, rubs, systolic murmur Vascular exam: ABSENT: pallor GI/Abdominal exam: PRESENT: normal bowel sounds, soft. ABSENT: distended, guarding, mass, organolmegaly, rebound, tenderness Rectal exam: PRESENT: deferred Extremities exam: ABSENT: pedal edema Neurological exam: PRESENT: alert, awake, oriented to person, oriented to place, oriented to time, oriented to situation, CN II-XII grossly intact. ABSENT: motor sensory deficit Psychiatric exam: PRESENT: appropriate affect, normal mood. ABSENT: homicidal ideation, suicidal ideation Skin exam: PRESENT: dry, warm Results Laboratory Results: 12/06/18 05:28 12/07/18 04:21 12/06/18 12/07/18 18:35 04:21 Sodium 139.8 Potassium 4.1 Chloride 104 Carbon Dioxide 29 Anion Gap 7 BUN 11 Creatinine 0.67 Est GFR ( Amer) > 60 Glucose 145 H Calcium 8.7 Magnesium 2.2 Urine Color STRAW Urine Appearance CLEAR Urine pH 7.0 Ur Specific [place] 1.002 Urine Protein NEGATIVE Urine Glucose (UA) 50 H Urine Ketones NEGATIVE Urine Blood NEGATIVE Urine Nitrite NEGATIVE Ur Leukocyte Esterase NEGATIVE Urine WBC (Auto) 0 11/24/18 11/24/18 11/25/18 13:00 13:00 12:51 Creatine Kinase 102 88 CK-MB (CK-2) 2.45 Troponin I < 0.012 Impressions: Head CT 11/24/18 15:38 IMPRESSION: NORMAL BRAIN CT WITHOUT CONTRAST. EVIDENCE OF ACUTE STROKE: NO. KUB X-Ray 12/01/18 00:00 IMPRESSION: Persistent gaseous distention of colon consistent with colon ileus. Modified Barium Swallow 12/04/18 11:02 IMPRESSION: TRACE LARYNGEAL PENETRATION WITH THIN LIQUIDS. NO ASPIRATION. PLEASE SEE SPEECH PATHOLOGIST REPORT FOR OTHER FINDINGS AND RECOMMENDATIONS. Esophagus X-Ray 12/04/18 11:16 IMPRESSION: 1. SMALL SLIDING HIATAL HERNIA WITH MILD GASTROESOPHAGEAL REFLUX. 2. ESOPHAGEAL DYSMOTILITY WITH SLOW OPENING OF THE LOWER ESOPHAGEAL SPHINCTER CAUSING AIR-FLUID LEVEL WITHIN THE ESOPHAGUS. ESOPHAGEAL ACHALASIA SHOULD BE CONSIDERED. Chest X-Ray 12/05/18 16:24 IMPRESSION: Suspect mild interstitial edema. This is increased since prior study. Lung Scan-VQ NM 12/06/18 00:00 IMPRESSION: High probability pulmonary embolus left lung. Venous Doppler Study 12/06/18 00:00 IMPRESSION: Noncompressible left posterior tibial vein.NO EVIDENCE DVT IN EITHER LEG femoral or popliteal veins. Assessment & Plan - Diagnosis (1) Acute respiratory failure with hypoxia Is this a current diagnosis for this admission?: Yes Plan: Improving. Continue current medication management. (2) MRSA pneumonia Qualifiers: Lung location: unspecified part of lung Is this a current diagnosis for this admission?: Yes Plan: Maintain on oral Bactrim DS coverage as per sensitivity report. (3) COPD with acute exacerbation Is this a current diagnosis for this admission?: Yes Plan: Continue current medication management. (4) Hypertension Qualifiers: Hypertension type: unspecified secondary hypertension Qualified Code(s): I15.9 - Secondary hypertension, unspecified; I15 - Secondary hypertension Is this a current diagnosis for this admission?: Yes Plan: Continue current medication management. (5) Other pulmonary embolism without acute cor pulmonale Qualifiers: Chronicity: acute Qualified Code(s): I26.99 - Other pulmonary embolism without acute cor pulmonale Is this a current diagnosis for this admission?: Yes Plan: Continue current medication management. - Time Time Spent with patient: 25-34 minutes Medications reviewed and adjusted accordingly: Yes Anticipated discharge: Home with Homehealth Within: Other - Inpatient Certification Based on my medical assessment, after consideration of the patient's c omorbidities, presenting symptoms, or acuity I expect that the services needed warrant INPATIENT care.: Yes I certify that my determination is in accordance with my understanding of Medicare's requirements for reasonable and necessary INPATIENT services [42 CFR 412.3e].: Yes Medical Necessity: Significant Comorbidiites Make Outpatient Treatment Too Risky, Need Close Monitoring Due to Risk of Patient Decompensation, Need For Continuous Telemetry Monitoring, Need for Nebulizer Therapy and Monitoring of Response, Risk of Complication if Not Cared For in Hospital, Risk of Diagnosis Which Will Require Inpatient Eval/Care/Monitoring Post Hospital Care: D/C Auto Service Representative Documentation - Plan Summary Plan Summary: Continue current medication management.
[2018-12-07] MEDS: HALOPERIDOL 5 MG TABLET PO SCH (21:19)
[2018-12-07] MEDS: ATORVASTATIN CALCIUM 20 MG TABLET PO SCH (21:21)
[2018-12-07] MEDS: TRAZODONE HCL 50 MG TABLET PO SCH (21:21)
[2018-12-08] MEDS: LEVALBUTEROL HCL NEB 1.25 MG/3 ML AMPUL NEB SCH ×4 (02:12→19:54)
[2018-12-08 05:05] LABS: ANION GAP 9 (5-19); BLOOD UREA NITROGEN 9 mg/dL (7-20); CARBON DIOXIDE 25 mmol/L (22-30); CHLORIDE 108 mmol/L (98-107); GLUCOSE 161 mg/dL (75-110); POTASSIUM 4.6 mmol/L (3.6-5.0)
[2018-12-08] MEDS: ENOXAPARIN SODIUM INJ 120 MG/0.8 ML DISP.SYRIN SUBCUT SCH ×2 (05:17→17:18)
[2018-12-08] MEDS: GABAPENTIN 300 MG CAPSULE PO SCH ×3 (05:18→22:28)
[2018-12-08] MEDS: BUSPIRONE HCL 10 MG TABLET PO SCH ×3 (05:18→22:24)
[2018-12-08] MEDS: LACTULOSE SYRUP 20 GM/30 ML UDCUP PO SCH ×2 (09:52→17:13)
[2018-12-08] MEDS: SULFAMETHOXAZOLE/TRIMETHOPRIM 800-160 MG TABLET PO SCH ×2 (09:52→22:27)
[2018-12-08] MEDS: BENZTROPINE MESYLATE 1 MG TABLET PO SCH ×2 (09:53→22:26)
[2018-12-08] MEDS: TAMSULOSIN HCL 0.4 MG CAP.SR.24H PO SCH ×2 (09:53→22:28)
[2018-12-08] MEDS: ENALAPRIL MALEATE 10 MG TABLET PO SCH (09:53)
[2018-12-08] MEDS: THIAMINE HCL 100 MG TABLET PO SCH ×2 (09:53→22:23)
[2018-12-08] MEDS: PANTOPRAZOLE SODIUM 40 MG TABLET.DR PO SCH (09:53)
[2018-12-08] MEDS: PAROXETINE HCL 20 MG TABLET PO SCH (09:53)
[2018-12-08] MEDS: AMLODIPINE BESYLATE 2.5 MG TABLET PO SCH ×2 (09:54→22:28)
[2018-12-08] MEDS: FLUOXETINE HCL 20 MG CAPSULE PO SCH (09:54)
[2018-12-08] MEDS: BACLOFEN 20 MG TABLET PO SCH ×4 (09:54→22:29)
[2018-12-08] MEDS: PREDNISONE 10 MG TABLET PO SCH (09:54)
[2018-12-08] MEDS: NICOTINE 21 MG/24 HR PATCH.TD24 TD SCH (09:54)
[2018-12-08] MEDS: UMECLIDINIUM BROMIDE 62.5 MCG/DOSE IH SCH (09:57)
[2018-12-08] MEDS: OXYCODONE HCL IR 5 MG TABLET PO PRN ×2 (12:31→18:33)
--- NOTE | 2018-12-08 16:09 | PDOC PROGRESS REPORT ---
Subjective Progress Note for:: 12/08/18 Subjective:: Patient reported improvement in his breathing and downward trend in his supplemental oxygen requirement. No chest pain or palpitation. No nausea, vomiting or abdominal pain. No fever or chills. 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 ABSENT: pallor, scleral icterus Ear exam: PRESENT: normal external ear exam Mouth exam: PRESENT: moist Respiratory exam: PRESENT: clear to auscultation wan, decreased breath sounds - at lung bases Cardiovascular exam: PRESENT: RRR. ABSENT: diastolic murmur, rubs, systolic murmur GI/Abdominal exam: PRESENT: normal bowel sounds, soft. ABSENT: distended, guarding, mass, organomegaly, rebound, tenderness Extremities exam: ABSENT: pedal edema Neurological exam: PRESENT: alert, awake, oriented to person, oriented to place, oriented to time, oriented to situation, CN II-XII grossly intact. ABSENT: motor sensory deficit Psychiatric exam: PRESENT: appropriate affect, normal mood. ABSENT: homicidal ideation, suicidal ideation Skin exam: PRESENT: dry, warm Results Laboratory Results: 12/06/18 05:28 12/08/18 03:58 12/08/18 03:58 Sodium 142.4 Potassium 4.6 Chloride 108 H Carbon Dioxide 25 Anion Gap 9 BUN 9 Creatinine 0.72 Est GFR ( Amer) > 60 Glucose 161 H Calcium 9.0 Magnesium 2.2 11/24/18 11/24/18 11/25/18 13:00 13:00 12:51 Creatine Kinase 102 88 CK-MB (CK-2) 2.45 Troponin I < 0.012 Impressions: Head CT 11/24/18 15:38 IMPRESSION: NORMAL BRAIN CT WITHOUT CONTRAST. EVIDENCE OF ACUTE STROKE: NO. KUB X-Ray 12/01/18 00:00 IMPRESSION: Persistent gaseous distention of colon consistent with colon ileus. Modified Barium Swallow 12/04/18 11:02 IMPRESSION: TRACE LARYNGEAL PENETRATION WITH THIN LIQUIDS. NO ASPIRATION. PLEASE SEE SPEECH PATHOLOGIST REPORT FOR OTHER FINDINGS AND RECOMMENDATIONS. Esophagus X-Ray 12/04/18 11:16 IMPRESSION: 1. SMALL SLIDING HIATAL HERNIA WITH MILD GASTROESOPHAGEAL REFLUX. 2. ESOPHAGEAL DYSMOTILITY WITH SLOW OPENING OF THE LOWER ESOPHAGEAL SPHINCTER CAUSING AIR-FLUID LEVEL WITHIN THE ESOPHAGUS. ESOPHAGEAL ACHALASIA SHOULD BE CONSIDERED. Chest X-Ray 12/05/18 16:24 IMPRESSION: Suspect mild interstitial edema. This is increased since prior study. Lung Scan-VQ NM 12/06/18 00:00 IMPRESSION: High probability pulmonary embolus left lung. Venous Doppler Study 12/06/18 00:00 IMPRESSION: Noncompressible left posterior tibial vein.NO EVIDENCE DVT IN EITHER LEG femoral or popliteal veins. Assessment & Plan - Diagnosis (1) Acute respiratory failure with hypoxia Is this a current diagnosis for this admission?: Yes (2) MRSA pneumonia Qualifiers: Lung location: unspecified part of lung Is this a current diagnosis for this admission?: Yes (3) COPD with acute exacerbation Is this a current diagnosis for this admission?: Yes (4) Hypertension Qualifiers: Hypertension type: unspecified secondary hypertension Qualified Code(s): I15.9 - Secondary hypertension, unspecified; I15 - Secondary hypertension Is this a current diagnosis for this admission?: Yes (5) Other pulmonary embolism without acute cor pulmonale Qualifiers: Chronicity: acute Qualified Code(s): I26.99 - Other pulmonary embolism without acute cor pulmonale Is this a current diagnosis for this admission?: Yes - Time Time Spent with patient: 25-34 minutes Level of Care: IMCU Medications reviewed and adjusted accordingly: Yes Anticipated discharge: Home with Homehealth Within: Other - Inpatient Certification Based on my medical assessment, after consideration of the patient's comorbidities, presenting symptoms, or acuity I expect that the services needed warrant INPATIENT care.: Yes I certify that my determination is in accordance with my understanding of Medicare's requirements for reasonable and necessary INPATIENT services [42 CFR 412.3e].: Yes Medical Necessity: Significant Comorbidiites Make Outpatient Treatment Too Risky, Need Close Monitoring Due to Risk of Patient Decompensation, Need For Continuous Telemetry Monitoring, Need for Nebulizer Therapy and Monitoring of Response, Risk of Complication if Not Cared For in Hospital, Risk of Diagnosis Which Will Require Inpatient Eval/Care/Monitoring Post Hospital Care: D/C Final Inspector And Tester Documentation - Plan Summary Plan Summary: Continue on all current medication management.
[2018-12-08] MEDS: TRAZODONE HCL 50 MG TABLET PO SCH (22:25)
[2018-12-08] MEDS: ATORVASTATIN CALCIUM 20 MG TABLET PO SCH (22:27)
[2018-12-08] MEDS: HALOPERIDOL 5 MG TABLET PO SCH (22:28)
[2018-12-09] MEDS: OXYCODONE HCL IR 5 MG TABLET PO PRN ×3 (01:15→15:45)
[2018-12-09] MEDS: LEVALBUTEROL HCL NEB 1.25 MG/3 ML AMPUL NEB SCH ×4 (02:03→20:05)
[2018-12-09] MEDS: ENOXAPARIN SODIUM INJ 120 MG/0.8 ML DISP.SYRIN SUBCUT SCH ×2 (05:20→17:56)
[2018-12-09] MEDS: BUSPIRONE HCL 10 MG TABLET PO SCH ×3 (05:20→21:45)
[2018-12-09] MEDS: GABAPENTIN 300 MG CAPSULE PO SCH ×4 (05:20→23:59)
[2018-12-09 05:24] LABS: HEMOGLOBIN 13.1 g/dL (13.5-17.0); MEAN CORPUSCULAR HEMOGLOBIN 27.7 pg (27.0-33.4); MEAN CORPUSCULAR HGB CONC 33.5 g/dL (32.0-36.0); MEAN CORPUSCULAR VOLUME 83 fl (80-97); PLATELET COUNT 413 10^3/uL (150-450); RED BLOOD COUNT 4.72 10^6/uL (4.35-5.55); RED CELL DISTRIBUTION WIDTH 15.8 % (11.5-14.0); WHITE BLOOD COUNT 9.5 10^3/uL (4.0-10.5)
[2018-12-09 06:02] LABS: ANION GAP 12 (5-19); BLOOD UREA NITROGEN 9 mg/dL (7-20); CALCIUM 9.3 mg/dL (8.4-10.2); CARBON DIOXIDE 24 mmol/L (22-30); CHLORIDE 106 mmol/L (98-107); GLUCOSE 133 mg/dL (75-110); POTASSIUM 4.8 mmol/L (3.6-5.0)
--- NOTE | 2018-12-09 08:13 | PDOC PROGRESS REPORT ---
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 ABSENT: scleral icterus Ear exam: PRESENT: normal external ear exam Mouth exam: PRESENT: moist, tongue midline Neck exam: ABSENT: carotid bruit, JVD, lymphadenopathy, thyromegaly Respiratory exam: PRESENT: clear to auscultation wan. ABSENT: rales, rhonchi, wheezes Cardiovascular exam: PRESENT: RRR. ABSENT: diastolic murmur, rubs, systolic murmur Pulses: PRESENT: normal dorsalis pedis pul Vascular exam: PRESENT: normal capillary refill GI/Abdominal exam: PRESENT: normal bowel sounds, soft. ABSENT: distended, guarding, mass, organolmegaly, rebound, tenderness Rectal exam: PRESENT: deferred Extremities exam: PRESENT: full ROM. ABSENT: calf tenderness, clubbing, pedal edema Neurological exam: PRESENT: alert, awake, oriented to person, oriented to place, oriented to time, oriented to situation, CN II-XII grossly intact. ABSENT: motor sensory deficit Psychiatric exam: PRESENT: appropriate affect, normal mood. ABSENT: homicidal ideation, suicidal ideation Skin exam: PRESENT: dry, intact, warm. ABSENT: cyanosis, rash Results Laboratory Results: 12/09/18 04:43 12/09/18 04:43 12/09/18 12/09/18 04:43 04:43 WBC 9.5 RBC 4.72 Hgb 13.1 L Hct 39.0 MCV 83 MCH 27.7 MCHC 33.5 RDW 15.8 H Plt Count 413 Sodium 141.5 Potassium 4.8 Chloride 106 Carbon Dioxide 24 Anion Gap 12 BUN 9 Creatinine 0.76 Est GFR ( Amer) > 60 Glucose 133 H Calcium 9.3 Magnesium 2.1 11/24/18 11/24/18 11/25/18 13:00 13:00 12:51 Creatine Kinase 102 88 CK-MB (CK-2) 2.45 Troponin I < 0.012 Impressions: Head CT 11/24/18 15:38 IMPRESSION: NORMAL BRAIN CT WITHOUT CONTRAST. EVIDENCE OF ACUTE STROKE: NO. KUB X-Ray 12/01/18 00:00 IMPRESSION: Persistent gaseous distention of colon consistent with colon ileus. Modified Barium Swallow 12/04/18 11:02 IMPRESSION: TRACE LARYNGEAL PENETRATION WITH THIN LIQUIDS. NO ASPIRATION. PLEASE SEE SPEECH PATHOLOGIST REPORT FOR OTHER FINDINGS AND RECOMMENDATIONS. Esophagus X-Ray 12/04/18 11:16 IMPRESSION: 1. SMALL SLIDING HIATAL HERNIA WITH MILD GASTROESOPHAGEAL REFLUX. 2. ESOPHAGEAL DYSMOTILITY WITH SLOW OPENING OF THE LOWER ESOPHAGEAL SPHINCTER CAUSING AIR-FLUID LEVEL WITHIN THE ESOPHAGUS. ESOPHAGEAL ACHALASIA SHOULD BE CONSIDERED. Chest X-Ray 12/05/18 16:24 IMPRESSION: Suspect mild interstitial edema. This is increased since prior study. Lung Scan-VQ NM 12/06/18 00:00 IMPRESSION: High probability pulmonary embolus left lung. Venous Doppler Study 12/06/18 00:00 IMPRESSION: Noncompressible left posterior tibial vein.NO EVIDENCE DVT IN EITHER LEG femoral or popliteal veins. Assessment & Plan - Diagnosis (1) Other pulmonary embolism without acute cor pulmonale Qualifiers: Chronicity: acute Qualified Code(s): I26.99 - Other pulmonary embolism without acute cor pulmonale Is this a current diagnosis for this admission?: Yes Plan: Chronic blood loss secondary to the ulceration that was noted, and continue with Lovenox while inpatient and transition to Xarelto 15 mg twice daily on discharge - Time Time Spent with patient: 15-24 minutes
[2018-12-09] MEDS: FLUOXETINE HCL 20 MG CAPSULE PO SCH (09:32)
[2018-12-09] MEDS: THIAMINE HCL 100 MG TABLET PO SCH ×2 (09:33→21:44)
[2018-12-09] MEDS: TAMSULOSIN HCL 0.4 MG CAP.SR.24H PO SCH ×2 (09:34→21:44)
[2018-12-09] MEDS: PANTOPRAZOLE SODIUM 40 MG TABLET.DR PO SCH (09:34)
[2018-12-09] MEDS: PAROXETINE HCL 20 MG TABLET PO SCH (09:35)
[2018-12-09] MEDS: SULFAMETHOXAZOLE/TRIMETHOPRIM 800-160 MG TABLET PO SCH ×2 (09:35→21:44)
[2018-12-09] MEDS: BENZTROPINE MESYLATE 1 MG TABLET PO SCH ×2 (09:35→21:46)
[2018-12-09] MEDS: NICOTINE 21 MG/24 HR PATCH.TD24 TD SCH (09:36)
[2018-12-09] MEDS: AMLODIPINE BESYLATE 2.5 MG TABLET PO SCH ×2 (09:36→21:47)
[2018-12-09] MEDS: PREDNISONE 10 MG TABLET PO SCH (09:37)
[2018-12-09] MEDS: UMECLIDINIUM BROMIDE 62.5 MCG/DOSE IH SCH (09:37)
[2018-12-09] MEDS: LACTULOSE SYRUP 20 GM/30 ML UDCUP PO SCH ×2 (09:38→19:09)
[2018-12-09] MEDS: BACLOFEN 20 MG TABLET PO SCH ×4 (09:38→21:47)
[2018-12-09] MEDS: ENALAPRIL MALEATE 10 MG TABLET PO SCH (09:39)
--- NOTE | 2018-12-09 09:47 | PDOC PROGRESS REPORT ---
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 ABSENT: scleral icterus Ear exam: PRESENT: normal external ear exam Mouth exam: PRESENT: moist, tongue midline Neck exam: PRESENT: full ROM. ABSENT: carotid bruit, JVD, lymphadenopathy, thyromegaly Respiratory exam: PRESENT: clear to auscultation wan Cardiovascular exam: PRESENT: RRR. ABSENT: diastolic murmur, rubs, systolic murmur Pulses: PRESENT: normal dorsalis pedis pul, +2 pedal pulses bilateral Vascular exam: PRESENT: normal capillary refill GI/Abdominal exam: PRESENT: normal bowel sounds, soft. ABSENT: distended, guarding, mass, organolmegaly, rebound, tenderness Rectal exam: PRESENT: deferred Musculoskeletal exam: PRESENT: ambulatory Neurological exam: PRESENT: alert, awake, oriented to person, oriented to place, oriented to time, oriented to situation, CN II-XII grossly intact. ABSENT: motor sensory deficit Psychiatric exam: PRESENT: appropriate affect, normal mood. ABSENT: homicidal ideation, suicidal ideation Skin exam: PRESENT: dry, intact, warm. ABSENT: cyanosis, rash Results Laboratory Results: 12/09/18 04:43 12/09/18 04:43 12/09/18 12/09/18 04:43 04:43 WBC 9.5 RBC 4.72 Hgb 13.1 L Hct 39.0 MCV 83 MCH 27.7 MCHC 33.5 RDW 15.8 H Plt Count 413 Sodium 141.5 Potassium 4.8 Chloride 106 Carbon Dioxide 24 Anion Gap 12 BUN 9 Creatinine 0.76 Est GFR ( Amer) > 60 Glucose 133 H Calcium 9.3 Magnesium 2.1 11/24/18 11/24/18 11/25/18 13:00 13:00 12:51 Creatine Kinase 102 88 CK-MB (CK-2) 2.45 Troponin I < 0.012 Impressions: Head CT 11/24/18 15:38 IMPRESSION: NORMAL BRAIN CT WITHOUT CONTRAST. EVIDENCE OF ACUTE STROKE: NO. KUB X-Ray 12/01/18 00:00 IMPRESSION: Persistent gaseous distention of colon consistent with colon ileus. Modified Barium Swallow 12/04/18 11:02 IMPRESSION: TRACE LARYNGEAL PENETRATION WITH THIN LIQUIDS. NO ASPIRATION. PLEASE SEE SPEECH PATHOLOGIST REPORT FOR OTHER FINDINGS AND RECOMMENDATIONS. Esophagus X-Ray 12/04/18 11:16 IMPRESSION: 1. SMALL SLIDING HIATAL HERNIA WITH MILD GASTROESOPHAGEAL REFLUX. 2. ESOPHAGEAL DYSMOTILITY WITH SLOW OPENING OF THE LOWER ESOPHAGEAL SPHINCTER CAUSING AIR-FLUID LEVEL WITHIN THE ESOPHAGUS. ESOPHAGEAL ACHALASIA SHOULD BE CONSIDERED. Chest X-Ray 12/05/18 16:24 IMPRESSION: Suspect mild interstitial edema. This is increased since prior study. Lung Scan-VQ NM 12/06/18 00:00 IMPRESSION: High probability pulmonary embolus left lung. Venous Doppler Study 12/06/18 00:00 IMPRESSION: Noncompressible left posterior tibial vein.NO EVIDENCE DVT IN EITHER LEG femoral or popliteal veins. Assessment & Plan - Diagnosis (1) MRSA pneumonia Qualifiers: Lung location: unspecified part of lung Is this a current diagnosis for this admission?: Yes Plan: Continues to p.o. Bactrim (2) Acute respiratory failure with hypoxia Is this a current diagnosis for this admission?: Yes Plan: Currently all getting better continues to than oxygen's (3) COPD with acute exacerbation Is this a current diagnosis for this admission?: Yes Plan: Reduce the prednisone 20 mg p.o. daily (4) Chronic pain disorder Is this a current diagnosis for this admission?: Yes Plan: Follow with the pain management (5) Hypertension Qualifiers: Hypertension type: unspecified secondary hypertension Qualified Code(s): I15.9 - Secondary hypertension, unspecified; I15 - Secondary hypertension Is this a current diagnosis for this admission?: Yes Plan: Currently stable (6) Anxiety and depression Is this a current diagnosis for this admission?: Yes (7) BPH (benign prostatic hypertrophy) Qualifiers: Lower urinary tract symptom detail: unspecified Is this a current diagnosis for this admission?: Yes Plan: We increased the Flomax twice a day (8) Bipolar disorder Qualifiers: Active/Remission status: currently active Is this a current diagnosis for this admission?: Yes (9) Other pulmonary embolism without acute cor pulmonale Qualifiers: Chronicity: acute Qualified Code(s): I26.99 - Other pulmonary embolism without acute cor pulmonale Is this a current diagnosis for this admission?: Yes Plan: Continues to Lovenox while in the hospital per senior dynamics crm developer will switch to Xarelto on discharge - Time Time Spent with patient: 15-24 minutes Level of Care: IMCU Medications reviewed and adjusted accordingly: Yes Anticipated discharge: Home with Homehealth Within: Other - Plan Summary Plan Summary: Continues start physical therapy try to wean off from the oxygen's
[2018-12-09] MEDS: TRAZODONE HCL 50 MG TABLET PO SCH (21:44)
[2018-12-09] MEDS: HALOPERIDOL 5 MG TABLET PO SCH (21:45)
[2018-12-09] MEDS: ATORVASTATIN CALCIUM 20 MG TABLET PO SCH (21:47)
[2018-12-10] MEDS: LEVALBUTEROL HCL NEB 1.25 MG/3 ML AMPUL NEB SCH ×3 (01:45→13:33)
[2018-12-10] MEDS: BUSPIRONE HCL 10 MG TABLET PO SCH ×3 (01:49→14:00)
[2018-12-10] MEDS: BENZTROPINE MESYLATE 1 MG TABLET PO SCH ×2 (01:50→10:16)
[2018-12-10] MEDS: TAMSULOSIN HCL 0.4 MG CAP.SR.24H PO SCH ×2 (01:50→10:16)
[2018-12-10] MEDS: HALOPERIDOL 5 MG TABLET PO SCH (01:51)
[2018-12-10] MEDS: AMLODIPINE BESYLATE 2.5 MG TABLET PO SCH ×2 (01:51→10:16)
[2018-12-10] MEDS: SULFAMETHOXAZOLE/TRIMETHOPRIM 800-160 MG TABLET PO SCH ×2 (01:51→10:16)
[2018-12-10] MEDS: OXYCODONE HCL IR 5 MG TABLET PO PRN ×2 (03:07→10:15)
[2018-12-10] MEDS: GABAPENTIN 300 MG CAPSULE PO SCH ×2 (05:25→14:00)
[2018-12-10] MEDS: ENOXAPARIN SODIUM INJ 120 MG/0.8 ML DISP.SYRIN SUBCUT SCH (05:26)
[2018-12-10 06:20] LABS: ANION GAP 12 (5-19); BLOOD UREA NITROGEN 15 mg/dL (7-20); CALCIUM 9.3 mg/dL (8.4-10.2); CARBON DIOXIDE 22 mmol/L (22-30); CHLORIDE 101 mmol/L (98-107); GLUCOSE 138 mg/dL (75-110)
[2018-12-10 06:26] LABS: APPEARANCE,URINE CLEAR; BILIRUBIN,URINE NEGATIVE (NEGATIVE); COLOR,URINE YELLOW; GLUCOSE, URINE NEGATIVE (NEGATIVE); KETONES,URINE NEGATIVE (NEGATIVE); LEUKOCYTE ESTERASE,URINE NEGATIVE (NEGATIVE); NITRITE,URINE NEGATIVE (NEGATIVE); PROTEIN,URINE NEGATIVE (NEGATIVE); URINE SPECIFIC GRAVITY 1.008; UROBILINOGEN,URINE NEGATIVE mg/dL (<2.0)
[2018-12-10] MEDS: THIAMINE HCL 100 MG TABLET PO SCH (10:15)
[2018-12-10] MEDS: NICOTINE 21 MG/24 HR PATCH.TD24 TD SCH (10:15)
[2018-12-10] MEDS: PAROXETINE HCL 20 MG TABLET PO SCH (10:16)
[2018-12-10] MEDS: BACLOFEN 20 MG TABLET PO SCH ×2 (10:16→14:00)
[2018-12-10] MEDS: ENALAPRIL MALEATE 10 MG TABLET PO SCH (10:16)
[2018-12-10] MEDS: FLUOXETINE HCL 20 MG CAPSULE PO SCH (10:16)
[2018-12-10] MEDS: PANTOPRAZOLE SODIUM 40 MG TABLET.DR PO SCH (10:16)
[2018-12-10] MEDS: PREDNISONE 10 MG TABLET PO SCH (10:16)
[2018-12-10] MEDS: UMECLIDINIUM BROMIDE 62.5 MCG/DOSE IH SCH (10:17)
[2018-12-10] MEDS: LACTULOSE SYRUP 20 GM/30 ML UDCUP PO SCH (10:17)
--- NOTE | 2018-12-10 11:49 | PDOC DISCHARGE SUMMARY ---
Impression - Admit/DC Date/PCP Admission Date/Primary Care Provider: 11/24/18 16:24 KAY BRUSH MD Discharge Date: 12/10/18 - Discharge Diagnosis (1) MRSA pneumonia Is this a current diagnosis for this admission?: Yes (2) Acute respiratory failure with hypoxia Is this a current diagnosis for this admission?: Yes (3) COPD with acute exacerbation Is this a current diagnosis for this admission?: Yes (4) Chronic pain disorder Is this a current diagnosis for this admission?: Yes (5) Hypertension Is this a current diagnosis for this admission?: Yes (6) Anxiety and depression Is this a current diagnosis for this admission?: Yes (7) BPH (benign prostatic hypertrophy) Is this a current diagnosis for this admission?: Yes (8) Bipolar disorder Is this a current diagnosis for this admission?: Yes (9) Other pulmonary embolism without acute cor pulmonale Is this a current diagnosis for this admission?: Yes - Additional Information Resuscitation Status: Full Code Discharge Diet: As Tolerated, Regular Discharge Activity: Activity As Tolerated Referrals: MADDIE LEBRON MD [ACTIVE STAFF] - 12/30/18 1:30 pm (Office will call patient if an earlier appt. comes up.) WARNER VICTOR MD [ACTIVE STAFF] - 12/20/18 3:45 pm (Please bring Insurance card and Picture ID.) KAY BRUSH MD [Primary Care Provider] - 12/17/18 2:30 pm (f/u with dr zeng in 1 wk f/u with dr lebron f/u with pain mx and psych ) Prescriptions: Umeclidinium [place] [Incruse 62.5 Mcg Ellipta 7 Dose/Dpi] 1 inh IH DAILY #1 inhaler Nicotine [Nicoderm 21 mg/24 Hr Transderm Patch] 1 each TD DAILY #20 patch.td24 Sulfamethoxazole/Trimethoprim [Septra-Ds 800-160 mg Tablet] 1 tab PO Q12 #14 tablet Rivaroxaban [Xarelto 15 mg Tablet] 15 mg PO BID #42 tablet Levalbuterol HCl [Xopenex Neb 1.25 mg/3 ml Ampul] 1.25 mg NEB RTQ6 PRN #120 vial.neb PRN Reason: Home Medications: Enalapril Maleate [Vasotec 10 mg Tablet] 10 mg PO DAILY 11/25/18 Ondansetron HCl [Zofran 4 mg Tablet] 4 mg PO Q8HP PRN 11/25/18 Amlodipine Besylate [Norvasc 2.5 mg Tablet] 2.5 mg PO Q12 11/30/18 Atorvastatin Calcium [Lipitor 20 mg Tablet] 20 mg PO QHS 11/30/18 Benztropine Mesylate [Benztropine Mesylate 2 mg Tablet] 2 mg PO Q12 11/30/18 Buspirone HCl 15 mg PO Q8 11/30/18 Esomeprazole Magnesium 40 mg PO Q6AM 11/30/18 Fluoxetine HCl 80 mg PO DAILY 11/30/18 Gabapentin [Neurontin 300 mg Capsule] 300 mg PO Q8 11/30/18 Haloperidol 10 mg PO QPM 11/30/18 Oxycodone HCl 15 mg PO Q6HP PRN 11/30/18 Tamsulosin HCl [Flomax 0.4 mg Cap.sr] 0.4 mg PO QPM 11/30/18 Levalbuterol HCl [Xopenex Neb 1.25 mg/3 ml Ampul] 1.25 mg NEB RTQ6 PRN #120 vial.neb 12/10/18 Nicotine [Nicoderm 21 mg/24 Hr Transderm Patch] 1 each TD DAILY #20 patch.td24 12/10/18 Rivaroxaban [Xarelto 15 mg Tablet] 15 mg PO BID #42 tablet 12/10/18 Sulfamethoxazole/Trimethoprim [Septra-Ds 800-160 mg Tablet] 1 tab PO Q12 #14 tablet 12/10/18 Umeclidinium [place] [Incruse 62.5 Mcg Ellipta 7 Dose/Dpi] 1 inh IH DAILY #1 inhaler 12/10/18 History of Present Illiness History of Present Illness: DONALD GARRIDO is a 43 year old male Patient came to the emergency department with a questionable overdose of the medicationsAnd the patient's respiratory distressed and patient admitting in the intensive care units intubated Hospital Course Hospital Course: This is a 43-year-old male's with the history of the COPD chronic smoker history of the bipolar disorder multiple psych medications history of the chronic back problem and a chronic pain medications follow with the pain management came to the emergency department with the complaining of questionable overdose of the medications patient's respiratory distressed COPD acute exacerbations Patient was intubated in the ER for the intensive care units Patient was seen by the telecasting technician also found MRSA in the sputum given the vancomycin Patient's was extubated successfully and the patient put in the IMCU Patient's is seen by Dr. Lebron because of the requiring high oxygen's in the beginning continues to nebulizer treatments put on IV steroids Patient switch to the p.o. Bactrim and patient also switched to the p.o. steroid Patient's persistent require 4 to 6 L oxygen's especially when he walks underwent for the VQ scan and a VQ scan suggest the high probability Patient start on the Lovenox injections Consult the [facility] and suggest the continues the Xarelto as outpatients for 6-month Patient also have ultrasound for the lower extremity done was negative Patient unable to go for a CT scan due to the iodine and shellfish allergies Patient's otherwise remained stable required 2 L nasal cannula patients desperately wants to go home's Very extensive discussions with the patient and the patient's partner Martin regarding the patient's current conditions with all the test reports Discussed with the patient in the Martin regarding to watch for any fall or injury discussed about the Xarelto and potential side effect and complications Also discussed with the patient is to follow with the pain management in the psych to reduce some of the medications to prevent any fall At this points patient's risk and benefit discussed with all the other it security consultant and the patient and the family patient is appropriate for the blood thinner due to the high risk for the PE at this point Will switch to the Xarelto 20 mg up to 21 days Patient is to follow with the pain management in the psych and follow with the [place] Physical Exam Vital Signs: Temp Pulse Resp BP Pulse Ox 97.8 F 96 20 110/86 H 97 12/10/18 07:52 12/10/18 08:40 12/10/18 08:40 12/10/18 07:52 12/10/18 08:40 Intake & Output 12/09/18 12/10/18 12/11/18 06:59 06:59 06:59 Intake Total 3420 595 Output Total 100 250 Balance 3320 345 Weight 115 kg 113 kg General appearance: PRESENT: no acute distress, well-developed, well-nourished Head exam: PRESENT: atraumatic, normocephalic Eye exam: PRESENT: conjunctiva pink, EOMI, PERRLA. ABSENT: scleral icterus Ear exam: PRESENT: normal external ear exam Mouth exam: PRESENT: moist, tongue midline Neck exam: ABSENT: carotid bruit, JVD, lymphadenopathy, thyromegaly Respiratory exam: PRESENT: clear to auscultation wan. ABSENT: rales, rhonchi, w heezes Cardiovascular exam: PRESENT: RRR. ABSENT: diastolic murmur, rubs, systolic murmur Pulses: PRESENT: normal dorsalis pedis pul Vascular exam: PRESENT: normal capillary refill GI/Abdominal exam: PRESENT: normal bowel sounds, soft. ABSENT: distended, guarding, mass, organolmegaly, rebound, tenderness Rectal exam: PRESENT: deferred Extremities exam: PRESENT: full ROM. ABSENT: calf tenderness, clubbing, pedal edema Neurological exam: PRESENT: alert, awake, oriented to person, oriented to place, oriented to time, oriented to situation, CN II-XII grossly intact. ABSENT: motor sensory deficit Psychiatric exam: PRESENT: appropriate affect, normal mood. ABSENT: homicidal ideation, suicidal ideation Skin exam: PRESENT: dry, intact, warm. ABSENT: cyanosis, rash Results Laboratory Results: WBC 9.5 10^3/uL (4.0-10.5) 12/09/18 04:43 RBC 4.72 10^6/uL (4.35-5.55) 12/09/18 04:43 Hgb 13.1 g/dL (13.5-17.0) L 12/09/18 04:43 Hct 39.0 % (37.9-51.0) 12/09/18 04:43 MCV 83 fl (80-97) 12/09/18 04:43 MCH 27.7 pg (27.0-33.4) 12/09/18 04:43 MCHC 33.5 g/dL (32.0-36.0) 12/09/18 04:43 RDW 15.8 % (11.5-14.0) H 12/09/18 04:43 Plt Count 413 10^3/uL (150-450) 12/09/18 04:43 Lymph % (Auto) 10.7 % (13-45) L 12/06/18 05:28 Ralls % (Auto) 7.9 % (3-13) 12/06/18 05:28 Eos % (Auto) 0.1 % (0-6) 12/06/18 05:28 Baso % (Auto) 0.1 % (0-2) 12/06/18 05:28 Absolute Neuts (auto) 7.9 10^3/uL (1.7-8.2) 12/06/18 05:28 Absolute Lymphs (auto) 1.0 10^3/uL (0.5-4.7) 12/06/18 05:28 Absolute Monos (auto) 0.8 10^3/uL (0.1-1.4) 12/06/18 05:28 Absolute Eos (auto) 0.0 10^3/uL (0.0-0.6) 12/06/18 05:28 Absolute Basos (auto) 0.0 10^3/uL (0.0-0.2) 12/06/18 05:28 Seg Neutrophils % 81.2 % (42-78) H 12/06/18 05:28 PT 16.0 SEC (11.4-15.4) H 11/26/18 07:55 INR 1.28 11/26/18 07:55 APTT 42.7 SEC (23.5-35.8) H 11/26/18 07:55 Carbonic Acid 0.91 mmol/L (1.05-1.35) L 12/04/18 13:35 HCO3/H2CO3 Ratio 26:1 12/04/18 13:35 ABG pH 7.52 (7.35-7.45) H 12/04/18 13:35 ABG pCO2 30.3 mmHg (35-45) L 12/04/18 13:35 ABG pO2 48.8 mmHg (80-100) L 12/04/18 13:35 ABG HCO3 24.2 mmol/L (20-24) H 12/04/18 13:35 ABG Total CO2 25.2 mmol/L (23-27) 12/04/18 13:35 ABG O2 Saturation 88.9 % (94-98) L 12/04/18 13:35 ABG Base Excess 2.2 mmol/L 12/04/18 13:35 VBG pH 7.49 (7.30-7.42) H 11/29/18 07:47 VBG pCO2 31.5 mmHg (35-63) L 11/29/18 07:47 VBG HCO3 23.2 mmol/L (20-32) 11/29/18 07:47 VBG Base Excess 0.6 mmol/L 11/29/18 07:47 FiO2 3L 12/04/18 13:35 Sodium 135.3 mmol/L (137-145) L 12/10/18 05:22 Potassium 5.0 mmol/L (3.6-5.0) 12/10/18 05:22 Chloride 101 mmol/L (98-107) 12/10/18 05:22 Carbon Dioxide 22 mmol/L (22-30) 12/10/18 05:22 Anion Gap 12 (5-19) 12/10/18 05:22 BUN 15 mg/dL (7-20) 12/10/18 05:22 Creatinine 1.05 mg/dL (0.52-1.25) 12/10/18 05:22 Est GFR ( Amer) > 60 (>60) 12/10/18 05:22 Est GFR (MDRD) Non-Af > 60 (>60) 12/10/18 05:22 Glucose 138 mg/dL (75-110) H 12/10/18 05:22 POC Glucose 179 mg/dL (70-110) H 12/02/18 12:08 Hemoglobin A1c % 6.2 % (4.7-6.0) H 12/01/18 05:14 Lactic Acid 1.4 mmol/L (0.7-2.1) 11/24/18 20:30 Calcium 9.3 mg/dL (8.4-10.2) 12/10/18 05:22 Phosphorus 3.3 mg/dL (2.5-4.5) 11/30/18 06:16 Magnesium 2.0 mg/dL (1.6-2.3) 12/10/18 05:22 Total Bilirubin 0.6 mg/dL (0.2-1.3) 11/26/18 06:50 Direct Bilirubin 0.3 mg/dL (0.0-0.4) 11/26/18 06:50 Neonat Total Bilirubin Not Reportable 11/26/18 06:50 Neonat Direct Bilirubin Not Reportable 11/26/18 06:50 Neonat Indirect Bili Not Reportable 11/26/18 06:50 AST 18 U/L (17-59) 11/26/18 06:50 ALT 19 U/L (<50) 11/26/18 06:50 Alkaline Phosphatase 52 U/L (38-126) 11/26/18 06:50 Ammonia < 8.7 umol/L (9-33) L 11/26/18 07:55 Creatine Kinase 88 U/L (55-170) 11/25/18 12:51 CK-MB (CK-2) 2.45 ng/mL (<4.55) 11/24/18 13:00 Troponin I < 0.012 ng/mL 11/24/18 13:00 Total Protein 5.2 g/dL (6.3-8.2) L 11/26/18 06:50 Albumin 2.9 g/dL (3.5-5.0) L 11/26/18 06:50 TSH 0.90 uIU/mL (0.47-4.68) 11/24/18 20:30 Urine Color YELLOW 12/10/18 06:05 Urine Appearance CLEAR 12/10/18 06:05 Urine pH 7.0 (5.0-9.0) 12/10/18 06:05 Ur Specific [place] 1.008 12/10/18 06:05 Urine Protein NEGATIVE mg/dL (NEGATIVE) 12/10/18 06:05 Urine Glucose (UA) NEGATIVE mg/dL (NEGATIVE) 12/10/18 06:05 Urine Ketones NEGATIVE mg/dL (NEGATIVE) 12/10/18 06:05 Urine Blood NEGATIVE (NEGATIVE) 12/10/18 06:05 Urine Nitrite NEGATIVE (NEGATIVE) 12/10/18 06:05 Urine Nitrite (Reflex) NEGATIVE (NEGATIVE) 11/24/18 14:10 Urine Bilirubin NEGATIVE (NEGATIVE) 12/10/18 06:05 Urine Urobilinogen NEGATIVE mg/dL (<2.0) 12/10/18 06:05 Ur Leukocyte Esterase NEGATIVE (NEGATIVE) 12/10/18 06:05 Leukocyte Esterase Rfl NEGATIVE (NEGATIVE) 11/24/18 14:10 Urine WBC (Auto) 0 /HPF 12/10/18 06:05 Urine RBC (Auto) 0 /HPF 12/10/18 06:05 Urine WBC (Reflex) 1 /HPF 11/24/18 14:10 Urine Mucus (Auto) RARE /LPF 12/10/18 06:05 Urine Creatinine 244.2 mg/dL (22-328) 11/26/18 08:12 Urine Sodium 23 mmol/L (30-90) L 11/26/18 08:12 Urine Potassium 89.0 mmol/L (17-99) 11/26/18 08:12 Urine Ascorbic Acid NEGATIVE (NEGATIVE) 12/10/18 06:05 Time Trough Drawn 0532 12/02/18 05:32 Vancomycin Trough 17.8 ug/mL (5.0-20.0) 12/02/18 05:32 Salicylates < 1.0 mg/dL (2.0-20.0) L 11/24/18 13:00 Urine Opiates Screen NEGATIVE 11/24/18 13:00 Urine Methadone Screen NEGATIVE 11/24/18 13:00 Acetaminophen < 10 ug/mL (10-30) L 11/24/18 13:00 Ur Barbiturates Screen NEGATIVE 11/24/18 13:00 Ur Phencyclidine Scrn NEGATIVE 11/24/18 13:00 Ur Amphetamines Screen NEGATIVE 11/24/18 13:00 U Benzodiazepines Scrn NEGATIVE 11/24/18 13:00 Urine Cocaine Screen NEGATIVE 11/24/18 13:00 U Marijuana (THC) Screen NEGATIVE 11/24/18 13:00 Ethylene Glycol None Detected mg/dL (None detec) 11/24/18 20:30 Serum Alcohol < 10 mg/dL (NONE DETECTED) 11/24/18 13:00 Arsenic 6 ug/L (2-23) 11/24/18 20:30 Lead None Detected ug/dL (0-4) 11/24/18 20:30 Mercury None Detected ug/L (0.0-14.9) 11/24/18 20:30 11/24/18 13:00 CK-MB (CK-2) 2.45 Troponin I < 0.012 Impressions: Chest X-Ray 11/24/18 13:39 IMPRESSION: HEART ENLARGED WITHOUT FAILURE. NO OTHER SIGNIFICANT RADIOGRAPHIC FINDING IN THE CHEST. Head CT 11/24/18 15:38 IMPRESSION: NORMAL BRAIN CT WITHOUT CONTRAST. EVIDENCE OF ACUTE STROKE: NO. Chest X-Ray 11/24/18 15:39 IMPRESSION: TIP OF THE NASOGASTRIC TUBE IS IN THE MID ESOPHAGUS AND NEEDS TO BE ADVANCED. ENDOTRACHEAL TUBE APPEARS TO BE IN SATISFACTORY POSITION. Chest X-Ray 11/25/18 08:00 IMPRESSION: DEVELOPING AIRSPACE DISEASE IN THE LEFT LUNG BASE CONCERNING FOR PNEUMONIA, POSSIBLY RELATED TO ASPIRATION. LIFE LINES DESCRIBED. Chest X-Ray 11/26/18 06:00 IMPRESSION: Pleural and parenchymal opacities in the left base that could represent a combination of pleural fluid, consolidation and or atelectasis. Clinical correlation to exclude an infectious etiology is recommended. KUB X-Ray 11/27/18 00:00 IMPRESSION: Colonic distention. Most likely nonobstructive. Chest X-Ray 11/27/18 06:00 IMPRESSION: STABLE APPEARANCE OF THE CHEST. SUPPORT DEVICES UNCHANGED. Chest X-Ray 11/28/18 06:00 IMPRESSION: Interval improvement. No pneumothorax. KUB X-Ray 12/01/18 00:00 IMPRESSION: Persistent gaseous distention of colon consistent with colon ileus. Chest X-Ray 12/02/18 00:00 IMPRESSION: 1. Improved patchy opacities in the lower lobes. 2. Trace left pleural effusion. Modified Barium Swallow 12/04/18 11:02 IMPRESSION: TRACE LARYNGEAL PENETRATION WITH THIN LIQUIDS. NO ASPIRATION. PLEASE SEE SPEECH PATHOLOGIST REPORT FOR OTHER FINDINGS AND RECOMMENDATIONS. Esophagus X-Ray 12/04/18 11:16 IMPRESSION: 1. SMALL SLIDING HIATAL HERNIA WITH MILD GASTROESOPHAGEAL REFLUX. 2. ESOPHAGEAL DYSMOTILITY WITH SLOW OPENING OF THE LOWER ESOPHAGEAL SPHINCTER CAUSING AIR-FLUID LEVEL WITHIN THE ESOPHAGUS. ESOPHAGEAL ACHALASIA SHOULD BE CONSIDERED. Chest X-Ray 12/05/18 16:24 IMPRESSION: Suspect mild interstitial edema. This is increased since prior study. Lung Scan-VQ NM 12/06/18 00:00 IMPRESSION: High probability pulmonary embolus left lung. Venous Doppler Study 12/06/18 00:00 IMPRESSION: Noncompressible left posterior tibial vein.NO EVIDENCE DVT IN EITHER LEG femoral or popliteal veins. Plan Time Spent: Greater than 30 Minutes - Follow in the office in 1 week Follow with the pain management and a psych Is already seen in the psych in the hospital clear for the discharge Stroke Is this a Stroke Patient?: No Acute Heart Failure - Is this a Heart Failure Patient?: No
[2018-12-10 16:05] VITALS: BP 127/83
== END 2018-12-10 17:15 | disposition home health service (06) | DRG 917 ==
LOC: ER 13:23 → EH 16:24 → ICU 17:39 → 3W 11-30 04:14
PROVIDERS: ADMIT Family Medicine; ATTEND Internal Medicine Critical Care Medicine
PROC: 5A1945Z Respiratory Ventilation, 24-96 Consecutive Hours (ICD-10-PCS; principal; 2018-11-24)
PROC: 0BH17EZ Insertion of Endotracheal Airway into Trachea, Via Natural or Artificial Opening (ICD-10-PCS; 2018-11-24)
PROC: 0DB68ZX Excision of Stomach, Via Natural or Artificial Opening Endoscopic, Diagnostic (ICD-10-PCS; 2018-12-05)
DX: T50.914A Poisoning by multiple unspecified drugs, medicaments and biological substances, undetermined, initial encounter (principal); J15.212 Pneumonia due to Methicillin resistant Staphylococcus aureus; J96.01 Acute respiratory failure with hypoxia; I26.99 Other pulmonary embolism without acute cor pulmonale; J44.1 Chronic obstructive pulmonary disease with (acute) exacerbation; G93.40 Encephalopathy, unspecified; F11.20 Opioid dependence, uncomplicated; F25.9 Schizoaffective disorder, unspecified; F31.9 Bipolar disorder, unspecified; T17.908A Unspecified foreign body in respiratory tract, part unspecified causing other injury, initial encounter; I15.9 Secondary hypertension, unspecified; G89.29 Other chronic pain; Z22.322 Carrier or suspected carrier of Methicillin resistant Staphylococcus aureus; F41.8 Other specified anxiety disorders; N40.0 Benign prostatic hyperplasia without lower urinary tract symptoms; M54.9 Dorsalgia, unspecified; Z91.041 Radiographic dye allergy status; Z91.013 Allergy to seafood; Z79.01 Long term (current) use of anticoagulants; E78.5 Hyperlipidemia, unspecified; K21.9 Gastro-esophageal reflux disease without esophagitis; F17.210 Nicotine dependence, cigarettes, uncomplicated; F12.90 Cannabis use, unspecified, uncomplicated; F19.10 Other psychoactive substance abuse, uncomplicated; Z83.6 Family history of other diseases of the respiratory system; Z82.49 Family history of ischemic heart disease and other diseases of the circulatory system; Z79.899 Other long term (current) drug therapy; Z88.8 Allergy status to other drugs, medicaments and biological substances; R40.0 Somnolence; G47.9 Sleep disorder, unspecified; E66.9 Obesity, unspecified; Z68.34 Body mass index [BMI] 34.0-34.9, adult; K44.9 Diaphragmatic hernia without obstruction or gangrene; G24.01 Drug induced subacute dyskinesia; J04.10 Acute tracheitis without obstruction; K59.00 Constipation, unspecified
CPT/HCPCS: 00731; 36415; 36600; 43239; 70450; 71045; 71046; 74018; 74220; 74230; 78582; 80048; 80053; 80202; 80307; 81001; 82140; 82175; 82550; 82553; 82565; 82570; 82693; 82803; 82962; 83036; 83605; 83655; 83735; 83825; 84100; 84133; 84300; 84443; 84484; 85025; 85027; 85610; 85730; 87040; 87070; 87077; 87186; 87205; 88305; 90686; 93005; 93010; 93970; 94002; 94003; 94010; 96361; 96374; 96375; 99291; A9540; A9567; C1758; J0330; J0360; J1170; J1650; J1940; J2060; J2185; J2250; J2405; J2704; J2930; J3010; J3370; J3411; J3475; J3480; J3490; J7030; J7050; J7060; J7512; P9041; Q9969; S0119

== ENCOUNTER 2018-12-16 14:12 | Emergency (ER) | payer MEDICARE, MEDICAID ==
--- NOTE | 2018-12-16 14:56 | ER Document Report ---
ED Medical Screen (RME) - General Chief Complaint: High Blood Pressure Stated Complaint: BLOOD PRESSURE ISSUES Time Seen by Provider: 12/16/18 14:49 Primary Care Provider: KAY BRUSH MD [Primary Care Provider] - Follow up as needed Mode of Arrival: Ambulatory Information source: Patient Notes: Patient is a 43-year-old male with extensive past medical history presenting to the emergency department with complaints of generalized fatigue, elevated blood pressure and elevated heart rate. Patient reports he was discharged from this hospital 6 days ago, states he was intubated. Patient reports he went to pain management today and they referred him to the emergency department as he was pale and had abnormal vital signs. Patient is complaining of midsternal chest pressure that is been going on for several days. He does report that he has blood clots in his lung. I have greeted and performed a rapid initial assessment of this patient. A comprehensive ED assessment and evaluation of the patient, analysis of test results and completion of the medical decision making process will be conducted by additional ED providers. I have specifically instructed the patient or family members with the patient to immediately return to any nursing staff should anything change in the patient's condition or with their chief complaint. This medical record was dictated with voice recognizing software. There may be grammatical, syntax errors that are unintended. TRAVEL OUTSIDE OF THE [place] IN LAST 30 DAYS: No - Related Data Allergies/Adverse Reactions: iodine [Iodine] Allergy (Intermediate, Verified 11/24/18 14:10) Blisters Shellfish * [Shellfish] Allergy (Intermediate, Verified 11/24/18 14:10) Blisters clonazepam [From Klonopin] Allergy (Verified 11/24/18 14:10) Blisters Past Medical History - Social History Frequency of alcohol use: None Drug Abuse: None - Past Medical History Cardiac Medical History: Reports: Hx Hypercholesterolemia, Hx Hypertension Denies: Hx Coronary Artery Disease, Hx Heart Attack Pulmonary Medical History: Reports: Hx COPD - not on home o2 Denies: Hx Asthma, Hx Bronchitis, Hx Pneumonia Neurological Medical History: Denies: Hx Cerebrovascular Accident, Hx Seizures Endocrine Medical History: Renal/ Medical History: Reports: Hx Renal Insufficiency. Denies: Hx Peritoneal Dialysis GI Medical History: Reports: Hx Gastroesophageal Reflux Disease Musculoskeltal Medical History: Denies Hx Arthritis, Reports Hx Musculoskeletal Deformity, Reports Hx Musculoskeletal Trauma Skin Medical History: Reports Hx Cellulitis, Reports Hx MRSA Psychiatric Medical History: Reports: Hx Bipolar Disorder, Hx Depression, Hx Schizophrenia Infectious Medical History: Reports: Hx MRSA Past Surgical History: Reports: Hx Cholecystectomy, Hx Oral Surgery, Hx Orthopedic Surgery - 9 back surgeries, with lower abdominal midline incision. - Immunizations Immunizations up to date: Yes Hx Diphtheria, Pertussis, Tetanus Vaccination: Yes Doctor's Discharge - Discharge Referrals: KAY BRUSH MD [Primary Care Provider] - Follow up as needed
--- NOTE | 2018-12-16 16:45 | RADIOLOGY REPORT (SQ) ---
EXAM DESCRIPTION: CHEST SINGLE VIEW COMPLETED DATE/TIME: 12/16/2018 4:37 pm REASON FOR STUDY: CHEST PAIN COMPARISON: 12/05/2018. EXAM PARAMETERS: NUMBER OF VIEWS: One view. TECHNIQUE: Single frontal radiographic view of the chest acquired. RADIATION DOSE: NA LIMITATIONS: None. FINDINGS: LUNGS AND PLEURA: No opacities, masses or pneumothorax. No pleural effusion. MEDIASTINUM AND HILAR STRUCTURES: No masses. Contour normal. HEART AND VASCULAR STRUCTURES: Heart upper limits of normal in size. Normal vasculature. BONES: No acute findings. HARDWARE: None in the chest. OTHER: No other significant finding. IMPRESSION: NO ACUTE RADIOGRAPHIC FINDING IN THE CHEST. TECHNICAL DOCUMENTATION: JOB ID: [id number] [employer]- All Rights Reserved Reading location - IP/workstation name: [email or web address]
--- NOTE | 2018-12-16 17:09 | ER Document Report ---
ED General - General Chief Complaint: High Blood Pressure Stated Complaint: BLOOD PRESSURE ISSUES Time Seen by Provider: 12/16/18 14:49 Primary Care Provider: KAY BRUSH MD [Primary Care Provider] - Follow up in 3-5 days Mode of Arrival: Ambulatory Notes: Patient is a 43-year-old male who presents the emergency department with a chief complaint of pressure in his chest. Patient describes his pain as a person sitting on his chest. He went to pain management this morning and his blood pressure was high. He was then referred to the emergency department. He states his symptoms started yesterday. Patient was just recently admitted in the hospital. Patient had some nausea, vomiting, and diarrhea yesterday. He has not had those symptoms today. He was diagnosed with a pulmonary emboli. He is currently on Xarelto. Patient also states that he is got a history of hypertension, COPD, celiac's disease, multiple back surgeries with plates, and bipolar depression. Patient is now oxygen dependent on 2 L nasal cannula since his discharge from the hospital. TRAVEL OUTSIDE OF THE [place] IN LAST 30 DAYS: No - Related Data Allergies/Adverse Reactions: iodine [Iodine] Allergy (Intermediate, Verified 11/24/18 14:10) Blisters Shellfish * [Shellfish] Allergy (Intermediate, Verified 11/24/18 14:10) Blisters clonazepam [From Klonopin] Allergy (Verified 11/24/18 14:10) Blisters Past Medical History - General Information source: Patient - Social History Smoking Status: Former Smoker Frequency of alcohol use: None Drug Abuse: None Family History: CAD, COPD, Hypertension Patient has suicidal ideation: No Patient has homicidal ideation: No - Past Medical History Cardiac Medical History: Reports: Hx Hypercholesterolemia, Hx Hypertension Denies: Hx Coronary Artery Disease, Hx Heart Attack Pulmonary Medical History: Reports: Hx COPD - 2L NC at home Denies: Hx Asthma, Hx Bronchitis, Hx Pneumonia Neurological Medical History: Denies: Hx Cerebrovascular Accident, Hx Seizures Endocrine Medical History: Renal/ Medical History: Reports: Hx Renal Insufficiency. Denies: Hx Peritoneal Dialysis GI Medical History: Reports: Hx Gastroesophageal Reflux Disease Musculoskeletal Medical History: Denies Hx Arthritis, Reports Hx Musculoskeletal Deformity, Reports Hx Musculoskeletal Trauma Skin Medical History: Reports Hx Cellulitis, Reports Hx MRSA Psychiatric Medical History: Reports: Hx Bipolar Disorder, Hx Depression, Hx Schizophrenia Infectious Medical History: Reports: Hx MRSA Past Surgical History: Reports: Hx Cholecystectomy, Hx Oral Surgery, Hx Orthopedic Surgery - 11 back surgeries, with lower abdominal midline incision. - Immunizations Immunizations up to date: Yes Hx Diphtheria, Pertussis, Tetanus Vaccination: Yes Hx Pneumococcal Vaccination: 02/06/00 Review of Systems - Review of Systems Notes: REVIEW OF SYSTEMS: CONSTITUTIONAL : Denies recent illness. Denies recent unintentional weight loss. Denies fever, chills, or sweats. EENT: Denies eye, ear, throat, or mouth pain, discharge, or symptoms. Denies nasal or sinus congestion. CARDIOVASCULAR: See HPI. RESPIRATORY: Denies shortness of breath, cough, congestion, difficulty b reathing, or wheezing. GASTROINTESTINAL: See HPI. GENITOURINARY: Denies difficulty urinating, burning, blood in urine, urgency or frequency. MUSCULOSKELETAL: Denies neck and back pain. Denies joint pain or swelling. SKIN: Denies rash, itchiness, or lesions HEMATOLOGIC : Denies easy bruising or bleeding. LYMPHATIC: Denies swollen, painful, enlarged glands. NEUROLOGICAL: Denies no numbness or tingling denies weakness. Denies headache. Denies altered mental status. Denies alteration in speech. PSYCHIATRIC: Denies stress, anxiety, alteration in sleep patterns, or depression. All other systems reviewed and negative. Physical Exam - Vital signs Vitals: Temp Pulse Resp BP Pulse Ox 98.6 F 109 H 20 168/120 H 96 12/16/18 14:18 12/16/18 14:18 12/16/18 14:18 12/16/18 14:18 12/16/18 14:18 - Notes Notes: PHYSICAL EXAMINATION: GENERAL: Appears well, healthy, well-nourished, no acute distress. HEAD: Normocephalic, atraumatic. EYES: PERRL, conjunctiva normal, all extraocular movements intact, sclera nonicteric ENT: Moist mucous membranes. NECK: Supple, no noticeable swelling, redness, rash. Normal range of motion. LUNGS: Equal breath sounds bilaterally and clear to auscultation. No wheezes rales or rhonchi. CARDIOVASCULAR: S1-S2, regular rate, regular rhythm. Radial pulses 2+, normal. ABDOMEN: Normoactive bowel sounds. Soft, nontender, no guarding, no rebound tenderness, and no masses palpated. EXTREMITIES: Normal strength and range of motion, no pitting or edema. No cyanosis. NEUROLOGICAL: Moves all extremities upon command. Strength 5/5 in all extremities. PSYCH: Normal mood, normal affect. SKIN: Warm, dry. No rash, lesions, ulcerations noted. Normal skin turgor. Course - Re-evaluation Re-evalutation: 12/16/18 19:08 Patient's hematology shows a slightly low hemoglobin of 12.5 and hematocrit of 36.7. Chemistries are unremarkable. Troponin was negative. Patient most likely had a viral gastroenteritis, as the patient had nausea, vomiting, and diarrhea. Patient states that he feels better after receiving a DuoNeb treatment. Patient is nontoxic in appearance and his blood pressure is stable. Blood pressure is now 135/95. Very low suspicion for a pulmonary emboli, as the patient is on Xarelto and the patient is not tachycardic. I suspect that he was feeling the way he was feeling because of his vomiting and diarrhea from yesterday. At this time, I will send the patient home with Erin. He will follow-up with his primary care provider. He is in agreement with this plan. Follow-up precautions were given. Verbal discharge instructions were given to the patient. They verbalized understanding. They are stable for discharge. - Vital Signs Vital signs: Temp Pulse Resp BP Pulse Ox 98.4 F 109 H 12 135/95 H 99 12/16/18 16:25 12/16/18 14:18 12/16/18 19:01 12/16/18 19:01 12/16/18 19:01 - Laboratory Result Diagrams: 12/16/18 16:57 12/16/18 16:57 Laboratory results interpreted by me: 12/16/18 16:57 Hgb 12.5 L Hct 36.7 L RDW 15.4 H - EKG Interpretation by Me Additional EKG results interpreted by me: 12/16/18 17:09 Sinus rhythm. Rate 89. CT 156; QRS 82; and 364; 443. No ST elevations or depressions noted. No acute change from previous EKG done on 11/25/2018. Discharge - Discharge Clinical Impression: Nausea vomiting and diarrhea, Chest pressure, Gastroenteritis COPD (chronic obstructive pulmonary disease) Qualifiers: COPD type: unspecified COPD Qualified Code(s): J44.9 - Chronic obstructive pulmonary disease, unspecified Condition: Stable Disposition: HOME, SELF-CARE Additional Instructions: You were seen today in the emergency department for chest pressure, nausea, vomiting, and diarrhea. You most likely have a viral gastroenteritis. This will go away on its own. You are being sent home with nausea medication. Your labs, EKG, and chest x-ray were normal. Please follow-up with your primary care provider in regards to this visit. Prescriptions: Ondansetron [Zofran Odt 4 mg Tablet] 1 - 2 tab PO Q4H PRN #15 tab.rapdis PRN Reason: For Nausea/Vomiting Referrals: KAY BRUSH MD [Primary Care Provider] - Follow up in 3-5 days
[2018-12-16 17:14] LABS: ABSOLUTE BASOPHILS # (AUTO) 0.1 10^3/uL (0.0-0.2); ABSOLUTE EOSINOPHILS # (AUTO) 0.1 10^3/uL (0.0-0.6); ABSOLUTE LYMPHOCYTES (AUTO) 2.7 10^3/uL (0.5-4.7); ABSOLUTE MONOCYTES (AUTO) 1.1 10^3/uL (0.1-1.4); ABSOLUTE NEUT (AUTO) 6.2 10^3/uL (1.7-8.2); BASOPHILS % (AUTO) 0.8 % (0-2); HEMATOCRIT 36.7 % (37.9-51.0); HEMOGLOBIN 12.5 g/dL (13.5-17.0); LYMPHOCYTES % (AUTO) 26.3 % (13-45); MEAN CORPUSCULAR HEMOGLOBIN 28.1 pg (27.0-33.4); MEAN CORPUSCULAR HGB CONC 34.2 g/dL (32.0-36.0); MEAN CORPUSCULAR VOLUME 82 fl (80-97); MONOCYTES % (AUTO) 10.9 % (3-13); PLATELET COUNT 266 10^3/uL (150-450); RED BLOOD COUNT 4.47 10^6/uL (4.35-5.55); RED CELL DISTRIBUTION WIDTH 15.4 % (11.5-14.0); TOTAL CELLS COUNTED % (AUTO) 100 %; WHITE BLOOD COUNT 10.2 10^3/uL (4.0-10.5)
[2018-12-16] MEDS ORDERED: IPRATROPIUM/ALBUTEROL 0.5-2.5 MG/3 ML AMPUL NEB ONE (17:32)
[2018-12-16 17:37] LABS: ALBUMIN 3.8 g/dL (3.5-5.0); ALKALINE PHOSPHATASE 78 U/L (38-126); ANION GAP 9 (5-19); ASPARTATE AMINO TRANSFERASE 20 U/L (17-59); BILIRUBIN,DIRECT 0.1 mg/dL (0.0-0.4); BILIRUBIN,TOTAL 0.3 mg/dL (0.2-1.3); BLOOD UREA NITROGEN 10 mg/dL (7-20); CALCIUM 9.1 mg/dL (8.4-10.2); CARBON DIOXIDE 24 mmol/L (22-30); CHLORIDE 106 mmol/L (98-107); GLUCOSE 81 mg/dL (75-110); POTASSIUM 3.8 mmol/L (3.6-5.0); TOTAL PROTEIN 6.7 g/dL (6.3-8.2)
[2018-12-16 19:04] VITALS: BP 135/95
[2018-12-16] MEDS ORDERED: ONDANSETRON HCL INJ/PF 4 MG/2 ML SDV IV ONE (19:06)
--- NOTE | 2018-12-17 00:05 | EKG REPORT ---
SEVERITY:- OTHERWISE NORMAL ECG - SINUS RHYTHM LEFT AXIS DEVIATION : Confirmed by: Irene Lopez MD 17-Dec-2018 00:04:37
== END 2018-12-16 19:41 | disposition home or self-care (01) ==
LOC: ER 14:12
DX: K52.9 Noninfective gastroenteritis and colitis, unspecified (principal); R11.2 Nausea with vomiting, unspecified; R07.9 Chest pain, unspecified; J44.9 Chronic obstructive pulmonary disease, unspecified; I10 Essential (primary) hypertension; Z79.01 Long term (current) use of anticoagulants; Z99.81 Dependence on supplemental oxygen; Z87.891 Personal history of nicotine dependence
CPT/HCPCS: 93005; 94640; 99285; 96374; 36415; 85025; 80053; 84484; 71045; 93010; J2405; A9270; J7620

== ENCOUNTER 2019-01-10 08:12 | Emergency (ER) | payer MEDICARE, MEDICAID ==
--- NOTE | 2019-01-10 09:29 | ER Document Report ---
ED Dizziness/Weakness - General Chief Complaint: Dizziness Stated Complaint: DIZZINESS Time Seen by Provider: 01/10/19 08:47 Primary Care Provider: KAY BRUSH MD [Primary Care Provider] - Follow up in 3-5 days Mode of Arrival: Medic Information source: Patient, Emergency Med Personnel Notes: Patient presents stating that he is here for dizziness at this time. Patient states that he was up sometime before 7 this morning and took a pain pill and another medication although he is uncertain what medicine he took. Patient states that his comes home after working the third shift at 7 in the morning and gives him his usual morning medications. Patient states that he went to bed and started to feel dizzy sometime around 8 AM and got up to let his know that he was dizzy and states that he passed out onto the bed. Patient denies any injury. Patient states that he could have received the same medications as he is not certain what his gave him to take this morning. Patient denies any chest pain, headache, back pain, nausea or vomiting at this time. Patient denies any suicidal or ideation. Patient reports that he does have short-term memory problems and will frequently forget things. TRAVEL OUTSIDE OF THE [place] IN LAST 30 DAYS: No - HPI Patient complains to provider of: Dizziness Onset: This morning Onset/Duration: Gradual Quality of pain: No pain Pain Level: Denies Associated symptoms: Dizzy, Sleeping more. denies: Diarrhea, Nausea, Recent fall, Recent trauma, Vomiting Baseline gait: Walks w/o assistance - Related Data Allergies/Adverse Reactions: iodine [Iodine] Allergy (Intermediate, Verified 11/24/18 14:10) Blisters Shellfish * [Shellfish] Allergy (Intermediate, Verified 11/24/18 14:10) Blisters clonazepam [From Klonopin] Allergy (Verified 11/24/18 14:10) Blisters Home Medications: Esomeprezole, Fluoxetine, amlodipine, benztropine, gabapentin, buspirone, tamsulosin, fenofibrate, haloperidol, atorvastatin Past Medical History - General Information source: Patient - Social History Smoking Status: Current Every Day Smoker Frequency of alcohol use: None Drug Abuse: None Occupation: none Lives with: Spouse/Significant other Family History: CAD, COPD, Hypertension Patient has suicidal ideation: No Patient has homicidal ideation: No - Past Medical History Cardiac Medical History: Reports: Hx Hypercholesterolemia, Hx Hypertension Denies: Hx Coronary Artery Disease, Hx Heart Attack Pulmonary Medical History: Reports: Hx COPD - 2L NC at home, Hx Sleep Apnea Denies: Hx Asthma, Hx Bronchitis, Hx Pneumonia Neurological Medical History: Denies: Hx Cerebrovascular Accident, Hx Seizures Endocrine Medical History: Renal/ Medical History: Reports: Hx Renal Insufficiency. Denies: Hx Peritoneal Dialysis GI Medical History: Reports: Hx Gastroesophageal Reflux Disease Musculoskeletal Medical History: Denies Hx Arthritis, Reports Hx Musculoskeletal Deformity, Reports Hx Musculoskeletal Trauma Skin Medical History: Reports Hx Cellulitis, Reports Hx MRSA Psychiatric Medical History: Reports: Hx Bipolar Disorder, Hx Depression, Hx Schizophrenia Infectious Medical History: Reports: Hx MRSA Past Surgical History: Reports: Hx Cholecystectomy, Hx Oral Surgery, Hx Orthopedic Surgery - 11 back surgeries, with lower abdominal midline incision. - Immunizations Immunizations up to date: Yes Hx Diphtheria, Pertussis, Tetanus Vaccination: Yes Hx Pneumococcal Vaccination: 02/06/00 Review of Systems - Review of Systems Constitutional: No symptoms reported. denies: Fever, Recent illness EENT: No symptoms reported Cardiovascular: Dizziness. denies: Chest pain Respiratory: No symptoms reported. denies: Cough Gastrointestinal: No symptoms reported. denies: Abdominal pain, Nausea, Vomiting Genitourinary: No symptoms reported. denies: Dysuria Male Genitourinary: No symptoms reported Musculoskeletal: No symptoms reported. denies: Back pain, Neck pain Skin: No symptoms reported Hematologic/Lymphatic: No symptoms reported Neurological/Psychological: Other - Short-term memory problems Physical Exam - Vital signs Vitals: Temp Pulse Resp BP Pulse Ox 97.9 F 103 H 20 142/97 H 94 01/10/19 08:21 01/10/19 08:21 01/10/19 08:21 01/10/19 08:21 01/10/19 08:21 - General General appearance: Appears well, Alert In distress: None - HEENT Head: Normocephalic, Atraumatic Eyes: Normal Conjunctiva: Normal Pupils: PERRL Nasal: Normal Mouth/Lips: Normal Mucous membranes: Normal Pharynx: Normal Neck: Normal, Supple. No: Lymphadenopathy - Respiratory Respiratory status: No respiratory distress Chest status: Nontender Breath sounds: Normal. No: Rales, Rhonchi, Stridor, Wheezing Chest palpation: Normal - Cardiovascular Rhythm: Regular Heart sounds: S1 appreciated, S2 appreciated Murmur: No - Abdominal Inspection: Normal, Obese Distension: No distension Bowel sounds: Normal Tenderness: Nontender Organomegaly: No organomegaly - Back Back: Normal, Nontender. No: CVA tenderness - Extremities General upper extremity: Normal inspection, Nontender, Normal ROM General lower extremity: Normal inspection, Nontender, Normal ROM - Neurological Neuro grossly intact: Yes Cognition: Other - Occasionally forgetful with details of HPI [place] Coma Scale Eye Opening: Spontaneous [place] Coma Scale Verbal: Oriented [place] Coma Scale Motor: Obeys Commands [place] Coma Scale Total: 15 - Psychological Associated symptoms: Normal affect, Normal mood - Skin Skin Temperature: Warm Skin Moisture: Dry Skin Color: Normal Course - Re-evaluation Re-evalutation: 01/10/19 09:28 After speaking with the nurse who checked patient in, nurse states that he was told that the called EMS due to patient having altered mental status. Nurse states that once EMS arrived patient was awake oriented x4. Nurse states that patient has a history of frequent episodes of altered mental status without any acute findings. Consult with Dr. Iniguez regarding patient presentation and diagnostic evaluation. Agrees with plan work-up at this time, no imaging recommended for head at this time. 01/10/19 10:45 Patient sleeping, oxygen sat is 84% at this time. Patient did acknowledge a history of sleep apnea and COPD. 01/10/19 11:55 Patient sleeping, arouses easily to voice, oxygen saturation 92% at this time. 01/10/19 12:36 Nurse states that patient had gotten confused and was in the hallway stating he did not know why he was here. Provider to bedside. Patient sitting there awake alert and oriented. Patient states he is not confused he just does not understand why he is still a patient at this hospital. Patient states that he knows he is at [facility] in room 5 and he wants to know why he has not been discharged home as he has things he needs to do at home. Patient not on any oxygen at this time and oxygen saturation 95% on room air. No tachypnea or tachycardia. 01/10/19 13:17 Patient acknowledges that he does have some short-term memory issues and that he feels as though his spouse plays on these. Patient is wanting to be discharged at this time. Patient advised that we are awaiting an additional blood test and then consultation with his primary doctor. Patient is agreeable with waiting for this to result at this time. Patient's oxygen saturation maintains at 95%. Patient is on room air. Patient states that he does have oxygen at home that he can use. 01/10/19 13:[address] Brush regarding patient presentation and diagnostic evaluation. Dr. Brush is very familiar with patient states that he does have a history of some dementia and memory issues and does have a history of needing oxygen at home for which he does have. Agrees with plan for discharge and advises having patient follow-up with him in the office next week. - Vital Signs Vital signs: Temp Pulse Resp BP Pulse Ox 98.1 F 91 16 135/73 H 92 01/10/19 14:35 01/10/19 14:35 01/10/19 14:35 01/10/19 14:35 01/10/19 14:35 - Laboratory Result Diagrams: 01/10/19 11:49 01/10/19 11:49 Laboratory results interpreted by me: 01/10/19 01/10/19 11:49 11:49 Hgb 12.7 L RDW 16.3 H Chloride 108 H Salicylates < 1.0 L Acetaminophen < 10 L Labs- Entire Visit 01/10/19 01/10/19 01/10/19 08:25 08:25 11:49 WBC 7.3 RBC 4.59 Hgb 12.7 L Hct 37.9 MCV 83 MCH 27.6 MCHC 33.4 RDW 16.3 H Plt Count 245 Lymph % (Auto) 31.0 [place] % (Auto) 11.3 Eos % (Auto) 0.7 Baso % (Auto) 0.6 Absolute Neuts (auto) 4.1 Absolute Lymphs (auto) 2.3 Absolute Monos (auto) 0.8 Absolute Eos (auto) 0.1 Absolute Basos (auto) 0.0 Seg Neutrophils % 56.4 D-Dimer Sodium Potassium Chloride Carbon Dioxide Anion Gap BUN Creatinine Est GFR ( Amer) Est GFR (MDRD) Non-Af Glucose Calcium Total Bilirubin Direct Bilirubin Neonat Total Bilirubin Neonat Direct Bilirubin Neonat Indirect Bili AST ALT Alkaline Phosphatase Creatine Kinase CK-MB (CK-2) Troponin I Total Protein Albumin Urine Color YELLOW Urine Appearance CLEAR Urine pH 6.0 Ur Specific [place] 1.009 Urine Protein NEGATIVE Urine Glucose (UA) NEGATIVE Urine Ketones NEGATIVE Urine Blood NEGATIVE Urine Nitrite NEGATIVE Urine Bilirubin NEGATIVE Urine Urobilinogen NEGATIVE Ur Leukocyte Esterase NEGATIVE Urine WBC (Auto) 0 Urine RBC (Auto) 0 U Hyaline Cast (Auto) 3 Urine Mucus (Auto) RARE Urine Ascorbic Acid NEGATIVE Salicylates Urine Opiates Screen UNCONFIRMED POSITIVE Urine Methadone Screen NEGATIVE Acetaminophen Ur Barbiturates Screen NEGATIVE Ur Phencyclidine Scrn NEGATIVE Ur Amphetamines Screen NEGATIVE U Benzodiazepines Scrn NEGATIVE Urine Cocaine Screen NEGATIVE U Marijuana (THC) Screen NEGATIVE Serum Alcohol 01/10/19 01/10/19 01/10/19 11:49 11:49 11:49 WBC RBC Hgb Hct MCV MCH MCHC RDW Plt Count Lymph % (Auto) [place] % (Auto) Eos % (Auto) Baso % (Auto) Absolute Neuts (auto) Absolute Lymphs (auto) Absolute Monos (auto) Absolute Eos (auto) Absolute Basos (auto) Seg Neutrophils % D-Dimer < 0.27 Sodium 141.6 Potassium 4.2 Chloride 108 H Carbon Dioxide 26 Anion Gap 8 BUN 11 Creatinine 0.86 Est GFR ( Amer) > 60 Est GFR (MDRD) Non-Af > 60 Glucose 103 Calcium 9.1 Total Bilirubin 0.4 Direct Bilirubin 0.1 Neonat Total Bilirubin Not Reportable Neonat Direct Bilirubin Not Reportable Neonat Indirect Bili Not Reportable AST 26 ALT 25 Alkaline Phosphatase 70 Creatine Kinase 118 CK-MB (CK-2) 1.69 Troponin I < 0.012 Total Protein 6.7 Albumin 4.0 Urine Color Urine Appearance Urine pH Ur Specific [place] Urine Protein Urine Glucose (UA) Urine Ketones Urine Blood Urine Nitrite Urine Bilirubin Urine Urobilinogen Ur Leukocyte Esterase Urine WBC (Auto) Urine RBC (Auto) U Hyaline Cast (Auto) Urine Mucus (Auto) Urine Ascorbic Acid Salicylates < 1.0 L Urine Opiates Screen Urine Methadone Screen Acetaminophen < 10 L Ur Barbiturates Screen Ur Phencyclidine Scrn Ur Amphetamines Screen U Benzodiazepines Scrn Urine Cocaine Screen U Marijuana (THC) Screen Serum Alcohol < 10 - Diagnostic Test Radiology reviewed: Reports reviewed - EKG Interpretation by Me EKG shows normal: Sinus rhythm Additional EKG results interpreted by me: 01/10/19 13:[address] elevation, QTc 483 Discharge - Discharge Clinical Impression: Dizziness, Polypharmacy, Smoker Condition: Stable Disposition: HOME, SELF-CARE Instructions: Dizziness ([facility]) Additional Instructions: Return immediately for any new or worsening symptoms Followup with your primary care provider, call tomorrow to make a followup appointment You should be certain that you are not taking than your prescribed dose of your medications. You and your partner should identify which medications you have in which ones you need to take at what time to avoid potential overmedication. You should wear your oxygen that you have at home when you sleep. Follow-up with Dr. Brush, call his office today to make a follow-up appointment for next week. Referrals: KAY BRUSH MD [Primary Care Provider] - Follow up in 3-5 days
[2019-01-10 09:37] LABS: APPEARANCE,URINE CLEAR; BILIRUBIN,URINE NEGATIVE (NEGATIVE); COLOR,URINE YELLOW; GLUCOSE, URINE NEGATIVE (NEGATIVE); KETONES,URINE NEGATIVE (NEGATIVE); LEUKOCYTE ESTERASE,URINE NEGATIVE (NEGATIVE); NITRITE,URINE NEGATIVE (NEGATIVE); PROTEIN,URINE NEGATIVE (NEGATIVE); URINE SPECIFIC GRAVITY 1.009; UROBILINOGEN,URINE NEGATIVE mg/dL (<2.0)
--- NOTE | 2019-01-10 09:57 | RADIOLOGY REPORT (SQ) ---
EXAM DESCRIPTION: CHEST 2 VIEWS COMPLETED DATE/TIME: 01/10/2019 9:46 am REASON FOR STUDY: dizziness COMPARISON: 12/16/2018 EXAM PARAMETERS: NUMBER OF VIEWS: two views TECHNIQUE: Digital Frontal and Lateral radiographic views of the chest acquired. RADIATION DOSE: NA LIMITATIONS: none FINDINGS: LUNGS AND PLEURA: No opacities, masses or pneumothorax. No pleural effusion. Increased AP diameter. MEDIASTINUM AND HILAR STRUCTURES: No masses or contour abnormalities. HEART AND VASCULAR STRUCTURES: Heart normal size. No evidence for failure. BONES: No acute findings. HARDWARE: None in the chest. OTHER: No other significant finding. IMPRESSION: No evidence of acute cardiopulmonary process. TECHNICAL DOCUMENTATION: JOB ID: [id number] [employer]- All Rights Reserved Reading location - IP/workstation name: [email or web address]
[2019-01-10 12:05] LABS: ABSOLUTE EOSINOPHILS # (AUTO) 0.1 10^3/uL (0.0-0.6); ABSOLUTE LYMPHOCYTES (AUTO) 2.3 10^3/uL (0.5-4.7); ABSOLUTE MONOCYTES (AUTO) 0.8 10^3/uL (0.1-1.4); ABSOLUTE NEUT (AUTO) 4.1 10^3/uL (1.7-8.2); BASOPHILS % (AUTO) 0.6 % (0-2); EOSINOPHILS % (AUTO) 0.7 % (0-6); HEMATOCRIT 37.9 % (37.9-51.0); HEMOGLOBIN 12.7 g/dL (13.5-17.0); MEAN CORPUSCULAR HEMOGLOBIN 27.6 pg (27.0-33.4); MEAN CORPUSCULAR HGB CONC 33.4 g/dL (32.0-36.0); MEAN CORPUSCULAR VOLUME 83 fl (80-97); MONOCYTES % (AUTO) 11.3 % (3-13); PLATELET COUNT 245 10^3/uL (150-450); RED BLOOD COUNT 4.59 10^6/uL (4.35-5.55); RED CELL DISTRIBUTION WIDTH 16.3 % (11.5-14.0); SEGMENTED NEUTROPHILS % (AUTO) 56.4 % (42-78); TOTAL CELLS COUNTED % (AUTO) 100 %; WHITE BLOOD COUNT 7.3 10^3/uL (4.0-10.5)
[2019-01-10 12:29] LABS: ALKALINE PHOSPHATASE 70 U/L (38-126); ANION GAP 8 (5-19); ASPARTATE AMINO TRANSFERASE 26 U/L (17-59); BILIRUBIN,DIRECT 0.1 mg/dL (0.0-0.4); BILIRUBIN,TOTAL 0.4 mg/dL (0.2-1.3); BLOOD UREA NITROGEN 11 mg/dL (7-20); CALCIUM 9.1 mg/dL (8.4-10.2); CARBON DIOXIDE 26 mmol/L (22-30); CHLORIDE 108 mmol/L (98-107); CREATINE KINASE 118 U/L (55-170); GLUCOSE 103 mg/dL (75-110); POTASSIUM 4.2 mmol/L (3.6-5.0); TOTAL PROTEIN 6.7 g/dL (6.3-8.2)
[2019-01-10 12:30] LABS: ACETAMINOPHEN < 10 ug/mL (10-30); ALCOHOL < 10 mg/dL (NONE DETECTED); SALICYLATE < 1.0 mg/dL (2.0-20.0)
[2019-01-10 12:38] LABS: CREATINE KINASE MB 1.69 ng/mL (<4.55)
[2019-01-10 12:40] LABS: TROPONIN I < 0.012 ng/mL
--- NOTE | 2019-01-10 13:00 | EKG REPORT ---
SEVERITY:- ABNORMAL ECG - SINUS RHYTHM LEFT ATRIAL ABNORMALITY PROBABLE INFERIOR INFARCT, AGE INDETERMINATE BORDERLINE PROLONGED QT INTERVAL : Confirmed by: Irene Lopez MD 10-Jan-2019 13:00:16
[2019-01-10 13:11] LABS: URINE AMPHETAMINES SCREEN NEGATIVE; URINE BARBITURATES SCREEN NEGATIVE; URINE BENZODIAZEPINES SCREEN NEGATIVE; URINE COCAINE SCREEN NEGATIVE; URINE MARIJUANA (THC) SCREEN NEGATIVE; URINE METHADONE SCREEN NEGATIVE; URINE PHENCYCLIDINE SCREEN NEGATIVE
[2019-01-10 14:34] VITALS: BP 135/73
== END 2019-01-10 14:35 | disposition home or self-care (01) ==
LOC: ER 08:12
DX: R42 Dizziness and giddiness (principal); F17.200 Nicotine dependence, unspecified, uncomplicated; E78.00 Pure hypercholesterolemia, unspecified; I10 Essential (primary) hypertension; J44.9 Chronic obstructive pulmonary disease, unspecified; Z86.14 Personal history of Methicillin resistant Staphylococcus aureus infection
CPT/HCPCS: 36415; 71046; 80053; 80307; 81001; 82550; 82553; 84484; 85025; 85379; 93005; 93010; 99284

== ENCOUNTER 2019-08-14 20:11 | Inpatient (IN) | payer MEDICARE, MEDICAID ==
[2019-08-14 20:41] LABS: ABSOLUTE EOSINOPHILS # (AUTO) 0.1 10^3/uL (0.0-0.6); ABSOLUTE LYMPHOCYTES (AUTO) 2.1 10^3/uL (0.5-4.7); ABSOLUTE MONOCYTES (AUTO) 0.7 10^3/uL (0.1-1.4); ABSOLUTE NEUT (AUTO) 5.4 10^3/uL (1.7-8.2); BASOPHILS % (AUTO) 0.3 % (0-2); EOSINOPHILS % (AUTO) 1.2 % (0-6); HEMATOCRIT 48.6 % (37.9-51.0); HEMOGLOBIN 16.2 g/dL (13.5-17.0); LYMPHOCYTES % (AUTO) 24.9 % (13-45); MEAN CORPUSCULAR HEMOGLOBIN 27.7 pg (27.0-33.4); MEAN CORPUSCULAR HGB CONC 33.3 g/dL (32.0-36.0); MEAN CORPUSCULAR VOLUME 83 fl (80-97); MONOCYTES % (AUTO) 8.9 % (3-13); PLATELET COUNT 262 10^3/uL (150-450); RED BLOOD COUNT 5.84 10^6/uL (4.35-5.55); RED CELL DISTRIBUTION WIDTH 15.5 % (11.5-14.0); SEGMENTED NEUTROPHILS % (AUTO) 64.7 % (42-78); TOTAL CELLS COUNTED % (AUTO) 100 %; WHITE BLOOD COUNT 8.4 10^3/uL (4.0-10.5)
[2019-08-14 20:42] LABS: ARTERIAL BLOOD BASE EXCESS -4.4 mmol/L; ARTERIAL BLOOD H2CO3 1.72 mmol/L (1.05-1.35); ARTERIAL BLOOD O2 SATURATION 93.7 % (94-98); ARTERIAL BLOOD PH 7.24 (7.35-7.45); ARTERIAL BLOOD PO2 80.1 mmHg (80-100); ARTERIAL BLOOD TOTAL CO2 25.8 mmol/L (23-27)
[2019-08-14 20:43] LABS: ARTERIAL BLOOD FIO2 100%
[2019-08-14 20:44] LABS: APPEARANCE,URINE CLEAR; BILIRUBIN,URINE NEGATIVE (NEGATIVE); COLOR,URINE STRAW; GLUCOSE, URINE NEGATIVE (NEGATIVE); KETONES,URINE NEGATIVE (NEGATIVE); LEUKOCYTE ESTERASE,URINE NEGATIVE (NEGATIVE); NITRITE,URINE NEGATIVE (NEGATIVE); PROTEIN,URINE NEGATIVE (NEGATIVE); URINE SPECIFIC GRAVITY 1.002; UROBILINOGEN,URINE NEGATIVE mg/dL (<2.0)
[2019-08-14 20:49] LABS: INTERNATIONAL RATION (INR) 1.04; PROTHROMBIN TIME 13.6 SEC (11.4-15.4)
[2019-08-14 20:58] LABS: URINE AMPHETAMINES SCREEN NEGATIVE; URINE BARBITURATES SCREEN NEGATIVE; URINE BENZODIAZEPINES SCREEN NEGATIVE; URINE COCAINE SCREEN NEGATIVE; URINE MARIJUANA (THC) SCREEN NEGATIVE; URINE METHADONE SCREEN NEGATIVE; URINE PHENCYCLIDINE SCREEN NEGATIVE
[2019-08-14 20:59] LABS: ACETAMINOPHEN < 10 ug/mL (10-30); ALBUMIN 4.6 g/dL (3.5-5.0); ALCOHOL < 10 mg/dL (NONE DETECTED); ALKALINE PHOSPHATASE 80 U/L (38-126); ANION GAP 9 (5-19); ASPARTATE AMINO TRANSFERASE 51 U/L (17-59); BILIRUBIN,DIRECT 0.1 mg/dL (0.0-0.4); BILIRUBIN,TOTAL 0.6 mg/dL (0.2-1.3); BLOOD UREA NITROGEN 16 mg/dL (7-20); CALCIUM 9.4 mg/dL (8.4-10.2); CARBON DIOXIDE 26 mmol/L (22-30); CHLORIDE 108 mmol/L (98-107); CREATINE KINASE 533 U/L (55-170); GLUCOSE 143 mg/dL (75-110); POTASSIUM 3.9 mmol/L (3.6-5.0); SALICYLATE < 1.0 mg/dL (2.0-20.0); TOTAL PROTEIN 7.7 g/dL (6.3-8.2)
--- NOTE | 2019-08-14 21:00 | ER Document Report ---
ED General - General Stated Complaint: UNRESPONSIVE Primary Care Provider: KAY BRUSH MD [Primary Care Provider] - Follow up as needed Cannot obtain history due to: Intubated, Altered mental status Notes: Patient is a 44-year-old male presenting to the emergency department via EMS chief complaint of being found unresponsive. Last known well was 3 AM by a roommate. When the roommate went to check on him later on this afternoon/this evening was found to be unresponsive and breathing shallowly. EMS states that when they presented to the house patient was breathing approximately 8 times a minute and was foaming at the mouth. Decision was made to electively intubate to protect the patient's airway. At time of presentation patient has no response to noxious stimuli. Is being ventilated by bag valve mask. Prior medical history was unknown at time of presentation however review of medical records demonstrates: Cardiac Medical History: Reports: Hx Hypercholesterolemia, Hx Hypertension Denies: Hx Coronary Artery Disease, Hx Heart Attack Pulmonary Medical History: Reports: Hx COPD - 2L NC at home, Hx Sleep Apnea Denies: Hx Asthma, Hx Bronchitis, Hx Pneumonia Neurological Medical History: Denies: Hx Cerebrovascular Accident, Hx Seizures Endocrine Medical History: Renal/ Medical History: Reports: Hx Renal Insufficiency. Denies: Hx Peritoneal Dialysis GI Medical History: Reports: Hx Gastroesophageal Reflux Disease Musculoskeletal Medical History: Denies Hx Arthritis, Reports Hx Musculoskeletal Deformity, Reports Hx Musculoskeletal Trauma Skin Medical History: Reports Hx Cellulitis, Reports Hx MRSA Psychiatric Medical History: Reports: Hx Bipolar Disorder, Hx Depression, Hx Schizophrenia Infectious Medical History: Reports: Hx MRSA Past Surgical History: Reports: Hx Cholecystectomy, Hx Oral Surgery, Hx Orthopedic Surgery - 11 back surgeries, with lower abdominal midline incision. TRAVEL OUTSIDE OF THE [place] IN LAST 30 DAYS: No - HPI Onset: Other - unknown Onset/Duration: Persistent Quality of pain: No pain Severity: None Pain Level: 0 Associated symptoms: Shortness of breath Exacerbated by: Denies Relieved by: Denies Similar symptoms previously: No Recently seen / treated by doctor: No - Related Data Allergies/Adverse Reactions: iodine [Iodine] Allergy (Intermediate, Verified 11/24/18 14:10) Blisters Shellfish * [Shellfish] Allergy (Intermediate, Verified 11/24/18 14:10) Blisters clonazepam [From Klonopin] Allergy (Verified 11/24/18 14:10) Blisters Past Medical History - General Information source: [facility] Records Cannot obtain history due to: Intubated, Altered mental status - Social History Smoking Status: Unknown if Ever Smoked Lives with: Friend Family History: CAD, COPD, Hypertension Patient has suicidal ideation: No Patient has homicidal ideation: No - Past Medical History Cardiac Medical History: Reports: Hx Hypercholesterolemia, Hx Hypertension Denies: Hx Coronary Artery Disease, Hx Heart Attack Pulmonary Medical History: Reports: Hx COPD - 2L NC at home, Hx Sleep Apnea Denies: Hx Asthma, Hx Bronchitis, Hx Pneumonia Neurological Medical History: Denies: Hx Cerebrovascular Accident, Hx Seizures Endocrine Medical History: Renal/ Medical History: Reports: Hx Renal Insufficiency. Denies: Hx Peritoneal Dialysis GI Medical History: Reports: Hx Gastroesophageal Reflux Disease Musculoskeletal Medical History: Denies Hx Arthritis, Reports Hx Musculoskeletal Deformity, Reports Hx Musculoskeletal Trauma Skin Medical History: Reports Hx Cellulitis, Reports Hx MRSA Psychiatric Medical History: Reports: Hx Bipolar Disorder, Hx Depression, Hx Schizophrenia Infectious Medical History: Reports: Hx MRSA Past Surgical History: Reports: Hx Cholecystectomy, Hx Oral Surgery, Hx Orthopedic Surgery - 11 back surgeries, with lower abdominal midline incision. - Immunizations Immunizations up to date: Yes Hx Diphtheria, Pertussis, Tetanus Vaccination: Yes Hx Pneumococcal Vaccination: 02/06/00 Review of Systems - Review of Systems -: Yes ROS unobtainable due to patient's medical condition Physical Exam - Vital signs Vitals: Temp Resp Pulse Ox 96.3 F L 19 94 08/14/19 20:13 08/14/19 20:13 08/14/19 20:13 - Notes Notes: PHYSICAL EXAMINATION: GENERAL: Patient is a 44-year-old male currently sedated secondary to respirat ory distress. HEAD: Atraumatic, normocephalic. EYES: Pupils equal round approximately 5 mm and nonreactive, sclera anicteric, conjunctiva are markedly injected ENT: endotracheal tube in place dry mucous membranes NECK: Supple without lymphadenopathy, no appreciable JVD LUNGS: Lungs clear to auscultation bilaterally and equal. No wheezes rales or rhonchi. Ventilated per BVM initially transferred to a vent. HEART: Tachycardic rate and rhythm without murmurs ABDOMEN: Soft, obese nontender, absent bowel sounds. No masses appreciated. EXTREMITIES: Active full range of motion, no pitting or edema. No cyanosis. 2+ pulses x4 NEUROLOGICAL: Sedated no response to noxious stimuli SKIN: Warm, Dry, and intact. Normal turgor, no rashes or lesions noted. Course - Re-evaluation Re-evalutation: 08/14/19 21:07 Patient continues on ventilator no signs of neurologic response at this time. No need for medications for sedation. 08/14/19 23:30 Patient did start to have some spontaneous purposeful movements and thus was started on a mild propofol drip. Patient is receiving IV fluids. I have checked the chest x-ray as well as CT of brain tubes are in correct placement there is no signs of acute intracranial pathology or pneumonia on chest x-ray. Patient has been maintained on a playground monitor has been reevaluated several times by myself as well as nursing staff. At this time I feel patient needs to be admitted for further evaluation and management. I have spoken to the ICU physicians assistants and he is agreeable with admission. No family has presented for the patient that I have been made aware of so no further information has obtained. 08/14/19 23:32 Out of an abundance of caution patient has been COVID-19 tested. - Vital Signs Vital signs: Temp Pulse Resp BP Pulse Ox 96.5 F L 18 113/80 96 08/14/19 23:20 08/14/19 23:20 08/14/19 23:20 08/14/19 23:20 - Laboratory Result Diagrams: 08/14/19 20:16 08/14/19 20:16 Laboratory results interpreted by me: 08/14/19 08/14/19 08/14/19 20:16 20:16 20:16 RBC 5.84 H RDW 15.5 H Carbonic Acid ABG pH ABG pCO2 ABG O2 Saturation Chloride 108 H Glucose 143 H ALT 51 H Creatine Kinase 533 H NT-Pro-B Natriuret Pep 154 H Lipase 459.2 H Salicylates < 1.0 L Acetaminophen < 10 L 08/14/19 20:25 RBC RDW Carbonic Acid 1.72 H ABG pH 7.24 L ABG pCO2 57.0 H ABG O2 Saturation 93.7 L Chloride Glucose ALT Creatine Kinase NT-Pro-B Natriuret Pep Lipase Salicylates Acetaminophen - Diagnostic Test Radiology reviewed: Image reviewed - EKG Interpretation by Me EKG shows normal: Sinus rhythm Rate: Tachycardia [place]/QRS: LAHB/LAFB When compared to previous EKG there are: Previous EKG unavailable Critical Care Note - Critical Care Note Total time excluding time spent on procedures (mins): 40 Comments: Please allow 40 minutes of critical care time spent obtaining history from patient or surrogate, discussions with consultants, development of treatment plan with patient or surrogate, evaluation of patient's response to treatment, examination of patient. This also includes ordering and reviewing laboratory, EKG and / or radiologic studies, performing and reassessing treatments and interventions as well as reviewing previous visits and old charts. This is exclusive of separately billable procedures. Discharge - Discharge Clinical Impression: Respiratory distress Altered mental status Qualifiers: Altered mental status type: coma Coma depth: [place] coma 3-8 Coma timing: in the field (EMT or ambulance) Qualified Code(s): R40.2431 - [place] coma scale score 3-8, in the field [EMT or ambulance] Condition: Serious Disposition: ADMITTED INPATIENT Admitting Provider: Eliazar (Associate Professor Physician) Unit Admitted: ICU Referrals: KAY BRUSH MD [Primary Care Provider] - Follow up as needed
--- NOTE | 2019-08-14 21:02 | EKG REPORT ---
SEVERITY:- DEFECTIVE ECG - SINUS TACHYCARDIA LEFT ANTERIOR FASCICULAR BLOCK PROLONGED QT INTERVAL DEFECTIVE EKG LEAD - V2. : Confirmed by: Fernando Biggs MD 14-Aug-2019 21:01:31
--- NOTE | 2019-08-14 21:11 | RADIOLOGY REPORT (SQ) ---
EXAM DESCRIPTION: XR CHEST 1 VIEW COMPLETED DATE/TME: 08/14/2019 20:20 CLINICAL HISTORY: 44 years, Male, sob COMPARISON: January 10, 2019 NUMBER OF VIEWS: 1 TECHNIQUE: Portable AP supine examination of the chest was performed on 2 images around 8:41 PM. LIMITATIONS: None. FINDINGS: Endotracheal tube terminates 2.5 cm above the eva. Nasogastric tube terminates in the region of the proximal stomach. Mild cardiac enlargement and central vascular congestion are noted. There is mild basilar atelectasis. There is no evidence of pleural effusion or pneumothorax. IMPRESSION: 1. Proper ETT and NGT placement. 2. Cardiac enlargement and central vascular congestion. There is also mild bibasilar atelectasis. copyright 2010 [employer]- All Rights Reserved
[2019-08-14 21:13] LABS: CREATINE KINASE MB 4.25 ng/mL (<4.55); NT PRO BNP 154 pg/mL (<125); TROPONIN I < 0.012 ng/mL
[2019-08-14] MEDS: PROPOFOL 1,000 MG/100 ML INFUS..BTL IV PRN (22:07)
--- NOTE | 2019-08-14 23:08 | RADIOLOGY REPORT (SQ) ---
EXAM DESCRIPTION: CT HEAD WITHOUT IV CONTRAST COMPLETED DATE/TME: 08/14/2019 20:20 CLINICAL HISTORY: unresponsive, sob. COMPARISON: 11/24/2018 TECHNIQUE: Axial CT of the head obtained from the skull apex to the skull base without contrast. FINDINGS: No acute intracranial hemorrhage identified. No mass, mass effect, shift of the midline, abnormal extra-axial fluid collection or CT evidence of acute ischemic change identified. The ventricular system is unremarkable. No acute abnormalities of the supratentorial white matter, basal ganglia, cerebellum, or brainstem. Opacities in the paranasal sinuses. Mastoid air cells are well aerated. No skull fracture identified. Visualized orbits and globes are unremarkable. Partial visualization of endotracheal and NG tube. IMPRESSION: 1. No acute intracranial abnormality identified. This exam was performed according to our departmental dose-optimization program, which includes automated exposure control, adjustment of the mA and/or kV according to patient size and/or use of iterative reconstruction technique.
[2019-08-14] MEDS ORDERED: AMPICILLIN SOD/SULBACTAM 3 GM VIAL IV ONE (23:57)
[2019-08-15 03:15] LABS: ARTERIAL BLOOD BASE EXCESS -0.3 mmol/L; ARTERIAL BLOOD H2CO3 1.47 mmol/L (1.05-1.35); ARTERIAL BLOOD O2 SATURATION 99.5 % (94-98); ARTERIAL BLOOD PCO2 48.7 mmHg (35-45); ARTERIAL BLOOD PH 7.35 (7.35-7.45); ARTERIAL BLOOD PO2 245.5 mmHg (80-100); ARTERIAL BLOOD TOTAL CO2 27.5 mmol/L (23-27)
[2019-08-15 03:16] LABS: ARTERIAL BLOOD FIO2 100%
--- NOTE | 2019-08-15 03:37 | CRITICAL CARE ADMISSION REPORT ---
HPI Date:: 08/15/19 Time:: 02:10 Reason for ICU Reason:: Acute respiratory failure Admission Date/Time & PCP: Admission Date/Time: 08/15/19 00:04 Primary Care Provider: KAY BRUSH MD HPI: 44-year-old male with an extensive medical and psychiatric history including multiple spinal surgeries with opioid dependence and multiple episodes of respiratory failure over the past several years. In November 2018 he was admitted to this ICU with MRSA and Klebsiella pneumonia and was also found to have a high probability of PE on VQ scan. Yesterday morning, he was found unresponsive by his roommate with shallow breathing. He was intubated by EMS and brought to our emergency department. A head CT was performed which was negative for any acute event. Patient is being admitted to the intensive care unit for acute respiratory failure of unknown etiology. Differential diagnosis includes pneumonia, recurrent PE and opioid overdose. Patient is unable to have IV contrast due to iodine allergy. History obtained from:: Medical record - Diagnosis/Plan (1) Acute respiratory failure Qualifiers: Respiratory failure complication: hypoxia Qualified Code(s): J96.01 - Acute respiratory failure with hypoxia Is this a current diagnosis for this admission?: Yes Plan: Please see below for details. Continue mechanical ventilation, start broad-spectrum antibiotics for recurrent pneumonia and possible aspiration. Differential diagnosis includes pulmonary embolism. D-dimers are negative however. Prolonged hypoxemia and no evidence of pneumonia on CXR, we will obtain an echocardiogram as well as VQ scan. Plan Summary: ICU day of admission: Neuro: Patient responds to discomfort. He has been on a propofol drip due to asynchrony of ventilator in the emergency department. Plan: Wean sedation as tolerated. Pain management/sedation: As per history, patient has a prolonged history of narcotic use secondary to chronic back pain with a history of multiple spinal surgeries. His urine tox screen however shows no opioids. We will attempt to lighten his sedation to encourage spontaneous breathing and ventilator weaning trials. Continue to assess pain level and treat accordingly. Pulmonary: Patient has an extensive pulmonary history. Spirometry in November of 2018 shows a restrictive pattern. MRSA and Klebsiella pneumonia in November 2018, hypoxemic respiratory failure secondary to pneumonia in 2016 and 2017. Also diagnosed with PE in November 2018. Patient is intubated. 7.5 ETT, 26 cm at the lip, vent settings: Volume control, VT 500, RR 16, PEEP 5, FiO2 100%. SPO2 100%. Bilateral breath sounds are clear. CXR shows no significant infiltrates. Plan: ABG pending. Adjust vent settings accordingly. Will consider increasing tidal volume to match his frame size. CXR in a.m. Wean FiO2 to maintain SPO2 90 to 95%. If persistent signs of hypoxemia, we will consider repeating a VQ scan to evaluate for PE. Currently his d-dimer is not elevated. Unable to perform chest CT due to iodine allergy. Patient has an extensive smoking history of greater than 30 years, however, no obstructive component seen on recent spirometry. Cardiovascular: Patient has a history of hypertension and hypercholesterolemia. He is hemodynamically stable with normal rate and rhythm. No murmurs appreciated. Plan: Monitor hemodynamics. Continuous telemetry. Indwelling catheters: Peripheral IVs only. DVT prophylaxis: Patient with history of upper extremity DVT as well as PE. Start DVT prophylaxis with heparin. If evidence of PE, we will start a heparin drip. Renal: Patient does have a history of acute renal injury several years ago due to hypovolemia attributed to cholecystitis, nausea vomiting and anorexia. BUN and creatinine are within normal limits so far during this admission. Plan: Start LR at 100 mL/h. Monitor renal panel in a.m. Gastrointestinal: History of GERD and cholecystitis status post cholecystectomy. NG tube currently to suction with a moderate amount of output. Plan: GI prophylaxis: We will start PPI given his history of GERD and intubation status. Diet: Keep n.p.o. overnight. We will reassess his nutrition needs over the next 24 hours. : History of BPH. Continue home medications. ID: Blood culture sent. Obtain sputum cultures. Start on broad-spectrum antibiotics given patient's history of community-acquired pneumonia as well as more recent MRSA/Klebsiella pneumonia. Possible risk of aspiration given patient's presentation. Follow-up CXR in a.m. Follow fever curve. We will treat fevers greater than 102F with Tylenol as needed. Past Medical History Cardiac Medical History: Reports: Hyperlipidema, Hypertension Denies: Coronary Artery Disease, Myocardial Infarction Pulmonary Medical History: Reports: Pneumonia, Sleep Apnea Denies: Asthma, Bronchitis Pulmonary History Note: Patient has extensive smoking history, however recent spirometry shows no obstructive pattern. Neurological Medical History: Denies: Seizures Endocrine Medical History: Renal/ History Note: BPH GI Medical History: Reports: Gastroesophageal Reflux Disease Musculoskeltal Medical History: Denies: Arthritis Psychiatric Medical History: Reports: Bipolar Disorder, Depression Hematology: Denies: Anemia Infectious Medical History: Reports: Methicillin-Resistant Staph Aureus Infectious History Note: Also with history of Klebsiella pneumonia. Remote history of prolonged lower extremity cellulitis. Past Surgical History Past Surgical History: Reports: Cholecystectomy, Orthopedic Surgery - 11 back surgeries, with lower abdominal midline incision., Other - Multiple spinal surgeries. Social/Family History - Social History Lives with: Friend Smoking Status: Current Every Day Smoker Hx Recreational Drug Use: Yes Drugs: Marijuana Hx Prescription Drug Abuse: Yes - Medication/Allergies Home Medications: Enalapril Maleate [Vasotec 10 mg Tablet] 10 mg PO DAILY 11/25/18 Ondansetron HCl [Zofran 4 mg Tablet] 4 mg PO Q8HP PRN 11/25/18 Amlodipine Besylate [Norvasc 2.5 mg Tablet] 2.5 mg PO Q12 11/30/18 Atorvastatin Calcium [Lipitor 20 mg Tablet] 20 mg PO QHS 11/30/18 Benztropine Mesylate [Benztropine Mesylate 2 mg Tablet] 2 mg PO Q12 11/30/18 Buspirone HCl 15 mg PO Q8 11/30/18 Esomeprazole Magnesium 40 mg PO Q6AM 11/30/18 Fluoxetine HCl 80 mg PO DAILY 11/30/18 Gabapentin [Neurontin 300 mg Capsule] 300 mg PO Q8 11/30/18 Haloperidol 10 mg PO QPM 11/30/18 Oxycodone HCl 15 mg PO Q6HP PRN 11/30/18 Tamsulosin HCl [Flomax 0.4 mg Cap.sr] 0.4 mg PO QPM 11/30/18 Levalbuterol HCl [Xopenex Neb 1.25 mg/3 ml Ampul] 1.25 mg NEB RTQ6 PRN #120 vial.neb 12/10/18 Nicotine [Nicoderm 21 mg/24 Hr Transderm Patch] 1 each TD DAILY #20 patch.td24 12/10/18 Rivaroxaban [Xarelto 15 mg Tablet] 15 mg PO BID #42 tablet 12/10/18 Sulfamethoxazole/Trimethoprim [Septra-Ds 800-160 mg Tablet] 1 tab PO Q12 #14 tablet 12/10/18 Umeclidinium [place] [Incruse 62.5 Mcg Ellipta 7 Dose/Dpi] 1 inh IH DAILY #1 inhaler 12/10/18 Ondansetron [Zofran Odt 4 mg Tablet] 1 - 2 tab PO Q4H PRN #15 tab.rapdis 12/16/18 Allergies/Adverse Reactions: iodine [Iodine] Allergy (Intermediate, Verified 11/24/18 14:10) Blisters Shellfish * [Shellfish] Allergy (Intermediate, Verified 11/24/18 14:10) Blisters clonazepam [From Klonopin] Allergy (Verified 11/24/18 14:10) Blisters Review of Systems ROS unobtainable: Due to endotracheal tube, Due to mental status Constitutional: PRESENT: as per HPI Physical Exam Vital Signs: Temp Pulse Resp BP Pulse Ox 97.7 F 18 124/84 99 08/15/19 01:41 08/15/19 01:41 08/15/19 01:41 08/15/19 01:41 Intake & Output 08/13/19 08/14/19 08/15/19 06:59 06:59 06:59 Intake Total 3 Output Total 1900 Balance -1897 Weight 112.1 kg Weight/Height Weight 112.1 kg General appearance: PRESENT: obese Head exam: PRESENT: atraumatic, normocephalic Eye exam: PRESENT: EOMI, PERRLA Ear exam: PRESENT: normal external ear exam Mouth exam: PRESENT: neck supple Teeth exam: PRESENT: edentulous Neck exam: ABSENT: JVD Respiratory exam: PRESENT: clear to auscultation wan, symmetrical. ABSENT: rales, rhonchi, wheezes Cardiovascular exam: PRESENT: RRR, +S1, +S2. ABSENT: diastolic murmur, systolic murmur Pulses: PRESENT: normal radial pulses, normal femoral pulses, +2 pedal pulses bilateral Vascular exam: PRESENT: normal capillary refill GI/Abdominal exam: PRESENT: hypoactive bowel sounds Extremities exam: ABSENT: pedal edema Musculoskeletal exam: PRESENT: normal inspection Neurological exam: PRESENT: CN II-XII grossly intact Skin exam: PRESENT: normal color. ABSENT: abrasion Tubes/Lines: PRESENT: Endotracheal Tube, Nasogastic Tube Laboratory/Radiographs Laboratory Results: 08/14/19 20:16 08/14/19 20:16 08/14/19 08/14/19 08/14/19 20:16 20:16 20:25 WBC 8.4 RBC 5.84 H Hgb 16.2 Hct 48.6 MCV 83 MCH 27.7 MCHC 33.3 RDW 15.5 H Plt Count 262 Seg Neutrophils % 64.7 Carbonic Acid 1.72 H HCO3/H2CO3 Ratio 13:1 ABG pH 7.24 L ABG pCO2 57.0 H ABG pO2 80.1 ABG HCO3 24.0 ABG O2 Saturation 93.7 L ABG Base Excess -4.4 FiO2 100% Sodium 143.0 Potassium 3.9 Chloride 108 H Carbon Dioxide 26 Anion Gap 9 BUN 16 Creatinine 1.02 Est GFR ( Amer) > 60 Glucose 143 H Calcium 9.4 Total Bilirubin 0.6 AST 51 Alkaline Phosphatase 80 Total Protein 7.7 Albumin 4.6 Lipase 459.2 H Urine Color Urine Appearance Urine pH Ur Specific [place] Urine Protein Urine Glucose (UA) Urine Ketones Urine Blood Urine Nitrite Ur Leukocyte Esterase Urine WBC (Auto) 08/14/19 20:28 WBC RBC Hgb Hct MCV MCH MCHC RDW Plt Count Seg Neutrophils % Carbonic Acid HCO3/H2CO3 Ratio ABG pH ABG pCO2 ABG pO2 ABG HCO3 ABG O2 Saturation ABG Base Excess FiO2 Sodium Potassium Chloride Carbon Dioxide Anion Gap BUN Creatinine Est GFR ( Amer) Glucose Calcium Total Bilirubin AST Alkaline Phosphatase Total Protein Albumin Lipase Urine Color STRAW Urine Appearance CLEAR Urine pH 7.0 Ur Specific [place] 1.002 Urine Protein NEGATIVE Urine Glucose (UA) NEGATIVE Urine Ketones NEGATIVE Urine Blood NEGATIVE Urine Nitrite NEGATIVE Ur Leukocyte Esterase NEGATIVE Urine WBC (Auto) 0 08/14/19 08/14/19 20:16 20:16 Creatine Kinase 533 H CK-MB (CK-2) 4.25 Troponin I < 0.012 NT-Pro-B Natriuret Pep 154 H Impressions: Chest X-Ray 08/14/19 20:20 IMPRESSION: 1. Proper ETT and NGT placement. 2. Cardiac enlargement and central vascular congestion. There is also mild bibasilar atelectasis. copyright 2011 [employer]- All Rights Reserved Head CT 08/14/19 20:20 IMPRESSION: 1. No acute intracranial abnormality identified. This exam was performed according to our departmental dose-optimization program, which includes automated exposure control, adjustment of the mA and/or kV according to patient size and/or use of iterative reconstruction technique. All labs, radiographs, diagnostic studies and EKGs were personally reviewed: Yes In addition, reports of radiographic and diagnostic studies were read: Yes Critical Time Critical Time (minutes): 68 -: The care of a critically ill patient is dynamic. This note represents a static moment in the admission process. Orders and treatments may be given simultaneously and urgently, and time is not security representative of the treatment process. This patient requires Critical Care secondary to life threatening organ or limb dysfunction. Without Critical Care services, the patient is at risk for increased mortality and morbidity.
[2019-08-15] MEDS ORDERED: DEXTROSE 40% GEL 15 GM TUBE PO PRN ×2 (03:39)
[2019-08-15] MEDS ORDERED: DEXTROSE 50%-WATER 25 GM/50 ML DISP.SYRIN IV PRN ×2 (03:39)
[2019-08-15] MEDS ORDERED: GLUCAGON,HUMAN RECOMB 1 MG INJ SUBCUT PRN (03:39)
[2019-08-15] MEDS ORDERED: PHARMACY COMMUNICATION ORDER MC NR (03:45)
[2019-08-15] MEDS: RINGERS SOLUTION,LACTATED 1,000 ML IV PRN ×2 (04:07→13:56)
[2019-08-15] MEDS: FAMOTIDINE INJ/PF 20 MG/2 ML SDV IV SCH ×3 (04:07→21:31)
[2019-08-15] MEDS: HEPARIN SOD (PORCINE) 5,000 UNIT/ML 1 ML VIAL SUBCUT SCH ×4 (04:07→21:31)
[2019-08-15] MEDS: PROPOFOL 1,000 MG/100 ML INFUS..BTL IV PRN (04:42)
[2019-08-15 05:26] LABS: HEMATOCRIT 47.5 % (37.9-51.0); MEAN CORPUSCULAR HEMOGLOBIN 27.6 pg (27.0-33.4); MEAN CORPUSCULAR HGB CONC 33.6 g/dL (32.0-36.0); MEAN CORPUSCULAR VOLUME 82 fl (80-97); PLATELET COUNT 264 10^3/uL (150-450); RED BLOOD COUNT 5.78 10^6/uL (4.35-5.55); RED CELL DISTRIBUTION WIDTH 15.7 % (11.5-14.0); WHITE BLOOD COUNT 14.1 10^3/uL (4.0-10.5)
[2019-08-15 05:33] LABS: INTERNATIONAL RATION (INR) 1.03; PROTHROMBIN TIME 13.5 SEC (11.4-15.4)
[2019-08-15 05:34] LABS: PARTIAL THROMBOPLASTIN TIME 29.8 SEC (23.5-35.8)
[2019-08-15 05:45] LABS: ALBUMIN 4.4 g/dL (3.5-5.0); ALKALINE PHOSPHATASE 76 U/L (38-126); ANION GAP 9 (5-19); ASPARTATE AMINO TRANSFERASE 51 U/L (17-59); BILIRUBIN,DIRECT 0.1 mg/dL (0.0-0.4); BILIRUBIN,TOTAL 0.5 mg/dL (0.2-1.3); BLOOD UREA NITROGEN 16 mg/dL (7-20); CALCIUM 9.4 mg/dL (8.4-10.2); CARBON DIOXIDE 22 mmol/L (22-30); CHLORIDE 112 mmol/L (98-107); GLUCOSE 121 mg/dL (75-110); POTASSIUM 4.7 mmol/L (3.6-5.0); TOTAL PROTEIN 7.5 g/dL (6.3-8.2)
[2019-08-15] MEDS ORDERED: HYDROMORPHONE HCL INJ/PF 2 MG/ML AMPULE IV PRN ×2 (07:06→11:56)
[2019-08-15] MEDS: LEVALBUTEROL HCL NEB 1.25 MG/3 ML AMPUL NEB SCH ×3 (08:33→20:34)
--- NOTE | 2019-08-15 08:54 | RADIOLOGY REPORT (SQ) ---
EXAM DESCRIPTION: KUB/ABDOMEN (SINGLE VIEW) IMAGES COMPLETED DATE/TIME: 08/15/2019 6:06 am REASON FOR STUDY: Check Placement of NG Tube COMPARISON: None. NUMBER OF VIEWS: One view. TECHNIQUE: Supine radiographic image of the abdomen acquired. LIMITATIONS: None. FINDINGS: BOWEL GAS PATTERN: Limited evaluation. CALCIFICATIONS: No calcifications in the upper abdomen. SOFT TISSUES: No radiographic abnormality. HARDWARE: The tip of the enteric tube projects at the level of the gastroesophageal junction. BONES: No abnormality. OTHER: No other finding. IMPRESSION: The tip of the enteric tube projects at the level of the gastroesophageal junction and s hould be advanced forward. TECHNICAL DOCUMENTATION: JOB ID: [id number] 2010 [employer]- All Rights Reserved Reading location - IP/workstation name: [email or web address]
--- NOTE | 2019-08-15 08:56 | RADIOLOGY REPORT (SQ) ---
EXAM DESCRIPTION: CHEST SINGLE VIEW IMAGES COMPLETED DATE/TIME: 08/15/2019 6:06 am REASON FOR STUDY: Respiratory failure COMPARISON: AP view of the chest from 08/14/2019. EXAM PARAMETERS: NUMBER OF VIEWS: One view. TECHNIQUE: An AP view of the chest was obtained. RADIATION DOSE: NA LIMITATIONS: None. FINDINGS: LUNGS AND PLEURA: Unchanged bilateral basilar predominant parenchymal opacities. MEDIASTINUM AND HILAR STRUCTURES: Stable mediastinal and hilar contours. HEART AND VASCULAR STRUCTURES: Stable cardiac silhouette. BONES: No acute findings. HARDWARE: The tip of the endotracheal tube projects 4.1 cm above the eva. The tip of the enteric tube projects past the gastroesophageal junction and outside the field of view of the radiograph. OTHER: No other finding. IMPRESSION: Proper position of the enteric and endotracheal tubes. Otherwise unchanged radiographic appearance of the chest. TECHNICAL DOCUMENTATION: JOB ID: [id number] 2010 [employer]- All Rights Reserved Reading location - IP/workstation name: [email or web address]
[2019-08-15 12:02] LABS: ARTERIAL BLOOD BASE EXCESS 2.2 mmol/L; ARTERIAL BLOOD FIO2 35%; ARTERIAL BLOOD H2CO3 1.12 mmol/L (1.05-1.35); ARTERIAL BLOOD HCO3 25.9 mmol/L (20-24); ARTERIAL BLOOD O2 SATURATION 97.1 % (94-98); ARTERIAL BLOOD PCO2 37.2 mmHg (35-45); ARTERIAL BLOOD PH 7.46 (7.35-7.45); ARTERIAL BLOOD PO2 87.4 mmHg (80-100)
[2019-08-16] MEDS: RINGERS SOLUTION,LACTATED 1,000 ML IV PRN ×3 (00:02→17:53)
[2019-08-16] MEDS: LEVALBUTEROL HCL NEB 1.25 MG/3 ML AMPUL NEB SCH ×4 (01:39→19:53)
[2019-08-16] MEDS: HEPARIN SOD (PORCINE) 5,000 UNIT/ML 1 ML VIAL SUBCUT SCH ×3 (05:31→21:14)
[2019-08-16 05:43] LABS: HEMATOCRIT 44.1 % (37.9-51.0); MEAN CORPUSCULAR HEMOGLOBIN 27.9 pg (27.0-33.4); MEAN CORPUSCULAR VOLUME 82 fl (80-97); PLATELET COUNT 252 10^3/uL (150-450); RED BLOOD COUNT 5.37 10^6/uL (4.35-5.55); RED CELL DISTRIBUTION WIDTH 15.9 % (11.5-14.0); WHITE BLOOD COUNT 10.7 10^3/uL (4.0-10.5)
[2019-08-16 06:06] LABS: ALBUMIN 4.1 g/dL (3.5-5.0); ALKALINE PHOSPHATASE 73 U/L (38-126); ANION GAP 7 (5-19); ASPARTATE AMINO TRANSFERASE 42 U/L (17-59); BILIRUBIN,TOTAL 0.5 mg/dL (0.2-1.3); BLOOD UREA NITROGEN 15 mg/dL (7-20); CALCIUM 9.4 mg/dL (8.4-10.2); CARBON DIOXIDE 22 mmol/L (22-30); CHLORIDE 112 mmol/L (98-107); GLUCOSE 114 mg/dL (75-110); POTASSIUM 3.7 mmol/L (3.6-5.0); TOTAL PROTEIN 7.1 g/dL (6.3-8.2)
[2019-08-16] MEDS ORDERED: HALOPERIDOL LACTATE INJ 5 MG/1 ML VIAL IV ONE (06:31)
[2019-08-16] MEDS ORDERED: HALOPERIDOL LACTATE INJ 5 MG/1 ML VIAL ONE (06:32)
[2019-08-16] MEDS ORDERED: DIPHENHYDRAMINE HCL 50 MG/ML VIAL IV ONE (07:53)
[2019-08-16] MEDS ORDERED: PHARMACY COMMUNICATION ORDER MC NR (08:00)
--- NOTE | 2019-08-16 08:21 | PDOC CRITICAL CARE PROG REPORT ---
General Date:: 08/16/19 ICU Day:: 2 Hospital Day:: 2 Resuscitation Status: Full Code Events in the past 12 to 24 Hours:: Extubated but stiff and not talking Review of systems relevant to events:: Neurological, respiratory. Reason for ICU Addmission:: Acute respiratory failure, intubated - Medications: Medications reviewed and adjusted accordingly: Yes Vasopressors:: None Sedation:: None Physical Exam Vital Signs: Temp Pulse Resp BP Pulse Ox 100.6 F H 96 35 H 151/108 H 91 L 08/16/19 05:14 08/16/19 01:39 08/16/19 05:31 08/16/19 05:31 08/16/19 05:31 Intake & Output 08/15/19 08/16/19 08/17/19 06:59 06:59 06:59 Intake Total 64 2052 Output Total 2225 1798 Balance -2161 254 Weight 112.4 kg 112.3 kg Weight/Height Weight 112.3 kg Height 6 ft 2 in General appearance: PRESENT: no acute distress, disheveled, obese Head exam: PRESENT: atraumatic, normocephalic Eye exam: PRESENT: conjunctiva pink, EOMI, PERRLA. ABSENT: scleral icterus Ear exam: PRESENT: normal external ear exam Mouth exam: PRESENT: moist, tongue midline Neck exam: ABSENT: carotid bruit, JVD, lymphadenopathy, thyromegaly Respiratory exam: PRESENT: decreased breath sounds, rhonchi Cardiovascular exam: PRESENT: tachycardia GI/Abdominal exam: PRESENT: normal bowel sounds, soft. ABSENT: distended, guarding, mass, organolmegaly, rebound, tenderness Rectal exam: PRESENT: deferred Gentrourinary exam: PRESENT: indwelling catheter Extremities exam: PRESENT: full ROM. ABSENT: calf tenderness, clubbing, pedal edema Musculoskeletal exam: PRESENT: normal inspection Neurological exam: PRESENT: CN II-XII grossly intact, other - Non verbal. Awake but also stiff. No cog wheeling Skin exam: PRESENT: dry, intact, warm. ABSENT: cyanosis, rash Laboratory/Radiographs Laboratory Results: 08/16/19 05:23 08/16/19 05:23 08/15/19 08/16/19 08/16/19 11:50 05:23 05:23 WBC 10.7 H RBC 5.37 Hgb 15.0 Hct 44.1 MCV 82 MCH 27.9 MCHC 34.0 RDW 15.9 H Plt Count 252 Carbonic Acid 1.12 HCO3/H2CO3 Ratio 23:1 ABG pH 7.46 H ABG pCO2 37.2 ABG pO2 87.4 ABG HCO3 25.9 H ABG O2 Saturation 97.1 ABG Base Excess 2.2 FiO2 35% Sodium 141.4 Potassium 3.7 Chloride 112 H Carbon Dioxide 22 Anion Gap 7 BUN 15 Creatinine 0.84 Est GFR ( Amer) > 60 Glucose 114 H Calcium 9.4 Total Bilirubin 0.5 AST 42 Alkaline Phosphatase 73 Total Protein 7.1 Albumin 4.1 08/14/19 08/14/19 20:16 20:16 Creatine Kinase 533 H CK-MB (CK-2) 4.25 Troponin I < 0.012 NT-Pro-B Natriuret Pep 154 H Impressions: Head CT 08/14/19 20:20 IMPRESSION: 1. No acute intracranial abnormality identified. This exam was performed according to our departmental dose-optimization program, which includes automated exposure control, adjustment of the mA and/or kV according to patient size and/or use of iterative reconstruction technique. KUB X-Ray 08/15/19 03:42 IMPRESSION: The tip of the enteric tube projects at the level of the gastroesophageal junction and should be advanced forward. Chest X-Ray 08/15/19 06:00 IMPRESSION: Proper position of the enteric and endotracheal tubes. Otherwise unchanged radiographic appearance of the chest. All labs, radiographs, diagnostic studies and EKGs were personally reviewed: Yes In addition, reports of radiographic and diagnostic studies were read: Yes Assessment and Plan - Diagnosis (1) Altered mental status Qualifiers: Altered mental status type: coma Coma depth: [place] coma 3-8 Coma timing: in the field (EMT or ambulance) Qualified Code(s): R40.2431 - [place] coma scale score 3-8, in the field [EMT or ambulance] Is this a current diagnosis for this admission?: Yes Plan: The patient is awake, but non verbal and not responding to questions. I believe this is more than just sleepiness after extubation. He has a hx of psychiatric medication ODs, accidental and his QT is a bit prolonged. He takes cogentin 2mg bid and he is not safe for PO. Will give IV benadryl for possible antipychotic rigidity. NMS is a possibilty given his mental status, fever and stiffness, no cog wheeling though. He will need an NG for administrations of regular psych meds for which he has been non compliant and has overdosed. (2) COPD (chronic obstructive pulmonary disease) Qualifiers: COPD type: unspecified COPD Qualified Code(s): J44.9 - Chronic obstructive pulmonary disease, unspecified Is this a current diagnosis for this admission?: Yes Plan: He does have rhonchi but no wheezing. Does not need steroids. Keep nebulizers. (3) Dyskinesia, tardive Is this a current diagnosis for this admission?: Yes Plan: He does have facial and some jerky movements that could be TD. However he has not had his cogentin either. IV benadryl to be given. (4) Bipolar disorder Qualifiers: Active/Remission status: currently active Is this a current diagnosis for this admission?: Yes Plan: In his record I see bipolar, schizophrenia, schizo-affective disorder and anxiety with depression. He may need a behavior health consult to help sort this out. Plan Summary: Keep in ICU today and try IV benedryl. He is not awake and alert enough to signal distress if sent to the floor. Critical Time Critical Time (minutes): 35 Level of Care: ICU Anticipated discharge: Home with Homehealth Within: Other -: 1. The care of a critical patient is a dynamic process. This note is a lead customer service representative synopsis but static in nature. The timeframe for treatments given in order is not necessarily the actual time these treatments may have been done. 2. This patient requires critical care secondary to ongoing requirements for therapy not offered or safe outside the critical care environment. Transfer to a lower level of care will result in altered life or limb morbidity and mortal ity. 3. Multidisciplinary rounds completed. 4. ABCDE bundle addressed.
[2019-08-16] MEDS: FAMOTIDINE INJ/PF 20 MG/2 ML SDV IV SCH ×2 (09:54→21:14)
[2019-08-16] MEDS ORDERED: (PENDING PHARMACY ID) (Benztropine Mesylate [Benztropine Mesylate 2 Mg Tablet] 2 MG) PO SCH (10:00)
[2019-08-16] MEDS ORDERED: (PENDING PHARMACY ID) (Fluoxetine Hcl [Fluoxetine Hcl] 80 MG) PO SCH (10:00)
[2019-08-16] MEDS ORDERED: (PENDING PHARMACY ID) (Buspirone Hcl [Buspirone Hcl] 30 MG) PO SCH (10:00)
[2019-08-16] MEDS: RIVAROXABAN 10 MG TABLET PO SCH (10:34)
[2019-08-16] MEDS: FLUOXETINE HCL 20 MG CAPSULE PO SCH (10:34)
[2019-08-16] MEDS: BUSPIRONE HCL 10 MG TABLET PO SCH ×2 (10:34→17:02)
[2019-08-16] MEDS: TAMSULOSIN HCL 0.4 MG CAP.SR.24H PO SCH (10:35)
[2019-08-16] MEDS: BENZTROPINE MESYLATE 1 MG TABLET PO SCH ×2 (10:35→21:14)
[2019-08-16] MEDS: FENOFIBRATE NANOCRYSTALLIZED 145 MG TABLET PO SCH (10:37)
--- NOTE | 2019-08-16 11:31 | RADIOLOGY REPORT (SQ) ---
EXAM DESCRIPTION: KUB/ABDOMEN (SINGLE VIEW) IMAGES COMPLETED DATE/TIME: 08/16/2019 8:44 am REASON FOR STUDY: Check Placement of NG Tube COMPARISON: KUB 07/16/2019. NUMBER OF VIEWS: One view. TECHNIQUE: Supine radiographic image of the abdomen acquired. LIMITATIONS: None. FINDINGS: BOWEL GAS PATTERN: Normal bowel gas pattern. No dilated loops. CALCIFICATIONS: No suspicious calcifications. SOFT TISSUES: No gross mass or suggestion of organomegaly. HARDWARE: Subdiaphragmatic course of an enteric tube with the tip terminating over the right upper qu adrant. Right upper quadrant surgical clips. BONES: Lower lumbar fusion hardware. No acute fracture. No worrisome bone lesions. OTHER: Bibasilar airspace opacities. IMPRESSION: Enteric tube tip terminating over the right upper quadrant over the expected region of t he distal stomach. TECHNICAL DOCUMENTATION: JOB ID: [id number] 2010 [employer]- All Rights Reserved Reading location - IP/workstation name: [email or web address]
[2019-08-16] MEDS ORDERED: OXYCODONE HCL IR 5 MG TABLET ONE (12:34)
[2019-08-16] MEDS: OXYCODONE HCL IR 5 MG TABLET NG PRN ×3 (12:39→23:04)
[2019-08-16] MEDS: HALOPERIDOL 5 MG TABLET PO SCH (17:02)
[2019-08-16] MEDS ORDERED: (PENDING PHARMACY ID) (Haloperidol [Haloperidol] 10 MG) PO SCH (18:00)
[2019-08-16] MEDS ORDERED: TRAZODONE HCL 50 MG TABLET PO SCH (22:00)
[2019-08-16] MEDS ORDERED: ATORVASTATIN CALCIUM 20 MG TABLET PO SCH (22:00)
[2019-08-16] MEDS ORDERED: (PENDING PHARMACY ID) (Trazodone Hcl [Trazodone Hcl] 200 MG) PO SCH (22:00)
[2019-08-16] MEDS ORDERED: ROPINIROLE HCL 1 MG TABLET PO SCH (22:00)
[2019-08-17] MEDS: RINGERS SOLUTION,LACTATED 1,000 ML IV PRN (00:29)
[2019-08-17] MEDS: LEVALBUTEROL HCL NEB 1.25 MG/3 ML AMPUL NEB SCH ×3 (02:30→14:09)
[2019-08-17] MEDS ORDERED: MORPHINE SULFATE 10 MG/ML INJ IV ONE (03:36)
[2019-08-17] MEDS ORDERED: MORPHINE SULFATE 10 MG/ML INJ ONE (03:36)
[2019-08-17] MEDS ORDERED: LORAZEPAM INJ 2 MG/1 ML VIAL IV ONE (04:04)
[2019-08-17] MEDS ORDERED: LORAZEPAM INJ 2 MG/1 ML VIAL ONE (04:08)
--- NOTE | 2019-08-17 04:38 | RADIOLOGY REPORT (SQ) ---
EXAM DESCRIPTION: XR CHEST 1 VIEW COMPLETED DATE/TME: 08/17/2019 00:00 CLINICAL HISTORY: Respiratory Distress COMPARISON: 08/15/2019 FINDINGS: Single frontal view of the chest. Tubes and lines: NG tube with tip below the diaphragm. Leads overlie the chest. Interval removal of endotracheal tube. Cardiomediastinal silhouette: Stable Lungs: Mild interval increase in patchy bibasilar opacities. No pneumothorax. Low lung volumes. Bones: Stable. Upper abdomen: Stable. IMPRESSION: 1. Mild interval increase in patchy bibasilar opacities. Interval removal of endotracheal tube.
[2019-08-17 04:53] LABS: ANION GAP 7 (5-19); BLOOD UREA NITROGEN 17 mg/dL (7-20); CALCIUM 9.4 mg/dL (8.4-10.2); CARBON DIOXIDE 23 mmol/L (22-30); CHLORIDE 113 mmol/L (98-107); CREATINE KINASE 1370 U/L (55-170); GLUCOSE 106 mg/dL (75-110); POTASSIUM 3.8 mmol/L (3.6-5.0)
[2019-08-17] MEDS: HEPARIN SOD (PORCINE) 5,000 UNIT/ML 1 ML VIAL SUBCUT SCH ×2 (05:09→17:39)
[2019-08-17] MEDS ORDERED: RACEPINEPHRINE HCL 2.25% NEB 0.5 ML AMPUL NEB ONE (07:12)
--- NOTE | 2019-08-17 07:29 | PDOC CRITICAL CARE PROG REPORT ---
General Date:: 08/17/19 ICU Day:: 2 Hospital Day:: 2 Resuscitation Status: Full Code Events in the past 12 to 24 Hours:: Extubated, has slight stridor this AM. Review of systems relevant to events:: Neurologic, pulmonary. Reason for ICU Addmission:: Extubated but still with poor mental status. Tenous respiratory status - Medications: Medications reviewed and adjusted accordingly: Yes Vasopressors:: None Sedation:: None Physical Exam Vital Signs: Temp Pulse Resp BP Pulse Ox 100.6 F H 95 25 H 127/75 H 94 08/16/19 05:14 08/17/19 02:30 08/17/19 06:01 08/17/19 06:00 08/17/19 06:01 Intake & Output 08/16/19 08/17/19 08/18/19 06:59 06:59 06:59 Intake Total 2052 3753 Output Total 1798 1085 Balance 254 2668 Weight 112.3 kg 109 kg Weight/Height Weight 109 kg Height 6 ft 2 in General appearance: PRESENT: no acute distress, obese Head exam: PRESENT: atraumatic, normocephalic Eye exam: PRESENT: conjunctiva pink, EOMI, PERRLA. ABSENT: scleral icterus Ear exam: PRESENT: normal external ear exam Mouth exam: PRESENT: moist, tongue midline Neck exam: PRESENT: other - Slight stridor. Respiratory exam: PRESENT: clear to auscultation wan, decreased breath sounds. ABSENT: rales, rhonchi, wheezes Cardiovascular exam: PRESENT: RRR. ABSENT: diastolic murmur, rubs, systolic m urmur GI/Abdominal exam: PRESENT: normal bowel sounds, soft. ABSENT: distended, guarding, mass, organolmegaly, rebound, tenderness Rectal exam: PRESENT: deferred Gentrourinary exam: PRESENT: indwelling catheter Extremities exam: PRESENT: full ROM. ABSENT: calf tenderness, clubbing, pedal edema Musculoskeletal exam: PRESENT: normal inspection Neurological exam: PRESENT: altered, CN II-XII grossly intact, other - Answers one simple question. I am not sure if he understood. Skin exam: PRESENT: dry, intact, warm. ABSENT: cyanosis, rash Laboratory/Radiographs Laboratory Results: 08/16/19 05:23 08/17/19 04:30 08/17/19 04:30 Sodium 142.9 Potassium 3.8 Chloride 113 H Carbon Dioxide 23 Anion Gap 7 BUN 17 Creatinine 0.81 Est GFR ( Amer) > 60 Glucose 106 Calcium 9.4 08/14/19 08/14/19 08/16/19 20:16 20:16 05:23 Creatine Kinase 533 H 639 H CK-MB (CK-2) 4.25 Troponin I < 0.012 NT-Pro-B Natriuret Pep 154 H 08/17/19 04:30 Creatine Kinase 1370 H CK-MB (CK-2) Troponin I NT-Pro-B Natriuret Pep Impressions: Head CT 08/14/19 20:20 IMPRESSION: 1. No acute intracranial abnormality identified. This exam was performed according to our departmental dose-optimization program, which includes automated exposure control, adjustment of the mA and/or kV according to patient size and/or use of iterative reconstruction technique. KUB X-Ray 08/16/19 07:53 IMPRESSION: Enteric tube tip terminating over the right upper quadrant over the expected region of the distal stomach. Chest X-Ray 08/17/19 00:00 IMPRESSION: 1. Mild interval increase in patchy bibasilar opacities. Interval removal of endotracheal tube. All labs, radiographs, diagnostic studies and EKGs were personally reviewed: Yes In addition, reports of radiographic and diagnostic studies were read: Yes Assessment and Plan - Diagnosis (1) Altered mental status Qualifiers: Altered mental status type: coma Coma depth: [place] coma 3-8 Coma timing: in the field (EMT or ambulance) Qualified Code(s): R40.2431 - [place] coma scale score 3-8, in the field [EMT or ambulance] Is this a current diagnosis for this admission?: Yes Plan: I have asked [facility] to see him from a psychiatry standpoint. The question is what are the best medications. He does not appear to be in NMS. He may have inadvertantly ODd as he has done before but he is not oriented enough to give coherent answer. (2) COPD (chronic obstructive pulmonary disease) Qualifiers: COPD type: unspecified COPD Qualified Code(s): J44.9 - Chronic obstructive pulmonary disease, unspecified Is this a current diagnosis for this admission?: Yes Plan: No wheezing but he get be on solumedrol for stridor. (3) Dyskinesia, tardive Is this a current diagnosis for this admission?: Yes Plan: This is a possibility. He has no further jerky mvements or facial grimacing. (4) Bipolar disorder Qualifiers: Active/Remission status: currently active Is this a current diagnosis for this admission?: Yes Plan: More likely the cause of his mental status. Keep on his meds for now. (5) Stridor Is this a current diagnosis for this admission?: Yes Plan: This is new today and not severe. Nevertheless he will be on steroids and receive racemic epinephrine. Because of his stridor, COPD and mental status he is best kept in the ICU for now. Plan Summary: ICU for today. Critical Time Critical Time (minutes): 35 Level of Care: ICU Anticipated discharge: Home Within: Other -: 1. The care of a critical patient is a dynamic process. This note is a territory account representative synopsis but static in nature. The timeframe for treatments given in order is not necessarily the actual time these treatments may have been done. 2. This patient requires critical care secondary to ongoing requirements for therapy not offered or safe outside the critical care environment. Transfer to a lower level of care will result in altered life or limb morbidity and mortality. 3. Multidisciplinary rounds completed. 4. ABCDE bundle addressed.
[2019-08-17] MEDS: TAMSULOSIN HCL 0.4 MG CAP.SR.24H PO SCH (09:10)
[2019-08-17] MEDS: OXYCODONE HCL IR 5 MG TABLET NG PRN (09:47)
[2019-08-17] MEDS: BENZTROPINE MESYLATE 1 MG TABLET PO SCH (09:47)
[2019-08-17] MEDS: FLUOXETINE HCL 20 MG CAPSULE PO SCH (09:48)
[2019-08-17] MEDS: RIVAROXABAN 10 MG TABLET PO SCH (09:48)
[2019-08-17] MEDS: BUSPIRONE HCL 10 MG TABLET PO SCH ×2 (09:48→17:39)
[2019-08-17] MEDS: FENOFIBRATE NANOCRYSTALLIZED 145 MG TABLET PO SCH (09:48)
[2019-08-17] MEDS: FAMOTIDINE INJ/PF 20 MG/2 ML SDV IV SCH (09:48)
[2019-08-17] MEDS ORDERED: METHYLPREDNISOLONE INJ 40 MG/1 ML SDV IV SCH (10:00)
[2019-08-17 14:14] VITALS: BP 134/87
[2019-08-17] MEDS ORDERED: LINEZOLID 600 MG TABLET PO SCH (16:30)
[2019-08-17] MEDS: HALOPERIDOL 5 MG TABLET PO SCH (17:39)
--- NOTE | 2019-08-17 18:02 | Left Against Medical Advice ---
Against Medical Advice Admission Date/Time: 08/15/19 00:04 Primary Care Provider: KAY BRUSH MD Date of Patient Emigration: 08/17/19 - Diagnosis: (1) Altered mental status Is this a current diagnosis for this admission?: Yes (2) COPD (chronic obstructive pulmonary disease) Is this a current diagnosis for this admission?: Yes (3) Dyskinesia, tardive Is this a current diagnosis for this admission?: Yes (4) Bipolar disorder Is this a current diagnosis for this admission?: Yes (5) Stridor Is this a current diagnosis for this admission?: Yes - Summary: Summary: Please see Admission and Progress Notes as well. DONALD GARRIDO is a 44 M, who LEFT AGAINST MEDICAL ADVICE. The Patient was admitted on 08/15/19 00:04. This patient is a 44 yo man who was intubated for an unknown reason. He is not sure. He has had this happen before after inadvertant ODs of psych meds but he also takes chronic narcotics. None were found in his system. He was quickly extubated and remained groggy for nearly a day, C/W an OD. He has staph in his sputum and was advised to stay at least another day to build up strength and receive antibiotics. He very much wanted to go home and said he would sign himself out. Both myself and his significant other could not make him stay and he signedAMA forms and left.
--- NOTE | 2019-08-18 10:58 | PSYCHOLOGICAL NOTE ---
Psych Note - Psych Note Date seen by psych provider: 08/16/19 Time seen by psych provider: 11:50 Psych Note: Reason for Consult:overdose Patient is unable to engage in evaluation. Clinician spoke with staff and requested notification of when he is able to engage.
== END 2019-08-17 17:58 | disposition left against medical advice (07) | DRG 208 ==
LOC: ER 20:11 → EH 08-15 00:04 → ICU 08-15 02:05
PROVIDERS: ADMIT Anesthesiology; ATTEND Anesthesiology
PROC: 5A1935Z Respiratory Ventilation, Less than 24 Consecutive Hours (ICD-10-PCS; principal; 2019-08-14)
DX: J96.00 Acute respiratory failure, unspecified whether with hypoxia or hypercapnia (principal); E78.5 Hyperlipidemia, unspecified; I10 Essential (primary) hypertension; K21.9 Gastro-esophageal reflux disease without esophagitis; F17.200 Nicotine dependence, unspecified, uncomplicated; R40.2431 Glasgow coma scale score 3-8, in the field [EMT or ambulance]; F31.9 Bipolar disorder, unspecified; Z79.899 Other long term (current) drug therapy; Z86.14 Personal history of Methicillin resistant Staphylococcus aureus infection; Z88.8 Allergy status to other drugs, medicaments and biological substances; Z90.49 Acquired absence of other specified parts of digestive tract; Z91.013 Allergy to seafood; J44.9 Chronic obstructive pulmonary disease, unspecified; G24.9 Dystonia, unspecified; Z79.891 Long term (current) use of opiate analgesic; Z03.818 Encounter for observation for suspected exposure to other biological agents ruled out
CPT/HCPCS: 36415; 36600; 51702; 70450; 71045; 74018; 80048; 80053; 80307; 81001; 82550; 82553; 82803; 82962; 83690; 83735; 83880; 84484; 85025; 85027; 85610; 85730; 87040; 87070; 87077; 87186; 87205; 87635; 93005; 93010; 94002; 94003; 94640; 99291; C9803; J0295; J1170; J1200; J1630; J1644; J2060; J2270; J2704; J2920; J3490; J7120; S0028

== ENCOUNTER → 2020-01-07 | Outpatient (CLI) | payer MEDICARE, MEDICAID ==
--- NOTE | 2020-01-07 17:02 | RADIOLOGY REPORT (SQ) ---
EXAM DESCRIPTION: CT ABD/PELVIS NO ORAL OR IV IMAGES COMPLETED DATE/TIME: 01/07/2020 3:52 pm REASON FOR STUDY: (R10.84)GENERALIZED ABDOMINAL PAIN R10.84 GENERALIZED ABDOMINAL PAIN COMPARISON: 05/28/2016 TECHNIQUE: CT scan of the abdomen and pelvis performed without intravenous or oral contrast. Images reviewed with lung, soft tissue, and bone windows. Reconstructed coronal and sagittal MPR images revi ewed. All images stored on PACS. All CT scanners at this facility use dose modulation, iterative reconstruction, and/or weight based d osing when appropriate to reduce radiation dose to as low as reasonably achievable (ALARA). [facility]: Dose Right [facility]: CareDose [facility]: Dose Right [facility]: Teradose 4D [facility]: [employer] RADIATION DOSE: CT Rad equipment meets quality standard of care and radiation dose reduction techniq ues were employed. CTDIvol: 20.9 mGy. DLP: 1285 mGy-cm.mGy. LIMITATIONS: None. FINDINGS: LOWER CHEST: No significant findings. No nodules or infiltrates. NON-CONTRASTED LIVER, SPLEEN, ADRENALS: Evaluation limited by lack of IV contrast. No identified sign ificant masses. PANCREAS: No masses. No peripancreatic inflammatory changes. GALLBLADDER: Surgically absent. RIGHT KIDNEY AND URETER: No suspicious masses. Assessment limited by lack of IV contrast. No signif icant calcifications. No hydronephrosis or hydroureter. LEFT KIDNEY AND URETER: No suspicious masses. Assessment limited by lack of IV contrast. No signifi cant calcifications. No hydronephrosis or hydroureter. AORTA AND RETROPERITONEUM: No aneurysm. No retroperitoneal masses or adenopathy. BOWEL AND PERITONEAL CAVITY: Retained stool. No obvious bowel mass or inflammation. APPENDIX: Normal. PELVIS, BLADDER, AND ABDOMINAL WALL:No abnormal masses. No free fluid. Bladder normal. BONES: Spinal hardware from L4-S1. Compression changes involving superior endplates of T12 and L1. OTHER: No other significant finding. IMPRESSION: Possible constipation. Osseous findings as described. COMMENT: Quality ID # [id number]: Final reports with documentation of one or more dose reduction techniques (e.g., Automated exposure control, adjustment of the mA and/or kV according to patient size, use of iterative reconstruction technique) TECHNICAL DOCUMENTATION: JOB ID: [id number] [employer]- All Rights Reserved Reading location - IP/workstation name: [email or web address]
== END ==
LOC: RAD 14:55
PROVIDERS: ATTEND Family Medicine
DX: R10.84 Generalized abdominal pain (principal)
CPT/HCPCS: 74176

== ENCOUNTER → 2020-02-21 | Outpatient (CLI) | payer MEDICARE, MEDICAID ==
--- NOTE | 2020-02-21 18:13 | RADIOLOGY REPORT (SQ) ---
EXAM DESCRIPTION: MRI LUMBAR SPINE WITHOUT IMAGES COMPLETED DATE/TIME: 02/21/2020 1:52 pm REASON FOR STUDY: LUMBAR REDIC M54.16 RADICULOPATHY, LUMBAR REGION COMPARISON: 09/10/2018 TECHNIQUE: Sagittal and Axial imaging includes T1, T2, STIR and gradient echo sequences. Coronal T2/ HASTE imaging. LIMITATIONS: None. FINDINGS: VISUALIZED UPPER ABDOMEN: Limited evaluation. No acute or suspicious findings suggested. SEGMENTATION: No transitional anatomy. The lowest well-developed disc space is labeled L5-S1. ALIGNMENT: Anatomic. VERTEBRAE: Minimally progressed anterior wedge compression deformity of the L1 vertebral body, now de monstrating nearly 50% loss of anterior body height. No edema to suggest acute on chronic injury. S table appearance of a T12 compression deformity. BONE MARROW: Normal. No marrow replacement or reactive changes. DISC SIGNAL: Normal. No significant abnormal signal or loss of height. POSTERIOR ELEMENTS: Stable postsurgical changes. No acute findings. HARDWARE: Status post intrapedicular screw in paraspinous rose fusion spanning the L4 through S1 level s. No evidence of hardware complication. CORD AND CONUS: Normal in size and signal intensity. Conus at the appropriate level. SOFT TISSUES: No aortic aneurysm seen. No bulky retroperitoneal adenopathy or mass. No paraspinal mas s or fluid. L1-L2: No significant spinal stenosis or exit foraminal stenosis. L2-L3: No significant spinal stenosis or exit foraminal stenosis. L3-L4: Shallow, broad-based posterior disc bulge with right paramedian annular fissure. Concomitant facet arthropathy. These findings effect mild central canal and mild bilateral neural foraminal narr owing. L4-L5: Stable postsurgical changes. No significant central canal stenosis. Mild bilateral neural fo raminal narrowing. L5-S1: Stable postsurgical changes. There appears to be a degree of osseous narrowing of the left la teral recess with a thickened left S1 nerve root suggesting a degree of impingement. LOWER THORACIC: Incompletely imaged. No stenosis seen. SACRUM: Visualized upper sacrum intact. OTHER: No other significant findings. IMPRESSION: Status post posterior fusion spanning the L4 through S1 levels without evidence of hardw are complication. The left S1 nerve root appears to be somewhat thickened suggesting a degree of imp ingement ; recommend correlation for associated symptoms. Mild progression in the previously charact erized L1 vertebral body anterior wedge compression deformity. Stable T12 compression deformity. TECHNICAL DOCUMENTATION: JOB ID: [id number] 2010 [employer]- All Rights Reserved Reading location - IP/workstation name: [email or web address]
== END ==
LOC: RAD 13:19
PROVIDERS: ATTEND Nurse Practitioner Family
DX: M51.16 Intervertebral disc disorders with radiculopathy, lumbar region (principal)
CPT/HCPCS: 72148